=== PATIENT | female | born 1940 | race Caucasian/White ===

== ENCOUNTER → 2016-02-12 | Outpatient (REF) | payer OTHER ==
[~2016-02-12] MED LIST: /ADVA50050; /ESOM40CA; /FEXO18TA; ACET65TA; ALBU83IN; CALCCHW12; CEFT500T; CRES20TA; DIOV320T; FERR325T; FLON0.05; MUCINEX; PLAV75TA2; SING10TA31; TAMIFLU; TRIC145T19; VITA100027; ZEBE5TAB; ZETI10TA
[2016-02-12 14:01] LABS: INR 1.05
[2016-02-12 14:47] LABS: BLOOD UREA NITROGEN 17 MG/DL (7-18); CREATININE FOR GFR 0.64 MG/DL (0.55-1.02); GLOMERULAR FILTRATION RATE > 60.0 (>39)
== END | disposition home or self-care (01) ==
LOC: M LABDRAWP 13:12 → M LABDRAW1 13:12
PROVIDERS: ATTEND Physical Medicine & Rehabilitation
DX: M43.16 Spondylolisthesis, lumbar region (principal); M16.12 Unilateral primary osteoarthritis, left hip; M48.06 Spinal stenosis, lumbar region; Z79.01 Long term (current) use of anticoagulants

== ENCOUNTER → 2016-03-31 | Outpatient (REF) | payer OTHER ==
[2016-03-31 14:04] LABS: ALBUMIN 3.7 GM/DL (3.2-5.2); ALBUMIN/GLOBULIN RATIO 1.23 (1.00-1.93); ALKALINE PHOSPHATASE 57 U/L (45-117); ALT/SGPT 15 U/L (12-78); ANION GAP 10 MEQ/L (8-16); AST/SGOT 11 U/L (15-37); BILIRUBIN,TOTAL 0.3 MG/DL (0.2-1.0); BLOOD UREA NITROGEN 27 MG/DL (7-18); CALCIUM LEVEL 9.6 MG/DL (8.8-10.2); CARBON DIOXIDE LEVEL 26 MEQ/L (21-32); CHLORIDE LEVEL 108 MEQ/L (98-107); CREATININE FOR GFR 0.62 MG/DL (0.55-1.02); FERRITIN 119 NG/ML (8-252); GLOMERULAR FILTRATION RATE > 60.0 (>39); GLUCOSE, FASTING 105 MG/DL (83-110); PERCENT SATURATION 18.3 % (13.2-37.4); SODIUM LEVEL 144 MEQ/L (136-145); TOTAL IRON BINDING CAPACITY 295 UG/DL (250-450); TOTAL PROTEIN 6.7 GM/DL (6.4-8.2); VITAMIN B12 LEVEL 1816 PG/ML (247-911)
[2016-03-31 14:05] LABS: POTASSIUM SERUM 5.3 MEQ/L (3.5-5.1)
[2016-03-31 14:08] LABS: BASO % 0.5 % (0.0-1.0); EOS # 0.3 K/mm3 (0.0-0.50); EOS % 4.3 % (0.0-3.0); LARGE UNSTAINED CELL # 0.1 K/mm3 (0.0-0.4); LARGE UNSTAINED CELL % 2.4 % (0.0-4.0); LYMPH # 1.4 K/mm3 (1.5-4.5); LYMPH % 20.7 % (24.0-44.0); MEAN CORPUSCULAR HGB CONC 32.8 g/dl (32.0-36.5); MEAN CORPUSCULAR VOLUME 82.2 fl (80.0-96.0); MONO # 0.6 K/mm3 (0.0-0.8); MONO % 9.9 % (0.0-5.0); NEUTROPHILS # 3.7 K/mm3 (1.8-7.7); NEUTROPHILS % 62.1 % (36.0-66.0); PLATELET COUNT, AUTOMATED 374 k/mm3 (150-450); RED CELL DISTRIBUTION WIDTH 14.7 % (11.5-14.5)
[2016-04-01 11:05] LABS: PRETREATED FOLATE FOR RBCFOL 14.2 NG/ML
== END ==
LOC: M SFHCPLAZ 10:16
PROVIDERS: ATTEND Family Medicine
DX: D50.9 Iron deficiency anemia, unspecified (principal); E53.8 Deficiency of other specified B group vitamins

== ENCOUNTER → 2016-07-15 | Outpatient (CLI) | payer OTHER ==
--- NOTE | 2016-07-15 12:12 | REPMRS ---
Patient History The patient states she has not had a clinical breast exam in over a year. Patient is postmenopausal. Family history of prostate cancer in father at age 50 or over. Digital Woman Screen Mammo: July 15, 2016 - Exam #: [id number] Bilateral CC and MLO view(s) were taken. Technologist: Queenie Kirby, Technologist Prior study comparison: July 23, 2015, digital woman screen mammo performed at [facility]. August 08, 2014, digital woman screen mammo performed at [facility]. July 13, 2013, digital woman screen mammo performed at [facility]. FINDINGS: There are scattered fibroglandular densities. There has been no change in the appearance of the mammogram from the prior studies. There is a mild amount of scattered fibroglandular density which is fairly symmetric. There is no interval development of dominant mass, architectural distortion, or clustered microcalcification suggestive of malignancy. ASSESSMENT: BI-RADS/ACR category 1 mammogram. Negative. Recommendation Routine screening mammogram in 1 year (for women over age 40). This mammogram was interpreted with the aid of an FDA-approved computer-aided dectection system. Electronically Signed By: Yonis Alexander MD 07/15/16 [id number]
== END ==
LOC: M WHC 10:53
PROVIDERS: ATTEND Family Medicine
DX: Z12.31 Encounter for screening mammogram for malignant neoplasm of breast (principal); Z78.0 Asymptomatic menopausal state; Z80.42 Family history of malignant neoplasm of prostate

== ENCOUNTER → 2016-08-15 | Outpatient (REF) | payer OTHER ==
[~2016-08-15] MED LIST changes: +ACET30TAB PO; +ADV250INH INH; +AMLO25TA PO; +ASPI81TA18 PO; +ASTE0.15; +AVAP150T31 PO; +BENA25TA10 PO; +BISO10TA PO; +BISO5TAB5 PO; +CALC1TAB74 PO; +CLAR1TAB2 PO; +COLA100C5 PO; -CRES20TA; +CRES20TA PO; +FERR240T PO; +FERR32TA PO; +MELA3TAB49 PO; +MIRA3350 PO; +MULT1CHW39 PO; +OMEG100011 PO; -PLAV75TA2; +PLAV75TA2 PO; +PROT1TAB2 PO; -VITA100027; +VITA100027 PO; +VITA10006 PO; +VITA100066 PO; +VITMTA PO
[2016-08-15 12:02] LABS: BASO # 0.2 K/mm3 (0.0-0.2); BASO % 2.6 % (0.0-1.0); EOS # 0.2 K/mm3 (0.0-0.50); EOS % 1.9 % (0.0-3.0); LARGE UNSTAINED CELL # 0.3 K/mm3 (0.0-0.4); LARGE UNSTAINED CELL % 3.3 % (0.0-4.0); LYMPH # 1.3 K/mm3 (1.5-4.5); LYMPH % 13.9 % (24.0-44.0); MEAN CORPUSCULAR HEMOGLOBIN 27.2 pg (27.0-33.0); MEAN CORPUSCULAR HGB CONC 32.5 g/dl (32.0-36.5); MEAN CORPUSCULAR VOLUME 83.7 fl (80.0-96.0); MONO # 0.7 K/mm3 (0.0-0.8); MONO % 7.3 % (0.0-5.0); NEUTROPHILS # 6.5 K/mm3 (1.8-7.7); PLATELET COUNT, AUTOMATED 334 k/mm3 (150-450); RED CELL DISTRIBUTION WIDTH 14.5 % (11.5-14.5); RETIC HEMOGLOBIN CONTENT CHr 28.8 PG (24-36); RETICULOCYTE ABSOLUTE ADVIA212 115 x10(9)/L (17-77); WHITE BLOOD COUNT 9.2 K/mm3 (4.0-10.0)
[2016-08-15 12:27] LABS: ALBUMIN 3.8 GM/DL (3.2-5.2); ALBUMIN/GLOBULIN RATIO 1.12 (1.00-1.93); ALKALINE PHOSPHATASE 57 U/L (45-117); ALT/SGPT 19 U/L (12-78); ANION GAP 7 MEQ/L (8-16); AST/SGOT 11 U/L (15-37); BILIRUBIN,TOTAL 0.4 MG/DL (0.2-1.0); BLOOD UREA NITROGEN 16 MG/DL (7-18); CALCIUM LEVEL 9.6 MG/DL (8.8-10.2); CARBON DIOXIDE LEVEL 30 MEQ/L (21-32); CHLORIDE LEVEL 106 MEQ/L (98-107); CHOLESTEROL LEVEL 118 MG/DL (<200); CREATININE FOR GFR 0.65 MG/DL (0.55-1.02); FERRITIN 47 NG/ML (8-252); FREE T4 1.02 NG/DL (0.76-1.46); GLOMERULAR FILTRATION RATE > 60.0 (>39); GLUCOSE, FASTING 103 MG/DL (83-110); PERCENT SATURATION 14.7 % (13.2-37.4); POTASSIUM SERUM 4.8 MEQ/L (3.5-5.1); SODIUM LEVEL 143 MEQ/L (136-145); TOTAL IRON BINDING CAPACITY 326 UG/DL (250-450); TOTAL PROTEIN 7.2 GM/DL (6.4-8.2); TRIGLYCERIDES LEVEL 348 MG/DL (<150)
[2016-08-18 13:39] LABS: ALBUMIN % 57.1 % (55.8-66.1)
[2016-08-18 13:40] LABS: ALBUMIN 4.11 GM/DL (3.29-5.55); GAMMA GLOBULIN % 11.9 % (11.1-18.8)
== END ==
LOC: M SFHCPLAZ 09:45
PROVIDERS: ATTEND Family Medicine
DX: D50.9 Iron deficiency anemia, unspecified (principal); I10 Essential (primary) hypertension

== ENCOUNTER → 2016-09-02 | Outpatient (REF) | payer OTHER ==
[2016-09-02 14:09] LABS: INR 0.98
== END ==
LOC: M LABDRAW1 13:43
PROVIDERS: ATTEND Physical Medicine & Rehabilitation
DX: S22.080D Wedge compression fracture of T11-T12 vertebra, subsequent encounter for fracture with routine healing (principal); X58.XXXD Exposure to other specified factors, subsequent encounter; Y92.9 Unspecified place or not applicable; Y93.9 Activity, unspecified; Y99.9 Unspecified external cause status; Z79.01 Long term (current) use of anticoagulants

== ENCOUNTER 2016-09-11 10:32 | Emergency (ER) | payer OTHER ==
[~2016-09-11] VITALS: Ht 152.4 cm; Wt 70.5 kg
[~2016-09-11 10:32] MED LIST changes: -ACET30TAB PO; -ADV250INH INH; -AMLO25TA PO; -ASPI81TA18 PO; -ASTE0.15; -AVAP150T31 PO; -BENA25TA10 PO; -BISO10TA PO; -BISO5TAB5 PO; -CALC1TAB74 PO; -CLAR1TAB2 PO; -COLA100C5 PO; -FERR240T PO; -FERR32TA PO; -MELA3TAB49 PO; -MIRA3350 PO; -MULT1CHW39 PO; -OMEG100011 PO; -PROT1TAB2 PO; -VITA10006 PO; -VITA100066 PO; -VITMTA PO
[2016-09-11] MEDS ORDERED: CLAR1TAB2 PO (11:06)
[2016-09-11] MEDS ORDERED: AVAP150T31 PO (11:06)
[2016-09-11] MEDS ORDERED: ASTE0.15 (11:06)
[2016-09-11] MEDS ORDERED: FERR240T PO (11:06)
[2016-09-11] MEDS ORDERED: BISO10TA PO (11:06)
[2016-09-11] MEDS ORDERED: ACET30TAB PO ×2 (11:06→12:40)
[2016-09-11] MEDS ORDERED: PROT1TAB2 PO (11:06)
[2016-09-11] MEDS ORDERED: VITA100066 PO (11:06)
[2016-09-11] MEDS ORDERED: ASPI81TA18 PO (11:06)
[2016-09-11] MEDS ORDERED: MULT1CHW39 PO (11:06)
[2016-09-11] MEDS ORDERED: MIRA3350 PO (11:06)
[2016-09-11] MEDS ORDERED: BENA25TA10 PO (11:06)
[2016-09-11] MEDS ORDERED: MELA3TAB49 PO (11:06)
[2016-09-11] MEDS ORDERED: OMEG100011 PO (11:06)
[2016-09-11] MEDS ORDERED: COLA100C5 PO (11:06)
[2016-09-11] MEDS ORDERED: VITA10006 PO (11:06)
[2016-09-11] MEDS ORDERED: AMLO25TA PO (11:06)
[2016-09-11] MEDS ORDERED: MORPHINE 2 MG/ML 1ML SYRINGE As Ordered ONE (11:24)
[2016-09-11] MEDS ORDERED: ONDANSETRON 4MG/2ML VIAL (J2405) IV ONE (11:30)
[2016-09-11] MEDS ORDERED: MORPHINE 2 MG/ML 1ML SYRINGE IV ONE (11:30)
[2016-09-11 12:17] VITALS: BP 158/71
--- NOTE | 2016-09-11 12:48 | REP ---
LUMBAR SPINE COMPLETE: 09/11/2016 CLINICAL HISTORY: Lumbar spine tender to palpation. COMPARISON: X-ray 07/21/2013, MRI 12/05/2014. FINDINGS: Five views show the normal lumbar lordosis slightly exaggerated. There are a few millimeters of anterolisthesis of L4 and L5 due to facet arthritis. Disc space is narrowed at L5-S1. There are discogenic endplate changes at L1-2 and T12-L1. A compression deformity is seen. Slight narrowing at L1-2 and anterior osteophytes at most levels. No compression deformity in the visualized lower thoracic levels. Facet arthropathy at L3-4 through L5-S1 with no spondylolysis. There is a mild dextrorotatory curve at L2. The pedicles, spinous and transverse processes are intact. Right upper quadrant clips and clips over the level of the upper aspect right iliac bone also noted. Gas pattern nonspecific. SI joints with sclerosis inferiorly representing some sacroiliitis, greater right than left. Hip degenerative changes and sclerosis symphysis pubis also noted. IMPRESSION: 1. Diffuse degenerative disc change and facet arthritis lower lumbar spine with a few millimeters of anterolisthesis of L4 on 5 unchanged with no compression deformity or destructive lesion. 2. Bilateral sacroiliitis right greater than left. There is degenerative changes in the lower thoracic spine. Vertebral degenerative changes without destructive bone lesion. No visible acute fracture. 3. If your clinical suspicion is high in a trauma setting, consider further imaging with CT. Signed by Saroj Lizarraga MD 09/11/2016 06:32 P
--- NOTE | 2016-09-11 13:20 | REP ---
AP pelvis with left hip: 09/11/2016. Clinical history: Left hip pain, tenderness. Comparison: Hip injection fluoroscopic image 06/23/2016, 04/21/2016, MRI hip 12/05/2014. AP pelvis shows pelvic ring intact. There is sacroiliitis right greater than left and some sclerosis at the symphysis pubis. I see no disruption or fracture of the pelvic ring . Iliac wings are intact. Degenerative disc and facet changes lower lumbar spine. Bones demineralized. Mild hip arthritis on the right. Severe hip arthritis on the left side with flattening of the femoral head, sclerosis of the subchondral bone of the acetabular roof and femoral head and cystic changes as well. There is some progressive flattening of the femoral head representing advanced osteoarthritis and possibly early AVN. No acute fracture. Impression: 1. Bilateral sacroiliitis with bilateral hip arthritis, left much worse than right and progressive hip arthritis symptoms and flattening of that femoral head with sclerosis, acetabular roof and hip with subchondral cyst as well. No definite acute fracture on these images. Certainly, progression of the left hip arthritis and its severity since the MRI in November 28, 2014. Signed by Saroj Lizarraga MD 09/11/2016 06:32 P
== END 2016-09-11 12:51 | disposition home or self-care (01) ==
LOC: M ED 10:32
DX: M54.32 Sciatica, left side (principal); M51.36 Other intervertebral disc degeneration, lumbar region; M46.1 Sacroiliitis, not elsewhere classified; Z87.891 Personal history of nicotine dependence; Z88.1 Allergy status to other antibiotic agents; Z88.2 Allergy status to sulfonamides; Z88.8 Allergy status to other drugs, medicaments and biological substances; Z79.82 Long term (current) use of aspirin; Z79.899 Other long term (current) drug therapy
CPT/HCPCS: 72110; 73502; 96374; 96375; 99283; J2405

== ENCOUNTER 2016-11-11 16:23 | Inpatient (IN) | payer OTHER, BC ==
[~2016-11-11] VITALS: Ht 152.4 cm; Wt 73.5 kg
[~2016-11-11 16:23] MED LIST changes: -ADV250INH INH; -BISO5TAB5 PO; -CALC1TAB74 PO; -DESFLURANE 240 ML INHALANT As Ordered ONE; -FERR32TA PO; -GLYCOPYRROLATE INJ 0.2 MG/ML 2 ML VIAL As Ordered ONE; -MIDAZOLAM INJ 2 MG/2 ML VIAL (J2250) As Ordered ONE; -NEOSTIGMINE 10 MG/10 ML VIAL (J2710) As Ordered ONE; -PHENYLEPHRINE INJ 10MG/ML VIAL (J2370) As Ordered ONE; -PHENYLephrine HCL 500 MCG/5 ML (100MCG/ML) SYRINGE (J2370) As Ordered ONE; -PROPOFOL 500 MG/50 ML VIAL As Ordered ONE; -REMIFENTANIL 1MG 3ML VIAL As Ordered ONE; -ROCURONIUM BROMIDE 50 MG/5 ML VIAL/SYRINGE As Ordered ONE; -VITMTA PO; -ePHEDrine SULFATE 25 MG/5 ML(5MG/ML) SYRINGE As Ordered ONE; -fentaNYL 100 MCG/2 ML INJECTION (J3010) As Ordered ONE
[2016-11-11 18:00] VITALS: BP 138/60
[2016-11-11] MEDS ORDERED: GASTROGRAFIN SOLUTION 30ML PO ONE ×2 (18:00)
[2016-11-11 18:12] LABS: ALBUMIN 3.9 GM/DL (3.2-5.2); ALBUMIN/GLOBULIN RATIO 1.15 (1.00-1.93); ALKALINE PHOSPHATASE 59 U/L (45-117); ALT/SGPT 19 U/L (12-78); ANION GAP 5 MEQ/L (8-16); AST/SGOT 9 U/L (15-37); BILIRUBIN,TOTAL 0.4 MG/DL (0.2-1.0); BLOOD UREA NITROGEN 20 MG/DL (7-18); CALCIUM LEVEL 9.3 MG/DL (8.8-10.2); CARBON DIOXIDE LEVEL 28 MEQ/L (21-32); CHLORIDE LEVEL 108 MEQ/L (98-107); CREATININE FOR GFR 0.55 MG/DL (0.55-1.02); GLOMERULAR FILTRATION RATE > 60.0 (>39); GLUCOSE, FASTING 96 MG/DL (83-110); POTASSIUM SERUM 4.3 MEQ/L (3.5-5.1); SODIUM LEVEL 141 MEQ/L (136-145); TOTAL PROTEIN 7.3 GM/DL (6.4-8.2)
[2016-11-11] MEDS ORDERED: VITMTA PO (18:27)
[2016-11-11] MEDS ORDERED: CALC1TAB74 PO (18:27)
[2016-11-11] MEDS ORDERED: BISO5TAB5 PO (18:27)
[2016-11-11] MEDS ORDERED: FERR32TA PO (18:27)
[2016-11-11] MEDS ORDERED: ADV250INH INH (18:27)
[2016-11-11] MEDS ORDERED: GASTROGRAFIN SOLUTION 30ML (Q9963) PO ONE ×2 (18:30)
[2016-11-11] MEDS ORDERED: ISOVUE-370 76% 100ML VIAL (Q9967) As Ordered ONE (19:50)
[2016-11-11 20:03] LABS: BASO % 0.2 % (0.0-1.0); EOS # 0.1 10^3/uL (0.0-0.50); EOS % 0.9 % (0.0-3.0); LYMPH # 1.4 10^3/uL (1.5-4.5); LYMPH % 15.1 % (24.0-44.0); MEAN CORPUSCULAR HEMOGLOBIN 26.9 pg (27.0-33.0); MEAN CORPUSCULAR HGB CONC 31.6 g/dl (32.0-36.5); MEAN CORPUSCULAR VOLUME 85.1 fl (80.0-96.0); MONO % 10.8 % (0.0-5.0); NEUTROPHILS # 6.7 10^3/uL (1.8-7.7); PLATELET COUNT, AUTOMATED 365 10^3/uL (150-450); RED CELL DISTRIBUTION WIDTH 15.5 % (11.5-14.5); WHITE BLOOD COUNT 9.5 10^3/uL (4.0-10.0)
[2016-11-11] MEDS: ADVAIR HFA 115/21MCG INHALER INH SCH (20:12)
--- NOTE | 2016-11-11 20:28 | REP ---
CT of the chest with IV contrast: Comparison is 02/04/2006. There is a 14 mm nodule in the anterior segment of the right lower lobe on image one. This was not present previously. There are no other masses or nodules. There are no infiltrates or effusions. There is no mediastinal or hilar adenopathy. No axillary adenopathy. Thoracic aorta is unremarkable. Cardiac size is normal. Impression: There is a 14 mm nodule in the anterior segment of the right lower lobe, not present on the comparison study. Signed by Chidi Urena MD 11/11/2016 08:20 P
--- NOTE | 2016-11-11 20:39 | REP ---
CT of the abdomen pelvis without and with IV contrast, multiphase imaging: Comparison is 12/14/2004. The hepatic parenchyma is homogeneous on all phases. There are no hepatic masses. There are surgical clips in the gallbladder fossa. The pancreas and spleen are unremarkable. The adrenals and kidneys are unchanged and unremarkable. Abdominal aorta is unremarkable. There is no retroperitoneal mesenteric adenopathy. There is no bowel distension. Pelvis: There are surgical clips at the cecal tip. There is wall thickening of the terminal ileum, however this is unchanged. There is a fat-containing midline ventral hernia above the umbilicus, unchanged. There is a small hiatal hernia, unchanged. The pelvic bowel loops are otherwise unremarkable. Impression: There is no mass, adenopathy, or ascites. There is chronic thickening of the terminal ileum, unchanged. There is a fat-containing ventral hernia, unchanged. Small hiatal hernia, unchanged. There are no lytic, blastic or destructive skeletal changes. There is degenerative disc disease in the lumbar spine. There is bilateral hip osteoarthritis, worse on the left. Signed by Chidi Urena MD 11/11/2016 08:31 P
[2016-11-11 20:46] LABS: ADD MORPHOLOGY? NO
[2016-11-11] MEDS: ROSUVASTATIN 10 MG TAB (CRESTOR) PO SCH (21:17)
[2016-11-11] MEDS: CALCIUM/VITAMIN D 500 MG TAB PO SCH (21:18)
[2016-11-11] MEDS: levETIRAcetam 250MG TABLET (KEPPRA) PO SCH (21:18)
[2016-11-11] MEDS: IRBESARTAN 150 MG TAB PO SCH (21:18)
[2016-11-11] MEDS: BISOPROLOL FUMARATE 5 MG TAB PO SCH (21:18)
[2016-11-11] MEDS: ACETAMINOPHEN 500 MG TAB PO PRN (21:19)
[2016-11-11 22:00] VITALS: BP 132/65
[2016-11-12 06:00] VITALS: BP 129/60
[2016-11-12 06:12] LABS: MEAN CORPUSCULAR HEMOGLOBIN 26.6 pg (27.0-33.0); MEAN CORPUSCULAR HGB CONC 32.2 g/dl (32.0-36.5); MEAN CORPUSCULAR VOLUME 82.5 fl (80.0-96.0); PLATELET COUNT, AUTOMATED 338 10^3/uL (150-450); RED CELL DISTRIBUTION WIDTH 14.9 % (11.5-14.5); WHITE BLOOD COUNT 7.7 10^3/uL (4.0-10.0)
[2016-11-12 06:20] LABS: ADD MANUAL DIFFER YES; DIFF SLIDE NUMBER 83
[2016-11-12 06:42] LABS: ALBUMIN 3.8 GM/DL (3.2-5.2); ALBUMIN/GLOBULIN RATIO 1.06 (1.00-1.93); ALKALINE PHOSPHATASE 62 U/L (45-117); ALT/SGPT 19 U/L (12-78); ANION GAP 8 MEQ/L (8-16); AST/SGOT 9 U/L (15-37); BILIRUBIN,TOTAL 0.4 MG/DL (0.2-1.0); BLOOD UREA NITROGEN 16 MG/DL (7-18); CALCIUM LEVEL 9.8 MG/DL (8.8-10.2); CARBON DIOXIDE LEVEL 27 MEQ/L (21-32); CHLORIDE LEVEL 106 MEQ/L (98-107); GLOMERULAR FILTRATION RATE > 60.0 (>39); GLUCOSE, FASTING 145 MG/DL (83-110); POTASSIUM SERUM 4.7 MEQ/L (3.5-5.1); SODIUM LEVEL 141 MEQ/L (136-145); TOTAL PROTEIN 7.4 GM/DL (6.4-8.2)
[2016-11-12 07:13] LABS: ANISOCYTOSIS 1+
[2016-11-12] MEDS: ADVAIR HFA 115/21MCG INHALER INH SCH ×2 (07:53→19:22)
[2016-11-12] MEDS ORDERED: PROHANCE 279.3MG/ML 5ML VIAL (A9576) As Ordered ONE (08:37)
[2016-11-12] MEDS ORDERED: PROHANCE 279.3MG/ML 15ML VIAL (A9576) As Ordered ONE (08:37)
--- NOTE | 2016-11-12 09:32 | REP ---
MRI BRAIN WITHOUT AND WITH CONTRAST: HISTORY: Left temporal lobe mass. CONTRAST : ProHance 17 mL. COMPARISON: CT 11/11/2016. A mass with ring-like enhancement is present in the left temporal lobe. The mass measures 2.5 cm in transverse by 4.5 cm in AP by 2.7 cm in cephalocaudal dimensions. Surrounding vasogenic edema is present. There is mass effect with partial effacement of the overlying cortical sulci and atrium and occipital horn of the left lateral ventricle. There is no midline shift. Increased signal intensity on T2-weighted images is present in the medial left parietal lobe. There is partial effacement of the overlying cortical sulci. There is no enhancement with contrast. Areas of increased signal intensity on T2-weighted images are present in the periventricular and subcortical white matter. This represents small vessel ischemic disease. There is no intraparenchymal hemorrhage or infarct. The ventricular system and cortical sulci are dilated consistent with mild volume loss. There is no extracerebral collection. A retention cyst is present in the left maxillary sinus. IMPRESSION: 1. 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 2. There is an area of increased signal intensity in the medial left parietal lobe with associated mass effect. This is suspicious for a low grade glioma. 3. Small vessel ischemic disease. 4. Mild volume loss. Signed by Elias Ruelas MD 11/12/2016 09:41 A
[2016-11-12] MEDS: levETIRAcetam 250MG TABLET (KEPPRA) PO SCH ×2 (10:07→21:45)
[2016-11-12] MEDS: FERROUS GLUCONATE 324 MG TAB PO SCH (10:07)
[2016-11-12] MEDS: IRBESARTAN 150 MG TAB PO SCH ×2 (10:07→21:45)
[2016-11-12] MEDS: CALCIUM/VITAMIN D 500 MG TAB PO SCH ×2 (10:08→21:44)
[2016-11-12] MEDS: PANTOPRAZOLE 40MG TAB (PROTONIX) PO SCH (10:08)
[2016-11-12] MEDS: CYANOCOBALAMIN 500 MCG TAB PO SCH (10:08)
[2016-11-12] MEDS: BISOPROLOL FUMARATE 5 MG TAB PO SCH ×2 (10:09→21:44)
[2016-11-12] MEDS: LORATADINE 10 MG TAB PO SCH (10:09)
[2016-11-12] MEDS: ACETAMINOPHEN 500 MG TAB PO PRN ×2 (11:02→21:44)
--- NOTE | 2016-11-12 11:58 | IPNPDOC ---
Subjective Date Seen The patient was seen on 11/12/16. Subjective Chief Complaint/HPI The patient is a 76-year-old female admitted with a reason for visit of Brain Mass. Events since last encounter Pt still having headaches. Still having some difficulty finding the correct words. Denies weakness, dizziness, vision changes, CP, SOB, Abd pain. Constitutional: Denies: Chills, Fever Pulmonary: Denies: Dyspnea Cardiovascular: Denies: Chest Pain Gastrointestinal: Denies: Abdominal Pain Neurological: Reports: Other Symptoms (Headaches. Difficulty finding the correct words.) Objective Physical Examination General Exam: Positive: Alert, No Acute Distress Neck Exam: Positive: Supple, Negative: JVD Chest Exam: Positive: Clear to auscultation Heart Exam: Positive: Rate Normal, Regular Rhythm Abdomen Exam: Positive: Normal bowel sounds, Soft, Negative: Tenderness Extremity Exam: Negative: Edema Neuro Exam: Positive: Normal Speech, Strength at 5/5 X4 ext, Cranial Nerves 3- 12 NL Assessment /Plan Problems (1) Brain mass Problem Specific Plan: Consult Specialist, Monitor Clinically, Repeat Labs Problem Text: 11/12 - MRI Brain: There is a ring enhancing mass in the left temporal lobe consistent with a high grade glioma. There is an area of increased signal intensity in the medial left parietal lobe with associated mass effect. This is suspicious for a low grade glioma. Small vessel ischemic disease. Mild volume loss. Dr Norris consulted and spoke to pt about bx on Thursday. Pt's aspirin and plavix were held at admission. CT Chest and Abd/pel were obtained to search for primary. CT Chest: 14 mm nodule in the anterior segment of the right lower lobe, not present on the comparison study. CT Abd/pel: No mass, adenopathy, or ascites. Chronic thickening of the terminal ileum, unchanged. Fat-containing ventral hernia, unchanged. Small hiatal hernia , unchanged. No lytic, blastic or destructive skeletal changes. Degenerative disc disease in the lumbar spine. Bilateral hip osteoarthritis, worse on the left. (2) Lung nodule Problem Text: 11/12 - CT Chest: 14 mm nodule in the anterior segment of the right lower lobe, not present on the comparison study. Discuss with attending. (3) HTN (hypertension) Status: Chronic Problem Specific Plan: Monitor Clinically Problem Text: On Avapro, Zebeta, Norvasc with hold parameters. (4) CAD (coronary artery disease) Status: Chronic Problem Specific Plan: Monitor Clinically Problem Text: Out patient aspirin and plavix have been held in anticipation of biopsy. (5) COPD (chronic obstructive pulmonary disease) Status: Chronic Problem Specific Plan: Monitor Clinically Problem Text: Stable (6) Hyperlipidemia Status: Chronic Problem Specific Plan: Monitor Clinically Problem Text: On Crestor. (7) Anemia Status: Chronic Problem Specific Plan: Monitor Clinically Problem Text: On Supplemental B12 and Iron. Plan/VTE VTE Prophylaxis Ordered?: Yes (TEDs and SCDs) VS, I&O, 24H, Fishbone Vital Signs/I&O Vital Signs Date Time Temp Pulse Resp B/P (MAP) Pulse Ox O2 Delivery O2 Flow Rate FiO2 11/12/16 06:00 98.0 65 18 129/60 (83) 95 Nasal Cannula 2.0 I&O- Last 24 Hours up to 6 AM 11/13/16 06:00 Intake Total 400 ml Output Total 200 ml Balance 200 ml Laboratory Data 24H LABS Laboratory Tests 2 11/11/16 17:17: Immature Granulocyte % (Auto) 3.0H, White Blood Count 9.5, Red Blood Count 4.50 , Hemoglobin 12.1, Hematocrit 38.3, Mean Corpuscular Volume 85.1, Mean Corpuscular Hemoglobin 26.9L, Mean Corpuscular Hemoglobin Concent 31.6L, Red Cell Distribution Width 15.5H, Platelet Count 365, Neutrophils (%) (Auto) 70.0H , Lymphocytes (%) (Auto) 15.1L, Monocytes (%) (Auto) 10.8H, Eosinophils (%) ( Auto) 0.9, Basophils (%) (Auto) 0.2, Neutrophils # (Auto) 6.7, Lymphocytes # ( Auto) 1.4L, Monocytes # (Auto) 1.0H, Eosinophils # (Auto) 0.1, Basophils # (Auto ) 0.0, Immature Granulocyte # (Auto) 0.3H, Nucleated Red Blood Cells % (auto) 0.0, Anion Gap 5L, Glomerular Filtration Rate > 60.0, Blood Urea Nitrogen 20H, Creatinine 0.55, Sodium Level 141, Potassium Level 4.3, Chloride Level 108H, Carbon Dioxide Level 28, Calcium Level 9.3, Aspartate Amino Transf (AST/SGOT) 9L , Alanine Aminotransferase (ALT/SGPT) 19, Alkaline Phosphatase 59, Total Bilirubin 0.4, Total Protein 7.3, Albumin 3.9, Albumin/Globulin Ratio 1.15, Thyroid Stimulating Hormone (TSH) 1.320 11/12/16 05:44: Immature Granulocyte % (Auto) , Nucleated Red Blood Cells % (auto) 0.0, Anion Gap 8, Glomerular Filtration Rate > 60.0, Blood Urea Nitrogen 16, Creatinine 0.60, Sodium Level 141, Potassium Level 4.7, Chloride Level 106, Carbon Dioxide Level 27, Calcium Level 9.8, Aspartate Amino Transf (AST/SGOT) 9L, Alanine Aminotransferase (ALT/SGPT) 19, Alkaline Phosphatase 62, Total Bilirubin 0.4, Total Protein 7.4, Albumin 3.8, Albumin/Globulin Ratio 1.06, Neutrophils 89H, Lymphocytes (Manual) 9L, Monocytes (Manual) 1, Atypical Lymphocytes 1, Platelet Estimate NORMAL, Anisocytosis 1+ CBC/BMP Laboratory Tests 11/11/16 17:17 Red Blood Count 4.50, Mean Corpuscular Volume 85.1, Mean Corpuscular Hemoglobin 26.9 L, Mean Corpuscular Hemoglobin Concent 31.6 L, Red Cell Distribution Width 15.5 H, Neutrophils (%) (Auto) 70.0 H, Lymphocytes (%) (Auto) 15.1 L, Monocytes (%) (Auto) 10.8 H, Eosinophils (%) (Auto) 0.9, Basophils (%) (Auto) 0.2, Neutrophils # (Auto) 6.7, Lymphocytes # (Auto) 1.4 L, Monocytes # (Auto) 1.0 H, Eosinophils # (Auto) 0.1, Basophils # (Auto) 0.0, Calcium Level 9.3, Aspartate Amino Transf (AST/SGOT) 9 L, Alanine Aminotransferase (ALT/SGPT) 19, Alkaline Phosphatase 59, Total Bilirubin 0.4, Total Protein 7.3, Albumin 3.9 11/12/16 05:44 Red Blood Count 4.63, Mean Corpuscular Volume 82.5, Mean Corpuscular Hemoglobin 26.6 L, Mean Corpuscular Hemoglobin Concent 32.2, Red Cell Distribution Width 14.9 H, Calcium Level 9.8, Aspartate Amino Transf (AST/SGOT) 9 L, Alanine Aminotransferase (ALT/SGPT) 19, Alkaline Phosphatase 62, Total Bilirubin 0.4, Total Protein 7.4, Albumin 3.8 Raciel Peck Nov 12, 2016 11:58
[2016-11-12 14:00] VITALS: BP 132/63
[2016-11-12] MEDS: ROSUVASTATIN 10 MG TAB (CRESTOR) PO SCH (21:44)
[2016-11-12 22:00] VITALS: BP 146/67
[2016-11-13] MEDS: ACETAMINOPH W/CODEINE #3 TAB UD PO PRN ×3 (00:12→20:49)
[2016-11-13 06:00] VITALS: BP 142/66
[2016-11-13 06:30] LABS: MEAN CORPUSCULAR HEMOGLOBIN 26.3 pg (27.0-33.0); MEAN CORPUSCULAR HGB CONC 31.9 g/dl (32.0-36.5); MEAN CORPUSCULAR VOLUME 82.5 fl (80.0-96.0); PLATELET COUNT, AUTOMATED 407 10^3/uL (150-450); RED CELL DISTRIBUTION WIDTH 14.8 % (11.5-14.5); WHITE BLOOD COUNT 13.8 10^3/uL (4.0-10.0)
[2016-11-13] MEDS: ADVAIR HFA 115/21MCG INHALER INH SCH ×2 (06:32→20:11)
[2016-11-13 06:39] LABS: ADD MANUAL DIFFER YES; ALBUMIN 3.7 GM/DL (3.2-5.2); ALBUMIN/GLOBULIN RATIO 0.95 (1.00-1.93); ALKALINE PHOSPHATASE 53 U/L (45-117); ALT/SGPT 19 U/L (12-78); ANION GAP 10 MEQ/L (8-16); AST/SGOT 7 U/L (15-37); BILIRUBIN,TOTAL 0.3 MG/DL (0.2-1.0); BLOOD UREA NITROGEN 24 MG/DL (7-18); CALCIUM LEVEL 10.2 MG/DL (8.8-10.2); CARBON DIOXIDE LEVEL 25 MEQ/L (21-32); CHLORIDE LEVEL 107 MEQ/L (98-107); CREATININE FOR GFR 0.69 MG/DL (0.55-1.02); DIFF SLIDE NUMBER 64; GLOMERULAR FILTRATION RATE > 60.0 (>39); GLUCOSE, FASTING 150 MG/DL (83-110); POTASSIUM SERUM 4.4 MEQ/L (3.5-5.1); SODIUM LEVEL 142 MEQ/L (136-145); TOTAL PROTEIN 7.6 GM/DL (6.4-8.2)
[2016-11-13 07:18] LABS: ANISOCYTOSIS 1+
[2016-11-13] MEDS: CALCIUM/VITAMIN D 500 MG TAB PO SCH ×2 (08:25→20:48)
[2016-11-13] MEDS: levETIRAcetam 250MG TABLET (KEPPRA) PO SCH ×2 (08:25→20:46)
[2016-11-13] MEDS: IRBESARTAN 150 MG TAB PO SCH ×2 (08:25→20:47)
[2016-11-13] MEDS: CYANOCOBALAMIN 500 MCG TAB PO SCH (08:25)
[2016-11-13] MEDS: FERROUS GLUCONATE 324 MG TAB PO SCH (08:25)
[2016-11-13] MEDS: PANTOPRAZOLE 40MG TAB (PROTONIX) PO SCH (08:25)
[2016-11-13] MEDS: LORATADINE 10 MG TAB PO SCH (08:26)
[2016-11-13] MEDS: BISOPROLOL FUMARATE 5 MG TAB PO SCH ×2 (08:26→20:48)
[2016-11-13] MEDS: MIRALAX *UNIT DOSE* 17GM PACKET PO SCH (08:26)
[2016-11-13] MEDS ORDERED: INFLUENZA VIRUS VACCINE HIGH DOSE 0.5 ML SYRINGE (90662) IM ONE (09:00)
[2016-11-13] MEDS ORDERED: PREVNAR 13 VACCINE SYRINGE (CPT CODE:90670) IM ONE (09:00)
--- NOTE | 2016-11-13 12:35 | IPNPDOC ---
Subjective Date Seen The patient was seen on 11/13/16. Subjective Chief Complaint/HPI The patient is a 76-year-old female admitted with a reason for visit of Brain Mass. Events since last encounter Pt still having headaches but notes pain meds are helping. Still having some difficulty finding the correct words at times. Denies weakness, dizziness, vision changes, CP, SOB, Abd pain. Constitutional: Denies: Chills, Fever Pulmonary: Denies: Dyspnea Cardiovascular: Denies: Chest Pain Gastrointestinal: Denies: Abdominal Pain Neurological: Reports: Other Symptoms (Headaches. Difficulty finding the correct words), Denies: Weakness Objective Physical Examination General Exam: Positive: Alert, No Acute Distress Neck Exam: Positive: Supple, Negative: JVD Chest Exam: Positive: Clear to auscultation Heart Exam: Positive: Rate Normal, Regular Rhythm Abdomen Exam: Positive: Normal bowel sounds, Soft, Negative: Tenderness Extremity Exam: Negative: Edema Neuro Exam: Positive: Normal Speech, Strength at 5/5 X4 ext, Cranial Nerves 3- 12 NL Assessment /Plan Problems (1) Brain mass Problem Specific Plan: Consult Specialist, Monitor Clinically, Repeat Labs Problem Text: 11/13 - WBC up to 13.8. Pt is on steroids. JFW: spoke witgh Dr Robin, he will let us know when we can restart ASA/ Plavix MRI Brain: There is a ring enhancing mass in the left temporal lobe consistent with a high grade glioma. There is an area of increased signal intensity in the medial left parietal lobe with associated mass effect. This is suspicious for a low grade glioma. Small vessel ischemic disease. Mild volume loss. Dr Norris consulted and spoke to pt about bx on Thursday. Pt's aspirin and plavix were held at admission. CT Chest and Abd/pel were obtained to search for primary. CT Chest: 14 mm nodule in the anterior segment of the right lower lobe, not present on the comparison study. CT Abd/pel: No mass, adenopathy, or ascites. Chronic thickening of the terminal ileum, unchanged. Fat-containing ventral hernia, unchanged. Small hiatal hernia , unchanged. No lytic, blastic or destructive skeletal changes. Degenerative disc disease in the lumbar spine. Bilateral hip osteoarthritis, worse on the left. (2) Lung nodule Problem Text: CT Chest: 14 mm nodule in the anterior segment of the right lower lobe, not present on the comparison study. Discuss with attending. (3) Brain compression Problem Specific Plan: Monitor Clinically Problem Text: Secondary to mass effect. See above. (4) HTN (hypertension) Status: Chronic Problem Specific Plan: Monitor Clinically Problem Text: On Avapro, Zebeta, Norvasc with hold parameters. (5) CAD (coronary artery disease) Status: Chronic Problem Specific Plan: Monitor Clinically Problem Text: Out patient aspirin and plavix have been held in anticipation of biopsy. (6) COPD (chronic obstructive pulmonary disease) Status: Chronic Problem Specific Plan: Monitor Clinically Problem Text: Stable (7) Hyperlipidemia Status: Chronic Problem Specific Plan: Monitor Clinically Problem Text: On Crestor. (8) Anemia Status: Chronic Problem Specific Plan: Monitor Clinically Problem Text: On Supplemental B12 and Iron. Plan/VTE VTE Prophylaxis Ordered?: Yes (TEDs and SCDs) VS, I&O, 24H, Fishbone Vital Signs/I&O Vital Signs Date Time Temp Pulse Resp B/P (MAP) Pulse Ox O2 Delivery O2 Flow Rate FiO2 11/13/16 11:13 18 11/13/16 08:30 Room Air 11/13/16 06:00 98.3 71 142/66 (91) 98 2.0 I&O- Last 24 Hours up to 6 AM 11/14/16 05:59 Intake Total 480 ml Output Total 300 ml Balance 180 ml Laboratory Data 24H LABS Laboratory Tests 2 11/13/16 05:59: Immature Granulocyte % (Auto) , Nucleated Red Blood Cells % (auto) 0.0, Neutrophils 90H, Lymphocytes (Manual) 8L, Monocytes (Manual) 2, Platelet Estimate INCREASED, Anisocytosis 1+, Anion Gap 10, Glomerular Filtration Rate > 60.0, Blood Urea Nitrogen 24H, Creatinine 0.69, Sodium Level 142, Potassium Level 4.4, Chloride Level 107, Carbon Dioxide Level 25, Calcium Level 10.2, Aspartate Amino Transf (AST/SGOT) 7L, Alanine Aminotransferase (ALT/SGPT) 19, Alkaline Phosphatase 53, Total Bilirubin 0.3, Total Protein 7.6, Albumin 3.7, Albumin/Globulin Ratio 0.95L CBC/BMP Laboratory Tests 11/13/16 05:59 Red Blood Count 4.75, Mean Corpuscular Volume 82.5, Mean Corpuscular Hemoglobin 26.3 L, Mean Corpuscular Hemoglobin Concent 31.9 L, Red Cell Distribution Width 14.8 H, Calcium Level 10.2, Aspartate Amino Transf (AST/SGOT) 7 L, Alanine Aminotransferase (ALT/SGPT) 19, Alkaline Phosphatase 53, Total Bilirubin 0.3, Total Protein 7.6, Albumin 3.7 Raciel Peck Nov 13, 2016 12:35 Rodrigo Gregorio MD Nov 13, 2016 14:23
[2016-11-13 12:54] LABS: INR 1.05
[2016-11-13 14:00] VITALS: BP 133/63
[2016-11-13] MEDS: ROSUVASTATIN 10 MG TAB (CRESTOR) PO SCH (20:46)
[2016-11-13 22:00] VITALS: BP 129/64
[2016-11-13] MEDS: NS 1,000 ML IV SCH (23:52)
[2016-11-14 06:00] VITALS: BP 148/76
[2016-11-14 06:12] LABS: MEAN CORPUSCULAR VOLUME 84.3 fl (80.0-96.0); PLATELET COUNT, AUTOMATED 358 10^3/uL (150-450); RED CELL DISTRIBUTION WIDTH 14.9 % (11.5-14.5); WHITE BLOOD COUNT 13.5 10^3/uL (4.0-10.0)
[2016-11-14 06:13] LABS: ADD MANUAL DIFFER YES; DIFF SLIDE NUMBER 30
[2016-11-14 06:49] LABS: BANDS 1 % (< 11)
[2016-11-14 06:50] LABS: ALBUMIN 3.6 GM/DL (3.2-5.2); ALBUMIN/GLOBULIN RATIO 0.97 (1.00-1.93); ALKALINE PHOSPHATASE 48 U/L (45-117); ALT/SGPT 23 U/L (12-78); ANION GAP 9 MEQ/L (8-16); AST/SGOT 11 U/L (15-37); BILIRUBIN,TOTAL 0.2 MG/DL (0.2-1.0); BLOOD UREA NITROGEN 30 MG/DL (7-18); CALCIUM LEVEL 9.3 MG/DL (8.8-10.2); CARBON DIOXIDE LEVEL 24 MEQ/L (21-32); CHLORIDE LEVEL 107 MEQ/L (98-107); CREATININE FOR GFR 0.65 MG/DL (0.55-1.02); GLOMERULAR FILTRATION RATE > 60.0 (>39); GLUCOSE, FASTING 139 MG/DL (83-110); POTASSIUM SERUM 4.4 MEQ/L (3.5-5.1); SODIUM LEVEL 140 MEQ/L (136-145); TOTAL PROTEIN 7.3 GM/DL (6.4-8.2)
[2016-11-14] MEDS: ADVAIR HFA 115/21MCG INHALER INH SCH ×2 (07:13→20:02)
[2016-11-14] MEDS: LORATADINE 10 MG TAB PO SCH (07:30)
[2016-11-14] MEDS: FERROUS GLUCONATE 324 MG TAB PO SCH (07:30)
[2016-11-14] MEDS: CYANOCOBALAMIN 500 MCG TAB PO SCH (07:31)
[2016-11-14] MEDS: levETIRAcetam 250MG TABLET (KEPPRA) PO SCH ×2 (07:31→20:44)
[2016-11-14] MEDS: CALCIUM/VITAMIN D 500 MG TAB PO SCH ×2 (07:31→20:50)
[2016-11-14] MEDS ORDERED: LIDOCAINE 2% MDV 20 ML VIAL As Ordered ONE (07:32)
[2016-11-14] MEDS: PANTOPRAZOLE 40MG TAB (PROTONIX) PO SCH (07:32)
[2016-11-14] MEDS: MIRALAX *UNIT DOSE* 17GM PACKET PO SCH (07:32)
[2016-11-14] MEDS ORDERED: THROMBIN SOLN 20,000 UNITS KIT As Ordered ONE (07:32)
[2016-11-14] MEDS: IRBESARTAN 150 MG TAB PO SCH ×2 (07:33→20:43)
[2016-11-14] MEDS ORDERED: BACITRACIN OINT 30GM As Ordered ONE (07:33)
[2016-11-14] MEDS ORDERED: BACITRACIN PWD 50,000 UNITS VIAL As Ordered ONE (07:33)
[2016-11-14] MEDS: BISOPROLOL FUMARATE 5 MG TAB PO SCH ×2 (07:33→20:44)
[2016-11-14] MEDS ORDERED: VANCOMYCIN 1000 MG/20 ML VIAL (J3370) As Ordered ONE ×2 (09:01→09:02)
--- NOTE | 2016-11-14 14:05 | REP ---
CT HEAD WITHOUT CONTRAST: HISTORY: Rule out bleed. COMPARISON: 11/11/2016. A corey hole is present in the left parietal bone. Small collections of air and a small amount of hemorrhage are present in the left parietal lobe. Surrounding edema is present. There is mass effect with partial effacement of the body, atrium, and occipital horn of the left lateral ventricle with very minimal midline shift to the right. There is no hydrocephalus. A small 2 mm acute subdural hematoma is present overlying the left parietal and temporal lobes. The visualized sinuses are clear. IMPRESSION: 1. There are small collections of air and a small amount of hemorrhage in the right parietal lobe. There is surrounding vasogenic edema with mass effect with very minimal midline shift to the right. 2. Small 2 mm acute left temporoparietal convexity subdural hematoma. Signed by Elias Ruelas MD 11/14/2016 02:14 P
[2016-11-14] MEDS ORDERED: ONDANSETRON 4MG/2ML VIAL (J2405) IV PRN (14:15)
[2016-11-14] MEDS ORDERED: PERCOCET 5MG/325MG TAB PO PRN (14:15)
[2016-11-14] MEDS ORDERED: METOCLOPRAMIDE INJ 10MG/2ML VIAL (J2765) IV PRN (14:15)
[2016-11-14] MEDS ORDERED: fentaNYL 100 MCG/2 ML INJECTION (J3010) IV PRN (14:15)
[2016-11-14] MEDS ORDERED: LR 1,000 ML IV SCH (14:15)
[2016-11-14] MEDS ORDERED: GLYCOPYRROLATE INJ 0.2 MG/ML 2 ML VIAL IV PRN (14:30)
[2016-11-14] MEDS ORDERED: GLYCOPYRROLATE INJ 0.2 MG/ML 2 ML VIAL ONE (14:47)
[2016-11-14 15:00] VITALS: BP 131/70
[2016-11-14] MEDS: NS 1,000 ML IV SCH ×2 (15:30→20:42)
--- NOTE | 2016-11-14 15:40 | ROOPDOC ---
[facility] Report Of Operation Report of Operation DATE OF SURGERY: 11/14/2016 SURGEON: Dr. Jefe Andres CLERK RATING: None PREOPERATIVE DIAGNOSIS: Left temporo-occipital intraaxial brain lesion POSTOPERATIVE DIAGNOSIS: Same PROCEDURE PERFORMED: 1. Left parietal corey hole placement 2. Stereotactic brain tumor biopsy ANESTHESIA: GETA. ESTIMATED BLOOD LOSS: 100cc. FINDINGS : Frozen section was consistent with necrosis. DRAINS: None COMPLICATIONS: None. DISPOSITION: Stable to the PACU. INDICATIONS FOR THE PROCEDURE HISTORY: Mrs. Santos is a 76 y/o F who presents with signs, symptoms and radiographic evidence of a Left intraaxial contrast enhancing temporo-occipital lobe mass. The patient presents for craniotomy for biopsy of her lesion. DIAGNOSTIC STUDY: MRI of brain showed contrast ring-enhanced nodular-mass lesion with perilesional edema and local mass effect. SURGICAL RISKS: The patient was well apprised of all objectives, benefits, risks and potential complications of the procedure, including but not limited to: worsening of current status, the possible need for further procedures, the risk of infection , headaches, CSF leak, possible spinal nerve injury resulting in paralysis, infection, injury to major vessels causing hemorrhage, stroke, loss of language function, coma and even . No assurance was given whether symptoms would improve following the procedure. The surgery is technically difficult procedure and despite the significant discomfort for the patient and the best effort of the physician, the surgery may be unsuccessful or may need to be aborted. Informed consent was obtained and secured in the chart after patient voiced understanding of these risks and decided to proceed with the operation. DESCRIPTION OF THE PROCEDURE The patient was transferred to the operating room. She was given preoperative prophylactic IV antibiotics. ANESTHESIA: The patient was sedated and intubated without difficulty by the anesthesia service. Eyes were taped shut after ointment was applied to prevent corneal abrasion. A Rupal Hugger was placed over the upper body to maintain control of core body temperature. A Robles catheter was inserted. POSITIONING: A Dixon head clamp was applied. The patient was placed in the supine position, rotated to the right with help of jelly bolster along left side of body and all pressure points were well padded. The hair was clipped in the area where the incision was planned and marked. Pre-prepping was done with alcohol. Stereotactic MRI was done on prior to surgery and the images were transferred to the neuronavigational system. Next, three-dimensional images were reconstructed. The patient underwent co-registration of the preoperative stereotactic MRI with her surface landmarks. Accuracy was within 3 mm. Superior sagittal sinus was identified as midline and mapped out. The planned craniotomy was outlined. OPERATIVE TECHNIQUE: The patient was prepped and draped in the standard sterile fashion. Local anesthetic was infiltrated along the line of the planned skin incision. A Left straight incision was performed with a # 15 scalpel blade to the level of the periosteum. The scalp was reflected sidewise and held in place utilizing cerebellar retractor. At this point, the neuronavigation probe was utilized to outline the trajectory towards the lesion to be biopsied. Using a high speed pneumatic 14 mm drill, corey hole was placed with a rolling up machine operator bit in the parietal-temporal region. A #3 [place] was utilized to detach the dura from the bone. Hemostasis was achieved utilizing a combination of bipolar electrocautery, monopolar electrocautery and absorbable gelatin compressed sponge Gelfoam and Surgicel. The wound was irrigated until clear. The dura was coagulated with the bipolar electrocautery. The frameless stereotactic biopsy guide was inserted and attached to the skull with three screws. The guide component was then fastened to this base with plastic hand screw. Again, with the neuronavigation probe, the desired biopsy depth was determined. The lesion was visualized on three-dimensional imaging. The depth of the lesion from surface of the skull was calculated to be 93 mm in depth. A disposable biopsy needle was marker at 95 mm and inserted to target with the cutting window in the closed position. 2 core biopsies were obtained and sent to pathology. Frozen section report came non-diagnostic. Another trajectory and depth were recalculated and subsequently more core biopsies were obtained. The biopsy needle gently removed. The wound was again irrigated with sterile solution until clear. The corey hole was packed with gelfoam and bone dust. The galea was closed with inverted interrupted stitches utilizing 3O polyglactin synthetic absorbable sutures. Scalp has been closed by metal vickie. Bacitracin ointment has been applied to the wound and sterile dressing has been placed over closed wound. All sponge counts, needle counts and instrument counts were correct at the end of the case times two. The patient tolerated the procedure well, without any complications and was transferred in stable condition to the recovery room. JEFE ANDRES MD Nov 14, 2016 15:40
[2016-11-14 16:00] VITALS: BP 159/68
[2016-11-14 18:00] VITALS: BP 136/65
[2016-11-14 20:15] VITALS: BP 164/70
[2016-11-14] MEDS: ROSUVASTATIN 10 MG TAB (CRESTOR) PO SCH (20:43)
[2016-11-14] MEDS: VANCOMYCIN HCL 1,000 MG, VIAL MATE ADAPTER 1 EACH in D5W 250 ML IV SCH (20:45)
[2016-11-14] MEDS: NYSTATIN 100,000 UNITS/GM TOPICAL PWD 15 GM TOP SCH (20:45)
[2016-11-14] MEDS: ACETAMINOPHEN 500 MG TAB PO PRN (20:46)
[2016-11-14] MEDS: CALCIUM CARBONATE 500 MG CHEW U/D PO PRN (20:47)
[2016-11-14 22:48] VITALS: BP 131/59
[2016-11-15] VITALS (8 sets, daily range): BP systolic 115–165; BP diastolic 58–74
[2016-11-15] MEDS: ACETAMINOPH W/CODEINE #3 TAB UD PO PRN (00:54)
[2016-11-15] MEDS ORDERED: traMADol 50 MG TAB PO ONE (03:15)
--- NOTE | 2016-11-15 04:40 | REPUSA ---
CLINICAL HISTORY: Postop. TECHNIQUE: Multiple axial brain CT scan sections were obtained from base to vertex without contrast a dministration. COMMENTS: Comparison is made to the prior exam performed on 11/14/2016. Unchanged left temporal/parietal edema w ith associated acute/subacute hemorrhagic products. Unchanged mild effacement of the adjacent sulci. Unchanged 4.2 mm midline shift to the right side. Unchanged minimal acute hemorrhagic products in the extra-axial CSF space. The study shows normal configuration of sella turcica. No hydrocephalus is present. No abnormal calci fications are noted. The sinuses and mastoid air cells are patent. IMPRESSION: Unchanged exam. Thank you for your kind referral of this patient.
[2016-11-15] MEDS: ADVAIR HFA 115/21MCG INHALER INH SCH ×2 (07:43→19:30)
[2016-11-15] MEDS: CALCIUM/VITAMIN D 500 MG TAB PO SCH ×2 (08:23→20:16)
[2016-11-15] MEDS: levETIRAcetam 250MG TABLET (KEPPRA) PO SCH ×2 (08:23→20:10)
[2016-11-15] MEDS: MIRALAX *UNIT DOSE* 17GM PACKET PO SCH (08:23)
[2016-11-15] MEDS: LORATADINE 10 MG TAB PO SCH (08:23)
[2016-11-15] MEDS: FERROUS GLUCONATE 324 MG TAB PO SCH (08:23)
[2016-11-15] MEDS: NYSTATIN 100,000 UNITS/GM TOPICAL PWD 15 GM TOP SCH ×2 (08:23→20:15)
[2016-11-15] MEDS: CYANOCOBALAMIN 500 MCG TAB PO SCH (08:23)
[2016-11-15] MEDS: BISOPROLOL FUMARATE 5 MG TAB PO SCH ×2 (08:24→20:10)
[2016-11-15] MEDS: IRBESARTAN 150 MG TAB PO SCH ×2 (08:24→20:11)
[2016-11-15] MEDS: PANTOPRAZOLE 40MG TAB (PROTONIX) PO SCH (08:24)
[2016-11-15] MEDS: VANCOMYCIN HCL 1,000 MG, VIAL MATE ADAPTER 1 EACH in D5W 250 ML IV SCH ×2 (08:25→20:12)
--- NOTE | 2016-11-15 11:12 | IPNPDOC ---
Subjective Date Seen The patient was seen on 11/15/16. Subjective Chief Complaint/HPI The patient is a 76-year-old female admitted with a reason for visit of Brain Mass. Events since last encounter Ms. Santos reports she is feeling okay today. She still has some difficulties with her memory, but her family is at bedside to help her. I had an extended conversation with her neurosurgeon, Dr. Andres, regarding his plans for her. From his perspective he does not need hospital care anymore. She will need this staple out in 1 week; he'll not be in town and unavailable to do this so he is requesting we do this next Thursday. He would like her to be on Decadron for one month. He believes that she should have a repeat MRI with contrast in 1 month to assess the growth trajectory of these masses. He believes she should be re-seen by neurosurgery in approximately a month, after the repeat MRI. He said this could be with him, with Dr. Jordan in town, or [id number] [place]. It will be up to the patient and her primary care provider where this follow-up should occur. General: Denies: Normal Appetite (decreased appetite, she reports she only ate several bites of her breakfast) Constitutional: Denies: Fever, Weakness Pulmonary: Denies: Cough Cardiovascular: Denies: Chest Pain, Palpitations Neurological: Reports: Numbness (in the lateral 3 fingers of her right hand. She reports a history of carpal tunnel syndrome and feels like this is the same. It has been stable for some time.) Psych: Reports: Memory Issues Objective Physical Examination General Exam: Positive: Alert, No Acute Distress, Other (family at bedside and assisting her with memory) Eye Exam: Positive: EOMI, Negative: Sclera icteric ENT Exam: Negative: Atraumatic (there is a staple over a well healing incision on her right frontal scalp) Neck Exam: Positive: Supple, Negative: JVD Chest Exam: Positive: Clear to auscultation Heart Exam: Positive: Rate Normal, Regular Rhythm Abdomen Exam: Positive: Normal bowel sounds, Soft, Negative: Tenderness Neuro Exam: Positive: Normal Speech, Cranial Nerves 3-12 NL, Negative: Strength at 5/5 X4 ext (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 She describes numbness in her R fingers 3-5. Tinel's test over the R carpal tunnel is positive. Dorsifelexion and plantarflexion are 5/5 bilaterally. ) Psych Exam: Positive: Mood NL, Negative: Memory Intact Assessment /Plan Problems (1) Brain mass Problem Specific Plan: Consult Specialist, Monitor Clinically, Repeat Labs Problem Text: I spoke with Dr. Andres today. He confirmed that the biopsy done yesterday was nondiagnostic. She will need a repeat MRI of the brain with contrast in about one month. She'll need another surgery neurosurgical evaluation after that test is done. Until then she should continue on Decadron ( she will need GI prophylaxis because of this). From his perspective she may be discharged home as soon as she is cleared by physical and occupational therapy. I spoke with Dr. Jordan, who was covering Dr. Andres today, to ask him about when to start the ASA and Plavix. He reviewed the case and asked why the patient was being discharged before a tissue dx was established. I related the above to him. The patient and family had already stated to me that they would be looking for a second opinion in town, not because they didn't trust Dr. Andres, but because they wanted another perspective on what is going on with her. I asked them if they wish to meet Dr. Jordan today rather than in a month and they were excited to do so. I have officially consulted Dr. Jordan and will await his recommendations; including on when to restart the Plavix and ASA. 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 There is an area of increased signal intensity in the medial left parietal lobe with associated mass effect. This is suspicious for a low grade glioma. Small vessel ischemic disease. Mild volume loss. CT Chest and Abd/pel were obtained to search for primary. CT Chest: 14 mm nodule in the anterior segment of the right lower lobe, not present on the comparison study. CT Abd/pel: No mass, adenopathy, or ascites. Chronic thickening of the terminal ileum, unchanged. Fat-containing ventral hernia, unchanged. Small hiatal hernia , unchanged. No lytic, blastic or destructive skeletal changes. Degenerative disc disease in the lumbar spine. Bilateral hip osteoarthritis, worse on the left. (2) Lung nodule Discussed With: Patient, Family with Pt Consent Problem Text: The patient family are, reasonably, asking whether this is related to her brain mass. She has no personal history of smoking but does describe a significant history of secondhand smoke throughout her life. Unfortunately I'm not able to answered their questions because the nondiagnostic biopsy. I will leave this for outpatient evaluation and management if deemed appropriate by her primary care provider. ------ CT Chest: 14 mm nodule in the anterior segment of the right lower lobe, not present on the comparison study. (3) Brain compression Status: Resolved Problem Specific Plan: Monitor Clinically Problem Text: This should have resolved to some degree with the corey hole and biopsy done yesterday. There may still be some mass effect because of the remaining masses in her brain, hopefully Decadron will assist with this as well. (4) HTN (hypertension) Status: Chronic Problem Specific Plan: Monitor Clinically Problem Text: On Avapro, Zebeta, Norvasc with hold parameters. (5) CAD (coronary artery disease) Status: Chronic Problem Specific Plan: Monitor Clinically Problem Text: Out-patient aspirin and plavix have been held in anticipation of biopsy. (6) COPD (chronic obstructive pulmonary disease) Status: Chronic Problem Specific Plan: Monitor Clinically Problem Text: Stable (7) Hyperlipidemia Status: Chronic Problem Specific Plan: Monitor Clinically Problem Text: On Crestor. (8) Anemia Status: Chronic Problem Specific Plan: Monitor Clinically Problem Text: On Supplemental B12 and Iron. Plan/VTE VTE Prophylaxis Ordered?: Yes (TEDs and SCDs) VTE Exclusion Pharmacological: Bleeding Risk (intracranial procedure) Plan Anticipated Discharge: Home With Services (based on therapy's recommendation) VS, I&O, 24H, Fishbone Vital Signs/I&O Vital Signs Date Time Temp Pulse Resp B/P (MAP) Pulse Ox O2 Delivery O2 Flow Rate FiO2 11/15/16 08:24 52 11/15/16 08:24 161/67 11/15/16 06:05 98.5 20 98 Nasal Cannula 2.0 Laboratory Data 24H LABS Laboratory Tests 2 11/14/16 13:40: Bedside Glucose (Misc Panel) 136H Ge Mendoza MD Nov 15, 2016 11:12
[2016-11-15] MEDS: traMADol 50 MG TAB PO PRN ×2 (12:44→20:10)
[2016-11-15] MEDS: ROSUVASTATIN 10 MG TAB (CRESTOR) PO SCH (20:11)
--- NOTE | 2016-11-15 21:24 | CR ---
DATE OF CONSULTATION: 11/15/2016 REASON FOR CONSULTATION: I saw this patient in the intensive care unit (ICU) at the request of Dr. Ge Mendoza. She is a very pleasant 76-year-old right-handed lady who is sitting by her bedside. She claims she has some headaches and difficulty in speech, though is getting better since she has been in the hospital. Available medical data in the chart reviewed. Pertinent neurological studies were also reviewed. The patient was recently found to have a large temporal lobe mass and underwent stereotactic biopsy; however, the results were inconclusive. The final pathology report is not back yet. The patient's family stated that she developed rather recent onset of mild confusion, unsteadiness, headaches, and difficulty with speech, though since the patient was on steroids, they claim these deficits are getting better though she still is unable to communicate adequately and freely on most occasions. The patient is awake and alert. Current medications were as noted in the emergency room (ER) chart. MEDICATIONS: Tylenol, codeine, Norvasc, ascorbic acid, aspirin, Cipro, calcium/vitamin D supplement, vitamin D, was on Plavix before admission, Benadryl, Colace, ferrous gluconate, Flonase, Avapro, Claritin, melatonin, multivitamin, omega 3, Protonix , MiraLAX, Crestor, Advair, and vitamin D. I have been told her aspirin and Plavix have been held from the recent surgery. ALLERGIES: She reports multiple allergies including ALCOHOL, CALCIUM CHANNEL BLOCKERS, CLAVULANIC ACID, MEPERIDINE, PENICILLIN AND PENICILLIN CROSS REACTORS, QUINOLONES, and SULFA DRUGS, amongst others. REVIEW OF SYSTEMS: As noted, including hypertension, hypertensive heart disease, coronary artery disease, status post coronary artery bypass graft (CABG), chronic obstructive pulmonary disease (COPD), hyperlipidemia, anemia, and has had multiple surgeries including appendectomy and cholecystectomy, cataracts, and most recently stereotactic biopsy of the left temporal lobe mass. PHYSICAL EXAMINATION: She is found to be awake and alert, oriented times three. She has significant expressive dysphasia. It appears she is oriented times three barring deficits from her dysphasia. Pupils are nearly equal and reacting. Extraocular movements are full, though coarse. Romberg's is positive despite a walker and two assists. She follows one-step commands with mild confusion and mild right hemiparesis. There is mild preponderance of deep tendon reflexes. Plantars are silent or equivocal, no clonus or obvious sensory level is seen, though has findings suggestive of peripheral neuropathy with absent ankle jerks and patchy hypoalgesia distally. Pedal pulses are palpable. Cranial nerves appear to be intact. Cerebellar examination is nearly within normal limits except for occasional dysmetria, dysrhythmia and visual overshooting, with a degree of truncal ataxia. Basal ganglia functions are adequate though there is a degree of bradykinesia, which could be related to her medications. She shows evidence of cervical spondylosis with mild disesthesia along C2-C3, as well as early C6 deficits. There is hip algesia along both median and ulnar nerves as well. Also shows evidence of lumbar spondylosis with L5-S1 sensory deficits. 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 PLAN: I did reveal the multiple CT scans and the MRI. The MRI does show a large left temporal lobe mass, which probably appears to be metastatic lesion, certainly high-grade glioma cannot be readily excluded. It has extensive vasogenic edema with mass effect. There is another small lesion in the left medial parietal lobe which does not enhance much, and this could be either a low-grade glioma or evolving metastatic lesion. The study also shows diffuse white matter microvascular disease. Apparently the verbal report of the frozen section was inconclusive, but I would wait for the permanent pathology report before making further recommendations regarding the management of this mass. Also would recommend evaluation by a thoracic surgeon to see if she will be a candidate for biopsy of the new lung mass. Unless the lung lesion is radiosensitive sensitive or chemo sensitive, she may benefit from debulking or excision of the large temporal mass. The patient and family, however, are aware of the grave prognosis and all the risks involved with more aggressive resection of the left temporal mass. Also would recommend seizure precautions and no unsupervised activity. I will be happy to make further recommendations once the final pathology from the brain biopsy is available. Case was discussed with Dr. Mendoza in the ICU. Please call me if you have any questions. ANNITA
[2016-11-16 04:37] LABS: MEAN CORPUSCULAR HEMOGLOBIN 26.6 pg (27.0-33.0); MEAN CORPUSCULAR HGB CONC 31.9 g/dl (32.0-36.5); MEAN CORPUSCULAR VOLUME 83.4 fl (80.0-96.0); RED CELL DISTRIBUTION WIDTH 14.6 % (11.5-14.5); WHITE BLOOD COUNT 13.1 10^3/uL (4.0-10.0)
[2016-11-16 05:11] LABS: ALBUMIN 3.2 GM/DL (3.2-5.2); ALKALINE PHOSPHATASE 54 U/L (45-117); ALT/SGPT 17 U/L (12-78); ANION GAP 7 MEQ/L (8-16); AST/SGOT 9 U/L (15-37); BILIRUBIN,TOTAL 0.4 MG/DL (0.2-1.0); BLOOD UREA NITROGEN 17 MG/DL (7-18); CALCIUM LEVEL 9.6 MG/DL (8.8-10.2); CARBON DIOXIDE LEVEL 29 MEQ/L (21-32); CHLORIDE LEVEL 103 MEQ/L (98-107); CREATININE FOR GFR 0.53 MG/DL (0.55-1.02); GLOMERULAR FILTRATION RATE > 60.0 (>39); GLUCOSE, FASTING 140 MG/DL (83-110); MAGNESIUM LEVEL 1.9 MG/DL (1.8-2.4); POTASSIUM SERUM 4.3 MEQ/L (3.5-5.1); SODIUM LEVEL 139 MEQ/L (136-145); TOTAL PROTEIN 6.4 GM/DL (6.4-8.2)
[2016-11-16] MEDS: ADVAIR HFA 115/21MCG INHALER INH SCH ×2 (07:21→19:38)
[2016-11-16 08:00] VITALS: BP 167/71
[2016-11-16] MEDS: BISOPROLOL FUMARATE 5 MG TAB PO SCH ×2 (09:00→20:46)
[2016-11-16] MEDS: FERROUS GLUCONATE 324 MG TAB PO SCH (09:08)
[2016-11-16] MEDS: PANTOPRAZOLE 40MG TAB (PROTONIX) PO SCH (09:08)
[2016-11-16] MEDS: MIRALAX *UNIT DOSE* 17GM PACKET PO SCH (09:08)
[2016-11-16] MEDS: CYANOCOBALAMIN 500 MCG TAB PO SCH (09:08)
[2016-11-16] MEDS: levETIRAcetam 250MG TABLET (KEPPRA) PO SCH ×2 (09:08→20:45)
[2016-11-16] MEDS: LORATADINE 10 MG TAB PO SCH (09:09)
[2016-11-16] MEDS: IRBESARTAN 150 MG TAB PO SCH ×2 (09:09→20:44)
[2016-11-16] MEDS: CALCIUM/VITAMIN D 500 MG TAB PO SCH ×2 (09:09→20:46)
[2016-11-16] MEDS: NYSTATIN 100,000 UNITS/GM TOPICAL PWD 15 GM TOP SCH ×2 (09:11→20:47)
[2016-11-16 12:00] VITALS: BP 115/55
--- NOTE | 2016-11-16 12:08 | IPNPDOC ---
Subjective Date Seen The patient was seen on 11/16/16. Subjective Chief Complaint/HPI The patient is a 76-year-old female admitted with a reason for visit of Brain Mass. Events since last encounter I woke her from a nap this morning when I saw her this morning. Consequently, she had more difficulty with word finding and pauses in her speech than she did yesterday. I suspect this has more to do with her tiredness and lower functioning reticular activating system than a clinical decline, but it should be followed. Dr. Jordan would like to wait until the pathology results are officially back rather than going on the frozen section being nondiagnostic. Additionally his opinion is we should work up the lung mass while she is in the hospital now, because he has a strong suspicion that the lesion in her brain is metastatic. Constitutional: Reports: Weakness, Fatigue ENT: Reports: Head Aches (related to her surgical sites) Pulmonary: Denies: Cough Cardiovascular: Denies: Chest Pain, Palpitations Objective Physical Examination General Exam: Positive: No Acute Distress, Other (was sleeping alone in her room when I entered, but is easily arousable) Eye Exam: Positive: EOMI, Negative: Sclera icteric ENT Exam: Negative: Atraumatic (there is a staple over a well healing incision on her right frontal scalp, and a clean bandage over the left occipital scalp) Neck Exam: Negative: Lymphadenopathy Chest Exam: Positive: Clear to auscultation Heart Exam: Positive: Rate Normal, Regular Rhythm Abdomen Exam: Positive: Normal bowel sounds, Soft, Negative: Tenderness Neuro Exam: Negative: Normal Speech (she has more difficulty with word finding and her speech is more broken, not fluent today.) Psych Exam: Negative: Memory Intact Assessment /Plan Problems (1) Brain mass Problem Specific Plan: Consult Specialist, Monitor Clinically, Repeat Labs Problem Text: Dr. Jordan has been consulted for a second opinion. Dr. Andres is out of town for a week. Dr. Jordan would like to wait until the official read of the brain biopsy is back before he makes a final decision that it's nondiagnostic; he recalls incidences where the frozen section has not been diagnostic but they were able to get a little more out of the fully fixed section to make a diagnosis. 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 There is an area of increased signal intensity in the medial left parietal lobe with associated mass effect. This is suspicious for a low grade glioma. Small vessel ischemic disease. Mild volume loss. CT Chest and Abd/pel were obtained to search for primary. CT Chest: 14 mm nodule in the anterior segment of the right lower lobe, not present on the comparison study. CT Abd/pel: No mass, adenopathy, or ascites. Chronic thickening of the terminal ileum, unchanged. Fat-containing ventral hernia, unchanged. Small hiatal hernia , unchanged. No lytic, blastic or destructive skeletal changes. Degenerative disc disease in the lumbar spine. Bilateral hip osteoarthritis, worse on the left. (2) Lung nodule Discussed With: Patient, Family with Pt Consent Problem Text: Dr. Jordan is requesting that we strongly consider working up this lung nodule while she is in the hospital. He has a strong clinical suspicion that the brain lesion is metastatic. Additionally if she has a primary lung cancer it may change his recommendation to do an excisional bx of the brain lesion which almost assuredly leave her with some weakness and speech deficits. Tomorrow we should contact IR and/or Pulm to see whether CT guided bx or navigational broncoscopy with bx is the best way to get a sample of this lesion. ------ CT Chest: 14 mm nodule in the anterior segment of the right lower lobe, not present on the comparison study. (3) Brain compression Status: Acute Problem Specific Plan: Monitor Clinically Problem Text: In discussion with Dr. Jordan he is concerned that the slight neurological declines are some post-op edema. He has ordered a repeat CT to evaluate this. Will monitor clinically and leave the management to him. (4) HTN (hypertension) Status: Chronic Problem Specific Plan: Monitor Clinically Problem Text: On Avapro, Zebeta, Norvasc with hold parameters. Pressures are a little higher today, but I will wait until after the CT to make any changes if needed. This may represent autoregulation in a swollen brain. (5) CAD (coronary artery disease) Status: Chronic Problem Specific Plan: Monitor Clinically Problem Text: Out-patient aspirin and plavix have been held and remain so in anticipation of a lung biopsy. (6) COPD (chronic obstructive pulmonary disease) Status: Chronic Problem Specific Plan: Monitor Clinically Problem Text: Stable (7) Hyperlipidemia Status: Chronic Problem Specific Plan: Monitor Clinically Problem Text: On Crestor. (8) Anemia Status: Chronic Problem Specific Plan: Monitor Clinically Problem Text: On Supplemental B12 and Iron. Plan/VTE VTE Prophylaxis Ordered?: Yes (TEDs and SCDs) VTE Exclusion Pharmacological: Bleeding Risk (intracranial procedure) Plan Anticipated Discharge: Home With Services (based on therapy's recommendation) VS, I&O, 24H, Fishbone Vital Signs/I&O Vital Signs Date Time Temp Pulse Resp B/P (MAP) Pulse Ox O2 Delivery O2 Flow Rate FiO2 11/16/16 09:10 54 167/71 11/16/16 08:00 Nasal Cannula 2.0 11/16/16 08:00 98.6 18 97 Laboratory Data 24H LABS Laboratory Tests 2 11/15/16 14:00: Urine Random Osmolality 257L 11/15/16 14:13: Osmolality 293 11/16/16 04:20: Anion Gap 7L, Glomerular Filtration Rate > 60.0, Blood Urea Nitrogen 17, Creatinine 0.53L, Sodium Level 139, Potassium Level 4.3, Chloride Level 103, Carbon Dioxide Level 29, Calcium Level 9.6, Aspartate Amino Transf (AST/SGOT) 9L , Alanine Aminotransferase (ALT/SGPT) 17, Alkaline Phosphatase 54, Total Bilirubin 0.4#, Total Protein 6.4, Albumin 3.2, Magnesium Level 1.9, Albumin/ Globulin Ratio 1.00, Prealbumin 29.3 CBC/BMP Laboratory Tests 11/16/16 04:20 Red Blood Count 4.58, Mean Corpuscular Volume 83.4, Mean Corpuscular Hemoglobin 26.6 L, Mean Corpuscular Hemoglobin Concent 31.9 L, Red Cell Distribution Width 14.6 H, Calcium Level 9.6, Aspartate Amino Transf (AST/SGOT) 9 L, Alanine Aminotransferase (ALT/SGPT) 17, Alkaline Phosphatase 54, Total Bilirubin 0.4 #, Total Protein 6.4, Albumin 3.2 Ge Mendoza MD Nov 16, 2016 12:08
[2016-11-16 12:45] VITALS: BP 129/62
--- NOTE | 2016-11-16 13:57 | REP ---
REASON FOR EXAM: Followup mass and postoperative changes. Multiple priors were reviewed, the latest of which is dated 11/15/2016 at 3:37 a.m. There are postoperative changes status quo. Low density is again seen in the posterior temporoparietal lobe region. Once again, this is causing ipsilateral ventricular effacement status quo. Air densities seen within the low density on the latest prior have nearly completely resolved and the degree of increased density consistent with hemorrhage in the low density region has significantly decreased. There are no new areas of hemorrhage and there is no new shift in the midline structures. There are no additional changes. IMPRESSION: Postoperative changes as described above. Signed by Mio Rowe DO 11/16/2016 02:10 P
[2016-11-16 16:00] VITALS: BP 122/60
[2016-11-16 20:00] VITALS: BP 129/61
[2016-11-16] MEDS: ROSUVASTATIN 10 MG TAB (CRESTOR) PO SCH (20:45)
[2016-11-17] VITALS: BP 167/71
[2016-11-17 04:00] VITALS: BP 152/69
[2016-11-17] MEDS: ADVAIR HFA 115/21MCG INHALER INH SCH ×2 (07:34→19:27)
[2016-11-17 08:00] VITALS: BP 127/62
[2016-11-17] MEDS: MIRALAX *UNIT DOSE* 17GM PACKET PO SCH (08:23)
[2016-11-17] MEDS: FERROUS GLUCONATE 324 MG TAB PO SCH (08:23)
[2016-11-17] MEDS: LORATADINE 10 MG TAB PO SCH (08:23)
[2016-11-17] MEDS: CALCIUM/VITAMIN D 500 MG TAB PO SCH ×2 (08:24→21:16)
[2016-11-17] MEDS: levETIRAcetam 250MG TABLET (KEPPRA) PO SCH ×2 (08:24→21:14)
[2016-11-17] MEDS: CYANOCOBALAMIN 500 MCG TAB PO SCH (08:24)
[2016-11-17] MEDS: PANTOPRAZOLE 40MG TAB (PROTONIX) PO SCH (08:24)
[2016-11-17] MEDS: IRBESARTAN 150 MG TAB PO SCH ×2 (08:25→21:15)
[2016-11-17] MEDS: BISOPROLOL FUMARATE 5 MG TAB PO SCH ×2 (08:25→21:16)
[2016-11-17] MEDS: NYSTATIN 100,000 UNITS/GM TOPICAL PWD 15 GM TOP SCH ×2 (08:26→21:14)
--- NOTE | 2016-11-17 11:22 | IPNPDOC ---
Subjective Date Seen The patient was seen on 11/17/16. Subjective Chief Complaint/HPI The patient is a 76-year-old female admitted with a reason for visit of Brain Mass. Events since last encounter Speech continues to improve. Able to type with family today. Denies c/o. Constitutional: Denies: Chills, Fever, Night Sweats ENT: Denies: Head Aches, Ear Pain, Dysphagia Pulmonary: Denies: Dyspnea, Cough Gastrointestinal: Denies: Nausea, Vomiting, Abdominal Pain, Diarrhea, Constipation Genitourinary: Denies: Dysuria, Frequency, Incontinence, Retention Psych: Reports: Mood Normal, Denies: Depression, Memory Issues Objective Physical Examination General Exam: Positive: No Acute Distress, Other (was sleeping alone in her room when I entered, but is easily arousable) Eye Exam: Positive: EOMI, Negative: Sclera icteric ENT Exam: Negative: Atraumatic (there is a staple over a well healing incision on her right frontal scalp, and a clean bandage over the left occipital scalp) Neck Exam: Negative: Lymphadenopathy Chest Exam: Positive: Clear to auscultation Heart Exam: Positive: Rate Normal, Regular Rhythm Abdomen Exam: Positive: Normal bowel sounds, Soft, Negative: Tenderness Neuro Exam: Negative: Normal Speech (she has more difficulty with word finding ) Psych Exam: Negative: Memory Intact Assessment /Plan Problems (1) Brain mass Problem Specific Plan: Consult Specialist, Monitor Clinically, Repeat Labs Problem Text: 11/17/20137: pathology pending. Neurosurgery following Dr. Jordan has been consulted for a second opinion. Dr. Andres is out of town for a week. Dr. Jordan would like to wait until the official read of the brain biopsy is back before he makes a final decision that it's nondiagnostic; he recalls incidences where the frozen section has not been diagnostic but they were able to get a little more out of the fully fixed section to make a diagnosis. 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 There is an area of increased signal intensity in the medial left parietal lobe with associated mass effect. This is suspicious for a low grade glioma. Small vessel ischemic disease. Mild volume loss. CT Chest and Abd/pel were obtained to search for primary. CT Chest: 14 mm nodule in the anterior segment of the right lower lobe, not present on the comparison study. CT Abd/pel: No mass, adenopathy, or ascites. Chronic thickening of the terminal ileum, unchanged. Fat-containing ventral hernia, unchanged. Small hiatal hernia , unchanged. No lytic, blastic or destructive skeletal changes. Degenerative disc disease in the lumbar spine. Bilateral hip osteoarthritis, worse on the left. (2) Lung nodule Discussed With: Patient, Family with Pt Consent Problem Text: 11/17/2016: Pulmonology, informal consult, advised against bronchoscopy. Recommends interventional to see if can get to nodule. Dr. Jordan is requesting that we strongly consider working up this lung nodule while she is in the hospital. He has a strong clinical suspicion that the brain lesion is metastatic. Additionally if she has a primary lung cancer it may change his recommendation to do an excisional bx of the brain lesion which almost assuredly leave her with some weakness and speech deficits. Tomorrow we should contact IR and/or Pulm to see whether CT guided bx or navigational bronchoscopy with bx is the best way to get a sample of this lesion. ------ CT Chest: 14 mm nodule in the anterior segment of the right lower lobe, not present on the comparison study. (3) Brain compression Status: Acute Problem Specific Plan: Monitor Clinically Problem Text: In discussion with Dr. Jordan he is concerned that the slight neurological declines are some post-op edema. He has ordered a repeat CT to evaluate this. Will monitor clinically and leave the management to him. (4) HTN (hypertension) Status: Chronic Problem Specific Plan: Monitor Clinically Problem Text: On Avapro, Zebeta, Norvasc with hold parameters. Pressures are a little higher today, but I will wait until after the CT to make any changes if needed. This may represent autoregulation in a swollen brain. (5) CAD (coronary artery disease) Status: Chronic Problem Specific Plan: Monitor Clinically Problem Text: Out-patient aspirin and plavix have been held and remain so in anticipation of a lung biopsy. (6) COPD (chronic obstructive pulmonary disease) Status: Chronic Problem Specific Plan: Monitor Clinically Problem Text: Stable (7) Hyperlipidemia Status: Chronic Problem Specific Plan: Monitor Clinically Problem Text: On Crestor. (8) Anemia Status: Chronic Problem Specific Plan: Monitor Clinically Problem Text: On Supplemental B12 and Iron. Plan/VTE VTE Prophylaxis Ordered?: Yes (TEDs and SCDs) VTE Exclusion Pharmacological: Bleeding Risk (intracranial procedure) Plan Anticipated Discharge: Home With Services (based on therapy's recommendation) VS, I&O, 24H, Fishbone Vital Signs/I&O Vital Signs Date Time Temp Pulse Resp B/P (MAP) Pulse Ox O2 Delivery O2 Flow Rate FiO2 11/17/16 08:25 66 127/62 11/17/16 08:00 98.4 96 Nasal Cannula 2.0 11/17/16 04:00 18 I&O- Last 24 Hours up to 6 AM 11/18/16 06:00 Intake Total 120 ml Balance 120 ml Nancy Johns [employer] Nov 17, 2016 11:22
[2016-11-17 11:35] LABS: MEAN CORPUSCULAR HEMOGLOBIN 26.5 pg (27.0-33.0); MEAN CORPUSCULAR VOLUME 82.7 fl (80.0-96.0); PLATELET COUNT, AUTOMATED 463 10^3/uL (150-450); RED CELL DISTRIBUTION WIDTH 14.6 % (11.5-14.5); WHITE BLOOD COUNT 20.4 10^3/uL (4.0-10.0)
[2016-11-17 11:49] LABS: ADD MANUAL DIFFER YES; DIFF SLIDE NUMBER 185
[2016-11-17 12:00] VITALS: BP 92/54
[2016-11-17 12:18] LABS: ALBUMIN 3.6 GM/DL (3.2-5.2); ALBUMIN/GLOBULIN RATIO 1.06 (1.00-1.93); ALKALINE PHOSPHATASE 52 U/L (45-117); ALT/SGPT 19 U/L (12-78); ANION GAP 10 MEQ/L (8-16); AST/SGOT 9 U/L (15-37); BILIRUBIN,TOTAL 0.4 MG/DL (0.2-1.0); BLOOD UREA NITROGEN 23 MG/DL (7-18); CALCIUM LEVEL 9.5 MG/DL (8.8-10.2); CARBON DIOXIDE LEVEL 28 MEQ/L (21-32); CHLORIDE LEVEL 100 MEQ/L (98-107); GLOMERULAR FILTRATION RATE > 60.0 (>39); GLUCOSE, FASTING 108 MG/DL (83-110); POTASSIUM SERUM 4.2 MEQ/L (3.5-5.1); SODIUM LEVEL 138 MEQ/L (136-145)
[2016-11-17 13:30] LABS: ANISOCYTOSIS 1+
[2016-11-17] MEDS ORDERED: ISOVUE-370 76% 100ML VIAL (Q9967) As Ordered ONE (15:45)
[2016-11-17 16:00] VITALS: BP 146/66
--- NOTE | 2016-11-17 17:22 | REP ---
CT HEAD WITHOUT AND WITH CONTRAST: HISTORY: Altered mental status. CONTRAST: Isovue-370, 75 mL. COMPARISON: 11/16/2016. A mass with ring like enhancement is present in the posterior left temporal lobe. Surrounding edema is present. There is mass effect with partial effacement of the posterior body, atrium and occipital horn of the left lateral ventricle. There is no midline shift. The ventricular system and cortical sulci are dilated consistent with mild volume loss. A small 2 mm subdural hematoma is present overlying the left temporal and parietal lobes. A corey hole is present in the left parietal bone. The visualized sinuses are clear. IMPRESSION: There is a 2.4 cm enhancing mass consistent with a high-grade glioma in the posterior left temporal lobe with surrounding edema. There is no midline shift. Signed by Elias Ruelas MD 11/18/2016 08:18 A
[2016-11-17 20:00] VITALS: BP 134/66
[2016-11-17] MEDS: ROSUVASTATIN 10 MG TAB (CRESTOR) PO SCH (21:15)
[2016-11-18] VITALS (7 sets, daily range): BP systolic 109–165; BP diastolic 59–84
[2016-11-18 05:28] LABS: ALBUMIN 3.4 GM/DL (3.2-5.2); ALBUMIN/GLOBULIN RATIO 0.92 (1.00-1.93); ALKALINE PHOSPHATASE 54 U/L (45-117); ALT/SGPT 20 U/L (12-78); ANION GAP 8 MEQ/L (8-16); AST/SGOT 10 U/L (15-37); BILIRUBIN,TOTAL 0.4 MG/DL (0.2-1.0); BLOOD UREA NITROGEN 23 MG/DL (7-18); CALCIUM LEVEL 10.2 MG/DL (8.8-10.2); CARBON DIOXIDE LEVEL 29 MEQ/L (21-32); CHLORIDE LEVEL 100 MEQ/L (98-107); CREATININE FOR GFR 0.62 MG/DL (0.55-1.02); GLOMERULAR FILTRATION RATE > 60.0 (>39); GLUCOSE, FASTING 141 MG/DL (83-110); POTASSIUM SERUM 4.3 MEQ/L (3.5-5.1); SODIUM LEVEL 137 MEQ/L (136-145); TOTAL PROTEIN 7.1 GM/DL (6.4-8.2)
[2016-11-18] MEDS: ADVAIR HFA 115/21MCG INHALER INH SCH ×2 (08:19→19:43)
[2016-11-18] MEDS: MIRALAX *UNIT DOSE* 17GM PACKET PO SCH (09:07)
[2016-11-18] MEDS: CYANOCOBALAMIN 500 MCG TAB PO SCH (09:08)
[2016-11-18] MEDS: PANTOPRAZOLE 40MG TAB (PROTONIX) PO SCH (09:08)
[2016-11-18] MEDS: IRBESARTAN 150 MG TAB PO SCH ×2 (09:08→21:40)
[2016-11-18] MEDS: FERROUS GLUCONATE 324 MG TAB PO SCH (09:09)
[2016-11-18] MEDS: LORATADINE 10 MG TAB PO SCH (09:09)
[2016-11-18] MEDS: levETIRAcetam 250MG TABLET (KEPPRA) PO SCH ×2 (09:09→21:39)
[2016-11-18] MEDS: BISOPROLOL FUMARATE 5 MG TAB PO SCH ×2 (09:09→21:40)
[2016-11-18] MEDS: CALCIUM/VITAMIN D 500 MG TAB PO SCH ×2 (09:09→21:40)
[2016-11-18] MEDS: NYSTATIN 100,000 UNITS/GM TOPICAL PWD 15 GM TOP SCH ×2 (09:10→21:42)
[2016-11-18 10:24] LABS: BASO % 0.2 % (0.0-1.0); LYMPH # 1.4 10^3/uL (1.5-4.5); LYMPH % 7.4 % (24.0-44.0); MEAN CORPUSCULAR HEMOGLOBIN 26.9 pg (27.0-33.0); MEAN CORPUSCULAR HGB CONC 32.4 g/dl (32.0-36.5); MONO # 1.4 10^3/uL (0.0-0.8); MONO % 7.2 % (0.0-5.0); NEUTROPHILS # 14.7 10^3/uL (1.8-7.7); PLATELET COUNT, AUTOMATED 420 10^3/uL (150-450); RED CELL DISTRIBUTION WIDTH 14.6 % (11.5-14.5); WHITE BLOOD COUNT 18.9 10^3/uL (4.0-10.0)
[2016-11-18 10:25] LABS: IMMATURE GRANULOCYTE % 7.2 % (0-0)
[2016-11-18 10:51] LABS: ALBUMIN 3.4 GM/DL (3.2-5.2); ALBUMIN/GLOBULIN RATIO 0.92 (1.00-1.93); ALKALINE PHOSPHATASE 52 U/L (45-117); ALT/SGPT 23 U/L (12-78); ANION GAP 9 MEQ/L (8-16); AST/SGOT 11 U/L (15-37); BILIRUBIN,TOTAL 0.4 MG/DL (0.2-1.0); BLOOD UREA NITROGEN 27 MG/DL (7-18); CALCIUM LEVEL 9.6 MG/DL (8.8-10.2); CARBON DIOXIDE LEVEL 27 MEQ/L (21-32); CHLORIDE LEVEL 97 MEQ/L (98-107); CREATININE FOR GFR 0.64 MG/DL (0.55-1.02); GLOMERULAR FILTRATION RATE > 60.0 (>39); GLUCOSE, FASTING 153 MG/DL (83-110); POTASSIUM SERUM 4.1 MEQ/L (3.5-5.1); SODIUM LEVEL 133 MEQ/L (136-145); TOTAL PROTEIN 7.1 GM/DL (6.4-8.2)
[2016-11-18] MEDS: ROSUVASTATIN 10 MG TAB (CRESTOR) PO SCH (21:39)
[2016-11-19 06:00] VITALS: BP 151/77
--- NOTE | 2016-11-19 07:15 | EEG ---
DATE OF PROCEDURE: 11/18/2016 REFERRING PHYSICIAN: Dr. Tushar Barr DIAGNOSIS: Alerted mental status. ELECTROENCEPHALOGRAM #: [id number] HISTORY: The patient is a 76-year-old woman who was admitted at [facility] due to a large left temporal lobe mass and had craniotomy. The procedure was done to rule out epileptic potential. She is currently taking Keppra, Protonix, Crestor, vitamin B12, bisoprolol, irbesartan, etc. TECHNICAL DESCRIPTION: This digital EEG was recorded by 21 scalp, ear and two EKG electrodes and was reviewed in bipolar and referential montages following reformatting in 10-20 international electrode placement system. INTERPRETATION: The patient was noted to be in awake and drowsy states during this EEG. Resting awake background consisted of 9 hertz alpha activity measuring 15-30 microvolts in amplitude, which was symmetric and reactive to eye opening. Anteriorly low voltage and mixed frequency activity was noted. Stage 1 and II sleep were reviewed and were symmetric bilaterally. Attenuation of posterior dominant rhythm was seen during transition to drowsiness. Hyperventilation could not be performed. Photic stimulation remained unremarkable. Intermittent left temporal theta slowing was noted. No epileptiform abnormalities were seen. No clinical or electrographic seizures were recorded. EKG revealed normal sinus rhythm. CONCLUSION: This EEG in awake, drowsy states, Stage I and II sleep is mildly abnormal due to presence of mild intermittent left temporal slowing consistent with focal, cortical, structural or functional abnormality. No epileptiform abnormalities were seen. Clinical correlation is recommended.
[2016-11-19 07:18] LABS: MEAN CORPUSCULAR HEMOGLOBIN 26.9 pg (27.0-33.0); MEAN CORPUSCULAR HGB CONC 32.4 g/dl (32.0-36.5); MEAN CORPUSCULAR VOLUME 83.2 fl (80.0-96.0); PLATELET COUNT, AUTOMATED 444 10^3/uL (150-450); RED CELL DISTRIBUTION WIDTH 14.7 % (11.5-14.5); WHITE BLOOD COUNT 22.1 10^3/uL (4.0-10.0)
[2016-11-19 07:21] LABS: ADD MANUAL DIFFER YES; DIFF SLIDE NUMBER 43
[2016-11-19] MEDS: ADVAIR HFA 115/21MCG INHALER INH SCH ×2 (07:40→20:22)
[2016-11-19 07:43] LABS: ALBUMIN 3.5 GM/DL (3.2-5.2); ALBUMIN/GLOBULIN RATIO 0.95 (1.00-1.93); ALKALINE PHOSPHATASE 52 U/L (45-117); ALT/SGPT 21 U/L (12-78); ANION GAP 6 MEQ/L (8-16); AST/SGOT 8 U/L (15-37); BILIRUBIN,TOTAL 0.4 MG/DL (0.2-1.0); BLOOD UREA NITROGEN 31 MG/DL (7-18); CALCIUM LEVEL 9.9 MG/DL (8.8-10.2); CARBON DIOXIDE LEVEL 31 MEQ/L (21-32); CHLORIDE LEVEL 98 MEQ/L (98-107); GLOMERULAR FILTRATION RATE > 60.0 (>39); GLUCOSE, FASTING 124 MG/DL (83-110); SODIUM LEVEL 135 MEQ/L (136-145); TOTAL PROTEIN 7.2 GM/DL (6.4-8.2)
[2016-11-19 07:45] LABS: POTASSIUM SERUM 5.2 MEQ/L (3.5-5.1)
--- NOTE | 2016-11-19 08:11 | IPNPDOC ---
Subjective Date Seen The patient was seen on 11/19/16. Subjective Chief Complaint/HPI The patient is a 76-year-old female admitted with a reason for visit of Brain Mass. Events since last encounter denies c/o. sleeping well. Constitutional: Denies: Chills, Fever, Night Sweats Pulmonary: Denies: Dyspnea, Cough Cardiovascular: Denies: Chest Pain, Palpitations, Orthopnea, Paroxysmal Noc. Dyspnea, Lt Headedness Gastrointestinal: Denies: Nausea, Vomiting, Abdominal Pain, Diarrhea, Constipation Objective Physical Examination General Exam: Positive: No Acute Distress, Other (was sleeping alone in her room when I entered, but is easily arousable) Eye Exam: Positive: EOMI, Negative: Sclera icteric ENT Exam: Negative: Atraumatic (there is a staple over a well healing incision on her right frontal scalp, and a clean bandage over the left occipital scalp) Neck Exam: Negative: Lymphadenopathy Chest Exam: Positive: Clear to auscultation Heart Exam: Positive: Rate Normal, Regular Rhythm Abdomen Exam: Positive: Normal bowel sounds, Soft, Negative: Tenderness Neuro Exam: Negative: Normal Speech (she has more difficulty with word finding ) Psych Exam: Negative: Memory Intact Assessment /Plan Problems (1) Brain mass Problem Specific Plan: Consult Specialist, Monitor Clinically, Repeat Labs Problem Text: Continue to wait for pathology Neurosurgery following Dr. Jordan has been consulted for a second opinion. Dr. Andres is out of town for a week. Dr. Jordan would like to wait until the official read of the brain biopsy is back before he makes a final decision that it's nondiagnostic; he recalls incidences where the frozen section has not been diagnostic but they were able to get a little more out of the fully fixed section to make a diagnosis. 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 There is an area of increased signal intensity in the medial left parietal lobe with associated mass effect. This is suspicious for a low grade glioma. Small vessel ischemic disease. Mild volume loss. CT Chest and Abd/pel were obtained to search for primary. CT Chest: 14 mm nodule in the anterior segment of the right lower lobe, not present on the comparison study. CT Abd/pel: No mass, adenopathy, or ascites. Chronic thickening of the terminal ileum, unchanged. Fat-containing ventral hernia, unchanged. Small hiatal hernia , unchanged. No lytic, blastic or destructive skeletal changes. Degenerative disc disease in the lumbar spine. Bilateral hip osteoarthritis, worse on the left. (2) Lung nodule Discussed With: Patient, Family with Pt Consent Problem Text: 11/17/2016: Pulmonology, informal consult, advised against bronchoscopy. Recommends interventional to see if can get to nodule. Dr. Jordan is requesting that we strongly consider working up this lung nodule while she is in the hospital. He has a strong clinical suspicion that the brain lesion is metastatic. Additionally if she has a primary lung cancer it may change his recommendation to do an excisional bx of the brain lesion which almost assuredly leave her with some weakness and speech deficits. Tomorrow we should contact IR and/or Pulm to see whether CT guided bx or navigational bronchoscopy with bx is the best way to get a sample of this lesion. ------ CT Chest: 14 mm nodule in the anterior segment of the right lower lobe, not present on the comparison study. (3) Brain compression Status: Acute Response to Treatment: Improving Problem Specific Plan: Monitor Clinically Problem Text: In discussion with Dr. Jordan he is concerned that the slight neurological declines are some post-op edema. He has ordered a repeat CT to evaluate this. Will monitor clinically and leave the management to him. (4) HTN (hypertension) Status: Chronic Problem Specific Plan: Monitor Clinically Problem Text: On Avapro, Zebeta, Norvasc with hold parameters. Pressures are a little higher today, but I will wait until after the CT to make any changes if needed. This may represent autoregulation in a swollen brain. (5) CAD (coronary artery disease) Status: Chronic Problem Specific Plan: Monitor Clinically Problem Text: Out-patient aspirin and plavix have been held and remain so in anticipation of a lung biopsy. (6) COPD (chronic obstructive pulmonary disease) Status: Chronic Problem Specific Plan: Monitor Clinically Problem Text: Stable (7) Hyperlipidemia Status: Chronic Problem Specific Plan: Monitor Clinically Problem Text: On Crestor. (8) Anemia Status: Chronic Problem Specific Plan: Monitor Clinically Problem Text: On Supplemental B12 and Iron. (9) Leukocytosis Status: Acute Problem Text: steroid induced. no signs of infectious process. monitor. Plan/VTE VTE Prophylaxis Ordered?: Yes (TEDs and SCDs) VTE Exclusion Pharmacological: Bleeding Risk (intracranial procedure) Plan Anticipated Discharge: Home With Services (based on therapy's recommendation) VS, I&O, 24H, [facility] Vital Signs/I&O Vital Signs Date Time Temp Pulse Resp B/P (MAP) Pulse Ox O2 Delivery O2 Flow Rate FiO2 11/19/16 06:00 97.8 58 17 151/77 (101) 95 Room Air 11/17/16 16:00 I&O- Last 24 Hours up to 6 AM 11/20/16 06:00 Intake Total 0 ml Output Total 650 ml Balance -650 ml Laboratory Data 24H LABS Laboratory Tests 2 11/18/16 10:13: Immature Granulocyte % (Auto) 7.2H, White Blood Count 18.9H, Red Blood Count 5.06, Hemoglobin 13.6, Hematocrit 42.0, Mean Corpuscular Volume 83.0, Mean Corpuscular Hemoglobin 26.9L, Mean Corpuscular Hemoglobin Concent 32.4, Red Cell Distribution Width 14.6H, Platelet Count 420, Neutrophils (%) (Auto) 78.0H , Lymphocytes (%) (Auto) 7.4L, Monocytes (%) (Auto) 7.2H, Eosinophils (%) (Auto ) 0.0, Basophils (%) (Auto) 0.2, Neutrophils # (Auto) 14.7H, Lymphocytes # (Auto ) 1.4L, Monocytes # (Auto) 1.4H, Eosinophils # (Auto) 0.0, Basophils # (Auto) 0.0, Immature Granulocyte # (Auto) 1.4H, Nucleated Red Blood Cells % (auto) 0.0 , Anion Gap 9, Glomerular Filtration Rate > 60.0, Blood Urea Nitrogen 27H, Creatinine 0.64, Sodium Level 133L, Potassium Level 4.1, Chloride Level 97L, Carbon Dioxide Level 27, Calcium Level 9.6, Aspartate Amino Transf (AST/SGOT) 11L, Alanine Aminotransferase (ALT/SGPT) 23, Alkaline Phosphatase 52, Total Bilirubin 0.4, Total Protein 7.1, Albumin 3.4, Albumin/Globulin Ratio 0.92L 11/18/16 21:37: Urine Random Sodium 32 11/19/16 07:03: Immature Granulocyte % (Auto) , Nucleated Red Blood Cells % (auto) 0.0, Anion Gap 6L, Glomerular Filtration Rate > 60.0, Blood Urea Nitrogen 31H, Creatinine 0.60, Sodium Level 135L, Potassium Level 5.2H, Chloride Level 98, Carbon Dioxide Level 31, Calcium Level 9.9, Aspartate Amino Transf (AST/SGOT) 8L, Alanine Aminotransferase (ALT/SGPT) 21, Alkaline Phosphatase 52, Total Bilirubin 0.4, Total Protein 7.2, Albumin 3.5, Albumin/Globulin Ratio 0.95L CBC/BMP Laboratory Tests 11/18/16 10:13 Red Blood Count 5.06, Mean Corpuscular Volume 83.0, Mean Corpuscular Hemoglobin 26.9 L, Mean Corpuscular Hemoglobin Concent 32.4, Red Cell Distribution Width 14.6 H, Neutrophils (%) (Auto) 78.0 H, Lymphocytes (%) (Auto) 7.4 L, Monocytes ( %) (Auto) 7.2 H, Eosinophils (%) (Auto) 0.0, Basophils (%) (Auto) 0.2, Neutrophils # (Auto) 14.7 H, Lymphocytes # (Auto) 1.4 L, Monocytes # (Auto) 1.4 H, Eosinophils # (Auto) 0.0, Basophils # (Auto) 0.0, Calcium Level 9.6, Aspartate Amino Transf (AST/SGOT) 11 L, Alanine Aminotransferase (ALT/SGPT) 23, Alkaline Phosphatase 52, Total Bilirubin 0.4, Total Protein 7.1, Albumin 3.4 11/19/16 07:03 Red Blood Count 5.05, Mean Corpuscular Volume 83.2, Mean Corpuscular Hemoglobin 26.9 L, Mean Corpuscular Hemoglobin Concent 32.4, Red Cell Distribution Width 14.7 H, Calcium Level 9.9, Aspartate Amino Transf (AST/SGOT) 8 L, Alanine Aminotransferase (ALT/SGPT) 21, Alkaline Phosphatase 52, Total Bilirubin 0.4, Total Protein 7.2, Albumin 3.5 Nancy Johns [facility] Nov 19, 2016 08:10
[2016-11-19] MEDS: NYSTATIN 100,000 UNITS/GM TOPICAL PWD 15 GM TOP SCH ×2 (09:00→20:36)
[2016-11-19 09:08] LABS: BANDS 1 % (< 11)
[2016-11-19 09:09] LABS: ANISOCYTOSIS 1+; MICROCYTOSIS 1+
[2016-11-19] MEDS: CYANOCOBALAMIN 500 MCG TAB PO SCH (09:58)
[2016-11-19] MEDS: CALCIUM/VITAMIN D 500 MG TAB PO SCH ×2 (09:58→20:34)
[2016-11-19] MEDS: BISOPROLOL FUMARATE 5 MG TAB PO SCH ×2 (09:58→20:34)
[2016-11-19] MEDS: FERROUS GLUCONATE 324 MG TAB PO SCH (09:58)
[2016-11-19] MEDS: LORATADINE 10 MG TAB PO SCH (09:58)
[2016-11-19] MEDS: PANTOPRAZOLE 40MG TAB (PROTONIX) PO SCH (09:58)
[2016-11-19] MEDS: levETIRAcetam 250MG TABLET (KEPPRA) PO SCH ×2 (09:58→20:34)
[2016-11-19] MEDS: MIRALAX *UNIT DOSE* 17GM PACKET PO SCH (09:58)
[2016-11-19] MEDS: IRBESARTAN 150 MG TAB PO SCH ×2 (09:58→20:35)
[2016-11-19 10:00] VITALS: BP 137/64
[2016-11-19 14:00] VITALS: BP 121/65
[2016-11-19 18:00] VITALS: BP 160/74
[2016-11-19] MEDS: ROSUVASTATIN 10 MG TAB (CRESTOR) PO SCH (20:34)
[2016-11-19 22:00] VITALS: BP 146/79
[2016-11-20 02:00] VITALS: BP 122/58
[2016-11-20 06:00] VITALS: BP 154/67
[2016-11-20 07:08] LABS: MEAN CORPUSCULAR HEMOGLOBIN 26.9 pg (27.0-33.0); MEAN CORPUSCULAR HGB CONC 32.8 g/dl (32.0-36.5); MEAN CORPUSCULAR VOLUME 82.1 fl (80.0-96.0); RED CELL DISTRIBUTION WIDTH 14.6 % (11.5-14.5); WHITE BLOOD COUNT 21.9 10^3/uL (4.0-10.0)
[2016-11-20] MEDS: ADVAIR HFA 115/21MCG INHALER INH SCH ×2 (07:15→20:10)
[2016-11-20 07:16] LABS: ADD MANUAL DIFFER YES; PLATELET COUNT, AUTOMATED 331 10^3/uL (150-450)
[2016-11-20 07:17] LABS: DIFF SLIDE NUMBER 31
[2016-11-20 07:27] LABS: ALBUMIN 3.5 GM/DL (3.2-5.2); ALBUMIN/GLOBULIN RATIO 1.09 (1.00-1.93); ALKALINE PHOSPHATASE 52 U/L (45-117); ALT/SGPT 23 U/L (12-78); ANION GAP 12 MEQ/L (8-16); AST/SGOT 7 U/L (15-37); BILIRUBIN,TOTAL 0.5 MG/DL (0.2-1.0); BLOOD UREA NITROGEN 34 MG/DL (7-18); CALCIUM LEVEL 9.8 MG/DL (8.8-10.2); CARBON DIOXIDE LEVEL 23 MEQ/L (21-32); CHLORIDE LEVEL 99 MEQ/L (98-107); CREATININE FOR GFR 0.53 MG/DL (0.55-1.02); GLOMERULAR FILTRATION RATE > 60.0 (>39); GLUCOSE, FASTING 114 MG/DL (83-110); POTASSIUM SERUM 4.6 MEQ/L (3.5-5.1); SODIUM LEVEL 134 MEQ/L (136-145); TOTAL PROTEIN 6.7 GM/DL (6.4-8.2)
[2016-11-20 07:54] LABS: ANISOCYTOSIS 1+
[2016-11-20 08:18] VITALS: BP 144/69
--- NOTE | 2016-11-20 08:45 | IPNPDOC ---
Subjective Date Seen The patient was seen on 11/20/16. Subjective Chief Complaint/HPI The patient is a 76-year-old female admitted with a reason for visit of Brain Mass. Events since last encounter Patient found at bedside this morning mildly agitated. States has strong convictions regarding health care providers and the pentec[employer]ism they follow. Patient had discussion with Dr. Jordan last night and was advised may need further surgical intervention for biopsy of brain mass due to not enough tissue removed from initial biopsy. Patient now writing long pragraphs about confucianist conviction and requesting her surgical and health care providers are of [employer]. daughter and son have expressed concern over patients behavior and statements. Constitutional: Denies: Chills, Fever, Night Sweats ENT: Denies: Head Aches Skin: Denies: Rash, Lesions, Breakdown Pulmonary: Denies: Dyspnea, Cough Cardiovascular: Denies: Chest Pain, Palpitations, Orthopnea, Paroxysmal Noc. Dyspnea, Lt Headedness Objective Physical Examination General Exam: Positive: No Acute Distress, Other (was sleeping alone in her room when I entered, but is easily arousable) Eye Exam: Positive: EOMI, Negative: Sclera icteric ENT Exam: Negative: Atraumatic (there is a staple over a well healing incision on her right frontal scalp, and a clean bandage over the left occipital scalp) Neck Exam: Negative: Lymphadenopathy Chest Exam: Positive: Clear to auscultation Heart Exam: Positive: Rate Normal, Regular Rhythm Abdomen Exam: Positive: Normal bowel sounds, Soft, Negative: Tenderness Neuro Exam: Negative: Normal Speech (she has more difficulty with word finding ) Psych Exam: Negative: Memory Intact Assessment /Plan Problems (1) Brain mass Problem Specific Plan: Consult Specialist, Monitor Clinically, Repeat Labs Problem Text: 11/20/16: awaiting results from [facility], may need further surgical intervention. Noting some MS and behvior changes. Will arrange for psychiatry eval for medical decision making capabilities and insight. Discussed case with patient's daughter Kait, who agrees with plan. ? behavior changes related to Keppra. Continue to wait for pathology Neurosurgery following Dr. Jordan has been consulted for a second opinion. Dr. Andres is out of town for a week. Dr. Jordan would like to wait until the official read of the brain biopsy is back before he makes a final decision that it's nondiagnostic; he recalls incidences where the frozen section has not been diagnostic but they were able to get a little more out of the fully fixed section to make a diagnosis. 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 There is an area of increased signal intensity in the medial left parietal lobe with associated mass effect. This is suspicious for a low grade glioma. Small vessel ischemic disease. Mild volume loss. CT Chest and Abd/pel were obtained to search for primary. CT Chest: 14 mm nodule in the anterior segment of the right lower lobe, not present on the comparison study. CT Abd/pel: No mass, adenopathy, or ascites. Chronic thickening of the terminal ileum, unchanged. Fat-containing ventral hernia, unchanged. Small hiatal hernia , unchanged. No lytic, blastic or destructive skeletal changes. Degenerative disc disease in the lumbar spine. Bilateral hip osteoarthritis, worse on the left. (2) Lung nodule Discussed With: Patient, Family with Pt Consent Problem Text: 11/19/16: Per Interventional Rad: most likely not a primary. Proceed with brain mass bx and pathology prior to lung nodule eval. 11/17/2016: Pulmonology, informal consult, advised against bronchoscopy. Recommends interventional to see if can get to nodule. Dr. Jordan is requesting that we strongly consider working up this lung nodule while she is in the hospital. He has a strong clinical suspicion that the brain lesion is metastatic. Additionally if she has a primary lung cancer it may change his recommendation to do an excisional bx of the brain lesion which almost assuredly leave her with some weakness and speech deficits. Tomorrow we should contact IR and/or Pulm to see whether CT guided bx or navigational bronchoscopy with bx is the best way to get a sample of this lesion. ------ CT Chest: 14 mm nodule in the anterior segment of the right lower lobe, not present on the comparison study. (3) Brain compression Status: Acute Response to Treatment: Improving Problem Specific Plan: Monitor Clinically Problem Text: In discussion with Dr. Jordan he is concerned that the slight neurological declines are some post-op edema. He has ordered a repeat CT to evaluate this. Will monitor clinically and leave the management to him. (4) HTN (hypertension) Status: Chronic Problem Specific Plan: Monitor Clinically Problem Text: On Avapro, Zebeta, Norvasc with hold parameters. Pressures are a little higher today, but I will wait until after the CT to make any changes if needed. This may represent autoregulation in a swollen brain. (5) CAD (coronary artery disease) Status: Chronic Problem Specific Plan: Monitor Clinically Problem Text: Out-patient aspirin and plavix have been held and remain so in anticipation of a lung biopsy. (6) COPD (chronic obstructive pulmonary disease) Status: Chronic Problem Specific Plan: Monitor Clinically Problem Text: Stable (7) Hyperlipidemia Status: Chronic Problem Specific Plan: Monitor Clinically Problem Text: On Crestor. (8) Anemia Status: Chronic Problem Specific Plan: Monitor Clinically Problem Text: On Supplemental B12 and Iron. (9) Leukocytosis Status: Acute Problem Text: steroid induced. no signs of infectious process. monitor. Plan/VTE VTE Prophylaxis Ordered?: Yes (TEDs and SCDs) VTE Exclusion Pharmacological: Bleeding Risk (intracranial procedure) Plan Anticipated Discharge: Home With Services (based on therapy's recommendation) [facility] Vital Signs/I&O Vital Signs Date Time Temp Pulse Resp B/P (MAP) Pulse Ox O2 Delivery O2 Flow Rate FiO2 11/20/16 08:18 97.1 66 18 144/69 (94) 96 Room Air 11/20/16 06:00 2.0 Laboratory Data 24H LABS Laboratory Tests 2 11/20/16 06:28: Immature Granulocyte % (Auto) , Nucleated Red Blood Cells % (auto) 0.0, Neutrophils 87H, Lymphocytes (Manual) 8L, Monocytes (Manual) 3, Metamyelocytes 2H, Platelet Estimate NORMAL, Anisocytosis 1+, Anion Gap 12, Glomerular Filtration Rate > 60.0, Blood Urea Nitrogen 34H, Creatinine 0.53L, Sodium Level 134L, Potassium Level 4.6, Chloride Level 99, Carbon Dioxide Level 23, Calcium Level 9.8, Aspartate Amino Transf (AST/SGOT) 7L, Alanine Aminotransferase (ALT/ SGPT) 23, Alkaline Phosphatase 52, Total Bilirubin 0.5, Total Protein 6.7, Albumin 3.5, Albumin/Globulin Ratio 1.09 CBC/BMP Laboratory Tests 11/20/16 06:28 Red Blood Count 5.13, Mean Corpuscular Volume 82.1, Mean Corpuscular Hemoglobin 26.9 L, Mean Corpuscular Hemoglobin Concent 32.8, Red Cell Distribution Width 14.6 H, Calcium Level 9.8, Aspartate Amino Transf (AST/SGOT) 7 L, Alanine Aminotransferase (ALT/SGPT) 23, Alkaline Phosphatase 52, Total Bilirubin 0.5, Total Protein 6.7, Albumin 3.5 Nancy Johns [employer] Nov 20, 2016 08:45
--- NOTE | 2016-11-20 09:40 | REP ---
CT HEAD WITHOUT CONTRAST: HISTORY: Mental status change. COMPARISON: 11/17/2016. A hypodense mass with surrounding vasogenic edema is present in the posterior left temporal lobe. There is mass effect with partial effacement of the overlying cortical sulci and posterior body , atrium and occipital horn of the left lateral ventricle. There is no midline shift. The ventricular system and cortical sulci are dilated consistent with mild volume loss. There is no extracerebral collection. A corey hole is present in the left parietal bone. The visualized sinuses are clear. IMPRESSION: There is a hypodense mass with surrounding vasogenic edema in the posterior left temporal lobe unchanged compared to the previous study. Signed by Elias Ruelas MD 11/20/2016 09:49 A
[2016-11-20] MEDS: MIRALAX *UNIT DOSE* 17GM PACKET PO SCH (10:16)
[2016-11-20] MEDS: PANTOPRAZOLE 40MG TAB (PROTONIX) PO SCH (10:16)
[2016-11-20] MEDS: levETIRAcetam 250MG TABLET (KEPPRA) PO SCH ×2 (10:17→21:23)
[2016-11-20] MEDS: CALCIUM/VITAMIN D 500 MG TAB PO SCH ×2 (10:17→21:23)
[2016-11-20] MEDS: IRBESARTAN 150 MG TAB PO SCH ×2 (10:17→21:24)
[2016-11-20] MEDS: FERROUS GLUCONATE 324 MG TAB PO SCH (10:17)
[2016-11-20] MEDS: CYANOCOBALAMIN 500 MCG TAB PO SCH (10:17)
[2016-11-20] MEDS: LORATADINE 10 MG TAB PO SCH (10:17)
[2016-11-20] MEDS: NYSTATIN 100,000 UNITS/GM TOPICAL PWD 15 GM TOP SCH ×2 (10:18→21:23)
[2016-11-20] MEDS: BISOPROLOL FUMARATE 5 MG TAB PO SCH ×2 (10:18→21:24)
[2016-11-20 12:12] VITALS: BP 156/69
--- NOTE | 2016-11-20 12:39 | MHIPNPDOC ---
[facility] Progress Note Progress Note DATE OF SERVICE: 11/20/16 HISTORY: Pt. was seen and evaluated this morning, full consult to follow. Patient is delusional and this is secondary to another medical condition. Recommend to start her on Olanzapine 2.5 mgs. PO QHS and reconsider the use of Keppra because it's depressogenic. TIME SPENT: 15 minutes. Vital Signs Vital Signs Date Time Temp Pulse Resp B/P (MAP) Pulse Ox O2 Delivery O2 Flow Rate FiO2 11/20/16 12:12 97.5 68 18 156/69 (98) 97 Room Air 11/20/16 06:00 2.0 Laboratory Data 24H Labs Laboratory Tests 2 11/20/16 06:28: Immature Granulocyte % (Auto) , Nucleated Red Blood Cells % (auto) 0.0, Neutrophils 87H, Lymphocytes (Manual) 8L, Monocytes (Manual) 3, Metamyelocytes 2H, Platelet Estimate NORMAL, Anisocytosis 1+, Anion Gap 12, Glomerular Filtration Rate > 60.0, Blood Urea Nitrogen 34H, Creatinine 0.53L, Sodium Level 134L, Potassium Level 4.6, Chloride Level 99, Carbon Dioxide Level 23, Calcium Level 9.8, Aspartate Amino Transf (AST/SGOT) 7L, Alanine Aminotransferase (ALT/ SGPT) 23, Alkaline Phosphatase 52, Total Bilirubin 0.5, Total Protein 6.7, Albumin 3.5, Albumin/Globulin Ratio 1.09 CBC/BMP Laboratory Tests 11/20/16 06:28 Red Blood Count 5.13, Mean Corpuscular Volume 82.1, Mean Corpuscular Hemoglobin 26.9 L, Mean Corpuscular Hemoglobin Concent 32.8, Red Cell Distribution Width 14.6 H, Calcium Level 9.8, Aspartate Amino Transf (AST/SGOT) 7 L, Alanine Aminotransferase (ALT/SGPT) 23, Alkaline Phosphatase 52, Total Bilirubin 0.5, Total Protein 6.7, Albumin 3.5 Current Medications Current Medications Acetaminophen (Tylenol Tab) 1,000 mg Q6HP PRN PO MILD PAIN OR FEVER Last administered on 11/14/16t 20:46; Start 11/11/16 at 16:30; Stop 12/14/16 at 16:29 Acetaminophen/ Codeine Phosphate (Tylenol/Codeine #3 Tablet) 1 ea Q6HP PRN PO MILD PAIN (PS 1-4) Last administered on 11/15/16 00:54; Start 11/12/16 at 17:00 ; Stop 11/27/16 at 16:59 Amlodipine Besylate (Norvasc) 2.5 mg BID PO Last administered on 11/20/16 10: 18; Start 11/11/16 at 21:00; Stop 12/14/16 at 20:59 Bisoprolol Fumarate (Zebeta) 5 mg BID PO Last administered on 11/20/16 10:18 ; Start 11/11/16 at 21:00; Stop 12/14/16 at 20:59 Calcium Carbonate (Tums) 1,000 mg Q4HP PRN PO HEARTBURN Last administered on 20:47; Start 11/14/16 at 15:30; Stop 12/14/16 at 15:29 Calcium/Vitamin D (Oscal D) 500 mg BID PO Last administered on 11/20/16 10:17 ; Start 11/11/16 at 21:00; Stop 12/14/16 at 20:59 Cyanocobalamin (Vitamin B12) 1,000 mcg DAILY PO Last administered on 10:17; Start 11/12/16 at 09:00; Stop 12/14/16 at 08:59 Dexamethasone (Decadron) 4 mg Q12H PO Last administered on 11/20/16 10:16; Start 11/11/16 at 21:00; Stop 12/14/16 at 20:59 Fentanyl Citrate (Sublimaze) 25 mcg Q5MP PRN IV MODERATE PAIN (PS 4-7); Start 11/14/16 at 14:15; Stop 11/14/16 at 15:18; Status DC Ferrous Gluconate (Fergon) 324 mg DAILY PO Last administered on 11/20/16 10: 17; Start 11/12/16 at 09:00; Stop 12/14/16 at 08:59 Glycopyrrolate (Robinul) 0.2 mg ASDIRECTED PRN IV BRADYCARDIA Last administered on 11/14/16 14:12; Start 11/14/16 at 14:30; Stop 11/14/16 at 15:31 ; Status DC Home Med (Med Rec Complete!) ASDIRECTED XX ; Start 11/11/16 at 18:30; Stop 11/11/16 at 18:31; Status DC Irbesartan (Avapro) 150 mg BID PO Last administered on 11/20/16 10:17; Start 11/11/16 at 21:00; Stop 12/14/16 at 20:59 Lactated Ringer's 1,000 ml @ 100 mls/hr Q10H IV ; Start 11/14/16 at 14:15; Stop 11/14/16 at 15:18; Status DC Levetiracetam (Keppra) 500 mg BID PO Last administered on 11/20/16 10:17; Start 11/11/16 at 21:00; Stop 12/14/16 at 20:59 Loratadine (Claritin) 10 mg DAILY PO Last administered on 11/20/16 10:17; Start 11/12/16 at 09:00; Stop 12/14/16 at 08:59 Metoclopramide HCl (REGLAN INJection) 10 mg Q6HP PRN IV NAUSEA OR VOMITING; Start 11/14/16 at 14:15; Stop 11/14/16 at 15:18; Status DC Nystatin (Mycostatin Powder, Nystop) 1 dose BID TOP Last administered on 10:18; Start 11/14/16 at 21:00; Stop 12/14/16 at 20:59 Ondansetron HCl (ZOFRAN INJection) 4 mg Q4HP PRN IV NAUSEA OR VOMITING; Start 11/14/16 at 14:15; Stop 11/14/16 at 15:18; Status DC Oxycodone/ Acetaminophen (Percocet 5mg/ 325mg Tablet) 1 tab ASDIRECTED PRN PO MILD/MODERATE PAIN (PS 1-7); Start 11/14/16 at 14:15; Stop 11/14/16 at 15:18; Status DC Pantoprazole Sodium (Protonix) 40 mg DAILY PO Last administered on 11/20/16 10:16; Start 11/12/16 at 09:00; Stop 12/14/16 at 08:59 Polyethylene Glycol (Miralax) 1 pkt DAILY PO Last administered on 11/20/16 10 :16; Start 11/13/16 at 09:00; Stop 12/14/16 at 08:59 Rosuvastatin Calcium (Crestor) 20 mg QHS PO Last administered on 11/19/16 20: 34; Start 11/11/16 at 21:00; Stop 12/14/16 at 20:59 Salmeterol Xinafoate/ Fluticasone (Advair Hfa 115/ 21) 2 puff BID INH Last administered on 11/20/16 07:15; Start 11/11/16 at 21:00; Stop 12/14/16 at 20: 59 Sodium Chloride 1,000 ml @ 100 mls/hr Q10H IV Last administered on 11/14/16 20:42; Start 11/13/16 at 23:59; Stop 11/15/16 at 13:20; Status DC Tramadol HCl (Ultram) 50 mg Q4HP PRN PO MODERATE PAIN (PS 5-7) Last administered on 11/15/16 20:10; Start 11/15/16 at 08:45; Stop 11/22/16 at 08: 44 Vancomycin HCl 1000 mg/IV Miscellaneous Supplies 1 each/ Dextrose 270 ml @ 270 mls/hr Q12H IV Last administered on 11/15/16 20:12; Start 11/14/16 at 21:00; Stop 11/15/16 at 21:59; Status DC Allergies Coded Allergies: Alcohol (Verified Allergy, Severe, LIPS SWELL HEART PALPITATIONS, 05/12/12) Meperidine (Unverified Allergy, Severe, LIPS SWELL HEART PALPITATIONS NAUSEA,VOMITING, 05/12/12) N/V Propoxyphene (Verified Allergy, Severe, LIPS SWELL HEART PALPITATIONS, 05/12/12) Sulfa Drugs (Verified Allergy, Mild, RASH-HIVES, 05/12/12) Sulfa Drugs Cross Reactors (Verified Allergy, Mild, RASH-HIVES, 05/12/12) Calcium Channel Blockers (Verified Allergy, Unknown, 05/12/12) Clavulanic Acid (Verified Allergy, Unknown, 05/12/12) Penicillins (Verified Allergy, Unknown, 05/12/12) Penicillins Cross Reactors (Verified Allergy, Unknown, 05/12/12) Quinolones (Verified Allergy, Unknown, 05/12/12) SHIRIN CALDERON MD Nov 20, 2016 12:39
[2016-11-20] MEDS: ROSUVASTATIN 10 MG TAB (CRESTOR) PO SCH (21:23)
[2016-11-20 22:00] VITALS: BP 136/69
[2016-11-21 02:00] VITALS: BP 133/68
[2016-11-21 06:00] VITALS: BP 142/68
[2016-11-21 06:11] LABS: MEAN CORPUSCULAR HEMOGLOBIN 27.3 pg (27.0-33.0); MEAN CORPUSCULAR HGB CONC 33.3 g/dl (32.0-36.5); PLATELET COUNT, AUTOMATED 370 10^3/uL (150-450); RED CELL DISTRIBUTION WIDTH 14.6 % (11.5-14.5)
[2016-11-21 06:14] LABS: ADD MANUAL DIFFER YES; DIFF SLIDE NUMBER 22
[2016-11-21 06:34] LABS: ALBUMIN 3.4 GM/DL (3.2-5.2); ALBUMIN/GLOBULIN RATIO 0.97 (1.00-1.93); ALKALINE PHOSPHATASE 54 U/L (45-117); ALT/SGPT 21 U/L (12-78); ANION GAP 5 MEQ/L (8-16); AST/SGOT 7 U/L (15-37); BILIRUBIN,TOTAL 0.6 MG/DL (0.2-1.0); BLOOD UREA NITROGEN 37 MG/DL (7-18); CALCIUM LEVEL 9.4 MG/DL (8.8-10.2); CARBON DIOXIDE LEVEL 30 MEQ/L (21-32); CHLORIDE LEVEL 98 MEQ/L (98-107); CREATININE FOR GFR 0.65 MG/DL (0.55-1.02); GLOMERULAR FILTRATION RATE > 60.0 (>39); GLUCOSE, FASTING 103 MG/DL (83-110); POTASSIUM SERUM 4.1 MEQ/L (3.5-5.1); SODIUM LEVEL 133 MEQ/L (136-145); TOTAL PROTEIN 6.9 GM/DL (6.4-8.2)
[2016-11-21 06:52] LABS: BANDS 1 % (< 11)
[2016-11-21] MEDS: ADVAIR HFA 115/21MCG INHALER INH SCH ×2 (07:50→19:33)
--- NOTE | 2016-11-21 08:03 | IPNPDOC ---
Subjective Date Seen The patient was seen on 11/21/16. Subjective Chief Complaint/HPI The patient is a 76-year-old female admitted with a reason for visit of Brain Mass. Events since last encounter Continues with grandiosity regarding holiness convictions. Psychiatry consult complete yet full consult note unavailable. Per note: start patient on Olanzapine 2.5 mg po QHS and reconsider Keppra dosing/use. Patient's Decadron dosing adjusted by Neurosurgery Objective Physical Examination General Exam: Positive: No Acute Distress, Other (was sleeping alone in her room when I entered, but is easily arousable) Eye Exam: Positive: EOMI, Negative: Sclera icteric ENT Exam: Negative: Atraumatic (there is a staple over a well healing incision on her right frontal scalp, and a clean bandage over the left occipital scalp) Neck Exam: Negative: Lymphadenopathy Chest Exam: Positive: Clear to auscultation Heart Exam: Positive: Rate Normal, Regular Rhythm Abdomen Exam: Positive: Normal bowel sounds, Soft, Negative: Tenderness Neuro Exam: Negative: Normal Speech (she has more difficulty with word finding ) Psych Exam: Positive: Other (speech mildly slurred. States tpday is a halleluja day. Unable to expand on statement. ), Negative: Memory Intact Assessment /Plan Problems (1) Brain mass Problem Specific Plan: Consult Specialist, Monitor Clinically, Repeat Labs Problem Text: 11/21/16: start Olanzapaine. Continue to wait on second opinion [facility]. Discuss with neurosurgery Keppra dosing adjustment 11/20/16: awaiting [facility], may need further surgical intervention. Noting some MS and behavior changes. Will arrange for psychiatry eval for medical decision making capabilities and insight. Discussed case with patient's daughter Kait, who agrees with plan. ? behavior changes related to Keppra. Continue to wait for pathology Neurosurgery following Dr. Jordan has been consulted for a second opinion. Dr. Andres is out of town for a week. Dr. Jordan would like to wait until the official read of the brain biopsy is back before he makes a final decision that it's nondiagnostic; he recalls incidences where the frozen section has not been diagnostic but they were able to get a little more out of the fully fixed section to make a diagnosis. 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 There is an area of increased signal intensity in the medial left parietal lobe with associated mass effect. This is suspicious for a low grade glioma. Small vessel ischemic disease. Mild volume loss. CT Chest and Abd/pel were obtained to search for primary. CT Chest: 14 mm nodule in the anterior segment of the right lower lobe, not present on the comparison study. CT Abd/pel: No mass, adenopathy, or ascites. Chronic thickening of the terminal ileum, unchanged. Fat-containing ventral hernia, unchanged. Small hiatal hernia , unchanged. No lytic, blastic or destructive skeletal changes. Degenerative disc disease in the lumbar spine. Bilateral hip osteoarthritis, worse on the left. (2) Lung nodule Discussed With: Patient, Family with Pt Consent Problem Text: 11/19/16: Per Interventional Rad: most likely not a primary. Proceed with brain mass bx and pathology prior to lung nodule eval. 11/17/2016: Pulmonology, informal consult, advised against bronchoscopy. Recommends interventional to see if can get to nodule. Dr. Jordan is requesting that we strongly consider working up this lung nodule while she is in the hospital. He has a strong clinical suspicion that the brain lesion is metastatic. Additionally if she has a primary lung cancer it may change his recommendation to do an excisional bx of the brain lesion which almost assuredly leave her with some weakness and speech deficits. Tomorrow we should contact IR and/or Pulm to see whether CT guided bx or navigational bronchoscopy with bx is the best way to get a sample of this lesion. ------ CT Chest: 14 mm nodule in the anterior segment of the right lower lobe, not present on the comparison study. (3) Brain compression Status: Acute Response to Treatment: Improving Problem Specific Plan: Monitor Clinically Problem Text: In discussion with Dr. Jordan he is concerned that the slight neurological declines are some post-op edema. He has ordered a repeat CT to evaluate this. Will monitor clinically and leave the management to him. (4) HTN (hypertension) Status: Chronic Problem Specific Plan: Monitor Clinically Problem Text: On Avapro, Zebeta, Norvasc with hold parameters. Pressures are a little higher today, but I will wait until after the CT to make any changes if needed. This may represent autoregulation in a swollen brain. (5) CAD (coronary artery disease) Status: Chronic Problem Specific Plan: Monitor Clinically Problem Text: Out-patient aspirin and plavix have been held and remain so in anticipation of a lung biopsy. (6) COPD (chronic obstructive pulmonary disease) Status: Chronic Problem Specific Plan: Monitor Clinically Problem Text: Stable (7) Hyperlipidemia Status: Chronic Problem Specific Plan: Monitor Clinically Problem Text: On Crestor. (8) Anemia Status: Chronic Problem Specific Plan: Monitor Clinically Problem Text: On Supplemental B12 and Iron. (9) Leukocytosis Status: Acute Problem Text: steroid induced. no signs of infectious process. monitor. Plan/VTE VTE Prophylaxis Ordered?: Yes (TEDs and SCDs) VTE Exclusion Pharmacological: Bleeding Risk (intracranial procedure) Plan Anticipated Discharge: Home With Services (based on therapy's recommendation) VS, I&O, 24H, Fishbone Vital Signs/I&O Vital Signs Date Time Temp Pulse Resp B/P (MAP) Pulse Ox O2 Delivery O2 Flow Rate FiO2 11/21/16 06:00 97.6 54 19 142/68 (92) 94 Room Air 11/20/16 06:00 2.0 Laboratory Data 24H LABS Laboratory Tests 2 11/21/16 05:49: Immature Granulocyte % (Auto) , White Blood Count 22.0H, Red Blood Count 4.99, Hemoglobin 13.6, Hematocrit 40.9, Mean Corpuscular Volume 82.0, Mean Corpuscular Hemoglobin 27.3, Mean Corpuscular Hemoglobin Concent 33.3, Red Cell Distribution Width 14.6H, Platelet Count 370, Monocytes # (Auto) , Nucleated Red Blood Cells % (auto) 0.0, Neutrophils 82H, Band Neutrophils 1, Lymphocytes ( Manual) 6L, Monocytes (Manual) 10H, Metamyelocytes 1H, Platelet Estimate NORMAL , Red Blood Cell Morphology NORMAL, Anion Gap 5L, Glomerular Filtration Rate > 60.0, Blood Urea Nitrogen 37H, Creatinine 0.65, Sodium Level 133L, Potassium Level 4.1, Chloride Level 98, Carbon Dioxide Level 30, Calcium Level 9.4, Aspartate Amino Transf (AST/SGOT) 7L, Alanine Aminotransferase (ALT/SGPT) 21, Alkaline Phosphatase 54, Total Bilirubin 0.6, Total Protein 6.9, Albumin 3.4, Albumin/Globulin Ratio 0.97L CBC/BMP Laboratory Tests 11/21/16 05:49 Red Blood Count 4.99, Mean Corpuscular Volume 82.0, Mean Corpuscular Hemoglobin 27.3, Mean Corpuscular Hemoglobin Concent 33.3, Red Cell Distribution Width 14.6 H, Monocytes # (Auto) , Calcium Level 9.4, Aspartate Amino Transf (AST/SGOT ) 7 L, Alanine Aminotransferase (ALT/SGPT) 21, Alkaline Phosphatase 54, Total Bilirubin 0.6, Total Protein 6.9, Albumin 3.4 Nancy Johns [employer] Nov 21, 2016 08:02
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
[2016-11-21] MEDS: MIRALAX *UNIT DOSE* 17GM PACKET PO SCH (08:39)
[2016-11-21] MEDS: IRBESARTAN 150 MG TAB PO SCH ×2 (08:40→20:58)
[2016-11-21] MEDS: CALCIUM/VITAMIN D 500 MG TAB PO SCH ×2 (08:40→20:57)
[2016-11-21] MEDS: levETIRAcetam 250MG TABLET (KEPPRA) PO SCH ×2 (08:40→20:57)
[2016-11-21] MEDS: CYANOCOBALAMIN 500 MCG TAB PO SCH (08:40)
[2016-11-21] MEDS: NYSTATIN 100,000 UNITS/GM TOPICAL PWD 15 GM TOP SCH ×2 (08:41→20:58)
[2016-11-21] MEDS: FERROUS GLUCONATE 324 MG TAB PO SCH (08:41)
[2016-11-21] MEDS: PANTOPRAZOLE 40MG TAB (PROTONIX) PO SCH (08:41)
[2016-11-21] MEDS: LORATADINE 10 MG TAB PO SCH (08:41)
[2016-11-21] MEDS: BISOPROLOL FUMARATE 5 MG TAB PO SCH ×2 (08:41→20:57)
[2016-11-21 10:00] VITALS: BP 138/71
[2016-11-21 14:00] VITALS: BP 136/69
[2016-11-21] MEDS: ROSUVASTATIN 10 MG TAB (CRESTOR) PO SCH (20:56)
[2016-11-21] MEDS: OLANZapine 2.5MG TABLET PO SCH (20:57)
[2016-11-22] VITALS: BP 102/60
[2016-11-22 06:00] VITALS: BP 108/64
[2016-11-22 06:27] LABS: MEAN CORPUSCULAR HEMOGLOBIN 27.1 pg (27.0-33.0); MEAN CORPUSCULAR HGB CONC 33.3 g/dl (32.0-36.5); MEAN CORPUSCULAR VOLUME 81.5 fl (80.0-96.0); PLATELET COUNT, AUTOMATED 373 10^3/uL (150-450); RED CELL DISTRIBUTION WIDTH 14.5 % (11.5-14.5); WHITE BLOOD COUNT 19.9 10^3/uL (4.0-10.0)
[2016-11-22 06:28] LABS: ADD MANUAL DIFFER YES; DIFF SLIDE NUMBER 20
[2016-11-22 06:51] LABS: ALBUMIN 3.3 GM/DL (3.2-5.2); ALKALINE PHOSPHATASE 55 U/L (45-117); ALT/SGPT 22 U/L (12-78); ANION GAP 8 MEQ/L (8-16); AST/SGOT 6 U/L (15-37); BILIRUBIN,TOTAL 0.4 MG/DL (0.2-1.0); BLOOD UREA NITROGEN 38 MG/DL (7-18); CALCIUM LEVEL 9.3 MG/DL (8.8-10.2); CARBON DIOXIDE LEVEL 27 MEQ/L (21-32); CHLORIDE LEVEL 100 MEQ/L (98-107); CREATININE FOR GFR 0.71 MG/DL (0.55-1.02); GLOMERULAR FILTRATION RATE > 60.0 (>39); GLUCOSE, FASTING 106 MG/DL (83-110); POTASSIUM SERUM 4.5 MEQ/L (3.5-5.1); SODIUM LEVEL 135 MEQ/L (136-145); TOTAL PROTEIN 6.6 GM/DL (6.4-8.2)
[2016-11-22] MEDS: ADVAIR HFA 115/21MCG INHALER INH SCH ×2 (07:39→19:37)
[2016-11-22] MEDS: FERROUS GLUCONATE 324 MG TAB PO SCH (08:58)
[2016-11-22] MEDS: CALCIUM/VITAMIN D 500 MG TAB PO SCH ×2 (08:58→22:20)
[2016-11-22] MEDS: CYANOCOBALAMIN 500 MCG TAB PO SCH (08:58)
[2016-11-22] MEDS: LORATADINE 10 MG TAB PO SCH (08:58)
[2016-11-22] MEDS: PANTOPRAZOLE 40MG TAB (PROTONIX) PO SCH (08:58)
[2016-11-22] MEDS: levETIRAcetam 250MG TABLET (KEPPRA) PO SCH ×2 (08:59→22:20)
[2016-11-22] MEDS: IRBESARTAN 150 MG TAB PO SCH ×2 (09:00→22:21)
[2016-11-22] MEDS: MIRALAX *UNIT DOSE* 17GM PACKET PO SCH (09:00)
[2016-11-22] MEDS: BISOPROLOL FUMARATE 5 MG TAB PO SCH ×2 (10:52→22:21)
[2016-11-22] MEDS: NYSTATIN 100,000 UNITS/GM TOPICAL PWD 15 GM TOP SCH ×2 (10:53→22:21)
[2016-11-22 12:00] VITALS: BP 127/62
--- NOTE | 2016-11-22 13:21 | IPN ---
DATE: 11/22/2016 Ms. Santos is a 76-year-old woman who was admitted with difficulty speaking and change in behavior. She has been found to have an enhancing mass in the left temporal lobe which has been biopsied but returned only necrotic tissue. She was signed out to me by Dr. Bear last night. At this time, she says she feels well. There were some concerns about increased holiness ideation and indeed she was seen by psychiatry and started olanzapine 2.5 mg at bedtime. I am also told that her dexamethasone was reduced from prior. She says she is pretty comfortable right now. Denies any headache or dizziness. No visual problems. She is not having any trouble speaking. In fact, her speech is somewhat pressured, but not tangential or paranoid. She does complain of some neck discomforts. She is not having any cough or shortness of breath, chest pains, palpitations or abdominal pains. Current medication regimen includes the scheduled olanzapine, Decadron 2 mg three times a day, Ultram 50 mg every 4 hours as needed for moderate pain. She got Nystatin powder, Tums, MiraLax, Tylenol #3 for lesser pain, Protonix, ferrous gluconate, loratadine, vitamin B12, Zebeta 5 mg twice a day, Avapro 150 mg twice a day, Advair HFA 2 puffs twice a day. She is on Crestor, Norvasc, Keppra, vitamin D and has Tylenol available as needed. On examination, her temperature is 97.5, blood pressure 108/64, pulse 65 and regular, respirations are 18, and oxygen saturation 94% on 2 liters per minute. She is alert, mostly oriented, pleasant and cooperative. She only got the number day of the month wrong and did know her age, her date and other factors of her location and today's date. As noted above, her speech is a little pressured , but is coherent and devoid of excessive holiness ideation. Certainly, not paranoid. Her eyes are clear. There is no neck masses, tenderness or adenopathy and no carotid bruits. Speech is clear. Lungs are clear. Heart has a regular rhythm without any murmur, click or gallop. Abdomen is soft, protuberant, nontender, without any masses or organomegaly. Bowel sounds are active. Labs today show glucose of 106, BUN 28, creatinine 0.7. White count is 19,900, but I am sure this is from her steroids. ASSESSMENT: 1. 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 She will remain on the olanzapine along with the Decadron with plans for additional biopsy procedure. 2. 14 mm nodule in lung. It appears that workup was in progress. Pulmonary advised against bronchoscopy. 3. Hypertension, controlled. 4. Coronary artery disease, stable. 5. Chronic obstructive pulmonary disease (COPD), not symptomatic at this time. 6. Hyperlipidemia, stable. 7. Anemia, chronic. 8. Leukocytosis due to steroid treatment. PLAN: Continue to monitor her labs and mental status awaiting the additional diagnostic neurosurgical procedure. I have to inquire whether interventional radiology was contacted about accessing the nodule in her lung. ANNITA
[2016-11-22 18:00] VITALS: BP 125/64
[2016-11-22] MEDS: ROSUVASTATIN 10 MG TAB (CRESTOR) PO SCH (22:20)
[2016-11-22] MEDS: OLANZapine 2.5MG TABLET PO SCH (22:21)
[2016-11-23] VITALS: BP 104/52
[2016-11-23 06:00] VITALS: BP 123/62
[2016-11-23 06:58] LABS: MEAN CORPUSCULAR HEMOGLOBIN 27.2 pg (27.0-33.0); MEAN CORPUSCULAR HGB CONC 33.4 g/dl (32.0-36.5); MEAN CORPUSCULAR VOLUME 81.3 fl (80.0-96.0); PLATELET COUNT, AUTOMATED 335 10^3/uL (150-450); RED CELL DISTRIBUTION WIDTH 14.6 % (11.5-14.5)
[2016-11-23 07:04] LABS: ADD MANUAL DIFFER YES; DIFF SLIDE NUMBER 9
[2016-11-23 07:12] LABS: ALBUMIN 3.1 GM/DL (3.2-5.2); ALKALINE PHOSPHATASE 49 U/L (45-117); ALT/SGPT 22 U/L (12-78); ANION GAP 8 MEQ/L (8-16); AST/SGOT 7 U/L (15-37); BILIRUBIN,TOTAL 0.5 MG/DL (0.2-1.0); BLOOD UREA NITROGEN 32 MG/DL (7-18); CALCIUM LEVEL 8.8 MG/DL (8.8-10.2); CARBON DIOXIDE LEVEL 23 MEQ/L (21-32); CHLORIDE LEVEL 104 MEQ/L (98-107); CREATININE FOR GFR 0.54 MG/DL (0.55-1.02); GLOMERULAR FILTRATION RATE > 60.0 (>39); GLUCOSE, FASTING 115 MG/DL (83-110); POTASSIUM SERUM 4.2 MEQ/L (3.5-5.1); SODIUM LEVEL 135 MEQ/L (136-145); TOTAL PROTEIN 6.2 GM/DL (6.4-8.2)
[2016-11-23 07:33] LABS: BANDS 1 % (< 11)
[2016-11-23] MEDS: ADVAIR HFA 115/21MCG INHALER INH SCH ×2 (08:35→20:06)
[2016-11-23] MEDS: NYSTATIN 100,000 UNITS/GM TOPICAL PWD 15 GM TOP SCH ×3 (09:00→21:00)
[2016-11-23] MEDS: FERROUS GLUCONATE 324 MG TAB PO SCH (10:07)
[2016-11-23] MEDS: IRBESARTAN 150 MG TAB PO SCH ×2 (10:07→22:23)
[2016-11-23] MEDS: CYANOCOBALAMIN 500 MCG TAB PO SCH (10:07)
[2016-11-23] MEDS: CALCIUM/VITAMIN D 500 MG TAB PO SCH ×2 (10:08→22:23)
[2016-11-23] MEDS: levETIRAcetam 250MG TABLET (KEPPRA) PO SCH ×2 (10:08→22:24)
[2016-11-23] MEDS: BISOPROLOL FUMARATE 5 MG TAB PO SCH ×2 (10:08→22:24)
[2016-11-23] MEDS: LORATADINE 10 MG TAB PO SCH (10:08)
[2016-11-23] MEDS: MIRALAX *UNIT DOSE* 17GM PACKET PO SCH (10:08)
[2016-11-23] MEDS: PANTOPRAZOLE 40MG TAB (PROTONIX) PO SCH (10:08)
[2016-11-23 12:00] VITALS: BP 145/89
[2016-11-23 15:10] LABS: ALBUMIN 3.7 GM/DL (3.2-5.2); ALBUMIN/GLOBULIN RATIO 1.16 (1.00-1.93); ALKALINE PHOSPHATASE 54 U/L (45-117); ALT/SGPT 24 U/L (12-78); ANION GAP 8 MEQ/L (8-16); AST/SGOT 10 U/L (15-37); BILIRUBIN,TOTAL 0.6 MG/DL (0.2-1.0); BLOOD UREA NITROGEN 42 MG/DL (7-18); CALCIUM LEVEL 9.4 MG/DL (8.8-10.2); CARBON DIOXIDE LEVEL 23 MEQ/L (21-32); CHLORIDE LEVEL 101 MEQ/L (98-107); CREATININE FOR GFR 0.73 MG/DL (0.55-1.02); GLOMERULAR FILTRATION RATE > 60.0 (>39); GLUCOSE, FASTING 126 MG/DL (83-110); POTASSIUM SERUM 4.5 MEQ/L (3.5-5.1); SODIUM LEVEL 132 MEQ/L (136-145); TOTAL PROTEIN 6.9 GM/DL (6.4-8.2)
[2016-11-23 15:35] LABS: RENAL EPITHELIAL CELLS 3 /HPF
[2016-11-23 18:00] VITALS: BP 120/44
--- NOTE | 2016-11-23 19:40 | IPNSKH ---
DATE: 11/23/2016 SUBJECTIVE: The patient is seen today on [facility] [place]. She has been seen by Dr. Jordan today who hopes to do his neurosurgical procedure tomorrow. She is not complaining of any headache or dizziness, not complaining of any double vision or impaired vision. Not having any cough or shortness of breath. No chest pains or palpitations. No nausea or vomiting, not having any edema. CURRENT MEDICATIONS: - olanzapine 2.5 mg daily - Decadron 2 mg three times a day - tramadol 50 mg every four hours as needed for pain - nystatin powder - Tums as needed - MiraLax one packet daily - Tylenol with Codeine one every six hours as needed for pain - pantoprazole 40 mg daily - ferrous gluconate 324 mg daily - loratadine 10 mg daily - vitamin B12 1000 mcg daily - bisoprolol 5 mg twice a day - Avapro 150 mg twice a day - Advair HFA two inhalations twice a day - Crestor 20 mg daily - Norvasc 2.5 mg daily - Keppra 500 mg twice a day - [place] with vitamin D 500 mg twice a day - Tylenol as needed OBJECTIVE: VITAL SIGNS: Current vitals show her temperature is 97.6, blood pressure 123/62 , pulse 65 and regular, respirations 17, O2 saturation on room air is 97%. GENERAL: She is alert, pleasant and cooperative, not in any distress. She is oriented to time, place and person except for the exact numerical date of the month. HEENT: Her eyes are clear. Pupils are equal, round and react to light. Extraocular movements are full. There is no facial weakness. Speech is clear. There is a healing incision on the left parietal area behind the ear, a small incision in the right frontal area. Mouth and throat are unremarkable. Tongue is unremarkable. Speech is clear. NECK: There are no neck masses, tenderness or adenopathy. No carotid bruits. RESPIRATORY: Her lungs are clears. CARDIAC: Her heart has a regular room without any murmur, click or gallop. ABDOMEN: Soft and nontender without any masses or organomegaly. Bowel sounds are active. I did note that she has a ventral hernia on the right. EXTREMITIES: There is no edema. She can move all extremities just fine. LABORATORY DATA: Labs today showed a white count of 20,000 which we feel is due to her steroid therapy, hemoglobin 12.6. Her differential shows 87 segs, one band, three lymphs, seven monos. BUN is 42, creatinine 0.73, sodium 132, potassium 4.5. Intake and output show that yesterday she was net negative with intake of 1035 and output of 1300. Today her input has been 1080, output 1600. I do note that she is eating and drinking well. ASSESSMENT: 1. Brain mass with mental status changes. 2. Lung nodule. 3. Hypertension. 4. Coronary artery disease. 5. Chronic obstructive pulmonary disease (COPD) 6. Hyperlipidemia. 7. Chronic anemia. 8. Leukocytosis due to steroid treatment. I also feel some of her elevated BUN is part of steroid treatment as well. PLAN: Will continue to monitor her labs and mental status. We hope to have her go to the operating room (OR) tomorrow. Do not think we should give her IV fluids, given the fact that she does not appear dry and also do not want to risk any cerebral edema. She is not on any diuretic medication at this time. From my [id number], she is cleared to go to the OR tomorrow to have her procedure done. ANNITA
[2016-11-23] MEDS: OLANZapine 2.5MG TABLET PO SCH (22:24)
[2016-11-23] MEDS: ROSUVASTATIN 10 MG TAB (CRESTOR) PO SCH (22:24)
[2016-11-24] VITALS (7 sets, daily range): BP systolic 118–152; BP diastolic 52–66
[2016-11-24] MEDS ORDERED: CLINDAMYCIN 900 MG in APPROPRIATE DILUENT 1 EA IV ONE (06:00)
[2016-11-24 06:41] LABS: MEAN CORPUSCULAR HEMOGLOBIN 27.2 pg (27.0-33.0); MEAN CORPUSCULAR HGB CONC 33.2 g/dl (32.0-36.5); MEAN CORPUSCULAR VOLUME 81.9 fl (80.0-96.0); PLATELET COUNT, AUTOMATED 343 10^3/uL (150-450); RED CELL DISTRIBUTION WIDTH 14.8 % (11.5-14.5); WHITE BLOOD COUNT 20.7 10^3/uL (4.0-10.0)
[2016-11-24 06:42] LABS: ADD MANUAL DIFFER YES; DIFF SLIDE NUMBER 7; POS COUNT POS FLAG; POSITIVE DIFF POS FLAG; POSITIVE MORPH POS FLAG
[2016-11-24 06:58] LABS: INR 1.04
[2016-11-24 07:10] LABS: ALBUMIN 3.2 GM/DL (3.2-5.2); ALBUMIN/GLOBULIN RATIO 0.97 (1.00-1.93); ALKALINE PHOSPHATASE 50 U/L (45-117); ALT/SGPT 23 U/L (12-78); ANION GAP 8 MEQ/L (8-16); AST/SGOT 9 U/L (15-37); BILIRUBIN,TOTAL 0.5 MG/DL (0.2-1.0); BLOOD UREA NITROGEN 40 MG/DL (7-18); CALCIUM LEVEL 9.1 MG/DL (8.8-10.2); CARBON DIOXIDE LEVEL 25 MEQ/L (21-32); CHLORIDE LEVEL 103 MEQ/L (98-107); CREATININE FOR GFR 0.66 MG/DL (0.55-1.02); GLOMERULAR FILTRATION RATE > 60.0 (>39); GLUCOSE, FASTING 121 MG/DL (83-110); SODIUM LEVEL 136 MEQ/L (136-145); TOTAL PROTEIN 6.5 GM/DL (6.4-8.2)
[2016-11-24 07:21] LABS: TOXIC VACUOLATION 3+
[2016-11-24] MEDS ORDERED: PROHANCE 279.3MG/ML 15ML VIAL (A9576) As Ordered ONE (07:47)
[2016-11-24] MEDS: ADVAIR HFA 115/21MCG INHALER INH SCH ×3 (07:54→20:42)
[2016-11-24] MEDS: IRBESARTAN 150 MG TAB PO SCH ×2 (09:00→20:04)
[2016-11-24] MEDS: FERROUS GLUCONATE 324 MG TAB PO SCH (09:00)
[2016-11-24] MEDS: CALCIUM/VITAMIN D 500 MG TAB PO SCH ×2 (09:00→20:04)
[2016-11-24] MEDS: levETIRAcetam 250MG TABLET (KEPPRA) PO SCH ×2 (09:00→20:04)
[2016-11-24] MEDS: LORATADINE 10 MG TAB PO SCH (09:00)
[2016-11-24] MEDS: MIRALAX *UNIT DOSE* 17GM PACKET PO SCH (09:00)
[2016-11-24] MEDS: PANTOPRAZOLE 40MG TAB (PROTONIX) PO SCH (09:00)
[2016-11-24] MEDS: BISOPROLOL FUMARATE 5 MG TAB PO SCH ×2 (09:00→20:06)
[2016-11-24] MEDS: CYANOCOBALAMIN 500 MCG TAB PO SCH (09:00)
[2016-11-24] MEDS: NYSTATIN 100,000 UNITS/GM TOPICAL PWD 15 GM TOP SCH ×2 (09:00→21:42)
[2016-11-24] MEDS ORDERED: LIDOCAINE W/EPINEPHRINE 1% 20ML VIAL As Ordered ONE (09:46)
[2016-11-24] MEDS ORDERED: THROMBIN SOLN 20,000 UNITS KIT As Ordered ONE ×2 (09:46→13:55)
[2016-11-24] MEDS ORDERED: ROCURONIUM BROMIDE 50 MG/5 ML VIAL As Ordered ONE ×2 (10:11→13:22)
[2016-11-24] MEDS ORDERED: LIDOCAINE 2% INJ 100 MG/5 ML SDV (FOR ANES.) As Ordered ONE (10:11)
[2016-11-24] MEDS ORDERED: ONDANSETRON 4MG/2ML VIAL (J2405) As Ordered ONE (10:11)
[2016-11-24] MEDS ORDERED: PROPOFOL 200 MG/20 ML VIAL As Ordered ONE (10:11)
[2016-11-24] MEDS ORDERED: MIDAZOLAM INJ 2 MG/2 ML VIAL (J2250) As Ordered ONE (10:12)
[2016-11-24] MEDS ORDERED: fentaNYL 100 MCG/2 ML INJECTION (J3010) As Ordered ONE ×2 (10:12→12:14)
[2016-11-24] MEDS ORDERED: REMIFENTANIL 1MG 3ML VIAL As Ordered ONE ×2 (10:16→15:34)
[2016-11-24] MEDS ORDERED: dexameTHASONE 4 MG/ML 1ML VIAL (J1100) As Ordered ONE (11:35)
[2016-11-24 12:04] LABS: ABG BASE EXCESS -2.5 (-2.0-2.0); ABG HCO3 21.3 MEQ/L (22.0-26.0); ABG PARTIAL PRESSURE O2 71.2 mmHg (75.0-100.0); ABG STANDARD HCO3 22.3 MEQ/L (22.0-26.0); ABG TOTAL CO2 22.4 MEQ/L (23.0-31.0); ABG pH (ARTERIAL) 7.415 UNITS (7.350-7.450)
[2016-11-24] MEDS ORDERED: ePHEDrine SULFATE 25 MG/5 ML(5MG/ML) SYRINGE As Ordered ONE (12:48)
[2016-11-24] MEDS ORDERED: GLYCOPYRROLATE INJ 0.2 MG/ML 2 ML VIAL As Ordered ONE (12:49)
--- NOTE | 2016-11-24 14:33 | REP ---
MR BRAIN WITH CONTRAST: HISTORY: Left temporal lobe tumor. COMPARISON: 11/12/2016. A ring-enhancing mass with moderate heterogenous enhancement is present in the posterior left temporal lobe. The mass measures 2.1 cm in transverse by 3.9 cm in AP dimensions. There is mass effect with partial effacement of the posterior body and atrium of the left lateral ventricle. There is no midline shift. There is no hydrocephalus or extracerebral collection. IMPRESSION: Contrast enhanced MR of the brain was performed for the use with the [employer] navigation system. Signed by Elias Ruelas MD 11/24/2016 02:35 P
[2016-11-24] MEDS ORDERED: SUGAMMADEX SODIUM 500 MG/5 ML VIAL (BRIDION) As Ordered ONE (15:37)
[2016-11-24] MEDS ORDERED: HYDROmorphone HCL 2 MG/ML 1ML VIAL (J1170) As Ordered ONE (15:40)
[2016-11-24] MEDS ORDERED: KCL 20MEQ IN D5/.45NACL 1000ML As Ordered ONE (16:28)
[2016-11-24] MEDS ORDERED: ONDANSETRON 4MG/2ML VIAL (J2405) IV PRN (17:00)
[2016-11-24] MEDS ORDERED: LR 1,000 ML IV SCH (17:00)
[2016-11-24] MEDS ORDERED: HYDROmorphone HCL 1 MG/ML SYRINGE (J1170) IV PRN (17:00)
[2016-11-24] MEDS ORDERED: PERCOCET 5MG/325MG TAB PO PRN (17:00)
[2016-11-24] MEDS ORDERED: fentaNYL 100 MCG/2 ML INJECTION (J3010) IV PRN (17:00)
[2016-11-24] MEDS: KCL 20MEQ IN D5/0.45NS 1000ML 1,000 ML IV SCH (18:38)
--- NOTE | 2016-11-24 18:47 | RO ---
DATE OF PROCEDURE: 11/24/2016 PREOPERATIVE DIAGNOSES: Left temporal-parietal mass lesion with brain swelling. POSTOPERATIVE DIAGNOSES: Left temporal-parietal mass lesion with brain swelling. Frozen section report suggested glioblastoma. PROCEDURE: Stent-based frameless stereotactic left posterior temporal-parietal craniotomy with microsurgical resection of large mass, cranioplasty, and marked brain edema and swelling treated with the left lateral ventriculostomy. SURGEON: Marquise Jordan MD ARCHEOLOGY FACULTY MEMBER: None. ANESTHESIA: General. FINDINGS: Please see the recent hospital records for detailed preoperative evaluation and discussion. This patient recently underwent a stereotactic biopsy , though the pathologist suggested a larger piece of tissue for confirmatory diagnosis and I have been in touch with the pathologist as well as neuropathologist at [facility]. They do not recommend starting any kind of chemotherapy or radiation therapy without a bigger sample. The patient and family were aware of all options, risks, scope, expected outcome, sequelae, and complications of proposed procedure. They understood the grave outlook and understood no guarantees of any kind could be given. Patient and her family understood the risk of surgery include , paralysis, coma, meningitis, persistent or worsening or her symptoms and deficits, which included, dysphasia, right hemiparesis, ataxia, intermittent confusion, right homonomous hemianopsia , and bilateral hemisensory inattention amongst others. They understood the risk of surgery include loss of vision and/or all vital bodily functions, dependency on life support measures, persistent vegetative state, infection, bleeding, status epilepticus, seizure disorder, deep venous thrombosis (DVT), myocardial infarction (SC), pulmonary embolism (PE) and/or any catastrophic sequelae. The patient and family wished to proceed with the surgery. MRI scan with contrast was done and the data received from the computers and the MRI was then transferred into the [employer] System to get live navigation. DESCRIPTION OF PROCEDURE: Once in the operating room, general endotracheal anesthesia was given by the anesthesia service. The area of surgery was prepped and draped in the usual sterile fashion after positioning her head in a Dixon headrest using three-point skeletal fixation. After adequate prep and drape, using the live navigation, previous skin incision was extended slightly inferiorly and also arched back somewhat. There was some necrotic tissue at the site of the previous surgery and this was sent for pathological examination and culture. Another corey hole was created about 3 or 4 cm posterior and inferior to the original corey hole, which was used to do stereotactic biopsy and the craniotomy flap was raised. The dura was extremely tight and as it was opened, the brain expressed out of the wound. A small cortectomy was performed. Using Stealth Navigation, tumor mass was reached and the medial aspect of the tumor was reached and the lateral wall of the ventricle was opened which caused a huge amount of CSF gushed out which relaxed the brain very well. The necrotic and fibrotic tumor was encountered and most of it was removed using bipolar cautery in various sizes suction and dissectors. It appears if not all but gross total resection took place. Hemostasis was checked and secured. Blood loss was negligible, might be less than 30 mL. At this time, the wound was closed in anatomic layers. Cranioplasty was performed using two plates. The patient tolerated the procedure well and was sent to the recovery room in stable condition. At the time of this dictation, the patient was in the recovery room. She was very talkative, moving all limbs near equally and following commands, and had no symptoms. Operative findings were discussed with the patient's family in the waiting room. ANNITA
--- NOTE | 2016-11-24 19:22 | IPNPDOC ---
Subjective Date Seen The patient was seen on 11/24/16. Subjective Chief Complaint/HPI The patient is a 76-year-old female admitted with a reason for visit of Brain Mass. Events since last encounter Patient remains confused postoperatively. She responds to her name, but does not answer questions appropriately. General: Reports: ROS Unobtainable Objective Physical Examination General Exam: Positive: No Acute Distress, Other (responds to her name) Eye Exam: Positive: EOMI, Negative: Sclera icteric ENT Exam: Positive: Atraumatic (there is a staple over a well healing incision on her right frontal scalp, and a clean bandage over the left occipital scalp, no discharge or erythema) Neck Exam: Negative: Lymphadenopathy Chest Exam: Positive: Clear to auscultation (soft breath sounds, not labored) Heart Exam: Positive: Rate Normal, Regular Rhythm Abdomen Exam: Positive: Normal bowel sounds, Soft, Negative: Tenderness Neuro Exam: Positive: Normal Speech (she has more difficulty with word finding ) Psych Exam: Positive: Other (confused, does not answer appropriately to questions), Negative: Memory Intact, Oriented x 3 Assessment /Plan Problems (1) Brain mass Problem Specific Plan: Consult Specialist, Monitor Clinically, Repeat Labs Problem Text: 11/24/16:Postop: left posterior temporal-parietal craniotomy with resection of mass, cranioplasty, and left lateral ventriculostomy performed by Dr. Jordan. Awaiting pathology results. Patient comfortable after procedure. Remains confused. Pt transferred to ICU for care. 11/21/16: start Olanzapaine. Continue to wait on second opinion pathology at from [facility]. Discuss with neurosurgery Keppra dosing adjustment 11/20/16: awaiting results from [facility], may need further surgical intervention. Noting some MS and behavior changes. Will arrange for psychiatry eval for medical decision making capabilities and insight. Discussed case with patient's daughter Kait, who agrees with plan. ? behavior changes related to Keppra. Continue to wait for pathology Neurosurgery following Dr. Jordan has been consulted for a second opinion. Dr. Andres is out of town for a week. Dr. Jordan would like to wait until the official read of the brain biopsy is back before he makes a final decision that it's nondiagnostic; he recalls incidences where the frozen section has not been diagnostic but they were able to get a little more out of the fully fixed section to make a diagnosis. 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 There is an area of increased signal intensity in the medial left parietal lobe with associated mass effect. This is suspicious for a low grade glioma. Small vessel ischemic disease. Mild volume loss. CT Chest and Abd/pel were obtained to search for primary. CT Chest: 14 mm nodule in the anterior segment of the right lower lobe, not present on the comparison study. CT Abd/pel: No mass, adenopathy, or ascites. Chronic thickening of the terminal ileum, unchanged. Fat-containing ventral hernia, unchanged. Small hiatal hernia , unchanged. No lytic, blastic or destructive skeletal changes. Degenerative disc disease in the lumbar spine. Bilateral hip osteoarthritis, worse on the left. (2) Lung nodule Discussed With: Patient, Family with Pt Consent Problem Text: 11/24/2016: I reconfirmed this assessment with Dr. 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 (senior merchandiser) 11/19/16: Per Interventional Rad: most likely not a primary. Proceed with brain mass bx and pathology prior to lung nodule eval. 11/17/2016: Pulmonology, informal consult, advised against bronchoscopy. Recommends interventional to see if can get to nodule. Dr. Jordan is requesting that we strongly consider working up this lung nodule while she is in the hospital. He has a strong clinical suspicion that the brain lesion is metastatic. Additionally if she has a primary lung cancer it may change his recommendation to do an excisional bx of the brain lesion which almost assuredly leave her with some weakness and speech deficits. Tomorrow we should contact IR and/or Pulm to see whether CT guided bx or navigational bronchoscopy with bx is the best way to get a sample of this lesion. ------ CT Chest: 14 mm nodule in the anterior segment of the right lower lobe, not present on the comparison study. (3) Brain compression Status: Acute Response to Treatment: Improving Problem Specific Plan: Monitor Clinically Problem Text: 11/24/16 Dr. Jordan, brain edema and swelling treated with the left lateral ventriculostomy (4) HTN (hypertension) Status: Chronic Problem Specific Plan: Monitor Clinically Problem Text: 11/24/16 Avapro, Zebeta, Norvasc held for surgery. This may represent autoregulation in a swollen brain. (5) CAD (coronary artery disease) Status: Chronic Problem Specific Plan: Monitor Clinically Problem Text: 11/24/16 Per Neurosurgeon, Plavix to be held 72hrs after procedure (6) COPD (chronic obstructive pulmonary disease) Status: Chronic Problem Specific Plan: Monitor Clinically Problem Text: Stable (7) Hyperlipidemia Status: Chronic Problem Specific Plan: Monitor Clinically Problem Text: On Crestor. (8) Anemia Status: Chronic Problem Specific Plan: Monitor Clinically Problem Text: On Supplemental B12 and Iron. (9) Leukocytosis Status: Acute Problem Text: steroid induced. no signs of infectious process. monitor. Plan/VTE VTE Prophylaxis Ordered?: Yes (TEDs and SCDs) VTE Exclusion Pharmacological: Bleeding Risk (intracranial procedure) Plan Anticipated Discharge: Home With Services (based on therapy's recommendation) Family Medicine Attending Note: I was present on site to supervise Dr. Jorgensen. We discussed the history and exam. I confirmed the narayan elements during my face-to- face encounter with the patient. We conferred on the assessment and plan; I agree with the note as documented. Ms. Santos was slightly more awake when I saw her. She was still quite confused regarding where she was and how long she needed to be there. Her daughters were at bedside. We'll continue to monitor. ( senior merchandiser) VS, I&O, 24H, Fishbone Vital Signs/I&O Vital Signs Date Time Temp Pulse Resp B/P (MAP) Pulse Ox O2 Delivery O2 Flow Rate FiO2 11/24/16 16:40 97.6 74 18 138/76 (96) 98 Nasal Cannula 2 I&O- Last 24 Hours up to 6 AM 11/25/16 05:59 Intake Total 1400 ml Output Total 925 ml Balance 475 ml Laboratory Data 24H LABS Laboratory Tests 2 11/24/16 06:12: Immature Granulocyte % (Auto) , White Blood Count 20.7H, Red Blood Count 4.64, Hemoglobin 12.6, Hematocrit 38.0, Mean Corpuscular Volume 81.9, Mean Corpuscular Hemoglobin 27.2, Mean Corpuscular Hemoglobin Concent 33.2, Red Cell Distribution Width 14.8H, Platelet Count 343, Monocytes # (Auto) , Nucleated Red Blood Cells % (auto) 0.0, Neutrophils 79H, Lymphocytes (Manual) 11L, Monocytes (Manual) 10H, Toxic Vacuolation 3+, Platelet Estimate NORMAL, Prothrombin Time 13.7, Prothromb Time International Ratio 1.04, Activated Partial Thromboplast Time 22.5L, Platelet Func Collagen/Epinephrine 92, Anion Gap 8, Glomerular Filtration Rate > 60.0, Blood Urea Nitrogen 40H, Creatinine 0.66, Sodium Level 136, Potassium Level 4.0, Chloride Level 103, Carbon Dioxide Level 25, Calcium Level 9.1, Aspartate Amino Transf (AST/SGOT) 9L, Alanine Aminotransferase (ALT/SGPT) 23, Alkaline Phosphatase 50, Total Bilirubin 0.5, Total Protein 6.5, Albumin 3.2, Albumin/Globulin Ratio 0.97L 11/24/16 11:53: Blood Gas Bicarbonate Standard 22.3, Arterial Blood pH 7.415, Arterial Blood Partial Pressure CO2 34.0L, Arterial Blood Partial Pressure O2 71.2L, Arterial Blood Total CO2 22.4L, Arterial Blood HCO3 21.3L, Arterial Blood Base Excess - 2.5L, Arterial Blood Oxygen Saturation 94.5L CBC/BMP Laboratory Tests 11/24/16 06:12 Red Blood Count 4.64, Mean Corpuscular Volume 81.9, Mean Corpuscular Hemoglobin 27.2, Mean Corpuscular Hemoglobin Concent 33.2, Red Cell Distribution Width 14.8 H, Monocytes # (Auto) , Calcium Level 9.1, Aspartate Amino Transf (AST/SGOT ) 9 L, Alanine Aminotransferase (ALT/SGPT) 23, Alkaline Phosphatase 50, Total Bilirubin 0.5, Total Protein 6.5, Albumin 3.2 Microbiology Microbiology 11/24/16 Wound Culture, Received Pending 11/24/16 Anaerobic Culture, Received Pending GME ATTESTATION GME ATTESTATION My preceptor for this patient encounter was physically present in the building during the encounter and was fully available. As needed, all aspects of the patient interview, examination, medical decision making process, and medical care plan development were reviewed and approved by the preceptor. Preceptor is aware and concurs with the plan as stated in the body of this note and will attest to such by his/her cosignature. CARRIE JORGENSEN DO Nov 24, 2016 5:15 pm Ge Mendoza MD Nov 24, 2016 10:50 pm
[2016-11-24] MEDS: OLANZapine 2.5MG TABLET PO SCH (20:04)
[2016-11-24] MEDS: ROSUVASTATIN 10 MG TAB (CRESTOR) PO SCH (20:05)
[2016-11-24] MEDS ORDERED: MORPHINE 2 MG/ML 1ML SYRINGE IV ONE (23:15)
[2016-11-25] VITALS (7 sets, daily range): BP systolic 117–162; BP diastolic 56–73
[2016-11-25] MEDS: ACETAMINOPH W/CODEINE #3 TAB UD PO PRN (00:08)
[2016-11-25] MEDS ORDERED: dexameTHASONE 20 MG/5 ML VIAL (J1100) IV ONE (01:00)
[2016-11-25] MEDS: KCL 20MEQ IN D5/0.45NS 1000ML 1,000 ML IV SCH ×2 (03:00→13:05)
[2016-11-25 04:35] LABS: MEAN CORPUSCULAR HGB CONC 32.6 g/dl (32.0-36.5); PLATELET COUNT, AUTOMATED 292 10^3/uL (150-450); POS COUNT POS FLAG; POSITIVE DIFF POS FLAG; POSITIVE MORPH POS FLAG; RED CELL DISTRIBUTION WIDTH 14.6 % (11.5-14.5); WHITE BLOOD COUNT 24.8 10^3/uL (4.0-10.0)
[2016-11-25 04:36] LABS: ADD MANUAL DIFFER YES; DIFF SLIDE NUMBER 85
[2016-11-25 04:59] LABS: ALBUMIN 2.8 GM/DL (3.2-5.2); ALBUMIN/GLOBULIN RATIO 0.97 (1.00-1.93); ALKALINE PHOSPHATASE 48 U/L (45-117); ALT/SGPT 25 U/L (12-78); ANION GAP 6 MEQ/L (8-16); AST/SGOT 13 U/L (15-37); BILIRUBIN,TOTAL 0.4 MG/DL (0.2-1.0); BLOOD UREA NITROGEN 20 MG/DL (7-18); CALCIUM LEVEL 8.3 MG/DL (8.8-10.2); CARBON DIOXIDE LEVEL 23 MEQ/L (21-32); CHLORIDE LEVEL 108 MEQ/L (98-107); CREATININE FOR GFR 0.68 MG/DL (0.55-1.02); GLOMERULAR FILTRATION RATE > 60.0 (>39); GLUCOSE, FASTING 169 MG/DL (83-110); POTASSIUM SERUM 4.5 MEQ/L (3.5-5.1); SODIUM LEVEL 137 MEQ/L (136-145); TOTAL PROTEIN 5.7 GM/DL (6.4-8.2)
[2016-11-25] MEDS ORDERED: dexameTHASONE 20 MG/5 ML VIAL (J1100) IV SCH (07:00)
[2016-11-25] MEDS: ADVAIR HFA 115/21MCG INHALER INH SCH ×2 (07:49→20:28)
[2016-11-25] MEDS: PANTOPRAZOLE 40MG TAB (PROTONIX) PO SCH (08:01)
[2016-11-25] MEDS: FERROUS GLUCONATE 324 MG TAB PO SCH (08:01)
[2016-11-25] MEDS: CALCIUM/VITAMIN D 500 MG TAB PO SCH ×2 (08:01→20:02)
[2016-11-25] MEDS: LORATADINE 10 MG TAB PO SCH (08:01)
[2016-11-25] MEDS: CYANOCOBALAMIN 500 MCG TAB PO SCH (08:01)
[2016-11-25] MEDS: MIRALAX *UNIT DOSE* 17GM PACKET PO SCH (08:02)
[2016-11-25] MEDS: levETIRAcetam 250MG TABLET (KEPPRA) PO SCH ×2 (08:02→20:01)
[2016-11-25] MEDS: BISOPROLOL FUMARATE 5 MG TAB PO SCH ×2 (08:02→20:03)
[2016-11-25] MEDS: NYSTATIN 100,000 UNITS/GM TOPICAL PWD 15 GM TOP SCH ×2 (08:03→20:03)
[2016-11-25] MEDS: IRBESARTAN 150 MG TAB PO SCH ×2 (08:04→20:02)
[2016-11-25] MEDS ORDERED: ISOVUE-370 76% 100ML VIAL (Q9967) As Ordered ONE (09:34)
--- NOTE | 2016-11-25 10:24 | REP ---
CT HEAD WITHOUT AND WITH CONTRAST: HISTORY: Left temporal lobe tumor. CONTRAST: Isovue 370, 75 mL. COMPARISON: CT 11/20/2016 and MRI 11/24/2016. The patient is status post left temporoparietal craniotomy. A previous left parietal lobe corey hole is present. A small amount of air, Gelfoam and hemorrhage are present in the posterior left temporal lobe at the site of the left temporal lobe tumor. There is a small amount of enhancing tissue along the lateral aspect of the surgical margin. Surrounding edema is present. There is mass effect with partial effacement of the body, atrium and occipital horn of the left lateral ventricle with minimal midline shift to the right. A small amount of pneumocephalus is present in the left lateral ventricle and overlying the left temporoparietal and right frontal lobes. There is no hydrocephalus. IMPRESSION: The patient is status post resection of a posterior left temporal lobe tumor. A small amount of enhancement is present along the lateral aspect of the surgical margin. This may represent residual tumor. A repeat examination is recommended for further evaluation. Signed by Elias Ruelas MD 11/25/2016 10:26 A
[2016-11-25] MEDS: dexameTHASONE 4 MG/ML 1ML VIAL (J1100) IV SCH ×2 (11:50→17:21)
--- NOTE | 2016-11-25 14:26 | IPNPDOC ---
Subjective Date Seen The patient was seen on 11/25/16. Subjective Chief Complaint/HPI The patient is a 76-year-old female admitted with a reason for visit of Brain Mass. Today is POD #1 after resection of the large mass. She is doing quite well and neurosurgery is pleased with her progress. She is alert and conversing well with her family. There are some pauses in her speech and some word finding , but they are not very disruptive in the flow of conversation and she is easily able to make her needs and wishes known. Constitutional: Denies: Fever ENT: Denies: Dysphagia Pulmonary: Denies: Dyspnea, Cough Cardiovascular: Denies: Chest Pain, Palpitations Gastrointestinal: Denies: Nausea, Vomiting Neurological: Reports: Change in speech, Denies: Seizures Objective Physical Examination General Exam: Positive: Alert, Cooperative, No Acute Distress Eye Exam: Positive: EOMI, Negative: Sclera icteric ENT Exam: Negative: Atraumatic (there is a staple over a well healing incision on her right frontal scalp, and a clean bandage over the left occipital scalp, no discharge or erythema) Neck Exam: Negative: Lymphadenopathy Chest Exam: Positive: Clear to auscultation (soft breath sounds, not labored) Heart Exam: Positive: Rate Normal, Regular Rhythm Abdomen Exam: Positive: Normal bowel sounds, Soft, Negative: Tenderness Neuro Exam: Negative: Normal Speech (she has some difficulty with word finding and occasional pauses in the aida of her speech) Psych Exam: Positive: Mental status NL (grossly) Assessment /Plan Problems (1) Brain mass Problem Specific Plan: Consult Specialist, Monitor Clinically, Repeat Labs Problem Text: 11/25/14: POD #1 - doing very well. Awake and alert. Interacting appropriately with nursing and family. Neurosurgery has changed her to q2h Neurochecks. She had a repeat scan today. She may be downgraded to PCU status today. 11/24/16:Postop: left posterior temporal-parietal craniotomy with resection of mass, cranioplasty, and left lateral ventriculostomy performed by Dr. Jordan. Awaiting pathology results. Patient comfortable after procedure. Remains confused. Pt transferred to ICU for care. 11/21/16: start Olanzapaine. Continue to wait on second opinion pathology at from [facility]. Discuss with neurosurgery Nikppra dosing adjustment 11/20/16: awaiting results from [facility], may need further surgical intervention. Noting some MS and behavior changes. Will arrange for psychiatry eval for medical decision making capabilities and insight. Discussed case with patient's daughter Kait, who agrees with plan. ? behavior changes related to Keppra. Continue to wait for pathology. Neurosurgery following. 11/15/16: Dr. Jordan has been consulted for a second opinion. Dr. Andres is out of town for a week. Dr. Jordan would like to wait until the official read of the brain biopsy is back before he makes a final decision that it's nondiagnostic; he recalls incidences where the frozen section has not been diagnostic but they were able to get a little more out of the fully fixed section to make a diagnosis. 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 There is an area of increased signal intensity in the medial left parietal lobe with associated mass effect. This is suspicious for a low grade glioma. Small vessel ischemic disease. Mild volume loss. CT Chest and Abd/pel were obtained to search for primary. CT Chest: 14 mm nodule in the anterior segment of the right lower lobe, not present on the comparison study. CT Abd/pel: No mass, adenopathy, or ascites. Chronic thickening of the terminal ileum, unchanged. Fat-containing ventral hernia, unchanged. Small hiatal hernia , unchanged. No lytic, blastic or destructive skeletal changes. Degenerative disc disease in the lumbar spine. Bilateral hip osteoarthritis, worse on the left. (2) Lung nodule Discussed With: Patient, Family with Pt Consent Problem Text: 11/24/2016: I reconfirmed this assessment with Dr. 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 (analytical sciences director) 11/19/16: Per Interventional Rad: most likely not a primary. Proceed with brain mass bx and pathology prior to lung nodule eval. 11/17/2016: Pulmonology, informal consult, advised against bronchoscopy. Recommends interventional to see if can get to nodule. Dr. Jordan is requesting that we strongly consider working up this lung nodule while she is in the hospital. He has a strong clinical suspicion that the brain lesion is metastatic. Additionally if she has a primary lung cancer it may change his recommendation to do an excisional bx of the brain lesion which almost assuredly leave her with some weakness and speech deficits. Tomorrow we should contact IR and/or Pulm to see whether CT guided bx or navigational bronchoscopy with bx is the best way to get a sample of this lesion. ------ CT Chest: 14 mm nodule in the anterior segment of the right lower lobe, not present on the comparison study. (3) Brain compression Status: Acute Response to Treatment: Improving Problem Specific Plan: Monitor Clinically Problem Text: Dr. Jordan, brain edema and swelling treated with the left lateral ventriculostomy on 11/24/16. Repeat imaging was done today. (4) HTN (hypertension) Status: Chronic Problem Specific Plan: Monitor Clinically Problem Text: Pressures remain a little elevated, but not dangerously high. Again I suspect that this is autoregulation in a swollen brain. (5) CAD (coronary artery disease) Status: Chronic Problem Specific Plan: Monitor Clinically Problem Text: 11/24/16 Per Neurosurgeon, Plavix to be held 72hrs after procedure (6) COPD (chronic obstructive pulmonary disease) Status: Chronic Problem Specific Plan: Monitor Clinically Problem Text: Stable (7) Hyperlipidemia Status: Chronic Problem Specific Plan: Monitor Clinically Problem Text: On Crestor. (8) Anemia Status: Chronic Problem Specific Plan: Monitor Clinically Problem Text: On Supplemental B12 and Iron. (9) Leukocytosis Status: Acute Problem Text: steroid induced. no signs of infectious process. monitor. Plan/VTE VTE Prophylaxis Ordered?: Yes (TEDs and SCDs) VTE Exclusion Pharmacological: Bleeding Risk (intracranial procedure) Plan Anticipated Discharge: Home With Services (based on therapy's recommendation) [facility]I&O Vital Signs Date Time Temp Pulse Resp B/P (MAP) Pulse Ox O2 Delivery O2 Flow Rate FiO2 11/25/16 12:00 97.5 65 18 117/56 (76) 97 Nasal Cannula 2.0 I&O- Last 24 Hours up to 6 AM 11/26/16 06:00 Intake Total 890 ml Output Total 1560 ml Balance -670 ml Laboratory Data 24H LABS Laboratory Tests 2 11/25/16 04:22: Immature Granulocyte % (Auto) , White Blood Count 24.8H, Red Blood Count 4.29, Hemoglobin 11.6L, Hematocrit 35.6L, Mean Corpuscular Volume 83.0, Mean Corpuscular Hemoglobin 27.0, Mean Corpuscular Hemoglobin Concent 32.6, Red Cell Distribution Width 14.6H, Platelet Count 292, Monocytes # (Auto) , Nucleated Red Blood Cells % (auto) 0.0, Neutrophils 88H, Lymphocytes (Manual) 5L, Monocytes (Manual) 7, Platelet Estimate NORMAL, Red Blood Cell Morphology NORMAL , Anion Gap 6L, Glomerular Filtration Rate > 60.0, Blood Urea Nitrogen 20H, Creatinine 0.68, Sodium Level 137, Potassium Level 4.5, Chloride Level 108H, Carbon Dioxide Level 23, Calcium Level 8.3L, Aspartate Amino Transf (AST/SGOT) 13L, Alanine Aminotransferase (ALT/SGPT) 25, Alkaline Phosphatase 48, Total Bilirubin 0.4, Total Protein 5.7L, Albumin 2.8L, Albumin/Globulin Ratio 0.97L CBC/BMP Laboratory Tests 11/25/16 04:22 Red Blood Count 4.29, Mean Corpuscular Volume 83.0, Mean Corpuscular Hemoglobin 27.0, Mean Corpuscular Hemoglobin Concent 32.6, Red Cell Distribution Width 14.6 H, Monocytes # (Auto) , Calcium Level 8.3 L, Aspartate Amino Transf (AST/ SGOT) 13 L, Alanine Aminotransferase (ALT/SGPT) 25, Alkaline Phosphatase 48, Total Bilirubin 0.4, Total Protein 5.7 L, Albumin 2.8 L Microbiology Microbiology 11/24/16 Wound Culture, Received Pending 11/24/16 Anaerobic Culture, Received Pending Ge Mendoza MD Nov 25, 2016 14:25
[2016-11-25] MEDS: ROSUVASTATIN 10 MG TAB (CRESTOR) PO SCH (20:02)
[2016-11-25] MEDS: OLANZapine 2.5MG TABLET PO SCH (20:03)
[2016-11-26] VITALS: BP 102/70
[2016-11-26] MEDS: dexameTHASONE 4 MG/ML 1ML VIAL (J1100) IV SCH ×5 (00:09→23:35)
[2016-11-26 04:00] VITALS: BP 150/70
[2016-11-26 04:54] LABS: MEAN CORPUSCULAR HEMOGLOBIN 26.8 pg (27.0-33.0); MEAN CORPUSCULAR HGB CONC 32.8 g/dl (32.0-36.5); MEAN CORPUSCULAR VOLUME 81.9 fl (80.0-96.0); PLATELET COUNT, AUTOMATED 307 10^3/uL (150-450); RED CELL DISTRIBUTION WIDTH 14.6 % (11.5-14.5); WHITE BLOOD COUNT 23.4 10^3/uL (4.0-10.0)
[2016-11-26 04:56] LABS: ADD MANUAL DIFFER YES; DIFF SLIDE NUMBER 92; POS COUNT POS FLAG; POSITIVE DIFF POS FLAG; POSITIVE MORPH POS FLAG
[2016-11-26 05:19] LABS: ALBUMIN 2.7 GM/DL (3.2-5.2); ANION GAP 7 MEQ/L (8-16); BLOOD UREA NITROGEN 14 MG/DL (7-18); CALCIUM LEVEL 9.6 MG/DL (8.8-10.2); CARBON DIOXIDE LEVEL 24 MEQ/L (21-32); CHLORIDE LEVEL 106 MEQ/L (98-107); CREATININE FOR GFR 0.41 MG/DL (0.55-1.02); GLOMERULAR FILTRATION RATE > 60.0 (>39); GLUCOSE, FASTING 144 MG/DL (83-110); PHOSPHORUS LEVEL 2.5 MG/DL (2.5-4.9); POTASSIUM SERUM 4.3 MEQ/L (3.5-5.1); SODIUM LEVEL 137 MEQ/L (136-145)
[2016-11-26 05:21] LABS: BANDS 1 % (< 11)
[2016-11-26] MEDS: ADVAIR HFA 115/21MCG INHALER INH SCH ×2 (07:59→20:45)
[2016-11-26 08:00] VITALS: BP 138/60
[2016-11-26] MEDS: MIRALAX *UNIT DOSE* 17GM PACKET PO SCH (08:32)
[2016-11-26] MEDS: IRBESARTAN 150 MG TAB PO SCH ×2 (08:33→20:35)
[2016-11-26] MEDS: LORATADINE 10 MG TAB PO SCH (08:33)
[2016-11-26] MEDS: PANTOPRAZOLE 40MG TAB (PROTONIX) PO SCH (08:33)
[2016-11-26] MEDS: FERROUS GLUCONATE 324 MG TAB PO SCH (08:33)
[2016-11-26] MEDS: levETIRAcetam 250MG TABLET (KEPPRA) PO SCH ×2 (08:33→20:36)
[2016-11-26] MEDS: CYANOCOBALAMIN 500 MCG TAB PO SCH (08:33)
[2016-11-26] MEDS: CALCIUM/VITAMIN D 500 MG TAB PO SCH ×2 (08:33→20:36)
[2016-11-26] MEDS: NYSTATIN 100,000 UNITS/GM TOPICAL PWD 15 GM TOP SCH ×2 (08:34→20:37)
[2016-11-26] MEDS: BISOPROLOL FUMARATE 5 MG TAB PO SCH ×2 (08:34→20:36)
--- NOTE | 2016-11-26 09:07 | IPNPDOC ---
Subjective Date Seen The patient was seen on 11/26/16. Subjective Chief Complaint/HPI The patient is a 76-year-old female admitted with a reason for visit of Brain Mass. Events since last encounter Pt states she is feeling better. She denies any current headaches. States she feels her word-finding and speech has been improving. Denies CP, SOB, Abd pain. Constitutional: Denies: Chills, Fever Pulmonary: Denies: Dyspnea Cardiovascular: Denies: Chest Pain Gastrointestinal: Denies: Abdominal Pain Neurological: Reports: Change in speech, Denies: Seizures Objective Physical Examination General Exam: Positive: Alert, Cooperative, No Acute Distress Eye Exam: Positive: EOMI, Negative: Sclera icteric ENT Exam: Negative: Atraumatic (there is a staple over a well healing incision on her right frontal scalp, and a clean bandage over the left occipital scalp, no discharge or erythema) Neck Exam: Negative: Lymphadenopathy Chest Exam: Positive: Clear to auscultation (soft breath sounds, not labored) Heart Exam: Positive: Rate Normal, Regular Rhythm Abdomen Exam: Positive: Normal bowel sounds, Soft, Negative: Tenderness Neuro Exam: Positive: Normal Speech (she has some difficulty with word finding and occasional pauses in the aida of her speech) Psych Exam: Positive: Mental status NL (grossly) Assessment /Plan Problems (1) Brain mass Problem Specific Plan: Consult Specialist, Monitor Clinically, Repeat Labs Problem Text: 11/26 - POD #2. Pt s/p left posterior temporal parietal craniotomy with resection of mass, cranioplasty and left ventriculostomy performed by Dr Jordan. Path pending. 11/25/14: POD #1 - doing very well. Awake and alert. Interacting appropriately with nursing and family. Neurosurgery has changed her to q2h Neurochecks. She had a repeat scan today. She may be downgraded to PCU status today. 11/24/16:Postop: left posterior temporal-parietal craniotomy with resection of mass, cranioplasty, and left lateral ventriculostomy performed by Dr. Jordan. Awaiting pathology results. Patient comfortable after procedure. Remains confused. Pt transferred to ICU for care. 11/21/16: start Olanzapaine. Continue to wait on second opinion pathology at from [facility]. Discuss with neurosurgery Nikppra dosing adjustment 11/20/16: awaiting results from [facility], may need further surgical intervention. Noting some MS and behavior changes. Will arrange for psychiatry eval for medical decision making capabilities and insight. Discussed case with patient's daughter Kait, who agrees with plan. ? behavior changes related to Keppra. Continue to wait for pathology. Neurosurgery following. 11/15/16: Dr. Jordan has been consulted for a second opinion. Dr. Andres is out of town for a week. Dr. Jordan would like to wait until the official read of the brain biopsy is back before he makes a final decision that it's nondiagnostic; he recalls incidences where the frozen section has not been diagnostic but they were able to get a little more out of the fully fixed section to make a diagnosis. 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 There is an area of increased signal intensity in the medial left parietal lobe with associated mass effect. This is suspicious for a low grade glioma. Small vessel ischemic disease. Mild volume loss. CT Chest and Abd/pel were obtained to search for primary. CT Chest: 14 mm nodule in the anterior segment of the right lower lobe, not present on the comparison study. CT Abd/pel: No mass, adenopathy, or ascites. Chronic thickening of the terminal ileum, unchanged. Fat-containing ventral hernia, unchanged. Small hiatal hernia , unchanged. No lytic, blastic or destructive skeletal changes. Degenerative disc disease in the lumbar spine. Bilateral hip osteoarthritis, worse on the left. (2) Lung nodule Discussed With: Patient, Family with Pt Consent Problem Text: 11/24/2016: I reconfirmed this assessment with Dr. 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 (training specialist) 11/19/16: Per Interventional Rad: most likely not a primary. Proceed with brain mass bx and pathology prior to lung nodule eval. 11/17/2016: Pulmonology, informal consult, advised against bronchoscopy. Recommends interventional to see if can get to nodule. Dr. Jordan is requesting that we strongly consider working up this lung nodule while she is in the hospital. He has a strong clinical suspicion that the brain lesion is metastatic. Additionally if she has a primary lung cancer it may change his recommendation to do an excisional bx of the brain lesion which almost assuredly leave her with some weakness and speech deficits. Tomorrow we should contact IR and/or Pulm to see whether CT guided bx or navigational bronchoscopy with bx is the best way to get a sample of this lesion. ------ CT Chest: 14 mm nodule in the anterior segment of the right lower lobe, not present on the comparison study. (3) Brain compression Status: Acute Response to Treatment: Improving Problem Specific Plan: Monitor Clinically Problem Text: Dr. Jordan, brain edema and swelling treated with the left lateral ventriculostomy on 11/24/16. Repeat imaging was done today. (4) HTN (hypertension) Status: Chronic Problem Specific Plan: Monitor Clinically Problem Text: Pressures remain a little elevated, but not dangerously high. Again I suspect that this is autoregulation in a swollen brain. (5) CAD (coronary artery disease) Status: Chronic Problem Specific Plan: Monitor Clinically Problem Text: 11/24/16 Per Neurosurgeon, Plavix to be held 72hrs after procedure (6) COPD (chronic obstructive pulmonary disease) Status: Chronic Problem Specific Plan: Monitor Clinically Problem Text: Stable (7) Hyperlipidemia Status: Chronic Problem Specific Plan: Monitor Clinically Problem Text: On Crestor. (8) Anemia Status: Chronic Problem Specific Plan: Monitor Clinically Problem Text: On Supplemental B12 and Iron. (9) Leukocytosis Status: Acute Problem Text: steroid induced. no signs of infectious process. monitor. Plan/VTE VTE Prophylaxis Ordered?: Yes (TEDs and SCDs) VTE Exclusion Pharmacological: Bleeding Risk (intracranial procedure) Plan Anticipated Discharge: Home With Services (based on therapy's recommendation) Family Medicine Attending Note: I saw and examined Ms. Santos, discussed with BRAD Das. Agree with their note as documented. Ms. Santos continues on her very positive rapidly improving trajectory. We are looking at the possibility of acute or subacute rehabilitation for her to help her regain as much strength and functionality as possible before she starts chemotherapy and radiation in 2-3 weeks. (training specialist) VS, I&O, 24H, Fishbone Vital Signs/I&O Vital Signs Date Time Temp Pulse Resp B/P (MAP) Pulse Ox O2 Delivery O2 Flow Rate FiO2 11/26/16 08:33 77 138/60 11/26/16 08:00 97.2 18 97 Room Air 11/26/16 04:00 2.0 I&O- Last 24 Hours up to 6 AM 11/27/16 06:00 Intake Total 240 ml Output Total 250 ml Balance -10 ml Laboratory Data 24H LABS Laboratory Tests 2 11/26/16 04:34: Immature Granulocyte % (Auto) , White Blood Count 23.4H, Red Blood Count 4.25, Hemoglobin 11.4L, Hematocrit 34.8L, Mean Corpuscular Volume 81.9, Mean Corpuscular Hemoglobin 26.8L, Mean Corpuscular Hemoglobin Concent 32.8, Red Cell Distribution Width 14.6H, Platelet Count 307, Monocytes # (Auto) , Nucleated Red Blood Cells % (auto) 0.0, Neutrophils 87H, Band Neutrophils 1, Lymphocytes (Manual) 3L, Monocytes (Manual) 8, Myelocytes 1H, Platelet Estimate NORMAL, Blood Urea Nitrogen 14, Creatinine 0.41L, Sodium Level 137, Potassium Level 4.3, Chloride Level 106, Carbon Dioxide Level 24, Anion Gap 7L, Glomerular Filtration Rate > 60.0, Calcium Level 9.6#, Phosphorus Level 2.5, Albumin 2.7L CBC/BMP Laboratory Tests 11/26/16 04:34 Red Blood Count 4.25, Mean Corpuscular Volume 81.9, Mean Corpuscular Hemoglobin 26.8 L, Mean Corpuscular Hemoglobin Concent 32.8, Red Cell Distribution Width 14.6 H, Monocytes # (Auto) , Anion Gap 7 L Microbiology Microbiology 11/24/16 Wound Culture, Received Pending 11/24/16 Anaerobic Culture, Received Pending Raciel Peck Nov 26, 2016 09:07 Ge Mendoza MD Nov 28, 2016 13:37
[2016-11-26 12:00] VITALS: BP 99/53
[2016-11-26 16:00] VITALS: BP 138/63
--- NOTE | 2016-11-26 18:19 | CR ---
DATE OF CONSULTATION: 11/26/2016 Dr. Jordan of neurosurgery requests medical oncology recommendations regarding postoperative management of resected presumptive glioblastoma. Ms. Santos is a 76-year-old man woman who developed a headache and productive aphasia in October. She was ultimately found on November 12 to have a ring-enhancing mass in the left temporal lobe consistent with a high-grade glioma as well as increased signal intensity in the left parietal lobe with associated mass effect suspicious for a low-grade glioma. Biopsy on November 14 showed hypercellular brain tissue and necrotic tissue consistent with glioma suggestive of primary brain neoplasm but without a definitive diagnosis. She underwent neurosurgical resection of the left temporal lobe mass on 11/24/[address] Jordan. Surgery was uneventful and pathology results are pending. Provisional pathology impression is of a glioblastoma multiforme. At the bedside, Savanna is chatty, surrounded by family, refers frequently to her catrachita. She speaks in full, clear sentences. Has no difficulty answering questions. She denies pain. She has been visited by Dr. Amezquita of radiation oncology and has an appointment to see him late in November. There is consideration for acute inpatient rehabilitation in her immediate postoperative recovery phase. IMPRESSION: Primary brain tumor, likely glioma, possibly glioblastoma multiforme, final pathology pending, in a well 76-year-old woman with usual for age medical comorbidities. Doing well postoperatively. RECOMMENDATIONS: 1. If GBM confirmed and patient doing well with ECOG PS 0-2, I will recommend standard postoperative chemoradiation for 6 weeks with oral chemotherapy, temozolomide, given daily for 42 days. This is established standard front-line treatment for resected glioblastoma, improving both progression free and overall survival. Because of its infiltrative nature there is significant recurrence risk even after completely resected glioblastoma. 2. Timetable for starting chemoradiation is usually 3-4 weeks after surgery to allow complete healing. The duration of combined treatment is usually about 6 weeks. At that point, restaging is performed. If no disease progression, it is typically recommended for the patient to go to have 6 months of temozolomide given days 1- 5 on a 28-day cycle; thus. essentially for 5 days out of every month, the patient would be taking temozolomide. She can be under medical oncology management during that time. Typical side effects and adverse effects of this drug include nausea, myelosuppression, thrombocytopenia, and are usually well managed with antiemetics and close followup of complete blood counts (CBCs). 3. Once the patient has completed her inpatient and rehabilitation care, she should be seen in our office, perhaps at the end of this month or the first week of December. Beverly Reilly, our oncology nurse navigator, can help coordinate that appointment. Her telephone number is . [facility]
[2016-11-26 20:00] VITALS: BP 123/58
[2016-11-26] MEDS: OLANZapine 2.5MG TABLET PO SCH (20:34)
[2016-11-26] MEDS: ROSUVASTATIN 10 MG TAB (CRESTOR) PO SCH (20:36)
[2016-11-27] VITALS: BP 137/64
[2016-11-27] MEDS: ACETAMINOPHEN 500 MG TAB PO PRN ×3 (03:27→21:33)
[2016-11-27 04:00] VITALS: BP 135/63
[2016-11-27 05:14] LABS: MEAN CORPUSCULAR HGB CONC 33.1 g/dl (32.0-36.5); MEAN CORPUSCULAR VOLUME 81.6 fl (80.0-96.0); PLATELET COUNT, AUTOMATED 298 10^3/uL (150-450); RED CELL DISTRIBUTION WIDTH 14.5 % (11.5-14.5); WHITE BLOOD COUNT 15.7 10^3/uL (4.0-10.0)
[2016-11-27 05:32] LABS: ADD MANUAL DIFFER YES; DIFF SLIDE NUMBER 70; POS COUNT POS FLAG; POSITIVE MORPH POS FLAG
[2016-11-27 05:38] LABS: ALBUMIN 2.5 GM/DL (3.2-5.2); ALBUMIN/GLOBULIN RATIO 0.78 (1.00-1.93); ALKALINE PHOSPHATASE 45 U/L (45-117); ALT/SGPT 19 U/L (12-78); ANION GAP 8 MEQ/L (8-16); AST/SGOT 6 U/L (15-37); BILIRUBIN,TOTAL 0.3 MG/DL (0.2-1.0); BLOOD UREA NITROGEN 27 MG/DL (7-18); CALCIUM LEVEL 9.4 MG/DL (8.8-10.2); CARBON DIOXIDE LEVEL 24 MEQ/L (21-32); CHLORIDE LEVEL 102 MEQ/L (98-107); CREATININE FOR GFR 0.62 MG/DL (0.55-1.02); GLUCOSE, FASTING 172 MG/DL (83-110); POTASSIUM SERUM 4.3 MEQ/L (3.5-5.1); SODIUM LEVEL 134 MEQ/L (136-145); TOTAL PROTEIN 5.7 GM/DL (6.4-8.2)
[2016-11-27 06:06] LABS: GLOMERULAR FILTRATION RATE > 60.0 (>39)
[2016-11-27] MEDS: dexameTHASONE 4 MG/ML 1ML VIAL (J1100) IV SCH ×3 (06:06→18:18)
[2016-11-27 06:44] LABS: ANISOCYTOSIS 1+; HYPERSEGMENTED POLYS 1+
--- NOTE | 2016-11-27 07:36 | RADONC ---
RADIATION ONCOLOGY PROGRESS NOTE DATE: 11/26/2016 CHART NUMBER: DIAGNOSIS: Glioblastoma multiforme. GRADE: 4. ECOG PERFORMANCE STATUS: 4. PROGRESS NOTE: I was called by Dr. Jordan today to see Ms. Santos in consultation. She has just undergone brain surgery. I personally reviewed the CT scans, both preop and postoperative with Dr. Jordan. In light of the fact that this patient has just had surgery, she will need to heal prior to any consideration of radiation. I have therefore set her up for full consultation in our office on , 12/04/2016, at 10 o'clock. I have asked her to bring family with her so we can discuss all the potential benefits and possible sequelae of external beam radiation therapy. The logistics of treatment planning, simulation and subsequent fractionated daily treatments. I did briefly answer a few of the patient's questions today, but once again, I await her to be more fully recovered prior to a lengthy discussion on such a serious matter. Once again, in summary, I have set this patient up for an official consultation as an outpatient in our department on , 12/04/2016. She has also been given our phone number in case she or the family have any questions in the meantime. cc: Marquise Jordan MD
[2016-11-27 08:00] VITALS: BP 142/79
[2016-11-27] MEDS: ADVAIR HFA 115/21MCG INHALER INH SCH ×2 (08:36→20:39)
[2016-11-27] MEDS: MIRALAX *UNIT DOSE* 17GM PACKET PO SCH (09:24)
[2016-11-27] MEDS: NYSTATIN 100,000 UNITS/GM TOPICAL PWD 15 GM TOP SCH ×2 (09:24→20:51)
[2016-11-27] MEDS: BISOPROLOL FUMARATE 5 MG TAB PO SCH ×2 (09:25→20:52)
[2016-11-27] MEDS: PANTOPRAZOLE 40MG TAB (PROTONIX) PO SCH (09:25)
[2016-11-27] MEDS: CYANOCOBALAMIN 500 MCG TAB PO SCH (09:25)
[2016-11-27] MEDS: CALCIUM/VITAMIN D 500 MG TAB PO SCH ×2 (09:25→20:50)
[2016-11-27] MEDS: FERROUS GLUCONATE 324 MG TAB PO SCH (09:25)
[2016-11-27] MEDS: LORATADINE 10 MG TAB PO SCH (09:26)
[2016-11-27] MEDS: levETIRAcetam 250MG TABLET (KEPPRA) PO SCH ×2 (09:26→20:49)
[2016-11-27] MEDS: IRBESARTAN 150 MG TAB PO SCH ×2 (09:26→20:50)
--- NOTE | 2016-11-27 10:54 | PMRNOTEPD ---
PMR Note 76-year-old right-handed white female status post tumor debulking from left temporal parietal region on 11/24/16. Prior stereotactic biopsy shows a glioma type pattern. Patient with right motor deficits participating in PT/OT with evaluations yesterday for 48 minutes. Per [employer] medical insurance claims specialist quoting the [facility] manual, that the patient needs to show the ability to be expected to tolerate 3 hrs per day of therapy for acute intensive rehabilitation consideration. I am recommending continue PT/OT and increase to bid 30 minute sessions or up the sessions to 45 minutes for PT and OT with notation of patient's tolerance. She has ambulated 70 feet yesterday suggesting that she is likely to tolerate more active therapy. I feel it is very important for this patient to be optimized before discharge to increase her skills, and appropriate equipment training to allow her to remain at home for as long as possible in light of a likely Glioblastoma tumor diagnosis. I believe that care should be viewed in a palliative perspective to optimize quality of life for this lady on her own definitions of life values. Usually, the amount of time at home with family and friends maintaining function is the most valued for patients with this likely type of tumor. FELICIANO BAKER MD Nov 27, 2016 10:54
[2016-11-27 12:00] VITALS: BP 145/67
[2016-11-27 16:30] VITALS: BP 146/69
--- NOTE | 2016-11-27 17:55 | IPNPDOC ---
Subjective Date Seen The patient was seen on 11/27/16. Subjective Chief Complaint/HPI The patient is a 76-year-old female admitted with a reason for visit of Brain Mass. Events since last encounter Patient was seen at bedside today. She was eating breakfast. She denies any pain today. She did have some complaints about her peripheral vision being unclear. Otherwise, she reports that the remainder of her visual field remains intact. Constitutional: Denies: Chills, Fever, Night Sweats Eyes: Reports: Vision change (decrease peripheral vision) ENT: Denies: Head Aches Skin: Reports: Other Pulmonary: Denies: Dyspnea, Cough Cardiovascular: Denies: Chest Pain, Palpitations, Orthopnea, Paroxysmal Noc. Dyspnea, Lt Headedness Gastrointestinal: Denies: Nausea, Vomiting, Abdominal Pain Genitourinary: Denies: Dysuria Psych: Reports: Mood Normal, Denies: Depression, Memory Issues Objective Physical Examination General Exam: Positive: Alert, Cooperative, No Acute Distress Eye Exam: Positive: EOMI, Negative: Sclera icteric ENT Exam: Positive: Atraumatic (there is a staple over a well healing incision on her right frontal scalp, and a clean bandage over the left occipital scalp, no discharge or erythema) Neck Exam: Negative: Lymphadenopathy Chest Exam: Positive: Clear to auscultation Heart Exam: Positive: Rate Normal, Regular Rhythm Abdomen Exam: Positive: Normal bowel sounds, Soft, Negative: Tenderness Neuro Exam: Positive: Normal Speech Psych Exam: Positive: Mental status NL (grossly) Assessment /Plan Problems (1) Brain mass Problem Specific Plan: Consult Specialist, Monitor Clinically, Repeat Labs Problem Text: 11/27- POD #3 s/p left posterior temporal parietal craniotomy with resection of mass, cranioplasty and left ventriculostomy performed by Dr Jordan. Path pending. Patient doing well today. Her speech and thought process seem appropriate today. Patient was seen by both oncology and radiation oncology today. They plan on discussing further treatment with the patient after she is discharged from the hospital and finishes rehabilitation. 11/26 - POD #2. Pt s/p left posterior temporal parietal craniotomy with resection of mass, cranioplasty and left ventriculostomy performed by Dr Jordan. Path pending. 11/25/14: POD #1 - doing very well. Awake and alert. Interacting appropriately with nursing and family. Neurosurgery has changed her to q2h Neurochecks. She had a repeat scan today. She may be downgraded to PCU status today. 11/24/16:Postop: left posterior temporal-parietal craniotomy with resection of mass, cranioplasty, and left lateral ventriculostomy performed by Dr. Jordan. Awaiting pathology results. Patient comfortable after procedure. Remains confused. Pt transferred to ICU for care. 11/21/16: start Olanzapaine. Continue to wait on second opinion pathology at from [facility]. Discuss with neurosurgery Keppra dosing adjustment 11/20/16: awaiting results from [facility], may need further surgical intervention. Noting some MS and behavior changes. Will arrange for psychiatry eval for medical decision making capabilities and insight. Discussed case with patient's daughter Kait, who agrees with plan. ? behavior changes related to Keppra. Continue to wait for pathology. Neurosurgery following. 11/15/16: Dr. Jordan has been consulted for a second opinion. Dr. Andres is out of town for a week. Dr. Jordan would like to wait until the official read of the brain biopsy is back before he makes a final decision that it's nondiagnostic; he recalls incidences where the frozen section has not been diagnostic but they were able to get a little more out of the fully fixed section to make a diagnosis. 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 There is an area of increased signal intensity in the medial left parietal lobe with associated mass effect. This is suspicious for a low grade glioma. Small vessel ischemic disease. Mild volume loss. CT Chest and Abd/pel were obtained to search for primary. CT Chest: 14 mm nodule in the anterior segment of the right lower lobe, not present on the comparison study. CT Abd/pel: No mass, adenopathy, or ascites. Chronic thickening of the terminal ileum, unchanged. Fat-containing ventral hernia, unchanged. Small hiatal hernia , unchanged. No lytic, blastic or destructive skeletal changes. Degenerative disc disease in the lumbar spine. Bilateral hip osteoarthritis, worse on the left. (2) Lung nodule Discussed With: Patient, Family with Pt Consent Problem Text: 11/24/2016: I reconfirmed this assessment with Dr. 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 (buck presser) 11/19/16: Per Interventional Rad: most likely not a primary. Proceed with brain mass bx and pathology prior to lung nodule eval. 11/17/2016: Pulmonology, informal consult, advised against bronchoscopy. Recommends interventional to see if can get to nodule. Dr. Jordan is requesting that we strongly consider working up this lung nodule while she is in the hospital. He has a strong clinical suspicion that the brain lesion is metastatic. Additionally if she has a primary lung cancer it may change his recommendation to do an excisional bx of the brain lesion which almost assuredly leave her with some weakness and speech deficits. Tomorrow we should contact IR and/or Pulm to see whether CT guided bx or navigational bronchoscopy with bx is the best way to get a sample of this lesion. ------ CT Chest: 14 mm nodule in the anterior segment of the right lower lobe, not present on the comparison study. (3) Brain compression Status: Acute Response to Treatment: Improving Problem Specific Plan: Monitor Clinically Problem Text: Dr. Jordan, brain edema and swelling treated with the left lateral ventriculostomy on 11/24/16. Repeat imaging was done today. (4) HTN (hypertension) Status: Chronic Problem Specific Plan: Monitor Clinically Problem Text: Pressures remain a little elevated, but not dangerously high. Again I suspect that this is autoregulation in a swollen brain. (5) CAD (coronary artery disease) Status: Chronic Problem Specific Plan: Monitor Clinically Problem Text: 11/24/16 Per Neurosurgeon, Plavix to be held 72hrs after procedure (6) COPD (chronic obstructive pulmonary disease) Status: Chronic Problem Specific Plan: Monitor Clinically Problem Text: Stable (7) Hyperlipidemia Status: Chronic Problem Specific Plan: Monitor Clinically Problem Text: On Crestor. (8) Anemia Status: Chronic Problem Specific Plan: Monitor Clinically Problem Text: On Supplemental B12 and Iron. (9) Leukocytosis Status: Acute Problem Text: steroid induced. no signs of infectious process. monitor. Plan/VTE VTE Prophylaxis Ordered?: Yes (TEDs and SCDs) VTE Exclusion Pharmacological: Bleeding Risk (intracranial procedure) Plan Anticipated Discharge: Home With Services (based on therapy's recommendation) Family Medicine Attending Note: I was present on site to supervise Norman Jorgensen DO (PGY-2). We discussed the history and exam. I confirmed the narayan elements during my [id number] encounter with the patient. We conferred on the assessment and plan; I agree with the note as documented. Ms. Santos continues to do very well. Unfortunately it appears her insurance will not cover any rehabilitation for her. This likely means that she'll be staying with us for strengthening until she is able to tolerate her chemotherapy and radiation. (buck presser ) VS, I&O, 24H, Fishbone Vital Signs/I&O Vital Signs Date Time Temp Pulse Resp B/P (MAP) Pulse Ox O2 Delivery O2 Flow Rate FiO2 11/27/16 16:30 99.3 77 19 146/69 (94) 96 Room Air 11/27/16 04:00 2.0 I&O- Last 24 Hours up to 6 AM 11/28/16 06:00 Intake Total 720 ml Output Total 1250 ml Balance -530 ml Laboratory Data 24H LABS Laboratory Tests 2 11/27/16 04:58: Immature Granulocyte % (Auto) , Nucleated Red Blood Cells % (auto) 0.0, Neutrophils 89H, Lymphocytes (Manual) 5L, Monocytes (Manual) 2, Hypersegmented Polys 1+, Atypical Lymphocytes 4, Platelet Estimate NORMAL, Anisocytosis 1+, Anion Gap 8, Glomerular Filtration Rate > 60.0, Blood Urea Nitrogen 27#H, Creatinine 0.62#, Sodium Level 134L, Potassium Level 4.3, Chloride Level 102, Carbon Dioxide Level 24, Calcium Level 9.4, Aspartate Amino Transf (AST/SGOT) 6L , Alanine Aminotransferase (ALT/SGPT) 19, Alkaline Phosphatase 45, Total Bilirubin 0.3, Total Protein 5.7L, Albumin 2.5L, Albumin/Globulin Ratio 0.78L CBC/BMP Laboratory Tests 11/27/16 04:58 Red Blood Count 4.03, Mean Corpuscular Volume 81.6, Mean Corpuscular Hemoglobin 27.0, Mean Corpuscular Hemoglobin Concent 33.1, Red Cell Distribution Width 14.5 , Calcium Level 9.4, Aspartate Amino Transf (AST/SGOT) 6 L, Alanine Aminotransferase (ALT/SGPT) 19, Alkaline Phosphatase 45, Total Bilirubin 0.3, Total Protein 5.7 L, Albumin 2.5 L Microbiology Microbiology 11/24/16 Wound Culture - Final, Complete 11/24/16 Anaerobic Culture - Final, Complete NORMAN JORGENSEN DO Nov 27, 2016 17:55 Ge Mendoza MD Nov 28, 2016 13:43
[2016-11-27 20:00] VITALS: BP 121/94
[2016-11-27] MEDS: ROSUVASTATIN 10 MG TAB (CRESTOR) PO SCH (20:49)
[2016-11-27] MEDS: OLANZapine 2.5MG TABLET PO SCH (20:51)
[2016-11-28] VITALS (8 sets, daily range): BP systolic 103–156; BP diastolic 57–69
[2016-11-28] MEDS: dexameTHASONE 4 MG/ML 1ML VIAL (J1100) IV SCH ×5 (00:07→23:44)
[2016-11-28] MEDS: ACETAMINOPHEN 500 MG TAB PO PRN ×3 (05:44→23:44)
[2016-11-28] MEDS: IRBESARTAN 150 MG TAB PO SCH ×2 (09:00→21:51)
[2016-11-28] MEDS: ADVAIR HFA 115/21MCG INHALER INH SCH ×2 (09:06→19:30)
[2016-11-28] MEDS: CYANOCOBALAMIN 500 MCG TAB PO SCH (09:33)
[2016-11-28] MEDS: MIRALAX *UNIT DOSE* 17GM PACKET PO SCH (09:33)
[2016-11-28] MEDS: CALCIUM/VITAMIN D 500 MG TAB PO SCH ×2 (09:33→21:51)
[2016-11-28] MEDS: LORATADINE 10 MG TAB PO SCH (09:34)
[2016-11-28] MEDS: levETIRAcetam 250MG TABLET (KEPPRA) PO SCH ×2 (09:34→21:51)
[2016-11-28] MEDS: PANTOPRAZOLE 40MG TAB (PROTONIX) PO SCH (09:34)
[2016-11-28] MEDS: BISOPROLOL FUMARATE 5 MG TAB PO SCH ×2 (09:35→21:52)
[2016-11-28] MEDS: FERROUS GLUCONATE 324 MG TAB PO SCH (09:35)
[2016-11-28] MEDS: NYSTATIN 100,000 UNITS/GM TOPICAL PWD 15 GM TOP SCH ×2 (09:36→21:00)
--- NOTE | 2016-11-28 19:42 | IPNPDOC ---
Subjective Date Seen The patient was seen on 11/28/16. Subjective Chief Complaint/HPI The patient is a 76-year-old female admitted with a reason for visit of Brain Mass. Events since last encounter Patient was examined this morning. Patient was eating breakfast in bed at the time. Patient reports that her peripheral vision had improved today. She remains comfortable. Patient was concerned that she did have a bowel movement since her operation, but she had a bowel movement yesterday according to nursing records. Constitutional: Denies: Chills, Fever, Night Sweats Eyes: Reports: Vision change (decreased peripheral vision, resolving) ENT: Denies: Head Aches, Ear Pain, Dysphagia Pulmonary: Denies: Dyspnea, Cough Cardiovascular: Denies: Chest Pain, Palpitations, Orthopnea, Paroxysmal Noc. Dyspnea, Lt Headedness Gastrointestinal: Denies: Nausea, Vomiting, Abdominal Pain, Diarrhea, Constipation Genitourinary: Denies: Dysuria, Frequency, Incontinence, Retention Objective Physical Examination General Exam: Positive: Alert, Cooperative, No Acute Distress Eye Exam: Positive: EOMI, Negative: Sclera icteric ENT Exam: Positive: Atraumatic (there is a staple over a well healing incision on her right frontal scalp, and a clean bandage over the left occipital scalp, no discharge or erythema) Neck Exam: Negative: Lymphadenopathy Chest Exam: Positive: Clear to auscultation Heart Exam: Positive: Rate Normal, Regular Rhythm Abdomen Exam: Positive: Normal bowel sounds, Soft, Negative: Tenderness Neuro Exam: Positive: Normal Speech Psych Exam: Positive: Mental status NL (grossly), Other (speech worse than yesterday, some word searching. ), Negative: Memory Intact (some deficits with short term memory) Assessment /Plan Problems (1) Brain mass Problem Specific Plan: Consult Specialist, Monitor Clinically, Repeat Labs Problem Text: 11/28 POD # 4. Pathology is pending. Patient continues to have therapy. Her speech and thought process seem appropriate today, although slightly worse than yesterday with some word searching. 11/27- POD #3 s/p left posterior temporal parietal craniotomy with resection of mass, cranioplasty and left ventriculostomy performed by Dr Jordan. Path pending. Patient doing well today. Her speech and thought process seem appropriate today. Patient was seen by both oncology and radiation oncology today. They plan on discussing further treatment with the patient after she is discharged from the hospital and finishes rehabilitation. 11/26 - POD #2. Pt s/p left posterior temporal parietal craniotomy with resection of mass, cranioplasty and left ventriculostomy performed by Dr Jordan. Path pending. 11/25/14: POD #1 - doing very well. Awake and alert. Interacting appropriately with nursing and family. Neurosurgery has changed her to q2h Neurochecks. She had a repeat scan today. She may be downgraded to PCU status today. 11/24/16:Postop: left posterior temporal-parietal craniotomy with resection of mass, cranioplasty, and left lateral ventriculostomy performed by Dr. Jordan. Awaiting pathology results. Patient comfortable after procedure. Remains confused. Pt transferred to ICU for care. 11/21/16: start Olanzapaine. Continue to wait on second opinion pathology at from [facility]. Discuss with neurosurgery Keppra dosing adjustment 11/20/16: awaiting results from [facility], may need further surgical intervention. Noting some MS and behavior changes. Will arrange for psychiatry eval for medical decision making capabilities and insight. Discussed case with patient's daughter Kait, who agrees with plan. ? behavior changes related to Keppra. Continue to wait for pathology. Neurosurgery following. 11/15/16: Dr. Jordan has been consulted for a second opinion. Dr. Andres is out of town for a week. Dr. Jordan would like to wait until the official read of the brain biopsy is back before he makes a final decision that it's nondiagnostic; he recalls incidences where the frozen section has not been diagnostic but they were able to get a little more out of the fully fixed section to make a diagnosis. 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 There is an area of increased signal intensity in the medial left parietal lobe with associated mass effect. This is suspicious for a low grade glioma. Small vessel ischemic disease. Mild volume loss. CT Chest and Abd/pel were obtained to search for primary. CT Chest: 14 mm nodule in the anterior segment of the right lower lobe, not present on the comparison study. CT Abd/pel: No mass, adenopathy, or ascites. Chronic thickening of the terminal ileum, unchanged. Fat-containing ventral hernia, unchanged. Small hiatal hernia , unchanged. No lytic, blastic or destructive skeletal changes. Degenerative disc disease in the lumbar spine. Bilateral hip osteoarthritis, worse on the left. (2) Lung nodule Discussed With: Patient, Family with Pt Consent Problem Text: 11/24/2016: I reconfirmed this assessment with Dr. 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 Proceed with brain mass bx and pathology prior to lung nodule eval. 11/17/2016: Pulmonology, informal consult, advised against bronchoscopy. Recommends interventional to see if can get to nodule. Dr. Jordan is requesting that we strongly consider working up this lung nodule while she is in the hospital. He has a strong clinical suspicion that the brain lesion is metastatic. Additionally if she has a primary lung cancer it may change his recommendation to do an excisional bx of the brain lesion which almost assuredly leave her with some weakness and speech deficits. Tomorrow we should contact IR and/or Pulm to see whether CT guided bx or navigational bronchoscopy with bx is the best way to get a sample of this lesion. ------ CT Chest: 14 mm nodule in the anterior segment of the right lower lobe, not present on the comparison study. (3) Brain compression Status: Acute Response to Treatment: Improving Problem Specific Plan: Monitor Clinically Problem Text: Dr. Jordan, brain edema and swelling treated with the left lateral ventriculostomy on 11/24/16. Repeat imaging was done today. (4) HTN (hypertension) Status: Chronic Problem Specific Plan: Monitor Clinically Problem Text: Pressures remain a little elevated, but not dangerously high. Again I suspect that this is autoregulation in a swollen brain. (5) CAD (coronary artery disease) Status: Chronic Problem Specific Plan: Monitor Clinically Problem Text: 11/24/16 Per Neurosurgeon, Plavix to be held 72hrs after procedure (6) COPD (chronic obstructive pulmonary disease) Status: Chronic Problem Specific Plan: Monitor Clinically Problem Text: Stable (7) Hyperlipidemia Status: Chronic Problem Specific Plan: Monitor Clinically Problem Text: On Crestor. (8) Anemia Status: Chronic Problem Specific Plan: Monitor Clinically Problem Text: On Supplemental B12 and Iron. (9) Leukocytosis Status: Acute Problem Text: steroid induced. no signs of infectious process. monitor. Plan/VTE VTE Prophylaxis Ordered?: Yes (TEDs and SCDs) VTE Exclusion Pharmacological: Bleeding Risk (intracranial procedure) Plan Anticipated Discharge: Home With Services (based on therapy's recommendation) Family Medicine Attending Note: I was present on site to supervise Norman Jorgensen DO (PGY-2). We discussed the history and exam. I confirmed the narayan elements during my [id number] encounter with the patient. We conferred on the assessment and plan; I agree with the note as documented. 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
[2016-11-28] MEDS: ROSUVASTATIN 10 MG TAB (CRESTOR) PO SCH (21:52)
[2016-11-28] MEDS: OLANZapine 2.5MG TABLET PO SCH (21:53)
[2016-11-29 04:00] VITALS: BP 108/79
[2016-11-29] MEDS: dexameTHASONE 4 MG/ML 1ML VIAL (J1100) IV SCH ×3 (05:35→20:29)
[2016-11-29] MEDS: ADVAIR HFA 115/21MCG INHALER INH SCH ×2 (07:22→19:27)
[2016-11-29 07:30] VITALS: BP 126/59
[2016-11-29] MEDS: levETIRAcetam 250MG TABLET (KEPPRA) PO SCH ×2 (08:43→20:30)
[2016-11-29] MEDS: CYANOCOBALAMIN 500 MCG TAB PO SCH (08:43)
[2016-11-29] MEDS: LORATADINE 10 MG TAB PO SCH (08:43)
[2016-11-29] MEDS: PANTOPRAZOLE 40MG TAB (PROTONIX) PO SCH (08:43)
[2016-11-29] MEDS: FERROUS GLUCONATE 324 MG TAB PO SCH (08:44)
[2016-11-29] MEDS: IRBESARTAN 150 MG TAB PO SCH ×2 (08:44→20:34)
[2016-11-29] MEDS: CALCIUM/VITAMIN D 500 MG TAB PO SCH ×2 (08:45→20:30)
[2016-11-29] MEDS: BISOPROLOL FUMARATE 5 MG TAB PO SCH ×2 (08:45→20:32)
[2016-11-29] MEDS: MIRALAX *UNIT DOSE* 17GM PACKET PO SCH (08:46)
[2016-11-29] MEDS: NYSTATIN 100,000 UNITS/GM TOPICAL PWD 15 GM TOP SCH ×2 (09:00→23:27)
--- NOTE | 2016-11-29 10:51 | REP ---
CT HEAD WITHOUT CONTRAST: HISTORY: Left temporal lobe tumor. COMPARISON: 11/25/2016 The patient is status post left temporoparietal craniotomy. A small amount of air, Gelfoam, and hemorrhage are present in the left temporal lobe at the surgical site. This is decreased compared to the previous study. Surrounding vasogenic edema is present that is decreased compared to the previous study. There is mass effect with partial effacement of the posterior body, atrium, and occipital horn of the left lateral ventricle. This is decreased compared to the _previous study__. There is no hydrocephalus. A 4 mm acute subdural hematoma is present overlying the posterior left temporal lobe. Pneumocephalus is present over the left frontal convexity that is decreased compared to the previous study. The visualized sinuses are clear. IMPRESSION: The patient is status post resection of a left temporal lobe tumor. There is decreased hemorrhage, pneumocephalus, and mass effect at the surgical site. A small 4 mm acute subdural hematoma is present overlying the posterior left temporal lobe. There is no midline shift. Incomplete MTDD
[2016-11-29 12:00] VITALS: BP 112/72
[2016-11-29 16:00] VITALS: BP 110/70
[2016-11-29 17:55] VITALS: BP 125/66
[2016-11-29] MEDS ORDERED: BISACODYL 10 MG SUPP PR PRN (20:00)
[2016-11-29] MEDS: ROSUVASTATIN 10 MG TAB (CRESTOR) PO SCH (20:31)
[2016-11-29] MEDS: OLANZapine 2.5MG TABLET PO SCH (20:33)
[2016-11-29 22:00] VITALS: BP 120/57
--- NOTE | 2016-11-29 22:36 | IPNPDOC ---
Subjective Date Seen The patient was seen on 11/29/16. Subjective Chief Complaint/HPI The patient is a 76-year-old female admitted with a reason for visit of Brain Mass. Events since last encounter Patient reports that she is doing well this morning. She had some tenderness over the incision site on the left side of her head this morning when she woke up. The pain has since resolved. Patient continues to have a good appetite. She continues to be afebrile. She denies any dysuria. She states that she has not had a bowel movement in several days. Constitutional: Denies: Chills, Fever, Night Sweats Cardiovascular: Denies: Chest Pain, Palpitations, Orthopnea, Paroxysmal Noc. Dyspnea, Lt Headedness Gastrointestinal: Denies: Nausea, Vomiting, Abdominal Pain, Diarrhea, Constipation Genitourinary: Denies: Dysuria, Frequency, Incontinence, Retention Musculoskeletal: Denies: Neck Pain, Back Pain, Joint Pain, Muscle Pain, Spasms Objective Physical Examination General Exam: Positive: Alert, Cooperative, No Acute Distress Eye Exam: Positive: EOMI, Negative: Sclera icteric ENT Exam: Positive: Atraumatic (there is a staple over a well healing incision on her right frontal scalp, and a clean bandage over the left occipital scalp, no discharge or erythema) Neck Exam: Negative: Lymphadenopathy Chest Exam: Positive: Clear to auscultation Heart Exam: Positive: Rate Normal, Regular Rhythm Abdomen Exam: Positive: Normal bowel sounds, Soft, Negative: Tenderness Neuro Exam: Positive: Normal Speech Psych Exam: Positive: Mental status NL (grossly), Other (speech worse than yesterday, some word searching. ), Negative: Memory Intact (some deficits with short term memory) Assessment /Plan Problems (1) Brain mass Problem Specific Plan: Consult Specialist, Monitor Clinically, Repeat Labs Problem Text: 08/29/2016- POD #5. Pathology is still pending. Patient is continuing with physical therapy. Her thought process and speech are improved from yesterday. Her speech is more fluid. Her thoughts seem more organized. Patient states that she recognizes me today, although she did not recall my name. 11/28 POD # 4. Pathology is pending. Patient continues to have therapy. Her speech and thought process seem appropriate today, although slightly worse than yesterday with some word searching. 11/27- POD #3 s/p left posterior temporal parietal craniotomy with resection of mass, cranioplasty and left ventriculostomy performed by Dr Jordan. Path pending. Patient doing well today. Her speech and thought process seem appropriate today. Patient was seen by both oncology and radiation oncology today. They plan on discussing further treatment with the patient after she is discharged from the hospital and finishes rehabilitation. 11/26 - POD #2. Pt s/p left posterior temporal parietal craniotomy with resection of mass, cranioplasty and left ventriculostomy performed by Dr Jordan. Path pending. 11/25/14: POD #1 - doing very well. Awake and alert. Interacting appropriately with nursing and family. Neurosurgery has changed her to q2h Neurochecks. She had a repeat scan today. She may be downgraded to PCU status today. 11/24/16:Postop: left posterior temporal-parietal craniotomy with resection of mass, cranioplasty, and left lateral ventriculostomy performed by Dr. Jordan. Awaiting pathology results. Patient comfortable after procedure. Remains confused. Pt transferred to ICU for care. 11/21/16: start Olanzapaine. Continue to wait on second opinion pathology at from [facility]. Discuss with neurosurgery Keppra dosing adjustment 11/20/16: awaiting results from [facility], may need further surgical intervention. Noting some MS and behavior changes. Will arrange for psychiatry eval for medical decision making capabilities and insight. Discussed case with patient's daughter Kait, who agrees with plan. ? behavior changes related to Keppra. Continue to wait for pathology. Neurosurgery following. 11/15/16: Dr. Jordan has been consulted for a second opinion. Dr. Andres is out of town for a week. Dr. Jordan would like to wait until the official read of the brain biopsy is back before he makes a final decision that it's nondiagnostic; he recalls incidences where the frozen section has not been diagnostic but they were able to get a little more out of the fully fixed section to make a diagnosis. 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 There is an area of increased signal intensity in the medial left parietal lobe with associated mass effect. This is suspicious for a low grade glioma. Small vessel ischemic disease. Mild volume loss. CT Chest and Abd/pel were obtained to search for primary. CT Chest: 14 mm nodule in the anterior segment of the right lower lobe, not present on the comparison study. CT Abd/pel: No mass, adenopathy, or ascites. Chronic thickening of the terminal ileum, unchanged. Fat-containing ventral hernia, unchanged. Small hiatal hernia , unchanged. No lytic, blastic or destructive skeletal changes. Degenerative disc disease in the lumbar spine. Bilateral hip osteoarthritis, worse on the left. (2) Lung nodule Discussed With: Patient, Family with Pt Consent Problem Text: 11/24/2016: I reconfirmed this assessment with Dr. 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 Proceed with brain mass bx and pathology prior to lung nodule eval. 11/17/2016: Pulmonology, informal consult, advised against bronchoscopy. Recommends interventional to see if can get to nodule. Dr. Jordan is requesting that we strongly consider working up this lung nodule while she is in the hospital. He has a strong clinical suspicion that the brain lesion is metastatic. Additionally if she has a primary lung cancer it may change his recommendation to do an excisional bx of the brain lesion which almost assuredly leave her with some weakness and speech deficits. Tomorrow we should contact IR and/or Pulm to see whether CT guided bx or navigational bronchoscopy with bx is the best way to get a sample of this lesion. ------ CT Chest: 14 mm nodule in the anterior segment of the right lower lobe, not present on the comparison study. (3) Brain compression Status: Acute Response to Treatment: Improving Problem Specific Plan: Monitor Clinically Problem Text: Dr. Jordan, brain edema and swelling treated with the left lateral ventriculostomy on 11/24/16. Repeat imaging was done today. (4) HTN (hypertension) Status: Chronic Problem Specific Plan: Monitor Clinically Problem Text: Pressures remain a little elevated, but not dangerously high. Again I suspect that this is autoregulation in a swollen brain. (5) CAD (coronary artery disease) Status: Chronic Problem Specific Plan: Monitor Clinically Problem Text: 11/24/16 Per Neurosurgeon, Plavix to be held 72hrs after procedure (6) COPD (chronic obstructive pulmonary disease) Status: Chronic Problem Specific Plan: Monitor Clinically Problem Text: Stable (7) Hyperlipidemia Status: Chronic Problem Specific Plan: Monitor Clinically Problem Text: On Crestor. (8) Anemia Status: Chronic Problem Specific Plan: Monitor Clinically Problem Text: On Supplemental B12 and Iron. (9) Leukocytosis Status: Acute Problem Text: steroid induced. no signs of infectious process. monitor. Plan/VTE VTE Prophylaxis Ordered?: Yes (TEDs and SCDs) VTE Exclusion Pharmacological: Bleeding Risk (intracranial procedure) Plan Anticipated Discharge: Home With Services (based on therapy's recommendation) VS, I&O, 24H, Fishbone Vital Signs/I&O Vital Signs Date Time Temp Pulse Resp B/P (MAP) Pulse Ox O2 Delivery O2 Flow Rate FiO2 11/29/16 08:46 70 126/59 11/29/16 07:30 98.2 20 95 Room Air 11/28/16 20:00 2.0 Laboratory Data Microbiology Microbiology 11/24/16 Wound Culture - Final, Complete 11/24/16 Anaerobic Culture - Final, Complete GME ATTESTATION GME ATTESTATION My preceptor for this patient encounter was physically present in the building during the encounter and was fully available. As needed, all aspects of the patient interview, examination, medical decision making process, and medical care plan development were reviewed and approved by the preceptor. Preceptor is aware and concurs with the plan as stated in the body of this note and will attest to such by his/her cosignature. ATTENDING NOTE Family Medicine Attending Note: I was present on site to supervise Norman Jorgensen DO (PGY-2). We discussed the history and exam. I confirmed the narayan elements during my [id number] encounter with the patient. We conferred on the assessment and plan; I agree with the note as documented. 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
[2016-11-29] MEDS: ACETAMINOPHEN 500 MG TAB PO PRN (23:27)
[2016-11-30] MEDS: dexameTHASONE 4 MG/ML 1ML VIAL (J1100) IV SCH ×3 (04:15→20:17)
[2016-11-30 06:00] VITALS: BP 127/76
[2016-11-30] MEDS: ADVAIR HFA 115/21MCG INHALER INH SCH ×2 (07:28→19:39)
[2016-11-30] MEDS: BISOPROLOL FUMARATE 5 MG TAB PO SCH ×2 (09:53→20:19)
[2016-11-30] MEDS: LORATADINE 10 MG TAB PO SCH (09:53)
[2016-11-30] MEDS: PANTOPRAZOLE 40MG TAB (PROTONIX) PO SCH (09:54)
[2016-11-30] MEDS: FERROUS GLUCONATE 324 MG TAB PO SCH (09:54)
[2016-11-30] MEDS: IRBESARTAN 150 MG TAB PO SCH ×2 (09:54→20:18)
[2016-11-30] MEDS: CALCIUM/VITAMIN D 500 MG TAB PO SCH ×2 (09:55→20:18)
[2016-11-30] MEDS: levETIRAcetam 250MG TABLET (KEPPRA) PO SCH ×2 (09:55→20:18)
[2016-11-30] MEDS: CYANOCOBALAMIN 500 MCG TAB PO SCH (09:56)
[2016-11-30] MEDS: MIRALAX *UNIT DOSE* 17GM PACKET PO SCH (09:58)
[2016-11-30] MEDS: NYSTATIN 100,000 UNITS/GM TOPICAL PWD 15 GM TOP SCH ×2 (09:58→23:37)
[2016-11-30 14:00] VITALS: BP 112/56
--- NOTE | 2016-11-30 16:27 | IPNPDOC ---
Subjective Date Seen The patient was seen on 11/30/16. Subjective Chief Complaint/HPI The patient is a 76-year-old female admitted with a reason for visit of Brain Mass. Events since last encounter Ms. Santos is doing well and visiting with multiple taoist friends when I saw her today. Nursing is concerned that her dressing hasn't been changed since her surgery on 11/24/16. She has no other acute concerns. General: Reports: Normal Appetite ENT: Denies: Head Aches Pulmonary: Denies: Cough Cardiovascular: Denies: Chest Pain, Palpitations Psych: Reports: Mood Normal Objective Physical Examination General Exam: Positive: Alert, Cooperative, No Acute Distress Eye Exam: Positive: EOMI, Negative: Sclera icteric ENT Exam: Positive: Atraumatic (there is a relatively clean bandage over the left occipital scalp, scant serous discharge) Neck Exam: Negative: Lymphadenopathy Chest Exam: Positive: Clear to auscultation Heart Exam: Positive: Rate Normal, Regular Rhythm Abdomen Exam: Positive: Normal bowel sounds, Soft, Negative: Tenderness Neuro Exam: Positive: Normal Speech Psych Exam: Positive: Mental status NL (grossly) Assessment /Plan Problems (1) Brain mass Problem Specific Plan: Consult Specialist, Monitor Clinically, Repeat Labs Problem Text: 08/30/16 - POD #6. Pathology still pending. Continue P/T and O/T as needed. The goal is strengthening and healing before chemo and radiation start. Dr. Jordan says it can start whenever the oncologists determine appropriate. She is ready from his perspective. 08/29/2016- POD #5. Pathology is still pending. Patient is continuing with physical therapy. Her thought process and speech are improved from yesterday. Her speech is more fluid. Her thoughts seem more organized. Patient states that she recognizes me today, although she did not recall my name. 11/28 POD # 4. Pathology is pending. Patient continues to have therapy. Her speech and thought process seem appropriate today, although slightly worse than yesterday with some word searching. 11/27- POD #3 s/p left posterior temporal parietal craniotomy with resection of mass, cranioplasty and left ventriculostomy performed by Dr Jordan. Path pending. Patient doing well today. Her speech and thought process seem appropriate today. Patient was seen by both oncology and radiation oncology today. They plan on discussing further treatment with the patient after she is discharged from the hospital and finishes rehabilitation. 11/26 - POD #2. Pt s/p left posterior temporal parietal craniotomy with resection of mass, cranioplasty and left ventriculostomy performed by Dr Jordan. Path pending. 11/25/14: POD #1 - doing very well. Awake and alert. Interacting appropriately with nursing and family. Neurosurgery has changed her to q2h Neurochecks. She had a repeat scan today. She may be downgraded to PCU status today. 11/24/16:Postop: left posterior temporal-parietal craniotomy with resection of mass, cranioplasty, and left lateral ventriculostomy performed by Dr. Jordan. Awaiting pathology results. Patient comfortable after procedure. Remains confused. Pt transferred to ICU for care. 11/21/16: start Olanzapaine. Continue to wait on second opinion pathology at from [facility]. Discuss with neurosurgery Keppra dosing adjustment 11/20/16: awaiting results from [facility], may need further surgical intervention. Noting some MS and behavior changes. Will arrange for psychiatry eval for medical decision making capabilities and insight. Discussed case with patient's daughter Kait, who agrees with plan. ? behavior changes related to Keppra. Continue to wait for pathology. Neurosurgery following. 11/15/16: Dr. Jordan has been consulted for a second opinion. Dr. Andres is out of town for a week. Dr. Jordan would like to wait until the official read of the brain biopsy is back before he makes a final decision that it's nondiagnostic; he recalls incidences where the frozen section has not been diagnostic but they were able to get a little more out of the fully fixed section to make a diagnosis. 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 There is an area of increased signal intensity in the medial left parietal lobe with associated mass effect. This is suspicious for a low grade glioma. Small vessel ischemic disease. Mild volume loss. CT Chest and Abd/pel were obtained to search for primary. CT Chest: 14 mm nodule in the anterior segment of the right lower lobe, not present on the comparison study. CT Abd/pel: No mass, adenopathy, or ascites. Chronic thickening of the terminal ileum, unchanged. Fat-containing ventral hernia, unchanged. Small hiatal hernia , unchanged. No lytic, blastic or destructive skeletal changes. Degenerative disc disease in the lumbar spine. Bilateral hip osteoarthritis, worse on the left. (2) Lung nodule Discussed With: Patient, Family with Pt Consent Problem Text: 11/24/2016: I reconfirmed this assessment with Dr. 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 (wel[employer]) 11/19/16: Per Interventional Rad: most likely not a primary. Proceed with brain mass bx and pathology prior to lung nodule eval. 11/17/2016: Pulmonology, informal consult, advised against bronchoscopy. Recommends interventional to see if can get to nodule. Dr. Jordan is requesting that we strongly consider working up this lung nodule while she is in the hospital. He has a strong clinical suspicion that the brain lesion is metastatic. Additionally if she has a primary lung cancer it may change his recommendation to do an excisional bx of the brain lesion which almost assuredly leave her with some weakness and speech deficits. Tomorrow we should contact IR and/or Pulm to see whether CT guided bx or navigational bronchoscopy with bx is the best way to get a sample of this lesion. ------ CT Chest: 14 mm nodule in the anterior segment of the right lower lobe, not present on the comparison study. (3) Brain compression Status: Acute Response to Treatment: Controlled Problem Specific Plan: Monitor Clinically Problem Text: Dr. Jordan, brain edema and swelling treated with the left lateral ventriculostomy on 11/24/16. (4) HTN (hypertension) Status: Chronic Problem Specific Plan: Monitor Clinically Problem Text: BP is well controlled today. Continue current regimen, monitor. (5) CAD (coronary artery disease) Status: Chronic Problem Specific Plan: Monitor Clinically Problem Text: Per Neurosurgeon, Plavix to be held 72hrs after procedure. It has been twice that time now, and she hasn't been restarted yet. Will try to clarify if she may have this back yet, or if there is still reason to hold this. (6) COPD (chronic obstructive pulmonary disease) Status: Chronic Problem Specific Plan: Monitor Clinically Problem Text: Stable (7) Hyperlipidemia Status: Chronic Problem Specific Plan: Monitor Clinically Problem Text: On Crestor. (8) Anemia Status: Chronic Problem Specific Plan: Monitor Clinically Problem Text: On Supplemental B12 and Iron. (9) Leukocytosis Status: Acute Problem Text: WBCs trending down today. Likely steroid induced. No signs of infectious process. Continue to monitor. Plan/VTE VTE Prophylaxis Ordered?: Yes (TEDs and SCDs) VTE Exclusion Pharmacological: Bleeding Risk (intracranial procedure) Plan Anticipated Discharge: Home With Services (based on therapy's recommendation) VS, I&O, 24H, Fishbone Vital Signs/I&O Vital Signs Date Time Temp Pulse Resp B/P (MAP) Pulse Ox O2 Delivery O2 Flow Rate FiO2 11/30/16 14:00 98.7 71 20 112/56 (74 96 I&O- Last 24 Hours up to 6 AM 12/01/16 06:00 Intake Total 660 ml Output Total 0 ml Balance 660 ml Laboratory Data 24H LABS Laboratory Tests 2 11/29/16 20:17: Bedside Glucose (Misc Panel) 202H Microbiology Microbiology 11/24/16 Wound Culture - Final, Complete 11/24/16 Anaerobic Culture - Final, Complete Ge Mendoza MD Nov 30, 2016 16:27
[2016-11-30] MEDS: ROSUVASTATIN 10 MG TAB (CRESTOR) PO SCH (20:17)
[2016-11-30] MEDS: OLANZapine 2.5MG TABLET PO SCH (20:19)
[2016-11-30 22:00] VITALS: BP 128/65
[2016-11-30] MEDS: ACETAMINOPHEN 500 MG TAB PO PRN (23:31)
[2016-12-01] MEDS: dexameTHASONE 4 MG/ML 1ML VIAL (J1100) IV SCH ×2 (03:23→11:46)
[2016-12-01 06:00] VITALS: BP 130/68
[2016-12-01 06:47] LABS: MEAN CORPUSCULAR HEMOGLOBIN 26.5 pg (27.0-33.0); MEAN CORPUSCULAR HGB CONC 31.8 g/dl (32.0-36.5); MEAN CORPUSCULAR VOLUME 83.3 fl (80.0-96.0); PLATELET COUNT, AUTOMATED 271 10^3/uL (150-450); RED CELL DISTRIBUTION WIDTH 14.6 % (11.5-14.5); WHITE BLOOD COUNT 15.1 10^3/uL (4.0-10.0)
[2016-12-01 06:52] LABS: ADD MANUAL DIFFER YES; DIFF SLIDE NUMBER 81; POS COUNT POS FLAG; POSITIVE MORPH POS FLAG
[2016-12-01 06:59] LABS: ALBUMIN 2.9 GM/DL (3.2-5.2); ALBUMIN/GLOBULIN RATIO 0.85 (1.00-1.93); ALKALINE PHOSPHATASE 43 U/L (45-117); ALT/SGPT 23 U/L (12-78); ANION GAP 8 MEQ/L (8-16); AST/SGOT 5 U/L (15-37); BILIRUBIN,TOTAL 0.3 MG/DL (0.2-1.0); BLOOD UREA NITROGEN 30 MG/DL (7-18); CALCIUM LEVEL 9.3 MG/DL (8.8-10.2); CARBON DIOXIDE LEVEL 25 MEQ/L (21-32); CHLORIDE LEVEL 106 MEQ/L (98-107); CREATININE FOR GFR 0.69 MG/DL (0.55-1.02); GLOMERULAR FILTRATION RATE > 60.0 (>39); GLUCOSE, FASTING 119 MG/DL (83-110); POTASSIUM SERUM 4.2 MEQ/L (3.5-5.1); SODIUM LEVEL 139 MEQ/L (136-145); TOTAL PROTEIN 6.3 GM/DL (6.4-8.2)
[2016-12-01] MEDS: ADVAIR HFA 115/21MCG INHALER INH SCH ×2 (07:38→19:28)
[2016-12-01] MEDS: CYANOCOBALAMIN 500 MCG TAB PO SCH (08:43)
[2016-12-01] MEDS: MIRALAX *UNIT DOSE* 17GM PACKET PO SCH (08:43)
[2016-12-01] MEDS: FERROUS GLUCONATE 324 MG TAB PO SCH (08:43)
[2016-12-01] MEDS: levETIRAcetam 250MG TABLET (KEPPRA) PO SCH ×2 (08:43→20:18)
[2016-12-01] MEDS: LORATADINE 10 MG TAB PO SCH (08:44)
[2016-12-01] MEDS: IRBESARTAN 150 MG TAB PO SCH ×2 (08:44→20:20)
[2016-12-01] MEDS: CALCIUM/VITAMIN D 500 MG TAB PO SCH ×2 (08:44→20:19)
[2016-12-01] MEDS: BISOPROLOL FUMARATE 5 MG TAB PO SCH ×2 (08:44→20:20)
[2016-12-01] MEDS: PANTOPRAZOLE 40MG TAB (PROTONIX) PO SCH (08:44)
[2016-12-01] MEDS: NYSTATIN 100,000 UNITS/GM TOPICAL PWD 15 GM TOP SCH ×2 (08:48→20:20)
[2016-12-01 08:57] LABS: HYPERSEGMENTED POLYS 1+
--- NOTE | 2016-12-01 15:01 | IPNPDOC ---
Subjective Date Seen The patient was seen on 12/01/16. Subjective Chief Complaint/HPI The patient is a 76-year-old female admitted with a reason for visit of Brain Mass. Events since last encounter Pathology resulted in glioblastoma. Patient doing well today. She continues to move her bowels. Denies dysuria. Is in no discomfort today. She took a shower this morning, had her head dressing change. Patient wants her daughter to be contacted, Fransisca ([phone]). Constitutional: Denies: Chills, Fever, Night Sweats Pulmonary: Denies: Dyspnea, Cough Cardiovascular: Denies: Chest Pain, Palpitations, Orthopnea, Paroxysmal Noc. Dyspnea, Lt Headedness Gastrointestinal: Denies: Nausea, Vomiting, Abdominal Pain, Diarrhea, Constipation Genitourinary: Denies: Dysuria, Frequency, Incontinence, Retention Objective Physical Examination General Exam: Positive: Alert, Cooperative, No Acute Distress Eye Exam: Positive: EOMI, Negative: Sclera icteric ENT Exam: Positive: Atraumatic (there is a relatively clean bandage over the left occipital scalp, scant serous discharge) Neck Exam: Negative: Lymphadenopathy Chest Exam: Positive: Clear to auscultation Heart Exam: Positive: Rate Normal, Regular Rhythm Abdomen Exam: Positive: Normal bowel sounds, Soft, Negative: Tenderness Neuro Exam: Positive: Normal Speech Psych Exam: Positive: Mental status NL (grossly) Assessment /Plan Problems (1) Brain mass Problem Specific Plan: Consult Specialist, Monitor Clinically, Repeat Labs Problem Text: 12/01/16- POD #7. Pathology results: Glioblastoma. Patient will continue on PT/OT today. Plan for discharge to acute rehabilitation; current insurance does not allow for rehabilitation at [facility]. Discharge pending approval for acute rehabilitation center. Will change patient to SNF status today. Decadron was changed from IV to by mouth 11/30/16 - POD #6. Pathology still pending. Continue P/T and O/T as needed. The goal is strengthening and healing before chemo and radiation start. Dr. Jordan says it can start whenever the oncologists determine appropriate. She is ready from his perspective. 11/29/2016- POD #5. Pathology is still pending. Patient is continuing with physical therapy. Her thought process and speech are improved from yesterday. Her speech is more fluid. Her thoughts seem more organized. Patient states that she recognizes me today, although she did not recall my name. 11/28 POD # 4. Pathology is pending. Patient continues to have therapy. Her speech and thought process seem appropriate today, although slightly worse than yesterday with some word searching. 11/27- POD #3 s/p left posterior temporal parietal craniotomy with resection of mass, cranioplasty and left ventriculostomy performed by Dr Jordan. Path pending. Patient doing well today. Her speech and thought process seem appropriate today. Patient was seen by both oncology and radiation oncology today. They plan on discussing further treatment with the patient after she is discharged from the hospital and finishes rehabilitation. 11/26 - POD #2. Pt s/p left posterior temporal parietal craniotomy with resection of mass, cranioplasty and left ventriculostomy performed by Dr Jordan. Path pending. 11/25/14: POD #1 - doing very well. Awake and alert. Interacting appropriately with nursing and family. Neurosurgery has changed her to q2h Neurochecks. She had a repeat scan today. She may be downgraded to PCU status today. 11/24/16:Postop: left posterior temporal-parietal craniotomy with resection of mass, cranioplasty, and left lateral ventriculostomy performed by Dr. Jordan. Awaiting pathology results. Patient comfortable after procedure. Remains confused. Pt transferred to ICU for care. 11/21/16: start Olanzapaine. Continue to wait on second opinion pathology at from [facility]. Discuss with neurosurgery Keppra dosing adjustment 11/20/16: awaiting results from [facility], may need further surgical intervention. Noting some MS and behavior changes. Will arrange for psychiatry eval for medical decision making capabilities and insight. Discussed case with patient's daughter Kait, who agrees with plan. ? behavior changes related to Keppra. Continue to wait for pathology. Neurosurgery following. 11/15/16: Dr. Jordan has been consulted for a second opinion. Dr. Andres is out of town for a week. Dr. Jordan would like to wait until the official read of the brain biopsy is back before he makes a final decision that it's nondiagnostic; he recalls incidences where the frozen section has not been diagnostic but they were able to get a little more out of the fully fixed section to make a diagnosis. 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 There is an area of increased signal intensity in the medial left parietal lobe with associated mass effect. This is suspicious for a low grade glioma. Small vessel ischemic disease. Mild volume loss. CT Chest and Abd/pel were obtained to search for primary. CT Chest: 14 mm nodule in the anterior segment of the right lower lobe, not present on the comparison study. CT Abd/pel: No mass, adenopathy, or ascites. Chronic thickening of the terminal ileum, unchanged. Fat-containing ventral hernia, unchanged. Small hiatal hernia , unchanged. No lytic, blastic or destructive skeletal changes. Degenerative disc disease in the lumbar spine. Bilateral hip osteoarthritis, worse on the left. (2) Lung nodule Discussed With: Patient, Family with Pt Consent Problem Text: Patient has a 14 mm nodule in the right lower lobe. Patient was set up for biopsy of the nodule to rule out primary lesion. The nodule could not be biopsied by interventional radiology secondary to size. Dr. Morales noted that the lesion was unlikely a primary metastatic lesion. Patient proceeded to have a biopsy of her brain mass which resulted in glioblastoma. Lung nodule will need to be followed as outpatient. 11/24/2016: I reconfirmed this assessment with Dr. 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 Proceed with brain mass bx and pathology prior to lung nodule eval. 11/17/2016: Pulmonology, informal consult, advised against bronchoscopy. Recommends interventional to see if can get to nodule. Dr. Jordan is requesting that we strongly consider working up this lung nodule while she is in the hospital. He has a strong clinical suspicion that the brain lesion is metastatic. Additionally if she has a primary lung cancer it may change his recommendation to do an excisional bx of the brain lesion which almost assuredly leave her with some weakness and speech deficits. Tomorrow we should contact IR and/or Pulm to see whether CT guided bx or navigational bronchoscopy with bx is the best way to get a sample of this lesion. ------ CT Chest: 14 mm nodule in the anterior segment of the right lower lobe, not present on the comparison study. (3) Brain compression Status: Acute Response to Treatment: Controlled Problem Specific Plan: Monitor Clinically Problem Text: Dr. Jordan, brain edema and swelling treated with the left lateral ventriculostomy on 11/24/16. (4) HTN (hypertension) Status: Chronic Problem Specific Plan: Monitor Clinically Problem Text: BP is well controlled today. Continue current regimen, monitor. (5) CAD (coronary artery disease) Status: Chronic Problem Specific Plan: Monitor Clinically Problem Text: Per Neurosurgeon, Plavix to be held 72hrs after procedure. It has been twice that time now, and she hasn't been restarted yet. Will try to clarify if she may have this back yet, or if there is still reason to hold this. (6) COPD (chronic obstructive pulmonary disease) Status: Chronic Problem Specific Plan: Monitor Clinically Problem Text: Stable (7) Hyperlipidemia Status: Chronic Problem Specific Plan: Monitor Clinically Problem Text: On Crestor. (8) Anemia Status: Chronic Problem Specific Plan: Monitor Clinically Problem Text: On Supplemental B12 and Iron. (9) Leukocytosis Status: Acute Problem Text: WBCs trending down today. Likely steroid induced. No signs of infectious process. Continue to monitor. Plan/VTE VTE Prophylaxis Ordered?: Yes (TEDs and SCDs) VTE Exclusion Pharmacological: Bleeding Risk (intracranial procedure) Plan Anticipated Discharge: Home With Services (based on therapy's recommendation) VS, I&O, 24H, Fishbone Vital Signs/I&O Vital Signs Date Time Temp Pulse Resp B/P (MAP) Pulse Ox O2 Delivery O2 Flow Rate FiO2 12/01/16 08:44 66 130/68 12/01/16 06:00 98.0 20 10 Nasal Cannula 2.0 I&O- Last 24 Hours up to 6 AM 12/02/16 06:00 Intake Total 0 ml Output Total 350 ml Balance -350 ml Laboratory Data 24H LABS Laboratory Tests 2 12/01/16 05:49: Immature Granulocyte % (Auto) , Nucleated Red Blood Cells % (auto) 0.0, Neutrophils 88H, Lymphocytes (Manual) 7L, Monocytes (Manual) 3, Metamyelocytes 2H, Hypersegmented Polys 1+, Platelet Estimate NORMAL, Red Blood Cell Morphology NORMAL, Anion Gap 8, Glomerular Filtration Rate > 60.0, Blood Urea Nitrogen 30H, Creatinine 0.69, Sodium Level 139, Potassium Level 4.2, Chloride Level 106, Carbon Dioxide Level 25, Calcium Level 9.3, Aspartate Amino Transf ( AST/SGOT) 5L, Alanine Aminotransferase (ALT/SGPT) 23, Alkaline Phosphatase 43L, Total Bilirubin 0.3, Total Protein 6.3L, Albumin 2.9L, Albumin/Globulin Ratio 0.85L CBC/BMP Laboratory Tests 12/01/16 05:49 Red Blood Count 4.79, Mean Corpuscular Volume 83.3, Mean Corpuscular Hemoglobin 26.5 L, Mean Corpuscular Hemoglobin Concent 31.8 L, Red Cell Distribution Width 14.6 H, Calcium Level 9.3, Aspartate Amino Transf (AST/SGOT) 5 L, Alanine Aminotransferase (ALT/SGPT) 23, Alkaline Phosphatase 43 L, Total Bilirubin 0.3, Total Protein 6.3 L, Albumin 2.9 L Microbiology Microbiology 11/24/16 Wound Culture - Final, Complete 11/24/16 Anaerobic Culture - Final, Complete GME ATTESTATION GME ATTESTATION My preceptor for this patient encounter was physically present in the building during the encounter and was fully available. As needed, all aspects of the patient interview, examination, medical decision making process, and medical care plan development were reviewed and approved by the preceptor. Preceptor is aware and concurs with the plan as stated in the body of this note and will attest to such by his/her cosignature. ATTENDING NOTE Family Medicine Attending Note: Patient was seen and examined this afternoon. I discussed her care with Dr. Jorgensen and I agree with his note as documented. Will change to ALC status today while PFS works on placement - we need to see what is covered by her insurance. Otherwise, she is medically stable. (KES) CARRIE JORGENSEN DO Dec 01, 2016 11:48 KERRI SAWYER MD Dec 01, 2016 16:26
[2016-12-01] MEDS: OLANZapine 2.5MG TABLET PO SCH (20:19)
[2016-12-01] MEDS: ROSUVASTATIN 10 MG TAB (CRESTOR) PO SCH (20:19)
[2016-12-01] MEDS: ACETAMINOPHEN 500 MG TAB PO PRN (20:24)
[2016-12-02 06:00] VITALS: BP 109/62
[2016-12-02] MEDS: LORATADINE 10 MG TAB PO SCH (08:34)
[2016-12-02] MEDS: PANTOPRAZOLE 40MG TAB (PROTONIX) PO SCH (08:34)
[2016-12-02] MEDS: CYANOCOBALAMIN 500 MCG TAB PO SCH (08:34)
[2016-12-02] MEDS: CALCIUM/VITAMIN D 500 MG TAB PO SCH ×2 (08:34→21:33)
[2016-12-02] MEDS: IRBESARTAN 150 MG TAB PO SCH ×2 (08:34→21:00)
[2016-12-02] MEDS: BISOPROLOL FUMARATE 5 MG TAB PO SCH ×2 (08:34→21:00)
[2016-12-02] MEDS: MIRALAX *UNIT DOSE* 17GM PACKET PO SCH (08:35)
[2016-12-02] MEDS: FERROUS GLUCONATE 324 MG TAB PO SCH (08:35)
[2016-12-02] MEDS: levETIRAcetam 250MG TABLET (KEPPRA) PO SCH ×2 (08:35→21:33)
[2016-12-02] MEDS: NYSTATIN 100,000 UNITS/GM TOPICAL PWD 15 GM TOP SCH ×2 (08:42→21:00)
[2016-12-02] MEDS: ADVAIR HFA 115/21MCG INHALER INH SCH ×2 (09:15→20:05)
[2016-12-02] MEDS: NYSTATIN 500,000 U/5 ML SUSP UDC SS SCH ×2 (18:21→21:39)
[2016-12-02] MEDS: ACETAMINOPHEN 500 MG TAB PO PRN (19:35)
[2016-12-02] MEDS: ROSUVASTATIN 10 MG TAB (CRESTOR) PO SCH (21:33)
[2016-12-02] MEDS: OLANZapine 2.5MG TABLET PO SCH (21:33)
[2016-12-03 06:00] VITALS: BP 110/67
[2016-12-03] MEDS: ADVAIR HFA 115/21MCG INHALER INH SCH ×2 (08:10→20:48)
[2016-12-03] MEDS: NYSTATIN 500,000 U/5 ML SUSP UDC SS SCH ×4 (09:40→20:09)
[2016-12-03] MEDS: MIRALAX *UNIT DOSE* 17GM PACKET PO SCH (09:40)
[2016-12-03] MEDS: CYANOCOBALAMIN 500 MCG TAB PO SCH (09:41)
[2016-12-03] MEDS: FERROUS GLUCONATE 324 MG TAB PO SCH (09:41)
[2016-12-03] MEDS: levETIRAcetam 250MG TABLET (KEPPRA) PO SCH ×2 (09:41→20:09)
[2016-12-03] MEDS: PANTOPRAZOLE 40MG TAB (PROTONIX) PO SCH (09:41)
[2016-12-03] MEDS: CALCIUM/VITAMIN D 500 MG TAB PO SCH ×2 (09:41→20:10)
[2016-12-03] MEDS: LORATADINE 10 MG TAB PO SCH (09:42)
[2016-12-03] MEDS: BISOPROLOL FUMARATE 5 MG TAB PO SCH ×2 (09:43→20:11)
[2016-12-03] MEDS: IRBESARTAN 150 MG TAB PO SCH ×2 (09:43→20:11)
[2016-12-03] MEDS: NYSTATIN 100,000 UNITS/GM TOPICAL PWD 15 GM TOP SCH ×2 (12:38→20:11)
[2016-12-03] MEDS: ROSUVASTATIN 10 MG TAB (CRESTOR) PO SCH (20:09)
[2016-12-03] MEDS: ACETAMINOPHEN 500 MG TAB PO PRN (20:10)
[2016-12-03] MEDS: OLANZapine 2.5MG TABLET PO SCH (20:10)
[2016-12-04 06:10] LABS: MEAN CORPUSCULAR HEMOGLOBIN 26.8 pg (27.0-33.0); MEAN CORPUSCULAR HGB CONC 32.5 g/dl (32.0-36.5); MEAN CORPUSCULAR VOLUME 82.4 fl (80.0-96.0); PLATELET COUNT, AUTOMATED 274 10^3/uL (150-450); RED CELL DISTRIBUTION WIDTH 14.7 % (11.5-14.5); WHITE BLOOD COUNT 22.4 10^3/uL (4.0-10.0)
[2016-12-04 06:12] LABS: ADD MANUAL DIFFER YES; DIFF SLIDE NUMBER 25; POS COUNT POS FLAG; POSITIVE DIFF POS FLAG; POSITIVE MORPH POS FLAG
[2016-12-04 06:32] LABS: ALBUMIN 3.3 GM/DL (3.2-5.2); ALKALINE PHOSPHATASE 50 U/L (45-117); ALT/SGPT 27 U/L (12-78); ANION GAP 8 MEQ/L (8-16); AST/SGOT 12 U/L (15-37); BILIRUBIN,TOTAL 0.5 MG/DL (0.2-1.0); BLOOD UREA NITROGEN 30 MG/DL (7-18); CALCIUM LEVEL 9.2 MG/DL (8.8-10.2); CARBON DIOXIDE LEVEL 27 MEQ/L (21-32); CHLORIDE LEVEL 103 MEQ/L (98-107); CREATININE FOR GFR 0.64 MG/DL (0.55-1.02); GLOMERULAR FILTRATION RATE > 60.0 (>39); GLUCOSE, FASTING 120 MG/DL (83-110); SODIUM LEVEL 138 MEQ/L (136-145); TOTAL PROTEIN 6.3 GM/DL (6.4-8.2)
[2016-12-04 06:51] LABS: BANDS 2 % (< 11)
[2016-12-04] MEDS: ADVAIR HFA 115/21MCG INHALER INH SCH ×2 (08:01→19:56)
[2016-12-04] MEDS: MIRALAX *UNIT DOSE* 17GM PACKET PO SCH (09:14)
[2016-12-04] MEDS: FERROUS GLUCONATE 324 MG TAB PO SCH (09:14)
[2016-12-04] MEDS: NYSTATIN 500,000 U/5 ML SUSP UDC SS SCH ×4 (09:14→20:10)
[2016-12-04] MEDS: LORATADINE 10 MG TAB PO SCH (09:15)
[2016-12-04] MEDS: PANTOPRAZOLE 40MG TAB (PROTONIX) PO SCH (09:15)
[2016-12-04] MEDS: levETIRAcetam 250MG TABLET (KEPPRA) PO SCH ×2 (09:15→20:11)
[2016-12-04] MEDS: CALCIUM/VITAMIN D 500 MG TAB PO SCH ×2 (09:15→20:10)
[2016-12-04] MEDS: CYANOCOBALAMIN 500 MCG TAB PO SCH (09:15)
[2016-12-04] MEDS: BISOPROLOL FUMARATE 5 MG TAB PO SCH ×2 (09:16→20:13)
[2016-12-04] MEDS: NYSTATIN 100,000 UNITS/GM TOPICAL PWD 15 GM TOP SCH ×2 (09:17→20:13)
[2016-12-04] MEDS: IRBESARTAN 150 MG TAB PO SCH ×2 (09:17→20:12)
[2016-12-04] MEDS: OLANZapine 2.5MG TABLET PO SCH (20:10)
[2016-12-04] MEDS: ROSUVASTATIN 10 MG TAB (CRESTOR) PO SCH (20:10)
[2016-12-04] MEDS: ACETAMINOPHEN 500 MG TAB PO PRN (20:11)
[2016-12-05] MEDS: ADVAIR HFA 115/21MCG INHALER INH SCH ×2 (07:34→19:46)
[2016-12-05] MEDS: NYSTATIN 500,000 U/5 ML SUSP UDC SS SCH ×4 (08:25→20:29)
[2016-12-05] MEDS: MIRALAX *UNIT DOSE* 17GM PACKET PO SCH (08:25)
[2016-12-05] MEDS: IRBESARTAN 150 MG TAB PO SCH ×2 (08:26→20:28)
[2016-12-05] MEDS: BISOPROLOL FUMARATE 5 MG TAB PO SCH ×2 (08:26→20:30)
[2016-12-05] MEDS: LORATADINE 10 MG TAB PO SCH (08:27)
[2016-12-05] MEDS: FERROUS GLUCONATE 324 MG TAB PO SCH (08:27)
[2016-12-05] MEDS: CYANOCOBALAMIN 500 MCG TAB PO SCH (08:27)
[2016-12-05] MEDS: PANTOPRAZOLE 40MG TAB (PROTONIX) PO SCH (08:27)
[2016-12-05] MEDS: CALCIUM/VITAMIN D 500 MG TAB PO SCH ×2 (08:27→20:28)
[2016-12-05] MEDS: levETIRAcetam 250MG TABLET (KEPPRA) PO SCH ×2 (08:27→20:28)
[2016-12-05] MEDS: NYSTATIN 100,000 UNITS/GM TOPICAL PWD 15 GM TOP SCH ×2 (08:28→20:29)
[2016-12-05 14:00] VITALS: BP 130/73
[2016-12-05] MEDS: ROSUVASTATIN 10 MG TAB (CRESTOR) PO SCH (20:27)
[2016-12-05] MEDS: OLANZapine 2.5MG TABLET PO SCH (20:28)
[2016-12-05] MEDS: traMADol 50 MG TAB PO PRN (20:34)
[2016-12-06 05:00] VITALS: BP 132/76
[2016-12-06] MEDS: ADVAIR HFA 115/21MCG INHALER INH SCH ×2 (08:16→20:14)
[2016-12-06] MEDS: NYSTATIN 100,000 UNITS/GM TOPICAL PWD 15 GM TOP SCH ×2 (10:38→20:08)
[2016-12-06] MEDS: NYSTATIN 500,000 U/5 ML SUSP UDC SS SCH ×4 (10:38→20:05)
[2016-12-06] MEDS: FERROUS GLUCONATE 324 MG TAB PO SCH (10:39)
[2016-12-06] MEDS: PANTOPRAZOLE 40MG TAB (PROTONIX) PO SCH (10:39)
[2016-12-06] MEDS: LORATADINE 10 MG TAB PO SCH (10:39)
[2016-12-06] MEDS: CYANOCOBALAMIN 500 MCG TAB PO SCH (10:40)
[2016-12-06] MEDS: levETIRAcetam 250MG TABLET (KEPPRA) PO SCH ×2 (10:40→20:08)
[2016-12-06] MEDS: BISOPROLOL FUMARATE 5 MG TAB PO SCH ×2 (10:40→20:08)
[2016-12-06] MEDS: CALCIUM/VITAMIN D 500 MG TAB PO SCH ×2 (10:40→20:05)
[2016-12-06] MEDS: MIRALAX *UNIT DOSE* 17GM PACKET PO SCH (10:42)
[2016-12-06] MEDS: IRBESARTAN 150 MG TAB PO SCH ×2 (10:42→20:08)
[2016-12-06] MEDS: OLANZapine 2.5MG TABLET PO SCH (20:07)
[2016-12-06] MEDS: ROSUVASTATIN 10 MG TAB (CRESTOR) PO SCH (20:08)
[2016-12-07 06:00] VITALS: BP 136/66
[2016-12-07] MEDS: ADVAIR HFA 115/21MCG INHALER INH SCH ×2 (08:36→20:44)
[2016-12-07] MEDS: MIRALAX *UNIT DOSE* 17GM PACKET PO SCH (08:59)
[2016-12-07] MEDS: NYSTATIN 500,000 U/5 ML SUSP UDC SS SCH ×4 (08:59→20:11)
[2016-12-07] MEDS: PANTOPRAZOLE 40MG TAB (PROTONIX) PO SCH (08:59)
[2016-12-07] MEDS: NYSTATIN 100,000 UNITS/GM TOPICAL PWD 15 GM TOP SCH ×2 (08:59→20:12)
[2016-12-07] MEDS: LORATADINE 10 MG TAB PO SCH (09:00)
[2016-12-07] MEDS: CALCIUM/VITAMIN D 500 MG TAB PO SCH ×2 (09:00→20:11)
[2016-12-07] MEDS: CYANOCOBALAMIN 500 MCG TAB PO SCH (09:00)
[2016-12-07] MEDS: BISOPROLOL FUMARATE 5 MG TAB PO SCH ×2 (09:00→20:17)
[2016-12-07] MEDS: levETIRAcetam 250MG TABLET (KEPPRA) PO SCH ×2 (09:00→20:11)
[2016-12-07] MEDS: FERROUS GLUCONATE 324 MG TAB PO SCH (09:00)
[2016-12-07] MEDS: IRBESARTAN 150 MG TAB PO SCH ×2 (09:03→20:17)
[2016-12-07] MEDS: ROSUVASTATIN 10 MG TAB (CRESTOR) PO SCH (20:11)
[2016-12-07] MEDS: OLANZapine 2.5MG TABLET PO SCH (20:11)
[2016-12-07] MEDS: ACETAMINOPHEN 500 MG TAB PO PRN (20:24)
[2016-12-08 05:53] LABS: MEAN CORPUSCULAR HGB CONC 32.9 g/dl (32.0-36.5); MEAN CORPUSCULAR VOLUME 82.1 fl (80.0-96.0); PLATELET COUNT, AUTOMATED 211 10^3/uL (150-450); RED CELL DISTRIBUTION WIDTH 15.2 % (11.5-14.5); WHITE BLOOD COUNT 19.9 10^3/uL (4.0-10.0)
[2016-12-08 05:55] LABS: ADD MANUAL DIFFER YES; DIFF SLIDE NUMBER 3; POS COUNT POS FLAG; POSITIVE MORPH POS FLAG
[2016-12-08 06:00] VITALS: BP 133/69
[2016-12-08 06:12] LABS: ALBUMIN 3.2 GM/DL (3.2-5.2); ALBUMIN/GLOBULIN RATIO 1.07 (1.00-1.93); ALKALINE PHOSPHATASE 47 U/L (45-117); ALT/SGPT 30 U/L (12-78); ANION GAP 8 MEQ/L (8-16); AST/SGOT 11 U/L (7-37); BILIRUBIN,TOTAL 0.4 MG/DL (0.2-1.0); BLOOD UREA NITROGEN 27 MG/DL (7-18); CALCIUM LEVEL 9.2 MG/DL (8.8-10.2); CARBON DIOXIDE LEVEL 27 MEQ/L (21-32); CHLORIDE LEVEL 101 MEQ/L (98-107); CREATININE FOR GFR 0.46 MG/DL (0.55-1.02); GLOMERULAR FILTRATION RATE > 60.0 (>39); GLUCOSE, FASTING 123 MG/DL (83-110); POTASSIUM SERUM 4.7 MEQ/L (3.5-5.1); SODIUM LEVEL 136 MEQ/L (136-145); TOTAL PROTEIN 6.2 GM/DL (6.4-8.2)
[2016-12-08 06:13] LABS: HYPOCHROMASIA 1+
[2016-12-08 06:14] LABS: ANISOCYTOSIS 1+
[2016-12-08] MEDS: ADVAIR HFA 115/21MCG INHALER INH SCH ×2 (07:27→19:46)
[2016-12-08] MEDS: NYSTATIN 500,000 U/5 ML SUSP UDC SS SCH ×4 (08:41→22:00)
[2016-12-08] MEDS: PANTOPRAZOLE 40MG TAB (PROTONIX) PO SCH (08:41)
[2016-12-08] MEDS: CYANOCOBALAMIN 500 MCG TAB PO SCH (08:41)
[2016-12-08] MEDS: MIRALAX *UNIT DOSE* 17GM PACKET PO SCH (08:41)
[2016-12-08] MEDS: IRBESARTAN 150 MG TAB PO SCH ×2 (08:41→22:01)
[2016-12-08] MEDS: CALCIUM/VITAMIN D 500 MG TAB PO SCH ×2 (08:41→22:01)
[2016-12-08] MEDS: levETIRAcetam 250MG TABLET (KEPPRA) PO SCH ×2 (08:42→22:01)
[2016-12-08] MEDS: BISOPROLOL FUMARATE 5 MG TAB PO SCH ×2 (08:42→22:01)
[2016-12-08] MEDS: FERROUS GLUCONATE 324 MG TAB PO SCH (08:42)
[2016-12-08] MEDS: LORATADINE 10 MG TAB PO SCH (08:43)
[2016-12-08] MEDS: NYSTATIN 100,000 UNITS/GM TOPICAL PWD 15 GM TOP SCH ×2 (08:43→22:03)
[2016-12-08] MEDS: ACETAMINOPHEN 500 MG TAB PO PRN (10:27)
[2016-12-08] MEDS: ROSUVASTATIN 10 MG TAB (CRESTOR) PO SCH (22:02)
[2016-12-08] MEDS: OLANZapine 2.5MG TABLET PO SCH (22:02)
[2016-12-09 06:00] VITALS: BP 134/71
--- NOTE | 2016-12-09 06:25 | DS.PDOC ---
Discharge Summary General Date of Admission Nov 11, 2016 at 16:54 Date of Discharge 12/01/16 Primary Care Physician: Tushar Barr M.D. Attending Physician: KERRI SAWYER MD Specialist/Consultants Involve: GARY JULIO MD Discharge Summary TRANSFER TO [facility] NOTE PROCEDURES PERFORMED DURING STAY: Left posterior temporal parietal craniotomy with resection of mass, cranioplasty and left ventriculostomy performed by Dr Julio 11/24/16 ADMITTING DIAGNOSES: Brain mass TRANSFER DIAGNOSES: Glioblastoma, hypertension, CAD, COPD, hyperlipidemia, chronic anemia, leukocytosis COMPLICATIONS/CHIEF COMPLAINT: Brain Mass. BRIEF HISTORY/HOSPITAL COURSE: This is a 76-year-old female who presented to the outpatient clinic on 2016 and was admitted for hospital admission for a suspected brain tumor. Patient obtained a CT of the head at the time of admission which showed edema with mass effect in the posterior left temporalis and parietal lobes without midline shift. Patient was admitted to the hospital and was followed by neurosurgery. The patient underwent a left craniotomy for biopsy of her brain mass on 11/14/2016. Results of the biopsy were inconclusive. Patient developed onset of confusion, unsteadiness, headaches, and difficulty with speech following the procedure. Patient was also found to have a lung mass on chest CT completed on 11/11/2016 which showed a 14 mm nodule in the anterior segment of the right lower lobe. Biopsy could not be performed because of the size of the lesion. It was noted by pulmonology that the lesion was unlikely to be a primary cancer. Patient was evaluated by psychiatry on 11/20/2016 because of the acute change in her cognition. She was diagnosed with a psychotic disorder secondary to her current medical conditions. Patient was started on antipsychotic medications. Patient underwent a left posterior temporal parietal craniotomy with resection of the mass on 11/24/2016. She continues to be followed by neurosurgery. DISCHARGE MEDICATIONS: Please see below. ALLERGIES: Please see below. PHYSICAL EXAMINATION on TRANSFER: Please see progress note on 12/01/2016. LABORATORY DATA: Please see below. IMAGING: Chest CT 11/11/2016: 14 mm nodule in the anterior segment of the right lower lobe Abdomen/pelvis CT 11/11/2016:There is no mass, adenopathy, or ascites. bilateral hip osteoarthritis. No lytic lesions or blastic or discharge of skeletal changes Brain MRI 11/12/2016: ring enhancing mass in the left temporal lobe Daily head CT 11/14/2016-11/17/2016; 11/20/2016; 11/25/2016; 11/29/16: Postop: status post resection of a left temporal lobe tumor. There is decreased hemorrhage, pneumocephalus, and mass effect at the surgical site Brain MRI 11/24/2016: ring-enhancing mass with moderate heterogenous enhancement is present in the posterior left temporal lobe. The mass measures 2.1 cm in transverse by 3.9 cm in AP dimensions ACTIVITY: As tolerated. DIET: As tolerated TRANSFER PLAN: Transfer patient to [facility] awaiting discharge plan to short term rehabilitation TRANSFER INSTRUCTIONS: Continue medications and routine care. Patient will continue was rehabilitation. TRANSFER CONDITION: Stable Vital Signs/I&Os Vital Signs Date Time Temp Pulse Resp B/P (MAP) Pulse Ox O2 Delivery O2 Flow Rate FiO2 12/08/16 06:00 97.1 67 18 133/69 (90) 100 12/07/16 21:00 Room Air 12/07/16 06:00 2.0 Laboratory Data Labs 24H Laboratory Tests 2 12/08/16 05:41: Immature Granulocyte % (Auto) , Nucleated Red Blood Cells % (auto) 0.0, Neutrophils 82H, Lymphocytes (Manual) 7L, Monocytes (Manual) 5, Metamyelocytes 4H, Myelocytes 1H, Atypical Lymphocytes 1, Platelet Estimate NORMAL, Hypochromasia 1+, Anisocytosis 1+, Anion Gap 8, Glomerular Filtration Rate > 60.0, Blood Urea Nitrogen 27H, Creatinine 0.46L, Sodium Level 136, Potassium Level 4.7, Chloride Level 101, Carbon Dioxide Level 27, Calcium Level 9.2, Aspartate Amino Transf (AST/SGOT) 11, Alanine Aminotransferase (ALT/SGPT) 30, Alkaline Phosphatase 47, Total Bilirubin 0.4, Total Protein 6.2L, Albumin 3.2, Albumin/Globulin Ratio 1.07 CBC/BMP Laboratory Tests 12/08/16 05:41 Red Blood Count 4.48, Mean Corpuscular Volume 82.1, Mean Corpuscular Hemoglobin 27.0, Mean Corpuscular Hemoglobin Concent 32.9, Red Cell Distribution Width 15.2 H, Calcium Level 9.2, Aspartate Amino Transf (AST/SGOT) 11, Alanine Aminotransferase (ALT/SGPT) 30, Alkaline Phosphatase 47, Total Bilirubin 0.4, Total Protein 6.2 L, Albumin 3.2 Discharge Medications Scheduled (Aspirin EC Low Dose) 81 Mg Tab, 81 MG PO QHS, (Reported) Amlodipine Besylate (Norvasc) 2.5 Mg Tab, 2.5 MG PO BID, (Reported) Ascorbic Acid (Vitamin C) 1,000 Mg Tab, 1,000 MG PO DAILY, (Reported) Azelastine Hydrochloride (Astepro) 0.15 % Spr, 2 SPRAY NA DAILY, (Reported) Bisoprolol Fumarate (Bisoprolol Fumarate) 5 Mg Tab, 5 MG PO BID, (Reported) Calcium/Vitamin D (Calcium/Vitamin D 600-400 mg-Unit) 1 Tab Tab, 1 TAB PO BID, ( Reported) Cholecalciferol (Vitamin D) 1,000 Unit Tab, 2,000 UNIT PO BID, (Reported) Clopidogrel Bisulfate (Plavix) 75 Mg Tab, 75 MG PO DAILY, (Reported) Docusate Sodium (Colace) 100 Mg Cap, 100 MG PO DAILY, (Reported) Ferrous Gluconate (Ferrous Gluconate) 324 Mg Tab, 324 MG PO DAILY, (Reported) Fluticasone Propionate (Flonase) 0.05 % Spr, 2 SPRAYS NA DAILY, (Reported) Irbesartan (Avapro) 150 Mg Tab, 150 MG PO BID, (Reported) Loratadine (Claritin) 10 Mg Tab, 10 MG PO DAILY, (Reported) Multivitamins *[facility] STOCKED* (Thera M Plus *[facility] STOCKED*) 1 Tab Tab, 1 TAB PO DAILY, (Reported) [place] 3 Polyunsat Fatty Acids ([place] 3 1000 mg) 1 Cap Cap, 1,000 MG PO DAILY, ( Reported) Pantoprazole Sodium Sesquihydr (Protonix) 40 Mg Tab, 40 MG PO DAILY, (Reported) Rosuvastatin Calcium (Crestor) 20 Mg Tab, 20 MG PO QHS, (Reported) Salmeterol/Fluticasone (Advair Diskus 250-50 Mcg/Dose) 14 Puff/Inhaler Aerp, 1 PUFF INH BID, (Reported) Vitamin B12 (Vitamin B-12 Tr) 1,000 Cr Tab, 1,000 MCG PO DAILY, (Reported) Scheduled PRN (Melatonin) 3 Mg Tab, 3 MG PO QHS PRN for SLEEP, (Reported) Acetaminophen/Codeine (Tylenol/Codeine #3) Tab, 1 TAB PO Q6H PRN for PAIN, ( Reported) Diphenhydramine Hcl (Benadryl Allergy) 25 Mg Tab, 25 MG PO Q6H PRN for ITCHING, (Reported) Polyethylene Glycol (Miralax) 1 Pow Pow, 17 GM PO DAILY PRN for CONSTIPATION, ( Reported) dilute in 8 ounces of water or juice Allergies Coded Allergies: Alcohol (Verified Allergy, Severe, LIPS SWELL HEART PALPITATIONS, 05/12/12) Meperidine (Unverified Allergy, Severe, LIPS SWELL HEART PALPITATIONS NAUSEA,VOMITING, 05/12/12) N/V Propoxyphene (Verified Allergy, Severe, LIPS SWELL HEART PALPITATIONS, 05/12/12) Sulfa Drugs (Verified Allergy, Mild, RASH-HIVES, 05/12/12) Sulfa Drugs Cross Reactors (Verified Allergy, Mild, RASH-HIVES, 05/12/12) Calcium Channel Blockers (Verified Allergy, Unknown, 05/12/12) Clavulanic Acid (Verified Allergy, Unknown, 05/12/12) Penicillins (Verified Allergy, Unknown, 05/12/12) Penicillins Cross Reactors (Verified Allergy, Unknown, 05/12/12) Quinolones (Verified Allergy, Unknown, 05/12/12) CARRIE GARZA DO Dec 08, 2016 07:36
[2016-12-09 08:05] VITALS: BP 138/82
--- NOTE | 2016-12-09 09:09 | REP ---
CT HEAD WITHOUT CONTRAST: HISTORY: Fall. COMPARISON: 11/29/2016. The patient is status post left temporal partial craniotomy. The patient is status post resection of a left temporal lobe tumor. There has been resolution of the previously noted small amount of hemorrhage and pneumocephalus. Edema is present that is decreased compared to the previous study. There is slight mass effect on the atrium , occipital horn and posterior body of the left lateral ventricle. There is no midline shift. There is no hydrocephalus or extracerebral collection. There is no fracture. The visualized sinuses are clear. IMPRESSION: The patient is status post resection of a left temporal lobe tumor. There has been resolution of the previously noted small amount of hemorrhage and pneumocephalus. There is decreased edema with minimal mass effect on the adjacent left lateral ventricle. There is no midline shift. Signed by Elias Ruelas MD 12/09/2016 09:15 A
[2016-12-09] MEDS: levETIRAcetam 250MG TABLET (KEPPRA) PO SCH ×2 (09:16→21:13)
[2016-12-09] MEDS: NYSTATIN 500,000 U/5 ML SUSP UDC SS SCH ×4 (09:16→21:12)
[2016-12-09] MEDS: CALCIUM/VITAMIN D 500 MG TAB PO SCH ×2 (09:16→21:13)
[2016-12-09] MEDS: CYANOCOBALAMIN 500 MCG TAB PO SCH (09:16)
[2016-12-09] MEDS: MIRALAX *UNIT DOSE* 17GM PACKET PO SCH (09:16)
[2016-12-09] MEDS: FERROUS GLUCONATE 324 MG TAB PO SCH (09:16)
[2016-12-09] MEDS: PANTOPRAZOLE 40MG TAB (PROTONIX) PO SCH (09:16)
[2016-12-09] MEDS: IRBESARTAN 150 MG TAB PO SCH ×2 (09:16→21:13)
[2016-12-09] MEDS: LORATADINE 10 MG TAB PO SCH (09:17)
[2016-12-09] MEDS: BISOPROLOL FUMARATE 5 MG TAB PO SCH ×2 (09:18→21:13)
[2016-12-09] MEDS: NYSTATIN 100,000 UNITS/GM TOPICAL PWD 15 GM TOP SCH ×2 (09:18→21:13)
[2016-12-09] MEDS: ADVAIR HFA 115/21MCG INHALER INH SCH ×2 (10:55→19:24)
[2016-12-09] MEDS: OLANZapine 2.5MG TABLET PO SCH (21:12)
[2016-12-09] MEDS: ROSUVASTATIN 10 MG TAB (CRESTOR) PO SCH (21:13)
[2016-12-09] MEDS: ACETAMINOPHEN 500 MG TAB PO PRN (22:47)
[2016-12-10 06:00] VITALS: BP 132/75
[2016-12-10] MEDS: LORATADINE 10 MG TAB PO SCH (09:15)
[2016-12-10] MEDS: PANTOPRAZOLE 40MG TAB (PROTONIX) PO SCH (09:15)
[2016-12-10] MEDS: CYANOCOBALAMIN 500 MCG TAB PO SCH (09:15)
[2016-12-10] MEDS: levETIRAcetam 250MG TABLET (KEPPRA) PO SCH ×2 (09:15→20:29)
[2016-12-10] MEDS: BISOPROLOL FUMARATE 5 MG TAB PO SCH ×2 (09:16→20:29)
[2016-12-10] MEDS: FERROUS GLUCONATE 324 MG TAB PO SCH (09:17)
[2016-12-10] MEDS: ACETAMINOPHEN 500 MG TAB PO PRN ×2 (09:17→20:30)
[2016-12-10] MEDS: CALCIUM/VITAMIN D 500 MG TAB PO SCH ×2 (09:17→20:28)
[2016-12-10] MEDS: MIRALAX *UNIT DOSE* 17GM PACKET PO SCH (09:18)
[2016-12-10] MEDS: NYSTATIN 100,000 UNITS/GM TOPICAL PWD 15 GM TOP SCH ×2 (09:18→20:31)
[2016-12-10] MEDS: NYSTATIN 500,000 U/5 ML SUSP UDC SS SCH ×4 (09:18→20:29)
[2016-12-10] MEDS: IRBESARTAN 150 MG TAB PO SCH ×2 (09:18→20:29)
[2016-12-10] MEDS: ADVAIR HFA 115/21MCG INHALER INH SCH ×2 (09:37→19:17)
[2016-12-10] MEDS: traMADol 50 MG TAB PO PRN (16:46)
[2016-12-10] MEDS: ROSUVASTATIN 10 MG TAB (CRESTOR) PO SCH (20:28)
[2016-12-10] MEDS: OLANZapine 2.5MG TABLET PO SCH (20:30)
[2016-12-11 06:00] VITALS: BP 130/60
[2016-12-11 06:47] LABS: MEAN CORPUSCULAR HEMOGLOBIN 26.9 pg (27.0-33.0); MEAN CORPUSCULAR HGB CONC 32.3 g/dl (32.0-36.5); MEAN CORPUSCULAR VOLUME 83.3 fl (80.0-96.0); PLATELET COUNT, AUTOMATED 176 10^3/uL (150-450); RED CELL DISTRIBUTION WIDTH 15.3 % (11.5-14.5)
[2016-12-11 06:51] LABS: ADD MANUAL DIFFER YES; DIFF SLIDE NUMBER 5; POS COUNT POS FLAG; POSITIVE MORPH POS FLAG
[2016-12-11 07:15] LABS: ALBUMIN 2.8 GM/DL (3.2-5.2); ALKALINE PHOSPHATASE 47 U/L (45-117); ALT/SGPT 31 U/L (12-78); ANION GAP 8 MEQ/L (8-16); AST/SGOT 11 U/L (7-37); BILIRUBIN,TOTAL 0.5 MG/DL (0.2-1.0); BLOOD UREA NITROGEN 28 MG/DL (7-18); CARBON DIOXIDE LEVEL 28 MEQ/L (21-32); CHLORIDE LEVEL 102 MEQ/L (98-107); CREATININE FOR GFR 0.51 MG/DL (0.55-1.02); GLOMERULAR FILTRATION RATE > 60.0 (>39); GLUCOSE, FASTING 112 MG/DL (83-110); POTASSIUM SERUM 4.6 MEQ/L (3.5-5.1); SODIUM LEVEL 138 MEQ/L (136-145); TOTAL PROTEIN 5.9 GM/DL (6.4-8.2)
[2016-12-11 07:16] VITALS: O2SAT 98
[2016-12-11] MEDS: ADVAIR HFA 115/21MCG INHALER INH SCH ×2 (07:16→19:33)
[2016-12-11 07:28] LABS: ANISOCYTOSIS 1+
[2016-12-11 07:29] LABS: PLATELET CLUMPS SMALL AMT
[2016-12-11] MEDS: CALCIUM/VITAMIN D 500 MG TAB PO SCH ×2 (08:10→20:27)
[2016-12-11] MEDS: MIRALAX *UNIT DOSE* 17GM PACKET PO SCH (08:10)
[2016-12-11] MEDS: NYSTATIN 500,000 U/5 ML SUSP UDC SS SCH ×4 (08:11→20:28)
[2016-12-11] MEDS: LORATADINE 10 MG TAB PO SCH (08:11)
[2016-12-11] MEDS: CYANOCOBALAMIN 500 MCG TAB PO SCH (08:11)
[2016-12-11] MEDS: levETIRAcetam 250MG TABLET (KEPPRA) PO SCH ×2 (08:11→20:26)
[2016-12-11] MEDS: NYSTATIN 100,000 UNITS/GM TOPICAL PWD 15 GM TOP SCH ×2 (08:11→20:28)
[2016-12-11] MEDS: CALCIUM CARBONATE 500 MG CHEW U/D PO PRN (08:11)
[2016-12-11] MEDS: FERROUS GLUCONATE 324 MG TAB PO SCH (08:13)
[2016-12-11] MEDS: PANTOPRAZOLE 40MG TAB (PROTONIX) PO SCH (08:13)
[2016-12-11] MEDS: BISOPROLOL FUMARATE 5 MG TAB PO SCH ×2 (08:14→20:27)
[2016-12-11] MEDS: IRBESARTAN 150 MG TAB PO SCH ×2 (08:14→20:26)
--- NOTE | 2016-12-11 10:41 | IPNPDOC ---
Subjective Date Seen The patient was seen on 12/11/16. Subjective Chief Complaint/HPI The patient is a 76-year-old female admitted with a reason for visit of Brain Mass. Events since last encounter Patient fell and hit her head 2 days ago. Has been having increased "religous visions and talk" per nursing. Staple line with fluid collection underneath today that is new. Constitutional: Denies: Chills, Fever Eyes: Denies: Vision change ENT: Denies: Head Aches Pulmonary: Denies: Dyspnea, Cough Cardiovascular: Denies: Chest Pain, Palpitations Gastrointestinal: Denies: Nausea, Vomiting, Abdominal Pain, Diarrhea, Constipation Objective Physical Examination General Exam: Positive: Alert (sitting up in chair - sleepy, but arousable and seems oriented. ), Cooperative, No Acute Distress Eye Exam: Positive: PERRLA, EOMI, Negative: Sclera icteric ENT Exam: Positive: Other ENT (staple line on left occipital region with vickie intact. Approx 2 cm fluid collection behind her left ear under incision site. No drainage currently. Soft, mobiloe and non-tender) Neck Exam: Negative: Lymphadenopathy Chest Exam: Positive: Clear to auscultation Heart Exam: Positive: Rate Normal, Regular Rhythm Abdomen Exam: Positive: Normal bowel sounds, Soft, Negative: Tenderness Neuro Exam: Positive: Normal Speech, Strength at 5/5 X4 ext Psych Exam: Positive: Mental status NL, Negative: Memory Intact (some deficits with short term memory) Assessment /Plan Problems (1) Brain mass Problem Specific Plan: Consult Specialist, Monitor Clinically, Repeat Labs Problem Text: 12/11 - s/p craniotomy resection of brain mass on 11/[address] Jordan. Staff has contacted regarding fluid collection under vickie/inscision - he will see her today. Of note: Head CT 12/09 on day of her fall when she hit her head showed improved edema and resolution of small hemorrhage and pneumocephalus In the meantime,she continues on Decadron po and Keppra Following with Oncology for chemo/RT 12/01/16- POD #7. Pathology results: Glioblastoma. Patient will continue on PT/ OT today. Plan for discharge to acute rehabilitation; current insurance does not allow for rehabilitation at [facility]. Discharge pending approval for acute rehabilitation center. Will change patient to SNF status today. Decadron was changed from IV to by mouth 11/30/16 - POD #6. Pathology still pending. Continue P/T and O/T as needed. The goal is strengthening and healing before chemo and radiation start. Dr. Jordan says it can start whenever the oncologists determine appropriate. She is ready from his perspective. 11/29/2016- POD #5. Pathology is still pending. Patient is continuing with physical therapy. Her thought process and speech are improved from yesterday. Her speech is more fluid. Her thoughts seem more organized. Patient states that she recognizes me today, although she did not recall my name. 11/28 POD # 4. Pathology is pending. Patient continues to have therapy. Her speech and thought process seem appropriate today, although slightly worse than yesterday with some word searching. 11/27- POD #3 s/p left posterior temporal parietal craniotomy with resection of mass, cranioplasty and left ventriculostomy performed by Dr Jordan. Path pending. Patient doing well today. Her speech and thought process seem appropriate today. Patient was seen by both oncology and radiation oncology today. They plan on discussing further treatment with the patient after she is discharged from the hospital and finishes rehabilitation. 11/26 - POD #2. Pt s/p left posterior temporal parietal craniotomy with resection of mass, cranioplasty and left ventriculostomy performed by Dr Jordan. Path pending. 11/25/14: POD #1 - doing very well. Awake and alert. Interacting appropriately with nursing and family. Neurosurgery has changed her to q2h Neurochecks. She had a repeat scan today. She may be downgraded to PCU status today. 11/24/16:Postop: left posterior temporal-parietal craniotomy with resection of mass, cranioplasty, and left lateral ventriculostomy performed by Dr. Jordan. Awaiting pathology results. Patient comfortable after procedure. Remains confused. Pt transferred to ICU for care. 11/21/16: start Olanzapaine. Continue to wait on second opinion pathology at from [facility]. Discuss with neurosurgery Keppra dosing adjustment 11/20/16: awaiting results from [facility], may need further surgical intervention. Noting some MS and behavior changes. Will arrange for psychiatry eval for medical decision making capabilities and insight. Discussed case with patient's daughter Kait, who agrees with plan. ? behavior changes related to Keppra. Continue to wait for pathology. Neurosurgery following. 11/15/16: Dr. Jordan has been consulted for a second opinion. Dr. Andres is out of town for a week. Dr. Jordan would like to wait until the official read of the brain biopsy is back before he makes a final decision that it's nondiagnostic; he recalls incidences where the frozen section has not been diagnostic but they were able to get a little more out of the fully fixed section to make a diagnosis. 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 There is an area of increased signal intensity in the medial left parietal lobe with associated mass effect. This is suspicious for a low grade glioma. Small vessel ischemic disease. Mild volume loss. CT Chest and Abd/pel were obtained to search for primary. CT Chest: 14 mm nodule in the anterior segment of the right lower lobe, not present on the comparison study. CT Abd/pel: No mass, adenopathy, or ascites. Chronic thickening of the terminal ileum, unchanged. Fat-containing ventral hernia, unchanged. Small hiatal hernia , unchanged. No lytic, blastic or destructive skeletal changes. Degenerative disc disease in the lumbar spine. Bilateral hip osteoarthritis, worse on the left. (2) Lung nodule Discussed With: Patient, Family with Pt Consent Problem Text: Patient has a 14 mm nodule in the right lower lobe. Patient was set up for biopsy of the nodule to rule out primary lesion. The nodule could not be biopsied by interventional radiology secondary to size. Dr. Morales noted that the lesion was unlikely a primary metastatic lesion. Patient proceeded to have a biopsy of her brain mass which resulted in glioblastoma. Lung nodule will need to be followed as outpatient. 11/24/2016: I reconfirmed this assessment with Dr. 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 (endoscopy technican) 11/19/16: Per Interventional Rad: most likely not a primary. Proceed with brain mass bx and pathology prior to lung nodule eval. 11/17/2016: Pulmonology, informal consult, advised against bronchoscopy. Recommends interventional to see if can get to nodule. Dr. Jordan is requesting that we strongly consider working up this lung nodule while she is in the hospital. He has a strong clinical suspicion that the brain lesion is metastatic. Additionally if she has a primary lung cancer it may change his recommendation to do an excisional bx of the brain lesion which almost assuredly leave her with some weakness and speech deficits. Tomorrow we should contact IR and/or Pulm to see whether CT guided bx or navigational bronchoscopy with bx is the best way to get a sample of this lesion. ------ CT Chest: 14 mm nodule in the anterior segment of the right lower lobe, not present on the comparison study. (3) Brain compression Status: Acute Response to Treatment: Controlled Problem Specific Plan: Monitor Clinically Problem Text: Dr. Jordan, brain edema and swelling treated with the left lateral ventriculostomy on 11/24/16. (4) HTN (hypertension) Status: Chronic Problem Specific Plan: Monitor Clinically Problem Text: BP is well controlled today. Continue current regimen, monitor. (5) CAD (coronary artery disease) Status: Chronic Problem Specific Plan: Monitor Clinically Problem Text: Per Neurosurgeon, Plavix to be held 72hrs after procedure. (6) COPD (chronic obstructive pulmonary disease) Status: Chronic Problem Specific Plan: Monitor Clinically Problem Text: Stable (7) Hyperlipidemia Status: Chronic Problem Specific Plan: Monitor Clinically Problem Text: On Crestor. (8) Anemia Status: Chronic Problem Specific Plan: Monitor Clinically Problem Text: On Supplemental B12 and Iron. (9) Leukocytosis Status: Acute Problem Text: WBCs trending down today. Likely steroid induced. No signs of infectious process. Continue to monitor. Plan/VTE VTE Prophylaxis Ordered?: Yes (TEDs and SCDs) VTE Exclusion Pharmacological: Bleeding Risk (intracranial procedure) Plan Anticipated Discharge: Home With Services (based on therapy's recommendation) VS, I&O, 24H, Fishbone Vital Signs/I&O Vital Signs Date Time Temp Pulse Resp B/P (MAP) Pulse Ox O2 Delivery O2 Flow Rate FiO2 12/11/16 08:13 60 138/70 12/11/16 07:16 98 Nasal Cannula 2.0 12/11/16 06:00 97.4 15 I&O- Last 24 Hours up to 6 AM 12/12/16 06:00 Intake Total 0 ml Balance 0 ml Laboratory Data 24H LABS Laboratory Tests 2 12/11/16 06:38: Immature Granulocyte % (Auto) , Nucleated Red Blood Cells % (auto) 0.0, Neutrophils 81H, Lymphocytes (Manual) 15L, Monocytes (Manual) 1, Myelocytes 3H, Platelet Estimate NORMAL, Clumped Platelets SMALL AMT, Anisocytosis 1+, Anion Gap 8, Glomerular Filtration Rate > 60.0, Blood Urea Nitrogen 28H, Creatinine 0.51L, Sodium Level 138, Potassium Level 4.6, Chloride Level 102, Carbon Dioxide Level 28, Calcium Level 9.0, Aspartate Amino Transf (AST/SGOT) 11, Alanine Aminotransferase (ALT/SGPT) 31, Alkaline Phosphatase 47, Total Bilirubin 0.5, Total Protein 5.9L, Albumin 2.8L, Albumin/Globulin Ratio 0.90L CBC/BMP Laboratory Tests 12/11/16 06:38 Red Blood Count 4.20, Mean Corpuscular Volume 83.3, Mean Corpuscular Hemoglobin 26.9 L, Mean Corpuscular Hemoglobin Concent 32.3, Red Cell Distribution Width 15.3 H, Calcium Level 9.0, Aspartate Amino Transf (AST/SGOT) 11, Alanine Aminotransferase (ALT/SGPT) 31, Alkaline Phosphatase 47, Total Bilirubin 0.5, Total Protein 5.9 L, Albumin 2.8 L NEVAEH MORROW PA-C Dec 11, 2016 10:41
[2016-12-11] MEDS: traMADol 50 MG TAB PO PRN ×2 (12:51→20:27)
--- NOTE | 2016-12-11 13:07 | REP ---
CT Head without contrast HISTORY: Altered mental status COMPARISON: 12/09/2016 The patient is status post left temporal parietal craniotomy and resection of a left temporal lobe tumor. An area of decreased attenuation is present in the posterior left temporal lobe. There is minimal mass effect on the the left atrium occipital horn and posterior body of the left lateral ventricle. This represents postoperative and a vasogenic edema. There is no intraparenchymal hemorrhage or midline shift. There is no hydrocephalus or extra cerebral collection. There is no extra cerebral collection. . The visualized sinuses are clear. Soft tissue swelling and fluid present at the craniotomy site that is slightly increased compared to the previous study. IMPRESSION: 1. The patient is status post resection of a left upper lobe tumor. Postoperatively vasogenic edema are present with minimal mass effect on the left lateral ventricle. There is no midline shift. 2. There is slight increased soft tissue swelling and fluid at the craniotomy site. Signed by Elias Ruelas MD 12/11/2016 12:59 P
[2016-12-11 14:00] VITALS: BP 112/62
[2016-12-11] MEDS: ACETAMINOPHEN 500 MG TAB PO PRN (14:07)
[2016-12-11] MEDS: ROSUVASTATIN 10 MG TAB (CRESTOR) PO SCH (20:25)
[2016-12-11] MEDS: OLANZapine 2.5MG TABLET PO SCH (20:26)
[2016-12-12 06:00] VITALS: BP 140/78
[2016-12-12] MEDS: ADVAIR HFA 115/21MCG INHALER INH SCH ×2 (08:02→19:34)
[2016-12-12] MEDS: NYSTATIN 500,000 U/5 ML SUSP UDC SS SCH ×4 (09:00→20:50)
[2016-12-12] MEDS: NYSTATIN 100,000 UNITS/GM TOPICAL PWD 15 GM TOP SCH ×2 (09:00→20:53)
[2016-12-12] MEDS ORDERED: PROHANCE 279.3MG/ML 5ML VIAL (A9576) As Ordered ONE (11:47)
[2016-12-12] MEDS ORDERED: PROHANCE 279.3MG/ML 15ML VIAL (A9576) As Ordered ONE (11:47)
[2016-12-12] MEDS: MIRALAX *UNIT DOSE* 17GM PACKET PO SCH (13:00)
[2016-12-12] MEDS: PANTOPRAZOLE 40MG TAB (PROTONIX) PO SCH (13:04)
[2016-12-12] MEDS: levETIRAcetam 250MG TABLET (KEPPRA) PO SCH ×2 (13:04→20:52)
[2016-12-12] MEDS: CYANOCOBALAMIN 500 MCG TAB PO SCH (13:04)
[2016-12-12] MEDS: BISOPROLOL FUMARATE 5 MG TAB PO SCH ×2 (13:05→20:51)
[2016-12-12] MEDS: LORATADINE 10 MG TAB PO SCH (13:05)
[2016-12-12] MEDS: CALCIUM/VITAMIN D 500 MG TAB PO SCH ×2 (13:06→20:52)
[2016-12-12] MEDS: FERROUS GLUCONATE 324 MG TAB PO SCH (13:06)
[2016-12-12] MEDS: IRBESARTAN 150 MG TAB PO SCH ×2 (13:07→20:51)
--- NOTE | 2016-12-12 13:18 | REP ---
MR BRAIN WITHOUT AND WITH CONTRAST: HISTORY: Temporal lobe tumor. CONTRAST: ProHance 15 mL. COMPARISON: MR dated 11/12/[address] 12/11/2016. The patient is status post left temporoparietal craniectomy. Mixed signal intensity representing subacute and chronic hemorrhage and edema on T2- weighted images is present in the posterior left temporal lobe. There is mild irregular ring like enhancement with contrast material, this measures 3.1 cm in transverse x 4.4 cm in AP x 3.0 cm in cephalocaudal dimensions and is slightly increased in size compared to the previous MR. A small amount of surrounding vasogenic edema is present that is decreased compared to the previous study. There is mass effect with partial effacement of the atrium and occipital horn of the left lateral ventricle. There is no midline shift. There is no hydrocephalus or extracerebral collection. A small chronic 3 mm subdural fluid collection is present overlying the posterior left temporal lobe. A small subgaleal fluid collection is present at the craniectomy site. This measures 5 mm in width. The collection is of cerebral spinal fluid signal intensity on all pulse sequences. IMPRESSION: 1. The patient is status post resection of a left temporal lobe tumor. There is irregular peripheral increased signal intensity that may represent subacute hemorrhage , tumor enhancement or a combination of both. Residual tumor cannot be excluded. There is minimal mass effect without midline shift. A repeat MR examination in several weeks is recommended. 2. There is a small chronic 3 mm subdural fluid collection overlying the posterior left temporal lobe. 3. There is a 5 mm subgaleal fluid collection that is cerebral spinal fluid signal intensity on all the pulse sequences. Unreviewed MTDD
[2016-12-12] MEDS: traMADol 50 MG TAB PO PRN (14:04)
[2016-12-12] MEDS: ROSUVASTATIN 10 MG TAB (CRESTOR) PO SCH (20:50)
[2016-12-12] MEDS: OLANZapine 2.5MG TABLET PO SCH (20:50)
[2016-12-13] MEDS: ACETAMINOPHEN 500 MG TAB PO PRN ×3 (01:03→17:21)
[2016-12-13 06:00] VITALS: BP 141/69
[2016-12-13] MEDS: ADVAIR HFA 115/21MCG INHALER INH SCH ×2 (08:03→19:17)
[2016-12-13] MEDS: FERROUS GLUCONATE 324 MG TAB PO SCH (09:51)
[2016-12-13] MEDS: PANTOPRAZOLE 40MG TAB (PROTONIX) PO SCH (09:51)
[2016-12-13] MEDS: levETIRAcetam 250MG TABLET (KEPPRA) PO SCH ×2 (09:51→20:40)
[2016-12-13] MEDS: CALCIUM/VITAMIN D 500 MG TAB PO SCH ×2 (09:52→20:40)
[2016-12-13] MEDS: CYANOCOBALAMIN 500 MCG TAB PO SCH (09:52)
[2016-12-13] MEDS: BISOPROLOL FUMARATE 5 MG TAB PO SCH ×2 (09:52→20:43)
[2016-12-13] MEDS: MIRALAX *UNIT DOSE* 17GM PACKET PO SCH (09:54)
[2016-12-13] MEDS: NYSTATIN 100,000 UNITS/GM TOPICAL PWD 15 GM TOP SCH ×2 (09:54→20:43)
[2016-12-13] MEDS: NYSTATIN 500,000 U/5 ML SUSP UDC SS SCH ×4 (09:54→20:39)
[2016-12-13] MEDS: LORATADINE 10 MG TAB PO SCH (09:54)
[2016-12-13] MEDS: IRBESARTAN 150 MG TAB PO SCH ×2 (09:54→20:42)
[2016-12-13] MEDS: traMADol 50 MG TAB PO PRN ×2 (12:08→20:46)
[2016-12-13] MEDS: ROSUVASTATIN 10 MG TAB (CRESTOR) PO SCH (20:40)
[2016-12-13] MEDS: OLANZapine 2.5MG TABLET PO SCH (20:40)
--- NOTE | 2016-12-13 22:14 | CR ---
DATE OF CONSULTATION: 12/12/2016 Asked to consult for Dr. Jordan evaluation of possible brain infection. HISTORY OF PRESENT ILLNESS: Mrs. Santos is a pleasant 76-year-old female who was admitted to the hospital with a left temporoparietal mass. She had a stereotactic biopsy done on November [address] Andres. Received perioperatively intravenous (IV) vancomycin times three doses. The biopsy was not conclusive, but there was a suspicion of a high-grade glioma. On November 24, Dr. Jordan took her the operating room, where he had large resection of the brain tumor. A wound culture intraoperatively was done and was negative. She was received one dose of clindamycin perioperatively. On November 28, the patient had a temperature of 101.1 that resolved within 24 hours. Since then, she has been afebrile for the past 2 weeks. Her white count has slowly improved. It was 22.4 on December 04. The patient was on IV Decadron, and currently her white count is down to 15. Today there was some concern of confusion and abnormal MRI findings, and therefore I was consulted. She had an erythrocyte sedimentation rate (ESR) which was 6, CRP less than 0.3. The patient feels well. She states she is feeling much better compared to 2 weeks ago. She denies any headache or neck stiffness. No nausea, vomiting, or diarrhea. No abdominal pain. No fever or chills. Once in a while, she states she vomits if she eats too fast, because she has achalasia. PAST MEDICAL HISTORY: Significant for: 1. High-grade glioma of the brain, recently diagnosed. 2. Hypertension. 3. Coronary artery disease. 4. Chronic obstructive pulmonary disease (COPD). 5. Hyperlipidemia. 6. Anemia. ALLERGIES: Alcohol, CALCIUM CHANNEL BLOCKERS, CLAVULANIC ACID, MEPERIDINE, PENICILLIN, CARBOLXYLENE, QUINOLONES, SULFA DRUGS. CURRENT MEDICATIONS: - nystatin swish and swallow - Decadron 2 mg by mouth every 8 hours - morphine 2 mg IV every 6 as needed - Zyprexa 2.5 mg by mouth at bedtime - tramadol 50 mg by mouth every 6 as needed - nystatin topical to groin area - calcium/Tums 1000 mg by mouth every 4 as needed - MiraLax one packet daily - Protonix 40 mg daily - ferrous gluconate 325 mg by mouth daily - loratadine 10 mg by mouth daily - cyanocobalamin 1000 mcg daily - Zebeta 5 mg by mouth twice a day - Avapro 150 mg by mouth twice a day - Advair HFA two puffs inhaled twice a day - Crestor 20 mg by mouth at bedtime - amlodipine 2.5 mg by mouth twice a day - Keppra 500 mg by mouth twice a day - Os-Roscoe with vitamin D 500 mg by mouth twice a day - Tylenol as needed LABORATORY DATA: White count 15, down from 22.4 a week ago, hemoglobin 11.3, hematocrit 35, platelets 176, 81% neutrophils, 15% lymphocytes, 3% myelocytes. ESR 6. Sodium 138, potassium 4.6, chloride 102, bicarbonate 28, BUN 28, creatinine 0.5, glucose 112, calcium 9. AST 11, ALT 31, total protein 5.9, albumin 2.8. CRP less than 0.3. Microbiology: Wound culture was done on November 24 with no growth. IMAGING STUDY: MRI of the brain done on December 12 shows resection of the left temporal lobe tumor with irregular peripheral increasing low intensity that may represent subacute hemorrhage, tumor enhancement, or both. Residual tumor cannot be excluded. There is minimal mass effect without midline shift. A repeat MRI is recommended in a few weeks. Small chronic 3 mm subdural collection overlying the posterior temporal lobe. There is a 5 mm subgaleal fluid collection that is cerebrospinal fluid (CSF) signal intensity as well. PHYSICAL EXAM: Temperature is 96.9, pulse 54, respirations 19, blood pressure 140/78, oxygen saturation 97% on room air. HEART: Normal S1, S2. No murmurs, rubs, or gallops. LUNGS: Clear. No wheezes, rales, or rhonchi. ABDOMEN: Obese, soft, nontender. No hepatosplenomegaly. BACK: No costovertebral angle (CVA) or lumbosacral tenderness. EXTREMITIES: No clubbing, cyanosis, or edema. No rashes. NECK: Supple. No tenderness. No stiffness. Left scalp has a large incision with sutures in place. There is no erythema or redness. Motor strength is normal. The patient is alert and oriented times three. IMPRESSION: This is a 76-year-old female who underwent stereotactic biopsy on November 14 and a larger resection of a high-grade glioblastoma on November 24. Intraoperative culture on November 24 was negative. The patient spiked one temperature on November 28 for less than 24 hours. She has been afebrile for the past 2 weeks. The patient only received perioperatively antibiotic for surgical prophylaxis. She feels great. She denies any complaints today. Her white count is improving on Decadron. Her C-reactive protein (CRP) and sedimentation rate are normal. I do not see any focus of infection. PLAN: Will continue to monitor. If the patient develops headaches, fever, then lumbar puncture would be indicated, but in the meantime I do not see any reason for her to be on antibiotic, and there is no evidence of infection. Thank you for consultation.
[2016-12-14 02:50] VITALS: BP 133/66
[2016-12-14 06:00] VITALS: BP 125/63
[2016-12-14] MEDS: ADVAIR HFA 115/21MCG INHALER INH SCH ×2 (07:10→19:26)
[2016-12-14] MEDS: levETIRAcetam 250MG TABLET (KEPPRA) PO SCH ×2 (09:46→22:51)
[2016-12-14] MEDS: CYANOCOBALAMIN 500 MCG TAB PO SCH (09:46)
[2016-12-14] MEDS: CALCIUM/VITAMIN D 500 MG TAB PO SCH ×2 (09:47→22:50)
[2016-12-14] MEDS: FERROUS GLUCONATE 324 MG TAB PO SCH (09:47)
[2016-12-14] MEDS: PANTOPRAZOLE 40MG TAB (PROTONIX) PO SCH (09:48)
[2016-12-14] MEDS: IRBESARTAN 150 MG TAB PO SCH ×2 (09:48→21:00)
[2016-12-14] MEDS: BISOPROLOL FUMARATE 5 MG TAB PO SCH ×2 (09:48→21:00)
[2016-12-14] MEDS: NYSTATIN 500,000 U/5 ML SUSP UDC SS SCH ×4 (09:48→22:51)
[2016-12-14] MEDS: MIRALAX *UNIT DOSE* 17GM PACKET PO SCH (09:49)
[2016-12-14] MEDS: NYSTATIN 100,000 UNITS/GM TOPICAL PWD 15 GM TOP SCH ×2 (09:49→22:51)
[2016-12-14] MEDS: LORATADINE 10 MG TAB PO SCH (09:49)
[2016-12-14] MEDS: ACETAMINOPHEN 500 MG TAB PO PRN (12:27)
[2016-12-14] MEDS: traMADol 50 MG TAB PO PRN ×2 (16:11→22:50)
[2016-12-14 22:00] VITALS: BP 100/58
[2016-12-14] MEDS: ROSUVASTATIN 10 MG TAB (CRESTOR) PO SCH (22:50)
[2016-12-14] MEDS: OLANZapine 2.5MG TABLET PO SCH (22:50)
[2016-12-15] MEDS: traMADol 50 MG TAB PO PRN ×3 (03:32→21:52)
[2016-12-15 06:00] LABS: MEAN CORPUSCULAR HEMOGLOBIN 27.3 pg (27.0-33.0); MEAN CORPUSCULAR HGB CONC 32.4 g/dl (32.0-36.5); MEAN CORPUSCULAR VOLUME 84.1 fl (80.0-96.0); PLATELET COUNT, AUTOMATED 180 10^3/uL (150-450); RED CELL DISTRIBUTION WIDTH 15.9 % (11.5-14.5); WHITE BLOOD COUNT 15.3 10^3/uL (4.0-10.0)
[2016-12-15 06:13] LABS: ADD MANUAL DIFFER YES; DIFF SLIDE NUMBER 7; POS COUNT POS FLAG; POSITIVE MORPH POS FLAG
--- NOTE | 2016-12-15 06:14 | IPN ---
DATE: 12/14/2016 I was called by nursing staff around 3:00 in the morning last night because the patient was "hard to wake up." I pointed out that it was 3:00 in the morning. This morning, she is lying in bed. She awakes easily. Answers questions appropriately and her mental status seems unremarkable.
[2016-12-15 06:33] LABS: ALBUMIN 3.2 GM/DL (3.2-5.2); ALKALINE PHOSPHATASE 51 U/L (45-117); ALT/SGPT 38 U/L (12-78); ANION GAP 7 MEQ/L (8-16); AST/SGOT 14 U/L (7-37); BILIRUBIN,TOTAL 0.6 MG/DL (0.2-1.0); BLOOD UREA NITROGEN 33 MG/DL (7-18); CALCIUM LEVEL 9.1 MG/DL (8.8-10.2); CARBON DIOXIDE LEVEL 27 MEQ/L (21-32); CHLORIDE LEVEL 100 MEQ/L (98-107); CREATININE FOR GFR 0.58 MG/DL (0.55-1.02); GLOMERULAR FILTRATION RATE > 60.0 (>39); GLUCOSE, FASTING 139 MG/DL (83-110); POTASSIUM SERUM 4.9 MEQ/L (3.5-5.1); SODIUM LEVEL 134 MEQ/L (136-145); TOTAL PROTEIN 6.1 GM/DL (6.4-8.2)
[2016-12-15 07:39] LABS: BANDS 2 % (< 11)
[2016-12-15 07:40] LABS: ANISOCYTOSIS 1+; POIKILOCYTOSIS 1+
[2016-12-15] MEDS: ADVAIR HFA 115/21MCG INHALER INH SCH ×2 (08:37→19:26)
[2016-12-15] MEDS: levETIRAcetam 250MG TABLET (KEPPRA) PO SCH ×2 (08:43→21:12)
[2016-12-15] MEDS: PANTOPRAZOLE 40MG TAB (PROTONIX) PO SCH (08:43)
[2016-12-15] MEDS: NYSTATIN 500,000 U/5 ML SUSP UDC SS SCH ×4 (08:43→21:11)
[2016-12-15] MEDS: MIRALAX *UNIT DOSE* 17GM PACKET PO SCH (08:43)
[2016-12-15] MEDS: FERROUS GLUCONATE 324 MG TAB PO SCH (08:48)
[2016-12-15] MEDS: CYANOCOBALAMIN 500 MCG TAB PO SCH (08:48)
[2016-12-15] MEDS: LORATADINE 10 MG TAB PO SCH (08:48)
[2016-12-15] MEDS: CALCIUM/VITAMIN D 500 MG TAB PO SCH ×2 (08:50→21:13)
[2016-12-15] MEDS: IRBESARTAN 150 MG TAB PO SCH ×2 (09:00→21:11)
[2016-12-15] MEDS: BISOPROLOL FUMARATE 5 MG TAB PO SCH ×2 (09:00→21:13)
[2016-12-15] MEDS: NYSTATIN 100,000 UNITS/GM TOPICAL PWD 15 GM TOP SCH ×2 (09:01→21:13)
[2016-12-15] MEDS: ACETAMINOPHEN 500 MG TAB PO PRN ×2 (09:15→16:56)
[2016-12-15] MEDS: ROSUVASTATIN 10 MG TAB (CRESTOR) PO SCH (21:12)
[2016-12-15] MEDS: OLANZapine 2.5MG TABLET PO SCH (21:12)
[2016-12-16] MEDS: ACETAMINOPHEN 500 MG TAB PO PRN ×2 (00:36→12:36)
[2016-12-16 06:00] VITALS: BP 108/56
[2016-12-16] MEDS: ADVAIR HFA 115/21MCG INHALER INH SCH ×2 (07:05→19:54)
[2016-12-16] MEDS: MIRALAX *UNIT DOSE* 17GM PACKET PO SCH (08:24)
[2016-12-16] MEDS: NYSTATIN 500,000 U/5 ML SUSP UDC SS SCH ×2 (08:24→13:54)
[2016-12-16] MEDS: CALCIUM/VITAMIN D 500 MG TAB PO SCH ×2 (08:25→20:09)
[2016-12-16] MEDS: FERROUS GLUCONATE 324 MG TAB PO SCH (08:25)
[2016-12-16] MEDS: IRBESARTAN 150 MG TAB PO SCH ×2 (08:25→20:09)
[2016-12-16] MEDS: PANTOPRAZOLE 40MG TAB (PROTONIX) PO SCH (08:25)
[2016-12-16] MEDS: LORATADINE 10 MG TAB PO SCH (08:25)
[2016-12-16] MEDS: CYANOCOBALAMIN 500 MCG TAB PO SCH (08:25)
[2016-12-16] MEDS: levETIRAcetam 250MG TABLET (KEPPRA) PO SCH ×2 (08:25→20:09)
[2016-12-16] MEDS: BISOPROLOL FUMARATE 5 MG TAB PO SCH ×2 (08:25→20:09)
[2016-12-16] MEDS: NYSTATIN 100,000 UNITS/GM TOPICAL PWD 15 GM TOP SCH ×2 (08:26→20:10)
[2016-12-16] MEDS: traMADol 50 MG TAB PO PRN ×3 (09:45→20:17)
[2016-12-16] MEDS: ROSUVASTATIN 10 MG TAB (CRESTOR) PO SCH (20:09)
[2016-12-16] MEDS: OLANZapine 2.5MG TABLET PO SCH (20:09)
--- NOTE | 2016-12-16 22:53 | EEG ---
DATE OF PROCEDURE: 12/15/2016 REFERRING PHYSICIAN: Tushar Barr MD DIAGNOSIS: Vomiting. [id number] HISTORY: The patient is a 76-year-old woman who was admitted at [facility] due to frequent vomiting. The patient has history of brain tumor and is status post craniectomy. This EEG was done to rule out epileptic potential. She is currently taking Keppra, Claritin, Protonix, Crestor, olanzapine, and dexamethasone. TECHNICAL DESCRIPTION: This digital EEG was recorded by 21 scalp, ear and two EKG electrodes and was reviewed in bipolar and referential montages following reformatting in 10-20 international electrode placement system. INTERPRETATION: The patient remained awake throughout this testing. She complained of pain and cried reportedly during this EEG. Background rhythm consisted of 8 Hz alpha activity measuring 15-40 microvolts in amplitude, which was symmetric and reactive to eye opening. No sleep was achieved. Excessive muscle artifact was noted in frontal and temporal head regions bilaterally throughout this study. Photic stimulation remained unremarkable. Hyperventilation could not be performed. EKG revealed normal sinus rhythm. No focal, lateralizing or epileptiform abnormalities were seen. CONCLUSION: This is a technically limited study due to almost continuous muscle artifact in bilateral temporal and frontal head regions and background rhythm appears normal on readable portions of this EEG. If clinical suspicion for seizures remains high, a repeat EEG should be considered.
[2016-12-17 06:00] VITALS: BP 119/58
[2016-12-17] MEDS: traMADol 50 MG TAB PO PRN ×3 (06:17→16:02)
[2016-12-17] MEDS: ADVAIR HFA 115/21MCG INHALER INH SCH ×2 (08:33→19:12)
[2016-12-17] MEDS: MIRALAX *UNIT DOSE* 17GM PACKET PO SCH (09:50)
[2016-12-17] MEDS: NYSTATIN 100,000 UNITS/GM TOPICAL PWD 15 GM TOP SCH ×2 (09:50→21:07)
[2016-12-17] MEDS: CALCIUM/VITAMIN D 500 MG TAB PO SCH ×2 (09:51→21:06)
[2016-12-17] MEDS: levETIRAcetam 250MG TABLET (KEPPRA) PO SCH ×2 (09:51→21:06)
[2016-12-17] MEDS: FERROUS GLUCONATE 324 MG TAB PO SCH (09:51)
[2016-12-17] MEDS: LORATADINE 10 MG TAB PO SCH (09:52)
[2016-12-17] MEDS: CYANOCOBALAMIN 500 MCG TAB PO SCH (09:52)
[2016-12-17] MEDS: BISOPROLOL FUMARATE 5 MG TAB PO SCH ×2 (09:53→21:07)
[2016-12-17] MEDS: PANTOPRAZOLE 40MG TAB (PROTONIX) PO SCH (09:54)
[2016-12-17] MEDS: IRBESARTAN 150 MG TAB PO SCH ×2 (09:54→21:06)
[2016-12-17] MEDS: ROSUVASTATIN 10 MG TAB (CRESTOR) PO SCH (21:06)
[2016-12-17] MEDS: OLANZapine 2.5MG TABLET PO SCH (21:06)
[2016-12-17] MEDS: ACETAMINOPHEN 500 MG TAB PO PRN (21:10)
[2016-12-18] MEDS: traMADol 50 MG TAB PO PRN ×2 (01:53→13:29)
[2016-12-18 06:00] VITALS: BP 140/68
[2016-12-18 06:33] LABS: MEAN CORPUSCULAR HGB CONC 32.6 g/dl (32.0-36.5); MEAN CORPUSCULAR VOLUME 82.9 fl (80.0-96.0); PLATELET COUNT, AUTOMATED 212 10^3/uL (150-450); WHITE BLOOD COUNT 17.4 10^3/uL (4.0-10.0)
[2016-12-18 06:36] LABS: ADD MANUAL DIFFER YES; DIFF SLIDE NUMBER 5; POS COUNT POS FLAG; POSITIVE DIFF POS FLAG; POSITIVE MORPH POS FLAG
[2016-12-18 07:02] LABS: ALBUMIN 3.2 GM/DL (3.2-5.2); ALBUMIN/GLOBULIN RATIO 0.94 (1.00-1.93); ALKALINE PHOSPHATASE 51 U/L (45-117); ALT/SGPT 32 U/L (12-78); ANION GAP 6 MEQ/L (8-16); AST/SGOT 14 U/L (7-37); BILIRUBIN,TOTAL 0.9 MG/DL (0.2-1.0); BLOOD UREA NITROGEN 24 MG/DL (7-18); CALCIUM LEVEL 9.2 MG/DL (8.8-10.2); CARBON DIOXIDE LEVEL 28 MEQ/L (21-32); CHLORIDE LEVEL 97 MEQ/L (98-107); CREATININE FOR GFR 0.56 MG/DL (0.55-1.02); GLOMERULAR FILTRATION RATE > 60.0 (>39); GLUCOSE, FASTING 95 MG/DL (83-110); POTASSIUM SERUM 4.7 MEQ/L (3.5-5.1); SODIUM LEVEL 131 MEQ/L (136-145); TOTAL PROTEIN 6.6 GM/DL (6.4-8.2)
[2016-12-18 07:04] LABS: ANISOCYTOSIS 1+
[2016-12-18] MEDS: ADVAIR HFA 115/21MCG INHALER INH SCH ×2 (07:30→20:04)
[2016-12-18] MEDS: MIRALAX *UNIT DOSE* 17GM PACKET PO SCH (07:56)
[2016-12-18] MEDS: levETIRAcetam 250MG TABLET (KEPPRA) PO SCH ×2 (08:00→21:07)
[2016-12-18] MEDS: PANTOPRAZOLE 40MG TAB (PROTONIX) PO SCH (08:01)
[2016-12-18] MEDS: LORATADINE 10 MG TAB PO SCH (08:01)
[2016-12-18] MEDS: CYANOCOBALAMIN 500 MCG TAB PO SCH (08:01)
[2016-12-18] MEDS: CALCIUM/VITAMIN D 500 MG TAB PO SCH ×2 (08:02→21:05)
[2016-12-18] MEDS: FERROUS GLUCONATE 324 MG TAB PO SCH (08:02)
[2016-12-18] MEDS: BISOPROLOL FUMARATE 5 MG TAB PO SCH ×2 (08:03→21:06)
[2016-12-18] MEDS: NYSTATIN 100,000 UNITS/GM TOPICAL PWD 15 GM TOP SCH ×2 (08:04→21:08)
[2016-12-18] MEDS: IRBESARTAN 150 MG TAB PO SCH ×2 (08:04→21:08)
[2016-12-18 09:45] VITALS: BP 142/67
--- NOTE | 2016-12-18 09:58 | IPNPDOC ---
Text Note Date of Service The patient was seen on 12/18/16. NOTE Subjective : Was called to evaluate the patient. She was having tremors in her hands and started having a stutter in her speech when working with PT this morning. No LOC. Patient had head and jaw pain on the L side, was given tramadol around 02: 00 and was more comfortable sitting upright. Patient spent the morning hours sitting upright instead of sleeping like as she usually does. This morning, the patient was more lethargic than her usual state. She is lying down in bed. She was able to answer some questions appropriately. Objective: Gen: NAD VS: see below. HEENT: surgery site intact, no erythema or discharge. CV: RRR Resp: clear b/l Abd: non tender, normoactive BS. Ext: no swelling in the LE Neuro: good muscle strength throughout. No sensory deficits. Some slight tremors in her hands which resolved. Lethargic, oriented to person and place but not time. CN II-XII grossly intact. Glucose: 101 Assessment/Plan: 76 y/o F with UE tremors and lethargy. Tremors in UE. Possible seizure activity. She did not lose consciousness. Will check Keppra levels. Neurologically intact on exam. She remains lethargic. She was given Tramadol early this morning and did not have as much sleep as previous nights which can be contributing to her fatigue. Neurosurgery is aware of her status. Patient has slight hyponatremia. Has trended low in the past. Will check urine osmolality. Head CT was ordered. Neurology consulted, appreciate input. Will increase Keppra dose to 1,000mg BID. R/o infectious source, pt has chronic leukocytosis from steroid dose. Will check lactic acid. UA and Urine culture ordered. Was evaluated by ID on 12/13/16 for possible infection, they did not see a reason to start antibiotics at that time. Reconsulted Dr. Castillo. Pt has UTI, started on nitrofurantoin. Pt has been afebrile. VS,Fishbone, I+O VS, Fishbone, I+O Laboratory Tests 12/18/16 06:22 Red Blood Count 4.44, Mean Corpuscular Volume 82.9, Mean Corpuscular Hemoglobin 27.0, Mean Corpuscular Hemoglobin Concent 32.6, Red Cell Distribution Width 16.0 H, Calcium Level 9.2, Aspartate Amino Transf (AST/SGOT) 14, Alanine Aminotransferase (ALT/SGPT) 32, Alkaline Phosphatase 51, Total Bilirubin 0.9, Total Protein 6.6, Albumin 3.2 Vital Signs Date Time Temp Pulse Resp B/P (MAP) Pulse Ox O2 Delivery O2 Flow Rate FiO2 12/18/16 08:04 135/80 12/18/16 08:03 90 12/18/16 06:00 98.3 19 96 Room Air 12/17/16 06:00 2.0 GME ATTESTATION GME ATTESTATION My preceptor for this patient encounter was physically present in the building during the encounter and was fully available. As needed, all aspects of the patient interview, examination, medical decision making process, and medical care plan development were reviewed and approved by the preceptor. Preceptor is aware and concurs with the plan as stated in the body of this note and will attest to such by his/her cosignature. CARRIE GARZA DO Dec 18, 2016 09:21
[2016-12-18 10:18] LABS: ANION GAP 6 MEQ/L (8-16); BLOOD UREA NITROGEN 24 MG/DL (7-18); CALCIUM LEVEL 9.1 MG/DL (8.8-10.2); CARBON DIOXIDE LEVEL 30 MEQ/L (21-32); CHLORIDE LEVEL 96 MEQ/L (98-107); CREATININE FOR GFR 0.58 MG/DL (0.55-1.02); GLOMERULAR FILTRATION RATE > 60.0 (>39); GLUCOSE, FASTING 95 MG/DL (83-110); POTASSIUM SERUM 4.1 MEQ/L (3.5-5.1); SODIUM LEVEL 132 MEQ/L (136-145)
[2016-12-18 11:16] LABS: OSMOLALITY URINE 634 MOSM/KG (500-800)
[2016-12-18] MEDS ORDERED: ONDANSETRON 4 MG ORAL DISINTEGRATING TAB (S0181) PO PRN (14:00)
[2016-12-18] MEDS: ONDANSETRON 4 MG ORAL DISINTEGRATING TAB (S0181) PO PRN (14:13)
--- NOTE | 2016-12-18 17:43 | REP ---
CT HEAD WITHOUT CONTRAST: HISTORY: Neurologic status change. COMPARISON: 12/11/2016 The patient is status post left temporoparietal craniotomy and resection of a left temporal lobe tumor. An areas of decreased attenuation is present in the posterior left temporal lobe. There is minimal mass effect on the posterior body and atrium of the left lateral ventricle that is decreased compared to the previous study. This represents postoperative change and edema. There is no intraparenchymal hemorrhage or midline shift. There is no hydrocephalus or extracerebral collection. The visualized sinuses are clear. Soft tissue swelling and fluid are present at the craniotomy site that appears slightly increased compared to the previous study. IMPRESSION: The patient is status post resection of a left temporal lobe tumor. There is postoperative change in the posterior left temporal lobe with decreased mass effect compared to the previous study. There is increased soft tissue swelling and fluid overlying the craniotomy site. Signed by Elias Ruelas MD 12/19/2016 08:26 A
[2016-12-18] MEDS: ROSUVASTATIN 10 MG TAB (CRESTOR) PO SCH (21:07)
[2016-12-18] MEDS: ACETAMINOPHEN 500 MG TAB PO PRN (21:07)
[2016-12-18] MEDS: OLANZapine 2.5MG TABLET PO SCH (21:07)
[2016-12-18] MEDS: NITROFURANTOIN (MACROBID) 100 MG CAP PO SCH (21:08)
[2016-12-18 22:00] VITALS: BP 118/59
[2016-12-19] VITALS (7 sets, daily range): BP systolic 82–124; BP diastolic 38–61
[2016-12-19 06:34] LABS: MEAN CORPUSCULAR HEMOGLOBIN 27.3 pg (27.0-33.0); MEAN CORPUSCULAR HGB CONC 32.8 g/dl (32.0-36.5); MEAN CORPUSCULAR VOLUME 83.2 fl (80.0-96.0); PLATELET COUNT, AUTOMATED 193 10^3/uL (150-450); RED CELL DISTRIBUTION WIDTH 16.1 % (11.5-14.5); WHITE BLOOD COUNT 11.4 10^3/uL (4.0-10.0)
[2016-12-19 06:59] LABS: ALBUMIN 3.1 GM/DL (3.2-5.2); ALBUMIN/GLOBULIN RATIO 1.07 (1.00-1.93); ALKALINE PHOSPHATASE 45 U/L (45-117); ALT/SGPT 26 U/L (12-78); ANION GAP 7 MEQ/L (8-16); AST/SGOT 12 U/L (7-37); BILIRUBIN,TOTAL 0.8 MG/DL (0.2-1.0); BLOOD UREA NITROGEN 28 MG/DL (7-18); CALCIUM LEVEL 9.4 MG/DL (8.8-10.2); CARBON DIOXIDE LEVEL 30 MEQ/L (21-32); CHLORIDE LEVEL 96 MEQ/L (98-107); CREATININE FOR GFR 0.75 MG/DL (0.55-1.02); GLOMERULAR FILTRATION RATE > 60.0 (>39); GLUCOSE, FASTING 115 MG/DL (83-110); POTASSIUM SERUM 4.6 MEQ/L (3.5-5.1); SODIUM LEVEL 133 MEQ/L (136-145)
[2016-12-19] MEDS: ADVAIR HFA 115/21MCG INHALER INH SCH ×2 (07:40→19:58)
[2016-12-19] MEDS: CYANOCOBALAMIN 500 MCG TAB PO SCH (08:14)
[2016-12-19] MEDS: MIRALAX *UNIT DOSE* 17GM PACKET PO SCH (08:14)
[2016-12-19] MEDS: LORATADINE 10 MG TAB PO SCH (08:16)
[2016-12-19] MEDS: NITROFURANTOIN (MACROBID) 100 MG CAP PO SCH (08:16)
[2016-12-19] MEDS: CALCIUM/VITAMIN D 500 MG TAB PO SCH ×2 (08:16→20:22)
[2016-12-19] MEDS: IRBESARTAN 150 MG TAB PO SCH ×2 (08:16→20:22)
[2016-12-19] MEDS: BISOPROLOL FUMARATE 5 MG TAB PO SCH ×2 (08:16→20:23)
[2016-12-19] MEDS: FERROUS GLUCONATE 324 MG TAB PO SCH (08:17)
[2016-12-19] MEDS: PANTOPRAZOLE 40MG TAB (PROTONIX) PO SCH (08:17)
[2016-12-19] MEDS: levETIRAcetam 250MG TABLET (KEPPRA) PO SCH ×2 (08:17→20:22)
[2016-12-19] MEDS: NYSTATIN 100,000 UNITS/GM TOPICAL PWD 15 GM TOP SCH ×2 (08:17→21:00)
[2016-12-19] MEDS: ONDANSETRON 4 MG ORAL DISINTEGRATING TAB (S0181) PO PRN (09:11)
--- NOTE | 2016-12-19 09:20 | CR ---
DATE OF CONSULTATION: 12/19/2016 REFERRING PROVIDER: Dr. Burnett REASON FOR CONSULTATION: Suspected seizure. Savanna Santos is a 76-year-old female with past medical history significant for left temporal lobe glioblastoma resected approximately 23 days ago. The patient presents with symptoms of worsening lethargy today. She had some shakiness of her upper extremities and she was thought to be postictal through the day. The patient currently does have a urinary tract infection and is quite lethargic. Her appetite is down. Her oral intake is down. The patient was recently started on Macrodantin. The patient presently is awake and oriented to person, place and time. She does not recall having seizures. The patient is currently on Keppra 500 mg twice a day for seizure prophylaxis. Plan was to go up on the Keppra to 1000 mg twice a day and obtaining an electroencephalogram (EEG). Head CT did not reveal any acute intracranial process other than persistence of meningioma status post resection, postoperative changes and cerebral edema. The patient likely has encephalopathy secondary to recurrent urinary tract infection (UTI) causing her lethargy. PAST MEDICAL HISTORY: 1. High-grade glioma of the brain recently diagnosed in left temporal lobe. 2. Hypertension. 3. Coronary artery disease. 4. Chronic obstructive pulmonary disease (COPD). 5. Hyperlipidemia. 6. Anemia. PAST SURGICAL HISTORY: Surgical resection of the glioblastoma. ALLERGIES: - ALCOHOL - CALCIUM CHANNEL BLOCKERS - CLAVULANIC ACID - MEPERIDINE - PENICILLIN - CARBOLXYLENE - QUINOLONES - SULFA DRUGS CURRENT MEDICATIONS: - Decadron 2 mg by mouth every 8 hours - morphine 2 mg IV every 6 hours as needed - Zyprexa 2.5 mg by mouth at bedtime - tramadol 50 mg by mouth every 6 hours as needed pain - Nystatin topical to groin area - calcium/Tums 1000 mg every 4 hours as needed - MiraLAX one packet daily - Protonix 40 mg by mouth daily - ferrous gluconate 325 mg by mouth daily - loratadine 10 mg by mouth daily - cyanocobalamin 1000 mcg by mouth daily - Zebeta 5 mg by mouth twice a day - Avapro 150 mg by mouth twice a day - Advair HFA 2 puffs inhaled twice a day - Crestor 20 mg by mouth at bedtime - amlodipine 2.5 mg by mouth twice a day - Keppra 500 mg by mouth twice a day - Os-Roscoe with vitamin D 500 mg by mouth twice a day - Tylenol as needed SOCIAL HISTORY: The patient denies use of any tobacco, alcohol or illicit drugs. REVIEW OF SYSTEMS: 14-point review of systems obtained and is negative except as per history of present illness (HPI). PHYSICAL EXAMINATION: Blood pressure is 140/68, pulse rate is 83, respiratory rate is 19, temperature 98.3 degrees Fahrenheit and oxygenation 96% on room air. Current height 5 feet 0 inches and current weight is 72.8 kg. The patient is awake, oriented to person and place, but not the correct year. The patient is able to follow commands. She is lethargic and can easily fall back asleep. She is able to demonstrate adequate strength in the arms and legs with normal sensation in all four extremities. Pupils are 3 mm, round, reactive to light. Extraocular movements appear to be intact in all directions. Sensation V1, V2 and V3 appears to be intact. No facial asymmetry on activation. Palate elevates symmetrically. Tongue is midline. Coordination does not reveal any ataxia or dysmetria. Deep tendon reflexes are 2s throughout, decreased in the lower extremities. Tone is normal in the arms and legs. ASSESSMENT: 1. Lethargy secondary to encephalopathy secondary to urinary tract infection (UTI). 2. Earlier in the day, tremulousness of the upper extremities without significant postictal state, cannot entirely exclude a seizure, though less likely, although go ahead and increase Keppra as planned. PLAN: 1. Increase Keppra 1000 mg by mouth twice a day. 2. Obtain EEG. 3. Treat underlying UTI which will gradually improve encephalopathy and lethargy. 4. Encourage good by mouth intake. 5. Continue supportive care as per primary team.
[2016-12-19] MEDS: ACETAMINOPHEN 500 MG TAB PO PRN (13:30)
[2016-12-19 14:17] LABS: ANION GAP 5 MEQ/L (8-16); BLOOD UREA NITROGEN 30 MG/DL (7-18); CALCIUM LEVEL 9.7 MG/DL (8.8-10.2); CARBON DIOXIDE LEVEL 30 MEQ/L (21-32); CHLORIDE LEVEL 95 MEQ/L (98-107); CREATININE FOR GFR 0.69 MG/DL (0.55-1.02); GLOMERULAR FILTRATION RATE > 60.0 (>39); GLUCOSE, FASTING 114 MG/DL (83-110); POTASSIUM SERUM 5.3 MEQ/L (3.5-5.1); SODIUM LEVEL 130 MEQ/L (136-145)
--- NOTE | 2016-12-19 14:39 | IPN ---
DATE: 12/18/2016 Dr. Jordan was concerned about this patient as she was having possible seizures. She was noted to be more lethargic this morning with a left hand tremor while working with physical therapy. She had some frequency although has no heme hematuria or dysuria. A urinalysis done this morning had +2 leukocyte esterase and many white cells compared to one done about 3 weeks ago that had +3 bacteria and positive nitrite. Urine was cloudy. White count had increased to 17.4 this morning from her baseline of 15, hemoglobin 12, hematocrit 36.8, platelets 212, sodium 132, potassium 4.1, chloride 96, bicarbonate 30, BUN 24, creatinine 0.5, glucose 95, calcium 9.1. Urine culture was sent and is pending. Medications: Keppra was started today at 1000 mg by mouth twice a day, Decadron is at 2 mg by mouth every 12 hours. PHYSICAL EXAMINATION: On physical exam, temperature 97.6, pulse 73, respirations 18, blood pressure 142/67, oxygen saturation 97% on room air. HEART: Normal S1, S2. No murmurs. LUNGS: Clear. No wheezes, rales or rhonchi. ABDOMEN: Soft, nontender. EXTREMITIES: No edema. BACK: No costovertebral angle tenderness. IMPRESSION 1. Tremors in the upper extremities, possibly seizures related to recent brain surgeries. The patient has been started on Keppra. 2. Frequency with abnormal urinalysis with many white cells and worsening leukocytosis. PLAN The patient has been started on nitrofurantoin 100 mg by mouth twice a day for a total of 5 days. Urine culture is pending. We will adjust depending on results. MTDD
[2016-12-19] MEDS ORDERED: NS 1,000 ML IV ONE (15:00)
[2016-12-19] MEDS: cefTRIAXone SOD 2 GM in D5W 50 ML IV SCH (15:59)
[2016-12-19] MEDS ORDERED: cefTRIAXone SOD 2 GM VIAL (J0696) IM SCH (16:00)
[2016-12-19 16:01] LABS: MEAN CORPUSCULAR HEMOGLOBIN 27.7 pg (27.0-33.0); PLATELET COUNT, AUTOMATED 184 10^3/uL (150-450); RED CELL DISTRIBUTION WIDTH 15.9 % (11.5-14.5); WHITE BLOOD COUNT 11.1 10^3/uL (4.0-10.0)
[2016-12-19 16:05] LABS: ADD MANUAL DIFFER YES; DIFF SLIDE NUMBER 268; POS COUNT POS FLAG; POSITIVE MORPH POS FLAG
[2016-12-19 16:30] LABS: PLATELET CLUMPS SMALL AMT
[2016-12-19 16:34] LABS: ANION GAP 9 MEQ/L (8-16); BLOOD UREA NITROGEN 32 MG/DL (7-18); CALCIUM LEVEL 8.5 MG/DL (8.8-10.2); CARBON DIOXIDE LEVEL 26 MEQ/L (21-32); CHLORIDE LEVEL 99 MEQ/L (98-107); CREATININE FOR GFR 0.83 MG/DL (0.55-1.02); GLOMERULAR FILTRATION RATE > 60.0 (>39); GLUCOSE, FASTING 216 MG/DL (83-110); POTASSIUM SERUM 3.9 MEQ/L (3.5-5.1); SODIUM LEVEL 134 MEQ/L (136-145)
--- NOTE | 2016-12-19 16:56 | REP ---
AP PORTABLE CHEST: 12/19/2016. Comparison: 10/03/2015, two-view chest 01/07/2013. Clinical history: Hypotension. AP portable seated chest with sternotomy wires and mediastinal clips. Lungs are very hypoinflated with crowded markings. There is a venous hypertension without pulmonary edema. Some blunting of the CP angle which may be due to atelectasis or effusion on the right. No dense consolidation. Tortuous calcified aorta. Airway intact. Impression: 1. Hypoinflated chest with some cardiomegaly and venous hypertension. No umm edema. 2. Question small effusion versus atelectasis at the left CP angle. Epicardial fat pad could also give that appearance and hypoinflated chest. 3. Tortuous calcified aorta. Airway intact. These are unchanged. Prior CABG. Signed by Saroj Lizarraga MD 12/19/2016 05:53 P
[2016-12-19] MEDS ORDERED: NS 250 ML IV ONE (17:45)
[2016-12-19] MEDS: NS 1,000 ML IV SCH (18:00)
--- NOTE | 2016-12-19 18:35 | ECGEPIP ---
Stationary ECG Study [facility] Test Date: 2016-12-19 Pat Name: BERENICE SORIA Department: Room: [place] [address] Gender: F Safety Professional: TAYLOR : [id number] Requested By: AMI POOLE Order Number: [id number] Reading MD: Ellyn Izaguirre Measurements Intervals [place] Rate: 76 P: 57 AR: 207 QRS: -33 QRSD: 97 T: -16 QT: 412 QTc: 464 Interpretive Statements SINUS RHYTHM POOR R WAVE PROGRESSION CANNOT R/O IWMI, LIKELY OLD COMPARED TO 10/03/15 POOR R WAVE PROGRESSION IS NEW Electronically Signed On 12-19-2016 18:35:32 EST by Ellyn Izaguirre
--- NOTE | 2016-12-19 20:21 | IPNPDOC ---
Text Note Date of Service The patient was seen on 12/19/16. NOTE Subjective: Patient seen and examined this morning bedside. Patient remains lethargic. She reports that she did not keep her breakfast down. Was given a dose of Zofran about 2 AM in the morning. She has not requested for more Zofran. Denies any pain. No abd pain, dysuria. Patient reports feeling warm. Patient was seen by neurology last evening to be evaluated for possible seizures. Thought is that she has lethargy secondary to encephalopathy secondary to recurrent urinary tract infection which she is currently on Macrodantin. Her Keppra dose was increased to 1000 mg twice a day. Also, an EEG was ordered. Head CT completed on 12/18/2016 showing status post resection of left temporal lobe tumor, and decreased mass effect compared with previous study. Patient became hypotensive in the afternoon. Objective: VS: see below. Gen: NAD. Appears lethargic. HEENT: surgery site intact, no erythema or discharge. CV: RRR Resp: clear b/l Abd: non tender, normoactive BS. Ext: no swelling in the LE Neuro: good muscle strength throughout. No sensory deficits. Some slight tremors in her hands which resolved. Lethargic, oriented to person and place. CN II-XII grossly intact. Assessment/Plan: 76 y/o F with sepsis and UTI. 1. Sepsis. Patient hypotensive with lactic acidosis. Patient given fluid bolus ( 1250cc), will start her on NS 120cc/hr to maintain her pressures. Transfer patient to PCU for telemetry. 2. UTI. Cultures pending. Continue patient on nitrofurantoin. Lethargy likely from encephalopathy secondary to UTI per neurology. Appreciate neurology input. Patient had tremors yesterday and an acute changes in her speech. R/o seizure activity. Keppra levels pending. Dose of Keppra increased to 1000mg BID. EEG pending. 3. Status post resection of glioblastoma mass 11/24/2016. Possible chemo and radiation treatment pending rehab. 4. Hypertension. Patient on Zebeta and Avapro with holding parameters. 5. Hyperlipidemia. Continue Crestor. 6. Chronic anemia. Continue patient on supplemental B12 and iron. 7. GERD. Continue Protonix. VS,Fishbone, I+O VS, Fishbone, I+O Laboratory Tests 12/19/16 05:51 Red Blood Count 4.10, Mean Corpuscular Volume 83.2, Mean Corpuscular Hemoglobin 27.3, Mean Corpuscular Hemoglobin Concent 32.8, Red Cell Distribution Width 16.1 H, Calcium Level 9.4, Aspartate Amino Transf (AST/SGOT) 12, Alanine Aminotransferase (ALT/SGPT) 26, Alkaline Phosphatase 45, Total Bilirubin 0.8, Total Protein 6.0 L, Albumin 3.1 L Vital Signs Date Time Temp Pulse Resp B/P (MAP) Pulse Ox O2 Delivery O2 Flow Rate FiO2 12/19/16 08:16 77 12/19/16 08:15 105/58 12/19/16 06:00 98.9 18 99 Nasal Cannula 2.0 GME ATTESTATION GME ATTESTATION My preceptor for this patient encounter was physically present in the building during the encounter and was fully available. As needed, all aspects of the patient interview, examination, medical decision making process, and medical care plan development were reviewed and approved by the preceptor. Preceptor is aware and concurs with the plan as stated in the body of this note and will attest to such by his/her cosignature. CARRIE GARZA DO Dec 19, 2016 10:09
[2016-12-19] MEDS: OLANZapine 2.5MG TABLET PO SCH (20:22)
[2016-12-19] MEDS: ROSUVASTATIN 10 MG TAB (CRESTOR) PO SCH (20:22)
[2016-12-19 21:43] LABS: ANION GAP 6 MEQ/L (8-16); BLOOD UREA NITROGEN 30 MG/DL (7-18); CALCIUM LEVEL 8.4 MG/DL (8.8-10.2); CARBON DIOXIDE LEVEL 28 MEQ/L (21-32); CHLORIDE LEVEL 101 MEQ/L (98-107); CREATININE FOR GFR 0.62 MG/DL (0.55-1.02); GLOMERULAR FILTRATION RATE > 60.0 (>39); GLUCOSE, FASTING 97 MG/DL (83-110); POTASSIUM SERUM 4.3 MEQ/L (3.5-5.1); SODIUM LEVEL 135 MEQ/L (136-145)
[2016-12-19 21:46] LABS: ERYTHROCYTE SEDIMENTATION RATE 21 mm/hr (0-30)
[2016-12-19] MEDS ORDERED: SODIUM CHLORIDE 0.9% 1000 ML IV ONE (22:45)
[2016-12-20] VITALS: BP 123/57
[2016-12-20] MEDS: NS 1,000 ML IV SCH ×3 (02:05→21:50)
[2016-12-20] MEDS: ACETAMINOPHEN 500 MG TAB PO PRN ×4 (02:24→21:49)
--- NOTE | 2016-12-20 02:28 | IPN ---
DATE OF SERVICE: 12/19/2016 Savanna was seen today. She was sitting in her chair and she was complaining of being dizzy. She was lethargic. Her systolic blood pressure was 78. The patient was transferred back to bed and started on intravenous (IV) fluid. The patient denies any headache or neck stiffness. She has low back pain, but no dysuria or hematuria. No nausea, vomiting or diarrhea. I did discuss the case with Dr. Jordan regarding head CT finding with some increased fluid collection, postoperative changes in the posterior left temporal lobe with decreased mass effect and increased soft tissue swelling overlying the craniotomy site. PHYSICAL EXAMINATION: Temperature is 98, blood pressure 82/38, oxygen saturation 93% on room air, pulse 71. Heart: Normal S1, S2. No murmurs. Lungs are clear. No wheezes, rales or rhonchi. Abdomen: Obese, soft, nontender. Back: Mild lumbosacral tenderness. Extremities: Trace edema. Neck is supple. There is a subcutaneous collection overlying the craniotomy site with minimal redness. Keven are still in place. No neck stiffness. LABORATORY DATA: White count is 11.4, hemoglobin 11.2, hematocrit 34.1, platelets 193. Sodium 130, potassium 5.3, chloride 95, bicarbonate 30, BUN 30, creatinine 0.7, glucose 114, calcium 9.7. Keppra levels are pending. Urine culture is pending. It had 100,000 lactose field merchandiser. IMPRESSION: 1. Hypotension. Could be related to dehydration as the patient was on fluid restriction. 2. Bacteruria. The patient has 100,000 lactose fermenters on urine culture with pyuria and low back pain. The patient has received Omnicef yesterday. She will be switched to Rocephin. 3. Glioma status post resection. If the patient is febrile, worsening mental status, I would pursue drainage of this fluid collection from craniotomy site and lumbar puncture after repeat MRI is done. Repeat complete blood count (CBC), comprehensive profile, sedimentation rate, blood cultures today, switch Omnicef to IV Rocephin. Case has been discussed with Dr. Jordan and Dr. Bear.
[2016-12-20 04:42] LABS: MEAN CORPUSCULAR HEMOGLOBIN 27.6 pg (27.0-33.0); MEAN CORPUSCULAR HGB CONC 32.8 g/dl (32.0-36.5); MEAN CORPUSCULAR VOLUME 84.2 fl (80.0-96.0); PLATELET COUNT, AUTOMATED 183 10^3/uL (150-450); RED CELL DISTRIBUTION WIDTH 15.9 % (11.5-14.5)
[2016-12-20 05:06] LABS: ALBUMIN 2.4 GM/DL (3.2-5.2); ALBUMIN/GLOBULIN RATIO 0.92 (1.00-1.93); ALKALINE PHOSPHATASE 33 U/L (45-117); ALT/SGPT 22 U/L (12-78); ANION GAP 7 MEQ/L (8-16); AST/SGOT 9 U/L (7-37); BILIRUBIN,TOTAL 0.4 MG/DL (0.2-1.0); BLOOD UREA NITROGEN 22 MG/DL (7-18); CALCIUM LEVEL 7.7 MG/DL (8.8-10.2); CARBON DIOXIDE LEVEL 26 MEQ/L (21-32); CHLORIDE LEVEL 107 MEQ/L (98-107); CREATININE FOR GFR 0.52 MG/DL (0.55-1.02); GLOMERULAR FILTRATION RATE > 60.0 (>39); GLUCOSE, FASTING 129 MG/DL (83-110); POTASSIUM SERUM 4.4 MEQ/L (3.5-5.1); SODIUM LEVEL 140 MEQ/L (136-145)
--- NOTE | 2016-12-20 07:12 | EEG ---
DATE OF EE12/19/2016 REFERRING PHYSICIAN: Dr. Tushar Barr DIAGNOSIS: Seizures. The patient is status post craniotomy for brain tumor. EEG NUMBER: [id number]. HISTORY: The patient is a 76-year-old woman with history of glioblastoma and is status post craniotomy. This EEG was done to rule out epileptic potential. She is currently taking amlodipine, bisoprolol, Keppra, Claritin, Protonix, Crestor, Zyprexa, dexamethasone, etc. TECHNICAL DESCRIPTION: This digital EEG was recorded by 21 scalp, ear and two EKG electrodes and was reviewed in bipolar and referential montages following reformatting in 10-20 international electrode placement system. INTERPRETATION: The patient was noted to be in awake and drowsy states during this EEG. Resting awake background rhythm consisted of 8 Hz alpha activity measuring 15-40 microvolts in amplitude, which was symmetric and reactive to eye opening. Anteriorly, low voltage and mixed frequency activity was noted. Attenuation of posterior dominant rhythm was seen during transition into drowsiness. Stage 1 and 2 sleep were reviewed. Breech rhythm was noted in the right central and temporal head region. Hyperventilation could not be performed. Photic stimulation remained unremarkable. EKG revealed normal sinus rhythm. Left central and temporal intermittent rhythmic delta activity was noted. No clinical or electrographic seizures were recorded. CONCLUSION: This EEG in awake, drowsy states, stage 1 and 2 sleep is abnormal due to presence of left temporal intermittent rhythmic delta activity/temporal intermittent rhythmic delta activity (TIRDA) with separate to left central head region consistent with focal cortical structural or functional abnormality with epileptic potential. No clinical or electrographic seizures were recorded. Clinical correlation is recommended.
[2016-12-20 08:00] VITALS: BP 143/58
[2016-12-20] MEDS: MIRALAX *UNIT DOSE* 17GM PACKET PO SCH ×2 (08:06→08:53)
[2016-12-20] MEDS: FERROUS GLUCONATE 324 MG TAB PO SCH ×2 (08:08→08:48)
[2016-12-20] MEDS: levETIRAcetam 250MG TABLET (KEPPRA) PO SCH ×3 (08:08→20:06)
[2016-12-20] MEDS: PANTOPRAZOLE 40MG TAB (PROTONIX) PO SCH ×2 (08:09→08:54)
[2016-12-20] MEDS: IRBESARTAN 150 MG TAB PO SCH ×3 (08:10→20:07)
[2016-12-20] MEDS: LORATADINE 10 MG TAB PO SCH ×2 (08:11→08:48)
[2016-12-20] MEDS: CYANOCOBALAMIN 500 MCG TAB PO SCH ×2 (08:11→08:54)
[2016-12-20] MEDS: BISOPROLOL FUMARATE 5 MG TAB PO SCH ×3 (08:11→20:07)
[2016-12-20] MEDS: CALCIUM/VITAMIN D 500 MG TAB PO SCH ×3 (08:12→20:06)
[2016-12-20] MEDS: NYSTATIN 100,000 UNITS/GM TOPICAL PWD 15 GM TOP SCH ×2 (08:12→20:08)
[2016-12-20] MEDS: ADVAIR HFA 115/21MCG INHALER INH SCH ×2 (08:46→19:39)
--- NOTE | 2016-12-20 10:01 | IPNPDOC ---
Subjective Date Seen The patient was seen on 12/20/16. Subjective Chief Complaint/HPI The patient is a 76-year-old female admitted with a reason for visit of Brain Mass. Objective Physical Examination General Exam: Positive: Alert (sitting up in chair - sleepy, but arousable and seems oriented. ), Cooperative, No Acute Distress Eye Exam: Positive: PERRLA, EOMI, Negative: Sclera icteric ENT Exam: Positive: Other ENT (staple line on left occipital region with vickie intact. Approx 2 cm fluid collection behind her left ear under incision site. No drainage currently. Soft, mobiloe and non-tender) Neck Exam: Negative: Lymphadenopathy Chest Exam: Positive: Clear to auscultation Heart Exam: Positive: Rate Normal, Regular Rhythm Abdomen Exam: Positive: Normal bowel sounds, Soft, Negative: Tenderness Neuro Exam: Positive: Normal Speech, Strength at 5/5 X4 ext Psych Exam: Positive: Mental status NL, Negative: Memory Intact (some deficits with short term memory) Assessment /Plan Problems (1) Seizure disorder Problem Text: 2 focus 2 brain tumor resection 12/[address] head c stable STS/fluid collection seen on 12/18 CT-case dw Dr. Jordan who agrees favors fluid is 2 to necrotic tissue, but given fever/MS change, agrees c LP (as did Dr. Castillo)-case dw c Dr. Arturo Foster who wanted clearance from [facility] 12/19 Dr. Herrera increased leve to 1000 BID given sz episode-partially 2 UTI/hypoNa /? fluid collection 12/19 EEG This EEG in awake, drowsy states, stage 1 and 2 sleep is abnormal due to presence of left temporal intermittent rhythmic delta activity/temporal intermittent rhythmic delta activity (TIRDA) with separate to left central head region consistent with focal cortical structural or functional abnormality with epileptic potential. No clinical or electrographic seizures were recorded. Clinical correlation is recommended. DD: KERRI HERRERA MD 12/20/16 0658 12/18 CT head The patient is status post resection of a left temporal lobe tumor. There is postoperative change in the posterior left temporal lobe with decreased mass effect compared to the previous study. There is increased soft tissue swelling and fluid overlying the craniotomy site. (2) Anemia Status: Chronic Problem Specific Plan: Monitor Clinically Problem Text: caution on chronic po steroid (on panto 40 QD for px) 12/20 hgb down to 9.4 (10.2, 11.2)-check HO baseline hgb 12s (12/09 wt 69, 12/20 79) On Supplemental B12 and Iron. 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 Jordan. Staff has contacted regarding fluid collection under vickie/inscision - he will see her today. Of note: Head CT 12/09 on day of her fall when she hit her head showed improved edema and resolution of small hemorrhage and pneumocephalus In the meantime,she continues on Decadron po and Keppra Following with Oncology for chemo/RT 12/01/16- POD #7. Pathology results: Glioblastoma. Patient will continue on PT/ OT today. Plan for discharge to acute rehabilitation; current insurance does not allow for rehabilitation at [facility]. Discharge pending approval for acute rehabilitation center. Will change patient to SNF status today. Decadron was changed from IV to by mouth 11/30/16 - POD #6. Pathology still pending. Continue P/T and O/T as needed. The goal is strengthening and healing before chemo and radiation start. Dr. Jordan says it can start whenever the oncologists determine appropriate. She is ready from his perspective. 11/29/2016- POD #5. Pathology is still pending. Patient is continuing with physical therapy. Her thought process and speech are improved from yesterday. Her speech is more fluid. Her thoughts seem more organized. Patient states that she recognizes me today, although she did not recall my name. 11/28 POD # 4. Pathology is pending. Patient continues to have therapy. Her speech and thought process seem appropriate today, although slightly worse than yesterday with some word searching. 11/27- POD #3 s/p left posterior temporal parietal craniotomy with resection of mass, cranioplasty and left ventriculostomy performed by Dr Jordan. Path pending. Patient doing well today. Her speech and thought process seem appropriate today. Patient was seen by both oncology and radiation oncology today. They plan on discussing further treatment with the patient after she is discharged from the hospital and finishes rehabilitation. 11/26 - POD #2. Pt s/p left posterior temporal parietal craniotomy with resection of mass, cranioplasty and left ventriculostomy performed by Dr Jordan. Path pending. 11/25/14: POD #1 - doing very well. Awake and alert. Interacting appropriately with nursing and family. Neurosurgery has changed her to q2h Neurochecks. She had a repeat scan today. She may be downgraded to PCU status today. 11/24/16:Postop: left posterior temporal-parietal craniotomy with resection of mass, cranioplasty, and left lateral ventriculostomy performed by Dr. Jordan. Awaiting pathology results. Patient comfortable after procedure. Remains confused. Pt transferred to ICU for care. 11/21/16: start Olanzapaine. Continue to wait on second opinion pathology at from [facility]. Discuss with neurosurgery Keppra dosing adjustment 11/20/16: awaiting results from [facility], may need further surgical intervention. Noting some MS and behavior changes. Will arrange for psychiatry eval for medical decision making capabilities and insight. Discussed case with patient's daughter Kait, who agrees with plan. ? behavior changes related to Keppra. Continue to wait for pathology. Neurosurgery following. 11/15/16: Dr. Jordan has been consulted for a second opinion. Dr. Andres is out of town for a week. Dr. Jordan would like to wait until the official read of the brain biopsy is back before he makes a final decision that it's nondiagnostic; he recalls incidences where the frozen section has not been diagnostic but they were able to get a little more out of the fully fixed section to make a diagnosis. 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 There is an area of increased signal intensity in the medial left parietal lobe with associated mass effect. This is suspicious for a low grade glioma. Small vessel ischemic disease. Mild volume loss. CT Chest and Abd/pel were obtained to search for primary. CT Chest: 14 mm nodule in the anterior segment of the right lower lobe, not present on the comparison study. CT Abd/pel: No mass, adenopathy, or ascites. Chronic thickening of the terminal ileum, unchanged. Fat-containing ventral hernia, unchanged. Small hiatal hernia , unchanged. No lytic, blastic or destructive skeletal changes. Degenerative disc disease in the lumbar spine. Bilateral hip osteoarthritis, worse on the left. (6) Lung nodule Discussed With: Patient, Family with Pt Consent Problem Text: Patient has a 14 mm nodule in the right lower lobe. Patient was set up for biopsy of the nodule to rule out primary lesion. The nodule could not be biopsied by interventional radiology secondary to size. Dr. Morales noted that the lesion was unlikely a primary metastatic lesion. Patient proceeded to have a biopsy of her brain mass which resulted in glioblastoma. Lung nodule will need to be followed as outpatient. 11/24/2016: I reconfirmed this assessment with Dr. 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 (peoplesoft consultant) 11/19/16: Per Interventional Rad: most likely not a primary. Proceed with brain mass bx and pathology prior to lung nodule eval. 11/17/2016: Pulmonology, informal consult, advised against bronchoscopy. Recommends interventional to see if can get to nodule. Dr. Jordan is requesting that we strongly consider working up this lung nodule while she is in the hospital. He has a strong clinical suspicion that the brain lesion is metastatic. Additionally if she has a primary lung cancer it may change his recommendation to do an excisional bx of the brain lesion which almost assuredly leave her with some weakness and speech deficits. Tomorrow we should contact IR and/or Pulm to see whether CT guided bx or navigational bronchoscopy with bx is the best way to get a sample of this lesion. ------ CT Chest: 14 mm nodule in the anterior segment of the right lower lobe, not present on the comparison study. (7) Brain compression Status: Acute Response to Treatment: Controlled Problem Specific Plan: Monitor Clinically Problem Text: Dr. Jordan, brain edema and swelling treated with the left lateral ventriculostomy on 11/24/16. (8) HTN (hypertension) Status: Chronic Problem Specific Plan: Monitor Clinically Problem Text: BP is well controlled today. Continue current regimen, monitor. (9) CAD (coronary artery disease) Status: Chronic Problem Specific Plan: Monitor Clinically Problem Text: Per Neurosurgeon, Plavix to be held 72hrs after procedure. (10) COPD (chronic obstructive pulmonary disease) Status: Chronic Problem Specific Plan: Monitor Clinically Problem Text: Stable (11) Hyperlipidemia Status: Chronic Problem Specific Plan: Monitor Clinically Problem Text: On Crestor. Plan/VTE VTE Prophylaxis Ordered?: Yes (TEDs and SCDs) VTE Exclusion Pharmacological: Bleeding Risk (intracranial procedure) Plan Anticipated Discharge: Home With Services (based on therapy's recommendation) VS, I&O, 24H, Fishbone Vital Signs/I&O Vital Signs Date Time Temp Pulse Resp B/P (MAP) Pulse Ox O2 Delivery O2 Flow Rate FiO2 12/20/16 08:00 98.1 70 17 143/58 (86) 97 Room Air 12/19/16 06:00 2.0 I&O- Last 24 Hours up to 6 AM 12/21/16 06:00 Intake Total 25 ml Balance 25 ml Laboratory Data 24H LABS Laboratory Tests 2 12/19/16 13:38: Anion Gap 5L, Glomerular Filtration Rate > 60.0, Blood Urea Nitrogen 30H, Creatinine 0.69, Sodium Level 130L, Potassium Level 5.3H, Chloride Level 95L, Carbon Dioxide Level 30, Calcium Level 9.7 12/19/16 14:56: Bedside Glucose (Misc Panel) 205H 12/19/16 15:35: Anion Gap 9, Glomerular Filtration Rate > 60.0, Blood Urea Nitrogen 32H, Creatinine 0.83, Sodium Level 134L, Potassium Level 3.9#, Chloride Level 99, Carbon Dioxide Level 26, Calcium Level 8.5L, Immature Granulocyte % (Auto) , Nucleated Red Blood Cells % (auto) 0.0, Neutrophils 87H, Lymphocytes (Manual) 8L , Monocytes (Manual) 3, Metamyelocytes 1H, Atypical Lymphocytes 1, Platelet Estimate NORMAL, Clumped Platelets SMALL AMT, Erythrocyte Sedimentation Rate 21 , Lactic Acid Level 2.4*H, Total Creatine Kinase 15L, Creatine Kinase MB 1.5, Creatine Kinase MB Relative Index 10.00H, Troponin I 0.04 12/19/16 20:48: Anion Gap 6L, Glomerular Filtration Rate > 60.0, Blood Urea Nitrogen 30H, Creatinine 0.62, Sodium Level 135L, Potassium Level 4.3, Chloride Level 101, Carbon Dioxide Level 28, Calcium Level 8.4L, Total Creatine Kinase 17L, Creatine Kinase MB 2.0, Creatine Kinase MB Relative Index 11.76H, Troponin I 0.03#, Lactic Acid Followup at 4 Hours 3.5*H 12/20/16 04:19: Nucleated Red Blood Cells % (auto) 0.0, Anion Gap 7L, Glomerular Filtration Rate > 60.0, Blood Urea Nitrogen 22H, Creatinine 0.52L, Sodium Level 140, Potassium Level 4.4, Chloride Level 107, Carbon Dioxide Level 26, Calcium Level 7.7L, Aspartate Amino Transf (AST/SGOT) 9, Alanine Aminotransferase (ALT/SGPT) 22, Alkaline Phosphatase 33L, Total Bilirubin 0.4, Total Protein 5.0L, Albumin 2.4#L, Albumin/Globulin Ratio 0.92L 12/20/16 05:33: Lactic Acid Level 1.2 CBC/BMP Laboratory Tests 12/19/16 13:38 Calcium Level 9.7 12/19/16 15:35 Calcium Level 8.5 L, Red Blood Count 3.68 L, Mean Corpuscular Volume 84.0, Mean Corpuscular Hemoglobin 27.7, Mean Corpuscular Hemoglobin Concent 33.0, Red Cell Distribution Width 15.9 H, Total Creatine Kinase 15 L 12/19/16 20:48 Calcium Level 8.4 L, Total Creatine Kinase 17 L 12/20/16 04:19 Calcium Level 7.7 L, Red Blood Count 3.41 L, Mean Corpuscular Volume 84.2, Mean Corpuscular Hemoglobin 27.6, Mean Corpuscular Hemoglobin Concent 32.8, Red Cell Distribution Width 15.9 H, Aspartate Amino Transf (AST/SGOT) 9, Alanine Aminotransferase (ALT/SGPT) 22, Alkaline Phosphatase 33 L, Total Bilirubin 0.4, Total Protein 5.0 L, Albumin 2.4 #L Microbiology Microbiology 12/19/16 Blood Culture, Received Pending 12/18/16 Urine Culture - Final, Complete Escherichia Coli Tushar Barr M.D. Dec 20, 2016 10:01
[2016-12-20 10:58] LABS: FERRITIN 174 NG/ML (8-252)
--- NOTE | 2016-12-20 11:55 | REP ---
CT Head without contrast HISTORY: Left temporal lobe tumor COMPARISON: 12/18/2016 The patient is status post left temporal parietal craniotomy and resection of a left upper lobe tumor. An area of decreased attenuation is present in the posterior left temporal lobe. There is minimal mass effect on the posterior body and atrium of the left lateral ventricle unchanged compared to the previous study. There is no intraparenchymal hemorrhage or midline shift. There is no hydrocephalus or extra cerebral collection.. Soft tissue swelling and a fluid collection are present at the craniotomy site overlying the left temporal and parietal lobes. This appears unchanged compared to the previous study. The visualized sinuses are clear. IMPRESSION: 1. The patient is status post resection of a left upper lobe tumor. There is postoperative change in the posterior left temporal lobe unchanged compared to the previous study. 2. There is soft tissue swelling and fluid overlying the craniotomy site unchanged compared to the previous study. Signed by Elias Ruelas MD 12/20/2016 11:47 A
[2016-12-20 12:00] VITALS: BP 108/54
[2016-12-20] MEDS: cefTRIAXone SOD 2 GM in D5W 50 ML IV SCH (15:37)
[2016-12-20 15:41] LABS: APPEARANCE, CSF CLOUDY (CLEAR); COLOR, CSF COLORLESS (COLORLESS); CSF DIFF IF INDICATED? YES (NO); CSF TUBE# CELL CNT TUBE 1
[2016-12-20 15:44] LABS: CSF MONONUCLEAR CELL % 23.9 % (0-0); CSF POLYMORPHONUCLEAR CELL % 76.1 % (0-0)
[2016-12-20 15:45] LABS: APPEARANCE, CSF CLOUDY (CLEAR); COLOR, CSF COLORLESS (COLORLESS); CSF DIFF IF INDICATED? YES (NO); CSF TUBE# CELL CNT TUBE 4
[2016-12-20 15:56] LABS: GLUCOSE CSF 50 MG/DL (40-75)
[2016-12-20 16:00] VITALS: BP 130/59
[2016-12-20 20:00] VITALS: BP 106/52
[2016-12-20] MEDS: ROSUVASTATIN 10 MG TAB (CRESTOR) PO SCH (20:06)
[2016-12-20] MEDS: OLANZapine 2.5MG TABLET PO SCH (20:11)
[2016-12-21] VITALS: BP 115/58
[2016-12-21] MEDS: MORPHINE 2 MG/ML 1ML SYRINGE IV PRN (01:42)
[2016-12-21 04:00] VITALS: BP 117/59
[2016-12-21 04:40] LABS: MEAN CORPUSCULAR HEMOGLOBIN 27.6 pg (27.0-33.0); MEAN CORPUSCULAR HGB CONC 33.3 g/dl (32.0-36.5); MEAN CORPUSCULAR VOLUME 82.7 fl (80.0-96.0); PLATELET COUNT, AUTOMATED 229 10^3/uL (150-450); WHITE BLOOD COUNT 10.6 10^3/uL (4.0-10.0)
[2016-12-21 04:47] LABS: ADD MANUAL DIFFER YES; DIFF SLIDE NUMBER 67; POS COUNT POS FLAG; POSITIVE MORPH POS FLAG
[2016-12-21 05:02] LABS: ALBUMIN 2.7 GM/DL (3.2-5.2); ALBUMIN/GLOBULIN RATIO 0.96 (1.00-1.93); ALKALINE PHOSPHATASE 39 U/L (45-117); ALT/SGPT 26 U/L (12-78); ANION GAP 9 MEQ/L (8-16); AST/SGOT 9 U/L (7-37); BILIRUBIN,TOTAL 0.3 MG/DL (0.2-1.0); BLOOD UREA NITROGEN 17 MG/DL (7-18); CALCIUM LEVEL 8.2 MG/DL (8.8-10.2); CARBON DIOXIDE LEVEL 22 MEQ/L (21-32); CHLORIDE LEVEL 107 MEQ/L (98-107); CREATININE FOR GFR 0.48 MG/DL (0.55-1.02); GLOMERULAR FILTRATION RATE > 60.0 (>39); GLUCOSE, FASTING 121 MG/DL (83-110); PERCENT SATURATION 19.2 % (13.2-45.0); SODIUM LEVEL 138 MEQ/L (136-145); TOTAL IRON BINDING CAPACITY 219 UG/DL (250-450); TOTAL PROTEIN 5.5 GM/DL (6.4-8.2)
[2016-12-21 05:34] LABS: ANISOCYTOSIS 1+
[2016-12-21 08:00] VITALS: BP 145/61
[2016-12-21] MEDS: ADVAIR HFA 115/21MCG INHALER INH SCH ×2 (08:07→19:51)
[2016-12-21] MEDS: levETIRAcetam 250MG TABLET (KEPPRA) PO SCH ×2 (08:39→20:28)
[2016-12-21] MEDS: BISOPROLOL FUMARATE 5 MG TAB PO SCH ×2 (08:40→20:22)
[2016-12-21] MEDS: CYANOCOBALAMIN 500 MCG TAB PO SCH (08:40)
[2016-12-21] MEDS: CALCIUM/VITAMIN D 500 MG TAB PO SCH ×2 (08:40→20:28)
[2016-12-21] MEDS: IRBESARTAN 150 MG TAB PO SCH ×2 (08:40→20:28)
[2016-12-21] MEDS: LORATADINE 10 MG TAB PO SCH (08:40)
[2016-12-21] MEDS: PANTOPRAZOLE 40MG TAB (PROTONIX) PO SCH (08:40)
[2016-12-21] MEDS: MIRALAX *UNIT DOSE* 17GM PACKET PO SCH (08:41)
[2016-12-21] MEDS: FERROUS GLUCONATE 324 MG TAB PO SCH (08:41)
--- NOTE | 2016-12-21 08:48 | IPNPDOC ---
Subjective Date Seen The patient was seen on 12/21/16. Subjective Chief Complaint/HPI The patient is a 76-year-old female admitted with a reason for visit of Brain Mass. Events since last encounter Patient seen at bedside this morning. She does have some complaints of her head hurting on the left side, at the site of surgery. She continues to complain of left-sided jaw pain which is unchanged. She also has back pain, she feels sore around the site of the lumbar puncture. Patient feels that she should not be in bed for as many hours as she has. Nursing staff is assisting her to the chair. Nursing staff reports that she had some confusion around 2 AM this morning. When I came in to see her her around 7 AM, nursing staff reports that she is much improved from earlier today, and that she is closer to baseline. Constitutional: Denies: Chills, Fever, Night Sweats Pulmonary: Denies: Dyspnea, Cough Cardiovascular: Denies: Chest Pain, Palpitations, Orthopnea, Paroxysmal Noc. Dyspnea, Lt Headedness Gastrointestinal: Denies: Nausea, Vomiting, Abdominal Pain, Diarrhea, Constipation Genitourinary: Denies: Dysuria, Frequency, Incontinence, Retention Objective Physical Examination General Exam: Positive: Alert (sitting up in chair - sleepy, but arousable and seems oriented. ), Cooperative, No Acute Distress Eye Exam: Positive: PERRLA, EOMI, Negative: Sclera icteric ENT Exam: Positive: Other ENT (staple line on left occipital region with vickie intact. Approx 2 cm fluid collection behind her left ear under incision site. No drainage currently. Soft, mobiloe and non-tender) Neck Exam: Negative: Lymphadenopathy Chest Exam: Positive: Clear to auscultation Heart Exam: Positive: Rate Normal, Regular Rhythm Abdomen Exam: Positive: Normal bowel sounds, Soft, Negative: Tenderness Neuro Exam: Positive: Normal Speech, Strength at 5/5 X4 ext Psych Exam: Positive: Mental status NL, Negative: Memory Intact (some deficits with short term memory) Assessment /Plan Problems (1) Diastolic congestive heart failure Status: Chronic Problem Text: 12/21 BNP 1541 c mild decompensation-held IVF and amlo 2.5 BID-repeat TTE (2) Fever Status: Acute Problem Text: D1 vanco/shamar (D3 ceftriaxone 2 gm-last dose 12/21) 12/21 Tm 99.8, WBC stable at 10.6 12/20 LP done 2 persistent fluid collection at craniotomy site, MS change and fever to 100.4: GS -, CX P, 954 WBC (76% PMN), 111 prot, 50 glc (no ho MRSA)- therefore, thomas Castillo and changed to vanco/shamar (unknown PCN allergy, but tolerated ceftriaxone) 12/20 LA 1.2 (12/19 3.5!) (3) Seizure disorder Problem Text: 12/21/2016: LP completed a 12/20/2016. Patient has some soreness in the back around puncture site. CSF culture pending. 2 focus 2 brain tumor resection 12/[address] head c stable STS/fluid collection seen on 12/18 CT-case dw Dr. Jordan who agrees favors fluid is 2 to necrotic tissue, but given fever/MS change, agrees c LP (as did Dr. Castillo)-case dw c Dr. Arturo Foster who wanted clearance from [facility] 12/19 Dr. Herrera increased leve to 1000 BID given sz episode-partially 2 UTI/hypoNa /? fluid collection 12/19 EEG This EEG in awake, drowsy states, stage 1 and 2 sleep is abnormal due to presence of left temporal intermittent rhythmic delta activity/temporal intermittent rhythmic delta activity (TIRDA) with separate to left central head region consistent with focal cortical structural or functional abnormality with epileptic potential. No clinical or electrographic seizures were recorded. Clinical correlation is recommended. DD: KERRI HERRERA MD 12/20/16 0658 12/18 CT head The patient is status post resection of a left temporal lobe tumor. There is postoperative change in the posterior left temporal lobe with decreased mass effect compared to the previous study. There is increased soft tissue swelling and fluid overlying the craniotomy site. (4) Anemia Status: Chronic Problem Specific Plan: Monitor Clinically Problem Text: 12/21/2016: Hemoglobin improving today, 10.8. caution on chronic po steroid (on panto 40 QD for px) 12/20 hgb down to 9.4 (10.2, 11.2)-check HO baseline hgb 12s (12/09 wt 69, 12/20 79) On Supplemental B12 and Iron. 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 Patient was set up for biopsy of the nodule to rule out primary lesion. The nodule could not be biopsied by interventional radiology secondary to size. Dr. Morales noted that the lesion was unlikely a primary metastatic lesion. Patient proceeded to have a biopsy of her brain mass which resulted in glioblastoma. Lung nodule will need to be followed as outpatient. 11/24/2016: I reconfirmed this assessment with Dr. 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 (dba developer) 11/19/16: Per Interventional Rad: most likely not a primary. Proceed with brain mass bx and pathology prior to lung nodule eval. 11/17/2016: Pulmonology, informal consult, advised against bronchoscopy. Recommends interventional to see if can get to nodule. Dr. Jordan is requesting that we strongly consider working up this lung nodule while she is in the hospital. He has a strong clinical suspicion that the brain lesion is metastatic. Additionally if she has a primary lung cancer it may change his recommendation to do an excisional bx of the brain lesion which almost assuredly leave her with some weakness and speech deficits. Tomorrow we should contact IR and/or Pulm to see whether CT guided bx or navigational bronchoscopy with bx is the best way to get a sample of this lesion. ------ CT Chest: 14 mm nodule in the anterior segment of the right lower lobe, not present on the comparison study. (8) Brain compression Status: Acute Response to Treatment: Controlled Problem Specific Plan: Monitor Clinically Problem Text: Dr. Jordan, brain edema and swelling treated with the left lateral ventriculostomy on 11/24/16. (9) HTN (hypertension) Status: Chronic Problem Specific Plan: Monitor Clinically Problem Text: BP is well controlled today. Continue current regimen, monitor. 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 Jordan Plan/VTE VTE Prophylaxis Ordered?: Yes (TEDs and SCDs) VTE Exclusion Pharmacological: Bleeding Risk (intracranial procedure) Plan Anticipated Discharge: Home With Services (based on therapy's recommendation) VS, I&O, 24H, Fishbone Vital Signs/I&O Vital Signs Date Time Temp Pulse Resp B/P (MAP) Pulse Ox O2 Delivery O2 Flow Rate FiO2 12/21/16 08:00 98.7 71 20 145/61 (89) 97 Room Air 12/19/16 06:00 2.0 Laboratory Data 24H LABS Laboratory Tests 2 12/20/16 15:08: Body Fluid Mononuclear Cells % Auto , CSF Appearance CLOUDYH, CSF Color COLORLESS, CSF WBC (Auto) 581H, CSF RBC (Auto) < 2, CSF Glucose (Tube 1) TUBE 2 , CSF Total Protein (Tube 1) TUBE 2, CSF Cell Count Tube # TUBE 1, CSF Mononuclear Cells % (Auto) 22.0H, CSF Polynuclear WBCs (%) 78.0H, CSF Glucose 50 , CSF Total Protein 119.0H 12/21/16 04:12: Immature Granulocyte % (Auto) , Nucleated Red Blood Cells % (auto) 0.0, Neutrophils 87H, Lymphocytes (Manual) 3L, Monocytes (Manual) 6, Metamyelocytes 1H, Myelocytes 1H, Atypical Lymphocytes 2, Platelet Estimate NORMAL, Anisocytosis 1+, Anion Gap 9, Glomerular Filtration Rate > 60.0, Blood Urea Nitrogen 17, Creatinine 0.48L, Sodium Level 138, Potassium Level 4.0, Chloride Level 107, Carbon Dioxide Level 22, Calcium Level 8.2L, Aspartate Amino Transf ( AST/SGOT) 9, Alanine Aminotransferase (ALT/SGPT) 26, Alkaline Phosphatase 39L, Total Bilirubin 0.3, Total Protein 5.5L, Albumin 2.7L, Iron Level 42L, Total Iron Binding Capacity 219L, Transferrin % Saturation 19.2, EB-Awx-L-Type Natriuretic Peptide 1541H, Albumin/Globulin Ratio 0.96L CBC/BMP Laboratory Tests 12/21/16 04:12 Red Blood Count 3.92 L, Mean Corpuscular Volume 82.7, Mean Corpuscular Hemoglobin 27.6, Mean Corpuscular Hemoglobin Concent 33.3, Red Cell Distribution Width 16.0 H, Calcium Level 8.2 L, Aspartate Amino Transf (AST/SGOT ) 9, Alanine Aminotransferase (ALT/SGPT) 26, Alkaline Phosphatase 39 L, Total Bilirubin 0.3, Total Protein 5.5 L, Albumin 2.7 L Microbiology Microbiology 12/19/16 Blood Culture - Preliminary, Resulted No growth after 24 hours . All specim... 12/20/16 Gram Stain - Final, Resulted 12/20/16 CSF Culture, Resulted Pending 12/20/16 , Received Pending 12/20/16 Stool Occult Blood (HECTOR) - Final, Complete 12/18/16 Urine Culture - Final, Complete Escherichia Coli GME ATTESTATION GME ATTESTATION My preceptor for this patient encounter was physically present in the building during the encounter and was fully available. As needed, all aspects of the patient interview, examination, medical decision making process, and medical care plan development were reviewed and approved by the preceptor. Preceptor is aware and concurs with the plan as stated in the body of this note and will attest to such by his/her cosignature. CARRIE GARZA DO Dec 21, 2016 08:48 Tushar Barr M.D. Dec 21, 2016 14:32
[2016-12-21] MEDS: NYSTATIN 100,000 UNITS/GM TOPICAL PWD 15 GM TOP SCH ×2 (08:49→20:45)
[2016-12-21] MEDS: ACETAMINOPHEN 500 MG TAB PO PRN ×2 (08:52→17:08)
[2016-12-21 12:00] VITALS: BP 104/55
[2016-12-21 16:00] VITALS: BP 155/71
[2016-12-21] MEDS: cefTRIAXone SOD 2 GM in D5W 50 ML IV SCH (16:00)
[2016-12-21] MEDS ORDERED: MEROPENEM INJ 2 GM in NS 100 ML IV SCH (17:00)
[2016-12-21] MEDS: VANCOMYCIN HCL 1,000 MG, VIAL MATE ADAPTER 1 EACH in D5W 250 ML IV SCH (17:08)
[2016-12-21] MEDS: MEROPENEM INJ 2 GM in NS 100 ML IV SCH (18:19)
--- NOTE | 2016-12-21 19:26 | PHACANCOPD ---
PHARMACY VANCOMYCIN DOSING Pt Demographics Demographics Patient Age:76 , Weight:79.800 , Gender: female Adjusted Body Weight Date: 12/21/16, Adjusted Body Weight: Kg Events Past 24 Hours Events Past 24 Hours: NO: Dialysis, Diuretic Therapy, Change in CrCl, Fever, Elevation in WBC, Pending Diagnostics, Pending Procedures, Other Vancomycin Vancomycin Target Ranges: 15-20 mcg/ml Vancomycin Load Y/N: No Load Dose Date Time Vancomycin Load Dose: Date: Time: Vancomycin Dose Date: 12/21/16. Current Vancomycin Dose: [1000MG Q12H] Intermittent Dosing?: No Labs Labs Item Value Date Time White Blood Count 10.6 10^3/uL H 12/21/16 0412 Creatinine 0.48 MG/DL L 12/21/16411 Blood Urea Nitrogen 17 MG/DL 12/21/16 041 Vital Signs Label Value Date Time Patient Temperature 97.2 degrees F 12/21/16 1600 Temperature Source Temporal 12/21/16 1600 Micro Microbiology 12/19/16 Blood Culture - Preliminary, Resulted No Growth after 48 hours. All Specime... 12/20/16 Gram Stain - Final, Resulted 12/20/16 CSF Culture, Resulted Pending 12/20/16 , Received Pending 12/20/16 Stool Occult Blood (HECTOR) - Final, Complete 12/18/16 Urine Culture - Final, Complete Escherichia Coli Creatinine Clearance Date:12/21/16. Creatinine Clearance: [75].LIKELY LESS THAN THIS Pending Labs Trough 11- @1700 Assessment and Plan Maintaining Current Dose?: Yes Reason for dose change: No Dose Change Pharmacist Note Pharmacist Note Date: 12/21/16. Pharmacist note:Dosed at 1000mg q12h with a trough ordered for 11 @1700. Will continue to monitor and make adjustments as needed. [facility] Dec 21, 2016 19:25
[2016-12-21 19:54] VITALS: BP 102/52
[2016-12-21] MEDS: OLANZapine 2.5MG TABLET PO SCH (20:28)
[2016-12-21] MEDS: ROSUVASTATIN 10 MG TAB (CRESTOR) PO SCH (20:28)
[2016-12-22] VITALS (7 sets, daily range): BP systolic 111–146; BP diastolic 57–67
[2016-12-22] MEDS: ACETAMINOPHEN 500 MG TAB PO PRN ×4 (02:58→23:13)
[2016-12-22] MEDS: MEROPENEM INJ 2 GM in NS 100 ML IV SCH ×3 (02:59→17:45)
[2016-12-22] MEDS: VANCOMYCIN HCL 1,000 MG, VIAL MATE ADAPTER 1 EACH in D5W 250 ML IV SCH ×3 (03:52→18:54)
[2016-12-22 05:33] LABS: MEAN CORPUSCULAR HEMOGLOBIN 27.2 pg (27.0-33.0); MEAN CORPUSCULAR VOLUME 82.6 fl (80.0-96.0); PLATELET COUNT, AUTOMATED 188 10^3/uL (150-450); RED CELL DISTRIBUTION WIDTH 15.8 % (11.5-14.5); WHITE BLOOD COUNT 9.3 10^3/uL (4.0-10.0)
[2016-12-22 05:35] LABS: ADD MANUAL DIFFER YES; DIFF SLIDE NUMBER 3; POS COUNT POS FLAG; POSITIVE MORPH POS FLAG
[2016-12-22 06:00] LABS: ALBUMIN 2.5 GM/DL (3.2-5.2); ALBUMIN/GLOBULIN RATIO 0.96 (1.00-1.93); ALKALINE PHOSPHATASE 35 U/L (45-117); ALT/SGPT 24 U/L (12-78); ANION GAP 7 MEQ/L (8-16); AST/SGOT 10 U/L (7-37); BILIRUBIN,TOTAL 0.4 MG/DL (0.2-1.0); BLOOD UREA NITROGEN 11 MG/DL (7-18); CALCIUM LEVEL 8.2 MG/DL (8.8-10.2); CARBON DIOXIDE LEVEL 26 MEQ/L (21-32); CHLORIDE LEVEL 104 MEQ/L (98-107); CREATININE FOR GFR 0.33 MG/DL (0.55-1.02); GLOMERULAR FILTRATION RATE > 60.0 (>39); GLUCOSE, FASTING 104 MG/DL (83-110); POTASSIUM SERUM 3.9 MEQ/L (3.5-5.1); SODIUM LEVEL 137 MEQ/L (136-145); TOTAL PROTEIN 5.1 GM/DL (6.4-8.2)
[2016-12-22 06:43] LABS: ANISOCYTOSIS 1+; BANDS 2 % (< 11); OVALOCYTES 1+
[2016-12-22] MEDS: ADVAIR HFA 115/21MCG INHALER INH SCH ×2 (07:33→20:29)
[2016-12-22] MEDS: MIRALAX *UNIT DOSE* 17GM PACKET PO SCH (08:56)
[2016-12-22] MEDS: levETIRAcetam 250MG TABLET (KEPPRA) PO SCH ×2 (08:57→21:26)
[2016-12-22] MEDS: BISOPROLOL FUMARATE 5 MG TAB PO SCH ×2 (08:58→21:25)
[2016-12-22] MEDS: CYANOCOBALAMIN 500 MCG TAB PO SCH (08:59)
[2016-12-22] MEDS: CALCIUM/VITAMIN D 500 MG TAB PO SCH ×2 (08:59→21:25)
[2016-12-22] MEDS: LORATADINE 10 MG TAB PO SCH (08:59)
[2016-12-22] MEDS: PANTOPRAZOLE 40MG TAB (PROTONIX) PO SCH (08:59)
[2016-12-22] MEDS: IRBESARTAN 150 MG TAB PO SCH ×2 (09:00→21:26)
[2016-12-22] MEDS: NYSTATIN 100,000 UNITS/GM TOPICAL PWD 15 GM TOP SCH ×2 (09:05→21:27)
[2016-12-22] MEDS: FERROUS GLUCONATE 324 MG TAB PO SCH (09:08)
[2016-12-22] MEDS ORDERED: SLF 3 ML SYR IV PRN (12:15)
[2016-12-22] MEDS: SLF 3 ML SYR IV SCH ×2 (16:08→21:27)
--- NOTE | 2016-12-22 16:30 | ECHO ---
DATE OF PROCEDURE: 12/22/2016 REFERRING PHYSICIAN: Dr. López Barr INDICATION: Heart failure, unspecified. HEIGHT: 150 cm WEIGHT: 79 kg MEASUREMENTS: Left atrium: 4.0 cm Aortic root: 3.4 cm Ventricular septum: 1.13 cm Posterior wall: 1.12 cm Left ventricle diastole: 4.8 cm LVOT: 2.4 cm DOPPLER MEASUREMENTS: There is very mild aortic regurgitation. No aortic stenosis. Aortic valve velocity: 99.2 cm/s LVOT velocity:75.6 cm/s LVOT VTI: 12.3 cm/s No mitral regurgitation. Mild tricuspid regurgitation. Estimated right ventricular systolic pressure 32 mmHg assuming a right atrial pressure of 5 mmHg. Pulmonary artery systolic pressure, 49 mmHg by pulmonary artery deceleration time method. DESCRIPTION: Rhythm was atrial flutter with controlled ventricular response. This is moderately technically difficulty echocardiogram. No pericardial effusion. This is a 2D, M-mode, color flow Doppler and pulse wave Doppler examination, including mitral annular tissue Doppler. CONCLUSIONS: 1. Hyperdynamic LV systolic function. Left ventricular ejection fraction (LVEF) of 75% by visual estimate. No regional wall motion abnormalities of the left ventricle. Unable to assess LV diastolic function in the setting of atrial flutter. 2. Suggestive of moderate elevation of pulmonary artery systolic pressure. Prominent moderator band of the right ventricle. Normal right ventricle size and systolic function. 3. Mild aortic valve sclerosis of a three-cuspid aortic valve. Very mild aortic regurgitation. 4. Mild mitral annular calcification. No mitral regurgitation. 5. Mild left atrial dilatation.
--- NOTE | 2016-12-22 17:23 | IPNPDOC ---
Subjective Date Seen The patient was seen on 12/22/16. Subjective Chief Complaint/HPI The patient is a 76-year-old female admitted with a reason for visit of Brain Mass. Events since last encounter Patient has acute concern today of some hemorrhoids and is asking for Preparation H cream. She otherwise does not have any acute concerns today. Constitutional: Denies: Chills, Fever ENT: Reports: Head Aches Pulmonary: Denies: Dyspnea Cardiovascular: Denies: Chest Pain Objective Physical Examination General Exam: Positive: Alert, Cooperative, No Acute Distress Chest Exam: Positive: Clear to auscultation, Normal air movement, Negative: Rales, Rhonchi, Wheezing Heart Exam: Positive: Rate Normal, Regular Rhythm, Normal S1, Normal S2, Negative: Gallops, Murmurs, Rubs Abdomen Exam: Positive: Normal bowel sounds, Soft, Negative: Tenderness, Hepatospenomegaly, Mass Other physical findings Integumentary: Skin about head incision: Keven are clean, dry, no purulent or other discharge Assessment /Plan Assessment Patient is a 76-year-old female with history of brain mass, status post resection, currently being treated for suspected meningitis. Problems (1) Diastolic congestive heart failure Status: Chronic Problem Text: 12/22: Echocardiogram showed hyperdynamic left ventricular systolic function, LVEF 75%, atrial flutter. Moderate elevation of pulmonary artery systolic pressure. Mild aortic valve sclerosis, mild aortic regurgitation. Negative for mitral regurgitation. Mild left atrial dilation Continue current medication 12/21 BNP 1541 c mild decompensation-held IVF and amlo 2.5 BID-repeat TTE (2) Fever Status: Acute Problem Text: 12/22: Patient has been afebrile, MAXIMUM TEMPERATURE 98.7. She will continue on Vanco and meropenem as per infectious disease 12/21 Tm 99.8, WBC stable at 10.6 D1 vanco/shamar (D3 ceftriaxone 2 gm-last dose 12/21) 12/20 LP done 2 persistent fluid collection at craniotomy site, MS change and fever to 100.4: GS -, CX P, 954 WBC (76% PMN), 111 prot, 50 glc (no ho MRSA)- therefore, dw Anna and changed to vanco/shamar (unknown PCN allergy, but tolerated ceftriaxone) 12/20 LA 1.2 (12/19 3.5!) (3) Seizure disorder Problem Text: 12/22: CSF culture did not show any organisms, CSF PCR still pending 12/21/2016: LP completed a 12/20/2016. Patient has some soreness in the back around puncture site. CSF culture pending. 2 focus 2 brain tumor resection 12/[address] head c stable STS/fluid collection seen on 12/18 CT-case dw Dr. Jordan who agrees favors fluid is 2 to necrotic tissue, but given fever/MS change, agrees c LP (as did Dr. Castillo)-case dw c Dr. Arturo Foster who wanted clearance from [facility] 12/19 Dr. Herrera increased leve to 1000 BID given sz episode-partially 2 UTI/hypoNa /? fluid collection 12/19 EEG This EEG in awake, drowsy states, stage 1 and 2 sleep is abnormal due to presence of left temporal intermittent rhythmic delta activity/temporal intermittent rhythmic delta activity (TIRDA) with separate to left central head region consistent with focal cortical structural or functional abnormality with epileptic potential. No clinical or electrographic seizures were recorded. Clinical correlation is recommended. DD: KERRI HERRERA MD 12/20/16 0658 12/18 CT head The patient is status post resection of a left temporal lobe tumor. There is postoperative change in the posterior left temporal lobe with decreased mass effect compared to the previous study. There is increased soft tissue swelling and fluid overlying the craniotomy site. (4) Anemia Status: Chronic Problem Specific Plan: Monitor Clinically Problem Text: 12/21/2016: Hemoglobin improving today, 10.8. caution on chronic po steroid (on panto 40 QD for px) 12/20 hgb down to 9.4 (10.2, 11.2)-check HO baseline hgb 12s (12/09 wt 69, 12/20 79) On Supplemental B12 and Iron. 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 Patient was set up for biopsy of the nodule to rule out primary lesion. The nodule could not be biopsied by interventional radiology secondary to size. Dr. Morales noted that the lesion was unlikely a primary metastatic lesion. Patient proceeded to have a biopsy of her brain mass which resulted in glioblastoma. Lung nodule will need to be followed as outpatient. 11/24/2016: I reconfirmed this assessment with Dr. 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 (professor of law) 11/19/16: Per Interventional Rad: most likely not a primary. Proceed with brain mass bx and pathology prior to lung nodule eval. 11/17/2016: Pulmonology, informal consult, advised against bronchoscopy. Recommends interventional to see if can get to nodule. Dr. Jordan is requesting that we strongly consider working up this lung nodule while she is in the hospital. He has a strong clinical suspicion that the brain lesion is metastatic. Additionally if she has a primary lung cancer it may change his recommendation to do an excisional bx of the brain lesion which almost assuredly leave her with some weakness and speech deficits. Tomorrow we should contact IR and/or Pulm to see whether CT guided bx or navigational bronchoscopy with bx is the best way to get a sample of this lesion. ------ CT Chest: 14 mm nodule in the anterior segment of the right lower lobe, not present on the comparison study. (8) Brain compression Status: Acute Response to Treatment: Controlled Problem Specific Plan: Monitor Clinically Problem Text: Dr. Jordan, brain edema and swelling treated with the left lateral ventriculostomy on 11/24/16. (9) HTN (hypertension) Status: Chronic Problem Specific Plan: Monitor Clinically Problem Text: BP is well controlled today. Continue current regimen, monitor. 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 Jordan (13) Hemorrhoids Status: Chronic Problem Text: 12/22: Order placed for topical Preparation H (14) Physical deconditioning Problem Text: 12/22: Order is renewed for PT and OT Plan/VTE VTE Prophylaxis Ordered?: Yes (TEDs and SCDs) VTE Exclusion Pharmacological: Bleeding Risk (intracranial procedure) Plan Therapy: PT, OT Anticipated Discharge: Home With Services (based on therapy's recommendation) VS, I&O, 24H, Fishbone Vital Signs/I&O Vital Signs Date Time Temp Pulse Resp B/P (MAP) Pulse Ox O2 Delivery O2 Flow Rate FiO2 12/22/16 16:00 98.2 99 20 120/60 (80) 98 Room Air 12/19/16 06:00 2.0 I&O- Last 24 Hours up to 6 AM 12/23/16 06:00 Intake Total 480 ml Output Total 750 ml Balance -270 ml Laboratory Data 24H LABS Laboratory Tests 2 12/22/16 05:22: Immature Granulocyte % (Auto) , Nucleated Red Blood Cells % (auto) 0.0, Neutrophils 84H, Band Neutrophils 2, Lymphocytes (Manual) 7L, Monocytes (Manual ) 7, Platelet Estimate NORMAL, Anisocytosis 1+, Ovalocytes 1+, Anion Gap 7L, Glomerular Filtration Rate > 60.0, Blood Urea Nitrogen 11, Creatinine 0.33L, Sodium Level 137, Potassium Level 3.9, Chloride Level 104, Carbon Dioxide Level 26, Calcium Level 8.2L, Aspartate Amino Transf (AST/SGOT) 10, Alanine Aminotransferase (ALT/SGPT) 24, Alkaline Phosphatase 35L, Total Bilirubin 0.4, Total Protein 5.1L, Albumin 2.5L, Albumin/Globulin Ratio 0.96L 12/22/16 16:53: CBC/BMP Laboratory Tests 12/22/16 05:22 Red Blood Count 3.56 L, Mean Corpuscular Volume 82.6, Mean Corpuscular Hemoglobin 27.2, Mean Corpuscular Hemoglobin Concent 33.0, Red Cell Distribution Width 15.8 H, Calcium Level 8.2 L, Aspartate Amino Transf (AST/SGOT ) 10, Alanine Aminotransferase (ALT/SGPT) 24, Alkaline Phosphatase 35 L, Total Bilirubin 0.4, Total Protein 5.1 L, Albumin 2.5 L Microbiology Microbiology 12/19/16 Blood Culture - Preliminary, Resulted No Growth after 72 hours. All specime... 12/20/16 Gram Stain - Final, Complete 12/20/16 CSF Culture - Final, Complete 12/20/16 , Received Pending 12/20/16 Stool Occult Blood (HECTOR) - Final, Complete 12/18/16 Urine Culture - Final, Complete Escherichia Coli GME ATTESTATION GME ATTESTATION My faculty preceptor for this patient encounter was physically present during the encounter and was fully available. ~All aspects of the patient interview, examination, medical decision making process, and medical care plan development were reviewed and approved by the faculty preceptor. The faculty preceptor is aware and concurs with the plan as stated in the body of this note and will attest to such by his/her co-signature. EMMA DUFFY DO Dec 22, 2016 17:23
--- NOTE | 2016-12-22 17:40 | PHACANCOPD ---
PHARMACY VANCOMYCIN DOSING Pt Demographics Demographics Patient Age:76 , Weight:75.100 , Gender: female Adjusted Body Weight Date: 12/21/16, Adjusted Body Weight: Kg Events Past 24 Hours Events Past 24 Hours: NO: Dialysis, Diuretic Therapy, Change in CrCl, Fever, Elevation in WBC, Pending Diagnostics, Pending Procedures, Other Vancomycin Vancomycin Target Ranges: 15-20 mcg/ml Vancomycin Load Y/N: No Load Dose Date Time Vancomycin Load Dose: Date: Time: Vancomycin Dose Date: 12/21/16. Current Vancomycin Dose: [1000MG Q12H] Intermittent Dosing?: No Labs Labs Vital Signs Label Value Date Time Patient Temperature 98.2 degrees F 12/22/16 1200 Temperature Source Temporal 12/22/16 1200 Patient Temperature 98.2 degrees F 12/22/16 1600 Temperature Source Temporal 12/22/16 1600 Item Value Date Time White Blood Count 10.6 10^3/uL H 12/21/16 0412 White Blood Count 9.3 10^3/uL 12/22/16 0522 Creatinine 0.48 MG/DL L 12/21/16 0412 Creatinine 0.33 MG/DL L 12/22/16 0522 Vancomycin Level Trough 12.3 UG/ML 12/22/16 1653 Micro Microbiology 12/19/16 Blood Culture - Preliminary, Resulted No Growth after 72 hours. All specime... 12/20/16 Gram Stain - Final, Complete 12/20/16 CSF Culture - Final, Complete 12/20/16 , Received Pending 12/20/16 Stool Occult Blood (HECTOR) - Final, Complete 12/18/16 Urine Culture - Final, Complete Escherichia Coli Creatinine Clearance Date:12/21/16. Creatinine Clearance: [75].LIKELY LESS THAN THIS Pending Labs Trough 12-22 @1700 Assessment and Plan Maintaining Current Dose?: Yes Reason for dose change: No Dose Change Pharmacist Note Pharmacist Note 12/22/16: Trough drawn@1653 before 3rd dose came back @ 12.3mcg.ml. Patient has only received 2 doses and is not yet at steady state. I will maintain current dose and schedule another trough for tomorrow. We will continue to monitor and adjust dose as needed. Date: 12/21/16. Pharmacist note:Dosed at 1000mg q12h with a trough ordered for 12-22 @1700. Will continue to monitor and make adjustments as needed. NADEEM MORALES PHARMACY Dec 22, 2016 17:40
[2016-12-22] MEDS: PREPARATION H OINTMENT (HEMORRHOID) PR PRN (18:54)
--- NOTE | 2016-12-22 20:50 | IPN ---
DATE: 12/22/2016 Mrs. Santos was more confused this weekend and therefore, she had a lumbar puncture done on 12/20/2016. White count was 954 with 76% neutrophils, glucose 50, and total protein 119. Urine culture was positive for Escherichia (E) coli. The patient was switched to vancomycin and meropenem for possible nosocomial meningititis She denies any headache. She has some low back pain. No nausea, vomiting or diarrhea. MEDICATIONS: - meropenem 2 grams IV every eight hours - vancomycin 1 gram IV every 12 hours, currently day number two VITAL SIGNS: Temperature is 98.2, pulse 99, respirations 20, blood pressure 120/60, oxygen saturation 98% on room air. Maximum temperature (T-max) was 99.8 two days ago. HEART: Normal S1, S2. No murmurs. LUNGS: Clear. No wheezes, rales or rhonchi. ABDOMEN: Obese. EXTREMITIES: Trace edema. Neck is not stiff. At the area of the incision, vickie were removed but there is an increased collection subcutaneously underneath the incision which is fluctuant. There is a prominent pulsating artery as well. IMPRESSION: 1. 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 Culture is negative but cerebrospinal fluid (CSF) multiplex panel is pending. Cultures could be negative due to the fact that the patient was on Rocephin before the lumbar puncture was done. 2. Escherichia (E) coli bacteruria, asymptomatic except for low back pain that is covered with current antibiotics. 3. Subcutaneous fluid collection. It could be a seroma versus a communicating hydrocephalus, which could have been the portal of entry for the meningitis. PLAN: Continue IV vancomycin and meropenem pending results of culture. Consider aspirating some of the fluid to see if could obtain a pathogen from the subcutaneous collection and see if it is infected and needs to be drained. I would consult interventional radiology after discussing with neurosurgery whether this fluid collection could be drained to obtain a specimen. ANNITA
[2016-12-22] MEDS: ROSUVASTATIN 10 MG TAB (CRESTOR) PO SCH (21:25)
[2016-12-22] MEDS: OLANZapine 2.5MG TABLET PO SCH (21:26)
[2016-12-23] VITALS (7 sets, daily range): BP systolic 100–144; BP diastolic 57–79
[2016-12-23] MEDS: MEROPENEM INJ 2 GM in NS 100 ML IV SCH ×3 (02:05→17:24)
[2016-12-23] MEDS: MORPHINE 2 MG/ML 1ML SYRINGE IV PRN ×3 (02:05→15:30)
[2016-12-23] MEDS: VANCOMYCIN HCL 1,000 MG, VIAL MATE ADAPTER 1 EACH in D5W 250 ML IV SCH ×2 (05:24→18:00)
[2016-12-23] MEDS: SLF 3 ML SYR IV SCH ×3 (05:24→22:00)
[2016-12-23] MEDS: ACETAMINOPHEN 500 MG TAB PO PRN ×2 (06:44→11:55)
[2016-12-23] MEDS: ADVAIR HFA 115/21MCG INHALER INH SCH ×2 (07:48→20:27)
[2016-12-23] MEDS: NYSTATIN 100,000 UNITS/GM TOPICAL PWD 15 GM TOP SCH ×2 (08:05→21:00)
[2016-12-23] MEDS: MIRALAX *UNIT DOSE* 17GM PACKET PO SCH (08:06)
[2016-12-23] MEDS: levETIRAcetam 250MG TABLET (KEPPRA) PO SCH ×2 (08:06→22:43)
[2016-12-23] MEDS: CYANOCOBALAMIN 500 MCG TAB PO SCH (08:06)
[2016-12-23] MEDS: FERROUS GLUCONATE 324 MG TAB PO SCH (08:07)
[2016-12-23] MEDS: CALCIUM/VITAMIN D 500 MG TAB PO SCH ×2 (08:07→22:44)
[2016-12-23] MEDS: IRBESARTAN 150 MG TAB PO SCH ×2 (08:07→22:42)
[2016-12-23] MEDS: BISOPROLOL FUMARATE 5 MG TAB PO SCH ×2 (08:07→22:45)
[2016-12-23] MEDS: LORATADINE 10 MG TAB PO SCH (08:07)
[2016-12-23] MEDS: PANTOPRAZOLE 40MG TAB (PROTONIX) PO SCH (08:08)
--- NOTE | 2016-12-23 10:13 | IPNPDOC ---
Subjective Date Seen The patient was seen on 12/23/16. Subjective Chief Complaint/HPI The patient is a 76-year-old female admitted with a reason for visit of Brain Mass. Events since last encounter Pt this morning tells me that she would like to be in [place] where she can share a hospital room with a friend who has the same condition as her. She denies pain. General: Reports: Fatigue Constitutional: Denies: Fever Pulmonary: Denies: Dyspnea, Cough Cardiovascular: Denies: Chest Pain, Palpitations Gastrointestinal: Denies: Nausea, Vomiting, Diarrhea Psych: Reports: Memory Issues Objective Physical Examination General Exam: Positive: Cooperative, No Acute Distress, Negative: Alert Chest Exam: Positive: Clear to auscultation, Normal air movement, Negative: Rales, Rhonchi, Wheezing Heart Exam: Positive: Rate Normal, Regular Rhythm, Normal S1, Normal S2, Negative: Gallops, Murmurs, Rubs Abdomen Exam: Positive: Normal bowel sounds, Soft, Negative: Tenderness, Hepatospenomegaly, Mass Extremity Exam: Negative: Edema Psych Exam: Negative: Mental status NL (she appears confused this morning, she is oriented to person and place but not time. ) Assessment /Plan Problems (1) Meningitis Status: Acute Response to Treatment: Stable, Improving Discussed With: Nurse, Patient Problem Specific Plan: Consult Specialist, Monitor Clinically, Repeat Labs Problem Text: Pt with Nosocomial meningitis, she is being followed by ID. She has had LP with pleocytosis and neutrophils, her T protein is elevated. her cultures have been Neg but she had received Rocephin prior to LP being performed. Vanco/Meropenam dosing per ID. (2) Glioblastoma multiforme Status: Chronic Problem Text: 11/24/16 sp Stent-based frameless stereotactic left posterior temporal-parietal craniotomy with microsurgical resection of large mass, cranioplasty, and marked brain edema and swelling treated with the left lateral ventriculostomy for Left temporal-parietal GBM with brain swelling by Dr. Jordan (3) Diastolic congestive heart failure Permanent Comment: 12/22/16: Echocardiogram showed hyperdynamic left ventricular systolic function, LVEF 75%, atrial flutter. Moderate elevation of pulmonary artery systolic pressure. Mild aortic valve sclerosis, mild aortic regurgitation. Negative for mitral regurgitation. Mild left atrial dilation Last Edited By: Aydee Hernandez PA-C on Dec 23, 2016 10:09 Status: Chronic Problem Text: 12/23 appears compensated. 12/21 BNP 1541 c mild decompensation-held IVF and amlo 2.5 BID-repeat TTE (4) Fever Status: Resolved Problem Text: 12/23 afebrile since admission 12/22: Patient has been afebrile, MAXIMUM TEMPERATURE 98.7. She will continue on Vanco and meropenem as per infectious disease 12/21 Tm 99.8, WBC stable at 10.6 D1 vanco/shamar (D3 ceftriaxone 2 gm-last dose 12/21) 12/20 LP done 2 persistent fluid collection at craniotomy site, MS change and fever to 100.4: GS -, CX P, 954 WBC (76% PMN), 111 prot, 50 glc (no ho MRSA)- therefore, thomas Castillo and changed to vanco/shamar (unknown PCN allergy, but tolerated ceftriaxone) 12/20 LA 1.2 (12/19 3.5!) (5) Seizure disorder Status: Chronic Problem Text: 12/22: CSF culture did not show any organisms, CSF PCR still pending 12/21/2016: LP completed a 12/20/2016. Patient has some soreness in the back around puncture site. CSF culture pending. 2 focus 2 brain tumor resection 12/[address] head c stable STS/fluid collection seen on 12/18 CT-case dw Dr. Jordan who agrees favors fluid is 2 to necrotic tissue, but given fever/MS change, agrees c LP (as did Dr. Castillo)-case dw c Dr. Arturo Foster who wanted clearance from [facility] 12/19 Dr. Herrera increased leve to 1000 BID given sz episode-partially 2 UTI/hypoNa /? fluid collection 12/19 EEG This EEG in awake, drowsy states, stage 1 and 2 sleep is abnormal due to presence of left temporal intermittent rhythmic delta activity/temporal intermittent rhythmic delta activity (TIRDA) with separate to left central head region consistent with focal cortical structural or functional abnormality with epileptic potential. No clinical or electrographic seizures were recorded. Clinical correlation is recommended. DD: KERRI HERRERA MD 12/20/16 0658 12/18 CT head The patient is status post resection of a left temporal lobe tumor. There is postoperative change in the posterior left temporal lobe with decreased mass effect compared to the previous study. There is increased soft tissue swelling and fluid overlying the craniotomy site. (6) Anemia Status: Chronic Problem Specific Plan: Monitor Clinically Problem Text: 12/23 - No labs ordered, will obtain. Hgb had trended from 10.8 12/21 to 9.7 12/2212/21/2016: Hemoglobin improving today, 10.8. caution on chronic po steroid (on panto 40 QD for px) 12/20 hgb down to 9.4 (10.2, 11.2)-check HO baseline hgb 12s (12/09 wt 69, 12/20 79) On Supplemental B12 and Iron. 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 Patient was set up for biopsy of the nodule to rule out primary lesion. The nodule could not be biopsied by interventional radiology secondary to size. Dr. Morales noted that the lesion was unlikely a primary metastatic lesion. Patient proceeded to have a biopsy of her brain mass which resulted in glioblastoma. Lung nodule will need to be followed as outpatient. 11/24/2016: I reconfirmed this assessment with Dr. 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 (manager credit) 11/19/16: Per Interventional Rad: most likely not a primary. Proceed with brain mass bx and pathology prior to lung nodule eval. 11/17/2016: Pulmonology, informal consult, advised against bronchoscopy. Recommends interventional to see if can get to nodule. Dr. Jordna is requesting that we strongly consider working up this lung nodule while she is in the hospital. He has a strong clinical suspicion that the brain lesion is metastatic. Additionally if she has a primary lung cancer it may change his recommendation to do an excisional bx of the brain lesion which almost assuredly leave her with some weakness and speech deficits. Tomorrow we should contact IR and/or Pulm to see whether CT guided bx or navigational bronchoscopy with bx is the best way to get a sample of this lesion. ------ CT Chest: 14 mm nodule in the anterior segment of the right lower lobe, not present on the comparison study. (10) Brain compression Status: Acute Response to Treatment: Controlled Problem Specific Plan: Monitor Clinically Problem Text: Dr. Jordan, brain edema and swelling treated with the left lateral ventriculostomy on 11/24/16. (11) HTN (hypertension) Status: Chronic Problem Specific Plan: Monitor Clinically Problem Text: BP is well controlled today. Continue current regimen, monitor. (12) CAD (coronary artery disease) Status: Chronic Problem Specific Plan: Monitor Clinically Problem Text: No active symptoms (13) COPD (chronic obstructive pulmonary disease) Status: Chronic Problem Specific Plan: Monitor Clinically Problem Text: Stable (14) Hemorrhoids Status: Chronic Problem Text: 12/22: Order placed for topical Preparation H (15) Physical deconditioning Problem Text: 12/22: Order is renewed for PT and OT Plan/VTE VTE Prophylaxis Ordered?: Yes (TEDs and SCDs) VTE Exclusion Pharmacological: Bleeding Risk (intracranial procedure) Plan Therapy: PT, OT Anticipated Discharge: Home With Services (based on therapy's recommendation) VS, I&O, 24H, Fishbone Vital Signs/I&O Vital Signs Date Time Temp Pulse Resp B/P (MAP) Pulse Ox O2 Delivery O2 Flow Rate FiO2 12/23/16 09:26 18 Room Air 12/23/16 08:07 126/60 12/23/16 08:07 77 12/23/16 07:25 98.6 96 12/23/16 02:15 2.0 I&O- Last 24 Hours up to 6 AM 12/24/16 06:00 Intake Total 370 ml Balance 370 ml Laboratory Data 24H LABS Laboratory Tests 2 12/22/16 16:53: Vancomycin Level Trough 12.3 Microbiology Microbiology 12/19/16 Blood Culture - Preliminary, Resulted No Growth after 72 hours. All specime... 12/20/16 Fungal Smear, Received Pending 12/20/16 Fungal Culture, Received Pending 12/20/16 Gram Stain - Final, Complete 11/11/17 CSF Culture - Final, Complete 12/20/16 , Received Pending 12/20/16 Stool Occult Blood (HECTOR) - Final, Complete 12/18/16 Urine Culture - Final, Complete Escherichia Coli AYDEE HERNANDEZ PA-C Dec 23, 2016 10:13
[2016-12-23 11:23] LABS: MEAN CORPUSCULAR HEMOGLOBIN 27.2 pg (27.0-33.0); MEAN CORPUSCULAR HGB CONC 32.3 g/dl (32.0-36.5); MEAN CORPUSCULAR VOLUME 84.2 fl (80.0-96.0); PLATELET COUNT, AUTOMATED 203 10^3/uL (150-450); RED CELL DISTRIBUTION WIDTH 16.1 % (11.5-14.5)
[2016-12-23 11:48] LABS: ALBUMIN 2.6 GM/DL (3.2-5.2); ALKALINE PHOSPHATASE 43 U/L (45-117); ALT/SGPT 29 U/L (12-78); ANION GAP 6 MEQ/L (8-16); AST/SGOT 16 U/L (7-37); BILIRUBIN,TOTAL 0.5 MG/DL (0.2-1.0); BLOOD UREA NITROGEN 14 MG/DL (7-18); CALCIUM LEVEL 8.5 MG/DL (8.8-10.2); CARBON DIOXIDE LEVEL 30 MEQ/L (21-32); CHLORIDE LEVEL 100 MEQ/L (98-107); CREATININE FOR GFR 0.65 MG/DL (0.55-1.02); GLUCOSE, FASTING 87 MG/DL (83-110); POTASSIUM SERUM 3.4 MEQ/L (3.5-5.1); SODIUM LEVEL 136 MEQ/L (136-145); TOTAL PROTEIN 5.2 GM/DL (6.4-8.2)
[2016-12-23 11:54] LABS: GLOMERULAR FILTRATION RATE > 60.0 (>39)
[2016-12-23 11:56] LABS: ADD MANUAL DIFFER YES; DIFF SLIDE NUMBER 199; POS COUNT POS FLAG; POSITIVE MORPH POS FLAG
[2016-12-23 12:44] LABS: BANDS 1 % (< 11)
[2016-12-23 12:46] LABS: ANISOCYTOSIS 1+
[2016-12-23] MEDS ORDERED: POTASSIUM CHLORIDE 10 MEQ SR TABLET PO ONE (16:00)
[2016-12-23 19:04] LABS: APPEARANCE, CSF CLEAR (CLEAR); COLOR, CSF COLORLESS (COLORLESS); CSF TUBE# CELL CNT TUBE 1
[2016-12-23 19:05] LABS: CSF DIFF IF INDICATED? YES (NO)
[2016-12-23 19:07] LABS: GLUCOSE CSF 15 MG/DL (40-75)
[2016-12-23] MEDS: ROSUVASTATIN 10 MG TAB (CRESTOR) PO SCH (22:43)
[2016-12-23] MEDS: OLANZapine 2.5MG TABLET PO SCH (22:45)
[2016-12-24] VITALS (14 sets, daily range): BP systolic 76–150; BP diastolic 38–67
--- NOTE | 2016-12-24 01:40 | REPUSA ---
CLINICAL HISTORY: Headache. TECHNIQUE: Multiple axial CT images were obtained through the brain without IV contrast material. COMMENTS: Comparison to prior exam on 12/20/2016. Unchanged left pterional craniotomy. Unchanged underlying left temporal/occipital encephalomalacia. Unchanged mild edema and effacement of the adjacent sulci. Unchanged overlying soft tissue edema. There is normal configuration of sella turcica. There are no intra or extra-axial collections. There is no mass effect or midline shift. There is no evidence of hematoma formation. No hydrocephalus is p resent. The ventricles are symmetrical. No abnormal calcifications are present. There is diffuse age-appropriate cerebellar and cerebral atrophy with proportionally dilated ventricl es and cortical sulci. There are bilateral periventricular and subcortical white matter hypolucencies compatible with mild c hronic microvascular disease. IMPRESSION: 1. Age-appropriate cerebellar and cerebral atrophy. 2. Mild chronic microvascular disease. Unchanged left pterional craniotomy with underlying hypodensit y in the left temporal and occipital lobes. 3. No evidence of acute intracranial pathology. Thank you for your kind referral of this patient.
[2016-12-24] MEDS ORDERED: ACETAMINOPHEN 650 MG SUPP PR PRN (02:00)
[2016-12-24] MEDS: MEROPENEM INJ 2 GM in NS 100 ML IV SCH ×3 (02:21→17:13)
[2016-12-24] MEDS: SLF 3 ML SYR IV SCH ×3 (06:00→22:10)
--- NOTE | 2016-12-24 06:11 | RADONC ---
RADIATION ONCOLOGY PROGRESS NOTE DATE: 12/23/2016 CHART NUMBER: [id number] We have been scheduling Ms. Santos for CT simulation for her IMRT brain treatment for several weeks. Initially the patient did not have her vickie removed and was noted to have swelling around the scar site so we postponed simulation at that time. The second time we tried to stimulate the patient once again, the vickie had not yet been removed. It was noted that she still had continued swelling and inflammation around the scar site which was not healed. We postponed the simulation for today. Apparently as we were attempting to scheduled the patient to come down, she appears to have meningitis. We have a note here from Dr. Lennox Castillo reporting that the patient appears to have a nosocomial meningitis with pleocytosis. The patient is being worked up at this time for her meningitis. We are therefore rescheduling the patient's CT simulation until she is somewhat clinically improved.
[2016-12-24] MEDS: VANCOMYCIN HCL 1,000 MG, VIAL MATE ADAPTER 1 EACH in D5W 250 ML IV SCH ×2 (06:35→18:44)
[2016-12-24 06:41] LABS: MEAN CORPUSCULAR HEMOGLOBIN 26.9 pg (27.0-33.0); MEAN CORPUSCULAR HGB CONC 32.9 g/dl (32.0-36.5); MEAN CORPUSCULAR VOLUME 81.7 fl (80.0-96.0); PLATELET COUNT, AUTOMATED 229 10^3/uL (150-450); WHITE BLOOD COUNT 12.2 10^3/uL (4.0-10.0)
[2016-12-24 06:42] LABS: ADD MANUAL DIFFER YES; DIFF SLIDE NUMBER 75; POS COUNT POS FLAG; POSITIVE MORPH POS FLAG
[2016-12-24] MEDS: ADVAIR HFA 115/21MCG INHALER INH SCH ×2 (07:07→19:59)
[2016-12-24 07:15] LABS: ALBUMIN 2.4 GM/DL (3.2-5.2); ALBUMIN/GLOBULIN RATIO 0.75 (1.00-1.93); ALKALINE PHOSPHATASE 44 U/L (45-117); ALT/SGPT 29 U/L (12-78); ANION GAP 6 MEQ/L (8-16); AST/SGOT 14 U/L (7-37); BILIRUBIN,TOTAL 0.5 MG/DL (0.2-1.0); BLOOD UREA NITROGEN 12 MG/DL (7-18); CALCIUM LEVEL 8.8 MG/DL (8.8-10.2); CARBON DIOXIDE LEVEL 28 MEQ/L (21-32); CHLORIDE LEVEL 98 MEQ/L (98-107); CREATININE FOR GFR 0.57 MG/DL (0.55-1.02); GLOMERULAR FILTRATION RATE > 60.0 (>39); GLUCOSE, FASTING 99 MG/DL (83-110); POTASSIUM SERUM 3.5 MEQ/L (3.5-5.1); SODIUM LEVEL 132 MEQ/L (136-145); TOTAL PROTEIN 5.6 GM/DL (6.4-8.2)
[2016-12-24 07:32] LABS: BANDS 1 % (< 11)
[2016-12-24 07:33] LABS: ANISOCYTOSIS 1+; POIKILOCYTOSIS 1+
[2016-12-24] MEDS: IRBESARTAN 150 MG TAB PO SCH ×2 (09:00→20:33)
[2016-12-24] MEDS: BISOPROLOL FUMARATE 5 MG TAB PO SCH ×2 (09:00→20:32)
[2016-12-24] MEDS: CYANOCOBALAMIN 500 MCG TAB PO SCH (09:54)
[2016-12-24] MEDS: levETIRAcetam 250MG TABLET (KEPPRA) PO SCH ×2 (09:54→20:33)
[2016-12-24] MEDS: FERROUS GLUCONATE 324 MG TAB PO SCH (09:54)
[2016-12-24] MEDS: PANTOPRAZOLE 40MG TAB (PROTONIX) PO SCH (09:54)
[2016-12-24] MEDS: CALCIUM/VITAMIN D 500 MG TAB PO SCH ×2 (09:54→20:33)
[2016-12-24] MEDS: LORATADINE 10 MG TAB PO SCH (09:56)
[2016-12-24] MEDS: ACETAMINOPHEN 500 MG TAB PO PRN ×2 (09:57→20:32)
[2016-12-24] MEDS: MIRALAX *UNIT DOSE* 17GM PACKET PO SCH (10:03)
[2016-12-24] MEDS: NYSTATIN 100,000 UNITS/GM TOPICAL PWD 15 GM TOP SCH ×2 (11:12→21:00)
[2016-12-24] MEDS ORDERED: NS 1,000 ML IV ONE ×2 (12:45→13:00)
[2016-12-24 14:45] LABS: ABG BASE EXCESS -3.7 (-2.0-2.0); ABG HCO3 20.7 MEQ/L (22.0-26.0); ABG PARTIAL PRESSURE CO2 35.3 mmHg (35.0-45.0); ABG PARTIAL PRESSURE O2 112.1 mmHg (75.0-100.0); ABG STANDARD HCO3 21.4 MEQ/L (22.0-26.0); ABG TOTAL CO2 21.8 MEQ/L (23.0-31.0); ABG pH (ARTERIAL) 7.387 UNITS (7.350-7.450)
--- NOTE | 2016-12-24 14:45 | REP ---
Clinical: Line placement. Comparison: 12/19/2016. Findings: Right subclavian catheter with tip in the SVC. Mediastinum and cardiac silhouette remains stable. Indistinct pulmonary vasculature with increased interstitial markings and bibasilar hazy opacities suggest pulmonary vascular congestion/interstitial edema with bibasilar atelectasis and possible layering effusion (left greater than right). Skeletal structures demonstrate age-related osteopenia and degenerative change. Evidence for prior sternotomy and CABG. Impression: 1. Right subclavian catheter with tip in the SVC. No pneumothorax. 2. Chronic interstitial changes and cardiomegaly. 3. Suspected elements of pulmonary vascular congestion/interstitial edema with possible basilar atelectasis and layering effusion. Signed by Grady Stewart MD 12/24/2016 02:36 P
[2016-12-24] MEDS ORDERED: SODIUM CHLORIDE 0.9% 1000 ML IV ONE (15:00)
--- NOTE | 2016-12-24 16:08 | CCN ---
DATE: 12/24/2016 I was called to the intensive care unit to evaluate this 76-year-old female hospitalized since early November initially for diagnosis and treatment of glioblastoma. She is post neurosurgery, was recovering on the floor, transferred to the intensive care unit today due to hypotension and decreased level of consciousness. During the extensive hospital stay, she did have recent sampling of her cerebrospinal fluid which showed nothing on culture. At bedside, her temperature is 101.4, pulse rate 71, respirations 18, blood pressure 78/48. She is obtunded, responds to voice and withdraws from pain. HEENT: Pupils are 3mm and react to light. Oral mucosa is dry. Neck is supple, there is no meningismus. Heart sounds are regular without appreciate murmur. Her breath sounds are mildly coarse and diminished but she has air exchange in all jeronimo. Abdomen is soft, there are bowel sounds in the right lower quadrant. Extremities show no significant edema. DIAGNOSTIC STUDIES: Sodium 132, potassium 3.5, chloride 98, CO2 28, BUN 12, creatinine 0.57, glucose 99. Her white cell count is 12.2, hemoglobin 11, hematocrit 33, platelet count 229,000. Differential white cell count showing 76% neutrophils and 1 band. The arterial blood gas just drawn showed a pH of 7.38, pCO2 of 35, pO2 of 112. Urinalysis from 12/18/2016, was cloudy, too many white cells to count, 2+ leukocyte esterase. Urine osmolality was 634. At that time, urinary sodium was 71. Chest imaging shows no obvious infiltrate. There are external wires and enlarged heart. The primary problem requiring critical attention is septic shock. IV fluids are infusing. Will begin IV Levophed as soon as a central line can be placed. Targeting mean arterial pressure of 65. Broad-spectrum antibiotics are in place. Will check a serum lactate and follow blood gases. From an infectious disease standpoint, infectious disease (ID) consultation has been performed and broad-spectrum antibiotics are prescribed. Specific etiology for her sepsis is unclear. I suspect a possible urinary source. Fluid volume is in question. We are giving her resuscitation fluids. Will check a central venous pressure (CVP) once the catheter is in place. Deep venous thrombosis (DVT) prophylaxis is being addressed with sequential hose. Ulcer prophylaxis is being addressed with Protonix. Glycemic control. Blood sugar is acceptable at this point. Will continue close monitoring. The patient's condition is critical. Prognosis is guarded. 87 minutes was spent in the provision of bedside critical care and coordination exclusive of any time consumed performing procedures.
[2016-12-24 17:45] LABS: OSMOLALITY URINE 296 MOSM/KG (500-800)
--- NOTE | 2016-12-24 18:23 | IPNPDOC ---
Subjective Date Seen The patient was seen on 12/24/16. Subjective Chief Complaint/HPI The patient is a 76-year-old female admitted with a reason for visit of Brain Mass. Events since last encounter Patient today has become lethargic, having fevers, low blood pressure. Patient reports that she is feeling all right but is still having pain in her head. Constitutional: Reports: Fever ENT: Reports: Head Aches Objective Physical Examination General Exam: Positive: Cooperative, Mild Distress (lethargic on examination), Negative: Alert Chest Exam: Positive: Clear to auscultation, Normal air movement, Negative: Rales, Rhonchi, Wheezing Heart Exam: Positive: Rate Normal, Regular Rhythm, Normal S1, Normal S2, Negative: Gallops, Murmurs, Rubs Abdomen Exam: Positive: Normal bowel sounds, Soft, Negative: Tenderness, Hepatospenomegaly, Mass Extremity Exam: Positive: Edema (bilateral pitting to the level of mid lorenzo) Assessment /Plan Problems (1) Septic shock Status: Acute Problem Text: 12/24: Developed septic shock today, T-max overnight of 103.4, hypotension with blood pressure as low as 76/42. Patient was given a 30 mL per KG fluid bolus. Patient was transferred to ICU and intensive care was consulted. (2) Meningitis Status: Acute Response to Treatment: Stable, Improving Discussed With: Nurse, Patient Problem Specific Plan: Consult Specialist, Monitor Clinically, Repeat Labs Problem Text: 12/24: Patient had drain of scalp swelling yesterday which was consistent CSF, showing 718 white blood cells, 95% PMNs, glucose of 15, total protein of 82. She is concurrently being managed by infectious disease, she will continue on vancomycin and meropenem. 12/23: Pt with Nosocomial meningitis, she is being followed by ID. She has had LP with pleocytosis and neutrophils, her T protein is elevated. her cultures have been Neg but she had received Rocephin prior to LP being performed. Vanco/ Meropenam dosing per ID. (3) Glioblastoma multiforme Status: Chronic Problem Text: 11/24/16 sp Stent-based frameless stereotactic left posterior temporal-parietal craniotomy with microsurgical resection of large mass, cranioplasty, and marked brain edema and swelling treated with the left lateral ventriculostomy for Left temporal-parietal GBM with brain swelling by Dr. Jordan (4) Diastolic congestive heart failure Permanent Comment: 12/22/16: Echocardiogram showed hyperdynamic left ventricular systolic function, LVEF 75%, atrial flutter. Moderate elevation of pulmonary artery systolic pressure. Mild aortic valve sclerosis, mild aortic regurgitation. Negative for mitral regurgitation. Mild left atrial dilation Last Edited By: Alexus Herman PA-C on Dec 23, 2016 10:09 Status: Chronic Problem Text: 12/23 appears compensated. 12/21 BNP 1541 c mild decompensation-held IVF and amlo 2.5 BID-repeat TTE (5) Fever Status: Resolved Problem Text: 12/24: Fever recurred, MAXIMUM TEMPERATURE overnight of 103.4 12/23 afebrile since admission 12/22: Patient has been afebrile, MAXIMUM TEMPERATURE 98.7. She will continue on Vanco and meropenem as per infectious disease 12/21 Tm 99.8, WBC stable at 10.6 D1 vanco/shamar (D3 ceftriaxone 2 gm-last dose 12/21) 12/20 LP done 2 persistent fluid collection at craniotomy site, MS change and fever to 100.4: GS -, CX P, 954 WBC (76% PMN), 111 prot, 50 glc (no ho MRSA)- therefore, thomas Castillo and changed to vanco/shamar (unknown PCN allergy, but tolerated ceftriaxone) 12/20 LA 1.2 (12/19 3.5!) (6) Seizure disorder Status: Chronic Problem Text: 12/22: CSF culture did not show any organisms, CSF PCR still pending 12/21/2016: LP completed a 12/20/2016. Patient has some soreness in the back around puncture site. CSF culture pending. 2 focus 2 brain tumor resection 12/[address] head c stable STS/fluid collection seen on 12/18 CT-case dw Dr. Jordan who agrees favors fluid is 2 to necrotic tissue, but given fever/MS change, agrees c LP (as did Dr. Castillo)-case dw c Dr. Arturo Foster who wanted clearance from [facility] 12/19 Dr. Herrera increased leve to 1000 BID given sz episode-partially 2 UTI/hypoNa /? fluid collection 12/19 EEG This EEG in awake, drowsy states, stage 1 and 2 sleep is abnormal due to presence of left temporal intermittent rhythmic delta activity/temporal intermittent rhythmic delta activity (TIRDA) with separate to left central head region consistent with focal cortical structural or functional abnormality with epileptic potential. No clinical or electrographic seizures were recorded. Clinical correlation is recommended. DD: KERRI HERRERA MD 12/20/16 0658 12/18 CT head The patient is status post resection of a left temporal lobe tumor. There is postoperative change in the posterior left temporal lobe with decreased mass effect compared to the previous study. There is increased soft tissue swelling and fluid overlying the craniotomy site. (7) Anemia Status: Chronic Problem Specific Plan: Monitor Clinically Problem Text: 12/23 - No labs ordered, will obtain. Hgb had trended from 10.8 12/21 to 9.7 12/2212/21/2016: Hemoglobin improving today, 10.8. caution on chronic po steroid (on panto 40 QD for px) 12/20 hgb down to 9.4 (10.2, 11.2)-check HO baseline hgb 12s (12/09 wt 69, 12/20 79) On Supplemental B12 and Iron. 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 Patient was set up for biopsy of the nodule to rule out primary lesion. The nodule could not be biopsied by interventional radiology secondary to size. Dr. Morales noted that the lesion was unlikely a primary metastatic lesion. Patient proceeded to have a biopsy of her brain mass which resulted in glioblastoma. Lung nodule will need to be followed as outpatient. 11/24/2016: I reconfirmed this assessment with Dr. 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 Proceed with brain mass bx and pathology prior to lung nodule eval. 11/17/2016: Pulmonology, informal consult, advised against bronchoscopy. Recommends interventional to see if can get to nodule. Dr. Jordan is requesting that we strongly consider working up this lung nodule while she is in the hospital. He has a strong clinical suspicion that the brain lesion is metastatic. Additionally if she has a primary lung cancer it may change his recommendation to do an excisional bx of the brain lesion which almost assuredly leave her with some weakness and speech deficits. Tomorrow we should contact IR and/or Pulm to see whether CT guided bx or navigational bronchoscopy with bx is the best way to get a sample of this lesion. ------ CT Chest: 14 mm nodule in the anterior segment of the right lower lobe, not present on the comparison study. (11) Brain compression Status: Acute Response to Treatment: Controlled Problem Specific Plan: Monitor Clinically Problem Text: Dr. Jordan, brain edema and swelling treated with the left lateral ventriculostomy on 11/24/16. (12) HTN (hypertension) Status: Chronic Problem Specific Plan: Monitor Clinically Problem Text: BP is well controlled today. Continue current regimen, monitor. (13) CAD (coronary artery disease) Status: Chronic Problem Specific Plan: Monitor Clinically Problem Text: No active symptoms (14) COPD (chronic obstructive pulmonary disease) Status: Chronic Problem Specific Plan: Monitor Clinically Problem Text: Stable (15) Hemorrhoids Status: Chronic Problem Text: 12/22: Order placed for topical Preparation H (16) Physical deconditioning Problem Text: 12/22: Order is renewed for PT and OT Plan/VTE VTE Prophylaxis Ordered?: Yes (TEDs and SCDs) VTE Exclusion Pharmacological: Bleeding Risk (intracranial procedure) Plan Therapy: PT, OT Anticipated Discharge: Home With Services (based on therapy's recommendation) VS, I&O, 24H, Fishbone Vital Signs/I&O Vital Signs Date Time Temp Pulse Resp B/P (MAP) Pulse Ox O2 Delivery O2 Flow Rate FiO2 12/24/16 16:00 Nasal Cannula 2.0 12/24/16 16:00 98.1 73 19 132/62 (85) 100 I&O- Last 24 Hours up to 6 AM 12/25/16 06:00 Intake Total 1940 ml Output Total 400 ml Balance 1540 ml Laboratory Data 24H LABS Laboratory Tests 2 12/24/16 05:58: Immature Granulocyte % (Auto) , Nucleated Red Blood Cells % (auto) 0.0, Neutrophils 76H, Band Neutrophils 1, Lymphocytes (Manual) 6L, Monocytes (Manual ) 12H, Metamyelocytes 3H, Myelocytes 2H, Platelet Estimate NORMAL, Poikilocytosis 1+, Anisocytosis 1+, Anion Gap 6L, Glomerular Filtration Rate > 60.0, Blood Urea Nitrogen 12, Creatinine 0.57, Sodium Level 132L, Potassium Level 3.5, Chloride Level 98, Carbon Dioxide Level 28, Calcium Level 8.8, Aspartate Amino Transf (AST/SGOT) 14, Alanine Aminotransferase (ALT/SGPT) 29, Alkaline Phosphatase 44L, Total Bilirubin 0.5, Total Protein 5.6L, Albumin 2.4L , Albumin/Globulin Ratio 0.75L 12/24/16 14:29: Blood Gas Bicarbonate Standard 21.4L, Arterial Blood pH 7.387, Arterial Blood Partial Pressure CO2 35.3, Arterial Blood Partial Pressure O2 112.1H, Arterial Blood Total CO2 21.8L, Arterial Blood HCO3 20.7L, Arterial Blood Base Excess - 3.7L, Arterial Blood Oxygen Saturation 97.8 12/24/16 14:43: Lactic Acid Level 1.0 12/24/16 16:18: Urine Appearance CLEAR, Urine Color YELLOW, Urine pH 7.0, Urine Specific [place] 1.010, Urine Protein 1+H, Urine Glucose (UA) 1+H, Urine Ketones TRACEH, Urine Urobilinogen 0.2, Urine Bilirubin NEGATIVE, Urine Leukocyte Esterase NEGATIVE, Urine Blood 1+H, Urine Nitrite NEGATIVE, Urine WBC (Auto) 4H, Urine RBC (Auto) 4H, Urine Hyaline Casts (Auto) 0, Urine Bacteria (Auto) NEGATIVE, Urine Squamous Epithelial Cells 0, Urine Mucus (Auto) SMALL, Urine Sperm (Auto) , Urine Random Osmolality 296L, Osmolality 282 CBC/BMP Laboratory Tests 12/24/16 05:58 Red Blood Count 4.09, Mean Corpuscular Volume 81.7, Mean Corpuscular Hemoglobin 26.9 L, Mean Corpuscular Hemoglobin Concent 32.9, Red Cell Distribution Width 16.0 H, Calcium Level 8.8, Aspartate Amino Transf (AST/SGOT) 14, Alanine Aminotransferase (ALT/SGPT) 29, Alkaline Phosphatase 44 L, Total Bilirubin 0.5, Total Protein 5.6 L, Albumin 2.4 L Microbiology Microbiology 12/24/16 Blood Culture, Received Pending 12/19/16 Blood Culture - Final, Complete NO GROWTH AFTER 5 DAYS 12/23/16 Gram Stain - Final, Resulted 12/23/16 CSF Culture, Resulted Pending 12/20/16 Fungal Smear, Received Pending 12/20/16 Fungal Culture, Received Pending 12/20/16 Gram Stain - Final, Complete 12/20/16 CSF Culture - Final, Complete 12/20/16 - Final, Complete 12/20/16 Stool Occult Blood (HECTOR) - Final, Complete 12/18/16 Urine Culture - Final, Complete Escherichia Coli 12/23/16 Anaerobic Culture, Received Pending GME ATTESTATION GME ATTESTATION My faculty preceptor for this patient encounter was physically present during the encounter and was fully available. All aspects of the patient interview, examination, medical decision making process, and medical care plan development were reviewed and approved by the faculty preceptor. The faculty preceptor is aware and concurs with the plan as stated in the body of this note and will attest to such by his/her cosignature. EMMA DUFFY DO Dec 24, 2016 18:23
[2016-12-24] MEDS: OLANZapine 2.5MG TABLET PO SCH (20:33)
[2016-12-24] MEDS: ROSUVASTATIN 10 MG TAB (CRESTOR) PO SCH (20:33)
[2016-12-24] MEDS: CLOTRIMAZOLE 10 MG TROCHE PO SCH (21:00)
[2016-12-25] VITALS (42 sets, daily range): BP systolic 63–137; BP diastolic 39–73
--- NOTE | 2016-12-25 00:17 | ECGEPIP ---
Stationary ECG Study [facility] Test Date: 2016-12-22 Pat Name: BERENICE SORIA Department: Room: [place] [address] Gender: F [employer] Car [employer]ic: LYNDA : [id number] Requested By: Rodrigo Gregorio Order Number: [id number] Reading MD: Douglas Trejo Measurements Intervals Hecker Rate: 96 P: [place]: 0 QRS: 3 QRSD: 92 T: 23 QT: 361 QTc: 457 Interpretive Statements ATRIAL FIBRILLATION MINIMAL ST DEPRESSION ABNORMAL RHYTHM ECG Compared to the last 2 tracings in the system, rhythm now may be atrial fibrillation Electronically Signed On 12-25-2016 0:17:20 EST by Douglas Trejo
[2016-12-25] MEDS ORDERED: SODIUM CHLORIDE 0.9% 1000 ML IV ONE (01:15)
[2016-12-25] MEDS: NOREPINEPHRINE BITARTRATE 8 MG in D5W 500 ML IV SCH ×2 (01:23→03:20)
[2016-12-25] MEDS: MEROPENEM INJ 2 GM in NS 100 ML IV SCH ×3 (01:37→18:32)
[2016-12-25] MEDS: SLF 3 ML SYR IV SCH ×3 (05:37→21:52)
[2016-12-25] MEDS: VANCOMYCIN HCL 1,000 MG, VIAL MATE ADAPTER 1 EACH in D5W 250 ML IV SCH ×2 (05:38→19:05)
[2016-12-25 05:52] LABS: MEAN CORPUSCULAR HEMOGLOBIN 27.1 pg (27.0-33.0); MEAN CORPUSCULAR HGB CONC 33.3 g/dl (32.0-36.5); MEAN CORPUSCULAR VOLUME 81.4 fl (80.0-96.0); PLATELET COUNT, AUTOMATED 220 10^3/uL (150-450); RED CELL DISTRIBUTION WIDTH 16.1 % (11.5-14.5); WHITE BLOOD COUNT 13.6 10^3/uL (4.0-10.0)
[2016-12-25 05:54] LABS: POSITIVE MORPH POS FLAG
[2016-12-25 05:55] LABS: POS COUNT POS FLAG
[2016-12-25 05:57] LABS: ADD MANUAL DIFFER YES; DIFF SLIDE NUMBER 3
--- NOTE | 2016-12-25 06:22 | IPN ---
DATE OF VISIT: 12/23/2016 The patient was seen at 05:00 p.m. she had a fever of 101.8 at noon. The patient was complaining of fatigue. No headache. No neck stiffness. She wanted to go to [place] to be with a friend who was in the hospital and had the same condition. She denied any urinary symptoms. She has low back pain. LABORATORY DATA: White count is 11, hemoglobin 10.5, hematocrit 32.5, platelets 203. Sodium 136, potassium 3.4, chloride 100, bicarb 30, BUN 14, creatinine 0.65, glucose 87, calcium 8.5, AST 16, ALT 29, alkaline phosphatase 43, total protein 5.20, albumin 2.6. Cerebral spinal fluid (CSF) from 12/20 had few white cells, no organisms seen. No growth aerobically and CSF multiplex panel was negative as well. Fungal smear and culture are pending. Stool Hemoccult was negative. Dr. 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 The fluid was not cloudy. The cell count on that fluid had 718 white cells, two red cells, five monos and 95% neutrophils, glucose was low at 15 and total protein was 82. The culture is pending. PHYSICAL EXAMINATION: VITAL SIGNS: On physical exam temperature max (T-max) was 101.8, currently afebrile. HEART: Normal S1-S2 with no murmurs. LUNGS: Lungs are clear. No wheezes, rales or rhonchi. ABDOMEN: Soft, nontender. EXTREMITIES: No edema. NEUROLOGIC: The left scalp area has fluid underneath the incision line which has increased in size. The patient is confused but oriented to person and place but not to time. She has no neck stiffness. IMPRESSION: 1. Fever and what seems to me as nosocomial meningitis. Cerebral spinal fluid (CSF) findings with predominant neutrophils, blood culture are negative. The patient had been on Rocephin. Dr. Jordan feels that the CSF findings could be related to surgery and brain mass. Culture from subcutaneous collection from communicating hydrocephalus are pending. 2. Glioblastoma multiforme. Waiting for chemotherapy and radiation therapy once stable. 3. Urinary tract infection (UTI) with Escherichia coli versus asymptomatic bacteria. Her symptoms were low back pain and the patient is currently covered with meropenem. PLAN: Continue vancomycin, meropenem for nosocomial meningitis. continue to monitor. Will review results of culture once available. The case discussed with Dr. Jordan.
[2016-12-25 06:43] LABS: ALBUMIN 2.2 GM/DL (3.2-5.2); ALBUMIN/GLOBULIN RATIO 0.81 (1.00-1.93); ALKALINE PHOSPHATASE 43 U/L (45-117); ALT/SGPT 37 U/L (12-78); ANION GAP 9 MEQ/L (8-16); ANISOCYTOSIS 1+; AST/SGOT 29 U/L (7-37); BANDS 1 % (< 11); BILIRUBIN,TOTAL 0.4 MG/DL (0.2-1.0); BLOOD UREA NITROGEN 11 MG/DL (7-18); CALCIUM LEVEL 8.2 MG/DL (8.8-10.2); CARBON DIOXIDE LEVEL 23 MEQ/L (21-32); CHLORIDE LEVEL 104 MEQ/L (98-107); CHOLESTEROL LEVEL 107 MG/DL (< 200); CREATININE FOR GFR 0.43 MG/DL (0.55-1.02); EOSINOPHILS 1 % (0-5); GLOMERULAR FILTRATION RATE > 60.0 (>39); GLUCOSE, FASTING 136 MG/DL (83-110); PHOSPHORUS LEVEL 2.4 MG/DL (2.5-4.9); POTASSIUM SERUM 3.1 MEQ/L (3.5-5.1); SODIUM LEVEL 136 MEQ/L (136-145); TOTAL PROTEIN 4.9 GM/DL (6.4-8.2); TRIGLYCERIDES LEVEL 230 MG/DL (<150)
--- NOTE | 2016-12-25 07:06 | RO ---
DATE OF PROCEDURE: 12/24/2016 PREPROCEDURE DIAGNOSIS: Hypovolemia. POSTPROCEDURE DIAGNOSIS: Hypovolemia. PROCEDURE: Right subclavian CVP placement. SURGEON: Dr. Manolo Bates. WEIGHT LOSS CONSULTANT: ANESTHESIA: ESTIMATED BLOOD LOSS: The patient was seen in the intensive care unit, hypovolemic, hypotensive, critically ill. The skin overlying the right subclavian vein was prepped with Chloraprep, draped in sterile fashion. A 25-gauge needle was used to raise a skin wheal of 1% lidocaine. Thereafter a 17-gauge introducer needle was placed in through the skin and into the right subclavian vein. Free return of venous blood was obtaining. A vascular tip guidewire was advanced. A small incision made adjacent to the guidewire and a triple lumen catheter placed over the guidewire to a distance of 17-18 cm. Catheter was sewn in place and a sterile dressing was applied. A postprocedural chest x-ray confirms adequate placement. There were no complications.
[2016-12-25] MEDS: ADVAIR HFA 115/21MCG INHALER INH SCH ×2 (07:30→19:36)
[2016-12-25] MEDS: BISOPROLOL FUMARATE 5 MG TAB PO SCH ×2 (09:00→20:50)
[2016-12-25] MEDS: IRBESARTAN 150 MG TAB PO SCH ×2 (09:00→20:50)
[2016-12-25] MEDS: MIRALAX *UNIT DOSE* 17GM PACKET PO SCH (09:00)
[2016-12-25] MEDS: LORATADINE 10 MG TAB PO SCH (09:08)
[2016-12-25] MEDS: CYANOCOBALAMIN 500 MCG TAB PO SCH (09:10)
[2016-12-25] MEDS: FERROUS GLUCONATE 324 MG TAB PO SCH (09:11)
[2016-12-25] MEDS: CALCIUM/VITAMIN D 500 MG TAB PO SCH ×2 (09:11→21:51)
[2016-12-25] MEDS: levETIRAcetam 250MG TABLET (KEPPRA) PO SCH ×2 (09:13→21:51)
[2016-12-25] MEDS: PANTOPRAZOLE 40MG TAB (PROTONIX) PO SCH (09:19)
[2016-12-25] MEDS: CLOTRIMAZOLE 10 MG TROCHE PO SCH ×4 (09:20→21:51)
[2016-12-25] MEDS: NYSTATIN 100,000 UNITS/GM TOPICAL PWD 15 GM TOP SCH ×2 (12:05→21:52)
[2016-12-25] MEDS ORDERED: KCL 10MEQ IN 100ML SWI (KRUN) 10 MEQ in APPROPRIATE DILUENT 1 EA IV SCH ×4 (14:00→18:00)
[2016-12-25] MEDS ORDERED: KCL 10MEQ IN 100ML SWI (KRUN) 10 MEQ in APPROPRIATE DILUENT 1 EA IV ONE ×2 (14:00)
[2016-12-25] MEDS: POTASSIUM CHLORIDE 10 MEQ SR TABLET PO SCH ×2 (14:08→16:03)
--- NOTE | 2016-12-25 16:01 | IPNPDOC ---
Subjective Date Seen The patient was seen on 12/25/16. Subjective Chief Complaint/HPI The patient is a 76-year-old female admitted with a reason for visit of Brain Mass. Events since last encounter Patient developed hypotension overnight which required initiation of norepinephrine at approximately 1 AM this morning. She states today that she is doing okay. Constitutional: Denies: Chills, Fever Pulmonary: Denies: Dyspnea Cardiovascular: Denies: Chest Pain Objective Physical Examination General Exam: Positive: Other (somnolent but arousable) Chest Exam: Positive: Clear to auscultation, Normal air movement, Negative: Rales, Rhonchi, Wheezing Heart Exam: Positive: Rate Normal, Regular Rhythm, Normal S1, Normal S2, Negative: Gallops, Murmurs, Rubs Abdomen Exam: Positive: Normal bowel sounds, Soft, Negative: Tenderness, Hepatospenomegaly, Mass Extremity Exam: Positive: Other (bilateral lower extremity mottling) Assessment /Plan Problems (1) Septic shock Status: Acute Problem Text: 12/25: Patient required initiation of norepinephrine overnight. Blood pressure stable on norepinephrine. A discussion was had with the family regarding her current situation, they were made aware of her recent deterioration. She will remain a full code at this time, family will discuss her further care amongst themselves. 12/24: Developed septic shock today, T-max overnight of 103.4, hypotension with blood pressure as low as 76/42. Patient was given a 30 mL per KG fluid bolus. Patient was transferred to ICU and intensive care was consulted. (2) Meningitis Status: Acute Response to Treatment: Stable, Improving Discussed With: Nurse, Patient Problem Specific Plan: Consult Specialist, Monitor Clinically, Repeat Labs Problem Text: 12/25: CSF PCR negative, repeat CSF Gram stain and culture was negative, anaerobic culture negative, blood culture 1 no growth after 24 hours 12/24: Patient had drain of scalp swelling yesterday which was consistent CSF, showing 718 white blood cells, 95% PMNs, glucose of 15, total protein of 82. She is concurrently being managed by infectious disease, she will continue on vancomycin and meropenem. 12/23: Pt with Nosocomial meningitis, she is being followed by ID. She has had LP with pleocytosis and neutrophils, her T protein is elevated. her cultures have been Neg but she had received Rocephin prior to LP being performed. Vanco/ Meropenam dosing per ID. (3) Glioblastoma multiforme Status: Chronic Problem Text: 11/24/16 sp Stent-based frameless stereotactic left posterior temporal-parietal craniotomy with microsurgical resection of large mass, cranioplasty, and marked brain edema and swelling treated with the left lateral ventriculostomy for Left temporal-parietal GBM with brain swelling by Dr. Jordan (4) Diastolic congestive heart failure Permanent Comment: 12/22/16: Echocardiogram showed hyperdynamic left ventricular systolic function, LVEF 75%, atrial flutter. Moderate elevation of pulmonary artery systolic pressure. Mild aortic valve sclerosis, mild aortic regurgitation. Negative for mitral regurgitation. Mild left atrial dilation Last Edited By: Alexus Herman PA-C on Dec 23, 2016 10:09 Status: Chronic Problem Text: 12/23 appears compensated. 12/21 BNP 1541 c mild decompensation-held IVF and amlo 2.5 BID-repeat TTE (5) Fever Status: Acute Problem Text: 12/25: MAXIMUM TEMPERATURE yesterday 100.8, afebrile since yesterday at 2300 12/24: Fever recurred, MAXIMUM TEMPERATURE overnight of 103.4 12/23 afebrile since admission 12/22: Patient has been afebrile, MAXIMUM TEMPERATURE 98.7. She will continue on Vanco and meropenem as per infectious disease 12/21 Tm 99.8, WBC stable at 10.6 D1 vanco/shamar (D3 ceftriaxone 2 gm-last dose 12/21) 12/20 LP done 2 persistent fluid collection at craniotomy site, MS change and fever to 100.4: GS -, CX P, 954 WBC (76% PMN), 111 prot, 50 glc (no ho MRSA)- therefore, dw Anna and changed to vanco/shamar (unknown PCN allergy, but tolerated ceftriaxone) 12/20 LA 1.2 (12/19 3.5!) (6) Hypokalemia Problem Text: 12/25: Potassium of 3.1 today. Orders placed for K run 1, 40 meqs of oral KCl 2 doses. Repeat BMP tomorrow. Continue to monitor (7) Seizure disorder Status: Chronic Problem Text: 12/25: CSF PCR negative, repeat CSF Gram stain and culture was negative, anaerobic culture negative, blood culture 1 no growth after 24 hours 11/13: CSF culture did not show any organisms, CSF PCR still pending 12/21/2016: LP completed a 12/20/2016. Patient has some soreness in the back around puncture site. CSF culture pending. 2 focus 2 brain tumor resection 12/[address] head c stable STS/fluid collection seen on 12/18 CT-case dw Dr. Jordan who agrees favors fluid is 2 to necrotic tissue, but given fever/MS change, agrees c LP (as did Dr. Castillo)-case dw c Dr. Arturo Foster who wanted clearance from [facility] 12/19 Dr. Herrera increased leve to 1000 BID given sz episode-partially 2 UTI/hypoNa /? fluid collection 12/19 EEG This EEG in awake, drowsy states, stage 1 and 2 sleep is abnormal due to presence of left temporal intermittent rhythmic delta activity/temporal intermittent rhythmic delta activity (TIRDA) with separate to left central head region consistent with focal cortical structural or functional abnormality with epileptic potential. No clinical or electrographic seizures were recorded. Clinical correlation is recommended. DD: KERRI HERRERA MD 12/20/16 0658 12/18 CT head The patient is status post resection of a left temporal lobe tumor. There is postoperative change in the posterior left temporal lobe with decreased mass effect compared to the previous study. There is increased soft tissue swelling and fluid overlying the craniotomy site. (8) Anemia Status: Chronic Problem Specific Plan: Monitor Clinically Problem Text: 12/25: Hemoglobin stable at 10.5 12/23 - No labs ordered, will obtain. Hgb had trended from 10.8 12/21 to 9.7 12/21/2016: Hemoglobin improving today, 10.8. caution on chronic po steroid (on panto 40 QD for px) 12/20 hgb down to 9.4 (10.2, 11.2)-check HO baseline hgb 12s (12/09 wt 69, 12/20 79) On Supplemental B12 and Iron. 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 Patient was set up for biopsy of the nodule to rule out primary lesion. The nodule could not be biopsied by interventional radiology secondary to size. Dr. Morales noted that the lesion was unlikely a primary metastatic lesion. Patient proceeded to have a biopsy of her brain mass which resulted in glioblastoma. Lung nodule will need to be followed as outpatient. 11/24/2016: I reconfirmed this assessment with Dr. 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 (bindery technician) 11/19/16: Per Interventional Rad: most likely not a primary. Proceed with brain mass bx and pathology prior to lung nodule eval. 11/17/2016: Pulmonology, informal consult, advised against bronchoscopy. Recommends interventional to see if can get to nodule. Dr. Jordan is requesting that we strongly consider working up this lung nodule while she is in the hospital. He has a strong clinical suspicion that the brain lesion is metastatic. Additionally if she has a primary lung cancer it may change his recommendation to do an excisional bx of the brain lesion which almost assuredly leave her with some weakness and speech deficits. Tomorrow we should contact IR and/or Pulm to see whether CT guided bx or navigational bronchoscopy with bx is the best way to get a sample of this lesion. ------ CT Chest: 14 mm nodule in the anterior segment of the right lower lobe, not present on the comparison study. (12) Brain compression Status: Acute Response to Treatment: Controlled Problem Specific Plan: Monitor Clinically Problem Text: Dr. Jordan, brain edema and swelling treated with the left lateral ventriculostomy on 11/24/16. (13) HTN (hypertension) Status: Chronic Problem Specific Plan: Monitor Clinically Problem Text: BP is well controlled today. Continue current regimen, monitor. (14) CAD (coronary artery disease) Status: Chronic Problem Specific Plan: Monitor Clinically Problem Text: No active symptoms (15) COPD (chronic obstructive pulmonary disease) Status: Chronic Problem Specific Plan: Monitor Clinically Problem Text: Stable (16) Hemorrhoids Status: Chronic Problem Text: 12/22: Order placed for topical Preparation H (17) Physical deconditioning Problem Text: 12/22: Order is renewed for PT and OT Plan/VTE VTE Prophylaxis Ordered?: Yes (TEDs and SCDs) VTE Exclusion Pharmacological: Bleeding Risk (intracranial procedure) Plan Therapy: PT, OT Anticipated Discharge: Home With Services (based on therapy's recommendation) VS, I&O, 24H, Fishbone Vital Signs/I&O Vital Signs Date Time Temp Pulse Resp B/P (MAP) Pulse Ox O2 Delivery O2 Flow Rate FiO2 12/25/16 14:00 93 20 110/59 (76) 96 Nasal Cannula 1.0 12/25/16 12:00 98.0 I&O- Last 24 Hours up to 6 AM 12/26/16 06:00 Intake Total 660 ml Balance 660 ml Laboratory Data 24H LABS Laboratory Tests 2 12/24/16 16:18: Urine Appearance CLEAR, Urine Color YELLOW, Urine pH 7.0, Urine Specific Manly 1.010, Urine Protein 1+H, Urine Glucose (UA) 1+H, Urine Ketones TRACEH, Urine Urobilinogen 0.2, Urine Bilirubin NEGATIVE, Urine Leukocyte Esterase NEGATIVE, Urine Blood 1+H, Urine Nitrite NEGATIVE, Urine WBC (Auto) 4H, Urine RBC (Auto) 4H, Urine Hyaline Casts (Auto) 0, Urine Bacteria (Auto) NEGATIVE, Urine Squamous Epithelial Cells 0, Urine Mucus (Auto) SMALL, Urine Sperm (Auto) , Urine Random Osmolality 296L, Osmolality 282 12/25/16 05:24: Immature Granulocyte % (Auto) , Nucleated Red Blood Cells % (auto) 0.0, Neutrophils 81H, Band Neutrophils 1, Lymphocytes (Manual) 6L, Monocytes (Manual ) 11H, Eosinophils (Manual) 1, Platelet Estimate NORMAL, Anisocytosis 1+, Anion Gap 9, Glomerular Filtration Rate > 60.0, Blood Urea Nitrogen 11, Creatinine 0.43L, Sodium Level 136, Potassium Level 3.1L, Chloride Level 104, Carbon Dioxide Level 23, Calcium Level 8.2L, Phosphorus Level 2.4L, Aspartate Amino Transf (AST/SGOT) 29, Alanine Aminotransferase (ALT/SGPT) 37, Lactate Dehydrogenase 243, Total Creatine Kinase 53, Alkaline Phosphatase 43L, Total Bilirubin 0.4, Triglycerides Level 230H, Cholesterol Level 107, Total Protein 4.9L, Albumin 2.2L, Albumin/Globulin Ratio 0.81L CBC/BMP Laboratory Tests 12/25/16 05:24 Red Blood Count 3.87 L, Mean Corpuscular Volume 81.4, Mean Corpuscular Hemoglobin 27.1, Mean Corpuscular Hemoglobin Concent 33.3, Red Cell Distribution Width 16.1 H, Calcium Level 8.2 L, Phosphorus Level 2.4 L, Aspartate Amino Transf (AST/SGOT) 29, Alanine Aminotransferase (ALT/SGPT) 37, Lactate Dehydrogenase 243, Total Creatine Kinase 53, Alkaline Phosphatase 43 L, Total Bilirubin 0.4, Triglycerides Level 230 H, Cholesterol Level 107, Total Protein 4.9 L, Albumin 2.2 L Microbiology Microbiology 12/24/16 Blood Culture - Preliminary, Resulted No growth after 24 hours . All specim... 12/19/16 Blood Culture - Final, Complete NO GROWTH AFTER 5 DAYS 12/23/16 Gram Stain - Final, Complete 12/23/16 CSF Culture - Final, Complete 12/20/16 Fungal Smear, Received Pending 12/20/16 Fungal Culture, Received Pending 12/20/16 Gram Stain - Final, Complete 12/20/16 CSF Culture - Final, Complete 12/20/16 - Final, Complete 12/20/16 Stool Occult Blood (HECTOR) - Final, Complete 12/18/16 Urine Culture - Final, Complete Escherichia Coli 12/23/16 Anaerobic Culture - Final, Complete GME ATTESTATION GME ATTESTATION My faculty preceptor for this patient encounter was physically present during the encounter and was fully available. All aspects of the patient interview, examination, medical decision making process, and medical care plan development were reviewed and approved by the faculty preceptor. The faculty preceptor is aware and concurs with the plan as stated in the body of this note and will attest to such by his/her cosignature. EMMA DUFFY DO Dec 25, 2016 16:01
--- NOTE | 2016-12-25 17:11 | IPN ---
DATE: 12/25/2016 Savanna decompensated yesterday. She was more lethargic, had a fever of 103, was hypotensive and therefore was transferred to the ICU. She was started on Levophed. Today she is doing much better. Her antibiotics have not been changed. She continues on vancomycin 1 gram every 12 and meropenem, which she has received since 12/21. Today she is afebrile. Temperature is 98.7, pulse 99, respirations 24, blood pressure 100/53, O2 sat 96% on 1 liter nasal cannula. Heart: Normal S1, S2. No murmurs. Lungs are clear. Abdomen is soft, nontender. Extremities: No edema. She has no neck stiffness. Scalp sutures were removed. There is no area of erythema. 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 CSF had 954 white cells with 76 white cells, 76 PMNs and fluid from underneath the scalp incision had 781 white cells and 95% PMNs with a total protein of 82. CSF culture on 12/20 was negative. CSF fluid from the subcutaneous collection also was negative. Anaerobic culture was negative as well. Blood cultures are negative. IMPRESSION: 1. Urinary tract infection with culture positive for E-coli. This was not the reason for current septic shock as the patient has been on appropriate coverage for at least 1 week for the urinary tract infection. Initially with IV Rocephin since 12/19/2009 then with meropenem. 2. Abnormal CSF values consistent with bacterial meningitis, probably nosocomial, post surgical but cultures have all remained negative as well. The patient on vancomycin and meropenem for a total of 2 weeks. 3. Glioblastoma, waiting for radiation and chemotherapy that Dr. Amezquita has attempted three times to try to schedule her radiation, but she has had many different issues to deal with before that. PLAN: Continue vancomycin, IV meropenem for total of 2 weeks. Suggest MRI brain with gadolinium to R/O brain abscess as cause of recurrent fever and fluctuating mental status MTDD
[2016-12-25] MEDS: ACETAMINOPHEN 500 MG TAB PO PRN ×2 (17:12→18:30)
[2016-12-25] MEDS: OLANZapine 2.5MG TABLET PO SCH (21:51)
[2016-12-25] MEDS: ROSUVASTATIN 10 MG TAB (CRESTOR) PO SCH (21:51)
[2016-12-26] VITALS (14 sets, daily range): BP systolic 89–124; BP diastolic 50–75; O2SAT 97
[2016-12-26] MEDS: MEROPENEM INJ 2 GM in NS 100 ML IV SCH ×3 (02:31→21:08)
[2016-12-26] MEDS: SLF 3 ML SYR IV SCH ×3 (05:53→21:11)
[2016-12-26 05:54] LABS: MEAN CORPUSCULAR HEMOGLOBIN 27.3 pg (27.0-33.0); MEAN CORPUSCULAR HGB CONC 33.4 g/dl (32.0-36.5); MEAN CORPUSCULAR VOLUME 81.8 fl (80.0-96.0); PLATELET COUNT, AUTOMATED 193 10^3/uL (150-450); RED CELL DISTRIBUTION WIDTH 16.1 % (11.5-14.5); WHITE BLOOD COUNT 7.6 10^3/uL (4.0-10.0)
[2016-12-26] MEDS: VANCOMYCIN HCL 1,000 MG, VIAL MATE ADAPTER 1 EACH in D5W 250 ML IV SCH ×2 (05:54→19:46)
[2016-12-26 06:02] LABS: ADD MANUAL DIFFER YES; DIFF SLIDE NUMBER 25; POS COUNT POS FLAG; POSITIVE MORPH POS FLAG
[2016-12-26 06:19] LABS: ALBUMIN 2.1 GM/DL (3.2-5.2); ALBUMIN/GLOBULIN RATIO 0.75 (1.00-1.93); ALKALINE PHOSPHATASE 47 U/L (45-117); ALT/SGPT 42 U/L (12-78); ANION GAP 7 MEQ/L (8-16); AST/SGOT 28 U/L (7-37); BILIRUBIN,TOTAL 0.4 MG/DL (0.2-1.0); BLOOD UREA NITROGEN 9 MG/DL (7-18); CALCIUM LEVEL 8.6 MG/DL (8.8-10.2); CARBON DIOXIDE LEVEL 26 MEQ/L (21-32); CHLORIDE LEVEL 104 MEQ/L (98-107); CREATININE FOR GFR 0.39 MG/DL (0.55-1.02); GLOMERULAR FILTRATION RATE > 60.0 (>39); GLUCOSE, FASTING 92 MG/DL (83-110); POTASSIUM SERUM 4.1 MEQ/L (3.5-5.1); SODIUM LEVEL 137 MEQ/L (136-145); TOTAL PROTEIN 4.9 GM/DL (6.4-8.2)
[2016-12-26 07:05] LABS: BASOPHILS 1 % (0-4)
[2016-12-26 07:06] LABS: ANISOCYTOSIS 1+
[2016-12-26] MEDS: ADVAIR HFA 115/21MCG INHALER INH SCH ×2 (07:39→19:23)
--- NOTE | 2016-12-26 08:38 | IPN ---
DATE: 12/26/2016 Savanna is seen in ICU. She was transferred with sepsis, hypotension from nosocomial meningitis. I appreciate Dr. Castillo's input. The case was also discussed with Dr. Jordan yesterday. I have reviewed Dr. Castillo's note and I am in agreement. I do not think that her septic shock was from E. coli urinary tract infection. She had adequate coverage for that for a week. Her CSF strongly suggested meningitis that was culture negative as she was on antibiotics at the time. She is becoming slightly more alert, still not back to her baseline. She denies headache, fever and chills. PHYSICAL EXAMINATION: Afebrile. Vital signs stable. Systolic pressure in the 1-teens. Lungs clear. Heart regular rhythm. Abdomen soft, nontender. Nonfocal neurologic exam. LABORATORIES: CBC is unremarkable. Chem profile stable. Albumin is down to 2.1. IMPRESSION/PLAN: 1. Nosocomial meningitis with septic shock. Plan per Dr. Castillo, vancomycin and meropenem for two weeks total. 2. Urinary tract infection. This was adequately treated with her IV Rocephin. 3. Glioblastoma. Once she is over her acute problems, she could be seen by radiation oncology. 4. Diastolic congestive heart failure (CHF), well compensated on exam. 5. Seizure disorder. Continue current anticonvulsants. 6. History of hypertension. Her pressures have been soft. I am stopping her Avapro. We have hold parameters on her bisoprolol. 7. Hyperlipidemia. Continue her current dose of rosuvastatin 20 mg at bedtime. 8. History of asthma. Well controlled with her current dose of Advair. At this point, I think we can transfer her out to the floor. We will start some Ensure for nutritional support.
[2016-12-26] MEDS: MIRALAX *UNIT DOSE* 17GM PACKET PO SCH (09:00)
[2016-12-26] MEDS: NYSTATIN 100,000 UNITS/GM TOPICAL PWD 15 GM TOP SCH ×2 (09:22→21:11)
[2016-12-26] MEDS: CLOTRIMAZOLE 10 MG TROCHE PO SCH ×4 (09:22→21:10)
[2016-12-26] MEDS: CYANOCOBALAMIN 500 MCG TAB PO SCH (09:23)
[2016-12-26] MEDS: LORATADINE 10 MG TAB PO SCH (09:23)
[2016-12-26] MEDS: FERROUS GLUCONATE 324 MG TAB PO SCH (09:23)
[2016-12-26] MEDS: CALCIUM/VITAMIN D 500 MG TAB PO SCH ×2 (09:23→21:11)
[2016-12-26] MEDS: levETIRAcetam 250MG TABLET (KEPPRA) PO SCH ×2 (09:23→21:10)
[2016-12-26] MEDS: PANTOPRAZOLE 40MG TAB (PROTONIX) PO SCH (09:23)
[2016-12-26] MEDS: BISOPROLOL FUMARATE 5 MG TAB PO SCH ×2 (09:31→21:00)
--- NOTE | 2016-12-26 16:40 | IPNPDOC ---
Text Note Date of Service The patient was seen on 12/26/16. NOTE Infectious Disease Progress Note Subjective: Ms. Santos is in a good mood this morning. She is awake alert and oriented 3. Her only complaint today is that she was unable to find her dentures this morning, however we saw her once again in the afternoon in the PCU and she has subsequently found her dentures and was in an excellent mood. She is not complaining of any headache, fevers, or other constitutional symptoms. The remainder of her review of systems is negative. Objective: General: Awake, alert, oriented 3. HEENT: Incision site appears to be healing well, she does continue to have a subcutaneous seroma of approximately 4-5 cm in diameter. There is no erythema. Keven have been removed. The area is nontender. Respiratory: Clear to auscultation bilaterally with no wheezes, rales, or rhonchi. Cardiovascular: Regular rate and rhythm, with no rubs, gallops, or murmur. Abdomen: Soft, nontender, nondistended, no hepatosplenomegaly appreciated. Bowel sounds present. Extremities: 2+ pulses in the radial and dorsalis pedis bilaterally. No evidence of clubbing or cyanosis. Neuro: She is able to move all 4 extremities, she has 5 out of 5 strength in both the upper and lower extremities bilaterally. She has no focal sensation loss either. Assessment/Plan: 1. Suspected bacterial meningitis. Based on most recent CSF values a nosocomial bacterial meningitis still remains on the differential. An MRI with and without contrast has been ordered to evaluate for brain abscess. She does appear to be improving clinically, we will continue with vancomycin and meropenem for a total of 2 weeks. 2. Escherichia coli UTI. As she has been treated with a more than effective antibiotics during her hospitalization, this is now resolved. 3. Glioblastoma. Once she is more stable than it appears that the plan will be to have her treated with radiation and chemotherapy as an outpatient. My preceptor for this patient encounter was physically present in the building during the encounter and was fully available. As needed, all aspects of the patient interview, examination, medical decision making process, and medical care plan development were reviewed and approved by the preceptor. Preceptor is aware and concurs with the plan as stated in the body of this note and will attest to such by his/her cosignature. VS,Fishbone, I+O VS, Fishbone, I+O Laboratory Tests 12/26/16 05:44 Red Blood Count 3.73 L, Mean Corpuscular Volume 81.8, Mean Corpuscular Hemoglobin 27.3, Mean Corpuscular Hemoglobin Concent 33.4, Red Cell Distribution Width 16.1 H, Calcium Level 8.6 L, Aspartate Amino Transf (AST/SGOT ) 28, Alanine Aminotransferase (ALT/SGPT) 42, Alkaline Phosphatase 47, Total Bilirubin 0.4, Total Protein 4.9 L, Albumin 2.1 L Vital Signs Date Time Temp Pulse Resp B/P (MAP) Pulse Ox O2 Delivery O2 Flow Rate FiO2 12/26/16 13:45 98.3 94 17 90/50 (63) 95 Room Air 12/26/16 02:01 1.0 I&O- Last 24 Hours up to 6 AM 12/27/16 06:00 Intake Total 670 ml Output Total 650 ml Balance 20 ml JUSTIN CALLOWAY DO Dec 26, 2016 16:40
[2016-12-26] MEDS ORDERED: PROHANCE 279.3MG/ML 15ML VIAL (A9576) As Ordered ONE (18:35)
[2016-12-26] MEDS: OLANZapine 2.5MG TABLET PO SCH (21:10)
[2016-12-26] MEDS: ROSUVASTATIN 10 MG TAB (CRESTOR) PO SCH (21:10)
[2016-12-27] VITALS (9 sets, daily range): BP systolic 82–123; BP diastolic 50–64
[2016-12-27] MEDS: MEROPENEM INJ 2 GM in NS 100 ML IV SCH ×3 (02:55→17:08)
[2016-12-27 05:17] LABS: MEAN CORPUSCULAR HEMOGLOBIN 26.6 pg (27.0-33.0); MEAN CORPUSCULAR VOLUME 80.6 fl (80.0-96.0); PLATELET COUNT, AUTOMATED 212 10^3/uL (150-450); RED CELL DISTRIBUTION WIDTH 15.9 % (11.5-14.5); WHITE BLOOD COUNT 6.4 10^3/uL (4.0-10.0)
[2016-12-27] MEDS: SLF 3 ML SYR IV SCH ×3 (05:20→20:36)
[2016-12-27] MEDS: VANCOMYCIN HCL 1,000 MG, VIAL MATE ADAPTER 1 EACH in D5W 250 ML IV SCH ×2 (05:20→18:06)
[2016-12-27 05:24] LABS: ADD MANUAL DIFFER YES; DIFF SLIDE NUMBER 18; POS COUNT POS FLAG; POSITIVE MORPH POS FLAG
[2016-12-27 05:36] LABS: ALBUMIN/GLOBULIN RATIO 0.63 (1.00-1.93); ALKALINE PHOSPHATASE 49 U/L (45-117); ALT/SGPT 44 U/L (12-78); ANION GAP 8 MEQ/L (8-16); AST/SGOT 28 U/L (7-37); BILIRUBIN,TOTAL 0.4 MG/DL (0.2-1.0); BLOOD UREA NITROGEN 8 MG/DL (7-18); CALCIUM LEVEL 9.1 MG/DL (8.8-10.2); CARBON DIOXIDE LEVEL 24 MEQ/L (21-32); CHLORIDE LEVEL 104 MEQ/L (98-107); CREATININE FOR GFR 0.41 MG/DL (0.55-1.02); GLOMERULAR FILTRATION RATE > 60.0 (>39); GLUCOSE, FASTING 90 MG/DL (83-110); POTASSIUM SERUM 3.4 MEQ/L (3.5-5.1); SODIUM LEVEL 136 MEQ/L (136-145); TOTAL PROTEIN 5.2 GM/DL (6.4-8.2)
[2016-12-27 07:12] LABS: ANISOCYTOSIS 1+
[2016-12-27] MEDS: ADVAIR HFA 115/21MCG INHALER INH SCH ×2 (07:21→21:00)
[2016-12-27] MEDS: CYANOCOBALAMIN 500 MCG TAB PO SCH (08:48)
[2016-12-27] MEDS: CLOTRIMAZOLE 10 MG TROCHE PO SCH ×4 (08:48→20:36)
[2016-12-27] MEDS: levETIRAcetam 250MG TABLET (KEPPRA) PO SCH ×2 (08:48→20:36)
[2016-12-27] MEDS: CALCIUM/VITAMIN D 500 MG TAB PO SCH ×2 (08:49→20:36)
[2016-12-27] MEDS: LORATADINE 10 MG TAB PO SCH (08:49)
[2016-12-27] MEDS: PANTOPRAZOLE 40MG TAB (PROTONIX) PO SCH (08:49)
[2016-12-27] MEDS: MIRALAX *UNIT DOSE* 17GM PACKET PO SCH (08:49)
[2016-12-27] MEDS: FERROUS GLUCONATE 324 MG TAB PO SCH (08:49)
[2016-12-27] MEDS: BISOPROLOL FUMARATE 5 MG TAB PO SCH ×2 (08:50→21:00)
[2016-12-27] MEDS: NYSTATIN 100,000 UNITS/GM TOPICAL PWD 15 GM TOP SCH ×2 (08:51→20:40)
[2016-12-27] MEDS: POTASSIUM CHLORIDE 10% LIQ 20 MEQ/15 ML UDC PO SCH ×2 (10:23→13:55)
--- NOTE | 2016-12-27 11:25 | IPNPDOC ---
Subjective Date Seen The patient was seen on 12/27/16. Subjective Chief Complaint/HPI The patient is a 76-year-old female admitted with a reason for visit of Brain Mass. Events since last encounter Patient's primary concern today is of episodes of vomiting. She reports that her head is feeling okay today. She does not have any other concerns. Constitutional: Denies: Chills, Fever Pulmonary: Denies: Dyspnea Cardiovascular: Denies: Chest Pain Gastrointestinal: Reports: Vomiting Objective Physical Examination General Exam: Positive: No Acute Distress Chest Exam: Positive: Clear to auscultation, Normal air movement, Negative: Rales, Rhonchi, Wheezing Heart Exam: Positive: Rate Normal, Regular Rhythm, Normal S1, Normal S2, Negative: Gallops, Murmurs, Rubs Abdomen Exam: Positive: Normal bowel sounds, Soft, Negative: Tenderness, Hepatospenomegaly, Mass Extremity Exam: Positive: Tenderness RAD Interpretation STUDY: MRI brain: Read by radiology pending Assessment /Plan Problems (1) Septic shock Status: Acute Problem Text: 12/27: Resolved, patient stable in PCU off of pressors. Continue to monitor for recurrence. 12/25: Patient required initiation of norepinephrine overnight. Blood pressure stable on norepinephrine. A discussion was had with the family regarding her current situation, they were made aware of her recent deterioration. She will remain a full code at this time, family will discuss her further care amongst themselves. 12/24: Developed septic shock today, T-max overnight of 103.4, hypotension with blood pressure as low as 76/42. Patient was given a 30 mL per KG fluid bolus. Patient was transferred to ICU and intensive care was consulted. (2) Meningitis Status: Acute Response to Treatment: Stable, Improving Discussed With: Nurse, Patient Problem Specific Plan: Consult Specialist, Monitor Clinically, Repeat Labs Problem Text: 12/27: As per infectious disease patient will continue on Vanco and meropenem for a treatment duration of 2 weeks 12/25: CSF PCR negative, repeat CSF Gram stain and culture was negative, anaerobic culture negative, blood culture 1 no growth after 24 hours 12/24: Patient had drain of scalp swelling yesterday which was consistent CSF, showing 718 white blood cells, 95% PMNs, glucose of 15, total protein of 82. She is concurrently being managed by infectious disease, she will continue on vancomycin and meropenem. 12/23: Pt with Nosocomial meningitis, she is being followed by ID. She has had LP with pleocytosis and neutrophils, her T protein is elevated. her cultures have been Neg but she had received Rocephin prior to LP being performed. Vanco/ Meropenam dosing per ID. (3) Glioblastoma multiforme Status: Chronic Problem Text: 11/24/16 sp Stent-based frameless stereotactic left posterior temporal-parietal craniotomy with microsurgical resection of large mass, cranioplasty, and marked brain edema and swelling treated with the left lateral ventriculostomy for Left temporal-parietal GBM with brain swelling by Dr. Jordan (4) Diastolic congestive heart failure Permanent Comment: 12/22/16: Echocardiogram showed hyperdynamic left ventricular systolic function, LVEF 75%, atrial flutter. Moderate elevation of pulmonary artery systolic pressure. Mild aortic valve sclerosis, mild aortic regurgitation. Negative for mitral regurgitation. Mild left atrial dilation Last Edited By: Alexus Herman PA-C on Dec 23, 2016 10:09 Status: Chronic Problem Text: 12/23 appears compensated. 12/21 BNP 1541 c mild decompensation-held IVF and amlo 2.5 BID-repeat TTE (5) Fever Status: Acute Problem Text: 12/27: Afebrile since 12/24 12/25: MAXIMUM TEMPERATURE yesterday 100.8, afebrile since yesterday at 2300 12/24: Fever recurred, MAXIMUM TEMPERATURE overnight of 103.4 12/23 afebrile since admission 12/22: Patient has been afebrile, MAXIMUM TEMPERATURE 98.7. She will continue on Vanco and meropenem as per infectious disease 12/21 Tm 99.8, WBC stable at 10.6 D1 vanco/shamar (D3 ceftriaxone 2 gm-last dose 12/21) 12/20 LP done 2 persistent fluid collection at craniotomy site, MS change and fever to 100.4: GS -, CX P, 954 WBC (76% PMN), 111 prot, 50 glc (no ho MRSA)- therefore, dw Anna and changed to vanco/shamar (unknown PCN allergy, but tolerated ceftriaxone) 12/20 LA 1.2 (12/19 3.5!) (6) Hypokalemia Problem Text: 12/27: Potassium of 3.4 today, order placed for 40 meqs of oral KCl 2 doses 12/25: Potassium of 3.1 today. Orders placed for K run 1, 40 meqs of oral KCl 2 doses. Repeat BMP tomorrow. Continue to monitor (7) Seizure disorder Status: Chronic Problem Text: 12/25: CSF PCR negative, repeat CSF Gram stain and culture was negative, anaerobic culture negative, blood culture 1 no growth after 24 hours 12/22: CSF culture did not show any organisms, CSF PCR still pending 12/21/2016: LP completed a 12/20/2016. Patient has some soreness in the back around puncture site. CSF culture pending. 2 focus 2 brain tumor resection 12/[address] head c stable STS/fluid collection seen on 12/18 CT-case dw Dr. Jordan who agrees favors fluid is 2 to necrotic tissue, but given fever/MS change, agrees c LP (as did Dr. Castillo)-case dw c Dr. Arturo Foster who wanted clearance from [facility] 12/19 Dr. Herrera increased leve to 1000 BID given sz episode-partially 2 UTI/hypoNa /? fluid collection 12/19 EEG This EEG in awake, drowsy states, stage 1 and 2 sleep is abnormal due to presence of left temporal intermittent rhythmic delta activity/temporal intermittent rhythmic delta activity (TIRDA) with separate to left central head region consistent with focal cortical structural or functional abnormality with epileptic potential. No clinical or electrographic seizures were recorded. Clinical correlation is recommended. DD: KERRI HERRERA MD 12/20/16 0658 12/18 CT head The patient is status post resection of a left temporal lobe tumor. There is postoperative change in the posterior left temporal lobe with decreased mass effect compared to the previous study. There is increased soft tissue swelling and fluid overlying the craniotomy site. (8) Anemia Status: Chronic Problem Specific Plan: Monitor Clinically Problem Text: 12/27: Hemoglobin stable at 10.3 12/25: Hemoglobin stable at 10.5 12/23 - No labs ordered, will obtain. Hgb had trended from 10.8 12/21 to 9.7 12/21/2016: Hemoglobin improving today, 10.8. caution on chronic po steroid (on panto 40 QD for px) 12/20 hgb down to 9.4 (10.2, 11.2)-check HO baseline hgb 12s (12/09 wt 69, 12/20 79) On Supplemental B12 and Iron. 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 Patient was set up for biopsy of the nodule to rule out primary lesion. The nodule could not be biopsied by interventional radiology secondary to size. Dr. Morales noted that the lesion was unlikely a primary metastatic lesion. Patient proceeded to have a biopsy of her brain mass which resulted in glioblastoma. Lung nodule will need to be followed as outpatient. 11/24/2016: I reconfirmed this assessment with Dr. 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 Proceed with brain mass bx and pathology prior to lung nodule eval. 11/17/2016: Pulmonology, informal consult, advised against bronchoscopy. Recommends interventional to see if can get to nodule. Dr. Jordan is requesting that we strongly consider working up this lung nodule while she is in the hospital. He has a strong clinical suspicion that the brain lesion is metastatic. Additionally if she has a primary lung cancer it may change his recommendation to do an excisional bx of the brain lesion which almost assuredly leave her with some weakness and speech deficits. Tomorrow we should contact IR and/or Pulm to see whether CT guided bx or navigational bronchoscopy with bx is the best way to get a sample of this lesion. ------ CT Chest: 14 mm nodule in the anterior segment of the right lower lobe, not present on the comparison study. (12) Brain compression Status: Acute Response to Treatment: Controlled Problem Specific Plan: Monitor Clinically Problem Text: Dr. Jordan, brain edema and swelling treated with the left lateral ventriculostomy on 11/24/16. (13) HTN (hypertension) Status: Chronic Problem Specific Plan: Monitor Clinically Problem Text: BP is well controlled today. Continue current regimen, monitor. (14) CAD (coronary artery disease) Status: Chronic Problem Specific Plan: Monitor Clinically Problem Text: No active symptoms (15) COPD (chronic obstructive pulmonary disease) Status: Chronic Problem Specific Plan: Monitor Clinically Problem Text: Stable (16) Hemorrhoids Status: Chronic Problem Text: 12/22: Order placed for topical Preparation H (17) Physical deconditioning Problem Text: 12/22: Order is renewed for PT and OT Plan/VTE VTE Prophylaxis Ordered?: Yes (TEDs and SCDs) VTE Exclusion Pharmacological: Bleeding Risk (intracranial procedure) Plan Therapy: PT, OT Anticipated Discharge: Home With Services (based on therapy's recommendation) VS, I&O, 24H, Fishbone Vital Signs/I&O Vital Signs Date Time Temp Pulse Resp B/P (MAP) Pulse Ox O2 Delivery O2 Flow Rate FiO2 12/27/16 09:00 Room Air 12/27/16 08:50 101 108/56 12/27/16 08:00 97.0 20 95 12/26/16 02:01 1.0 I&O- Last 24 Hours up to 6 AM 12/28/16 06:00 Intake Total 120 ml Output Total 800 ml Balance -680 ml Laboratory Data 24H LABS Laboratory Tests 2 12/27/16 04:57: Immature Granulocyte % (Auto) , Nucleated Red Blood Cells % (auto) 0.0, Neutrophils 77H, Lymphocytes (Manual) 11L, Monocytes (Manual) 9H, Metamyelocytes 1H, Atypical Lymphocytes 2, Platelet Estimate NORMAL, Anisocytosis 1+, Anion Gap 8, Glomerular Filtration Rate > 60.0, Blood Urea Nitrogen 8, Creatinine 0.41L, Sodium Level 136, Potassium Level 3.4L, Chloride Level 104, Carbon Dioxide Level 24, Calcium Level 9.1, Aspartate Amino Transf ( AST/SGOT) 28, Alanine Aminotransferase (ALT/SGPT) 44, Alkaline Phosphatase 49, Total Bilirubin 0.4, Total Protein 5.2L, Albumin 2.0L, Albumin/Globulin Ratio 0.63L CBC/BMP Laboratory Tests 12/27/16 04:57 Red Blood Count 3.87 L, Mean Corpuscular Volume 80.6, Mean Corpuscular Hemoglobin 26.6 L, Mean Corpuscular Hemoglobin Concent 33.0, Red Cell Distribution Width 15.9 H, Calcium Level 9.1, Aspartate Amino Transf (AST/SGOT) 28, Alanine Aminotransferase (ALT/SGPT) 44, Alkaline Phosphatase 49, Total Bilirubin 0.4, Total Protein 5.2 L, Albumin 2.0 L Microbiology Microbiology 12/24/16 Blood Culture - Preliminary, Resulted No Growth after 72 hours. All specime... 12/19/16 Blood Culture - Final, Complete NO GROWTH AFTER 5 DAYS 12/23/16 Gram Stain - Final, Complete 12/23/16 CSF Culture - Final, Complete 12/20/16 Fungal Smear, Received Pending 12/20/16 Fungal Culture, Received Pending 12/20/16 Gram Stain - Final, Complete 12/20/16 CSF Culture - Final, Complete 12/20/16 - Final, Complete 12/20/16 Stool Occult Blood (HECTOR) - Final, Complete 12/18/16 Urine Culture - Final, Complete Escherichia Coli 12/23/16 Anaerobic Culture - Final, Complete GME ATTESTATION GME ATTESTATION My faculty preceptor for this patient encounter was physically present during the encounter and was fully available. All aspects of the patient interview, examination, medical decision making process, and medical care plan development were reviewed and approved by the faculty preceptor. The faculty preceptor is aware and concurs with the plan as stated in the body of this note and will attest to such by his/her cosignature. Attending Note Attending Note nausea controlled. MRI report pending still. per patient request,advance diet to Mech Soft LOUISOEEMMA MARTINEZ DO Dec 27, 2016 11:24 Bradford Coello MD Dec 27, 2016 16:32
[2016-12-27] MEDS: ACETAMINOPHEN 500 MG TAB PO PRN (17:07)
[2016-12-27 19:29] LABS: ABG BASE EXCESS -1.2 (-2.0-2.0); ABG HCO3 22.3 MEQ/L (22.0-26.0); ABG PARTIAL PRESSURE CO2 32.8 mmHg (35.0-45.0); ABG PARTIAL PRESSURE O2 75.3 mmHg (75.0-100.0); ABG STANDARD HCO3 23.5 MEQ/L (22.0-26.0); ABG TOTAL CO2 23.3 MEQ/L (23.0-31.0)
[2016-12-27] MEDS: ROSUVASTATIN 10 MG TAB (CRESTOR) PO SCH (20:36)
[2016-12-27] MEDS: OLANZapine 2.5MG TABLET PO SCH (20:36)
[2016-12-27] MEDS ORDERED: NS 500 ML IV ONE (22:15)
[2016-12-27] MEDS ORDERED: FUROSEMIDE 40 MG/4 ML VIAL (J1940) IV ONE (23:15)
[2016-12-28] VITALS (40 sets, daily range): BP systolic 68–127; BP diastolic 42–73
--- NOTE | 2016-12-28 00:50 | REPUSA ---
CLINICAL HISTORY: Shortness of breath. COMMENTS: The cardiac silhouette is enlarged. There is evidence for pulmonary venous congestion compatible with CHF. There is no definite radiographic evidence for a lung mass or consolidation. Bony structures appear normal. Unremarkable mediastinotomy wires. Right PICC line is in good position with its tip in the superior vena cava. IMPRESSION: 1. Enlarged cardiac silhouette. 2. Pulmonary venous congestion compatible with CHF. Thank you for your kind referral of this patient.
[2016-12-28] MEDS: MEROPENEM INJ 2 GM in NS 100 ML IV SCH ×2 (01:02→10:50)
[2016-12-28] MEDS ORDERED: NS 500 ML IV ONE (02:45)
--- NOTE | 2016-12-28 04:04 | IPNPDOC ---
Subjective Date Seen The patient was seen on 12/28/16. Subjective Chief Complaint/HPI The patient is a 76-year-old female admitted with a reason for visit of Brain Mass. Events since last encounter BP dropped around 2100 and she was given 500 ml saline. Pressure improved but she seemed to develop symptoms of CHF and CXR and 40 Lasix ordered. Subsequently BP dropped to systolic about 68 and she was moved to ICU, given another 500 ml NS with pressure improvement, now [address] Rosado consulted. With fluid sensitivity documented, Dr. Rosado suggested starting Levophed and titrating to MAP of 65. General: Denies: Chills ENT: Denies: Head Aches Cardiovascular: Denies: Chest Pain Gastrointestinal: Denies: Abdominal Pain Neurological: Reports: Other Symptoms (she is conversant and aware of surrounding.) Objective Physical Examination General Exam: Positive: No Acute Distress Chest Exam: Positive: Normal air movement, Rales (faint rales noted in right base especially.), Negative: Rhonchi, Wheezing Heart Exam: Positive: Rate Normal, Regular Rhythm, Normal S1, Normal S2, Negative: Gallops, Murmurs, Rubs Telemetry: Positive: Atrial fibrillation (afib vs flutter, but irregular so favor former), Tachycardia Abdomen Exam: Positive: Normal bowel sounds, Soft, Negative: Tenderness, Hepatospenomegaly, Mass Extremity Exam: Positive: Normal pulses, Negative: Edema Skin Exam: Positive: Other skin issue (mottled discoloration, more brownish than purple on lower extremities. ) Psych Exam: Positive: Mental status NL RAD Interpretation STUDY: CXR Rad Actions: Report Reviewed, Films Reviewed RAD Interpretation: Other Result Comments: (cardiomegaly with changes suggestive of CHF) Assessment /Plan Problems (1) Septic shock Status: Acute Problem Text: 12/28: BP down, respiratory difficulties with fluid challenge. Back to ICU with Levophed initiated. New lactic acid ordered stat and for 4 hours. Will check CVP as another indicator of volume status. Code status still Full Code. 12/27: Resolved, patient stable in PCU off of pressors. Continue to monitor for recurrence. 12/25: Patient required initiation of norepinephrine overnight. Blood pressure stable on norepinephrine. A discussion was had with the family regarding her current situation, they were made aware of her recent deterioration. She will remain a full code at this time, family will discuss her further care amongst themselves. 12/24: Developed septic shock today, T-max overnight of 103.4, hypotension with blood pressure as low as 76/42. Patient was given a 30 mL per KG fluid bolus. Patient was transferred to ICU and intensive care was consulted. (2) Meningitis Status: Acute Response to Treatment: Stable, Improving Discussed With: Nurse, Patient Problem Specific Plan: Consult Specialist, Monitor Clinically, Repeat Labs Problem Text: 12/27: As per infectious disease patient will continue on Vanco and meropenem for a treatment duration of 2 weeks 12/25: CSF PCR negative, repeat CSF Gram stain and culture was negative, anaerobic culture negative, blood culture 1 no growth after 24 hours 12/24: Patient had drain of scalp swelling yesterday which was consistent CSF, showing 718 white blood cells, 95% PMNs, glucose of 15, total protein of 82. She is concurrently being managed by infectious disease, she will continue on vancomycin and meropenem. 12/23: Pt with Nosocomial meningitis, she is being followed by ID. She has had LP with pleocytosis and neutrophils, her T protein is elevated. her cultures have been Neg but she had received Rocephin prior to LP being performed. Vanco/ Meropenam dosing per ID. (3) Glioblastoma multiforme Status: Chronic Problem Text: 11/24/16 sp Stent-based frameless stereotactic left posterior temporal-parietal craniotomy with microsurgical resection of large mass, cranioplasty, and marked brain edema and swelling treated with the left lateral ventriculostomy for Left temporal-parietal GBM with brain swelling by Dr. Jordan (4) Diastolic congestive heart failure Permanent Comment: 12/22/16: Echocardiogram showed hyperdynamic left ventricular systolic function, LVEF 75%, atrial flutter. Moderate elevation of pulmonary artery systolic pressure. Mild aortic valve sclerosis, mild aortic regurgitation. Negative for mitral regurgitation. Mild left atrial dilation Last Edited By: Alexus Herman PA-C on Dec 23, 2016 10:09 Status: Chronic Problem Text: 12/23 appears compensated. 12/21 BNP 1541 c mild decompensation-held IVF and amlo 2.5 BID-repeat TTE (5) Fever Status: Acute Problem Text: 12/27: Afebrile since 12/24 12/25: MAXIMUM TEMPERATURE yesterday 100.8, afebrile since yesterday at 2300 12/24: Fever recurred, MAXIMUM TEMPERATURE overnight of 103.4 12/23 afebrile since admission 12/22: Patient has been afebrile, MAXIMUM TEMPERATURE 98.7. She will continue on Vanco and meropenem as per infectious disease 12/21 Tm 99.8, WBC stable at 10.6 D1 vanco/shamar (D3 ceftriaxone 2 gm-last dose 12/21) 12/20 LP done 2 persistent fluid collection at craniotomy site, MS change and fever to 100.4: GS -, CX P, 954 WBC (76% PMN), 111 prot, 50 glc (no ho MRSA)- therefore, thomas Castillo and changed to vanco/shamar (unknown PCN allergy, but tolerated ceftriaxone) 12/20 LA 1.2 (12/19 3.5!) (6) Hypokalemia Problem Text: 12/27: Potassium of 3.4 today, order placed for 40 meqs of oral KCl 2 doses 12/25: Potassium of 3.1 today. Orders placed for K run 1, 40 meqs of oral KCl 2 doses. Repeat BMP tomorrow. Continue to monitor (7) Seizure disorder Status: Chronic Problem Text: 12/25: CSF PCR negative, repeat CSF Gram stain and culture was negative, anaerobic culture negative, blood culture 1 no growth after 24 hours 12/22: CSF culture did not show any organisms, CSF PCR still pending 12/21/2016: LP completed a 12/20/2016. Patient has some soreness in the back around puncture site. CSF culture pending. 2 focus 2 brain tumor resection 12/[address] head c stable STS/fluid collection seen on 12/18 CT-case dw Dr. Jordan who agrees favors fluid is 2 to necrotic tissue, but given fever/MS change, agrees c LP (as did Dr. Castillo)-case dw c Dr. Arturo Foster who wanted clearance from [facility] 12/19 Dr. Herrera increased leve to 1000 BID given sz episode-partially 2 UTI/hypoNa /? fluid collection 12/19 EEG This EEG in awake, drowsy states, stage 1 and 2 sleep is abnormal due to presence of left temporal intermittent rhythmic delta activity/temporal intermittent rhythmic delta activity (TIRDA) with separate to left central head region consistent with focal cortical structural or functional abnormality with epileptic potential. No clinical or electrographic seizures were recorded. Clinical correlation is recommended. DD: KERRI HERRERA MD 12/20/16 0658 12/18 CT head The patient is status post resection of a left temporal lobe tumor. There is postoperative change in the posterior left temporal lobe with decreased mass effect compared to the previous study. There is increased soft tissue swelling and fluid overlying the craniotomy site. (8) Anemia Status: Chronic Problem Specific Plan: Monitor Clinically Problem Text: 12/27: Hemoglobin stable at 10.3 12/25: Hemoglobin stable at 10.5 12/23 - No labs ordered, will obtain. Hgb had trended from 10.8 12/21 to 9.7 12/21/2016: Hemoglobin improving today, 10.8. caution on chronic po steroid (on panto 40 QD for px) 12/20 hgb down to 9.4 (10.2, 11.2)-check HO baseline hgb 12s (12/09 wt 69, 12/20 79) On Supplemental B12 and Iron. 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 Patient was set up for biopsy of the nodule to rule out primary lesion. The nodule could not be biopsied by interventional radiology secondary to size. Dr. Morales noted that the lesion was unlikely a primary metastatic lesion. Patient proceeded to have a biopsy of her brain mass which resulted in glioblastoma. Lung nodule will need to be followed as outpatient. 11/24/2016: I reconfirmed this assessment with Dr. 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 (clinical academic allergist) 11/19/16: Per Interventional Rad: most likely not a primary. Proceed with brain mass bx and pathology prior to lung nodule eval. 11/17/2016: Pulmonology, informal consult, advised against bronchoscopy. Recommends interventional to see if can get to nodule. Dr. Jordan is requesting that we strongly consider working up this lung nodule while she is in the hospital. He has a strong clinical suspicion that the brain lesion is metastatic. Additionally if she has a primary lung cancer it may change his recommendation to do an excisional bx of the brain lesion which almost assuredly leave her with some weakness and speech deficits. Tomorrow we should contact IR and/or Pulm to see whether CT guided bx or navigational bronchoscopy with bx is the best way to get a sample of this lesion. ------ CT Chest: 14 mm nodule in the anterior segment of the right lower lobe, not present on the comparison study. (12) Brain compression Status: Acute Response to Treatment: Controlled Problem Specific Plan: Monitor Clinically Problem Text: Dr. Jordan, brain edema and swelling treated with the left lateral ventriculostomy on 11/24/16. (13) HTN (hypertension) Status: Chronic Problem Specific Plan: Monitor Clinically Problem Text: BP is well controlled today. Continue current regimen, monitor. (14) CAD (coronary artery disease) Status: Chronic Problem Specific Plan: Monitor Clinically Problem Text: No active symptoms (15) COPD (chronic obstructive pulmonary disease) Status: Chronic Problem Specific Plan: Monitor Clinically Problem Text: Stable (16) Hemorrhoids Status: Chronic Problem Text: 12/22: Order placed for topical Preparation H (17) Physical deconditioning Problem Text: 12/22: Order is renewed for PT and OT Plan/VTE VTE Prophylaxis Ordered?: Yes (TEDs and SCDs) VTE Exclusion Pharmacological: Bleeding Risk (intracranial procedure) Plan Therapy: PT, OT Anticipated Discharge: Home With Services (based on therapy's recommendation) VS, I&O, 24H, Fishbone Vital Signs/I&O Vital Signs Date Time Temp Pulse Resp B/P (MAP) Pulse Ox O2 Delivery O2 Flow Rate FiO2 12/28/16 02:35 68/ (22) 12/28/16 00:00 Room Air 12/27/16 23:59 98.0 86 18 94 12/26/16 02:01 1.0 Laboratory Data 24H LABS Laboratory Tests 2 12/27/16 04:57: Immature Granulocyte % (Auto) , Nucleated Red Blood Cells % (auto) 0.0, Neutrophils 77H, Lymphocytes (Manual) 11L, Monocytes (Manual) 9H, Metamyelocytes 1H, Atypical Lymphocytes 2, Platelet Estimate NORMAL, Anisocytosis 1+, Anion Gap 8, Glomerular Filtration Rate > 60.0, Blood Urea Nitrogen 8, Creatinine 0.41L, Sodium Level 136, Potassium Level 3.4L, Chloride Level 104, Carbon Dioxide Level 24, Calcium Level 9.1, Aspartate Amino Transf ( AST/SGOT) 28, Alanine Aminotransferase (ALT/SGPT) 44, Alkaline Phosphatase 49, Total Bilirubin 0.4, Total Protein 5.2L, Albumin 2.0L, Albumin/Globulin Ratio 0.63L 12/27/16 19:17: Blood Gas Bicarbonate Standard 23.5, Arterial Blood pH 7.450, Arterial Blood Partial Pressure CO2 32.8L, Arterial Blood Partial Pressure O2 75.3, Arterial Blood Total CO2 23.3, Arterial Blood HCO3 22.3, Arterial Blood Base Excess -1.2 , Arterial Blood Oxygen Saturation 96.0 CBC/BMP Laboratory Tests 12/27/16 04:57 Red Blood Count 3.87 L, Mean Corpuscular Volume 80.6, Mean Corpuscular Hemoglobin 26.6 L, Mean Corpuscular Hemoglobin Concent 33.0, Red Cell Distribution Width 15.9 H, Calcium Level 9.1, Aspartate Amino Transf (AST/SGOT) 28, Alanine Aminotransferase (ALT/SGPT) 44, Alkaline Phosphatase 49, Total Bilirubin 0.4, Total Protein 5.2 L, Albumin 2.0 L Microbiology Microbiology 12/24/16 Blood Culture - Preliminary, Resulted No Growth after 72 hours. All specime... 12/19/16 Blood Culture - Final, Complete NO GROWTH AFTER 5 DAYS 12/23/16 Gram Stain - Final, Complete 12/23/16 CSF Culture - Final, Complete 12/20/16 Fungal Smear, Received Pending 12/20/16 Fungal Culture, Received Pending 12/20/16 Gram Stain - Final, Complete 12/20/16 CSF Culture - Final, Complete 12/20/16 - Final, Complete 12/20/16 Stool Occult Blood (HECTOR) - Final, Complete 12/18/16 Urine Culture - Final, Complete Escherichia Coli 12/23/16 Anaerobic Culture - Final, Complete Bradford Coello MD Dec 28, 2016 04:04
[2016-12-28 04:19] LABS: MEAN CORPUSCULAR HEMOGLOBIN 27.6 pg (27.0-33.0); MEAN CORPUSCULAR HGB CONC 34.2 g/dl (32.0-36.5); MEAN CORPUSCULAR VOLUME 80.8 fl (80.0-96.0); PLATELET COUNT, AUTOMATED 220 10^3/uL (150-450); RED CELL DISTRIBUTION WIDTH 15.8 % (11.5-14.5); WHITE BLOOD COUNT 6.9 10^3/uL (4.0-10.0)
[2016-12-28] MEDS ORDERED: KCL 10MEQ IN 100ML SWI (KRUN) 10 MEQ in APPROPRIATE DILUENT 1 EA IV SCH ×2 (04:30)
[2016-12-28 04:34] LABS: POS COUNT POS FLAG; POSITIVE MORPH POS FLAG
[2016-12-28 04:35] LABS: ADD MANUAL DIFFER YES; DIFF SLIDE NUMBER 13
[2016-12-28] MEDS: NOREPINEPHRINE BITARTRATE 8 MG in D5W 500 ML IV SCH (04:40)
[2016-12-28 04:47] LABS: ALBUMIN 2.1 GM/DL (3.2-5.2); ALBUMIN/GLOBULIN RATIO 0.75 (1.00-1.93); ALKALINE PHOSPHATASE 54 U/L (45-117); ALT/SGPT 60 U/L (12-78); ANION GAP 8 MEQ/L (8-16); AST/SGOT 47 U/L (7-37); BILIRUBIN,TOTAL 0.3 MG/DL (0.2-1.0); BLOOD UREA NITROGEN 8 MG/DL (7-18); CALCIUM LEVEL 8.5 MG/DL (8.8-10.2); CARBON DIOXIDE LEVEL 25 MEQ/L (21-32); CHLORIDE LEVEL 106 MEQ/L (98-107); CREATININE FOR GFR 0.45 MG/DL (0.55-1.02); GLOMERULAR FILTRATION RATE > 60.0 (>39); GLUCOSE, FASTING 111 MG/DL (83-110); POTASSIUM SERUM 3.6 MEQ/L (3.5-5.1); SODIUM LEVEL 139 MEQ/L (136-145); TOTAL PROTEIN 4.9 GM/DL (6.4-8.2)
[2016-12-28] MEDS: SLF 3 ML SYR IV SCH ×3 (05:40→21:41)
[2016-12-28] MEDS: VANCOMYCIN HCL 1,000 MG, VIAL MATE ADAPTER 1 EACH in D5W 250 ML IV SCH ×2 (05:40→17:48)
[2016-12-28 06:26] LABS: BANDS 1 % (< 11); BASOPHILS 1 % (0-4)
[2016-12-28] MEDS ORDERED: KCL 10MEQ IN 100ML SWI (KRUN) 10 MEQ in APPROPRIATE DILUENT 1 EA IV ONE ×4 (06:30→09:30)
[2016-12-28] MEDS: CALCIUM/VITAMIN D 500 MG TAB PO SCH ×2 (08:36→21:18)
[2016-12-28] MEDS: levETIRAcetam 250MG TABLET (KEPPRA) PO SCH ×2 (08:36→21:18)
[2016-12-28] MEDS: CYANOCOBALAMIN 500 MCG TAB PO SCH (08:36)
[2016-12-28] MEDS: NYSTATIN 100,000 UNITS/GM TOPICAL PWD 15 GM TOP SCH ×2 (08:37→21:21)
[2016-12-28] MEDS: BISOPROLOL FUMARATE 5 MG TAB PO SCH ×2 (08:37→21:21)
[2016-12-28] MEDS: LORATADINE 10 MG TAB PO SCH (08:37)
[2016-12-28] MEDS: FERROUS GLUCONATE 324 MG TAB PO SCH (08:37)
[2016-12-28] MEDS: CLOTRIMAZOLE 10 MG TROCHE PO SCH ×4 (08:37→21:18)
[2016-12-28] MEDS: ACETAMINOPHEN 500 MG TAB PO PRN (08:40)
[2016-12-28] MEDS: MIRALAX *UNIT DOSE* 17GM PACKET PO SCH (08:53)
[2016-12-28] MEDS: PANTOPRAZOLE 40MG TAB (PROTONIX) PO SCH (09:00)
[2016-12-28] MEDS: ADVAIR HFA 115/21MCG INHALER INH SCH ×2 (09:00→20:50)
--- NOTE | 2016-12-28 10:27 | IPNPDOC ---
Subjective Date Seen The patient was seen on 12/28/16. Subjective Chief Complaint/HPI The patient is a 76-year-old female admitted with a reason for visit of Brain Mass. General: Reports: ROS Unobtainable Objective Physical Examination General Exam: Positive: Cooperative, No Acute Distress Eye Exam: Positive: EOMI, Negative: Sclera icteric Neck Exam: Negative: thyromegaly, Lymphadenopathy Chest Exam: Positive: Normal air movement, Negative: Rales, Rhonchi, Wheezing Heart Exam: Positive: Tachycardic, Irregular Rhythm, Normal S1, Normal S2, Negative: Gallops, Murmurs, Rubs Telemetry: Positive: Atrial fibrillation (afib vs flutter, but irregular so favor former), Tachycardia Abdomen Exam: Positive: Normal bowel sounds, Soft, Negative: Tenderness, Hepatospenomegaly, Mass Extremity Exam: Positive: Normal pulses, Negative: Edema Skin Exam: Positive: Other skin issue (mottled discoloration, more brownish than purple on lower extremities. ) Psych Exam: Positive: Other (somewhat confused.) Assessment /Plan Problems (1) Septic shock Status: Acute Problem Text: 12/28: maintaining bp with 5mcg levophed, CVP 7. Rhythm varies between sinus and afib 12/28: BP down, respiratory difficulties with fluid challenge. Back to ICU with Levophed initiated. New lactic acid ordered stat and for 4 hours. Will check CVP as another indicator of volume status. Code status still Full Code. 12/27: Resolved, patient stable in PCU off of pressors. Continue to monitor for recurrence. 12/25: Patient required initiation of norepinephrine overnight. Blood pressure stable on norepinephrine. A discussion was had with the family regarding her current situation, they were made aware of her recent deterioration. She will remain a full code at this time, family will discuss her further care amongst themselves. 12/24: Developed septic shock today, T-max overnight of 103.4, hypotension with blood pressure as low as 76/42. Patient was given a 30 mL per KG fluid bolus. Patient was transferred to ICU and intensive care was consulted. (2) Meningitis Status: Acute Response to Treatment: Stable, Improving Discussed With: Nurse, Patient Problem Specific Plan: Consult Specialist, Monitor Clinically, Repeat Labs Problem Text: 12/28 continue vancomycin and meropenem 12/27: As per infectious disease patient will continue on Vanco and meropenem for a treatment duration of 2 weeks 12/25: CSF PCR negative, repeat CSF Gram stain and culture was negative, anaerobic culture negative, blood culture 1 no growth after 24 hours 12/24: Patient had drain of scalp swelling yesterday which was consistent CSF, showing 718 white blood cells, 95% PMNs, glucose of 15, total protein of 82. She is concurrently being managed by infectious disease, she will continue on vancomycin and meropenem. 12/23: Pt with Nosocomial meningitis, she is being followed by ID. She has had LP with pleocytosis and neutrophils, her T protein is elevated. her cultures have been Neg but she had received Rocephin prior to LP being performed. Vanco/ Meropenam dosing per ID. (3) Glioblastoma multiforme Status: Chronic Problem Text: 11/24/16 sp Stent-based frameless stereotactic left posterior temporal-parietal craniotomy with microsurgical resection of large mass, cranioplasty, and marked brain edema and swelling treated with the left lateral ventriculostomy for Left temporal-parietal GBM with brain swelling by Dr. Jordan (4) Diastolic congestive heart failure Permanent Comment: 12/22/16: Echocardiogram showed hyperdynamic left ventricular systolic function, LVEF 75%, atrial flutter. Moderate elevation of pulmonary artery systolic pressure. Mild aortic valve sclerosis, mild aortic regurgitation. Negative for mitral regurgitation. Mild left atrial dilation Last Edited By: Alexus Herman PA-C on Dec 23, 2016 10:09 Status: Chronic Problem Text: 12/28: acute decompensation yesterday when attempt to use fluid bolus to support hypotension was made. she developed mild dyspnea, cxr showed vascular engorgement, moved to ICU for levophed to address hypotension. 12/23 appears compensated. 12/21 BNP 1541 c mild decompensation-held IVF and amlo 2.5 BID-repeat TTE (5) Fever Status: Acute Problem Text: 12/27: Afebrile since 12/24 12/25: MAXIMUM TEMPERATURE yesterday 100.8, afebrile since yesterday at 2300 12/24: Fever recurred, MAXIMUM TEMPERATURE overnight of 103.4 12/23 afebrile since admission 12/22: Patient has been afebrile, MAXIMUM TEMPERATURE 98.7. She will continue on Vanco and meropenem as per infectious disease 12/21 Tm 99.8, WBC stable at 10.6 D1 vanco/shamar (D3 ceftriaxone 2 gm-last dose 12/21) 12/20 LP done 2 persistent fluid collection at craniotomy site, MS change and fever to 100.4: GS -, CX P, 954 WBC (76% PMN), 111 prot, 50 glc (no ho MRSA)- therefore, thomas Castillo and changed to vanco/shamar (unknown PCN allergy, but tolerated ceftriaxone) 12/20 LA 1.2 (12/19 3.5!) (6) Hypokalemia Problem Text: 12/27: Potassium of 3.4 today, order placed for 40 meqs of oral KCl 2 doses 12/25: Potassium of 3.1 today. Orders placed for K run 1, 40 meqs of oral KCl 2 doses. Repeat BMP tomorrow. Continue to monitor (7) Seizure disorder Status: Chronic Problem Text: 12/25: CSF PCR negative, repeat CSF Gram stain and culture was negative, anaerobic culture negative, blood culture 1 no growth after 24 hours 12/22: CSF culture did not show any organisms, CSF PCR still pending 12/21/2016: LP completed a 12/20/2016. Patient has some soreness in the back around puncture site. CSF culture pending. 2 focus 2 brain tumor resection 12/[address] head c stable STS/fluid collection seen on 12/18 CT-case dw Dr. Jordan who agrees favors fluid is 2 to necrotic tissue, but given fever/MS change, agrees c LP (as did Dr. Castillo)-case dw c Dr. Arturo Foster who wanted clearance from [facility] 12/19 Dr. Herrera increased leve to 1000 BID given sz episode-partially 2 UTI/hypoNa /? fluid collection 12/19 EEG This EEG in awake, drowsy states, stage 1 and 2 sleep is abnormal due to presence of left temporal intermittent rhythmic delta activity/temporal intermittent rhythmic delta activity (TIRDA) with separate to left central head region consistent with focal cortical structural or functional abnormality with epileptic potential. No clinical or electrographic seizures were recorded. Clinical correlation is recommended. DD: KERRI HERRERA MD 12/20/16 0658 12/18 CT head The patient is status post resection of a left temporal lobe tumor. There is postoperative change in the posterior left temporal lobe with decreased mass effect compared to the previous study. There is increased soft tissue swelling and fluid overlying the craniotomy site. (8) Anemia Status: Chronic Problem Specific Plan: Monitor Clinically Problem Text: 12/27: Hemoglobin stable at 10.3 12/25: Hemoglobin stable at 10.5 12/23 - No labs ordered, will obtain. Hgb had trended from 10.8 12/21 to 9.7 12/21/2016: Hemoglobin improving today, 10.8. caution on chronic po steroid (on panto 40 QD for px) 12/20 hgb down to 9.4 (10.2, 11.2)-check HO baseline hgb 12s (12/09 wt 69, 12/20 79) On Supplemental B12 and Iron. 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 Patient was set up for biopsy of the nodule to rule out primary lesion. The nodule could not be biopsied by interventional radiology secondary to size. Dr. Morales noted that the lesion was unlikely a primary metastatic lesion. Patient proceeded to have a biopsy of her brain mass which resulted in glioblastoma. Lung nodule will need to be followed as outpatient. 11/24/2016: I reconfirmed this assessment with Dr. 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 Proceed with brain mass bx and pathology prior to lung nodule eval. 11/17/2016: Pulmonology, informal consult, advised against bronchoscopy. Recommends interventional to see if can get to nodule. Dr. Jordan is requesting that we strongly consider working up this lung nodule while she is in the hospital. He has a strong clinical suspicion that the brain lesion is metastatic. Additionally if she has a primary lung cancer it may change his recommendation to do an excisional bx of the brain lesion which almost assuredly leave her with some weakness and speech deficits. Tomorrow we should contact IR and/or Pulm to see whether CT guided bx or navigational bronchoscopy with bx is the best way to get a sample of this lesion. ------ CT Chest: 14 mm nodule in the anterior segment of the right lower lobe, not present on the comparison study. (12) Brain compression Status: Acute Response to Treatment: Controlled Problem Specific Plan: Monitor Clinically Problem Text: Dr. Jordan, brain edema and swelling treated with the left lateral ventriculostomy on 11/24/16. (13) HTN (hypertension) Status: Chronic Problem Specific Plan: Monitor Clinically Problem Text: BP is well controlled today. Continue current regimen, monitor. (14) CAD (coronary artery disease) Status: Chronic Problem Specific Plan: Monitor Clinically Problem Text: No active symptoms (15) COPD (chronic obstructive pulmonary disease) Status: Chronic Problem Specific Plan: Monitor Clinically Problem Text: Stable (16) Hemorrhoids Status: Chronic Problem Text: 12/22: Order placed for topical Preparation H (17) Physical deconditioning Problem Text: 12/22: Order is renewed for PT and OT Plan/VTE VTE Prophylaxis Ordered?: Yes (TEDs and SCDs) VTE Exclusion Pharmacological: Bleeding Risk (intracranial procedure) Plan Therapy: PT, OT Anticipated Discharge: Home With Services (based on therapy's recommendation) VS, I&O, 24H, Fishbone Vital Signs/I&O Vital Signs Date Time Temp Pulse Resp B/P (MAP) Pulse Ox O2 Delivery O2 Flow Rate FiO2 12/28/16 08:37 116 12/28/16 06:15 114/62 (79) 12/28/16 06:00 94 12/28/16 04:40 20 12/28/16 04:00 98.5 12/28/16 04:00 Room Air 12/26/16 02:01 1.0 Laboratory Data 24H LABS Laboratory Tests 2 12/27/16 19:17: Blood Gas Bicarbonate Standard 23.5, Arterial Blood pH 7.450, Arterial Blood Partial Pressure CO2 32.8L, Arterial Blood Partial Pressure O2 75.3, Arterial Blood Total CO2 23.3, Arterial Blood HCO3 22.3, Arterial Blood Base Excess -1.2 , Arterial Blood Oxygen Saturation 96.0 12/28/16 03:55: Immature Granulocyte % (Auto) , Nucleated Red Blood Cells % (auto) 0.0, Neutrophils 81H, Band Neutrophils 1, Lymphocytes (Manual) 10L, Monocytes (Manual ) 7, Basophils (Manual) 1, Platelet Estimate NORMAL, Red Blood Cell Morphology NORMAL, Anion Gap 8, Glomerular Filtration Rate > 60.0, Lactic Acid Level 1.9, Blood Urea Nitrogen 8, Creatinine 0.45L, Sodium Level 139, Potassium Level 3.6, Chloride Level 106, Carbon Dioxide Level 25, Calcium Level 8.5L, Aspartate Amino Transf (AST/SGOT) 47H, Alanine Aminotransferase (ALT/SGPT) 60, Alkaline Phosphatase 54, Total Bilirubin 0.3, Total Protein 4.9L, Albumin 2.1L, Albumin/ Globulin Ratio 0.75L CBC/BMP Laboratory Tests 12/28/16 03:55 Red Blood Count 3.80 L, Mean Corpuscular Volume 80.8, Mean Corpuscular Hemoglobin 27.6, Mean Corpuscular Hemoglobin Concent 34.2, Red Cell Distribution Width 15.8 H, Calcium Level 8.5 L, Aspartate Amino Transf (AST/SGOT ) 47 H, Alanine Aminotransferase (ALT/SGPT) 60, Alkaline Phosphatase 54, Total Bilirubin 0.3, Total Protein 4.9 L, Albumin 2.1 L Microbiology Microbiology 12/24/16 Blood Culture - Preliminary, Resulted No Growth after 72 hours. All specime... 12/19/16 Blood Culture - Final, Complete NO GROWTH AFTER 5 DAYS 12/23/16 Gram Stain - Final, Complete 12/23/16 CSF Culture - Final, Complete 12/20/16 Fungal Smear, Received Pending 12/20/16 Fungal Culture, Received Pending 12/20/16 Gram Stain - Final, Complete 12/20/16 CSF Culture - Final, Complete 12/20/16 - Final, Complete 12/20/16 Stool Occult Blood (HECTOR) - Final, Complete 12/18/16 Urine Culture - Final, Complete Escherichia Coli 12/23/16 Anaerobic Culture - Final, Complete Bradford Coello MD Dec 28, 2016 10:27
--- NOTE | 2016-12-28 12:33 | REP ---
Bilateral lower extremity Duplex Doppler venous ultrasound: Real time compression and duplex Doppler interrogation of the bilateral lower extremity deep venous system is performed. Bilaterally, the common femoral, superficial femoral and popliteal veins are fully compressible with transducer pressure and demonstrate normal spontaneous and phasic flow, without evidence of deep venous thrombosis. Impression: No evidence of deep venous thrombosis of the bilateral lower extremity femoral popliteal venous system. Signed by Chidi Lloyd MD 12/28/2016 12:25 P
[2016-12-28 13:13] LABS: ALBUMIN 2.1 GM/DL (3.2-5.2); ANION GAP 8 MEQ/L (8-16); BLOOD UREA NITROGEN 9 MG/DL (7-18); CALCIUM LEVEL 8.3 MG/DL (8.8-10.2); CARBON DIOXIDE LEVEL 25 MEQ/L (21-32); CHLORIDE LEVEL 104 MEQ/L (98-107); CREATININE FOR GFR 0.51 MG/DL (0.55-1.02); GLOMERULAR FILTRATION RATE > 60.0 (>39); GLUCOSE, FASTING 112 MG/DL (83-110); PHOSPHORUS LEVEL 1.4 MG/DL (2.5-4.9); POTASSIUM SERUM 3.6 MEQ/L (3.5-5.1); SODIUM LEVEL 137 MEQ/L (136-145)
[2016-12-28] MEDS ORDERED: SODIUM CHLORIDE 0.9% INJ 10 ML SYR IV PRN (20:30)
[2016-12-28] MEDS: ROSUVASTATIN 10 MG TAB (CRESTOR) PO SCH (21:17)
[2016-12-28] MEDS: OLANZapine 2.5MG TABLET PO SCH (21:21)
[2016-12-28] MEDS: SODIUM CHLORIDE 0.9% INJ 10 ML SYR IV SCH (21:22)
[2016-12-29] VITALS (20 sets, daily range): BP systolic 81–122; BP diastolic 44–86
[2016-12-29] MEDS: SODIUM CHLORIDE 0.9% INJ 10 ML SYR IV SCH ×3 (05:54→21:07)
[2016-12-29] MEDS: VANCOMYCIN HCL 1,000 MG, VIAL MATE ADAPTER 1 EACH in D5W 250 ML IV SCH ×2 (05:54→17:43)
[2016-12-29] MEDS: SLF 3 ML SYR IV SCH ×3 (05:55→21:08)
[2016-12-29] MEDS: ADVAIR HFA 115/21MCG INHALER INH SCH ×2 (07:32→22:01)
[2016-12-29] MEDS: MIRALAX *UNIT DOSE* 17GM PACKET PO SCH (09:00)
[2016-12-29] MEDS: BISOPROLOL FUMARATE 5 MG TAB PO SCH ×2 (09:00→21:00)
[2016-12-29] MEDS: CLOTRIMAZOLE 10 MG TROCHE PO SCH ×2 (09:49→13:00)
[2016-12-29] MEDS: LORATADINE 10 MG TAB PO SCH (09:50)
[2016-12-29] MEDS: CYANOCOBALAMIN 500 MCG TAB PO SCH (09:50)
[2016-12-29] MEDS: PANTOPRAZOLE 40MG TAB (PROTONIX) PO SCH (09:50)
[2016-12-29] MEDS: levETIRAcetam 250MG TABLET (KEPPRA) PO SCH ×2 (09:50→21:06)
[2016-12-29] MEDS: NYSTATIN 100,000 UNITS/GM TOPICAL PWD 15 GM TOP SCH ×2 (09:51→21:07)
[2016-12-29] MEDS: FERROUS GLUCONATE 324 MG TAB PO SCH (09:56)
[2016-12-29] MEDS: CALCIUM/VITAMIN D 500 MG TAB PO SCH ×2 (09:56→21:06)
[2016-12-29 09:58] LABS: MEAN CORPUSCULAR HEMOGLOBIN 27.3 pg (27.0-33.0); MEAN CORPUSCULAR HGB CONC 34.2 g/dl (32.0-36.5); MEAN CORPUSCULAR VOLUME 79.8 fl (80.0-96.0); PLATELET COUNT, AUTOMATED 248 10^3/uL (150-450); WHITE BLOOD COUNT 8.2 10^3/uL (4.0-10.0)
[2016-12-29 10:49] LABS: ANION GAP 9 MEQ/L (8-16); BLOOD UREA NITROGEN 12 MG/DL (7-18); CALCIUM LEVEL 8.8 MG/DL (8.8-10.2); CARBON DIOXIDE LEVEL 23 MEQ/L (21-32); CHLORIDE LEVEL 102 MEQ/L (98-107); CREATININE FOR GFR 0.51 MG/DL (0.55-1.02); GLOMERULAR FILTRATION RATE > 60.0 (>39); GLUCOSE, FASTING 125 MG/DL (83-110); PHOSPHORUS LEVEL 1.8 MG/DL (2.5-4.9); POTASSIUM SERUM 3.5 MEQ/L (3.5-5.1); SODIUM LEVEL 134 MEQ/L (136-145)
--- NOTE | 2016-12-29 10:57 | REP ---
MRI BRAIN WITH AND WITHOUT CONTRAST: TECHNIQUE: Multiple sequences obtained in the axial, coronal and sagittal planes prior to and following the intravenous administration of 15 mL of gadolinium. Comparison made with prior study of 12/12/2016. The patient is status post left temporoparietal craniectomy. Once again, there is mixed signal intensity representing subacute and chronic hemorrhage with edema in the posterior left temporal lobe. There is mild irregular ring enhancement identified once again following the intravenous administration of contrast. Dimensions have slightly decreased since prior study by about 2 to 3 mm in all dimensions, measuring approximately 2.8 cm in transverse by 4.1 cm in AP x 2.6 cm in craniocaudal dimension. Mild adjacent vasogenic edema appears essentially unchanged. A small amount of chronic hemorrhage is seen in the occipital horn of the left lateral ventricle which was not present on the prior study. There is again mild effacement of this portion of the left lateral ventricle. There is no midline shift. There is no hydrocephalus. The previously noted 3 mm subdural fluid collection overlying the posterior left temporal lobe has almost completely resolved. A subgaleal fluid collection is present at the craniectomy site, which is fluid signal on all sequences. This has increased in size since the prior study. IMPRESSION: Patient status post resection of left temporal lobe tumor. Abnormal signal intensity with rim enhancement in the left temporal lobe has slightly decreased since prior study most likely representing resolving subacute hemorrhage. Recommend continued followup. The previously noted tiny subdural fluid collection over the posterior left temporal lobe has almost completely resolved. Subgaleal fluid at the craniectomy site has mildly increased since prior study. Signed by Chidi Lloyd MD 12/27/2016 11:56 A
--- NOTE | 2016-12-29 13:52 | RO ---
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 PROCEDURE: Aspiration of cerebrospinal fluid (CSF). SURGEON: Dr. Marquise Jordan [employer] INTELLIGENCE OFFICER: ANESTHESIA: FINDINGS: Patient recently developed a urinary tract infection (UTI) and had degree of metabolic encephalopathy. Post resection of her glioblastoma, she developed what appeared to be poor CSF circulation suggestive of communicating hydrocephalus with CSF effusion under the scalp. On account of a febrile illness, Dr. Castillo from infectious disease has requested that her scalp swelling be drained. The scalp however was unremarkable and has healed. There is no overt evidence of any infection. The fluid under the scalp does not appear to be purulent. It appears to be cerebrospinal fluid as seen on the MRI and the CT scans. Patient was alert, oriented times three and understood clearly and the options and the request of Dr. Castillo to obtain a sample of this fluid. She agreed to proceed with the aspiration. After adequate prep and drape, small subcutaneous tunnel was created using an 18-gauge needle attached to a 3 mL syringe. The subgaleal fluid collection was reached and aspirated and nearly clear cerebrospinal fluid was aspirated and shown to Dr. Castillo and specimen was sent for pathological examination. Blood loss was negligible. Patient tolerated the procedure well. The procedure was done at the bedside in the progressive care unit (PCU).
[2016-12-29] MEDS: MEROPENEM INJ 2 GM in NS 100 ML IV SCH ×2 (15:23→23:42)
--- NOTE | 2016-12-29 16:37 | IPNPDOC ---
Subjective Date Seen The patient was seen on 12/29/16. Subjective Chief Complaint/HPI The patient is a 76-year-old female admitted with a reason for visit of Brain Mass. Events since last encounter Patient reports that she is feeling great today. She states that she is keeping her blood pressure is up. Her only complaint today is of an occasional headache. ENT: Denies: Other Symptoms (dizziness, lightheadedness) Pulmonary: Denies: Dyspnea Cardiovascular: Denies: Chest Pain Objective Physical Examination General Exam: Positive: Cooperative, No Acute Distress Chest Exam: Positive: Clear to auscultation, Normal air movement, Negative: Rales, Rhonchi, Wheezing Heart Exam: Positive: Rate Normal, Irregular Rhythm, Normal S1, Normal S2, Negative: Gallops, Murmurs, Rubs Telemetry: Positive: Atrial fibrillation (afib - flutter) Abdomen Exam: Positive: Normal bowel sounds, Soft, Negative: Tenderness, Hepatospenomegaly, Mass Assessment /Plan Problems (1) Septic shock Status: Acute Problem Text: 12/29: Patient maintaining blood pressure without levophed. She did have some lower blood pressures around 1:00 this afternoon, she will remain in ICU through tomorrow. If she maintains her blood pressure, does not require restarting of pressors, she may be able to be transferred to PCU tomorrow. If patient does drop her blood pressure, hypotension may be secondary to pituitary dysfunction, consider trial of hydrocortisone 12/28: maintaining bp with 5mcg levophed, CVP 7. Rhythm varies between sinus and afib 12/28: BP down, respiratory difficulties with fluid challenge. Back to ICU with Levophed initiated. New lactic acid ordered stat and for 4 hours. Will check CVP as another indicator of volume status. Code status still Full Code. 12/27: Resolved, patient stable in PCU off of pressors. Continue to monitor for recurrence. 12/25: Patient required initiation of norepinephrine overnight. Blood pressure stable on norepinephrine. A discussion was had with the family regarding her current situation, they were made aware of her recent deterioration. She will remain a full code at this time, family will discuss her further care amongst themselves. 12/24: Developed septic shock today, T-max overnight of 103.4, hypotension with blood pressure as low as 76/42. Patient was given a 30 mL per KG fluid bolus. Patient was transferred to ICU and intensive care was consulted. (2) Meningitis Status: Acute Response to Treatment: Stable, Improving Discussed With: Nurse, Patient Problem Specific Plan: Consult Specialist, Monitor Clinically, Repeat Labs Problem Text: 12/28 continue vancomycin and meropenem 12/27: As per infectious disease patient will continue on Vanco and meropenem for a treatment duration of 2 weeks 12/25: CSF PCR negative, repeat CSF Gram stain and culture was negative, anaerobic culture negative, blood culture 1 no growth after 24 hours 12/24: Patient had drain of scalp swelling yesterday which was consistent CSF, showing 718 white blood cells, 95% PMNs, glucose of 15, total protein of 82. She is concurrently being managed by infectious disease, she will continue on vancomycin and meropenem. 12/23: Pt with Nosocomial meningitis, she is being followed by ID. She has had LP with pleocytosis and neutrophils, her T protein is elevated. her cultures have been Neg but she had received Rocephin prior to LP being performed. Vanco/ Meropenam dosing per ID. (3) Glioblastoma multiforme Status: Chronic Problem Text: 11/24/16 sp Stent-based frameless stereotactic left posterior temporal-parietal craniotomy with microsurgical resection of large mass, cranioplasty, and marked brain edema and swelling treated with the left lateral ventriculostomy for Left temporal-parietal GBM with brain swelling by Dr. Jordan (4) Diastolic congestive heart failure Permanent Comment: 12/22/16: Echocardiogram showed hyperdynamic left ventricular systolic function, LVEF 75%, atrial flutter. Moderate elevation of pulmonary artery systolic pressure. Mild aortic valve sclerosis, mild aortic regurgitation. Negative for mitral regurgitation. Mild left atrial dilation Last Edited By: Alexus Herman PA-C on Dec 23, 2016 10:09 Status: Chronic Problem Text: 12/28: acute decompensation yesterday when attempt to use fluid bolus to support hypotension was made. she developed mild dyspnea, cxr showed vascular engorgement, moved to ICU for levophed to address hypotension. 12/23 appears compensated. 12/21 BNP 1541 c mild decompensation-held IVF and amlo 2.5 BID-repeat TTE (5) Fever Status: Acute Problem Text: 12/27: Afebrile since 12/24 12/25: MAXIMUM TEMPERATURE yesterday 100.8, afebrile since yesterday at 2300 12/24: Fever recurred, MAXIMUM TEMPERATURE overnight of 103.4 12/23 afebrile since admission 12/22: Patient has been afebrile, MAXIMUM TEMPERATURE 98.7. She will continue on Vanco and meropenem as per infectious disease 12/21 Tm 99.8, WBC stable at 10.6 D1 vanco/shamar (D3 ceftriaxone 2 gm-last dose 12/21) 12/20 LP done 2 persistent fluid collection at craniotomy site, MS change and fever to 100.4: GS -, CX P, 954 WBC (76% PMN), 111 prot, 50 glc (no ho MRSA)- therefore, thomas Castilol and changed to vanco/shamar (unknown PCN allergy, but tolerated ceftriaxone) 12/20 LA 1.2 (12/19 3.5!) (6) Hypokalemia Problem Text: 12/27: Potassium of 3.4 today, order placed for 40 meqs of oral KCl 2 doses 12/25: Potassium of 3.1 today. Orders placed for K run 1, 40 meqs of oral KCl 2 doses. Repeat BMP tomorrow. Continue to monitor (7) Seizure disorder Status: Chronic Problem Text: 12/25: CSF PCR negative, repeat CSF Gram stain and culture was negative, anaerobic culture negative, blood culture 1 no growth after 24 hours 12/22: CSF culture did not show any organisms, CSF PCR still pending 12/21/2016: LP completed a 12/20/2016. Patient has some soreness in the back around puncture site. CSF culture pending. 2 focus 2 brain tumor resection 12/[address] head c stable STS/fluid collection seen on 12/18 CT-case dw Dr. Jordan who agrees favors fluid is 2 to necrotic tissue, but given fever/MS change, agrees c LP (as did Dr. Castillo)-case dw c Dr. Arturo Foster who wanted clearance from [facility] 12/19 Dr. Herrera increased leve to 1000 BID given sz episode-partially 2 UTI/hypoNa /? fluid collection 12/19 EEG This EEG in awake, drowsy states, stage 1 and 2 sleep is abnormal due to presence of left temporal intermittent rhythmic delta activity/temporal intermittent rhythmic delta activity (TIRDA) with separate to left central head region consistent with focal cortical structural or functional abnormality with epileptic potential. No clinical or electrographic seizures were recorded. Clinical correlation is recommended. DD: KERRI HERRERA MD 12/20/16 0658 12/18 CT head The patient is status post resection of a left temporal lobe tumor. There is postoperative change in the posterior left temporal lobe with decreased mass effect compared to the previous study. There is increased soft tissue swelling and fluid overlying the craniotomy site. (8) Anemia Status: Chronic Problem Specific Plan: Monitor Clinically Problem Text: 12/29: Hemoglobin stable at at 10.8 12/27: Hemoglobin stable at 10.3 12/25: Hemoglobin stable at 10.5 12/23 - No labs ordered, will obtain. Hgb had trended from 10.8 12/21 to 9.7 12/21/2016: Hemoglobin improving today, 10.8. caution on chronic po steroid (on panto 40 QD for px) 12/20 hgb down to 9.4 (10.2, 11.2)-check HO baseline hgb 12s (12/09 wt 69, 12/20 79) On Supplemental B12 and Iron. 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 Patient was set up for biopsy of the nodule to rule out primary lesion. The nodule could not be biopsied by interventional radiology secondary to size. Dr. Morales noted that the lesion was unlikely a primary metastatic lesion. Patient proceeded to have a biopsy of her brain mass which resulted in glioblastoma. Lung nodule will need to be followed as outpatient. 11/24/2016: I reconfirmed this assessment with Dr. 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 (brass finisher) 11/19/16: Per Interventional Rad: most likely not a primary. Proceed with brain mass bx and pathology prior to lung nodule eval. 11/17/2016: Pulmonology, informal consult, advised against bronchoscopy. Recommends interventional to see if can get to nodule. Dr. Jordan is requesting that we strongly consider working up this lung nodule while she is in the hospital. He has a strong clinical suspicion that the brain lesion is metastatic. Additionally if she has a primary lung cancer it may change his recommendation to do an excisional bx of the brain lesion which almost assuredly leave her with some weakness and speech deficits. Tomorrow we should contact IR and/or Pulm to see whether CT guided bx or navigational bronchoscopy with bx is the best way to get a sample of this lesion. ------ CT Chest: 14 mm nodule in the anterior segment of the right lower lobe, not present on the comparison study. (12) Brain compression Status: Acute Response to Treatment: Controlled Problem Specific Plan: Monitor Clinically Problem Text: Dr. Jordan, brain edema and swelling treated with the left lateral ventriculostomy on 11/24/16. (13) HTN (hypertension) Status: Chronic Problem Specific Plan: Monitor Clinically Problem Text: BP is well controlled today. Continue current regimen, monitor. (14) CAD (coronary artery disease) Status: Chronic Problem Specific Plan: Monitor Clinically Problem Text: No active symptoms (15) COPD (chronic obstructive pulmonary disease) Status: Chronic Problem Specific Plan: Monitor Clinically Problem Text: Stable (16) Hemorrhoids Status: Chronic Problem Text: 12/22: Order placed for topical Preparation H (17) Physical deconditioning Problem Text: 12/22: Order is renewed for PT and OT (18) Hypophosphatemia Problem Text: 12/29: Phosphorus of 1.8 today, up from 1.4 yesterday Plan/VTE VTE Prophylaxis Ordered?: Yes (TEDs and SCDs) VTE Exclusion Pharmacological: Bleeding Risk (intracranial procedure) Plan Therapy: PT, OT Anticipated Discharge: Home With Services (based on therapy's recommendation) VS, I&O, 24H, Fishbone Vital Signs/I&O Vital Signs Date Time Temp Pulse Resp B/P (MAP) Pulse Ox O2 Delivery O2 Flow Rate FiO2 12/29/16 15:51 Room Air 12/29/16 13:04 100 16 98/57 (71) 12/29/16 12:01 98.8 94 12/26/16 02:01 1.0 I&O- Last 24 Hours up to 6 AM 12/30/16 06:00 Intake Total 340 ml Output Total 300 ml Balance 40 ml Laboratory Data 24H LABS Laboratory Tests 2 12/29/16 09:51: Nucleated Red Blood Cells % (auto) 0.0, Anion Gap 9, Glomerular Filtration Rate > 60.0, Blood Urea Nitrogen 12, Creatinine 0.51L, Sodium Level 134L, Potassium Level 3.5, Chloride Level 102, Carbon Dioxide Level 23, Calcium Level 8.8, Phosphorus Level 1.8#L CBC/BMP Laboratory Tests 12/29/16 09:51 Red Blood Count 3.96 L, Mean Corpuscular Volume 79.8 L, Mean Corpuscular Hemoglobin 27.3, Mean Corpuscular Hemoglobin Concent 34.2, Red Cell Distribution Width 16.0 H, Calcium Level 8.8 Microbiology Microbiology 12/24/16 Blood Culture - Final, Complete NO GROWTH AFTER 5 DAYS 12/19/16 Blood Culture - Final, Complete NO GROWTH AFTER 5 DAYS 12/23/16 Gram Stain - Final, Complete 12/23/16 CSF Culture - Final, Complete 12/20/16 Fungal Smear, Received Pending 12/20/16 Fungal Culture, Received Pending 12/20/16 Gram Stain - Final, Complete 12/20/16 CSF Culture - Final, Complete 12/20/16 - Final, Complete 12/20/16 Stool Occult Blood (HECTOR) - Final, Complete 12/23/16 Anaerobic Culture - Final, Complete GME ATTESTATION GME ATTESTATION My faculty preceptor for this patient encounter was physically present during the encounter and was fully available. All aspects of the patient interview, examination, medical decision making process, and medical care plan development were reviewed and approved by the faculty preceptor. The faculty preceptor is aware and concurs with the plan as stated in the body of this note and will attest to such by his/her cosignature. ATTENDING NOTE I saw and examined Ms. Santos this afternoon; I discussed her care with Dr. Garay and I agree with his note as documented above. I anticipate transfer to PCU tomorrow if BP remains acceptable overnight. (KES) EMMA GARAY DO Dec 29, 2016 16:36 KERRI SAWYER MD Dec 29, 2016 18:54
[2016-12-29] MEDS: ACETAMINOPHEN 500 MG TAB PO PRN (17:44)
[2016-12-29] MEDS: OLANZapine 2.5MG TABLET PO SCH (21:06)
[2016-12-29] MEDS: ROSUVASTATIN 10 MG TAB (CRESTOR) PO SCH (21:06)
--- NOTE | 2016-12-29 23:28 | IPN ---
DATE: 12/29/2016 Mrs. Santos seems to be lethargic. She is not as alert as a couple of weeks ago. She has remained in the intensive care unit (ICU), but has remained afebrile for the past 5 days. Temperature is 96.7, pulse 96, respirations 27, blood pressure 91/54, oxygen saturation 98% on 4 liters nasal cannula. Heart: Normal S1, S2. No murmurs. Lungs are clear. No wheezes, rales or rhonchi. Abdomen: Soft, nontender. Extremities: No edema, clubbing or cyanosis. No calf tenderness. Neck is supple. Left scalp area has a healed scar. There is a subcutaneous CSF fluid. There is no tenderness or redness overlying the skin. LABORATORY DATA: White count is 8.2, hemoglobin 10.8, hematocrit 31.6, platelets 248. Sodium 134, potassium 3.5, chloride 102, bicarbonate 23, BUN 12, creatinine 0.5, glucose 125, calcium 8.8, magnesium 1.8. Cultures final from CSF and the subcutaneous collection under the scalp were both negative. Final fungal smear and culture are pending. Blood culture from 12/24/2016 was negative as well. IMPRESSION: 1. Presumptive hospital-acquired meningitis based on cerebrospinal fluid (CSF) fluid with predominant neutrophils, mental status changes and fever. The patient has been on IV vancomycin and meropenem for a total of currently day #9 out of 14. MRI of brain was done without followed by with, read by Dr. Lloyd, showed no evidence of abscess, resolving subacute hemorrhage and the subdural fluid collection over the posterior left temporal lobe has completely resolved. 2. Mental status changes with more lethargy than a couple of weeks ago. The patient has been off Decadron since 12/22/2016. She might have hydrocephalus and may need repeated lumbar puncture to drain 40 mL of CSF to see if her mental status will improve. Dr. Jordan asked me if it would be safe to put a ventriculoperitoneal (WIRE FRAME DIPPER) shunt if she needs to have one. I have recommended she finishes 14 whole day course of IV vancomycin and meropenem before a WIRE FRAME DIPPER shunt is placed. PLAN: Continue IV meropenem and vancomycin until 01/03/2017. Consider repeating lumbar puncture to see if CSF findings have improved. WIRE FRAME DIPPER shunt will not be done if needed until at least next week after 01/04/2017.
[2016-12-30] VITALS (12 sets, daily range): BP systolic 81–111; BP diastolic 47–62
[2016-12-30] MEDS: ACETAMINOPHEN 500 MG TAB PO PRN (02:22)
[2016-12-30 05:09] LABS: MEAN CORPUSCULAR HEMOGLOBIN 27.2 pg (27.0-33.0); MEAN CORPUSCULAR HGB CONC 33.3 g/dl (32.0-36.5); MEAN CORPUSCULAR VOLUME 81.5 fl (80.0-96.0); PLATELET COUNT, AUTOMATED 237 10^3/uL (150-450); RED CELL DISTRIBUTION WIDTH 15.9 % (11.5-14.5); WHITE BLOOD COUNT 7.3 10^3/uL (4.0-10.0)
[2016-12-30] MEDS: VANCOMYCIN HCL 1,000 MG, VIAL MATE ADAPTER 1 EACH in D5W 250 ML IV SCH (05:10)
[2016-12-30] MEDS: SLF 3 ML SYR IV SCH ×3 (05:10→23:14)
[2016-12-30] MEDS: SODIUM CHLORIDE 0.9% INJ 10 ML SYR IV SCH ×3 (05:10→22:00)
[2016-12-30 05:29] LABS: ANION GAP 6 MEQ/L (8-16); BLOOD UREA NITROGEN 15 MG/DL (7-18); CALCIUM LEVEL 9.3 MG/DL (8.8-10.2); CARBON DIOXIDE LEVEL 28 MEQ/L (21-32); CHLORIDE LEVEL 104 MEQ/L (98-107); CREATININE FOR GFR 0.71 MG/DL (0.55-1.02); GLOMERULAR FILTRATION RATE > 60.0 (>39); GLUCOSE, FASTING 105 MG/DL (83-110); POTASSIUM SERUM 3.5 MEQ/L (3.5-5.1); SODIUM LEVEL 138 MEQ/L (136-145)
[2016-12-30] MEDS: NOREPINEPHRINE BITARTRATE 8 MG in D5W 500 ML IV SCH ×2 (06:52→23:48)
--- NOTE | 2016-12-30 07:24 | IPNPDOC ---
Subjective Date Seen The patient was seen on 12/30/16. Subjective Chief Complaint/HPI The patient is a 76-year-old female admitted with a reason for visit of Brain Mass. Events since last encounter States slept well. denies c/o. Has been off of Levophed for 24 hours. Planned Spinal tap today for repeat CSF eval by Dr. Jordan. Started on Decadron last night. Constitutional: Denies: Chills, Fever, Night Sweats ENT: Denies: Head Aches, Ear Pain, Dysphagia Skin: Denies: Rash, Lesions, Breakdown Pulmonary: Denies: Dyspnea, Cough Cardiovascular: Denies: Chest Pain, Palpitations, Orthopnea, Paroxysmal Noc. Dyspnea, Lt Headedness Psych: Reports: Mood Normal, Denies: Depression, Memory Issues Objective Physical Examination General Exam: Positive: Cooperative, No Acute Distress Chest Exam: Positive: Clear to auscultation, Normal air movement, Negative: Rales, Rhonchi, Wheezing Heart Exam: Positive: Rate Normal, Irregular Rhythm, Normal S1, Normal S2, Negative: Gallops, Murmurs, Rubs Telemetry: Positive: Atrial fibrillation (afib - flutter) Abdomen Exam: Positive: Normal bowel sounds, Soft, Negative: Tenderness, Hepatospenomegaly, Mass Extremity Exam: Negative: Edema Psych Exam: Positive: Mental status NL, Oriented x 3 Assessment /Plan Problems (1) Hypotension Status: Acute Response to Treatment: Stable Problem Text: agree 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 IV Meropenem and Vancomycin until . 12/29: Patient maintaining blood pressure without levophed. She did have some lower blood pressures around 1:00 this afternoon, she will remain in ICU through tomorrow. If she maintains her blood pressure, does not require restarting of pressors, she may be able to be transferred to PCU tomorrow. If patient does drop her blood pressure, hypotension may be secondary to pituitary dysfunction, consider trial of hydrocortisone 12/28: maintaining bp with 5mcg levophed, CVP 7. Rhythm varies between sinus and afib 12/28: BP down, respiratory difficulties with fluid challenge. Back to ICU with Levophed initiated. New lactic acid ordered stat and for 4 hours. Will check CVP as another indicator of volume status. Code status still Full Code. 12/27: Resolved, patient stable in PCU off of pressors. Continue to monitor for recurrence. 12/25: Patient required initiation of norepinephrine overnight. Blood pressure stable on norepinephrine. A discussion was had with the family regarding her current situation, they were made aware of her recent deterioration. She will remain a full code at this time, family will discuss her further care amongst themselves. 12/24: Developed septic shock today, T-max overnight of 103.4, hypotension with blood pressure as low as 76/42. Patient was given a 30 mL per KG fluid bolus. Patient was transferred to ICU and intensive care was consulted. (3) Meningitis Status: Acute Response to Treatment: Stable, Improving Discussed With: Nurse, Patient Problem Specific Plan: Consult Specialist, Monitor Clinically, Repeat Labs Problem Text: 12/30/2016: see ID note. IV Meropenem and Vancomycin until . 12/28 continue vancomycin and meropenem 12/27: As per infectious disease patient will continue on Vanco and meropenem for a treatment duration of 2 weeks 12/25: CSF PCR negative, repeat CSF Gram stain and culture was negative, anaerobic culture negative, blood culture 1 no growth after 24 hours 12/24: Patient had drain of scalp swelling yesterday which was consistent CSF, showing 718 white blood cells, 95% PMNs, glucose of 15, total protein of 82. She is concurrently being managed by infectious disease, she will continue on vancomycin and meropenem. 12/23: Pt with Nosocomial meningitis, she is being followed by ID. She has had LP with pleocytosis and neutrophils, her T protein is elevated. her cultures have been Neg but she had received Rocephin prior to LP being performed. Vanco/ Meropenam dosing per ID. (4) Glioblastoma multiforme Status: Chronic Problem Text: 11/24/16 sp Stent-based frameless stereotactic left posterior temporal-parietal craniotomy with microsurgical resection of large mass, cranioplasty, and marked brain edema and swelling treated with the left lateral ventriculostomy for Left temporal-parietal GBM with brain swelling by Dr. Jordan (5) Diastolic congestive heart failure Permanent Comment: 12/22/16: Echocardiogram showed hyperdynamic left ventricular systolic function, LVEF 75%, atrial flutter. Moderate elevation of pulmonary artery systolic pressure. Mild aortic valve sclerosis, mild aortic regurgitation. Negative for mitral regurgitation. Mild left atrial dilation Last Edited By: Alexus Herman PA-C on Dec 23, 2016 10:09 Status: Chronic Problem Text: 12/28: acute decompensation yesterday when attempt to use fluid bolus to support hypotension was made. she developed mild dyspnea, cxr showed vascular engorgement, moved to ICU for levophed to address hypotension. 12/23 appears compensated. 12/21 BNP 1541 c mild decompensation-held IVF and amlo 2.5 BID-repeat TTE (6) Fever Status: Acute Problem Text: 12/27: Afebrile since 12/24 12/25: MAXIMUM TEMPERATURE yesterday 100.8, afebrile since yesterday at 2300 12/24: Fever recurred, MAXIMUM TEMPERATURE overnight of 103.4 12/23 afebrile since admission 12/22: Patient has been afebrile, MAXIMUM TEMPERATURE 98.7. She will continue on Vanco and meropenem as per infectious disease 12/21 Tm 99.8, WBC stable at 10.6 D1 vanco/shamar (D3 ceftriaxone 2 gm-last dose 12/21) 12/20 LP done 2 persistent fluid collection at craniotomy site, MS change and fever to 100.4: GS -, CX P, 954 WBC (76% PMN), 111 prot, 50 glc (no ho MRSA)- therefore, dw Anna and changed to vanco/shamar (unknown PCN allergy, but tolerated ceftriaxone) 12/20 LA 1.2 (12/19 3.5!) (7) Hypokalemia Problem Text: 12/27: Potassium of 3.4 today, order placed for 40 meqs of oral KCl 2 doses 12/25: Potassium of 3.1 today. Orders placed for K run 1, 40 meqs of oral KCl 2 doses. Repeat BMP tomorrow. Continue to monitor (8) Seizure disorder Status: Chronic Problem Text: 12/25: CSF PCR negative, repeat CSF Gram stain and culture was negative, anaerobic culture negative, blood culture 1 no growth after 24 hours 12/22: CSF culture did not show any organisms, CSF PCR still pending 12/21/2016: LP completed a 12/20/2016. Patient has some soreness in the back around puncture site. CSF culture pending. 2 focus 2 brain tumor resection 12/[address] head c stable STS/fluid collection seen on 12/18 CT-case dw Dr. Jordan who agrees favors fluid is 2 to necrotic tissue, but given fever/MS change, agrees c LP (as did Dr. Castillo)-case dw c Dr. Arturo Foster who wanted clearance from [facility] 12/19 Dr. Herrera increased leve to 1000 BID given sz episode-partially 2 UTI/hypoNa /? fluid collection 12/19 EEG This EEG in awake, drowsy states, stage 1 and 2 sleep is abnormal due to presence of left temporal intermittent rhythmic delta activity/temporal intermittent rhythmic delta activity (TIRDA) with separate to left central head region consistent with focal cortical structural or functional abnormality with epileptic potential. No clinical or electrographic seizures were recorded. Clinical correlation is recommended. DD: KERRI HERRERA MD 12/20/16 0658 12/18 CT head The patient is status post resection of a left temporal lobe tumor. There is postoperative change in the posterior left temporal lobe with decreased mass effect compared to the previous study. There is increased soft tissue swelling and fluid overlying the craniotomy site. (9) Anemia Status: Chronic Problem Specific Plan: Monitor Clinically Problem Text: 12/29: Hemoglobin stable at at 10.8 12/27: Hemoglobin stable at 10.3 12/25: Hemoglobin stable at 10.5 12/23 - No labs ordered, will obtain. Hgb had trended from 10.8 12/21 to 9.7 12/21/2016: Hemoglobin improving today, 10.8. caution on chronic po steroid (on panto 40 QD for px) 12/20 hgb down to 9.4 (10.2, 11.2)-check HO baseline hgb 12s (12/09 wt 69, 12/20 79) On Supplemental B12 and Iron. 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 Patient was set up for biopsy of the nodule to rule out primary lesion. The nodule could not be biopsied by interventional radiology secondary to size. Dr. Morales noted that the lesion was unlikely a primary metastatic lesion. Patient proceeded to have a biopsy of her brain mass which resulted in glioblastoma. Lung nodule will need to be followed as outpatient. 11/24/2016: I reconfirmed this assessment with Dr. 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 Proceed with brain mass bx and pathology prior to lung nodule eval. 11/17/2016: Pulmonology, informal consult, advised against bronchoscopy. Recommends interventional to see if can get to nodule. Dr. Jordan is requesting that we strongly consider working up this lung nodule while she is in the hospital. He has a strong clinical suspicion that the brain lesion is metastatic. Additionally if she has a primary lung cancer it may change his recommendation to do an excisional bx of the brain lesion which almost assuredly leave her with some weakness and speech deficits. Tomorrow we should contact IR and/or Pulm to see whether CT guided bx or navigational bronchoscopy with bx is the best way to get a sample of this lesion. ------ CT Chest: 14 mm nodule in the anterior segment of the right lower lobe, not present on the comparison study. (13) Brain compression Status: Acute Response to Treatment: Controlled Problem Specific Plan: Monitor Clinically Problem Text: Dr. Jordan, brain edema and swelling treated with the left lateral ventriculostomy on 11/24/16. (14) HTN (hypertension) Status: Chronic Problem Specific Plan: Monitor Clinically Problem Text: BP is well controlled today. Continue current regimen, monitor. (15) CAD (coronary artery disease) Status: Chronic Problem Specific Plan: Monitor Clinically Problem Text: No active symptoms (16) COPD (chronic obstructive pulmonary disease) Status: Chronic Problem Specific Plan: Monitor Clinically Problem Text: Stable Plan/VTE VTE Prophylaxis Ordered?: Yes (TEDs and SCDs) VTE Exclusion Pharmacological: Bleeding Risk (intracranial procedure) Plan Therapy: PT, OT Anticipated Discharge: Home With Services (based on therapy's recommendation) VS, I&O, 24H, Fishbone Vital Signs/I&O Vital Signs Date Time Temp Pulse Resp B/P (MAP) Pulse Ox O2 Delivery O2 Flow Rate FiO2 12/30/16 06:52 92 25 111/62 96 Nasal Cannula 2.0 12/30/16 04:00 97.0 I&O- Last 24 Hours up to 6 AM 12/31/16 06:00 Intake Total 320 ml Output Total 475 ml Balance -155 ml Laboratory Data 24H LABS Laboratory Tests 2 12/29/16 09:51: Nucleated Red Blood Cells % (auto) 0.0, Anion Gap 9, Glomerular Filtration Rate > 60.0, Blood Urea Nitrogen 12, Creatinine 0.51L, Sodium Level 134L, Potassium Level 3.5, Chloride Level 102, Carbon Dioxide Level 23, Calcium Level 8.8, Phosphorus Level 1.8#L 12/30/16 04:49: Nucleated Red Blood Cells % (auto) 0.0, Anion Gap 6L, Glomerular Filtration Rate > 60.0, Blood Urea Nitrogen 15, Creatinine 0.71, Sodium Level 138, Potassium Level 3.5, Chloride Level 104, Carbon Dioxide Level 28, Calcium Level 9.3 CBC/BMP Laboratory Tests 12/29/16 09:51 Red Blood Count 3.96 L, Mean Corpuscular Volume 79.8 L, Mean Corpuscular Hemoglobin 27.3, Mean Corpuscular Hemoglobin Concent 34.2, Red Cell Distribution Width 16.0 H, Calcium Level 8.8 12/30/16 04:49 Red Blood Count 3.72 L, Mean Corpuscular Volume 81.5, Mean Corpuscular Hemoglobin 27.2, Mean Corpuscular Hemoglobin Concent 33.3, Red Cell Distribution Width 15.9 H, Calcium Level 9.3 Microbiology Microbiology 12/24/16 Blood Culture - Final, Complete NO GROWTH AFTER 5 DAYS 12/23/16 Gram Stain - Final, Complete 12/23/16 CSF Culture - Final, Complete 12/20/16 Fungal Smear, Received Pending 12/20/16 Fungal Culture, Received Pending 12/20/16 Gram Stain - Final, Complete 12/20/16 CSF Culture - Final, Complete 12/20/16 - Final, Complete 12/20/16 Stool Occult Blood (HECTOR) - Final, Complete 12/23/16 Anaerobic Culture - Final, Complete Nancy Johns Dec 30, 2016 07:23 Tushar Barr M.D. Dec 30, 2016 16:58
[2016-12-30] MEDS: MEROPENEM INJ 2 GM in NS 100 ML IV SCH ×2 (08:03→17:56)
[2016-12-30] MEDS: CALCIUM/VITAMIN D 500 MG TAB PO SCH ×2 (08:09→20:07)
[2016-12-30] MEDS: FERROUS GLUCONATE 324 MG TAB PO SCH (08:09)
[2016-12-30] MEDS: CYANOCOBALAMIN 500 MCG TAB PO SCH (08:09)
[2016-12-30] MEDS: BISOPROLOL FUMARATE 5 MG TAB PO SCH ×3 (08:09→20:21)
[2016-12-30] MEDS: LORATADINE 10 MG TAB PO SCH (08:09)
[2016-12-30] MEDS: PANTOPRAZOLE 40MG TAB (PROTONIX) PO SCH (08:09)
[2016-12-30] MEDS: NYSTATIN 100,000 UNITS/GM TOPICAL PWD 15 GM TOP SCH ×2 (08:10→20:08)
[2016-12-30] MEDS: MIRALAX *UNIT DOSE* 17GM PACKET PO SCH (08:10)
[2016-12-30] MEDS: levETIRAcetam 250MG TABLET (KEPPRA) PO SCH ×2 (08:10→20:06)
[2016-12-30] MEDS: ADVAIR HFA 115/21MCG INHALER INH SCH ×2 (08:42→20:59)
--- NOTE | 2016-12-30 18:16 | REP ---
LUMBAR PUNCTURE: The procedure was performed by ANIKA Fernandez under the direct supervision of Dr. Alexander. The procedure along with its risks, benefits, and complications were discussed with the patient's healthcare proxy via telephone. Informed consent was obtained. The patient was identified in the interventional suite and placed in a prone position. A procedural time out was performed to ensure that the correct patient, site and procedure were being performed. An appropriate site was chosen for needle entry and this area was marked, prepped and draped in the usual sterile fashion. Local infiltrative anesthesia was achieved using 1% lidocaine. Lumbar puncture was performed under fluoroscopic guidance at L3-4 via a right oblique sublaminar approach using a 3.5 inch 22-gauge spinal needle. Retrograde free flow of clear CSF was obtained. 40 mL of clear CSF was collected and sent to the lab for further evaluation per Dr. Jordan's request. IMPRESSION: Uncomplicated lumbar puncture at L3-4 yielding 40 mL of clear CSF. Fluoroscopy time of 0.2 minutes were utilized for this procedure. Reviewed by ANIKA Garcia 12/31/2016 09:56 AEdited and Signed by Leroy Alexander MD 12/31/2016 10:11 A
[2016-12-30 18:43] LABS: GLUCOSE CSF 51 MG/DL (40-75)
[2016-12-30] MEDS: ROSUVASTATIN 10 MG TAB (CRESTOR) PO SCH (20:06)
[2016-12-30] MEDS: OLANZapine 2.5MG TABLET PO SCH (20:07)
--- NOTE | 2016-12-30 20:14 | PHACANCOPD ---
PHARMACY VANCOMYCIN DOSING Pt Demographics Demographics Patient Age:76 , Weight:78.400 , Gender: female Adjusted Body Weight Date: 12/21/16, Adjusted Body Weight: Kg Vancomycin Vancomycin Target Ranges: 15-20 mcg/ml Vancomycin Load Y/N: No Load Dose Date Time Vancomycin Load Dose: Date: Time: Vancomycin Dose Date: 12/21/16. Current Vancomycin Dose: [1000MG Q12H] Intermittent Dosing?: No Labs Micro Microbiology 12/24/16 Blood Culture - Final, Complete NO GROWTH AFTER 5 DAYS 12/30/16 Gram Stain - Preliminary, Resulted 12/30/16 CSF Culture, Resulted Pending 12/23/16 Gram Stain - Final, Resulted 12/23/16 CSF Culture - Preliminary, Resulted 12/20/16 Fungal Smear, Received Pending 12/20/16 Fungal Culture, Received Pending 12/20/16 Gram Stain - Final, Complete 12/20/16 CSF Culture - Final, Complete 12/20/16 - Final, Complete 12/20/16 Stool Occult Blood (HECTOR) - Final, Complete 12/23/16 Anaerobic Culture - Final, Complete Creatinine Clearance Date:12/21/16. Creatinine Clearance: [75].LIKELY LESS THAN THIS Pending Labs Trough - @1700 Assessment and Plan Maintaining Current Dose?: No Reason for dose change: Trough too high Pharmacist Note Pharmacist Note 12/30/16: Trough level tonight resulted at 32.5mcg/ml. Vancomycin is currently on hold. A follow-up vancomycin trough is scheduled to be drawn tomorrow morning , 12/30/16 @0500, 24hrs after the last dose. We will resume vancomycin therapy when the patient is back within therapeutic range, and continue to monitor until then. 12/22/16: Trough drawn@1653 before 3rd dose came back @ 12.3mcg.ml. Patient has only received 2 doses and is not yet at steady state. I will maintain current dose and schedule another trough for tomorrow. We will continue to monitor and adjust dose as needed. Date: 12/21/16. Pharmacist note:Dosed at 1000mg q12h with a trough ordered for 12-22 @1700. Will continue to monitor and make adjustments as needed. [facility] Dec 30, 2016 20:14
--- NOTE | 2016-12-30 22:19 | IPN ---
DATE: 12/30/2016 Mrs. Santos was lethargic today, and she choked on her pills having difficulty with swallowing liquids. Her appetite was poor. She only ate 20% of her lunch and 30% of her breakfast. She will be transferred to progressive care unit (PCU). MEDICATIONS: - meropenem 2 grams intravenous (IV) every 8 hours - vancomycin 1 gram IV every 12 hours. This is day number day #10 of IV antibiotics. PHYSICAL EXAMINATION: HEART: Normal S1, S2. No murmurs. LUNGS: Clear. No wheezes or rhonchi. ABDOMEN: Soft, nontender. No hepatosplenomegaly. EXTREMITIES: No edema. NECK: Not stiff. There is some subcutaneous fluid collection underneath the left side of the scalp where the incision was made. The incision is well-healed. IMPRESSION: 1. Probable hospital aquired meningitis, on IV meropenem and vancomycin, day #10 until antibiotics will be continued on January 03. 2. Glioblastoma multiforme, currently treatment on hold. The patient is scheduled for a lumbar puncture to followup on meningitis as well as to remove 40 mL of fluid that will be sent for cell count and to see if it will help improve her mental status. Decadron has been restarted at 2 mg twice a day. LABORATORY DATA: White count 7.3, hemoglobin 10.1, hematocrit 30.3, platelets 237. Sodium 138, potassium 3.5, chloride 104, bicarbonate 28, BUN 15, creatinine 0.7, glucose 105 , calcium 9.3, albumin 2.1. PLAN: Continue IV vancomycin and meropenem until January 03. Will send cerebrospinal fluid (CSF) fluid for cell count, total protein, glucose, Gram stain and culture. Decision of whether the patient will need a ventriculoperitoneal (FELT CUTTER) shunt will depend on whether the patient clinically improves after removal of CSF and after she finishes all antibiotic course until January 03. [facility]
[2016-12-31] VITALS (7 sets, daily range): BP systolic 90–111; BP diastolic 45–61
[2016-12-31] MEDS: MEROPENEM INJ 2 GM in NS 100 ML IV SCH ×4 (00:28→23:07)
[2016-12-31 05:42] LABS: MEAN CORPUSCULAR HEMOGLOBIN 26.9 pg (27.0-33.0); MEAN CORPUSCULAR HGB CONC 33.3 g/dl (32.0-36.5); MEAN CORPUSCULAR VOLUME 80.8 fl (80.0-96.0); PLATELET COUNT, AUTOMATED 255 10^3/uL (150-450); RED CELL DISTRIBUTION WIDTH 15.9 % (11.5-14.5); WHITE BLOOD COUNT 5.9 10^3/uL (4.0-10.0)
[2016-12-31] MEDS ORDERED: NS 500 ML IV ONE (05:45)
[2016-12-31] MEDS: SODIUM CHLORIDE 0.9% INJ 10 ML SYR IV SCH ×3 (06:00→23:07)
[2016-12-31 06:02] LABS: ANION GAP 6 MEQ/L (8-16); BLOOD UREA NITROGEN 15 MG/DL (7-18); CALCIUM LEVEL 9.2 MG/DL (8.8-10.2); CARBON DIOXIDE LEVEL 30 MEQ/L (21-32); CHLORIDE LEVEL 105 MEQ/L (98-107); CREATININE FOR GFR 0.61 MG/DL (0.55-1.02); GLOMERULAR FILTRATION RATE > 60.0 (>39); GLUCOSE, FASTING 105 MG/DL (83-110); POTASSIUM SERUM 3.4 MEQ/L (3.5-5.1); SODIUM LEVEL 141 MEQ/L (136-145)
[2016-12-31] MEDS: SLF 3 ML SYR IV SCH ×4 (06:55→23:07)
[2016-12-31] MEDS: ADVAIR HFA 115/21MCG INHALER INH SCH ×2 (07:59→20:48)
--- NOTE | 2016-12-31 09:06 | IPNPDOC ---
Subjective Date Seen The patient was seen on 12/31/16. Subjective Chief Complaint/HPI The patient is a 76-year-old female admitted with a reason for visit of Brain Mass. Events since last encounter minimally responsive this morning. BP 94/50 this am. received 500 ml bolus overnight. s/p LP with Neurosurgery yesterday. General: Reports: ROS Unobtainable Objective Physical Examination General Exam: Positive: Mild Distress (tachypnea) Chest Exam: Positive: Clear to auscultation, Normal air movement, Negative: Rales, Rhonchi, Wheezing Heart Exam: Positive: Rate Normal, Irregular Rhythm, Normal S1, Normal S2, Negative: Gallops, Murmurs, Rubs Telemetry: Positive: Atrial fibrillation (afib - flutter) Abdomen Exam: Positive: Normal bowel sounds, Soft, Negative: Tenderness, Hepatospenomegaly, Mass Extremity Exam: Negative: Edema Psych Exam: Positive: Other (opens eyes to sternal rub, no veral response), Negative: Oriented x 3 Assessment /Plan Problems (1) Altered mental status Problem Text: change in responsiveness compared to yesterday. CT head and chest today. Dr. Jordan, notified and will eval patient. (2) Hypotension Status: Acute Response to Treatment: Stable Problem Text: 12/31/2016: soft BP this am 94/50. 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 IV Meropenem and Vancomycin until . 12/29: Patient maintaining blood pressure without levophed. She did have some lower blood pressures around 1:00 this afternoon, she will remain in ICU through tomorrow. If she maintains her blood pressure, does not require restarting of pressors, she may be able to be transferred to PCU tomorrow. If patient does drop her blood pressure, hypotension may be secondary to pituitary dysfunction, consider trial of hydrocortisone 12/28: maintaining bp with 5mcg levophed, CVP 7. Rhythm varies between sinus and afib 12/28: BP down, respiratory difficulties with fluid challenge. Back to ICU with Levophed initiated. New lactic acid ordered stat and for 4 hours. Will check CVP as another indicator of volume status. Code status still Full Code. 12/27: Resolved, patient stable in PCU off of pressors. Continue to monitor for recurrence. 12/25: Patient required initiation of norepinephrine overnight. Blood pressure stable on norepinephrine. A discussion was had with the family regarding her current situation, they were made aware of her recent deterioration. She will remain a full code at this time, family will discuss her further care amongst themselves. 12/24: Developed septic shock today, T-max overnight of 103.4, hypotension with blood pressure as low as 76/42. Patient was given a 30 mL per KG fluid bolus. Patient was transferred to ICU and intensive care was consulted. (4) Meningitis Status: Acute Response to Treatment: Stable, Improving Discussed With: Nurse, Patient Problem Specific Plan: Consult Specialist, Monitor Clinically, Repeat Labs Problem Text: 12/30/2016: see ID note. IV Meropenem and Vancomycin until . 12/28 continue vancomycin and meropenem 12/27: As per infectious disease patient will continue on Vanco and meropenem for a treatment duration of 2 weeks 12/25: CSF PCR negative, repeat CSF Gram stain and culture was negative, anaerobic culture negative, blood culture 1 no growth after 24 hours 12/24: Patient had drain of scalp swelling yesterday which was consistent CSF, showing 718 white blood cells, 95% PMNs, glucose of 15, total protein of 82. She is concurrently being managed by infectious disease, she will continue on vancomycin and meropenem. 12/23: Pt with Nosocomial meningitis, she is being followed by ID. She has had LP with pleocytosis and neutrophils, her T protein is elevated. her cultures have been Neg but she had received Rocephin prior to LP being performed. Vanco/ Meropenam dosing per ID. (5) Glioblastoma multiforme Status: Chronic Problem Text: 11/24/16 sp Stent-based frameless stereotactic left posterior temporal-parietal craniotomy with microsurgical resection of large mass, cranioplasty, and marked brain edema and swelling treated with the left lateral ventriculostomy for Left temporal-parietal GBM with brain swelling by Dr. Jordan (6) Diastolic congestive heart failure Permanent Comment: 12/22/16: Echocardiogram showed hyperdynamic left ventricular systolic function, LVEF 75%, atrial flutter. Moderate elevation of pulmonary artery systolic pressure. Mild aortic valve sclerosis, mild aortic regurgitation. Negative for mitral regurgitation. Mild left atrial dilation Last Edited By: Alexus Herman PA-C on Dec 23, 2016 10:09 Status: Chronic Problem Text: 12/28: acute decompensation yesterday when attempt to use fluid bolus to support hypotension was made. she developed mild dyspnea, cxr showed vascular engorgement, moved to ICU for levophed to address hypotension. 12/23 appears compensated. 12/21 BNP 1541 c mild decompensation-held IVF and amlo 2.5 BID-repeat TTE (7) Hypokalemia Problem Text: 12/27: Potassium of 3.4 today, order placed for 40 meqs of oral KCl 2 doses 12/25: Potassium of 3.1 today. Orders placed for K run 1, 40 meqs of oral KCl 2 doses. Repeat BMP tomorrow. Continue to monitor (8) Seizure disorder Status: Chronic Problem Text: 12/25: CSF PCR negative, repeat CSF Gram stain and culture was negative, anaerobic culture negative, blood culture 1 no growth after 24 hours 12/22: CSF culture did not show any organisms, CSF PCR still pending 12/21/2016: LP completed a 12/20/2016. Patient has some soreness in the back around puncture site. CSF culture pending. 2 focus 2 brain tumor resection 12/[address] head c stable STS/fluid collection seen on 12/18 CT-case dw Dr. Jordan who agrees favors fluid is 2 to necrotic tissue, but given fever/MS change, agrees c LP (as did Dr. Castillo)-case dw c Dr. Arturo Foster who wanted clearance from [facility] 12/19 Dr. Herrera increased leve to 1000 BID given sz episode-partially 2 UTI/hypoNa /? fluid collection 12/19 EEG This EEG in awake, drowsy states, stage 1 and 2 sleep is abnormal due to presence of left temporal intermittent rhythmic delta activity/temporal intermittent rhythmic delta activity (TIRDA) with separate to left central head region consistent with focal cortical structural or functional abnormality with epileptic potential. No clinical or electrographic seizures were recorded. Clinical correlation is recommended. DD: KERRI HERRERA MD 12/20/16 0658 12/18 CT head The patient is status post resection of a left temporal lobe tumor. There is postoperative change in the posterior left temporal lobe with decreased mass effect compared to the previous study. There is increased soft tissue swelling and fluid overlying the craniotomy site. (9) Anemia Status: Chronic Problem Specific Plan: Monitor Clinically Problem Text: 12/29: Hemoglobin stable at at 10.8 12/27: Hemoglobin stable at 10.3 12/25: Hemoglobin stable at 10.5 12/23 - No labs ordered, will obtain. Hgb had trended from 10.8 12/21 to 9.7 12/21/2016: Hemoglobin improving today, 10.8. caution on chronic po steroid (on panto 40 QD for px) 12/20 hgb down to 9.4 (10.2, 11.2)-check HO baseline hgb 12s (12/09 wt 69, 12/20 79) On Supplemental B12 and Iron. 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 Patient was set up for biopsy of the nodule to rule out primary lesion. The nodule could not be biopsied by interventional radiology secondary to size. Dr. Morales noted that the lesion was unlikely a primary metastatic lesion. Patient proceeded to have a biopsy of her brain mass which resulted in glioblastoma. Lung nodule will need to be followed as outpatient. 11/24/2016: I reconfirmed this assessment with Dr. 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 Proceed with brain mass bx and pathology prior to lung nodule eval. 11/17/2016: Pulmonology, informal consult, advised against bronchoscopy. Recommends interventional to see if can get to nodule. Dr. Jordan is requesting that we strongly consider working up this lung nodule while she is in the hospital. He has a strong clinical suspicion that the brain lesion is metastatic. Additionally if she has a primary lung cancer it may change his recommendation to do an excisional bx of the brain lesion which almost assuredly leave her with some weakness and speech deficits. Tomorrow we should contact IR and/or Pulm to see whether CT guided bx or navigational bronchoscopy with bx is the best way to get a sample of this lesion. ------ CT Chest: 14 mm nodule in the anterior segment of the right lower lobe, not present on the comparison study. (13) Brain compression Status: Acute Response to Treatment: Controlled Problem Specific Plan: Monitor Clinically Problem Text: Dr. Jordan, brain edema and swelling treated with the left lateral ventriculostomy on 11/24/16. (14) HTN (hypertension) Status: Chronic Problem Specific Plan: Monitor Clinically Problem Text: BP is well controlled today. Continue current regimen, monitor. (15) CAD (coronary artery disease) Status: Chronic Problem Specific Plan: Monitor Clinically Problem Text: No active symptoms (16) COPD (chronic obstructive pulmonary disease) Status: Chronic Problem Specific Plan: Monitor Clinically Problem Text: Stable (17) Fever Status: Resolved Problem Text: 12/27: Afebrile since 12/24 12/25: MAXIMUM TEMPERATURE yesterday 100.8, afebrile since yesterday at 2300 12/24: Fever recurred, MAXIMUM TEMPERATURE overnight of 103.4 12/23 afebrile since admission 12/22: Patient has been afebrile, MAXIMUM TEMPERATURE 98.7. She will continue on Vanco and meropenem as per infectious disease 12/21 Tm 99.8, WBC stable at 10.6 D1 vanco/shamar (D3 ceftriaxone 2 gm-last dose 12/21) 12/20 LP done 2 persistent fluid collection at craniotomy site, MS change and fever to 100.4: GS -, CX P, 954 WBC (76% PMN), 111 prot, 50 glc (no ho MRSA)- therefore, dw Anna and changed to vanco/shamar (unknown PCN allergy, but tolerated ceftriaxone) 12/20 LA 1.2 (12/19 3.5!) Plan/VTE VTE Prophylaxis Ordered?: Yes (TEDs and SCDs) VTE Exclusion Pharmacological: Bleeding Risk (intracranial procedure) Plan Therapy: PT, OT Anticipated Discharge: Home With Services (based on therapy's recommendation) Family Medicine Attending Note: Patient was seen and examined this morning; she was sleep but oriented to place and year. I discussed her care with MIYA Kelley and I agree with her note above. Head CT is stable. Chest CT shows some pulmonary edema. I discussed her care with Dr. 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 He plans to repeat LP weekly and place a shunt once she is off of antibiotics for 1 week. He states we can expect her mental status to fluctuate due to her hydrocephalus. For pulmonary edema, she was given lasix 20 mg IV x1. She did receive a NS bolus this morning, which may have caused her pulmonary edema. Since lasix, she reports to the nurse that her breathing is improved and she is more alert per nursing. (KES) VS, I&O, 24H, Fishbone Vital Signs/I&O Vital Signs Date Time Temp Pulse Resp B/P (MAP) Pulse Ox O2 Delivery O2 Flow Rate FiO2 12/31/16 08:00 96.7 84 22 90/45 (60) 94 Nasal Cannula 12/31/16 05:00 2.0 I&O- Last 24 Hours up to 6 AM 01/01/17 06:00 Intake Total 500 ml Balance 500 ml Laboratory Data 24H LABS Laboratory Tests 2 12/30/16 17:02: CSF Glucose (Tube 1) TUBE 2, CSF Total Protein (Tube 1) TUBE 2, CSF Glucose 51, CSF Total Protein 79.9H 12/30/16 19:14: C-Reactive Protein, Quantitative 3.13H, Vancomycin Level Trough 32.5*H 12/31/16 05:32: Vancomycin Level Trough 30.1*H, Nucleated Red Blood Cells % (auto) 0.0, Anion Gap 6L, Glomerular Filtration Rate > 60.0, Blood Urea Nitrogen 15, Creatinine 0.61, Sodium Level 141, Potassium Level 3.4L, Chloride Level 105, Carbon Dioxide Level 30, Calcium Level 9.2 CBC/BMP Laboratory Tests 12/31/16 05:32 Red Blood Count 3.75 L, Mean Corpuscular Volume 80.8, Mean Corpuscular Hemoglobin 26.9 L, Mean Corpuscular Hemoglobin Concent 33.3, Red Cell Distribution Width 15.9 H, Calcium Level 9.2 Microbiology Microbiology 12/24/16 Blood Culture - Final, Complete NO GROWTH AFTER 5 DAYS 12/30/16 Gram Stain - Final, Resulted 12/30/16 CSF Culture, Resulted Pending 12/23/16 Gram Stain - Final, Resulted 12/23/16 CSF Culture - Preliminary, Resulted 12/23/16 Anaerobic Culture - Final, Complete Nancy Johns Dec 31, 2016 09:06 KERRI SAWYER MD Dec 31, 2016 16:21
[2016-12-31 09:08] LABS: MAGNESIUM LEVEL 1.8 MG/DL (1.8-2.4)
--- NOTE | 2016-12-31 11:11 | REP ---
CT brain without contrast: History: Altered mental status. The patient is status post left temporal craniotomy for biopsy resection of high-grade glioma. Comparison is made with the most recent prior brain MRI images December 26, [address] study December 24, 2016. Findings: There is a left posterior temporal lobe area of low density at the site of the high-grade glioma and surgical resection. This is unchanged. The appearance of the craniotomy is unchanged. There is some dural calcification adjacent to the anterior edge of the craniotomy site unchanged. No extra-axial fluid collection is seen. There is no evidence of intracranial hemorrhage. There is evidence of diffuse cerebral atrophy. Ventricular size is unchanged. There is a subgaleal fluid collection at the craniotomy site which is smaller. Impression: No new intracranial finding. Ventricular size unchanged. Postoperative changes and low density area left temporal lobe. Signed by Leroy Alexander MD 12/31/2016 11:45 A
--- NOTE | 2016-12-31 11:15 | REP ---
CT CHEST WITHOUT CONTRAST: HISTORY: Altered mental status. History of high-grade glioma of the brain. Comparison study is from November 11, 2016. CT FINDINGS: There is hazy alveolar opacity in the perihilar and upper lobe regions bilaterally consistent with some pulmonary edema. There is an area of discoid atelectasis in the left lower lobe and another in the right. No pleural or pericardial effusion is seen. Coronary artery vascular calcification is observed. Prior median sternotomy wires are seen. No mass lesion is observed. The previously noted 14 mm density in the right lower lobe is again seen, unchanged. This is again noted to have a linear fibrotic appearance rather than a rounded or oval nodule. No lung mass lesion is seen. IMPRESSION: Discoid atelectasis and alveolar opacity, question pulmonary edema. No focal infiltrate seen. Signed by Leroy Alexander MD 12/31/2016 11:45 A
[2016-12-31] MEDS: PANTOPRAZOLE 40MG TAB (PROTONIX) PO SCH (11:56)
[2016-12-31] MEDS: LORATADINE 10 MG TAB PO SCH (11:56)
[2016-12-31] MEDS: MIRALAX *UNIT DOSE* 17GM PACKET PO SCH (11:56)
[2016-12-31] MEDS: BISOPROLOL FUMARATE 5 MG TAB PO SCH ×2 (11:57→20:16)
[2016-12-31] MEDS: CALCIUM/VITAMIN D 500 MG TAB PO SCH ×2 (11:57→20:24)
[2016-12-31] MEDS: CYANOCOBALAMIN 500 MCG TAB PO SCH (11:57)
[2016-12-31] MEDS: NYSTATIN 100,000 UNITS/GM TOPICAL PWD 15 GM TOP SCH ×2 (11:58→20:24)
[2016-12-31] MEDS: FERROUS GLUCONATE 324 MG TAB PO SCH (11:58)
[2016-12-31] MEDS: levETIRAcetam 250MG TABLET (KEPPRA) PO SCH ×2 (11:58→20:24)
[2016-12-31] MEDS ORDERED: FUROSEMIDE 20 MG/2 ML VIAL (J1940) IV ONE (13:00)
--- NOTE | 2016-12-31 18:31 | PHACANCOPD ---
PHARMACY VANCOMYCIN DOSING Pt Demographics Demographics Patient Age:76 , Weight:73.900 , Gender: female Adjusted Body Weight Date: 12/21/16, Adjusted Body Weight: Kg Vancomycin Vancomycin Target Ranges: 15-20 mcg/ml Vancomycin Load Y/N: No Load Dose Date Time Vancomycin Load Dose: Date: Time: Vancomycin Dose Date: 12/21/16. Current Vancomycin Dose: [1000MG Q12H] Intermittent Dosing?: No Labs Micro Microbiology 12/24/16 Blood Culture - Final, Complete NO GROWTH AFTER 5 DAYS 12/30/16 Gram Stain - Final, Resulted 12/30/16 CSF Culture, Resulted Pending 12/23/16 Gram Stain - Final, Resulted 12/23/16 CSF Culture - Preliminary, Resulted 12/23/16 Anaerobic Culture - Final, Complete Creatinine Clearance Date:12/21/16. Creatinine Clearance: [75].LIKELY LESS THAN THIS Pending Labs Trough - @1700 Assessment and Plan Maintaining Current Dose?: No Reason for dose change: Trough too high Pharmacist Note Pharmacist Note 12/31/16: 24hr trough level this morning resulted at 30.1mcg/ml. 36hr trough level this evening resulted at 27.7mcg/ml. Vancomycin will remain on hold. Another follow-up vancomycin level has been scheduled to be drawn tomorrow, @1700, ~60hrs since the last vancomycin dose was given. We will follow-up and make further adjustments/schedule further levels if needed. Anticipated therapy stop date is 01/03/17. 12/30/16: Trough level tonight resulted at 32.5mcg/ml. Vancomycin is currently on hold. A follow-up vancomycin trough is scheduled to be drawn tomorrow morning , 12/30/16 @0500, 24hrs after the last dose. We will resume vancomycin therapy when the patient is back within therapeutic range, and continue to monitor until then. 12/22/16: Trough drawn@1653 before 3rd dose came back @ 12.3mcg.ml. Patient has only received 2 doses and is not yet at steady state. I will maintain current dose and schedule another trough for tomorrow. We will continue to monitor and adjust dose as needed. Date: 12/21/16. Pharmacist note:Dosed at 1000mg q12h with a trough ordered for 12-22 @1700. Will continue to monitor and make adjustments as needed. [facility] Dec 31, 2016 18:31
[2016-12-31] MEDS: OLANZapine 2.5MG TABLET PO SCH (20:24)
[2016-12-31] MEDS: ROSUVASTATIN 10 MG TAB (CRESTOR) PO SCH (20:24)
[2017-01-01 04:00] VITALS: BP 107/60
[2017-01-01 05:52] LABS: MEAN CORPUSCULAR HEMOGLOBIN 27.2 pg (27.0-33.0); MEAN CORPUSCULAR HGB CONC 33.6 g/dl (32.0-36.5); MEAN CORPUSCULAR VOLUME 81.1 fl (80.0-96.0); PLATELET COUNT, AUTOMATED 235 10^3/uL (150-450); RED CELL DISTRIBUTION WIDTH 15.7 % (11.5-14.5); WHITE BLOOD COUNT 5.5 10^3/uL (4.0-10.0)
[2017-01-01] MEDS: SLF 3 ML SYR IV SCH ×3 (06:00→21:10)
[2017-01-01] MEDS: SODIUM CHLORIDE 0.9% INJ 10 ML SYR IV SCH ×3 (06:11→21:10)
[2017-01-01 06:13] LABS: ANION GAP 6 MEQ/L (8-16); BLOOD UREA NITROGEN 14 MG/DL (7-18); CALCIUM LEVEL 9.1 MG/DL (8.8-10.2); CARBON DIOXIDE LEVEL 30 MEQ/L (21-32); CHLORIDE LEVEL 105 MEQ/L (98-107); CREATININE FOR GFR 0.51 MG/DL (0.55-1.02); GLOMERULAR FILTRATION RATE > 60.0 (>39); GLUCOSE, FASTING 101 MG/DL (83-110); POTASSIUM SERUM 3.2 MEQ/L (3.5-5.1); SODIUM LEVEL 141 MEQ/L (136-145)
[2017-01-01 08:00] VITALS: BP 116/70
[2017-01-01] MEDS: MEROPENEM INJ 2 GM in NS 100 ML IV SCH (08:47)
[2017-01-01] MEDS: ADVAIR HFA 115/21MCG INHALER INH SCH ×2 (09:14→20:13)
[2017-01-01] MEDS: NYSTATIN 100,000 UNITS/GM TOPICAL PWD 15 GM TOP SCH ×2 (09:18→21:09)
[2017-01-01] MEDS: CALCIUM/VITAMIN D 500 MG TAB PO SCH ×2 (09:18→21:09)
[2017-01-01] MEDS: levETIRAcetam 250MG TABLET (KEPPRA) PO SCH ×2 (09:18→21:09)
[2017-01-01] MEDS: LORATADINE 10 MG TAB PO SCH (09:18)
[2017-01-01] MEDS: CYANOCOBALAMIN 500 MCG TAB PO SCH (09:20)
[2017-01-01] MEDS: BISOPROLOL FUMARATE 5 MG TAB PO SCH ×2 (09:20→20:56)
[2017-01-01] MEDS: FERROUS GLUCONATE 324 MG TAB PO SCH (09:20)
[2017-01-01] MEDS: PANTOPRAZOLE 40MG TAB (PROTONIX) PO SCH (09:20)
[2017-01-01] MEDS: MIRALAX *UNIT DOSE* 17GM PACKET PO SCH (09:25)
[2017-01-01 12:00] VITALS: BP 103/62
[2017-01-01] MEDS: POTASSIUM CHLORIDE 10 MEQ SR TABLET PO SCH ×2 (12:20→15:45)
--- NOTE | 2017-01-01 14:32 | IPNPDOC ---
Subjective Date Seen The patient was seen on 01/01/17. Subjective Chief Complaint/HPI The patient is a 76-year-old female admitted with a reason for visit of Brain Mass. Events since last encounter Patient states that she is doing okay today. She does not have any acute concerns. Constitutional: Denies: Chills, Fever ENT: Denies: Other Symptoms (headache) Pulmonary: Denies: Dyspnea Cardiovascular: Denies: Chest Pain Objective Physical Examination General Exam: Positive: No Acute Distress Chest Exam: Positive: Clear to auscultation, Normal air movement, Negative: Rales, Rhonchi, Wheezing Heart Exam: Positive: Rate Normal, Irregular Rhythm, Normal S1, Normal S2, Negative: Gallops, Murmurs, Rubs Telemetry: Positive: Atrial fibrillation Abdomen Exam: Positive: Normal bowel sounds, Soft, Negative: Tenderness, Hepatospenomegaly, Mass Extremity Exam: Negative: Edema Assessment /Plan Problems (1) Hypotension Status: Acute Response to Treatment: Stable Problem Text: 01/01: Blood pressure 103/62 today, lowest blood pressure over last 24 hours 90/50. Patient has been stable for about the last 24 hours. Continue dexamethasone. 12/31/2016: soft BP this am 94/50. 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 IV Meropenem and Vancomycin until 01/03/17. 12/29: Patient maintaining blood pressure without levophed. She did have some lower blood pressures around 1:00 this afternoon, she will remain in ICU through tomorrow. If she maintains her blood pressure, does not require restarting of pressors, she may be able to be transferred to PCU tomorrow. If patient does drop her blood pressure, hypotension may be secondary to pituitary dysfunction, consider trial of hydrocortisone 12/28: maintaining bp with 5mcg levophed, CVP 7. Rhythm varies between sinus and afib 12/28: BP down, respiratory difficulties with fluid challenge. Back to ICU with Levophed initiated. New lactic acid ordered stat and for 4 hours. Will check CVP as another indicator of volume status. Code status still Full Code. 12/27: Resolved, patient stable in PCU off of pressors. Continue to monitor for recurrence. 12/25: Patient required initiation of norepinephrine overnight. Blood pressure stable on norepinephrine. A discussion was had with the family regarding her current situation, they were made aware of her recent deterioration. She will remain a full code at this time, family will discuss her further care amongst themselves. 12/24: Developed septic shock today, T-max overnight of 103.4, hypotension with blood pressure as low as 76/42. Patient was given a 30 mL per KG fluid bolus. Patient was transferred to ICU and intensive care was consulted. (3) Meningitis Status: Acute Response to Treatment: Stable, Improving Discussed With: Nurse, Patient Problem Specific Plan: Consult Specialist, Monitor Clinically, Repeat Labs Problem Text: 01/01: Continue Vanco and meropenem until 01/03/17 12/30/2016: see ID note. IV Meropenem and Vancomycin until 01/03/17. 12/28 continue vancomycin and meropenem 12/27: As per infectious disease patient will continue on Vanco and meropenem for a treatment duration of 2 weeks 12/25: CSF PCR negative, repeat CSF Gram stain and culture was negative, anaerobic culture negative, blood culture 1 no growth after 24 hours 12/24: Patient had drain of scalp swelling yesterday which was consistent CSF, showing 718 white blood cells, 95% PMNs, glucose of 15, total protein of 82. She is concurrently being managed by infectious disease, she will continue on vancomycin and meropenem. 12/23: Pt with Nosocomial meningitis, she is being followed by ID. She has had LP with pleocytosis and neutrophils, her T protein is elevated. her cultures have been Neg but she had received Rocephin prior to LP being performed. Vanco/ Meropenam dosing per ID. (4) Altered mental status Problem Text: 01/01: Patient initially sleepy but arousable on examination. Verbal and able to answer questions. Her changes in mental status appear to be secondary to her neurological condition. 12/31: Change in responsiveness compared to yesterday. CT head and chest today. Dr. Jordan, notified and will eval patient. (5) Glioblastoma multiforme Status: Chronic Problem Text: 11/24/16 sp Stent-based frameless stereotactic left posterior temporal-parietal craniotomy with microsurgical resection of large mass, cranioplasty, and marked brain edema and swelling treated with the left lateral ventriculostomy for Left temporal-parietal GBM with brain swelling by Dr. Jordan (6) Diastolic congestive heart failure Permanent Comment: 12/22/16: Echocardiogram showed hyperdynamic left ventricular systolic function, LVEF 75%, atrial flutter. Moderate elevation of pulmonary artery systolic pressure. Mild aortic valve sclerosis, mild aortic regurgitation. Negative for mitral regurgitation. Mild left atrial dilation Last Edited By: Alexus Herman PA-C on Dec 23, 2016 10:09 Status: Chronic Problem Text: 12/28: acute decompensation yesterday when attempt to use fluid bolus to support hypotension was made. she developed mild dyspnea, cxr showed vascular engorgement, moved to ICU for levophed to address hypotension. 12/23 appears compensated. 12/21 BNP 1541 c mild decompensation-held IVF and amlo 2.5 BID-repeat TTE (7) Hypokalemia Problem Text: 01/01: Potassium of 3.2 today, order placed for KCl 40 meqs 2 doses 12/27: Potassium of 3.4 today, order placed for 40 meqs of oral KCl 2 doses 12/25: Potassium of 3.1 today. Orders placed for K run 1, 40 meqs of oral KCl 2 doses. Repeat BMP tomorrow. Continue to monitor (8) Seizure disorder Status: Chronic Problem Text: 12/25: CSF PCR negative, repeat CSF Gram stain and culture was negative, anaerobic culture negative, blood culture 1 no growth after 24 hours 12/22: CSF culture did not show any organisms, CSF PCR still pending 12/21/2016: LP completed a 12/20/2016. Patient has some soreness in the back around puncture site. CSF culture pending. 2 focus 2 brain tumor resection 12/[address] head c stable STS/fluid collection seen on 12/18 CT-case dw Dr. Jordan who agrees favors fluid is 2 to necrotic tissue, but given fever/MS change, agrees c LP (as did Dr. Castillo)-case dw c Dr. Arturo Foster who wanted clearance from [facility] 12/19 Dr. eHrrera increased leve to 1000 BID given sz episode-partially 2 UTI/hypoNa /? fluid collection 12/19 EEG This EEG in awake, drowsy states, stage 1 and 2 sleep is abnormal due to presence of left temporal intermittent rhythmic delta activity/temporal intermittent rhythmic delta activity (TIRDA) with separate to left central head region consistent with focal cortical structural or functional abnormality with epileptic potential. No clinical or electrographic seizures were recorded. Clinical correlation is recommended. DD: KERRI HERRERA MD 12/20/16 0658 12/18 CT head The patient is status post resection of a left temporal lobe tumor. There is postoperative change in the posterior left temporal lobe with decreased mass effect compared to the previous study. There is increased soft tissue swelling and fluid overlying the craniotomy site. (9) Anemia Status: Chronic Problem Specific Plan: Monitor Clinically Problem Text: 01/01: Hemoglobin stable at 9.8 12/29: Hemoglobin stable at 10.8 12/27: Hemoglobin stable at 10.3 12/25: Hemoglobin stable at 10.5 12/23 - No labs ordered, will obtain. Hgb had trended from 10.8 12/21 to 9.7 12/21/2016: Hemoglobin improving today, 10.8. caution on chronic po steroid (on panto 40 QD for px) 12/20 hgb down to 9.4 (10.2, 11.2)-check HO baseline hgb 12s (12/09 wt 69, 12/20 79) On Supplemental B12 and Iron. 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 Patient was set up for biopsy of the nodule to rule out primary lesion. The nodule could not be biopsied by interventional radiology secondary to size. Dr. Morales noted that the lesion was unlikely a primary metastatic lesion. Patient proceeded to have a biopsy of her brain mass which resulted in glioblastoma. Lung nodule will need to be followed as outpatient. 11/24/2016: I reconfirmed this assessment with Dr. 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 (medical esthetician) 11/19/16: Per Interventional Rad: most likely not a primary. Proceed with brain mass bx and pathology prior to lung nodule eval. 11/17/2016: Pulmonology, informal consult, advised against bronchoscopy. Recommends interventional to see if can get to nodule. Dr. Jordan is requesting that we strongly consider working up this lung nodule while she is in the hospital. He has a strong clinical suspicion that the brain lesion is metastatic. Additionally if she has a primary lung cancer it may change his recommendation to do an excisional bx of the brain lesion which almost assuredly leave her with some weakness and speech deficits. Tomorrow we should contact IR and/or Pulm to see whether CT guided bx or navigational bronchoscopy with bx is the best way to get a sample of this lesion. ------ CT Chest: 14 mm nodule in the anterior segment of the right lower lobe, not present on the comparison study. (13) Brain compression Status: Acute Response to Treatment: Controlled Problem Specific Plan: Monitor Clinically Problem Text: Dr. Jordan, brain edema and swelling treated with the left lateral ventriculostomy on 11/24/16. (14) HTN (hypertension) Status: Chronic Problem Specific Plan: Monitor Clinically Problem Text: BP is well controlled today. Continue current regimen, monitor. (15) CAD (coronary artery disease) Status: Chronic Problem Specific Plan: Monitor Clinically Problem Text: No active symptoms (16) COPD (chronic obstructive pulmonary disease) Status: Chronic Problem Specific Plan: Monitor Clinically Problem Text: Stable (17) Fever Status: Resolved Problem Text: 12/27: Afebrile since 12/24 12/25: MAXIMUM TEMPERATURE yesterday 100.8, afebrile since yesterday at 2300 12/24: Fever recurred, MAXIMUM TEMPERATURE overnight of 103.4 12/23 afebrile since admission 12/22: Patient has been afebrile, MAXIMUM TEMPERATURE 98.7. She will continue on Vanco and meropenem as per infectious disease 12/21 Tm 99.8, WBC stable at 10.6 D1 vanco/shamar (D3 ceftriaxone 2 gm-last dose 12/21) 12/20 LP done 2 persistent fluid collection at craniotomy site, MS change and fever to 100.4: GS -, CX P, 954 WBC (76% PMN), 111 prot, 50 glc (no ho MRSA)- therefore, dw Anna and changed to vanco/shamar (unknown PCN allergy, but tolerated ceftriaxone) 12/20 LA 1.2 (12/19 3.5!) Plan/VTE VTE Prophylaxis Ordered?: Yes (TEDs and SCDs) VTE Exclusion Pharmacological: Bleeding Risk (intracranial procedure) Plan Therapy: PT, OT Anticipated Discharge: Home With Services (based on therapy's recommendation) VS, I&O, 24H, Fishbone Vital Signs/I&O Vital Signs Date Time Temp Pulse Resp B/P (MAP) Pulse Ox O2 Delivery O2 Flow Rate FiO2 01/01/17 12:15 Nasal Cannula 2.0 01/01/17 12:00 96.9 92 22 103/62 (76) 98 I&O- Last 24 Hours up to 6 AM 01/02/17 06:00 Intake Total 100 ml Output Total 500 ml Balance -400 ml Laboratory Data 24H LABS Laboratory Tests 2 12/31/16 17:25: Random Vancomycin Level 27.7 01/01/17 05:28: Nucleated Red Blood Cells % (auto) 0.0, Anion Gap 6L, Glomerular Filtration Rate > 60.0, Blood Urea Nitrogen 14, Creatinine 0.51L, Sodium Level 141, Potassium Level 3.2L, Chloride Level 105, Carbon Dioxide Level 30, Calcium Level 9.1 CBC/BMP Laboratory Tests 01/01/17 05:28 Red Blood Count 3.60 L, Mean Corpuscular Volume 81.1, Mean Corpuscular Hemoglobin 27.2, Mean Corpuscular Hemoglobin Concent 33.6, Red Cell Distribution Width 15.7 H, Calcium Level 9.1 Microbiology Microbiology 12/24/16 Blood Culture - Final, Complete NO GROWTH AFTER 5 DAYS 12/30/16 Gram Stain - Final, Complete 12/30/16 CSF Culture - Final, Complete 12/23/16 Gram Stain - Final, Resulted 12/23/16 CSF Culture - Preliminary, Resulted 12/23/16 Anaerobic Culture - Final, Complete GME ATTESTATION GME ATTESTATION My faculty preceptor for this patient encounter was physically present during the encounter and was fully available. All aspects of the patient interview, examination, medical decision making process, and medical care plan development were reviewed and approved by the faculty preceptor. The faculty preceptor is aware and concurs with the plan as stated in the body of this note and will attest to such by his/her cosignature. ATTENDING NOTE I saw Ms. Santos this morning; I discussed her care with Dr. Garay and I agree with his note as documented above. The patient was sleepy but arousable this morning, and was oriented to person and place. Her mental status will likely continue to fluctuate due to her hydrocephalus per Neurosurgery. (KES) EMMA GARAY DO Jan 01, 2017 14:32 KERRI SAWYER MD Jan 01, 2017 15:07
[2017-01-01] MEDS: MEROPENEM INJ 1 GM in APPROPRIATE DILUENT 1 EA IV SCH ×3 (15:46→23:54)
[2017-01-01 16:00] VITALS: BP 124/69
[2017-01-01] MEDS: ONDANSETRON 4 MG ORAL DISINTEGRATING TAB (S0181) PO PRN (16:59)
[2017-01-01 20:00] VITALS: BP 94/52
[2017-01-01] MEDS ORDERED: VANCOMYCIN HCL 1,000 MG, VIAL MATE ADAPTER 1 EACH in D5W 250 ML IV SCH (21:00)
[2017-01-01] MEDS: ROSUVASTATIN 10 MG TAB (CRESTOR) PO SCH (21:09)
[2017-01-01] MEDS: OLANZapine 2.5MG TABLET PO SCH (21:09)
[2017-01-02] VITALS (7 sets, daily range): BP systolic 98–123; BP diastolic 48–81
[2017-01-02] MEDS: MEROPENEM INJ 1 GM in APPROPRIATE DILUENT 1 EA IV SCH ×6 (00:34→23:31)
[2017-01-02] MEDS: SLF 3 ML SYR IV SCH ×2 (05:23→17:29)
[2017-01-02 05:25] LABS: MEAN CORPUSCULAR HEMOGLOBIN 26.7 pg (27.0-33.0); MEAN CORPUSCULAR HGB CONC 32.4 g/dl (32.0-36.5); MEAN CORPUSCULAR VOLUME 82.5 fl (80.0-96.0); PLATELET COUNT, AUTOMATED 236 10^3/uL (150-450); RED CELL DISTRIBUTION WIDTH 15.9 % (11.5-14.5); WHITE BLOOD COUNT 5.3 10^3/uL (4.0-10.0)
[2017-01-02] MEDS: SODIUM CHLORIDE 0.9% INJ 10 ML SYR IV SCH ×3 (05:36→21:59)
[2017-01-02 05:38] LABS: ANION GAP 3 MEQ/L (8-16); BLOOD UREA NITROGEN 15 MG/DL (7-18); CALCIUM LEVEL 9.9 MG/DL (8.8-10.2); CARBON DIOXIDE LEVEL 33 MEQ/L (21-32); CHLORIDE LEVEL 105 MEQ/L (98-107); CREATININE FOR GFR 0.51 MG/DL (0.55-1.02); GLOMERULAR FILTRATION RATE > 60.0 (>39); GLUCOSE, FASTING 119 MG/DL (83-110); POTASSIUM SERUM 4.3 MEQ/L (3.5-5.1); SODIUM LEVEL 141 MEQ/L (136-145)
[2017-01-02] MEDS: ADVAIR HFA 115/21MCG INHALER INH SCH ×2 (08:04→21:00)
[2017-01-02] MEDS: BISOPROLOL FUMARATE 5 MG TAB PO SCH ×2 (09:00→21:58)
[2017-01-02] MEDS: ONDANSETRON 4 MG ORAL DISINTEGRATING TAB (S0181) PO PRN (09:16)
[2017-01-02] MEDS: MIRALAX *UNIT DOSE* 17GM PACKET PO SCH (09:17)
[2017-01-02] MEDS: PANTOPRAZOLE 40MG TAB (PROTONIX) PO SCH (09:21)
[2017-01-02] MEDS: LORATADINE 10 MG TAB PO SCH (09:22)
[2017-01-02] MEDS: FERROUS GLUCONATE 324 MG TAB PO SCH (09:23)
[2017-01-02] MEDS: levETIRAcetam 250MG TABLET (KEPPRA) PO SCH ×2 (09:23→21:53)
[2017-01-02] MEDS: CYANOCOBALAMIN 500 MCG TAB PO SCH (09:25)
[2017-01-02] MEDS: CALCIUM/VITAMIN D 500 MG TAB PO SCH ×2 (09:27→21:59)
[2017-01-02] MEDS: NYSTATIN 100,000 UNITS/GM TOPICAL PWD 15 GM TOP SCH ×2 (09:28→21:59)
--- NOTE | 2017-01-02 13:19 | IPNPDOC ---
Subjective Date Seen The patient was seen on 01/02/17. Subjective Chief Complaint/HPI The patient is a 76-year-old female admitted with a reason for visit of Brain Mass. Events since last encounter Patient does not have any acute concerns today. When questioned about any difficulty eating she does mention that she is having some food come back up on her. Constitutional: Denies: Chills, Fever ENT: Denies: Head Aches Pulmonary: Denies: Dyspnea Cardiovascular: Denies: Chest Pain Gastrointestinal: Denies: Abdominal Pain Objective Physical Examination General Exam: Positive: No Acute Distress Chest Exam: Positive: Clear to auscultation, Normal air movement, Negative: Rales, Rhonchi, Wheezing Heart Exam: Positive: Rate Normal, Irregular Rhythm, Normal S1, Normal S2, Negative: Gallops, Murmurs, Rubs Telemetry: Positive: Atrial fibrillation Abdomen Exam: Positive: Normal bowel sounds, Soft, Negative: Tenderness, Hepatospenomegaly, Mass Extremity Exam: Negative: Edema Assessment /Plan Problems (1) Hypotension Status: Acute Response to Treatment: Stable Problem Text: 01/02: Blood pressure stable at 108/57 today, continue dexamethasone 01/01: Blood pressure 103/62 today, lowest blood pressure over last 24 hours 90/ 50. Patient has been stable for about the last 24 hours. Continue dexamethasone. 12/31/2016: soft BP this am 94/50. 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 IV Meropenem and Vancomycin until 01/03/17. 12/29: Patient maintaining blood pressure without levophed. She did have some lower blood pressures around 1:00 this afternoon, she will remain in ICU through tomorrow. If she maintains her blood pressure, does not require restarting of pressors, she may be able to be transferred to PCU tomorrow. If patient does drop her blood pressure, hypotension may be secondary to pituitary dysfunction, consider trial of hydrocortisone 12/28: maintaining bp with 5mcg levophed, CVP 7. Rhythm varies between sinus and afib 12/28: BP down, respiratory difficulties with fluid challenge. Back to ICU with Levophed initiated. New lactic acid ordered stat and for 4 hours. Will check CVP as another indicator of volume status. Code status still Full Code. 12/27: Resolved, patient stable in PCU off of pressors. Continue to monitor for recurrence. 12/25: Patient required initiation of norepinephrine overnight. Blood pressure stable on norepinephrine. A discussion was had with the family regarding her current situation, they were made aware of her recent deterioration. She will remain a full code at this time, family will discuss her further care amongst themselves. 12/24: Developed septic shock today, T-max overnight of 103.4, hypotension with blood pressure as low as 76/42. Patient was given a 30 mL per KG fluid bolus. Patient was transferred to ICU and intensive care was consulted. (3) Meningitis Status: Acute Response to Treatment: Stable, Improving Discussed With: Nurse, Patient Problem Specific Plan: Consult Specialist, Monitor Clinically, Repeat Labs Problem Text: 01/01: Continue Vanco and meropenem until 01/03/17 12/30/2016: see ID note. IV Meropenem and Vancomycin until 01/03/17. 12/28 continue vancomycin and meropenem 12/27: As per infectious disease patient will continue on Vanco and meropenem for a treatment duration of 2 weeks 12/25: CSF PCR negative, repeat CSF Gram stain and culture was negative, anaerobic culture negative, blood culture 1 no growth after 24 hours 12/24: Patient had drain of scalp swelling yesterday which was consistent CSF, showing 718 white blood cells, 95% PMNs, glucose of 15, total protein of 82. She is concurrently being managed by infectious disease, she will continue on vancomycin and meropenem. 12/23: Pt with Nosocomial meningitis, she is being followed by ID. She has had LP with pleocytosis and neutrophils, her T protein is elevated. her cultures have been Neg but she had received Rocephin prior to LP being performed. Vanco/ Meropenam dosing per ID. (4) Altered mental status Problem Text: 01/02: Patient easily arousable today, verbal and able to answer questions appropriately 01/01: Patient initially sleepy but arousable on examination. Verbal and able to answer questions. Her changes in mental status appear to be secondary to her neurological condition. 12/31: Change in responsiveness compared to yesterday. CT head and chest today. Dr. Jordan, notified and will eval patient. (5) Regurgitation of food Problem Text: 01/02: There was concern raised by neurosurgery that patient may be having food regurgitation. Order placed for speech therapy evaluation for a swallowing study. (6) Glioblastoma multiforme Status: Chronic Problem Text: 11/24/16 sp Stent-based frameless stereotactic left posterior temporal-parietal craniotomy with microsurgical resection of large mass, cranioplasty, and marked brain edema and swelling treated with the left lateral ventriculostomy for Left temporal-parietal GBM with brain swelling by Dr. Jordan (7) Diastolic congestive heart failure Permanent Comment: 12/22/16: Echocardiogram showed hyperdynamic left ventricular systolic function, LVEF 75%, atrial flutter. Moderate elevation of pulmonary artery systolic pressure. Mild aortic valve sclerosis, mild aortic regurgitation. Negative for mitral regurgitation. Mild left atrial dilation Last Edited By: Alexus Herman PA-C on Dec 23, 2016 10:09 Status: Chronic Problem Text: 12/28: acute decompensation yesterday when attempt to use fluid bolus to support hypotension was made. she developed mild dyspnea, cxr showed vascular engorgement, moved to ICU for levophed to address hypotension. 12/23 appears compensated. 12/21 BNP 1541 c mild decompensation-held IVF and amlo 2.5 BID-repeat TTE (8) Hypokalemia Problem Text: 01/02: Potassium of 4.3 today, continue to monitor 01/01: Potassium of 3.2 today, order placed for KCl 40 meqs 2 doses 12/27: Potassium of 3.4 today, order placed for 40 meqs of oral KCl 2 doses 12/25: Potassium of 3.1 today. Orders placed for K run 1, 40 meqs of oral KCl 2 doses. Repeat BMP tomorrow. Continue to monitor (9) Seizure disorder Status: Chronic Problem Text: 12/25: CSF PCR negative, repeat CSF Gram stain and culture was negative, anaerobic culture negative, blood culture 1 no growth after 24 hours 12/22: CSF culture did not show any organisms, CSF PCR still pending 12/21/2016: LP completed a 12/20/2016. Patient has some soreness in the back around puncture site. CSF culture pending. 2 focus 2 brain tumor resection 12/[address] head c stable STS/fluid collection seen on 12/18 CT-case dw Dr. Jordan who agrees favors fluid is 2 to necrotic tissue, but given fever/MS change, agrees c LP (as did Dr. Castillo)-case dw c Dr. Arturo Foster who wanted clearance from [facility] 12/19 Dr. Herrera increased leve to 1000 BID given sz episode-partially 2 UTI/hypoNa /? fluid collection 12/19 EEG This EEG in awake, drowsy states, stage 1 and 2 sleep is abnormal due to presence of left temporal intermittent rhythmic delta activity/temporal intermittent rhythmic delta activity (TIRDA) with separate to left central head region consistent with focal cortical structural or functional abnormality with epileptic potential. No clinical or electrographic seizures were recorded. Clinical correlation is recommended. DD: KERRI HERRERA MD 12/20/16 0658 12/18 CT head The patient is status post resection of a left temporal lobe tumor. There is postoperative change in the posterior left temporal lobe with decreased mass effect compared to the previous study. There is increased soft tissue swelling and fluid overlying the craniotomy site. (10) Anemia Status: Chronic Problem Specific Plan: Monitor Clinically Problem Text: 01/01: Hemoglobin stable at 9.8 12/29: Hemoglobin stable at 10.8 12/27: Hemoglobin stable at 10.3 12/25: Hemoglobin stable at 10.5 12/23 - No labs ordered, will obtain. Hgb had trended from 10.8 12/21 to 9.7 12/21/2016: Hemoglobin improving today, 10.8. caution on chronic po steroid (on panto 40 QD for px) 12/20 hgb down to 9.4 (10.2, 11.2)-check HO baseline hgb 12s (12/09 wt 69, 12/20 79) On Supplemental B12 and Iron. 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 Patient was set up for biopsy of the nodule to rule out primary lesion. The nodule could not be biopsied by interventional radiology secondary to size. Dr. Morales noted that the lesion was unlikely a primary metastatic lesion. Patient proceeded to have a biopsy of her brain mass which resulted in glioblastoma. Lung nodule will need to be followed as outpatient. 11/24/2016: I reconfirmed this assessment with Dr. 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 (tools programmer) 11/19/16: Per Interventional Rad: most likely not a primary. Proceed with brain mass bx and pathology prior to lung nodule eval. 11/17/2016: Pulmonology, informal consult, advised against bronchoscopy. Recommends interventional to see if can get to nodule. Dr. Jordan is requesting that we strongly consider working up this lung nodule while she is in the hospital. He has a strong clinical suspicion that the brain lesion is metastatic. Additionally if she has a primary lung cancer it may change his recommendation to do an excisional bx of the brain lesion which almost assuredly leave her with some weakness and speech deficits. Tomorrow we should contact IR and/or Pulm to see whether CT guided bx or navigational bronchoscopy with bx is the best way to get a sample of this lesion. ------ CT Chest: 14 mm nodule in the anterior segment of the right lower lobe, not present on the comparison study. (14) Brain compression Status: Acute Response to Treatment: Controlled Problem Specific Plan: Monitor Clinically Problem Text: Dr. Jordan, brain edema and swelling treated with the left lateral ventriculostomy on 11/24/16. (15) HTN (hypertension) Status: Chronic Problem Specific Plan: Monitor Clinically Problem Text: BP is well controlled today. Continue current regimen, monitor. (16) CAD (coronary artery disease) Status: Chronic Problem Specific Plan: Monitor Clinically Problem Text: No active symptoms (17) COPD (chronic obstructive pulmonary disease) Status: Chronic Problem Specific Plan: Monitor Clinically Problem Text: Stable (18) Fever Status: Resolved Problem Text: 12/27: Afebrile since 12/24 12/25: MAXIMUM TEMPERATURE yesterday 100.8, afebrile since yesterday at 2300 12/24: Fever recurred, MAXIMUM TEMPERATURE overnight of 103.4 12/23 afebrile since admission 12/22: Patient has been afebrile, MAXIMUM TEMPERATURE 98.7. She will continue on Vanco and meropenem as per infectious disease 12/21 Tm 99.8, WBC stable at 10.6 D1 vanco/shamar (D3 ceftriaxone 2 gm-last dose 12/21) 12/20 LP done 2 persistent fluid collection at craniotomy site, MS change and fever to 100.4: GS -, CX P, 954 WBC (76% PMN), 111 prot, 50 glc (no ho MRSA)- therefore, dw Anna and changed to vanco/shamar (unknown PCN allergy, but tolerated ceftriaxone) 12/20 LA 1.2 (12/19 3.5!) Plan/VTE VTE Prophylaxis Ordered?: Yes (TEDs and SCDs) VTE Exclusion Pharmacological: Bleeding Risk (intracranial procedure) Plan Therapy: PT, OT Anticipated Discharge: Home With Services (based on therapy's recommendation) Patient was seen and examined by myself and his care was reviewed with the resident physician on service VS, I&O, 24H, Viviana Vital Signs/I&O Vital Signs Date Time Temp Pulse Resp B/P (MAP) Pulse Ox O2 Delivery O2 Flow Rate FiO2 01/02/17 09:00 90 108/57 01/02/17 08:16 Nasal Cannula 1.0 01/02/17 08:00 96.8 18 98 I&O- Last 24 Hours up to 6 AM 01/03/17 06:00 Output Total 975 ml Balance -975 ml Laboratory Data 24H LABS Laboratory Tests 2 01/01/17 17:12: Vancomycin Level Trough 19.2 01/02/17 05:01: Nucleated Red Blood Cells % (auto) 0.0, Anion Gap 3L, Glomerular Filtration Rate > 60.0, Blood Urea Nitrogen 15, Creatinine 0.51L, Sodium Level 141, Potassium Level 4.3#, Chloride Level 105, Carbon Dioxide Level 33H, Calcium Level 9.9 CBC/BMP Laboratory Tests 01/02/17 05:01 Red Blood Count 3.78 L, Mean Corpuscular Volume 82.5, Mean Corpuscular Hemoglobin 26.7 L, Mean Corpuscular Hemoglobin Concent 32.4, Red Cell Distribution Width 15.9 H, Calcium Level 9.9 Microbiology Microbiology 12/24/16 Blood Culture - Final, Complete NO GROWTH AFTER 5 DAYS 12/30/16 Gram Stain - Final, Complete 12/30/16 CSF Culture - Final, Complete 12/23/16 Gram Stain - Final, Complete 12/23/16 CSF Culture - Final, Complete Propionibacterium Acnes 12/23/16 Anaerobic Culture - Final, Complete GME ATTESTATION GME ATTESTATION My faculty preceptor for this patient encounter was physically present during the encounter and was fully available. All aspects of the patient interview, examination, medical decision making process, and medical care plan development were reviewed and approved by the faculty preceptor. The faculty preceptor is aware and concurs with the plan as stated in the body of this note and will attest to such by his/her cosignature. EMMA DUFFY DO Jan 02, 2017 13:19 Bam Palomo M.D. Jan 02, 2017 16:43
[2017-01-02] MEDS: ROSUVASTATIN 10 MG TAB (CRESTOR) PO SCH (21:54)
[2017-01-02] MEDS: OLANZapine 2.5MG TABLET PO SCH (21:54)
[2017-01-03] MEDS: MEROPENEM INJ 1 GM in APPROPRIATE DILUENT 1 EA IV SCH ×5 (00:05→17:07)
[2017-01-03 04:00] VITALS: BP 118/78
[2017-01-03] MEDS: SODIUM CHLORIDE 0.9% INJ 10 ML SYR IV SCH ×3 (05:07→21:14)
[2017-01-03 05:25] LABS: MEAN CORPUSCULAR HEMOGLOBIN 26.6 pg (27.0-33.0); MEAN CORPUSCULAR HGB CONC 32.2 g/dl (32.0-36.5); MEAN CORPUSCULAR VOLUME 82.6 fl (80.0-96.0); PLATELET COUNT, AUTOMATED 242 10^3/uL (150-450); RED CELL DISTRIBUTION WIDTH 15.9 % (11.5-14.5); WHITE BLOOD COUNT 6.2 10^3/uL (4.0-10.0)
[2017-01-03 05:45] LABS: ANION GAP 4 MEQ/L (8-16); BLOOD UREA NITROGEN 15 MG/DL (7-18); CALCIUM LEVEL 9.7 MG/DL (8.8-10.2); CARBON DIOXIDE LEVEL 35 MEQ/L (21-32); CHLORIDE LEVEL 102 MEQ/L (98-107); CREATININE FOR GFR 0.44 MG/DL (0.55-1.02); GLOMERULAR FILTRATION RATE > 60.0 (>39); GLUCOSE, FASTING 117 MG/DL (83-110); SODIUM LEVEL 141 MEQ/L (136-145)
[2017-01-03 08:00] VITALS: BP 106/56
[2017-01-03] MEDS: BISOPROLOL FUMARATE 5 MG TAB PO SCH ×2 (08:06→21:12)
[2017-01-03] MEDS ORDERED: VANCOMYCIN HCL 1,000 MG, VIAL MATE ADAPTER 1 EACH in D5W 250 ML IV SCH (09:00)
[2017-01-03] MEDS: ADVAIR HFA 115/21MCG INHALER INH SCH ×2 (09:00→20:32)
[2017-01-03] MEDS: levETIRAcetam 250MG TABLET (KEPPRA) PO SCH ×2 (09:18→21:10)
[2017-01-03] MEDS: FERROUS GLUCONATE 324 MG TAB PO SCH (09:18)
[2017-01-03] MEDS: MIRALAX *UNIT DOSE* 17GM PACKET PO SCH (09:18)
[2017-01-03] MEDS: NYSTATIN 100,000 UNITS/GM TOPICAL PWD 15 GM TOP SCH ×2 (09:19→21:13)
[2017-01-03] MEDS: PANTOPRAZOLE 40MG TAB (PROTONIX) PO SCH (09:19)
[2017-01-03] MEDS: CYANOCOBALAMIN 500 MCG TAB PO SCH (09:19)
[2017-01-03] MEDS: CALCIUM/VITAMIN D 500 MG TAB PO SCH ×2 (09:19→21:12)
[2017-01-03] MEDS: LORATADINE 10 MG TAB PO SCH (09:19)
[2017-01-03 12:00] VITALS: BP 105/61
--- NOTE | 2017-01-03 14:11 | IPNPDOC ---
Subjective Date Seen The patient was seen on 01/03/17. Subjective Chief Complaint/HPI The patient is a 76-year-old female admitted with a reason for visit of Brain Mass. Events since last encounter Patient does not have any acute concerns today Constitutional: Denies: Chills, Fever ENT: Denies: Head Aches Pulmonary: Denies: Dyspnea Cardiovascular: Denies: Chest Pain Objective Physical Examination General Exam: Positive: Alert (somnolent but easily arousable), No Acute Distress Chest Exam: Positive: Clear to auscultation, Normal air movement, Negative: Rales, Rhonchi, Wheezing, Diminished Heart Exam: Positive: Rate Normal, Irregular Rhythm, Normal S1, Normal S2, Negative: Gallops, Murmurs, Rubs Telemetry: Positive: Atrial fibrillation Abdomen Exam: Positive: Normal bowel sounds, Soft, Negative: Tenderness, Hepatospenomegaly, Mass Extremity Exam: Negative: Edema Assessment /Plan Problems (1) Regurgitation of food Problem Text: chronic PP NBNB vomiting p solids-favor central nausea and gastritis-induced by anorexia, chronic po steroids, abx effect 01/03 changed ondansetron OD 4 AC TID 30 mins prior to meals, continue panto 40 qAM and + Carafate 1 AC TID/QHS, last day of vanco/meropen 01/02 ST consulted 12/31 CT head: No new intracranial finding. Ventricular size unchanged. Postoperative changes and low density area left temporal lobe. (2) Hypotension Status: Acute Response to Treatment: Stable Problem Text: 01/03: Stable, continue dexamethasone 01/02: Blood pressure stable at 108/57 today, continue dexamethasone 01/01: Blood pressure 103/62 today, lowest blood pressure over last 24 hours 90/ 50. Patient has been stable for about the last 24 hours. Continue dexamethasone. 12/31/2016: soft BP this am 94/50. 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 IV Meropenem and Vancomycin until 01/03/17. 12/29: Patient maintaining blood pressure without levophed. She did have some lower blood pressures around 1:00 this afternoon, she will remain in ICU through tomorrow. If she maintains her blood pressure, does not require restarting of pressors, she may be able to be transferred to PCU tomorrow. If patient does drop her blood pressure, hypotension may be secondary to pituitary dysfunction, consider trial of hydrocortisone 12/28: maintaining bp with 5mcg levophed, CVP 7. Rhythm varies between sinus and afib 12/28: BP down, respiratory difficulties with fluid challenge. Back to ICU with Levophed initiated. New lactic acid ordered stat and for 4 hours. Will check CVP as another indicator of volume status. Code status still Full Code. 12/27: Resolved, patient stable in PCU off of pressors. Continue to monitor for recurrence. 12/25: Patient required initiation of norepinephrine overnight. Blood pressure stable on norepinephrine. A discussion was had with the family regarding her current situation, they were made aware of her recent deterioration. She will remain a full code at this time, family will discuss her further care amongst themselves. 12/24: Developed septic shock today, T-max overnight of 103.4, hypotension with blood pressure as low as 76/42. Patient was given a 30 mL per KG fluid bolus. Patient was transferred to ICU and intensive care was consulted. (4) Meningitis Status: Acute Response to Treatment: Stable, Improving Discussed With: Nurse, Patient Problem Specific Plan: Consult Specialist, Monitor Clinically, Repeat Labs Problem Text: 01/03: Final day of vancomycin and meropenem 01/01: Continue Vanco and meropenem until 01/03/17 12/30/2016: see ID note. IV Meropenem and Vancomycin until 01/03/17. 12/28 continue vancomycin and meropenem 12/27: As per infectious disease patient will continue on Vanco and meropenem for a treatment duration of 2 weeks 12/25: CSF PCR negative, repeat CSF Gram stain and culture was negative, anaerobic culture negative, blood culture 1 no growth after 24 hours 12/24: Patient had drain of scalp swelling yesterday which was consistent CSF, showing 718 white blood cells, 95% PMNs, glucose of 15, total protein of 82. She is concurrently being managed by infectious disease, she will continue on vancomycin and meropenem. 12/23: Pt with Nosocomial meningitis, she is being followed by ID. She has had LP with pleocytosis and neutrophils, her T protein is elevated. her cultures have been Neg but she had received Rocephin prior to LP being performed. Vanco/ Meropenam dosing per ID. (5) Altered mental status Problem Text: 01/03: Somnolent and easily arousable, verbal and able to answer questions appropriately 01/02: Patient easily arousable today, verbal and able to answer questions appropriately 01/01: Patient initially sleepy but arousable on examination. Verbal and able to answer questions. Her changes in mental status appear to be secondary to her neurological condition. 12/31: Change in responsiveness compared to yesterday. CT head and chest today. Dr. Jordan, notified and will eval patient. (6) Glioblastoma multiforme Status: Chronic Problem Text: 11/24/16 sp Stent-based frameless stereotactic left posterior temporal-parietal craniotomy with microsurgical resection of large mass, cranioplasty, and marked brain edema and swelling treated with the left lateral ventriculostomy for Left temporal-parietal GBM with brain swelling by Dr. Jordan (7) Diastolic congestive heart failure Permanent Comment: 12/22/16: Echocardiogram showed hyperdynamic left ventricular systolic function, LVEF 75%, atrial flutter. Moderate elevation of pulmonary artery systolic pressure. Mild aortic valve sclerosis, mild aortic regurgitation. Negative for mitral regurgitation. Mild left atrial dilation Last Edited By: Alexus Herman PA-C on Dec 23, 2016 10:09 Status: Chronic Problem Text: 12/28: acute decompensation yesterday when attempt to use fluid bolus to support hypotension was made. she developed mild dyspnea, cxr showed vascular engorgement, moved to ICU for levophed to address hypotension. 12/23 appears compensated. 12/21 BNP 1541 c mild decompensation-held IVF and amlo 2.5 BID-repeat TTE (8) Hypokalemia Problem Text: 01/02: Potassium of 4.3 today, continue to monitor 01/01: Potassium of 3.2 today, order placed for KCl 40 meqs 2 doses 12/27: Potassium of 3.4 today, order placed for 40 meqs of oral KCl 2 doses 12/25: Potassium of 3.1 today. Orders placed for K run 1, 40 meqs of oral KCl 2 doses. Repeat BMP tomorrow. Continue to monitor (9) Seizure disorder Status: Chronic Problem Text: 12/25: CSF PCR negative, repeat CSF Gram stain and culture was negative, anaerobic culture negative, blood culture 1 no growth after 24 hours 12/22: CSF culture did not show any organisms, CSF PCR still pending 12/21/2016: LP completed a 12/20/2016. Patient has some soreness in the back around puncture site. CSF culture pending. 2 focus 2 brain tumor resection 12/[address] head c stable STS/fluid collection seen on 12/18 CT-case dw Dr. Jordan who agrees favors fluid is 2 to necrotic tissue, but given fever/MS change, agrees c LP (as did Dr. Castillo)-case dw c Dr. Arturo Foster who wanted clearance from [facility] 12/19 Dr. Herrera increased leve to 1000 BID given sz episode-partially 2 UTI/hypoNa /? fluid collection 12/19 EEG This EEG in awake, drowsy states, stage 1 and 2 sleep is abnormal due to presence of left temporal intermittent rhythmic delta activity/temporal intermittent rhythmic delta activity (TIRDA) with separate to left central head region consistent with focal cortical structural or functional abnormality with epileptic potential. No clinical or electrographic seizures were recorded. Clinical correlation is recommended. DD: KERRI HERRERA MD 12/20/16 0658 12/18 CT head The patient is status post resection of a left temporal lobe tumor. There is postoperative change in the posterior left temporal lobe with decreased mass effect compared to the previous study. There is increased soft tissue swelling and fluid overlying the craniotomy site. (10) Anemia Status: Chronic Problem Specific Plan: Monitor Clinically Problem Text: 01/01: Hemoglobin stable at 9.8 12/29: Hemoglobin stable at 10.8 12/27: Hemoglobin stable at 10.3 12/25: Hemoglobin stable at 10.5 12/23 - No labs ordered, will obtain. Hgb had trended from 10.8 12/21 to 9.7 12/21/2016: Hemoglobin improving today, 10.8. caution on chronic po steroid (on panto 40 QD for px) 12/20 hgb down to 9.4 (10.2, 11.2)-check HO baseline hgb 12s (12/09 wt 69, 12/20 79) On Supplemental B12 and Iron. 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 Patient was set up for biopsy of the nodule to rule out primary lesion. The nodule could not be biopsied by interventional radiology secondary to size. Dr. Morales noted that the lesion was unlikely a primary metastatic lesion. Patient proceeded to have a biopsy of her brain mass which resulted in glioblastoma. Lung nodule will need to be followed as outpatient. 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 Proceed with brain mass bx and pathology prior to lung nodule eval. 11/17/2016: Pulmonology, informal consult, advised against bronchoscopy. Recommends interventional to see if can get to nodule. Dr. Jordan is requesting that we strongly consider working up this lung nodule while she is in the hospital. He has a strong clinical suspicion that the brain lesion is metastatic. Additionally if she has a primary lung cancer it may change his recommendation to do an excisional bx of the brain lesion which almost assuredly leave her with some weakness and speech deficits. Tomorrow we should contact IR and/or Pulm to see whether CT guided bx or navigational bronchoscopy with bx is the best way to get a sample of this lesion. ------ CT Chest: 14 mm nodule in the anterior segment of the right lower lobe, not present on the comparison study. (14) Brain compression Status: Acute Response to Treatment: Controlled Problem Specific Plan: Monitor Clinically Problem Text: Dr. Jordan, brain edema and swelling treated with the left lateral ventriculostomy on 11/24/16. (15) HTN (hypertension) Status: Chronic Problem Specific Plan: Monitor Clinically Problem Text: BP is well controlled today. Continue current regimen, monitor. (16) CAD (coronary artery disease) Status: Chronic Problem Specific Plan: Monitor Clinically Problem Text: No active symptoms (17) COPD (chronic obstructive pulmonary disease) Status: Chronic Problem Specific Plan: Monitor Clinically Problem Text: Stable (18) Fever Status: Resolved Problem Text: 12/27: Afebrile since 12/24 12/25: MAXIMUM TEMPERATURE yesterday 100.8, afebrile since yesterday at 2300 12/24: Fever recurred, MAXIMUM TEMPERATURE overnight of 103.4 12/23 afebrile since admission 12/22: Patient has been afebrile, MAXIMUM TEMPERATURE 98.7. She will continue on Vanco and meropenem as per infectious disease 12/21 Tm 99.8, WBC stable at 10.6 D1 vanco/shamar (D3 ceftriaxone 2 gm-last dose 12/21) 12/20 LP done 2 persistent fluid collection at craniotomy site, MS change and fever to 100.4: GS -, CX P, 954 WBC (76% PMN), 111 prot, 50 glc (no ho MRSA)- therefore, dw Anna and changed to vanco/shamar (unknown PCN allergy, but tolerated ceftriaxone) 12/20 LA 1.2 (12/19 3.5!) Plan/VTE VTE Prophylaxis Ordered?: Yes (TEDs and SCDs) VTE Exclusion Pharmacological: Bleeding Risk (intracranial procedure) Plan Therapy: PT, OT Anticipated Discharge: Home With Services (based on therapy's recommendation) VS, I&O, 24H, [facility] Vital Signs/I&O Vital Signs Date Time Temp Pulse Resp B/P (MAP) Pulse Ox O2 Delivery O2 Flow Rate FiO2 01/03/17 12:00 97.9 89 18 105/61 (76) 99 Nasal Cannula 1.0 I&O- Last 24 Hours up to 6 AM 01/04/17 06:00 Intake Total 470 ml Output Total 400 ml Balance 70 ml Laboratory Data 24H LABS Laboratory Tests 2 01/02/17 19:49: Vancomycin Level Trough 20.2H 01/03/17 05:05: Nucleated Red Blood Cells % (auto) 0.0, Anion Gap 4L, Glomerular Filtration Rate > 60.0, Blood Urea Nitrogen 15, Creatinine 0.44L, Sodium Level 141, Potassium Level 4.0, Chloride Level 102, Carbon Dioxide Level 35H, Calcium Level 9.7 CBC/BMP Laboratory Tests 01/03/17 05:05 Red Blood Count 3.84 L, Mean Corpuscular Volume 82.6, Mean Corpuscular Hemoglobin 26.6 L, Mean Corpuscular Hemoglobin Concent 32.2, Red Cell Distribution Width 15.9 H, Calcium Level 9.7 Microbiology Microbiology 12/24/16 Blood Culture - Final, Complete NO GROWTH AFTER 5 DAYS 12/30/16 Gram Stain - Final, Complete 12/30/16 CSF Culture - Final, Complete GME ATTESTATION GME ATTESTATION My faculty preceptor for this patient encounter was physically present during the encounter and was fully available. All aspects of the patient interview, examination, medical decision making process, and medical care plan development were reviewed and approved by the faculty preceptor. The faculty preceptor is aware and concurs with the plan as stated in the body of this note and will attest to such by his/her cosignature. EMMA DUFFY DO Jan 03, 2017 14:11 Tushar Barr M.D. Jan 03, 2017 15:06
[2017-01-03 16:00] VITALS: BP 120/59
[2017-01-03] MEDS: SUCRALFATE SUSP 1GM/10ML UD PO SCH ×2 (16:15→21:12)
[2017-01-03] MEDS: ONDANSETRON 4 MG ORAL DISINTEGRATING TAB (S0181) PO SCH (16:59)
[2017-01-03 20:00] VITALS: BP 113/56
[2017-01-03] MEDS: ROSUVASTATIN 10 MG TAB (CRESTOR) PO SCH (21:10)
[2017-01-03] MEDS: OLANZapine 2.5MG TABLET PO SCH (21:10)
[2017-01-03 23:59] VITALS: BP 105/61
[2017-01-04 04:00] VITALS: BP 93/54
[2017-01-04 05:52] LABS: MEAN CORPUSCULAR HEMOGLOBIN 21.4 pg (27.0-33.0); MEAN CORPUSCULAR HGB CONC 30.1 g/dl (32.0-36.5); MEAN CORPUSCULAR VOLUME 71.1 fl (80.0-96.0); PLATELET COUNT, AUTOMATED 698 10^3/uL (150-450); RED CELL DISTRIBUTION WIDTH 21.7 % (11.5-14.5); WHITE BLOOD COUNT 10.8 10^3/uL (4.0-10.0)
[2017-01-04 06:05] LABS: ANION GAP 8 MEQ/L (8-16); BLOOD UREA NITROGEN 32 MG/DL (7-18); CALCIUM LEVEL 8.2 MG/DL (8.8-10.2); CARBON DIOXIDE LEVEL 25 MEQ/L (21-32); CHLORIDE LEVEL 106 MEQ/L (98-107); CREATININE FOR GFR 0.94 MG/DL (0.55-1.02); GLUCOSE, FASTING 91 MG/DL (83-110); POTASSIUM SERUM 4.1 MEQ/L (3.5-5.1); SODIUM LEVEL 139 MEQ/L (136-145)
[2017-01-04 06:10] LABS: GLOMERULAR FILTRATION RATE > 60.0 (>39)
[2017-01-04] MEDS: ACETAMINOPHEN 500 MG TAB PO PRN ×2 (06:20→18:48)
[2017-01-04] MEDS: SODIUM CHLORIDE 0.9% INJ 10 ML SYR IV SCH ×3 (06:20→21:07)
[2017-01-04] MEDS: ONDANSETRON 4 MG ORAL DISINTEGRATING TAB (S0181) PO SCH ×3 (07:25→16:39)
[2017-01-04] MEDS: SUCRALFATE SUSP 1GM/10ML UD PO SCH ×4 (07:36→21:00)
[2017-01-04 08:23] VITALS: BP 103/54
[2017-01-04] MEDS: ADVAIR HFA 115/21MCG INHALER INH SCH ×2 (09:00→21:00)
[2017-01-04] MEDS: BISOPROLOL FUMARATE 5 MG TAB PO SCH ×3 (09:00→21:05)
[2017-01-04] MEDS: PANTOPRAZOLE 40MG TAB (PROTONIX) PO SCH (09:08)
[2017-01-04] MEDS: levETIRAcetam 250MG TABLET (KEPPRA) PO SCH ×2 (09:08→21:04)
[2017-01-04] MEDS: LORATADINE 10 MG TAB PO SCH (09:09)
[2017-01-04] MEDS: CYANOCOBALAMIN 500 MCG TAB PO SCH (09:09)
[2017-01-04] MEDS: CALCIUM/VITAMIN D 500 MG TAB PO SCH ×2 (09:09→21:06)
[2017-01-04] MEDS: MIRALAX *UNIT DOSE* 17GM PACKET PO SCH (09:10)
[2017-01-04] MEDS: NYSTATIN 100,000 UNITS/GM TOPICAL PWD 15 GM TOP SCH ×2 (09:10→21:06)
[2017-01-04 12:00] VITALS: BP 99/54
--- NOTE | 2017-01-04 15:50 | IPNPDOC ---
Subjective Date Seen The patient was seen on 01/04/17. Subjective Chief Complaint/HPI The patient is a 76-year-old female admitted with a reason for visit of Brain Mass. General: Reports: Normal Appetite, Denies: Chills, Night Sweats, Fatigue Constitutional: Denies: Chills, Fever, Malaise, Night Sweats ENT: Reports: Other Symptoms (left sided jaw pain, states her lower dentures are bothering her), Denies: Head Aches Pulmonary: Denies: Dyspnea, Cough Cardiovascular: Denies: Chest Pain, Palpitations Gastrointestinal: Reports: Nausea, Denies: Vomiting, Abdominal Pain, Diarrhea, Constipation Genitourinary: Denies: Dysuria, Frequency Objective Physical Examination General Exam: Positive: Alert (patient is awake and chewing on ice chips), No Acute Distress ENT Exam: Positive: Mucous membr. moist/pink (no erythema or abrasions from where her dentures are in her mouth) Chest Exam: Positive: Clear to auscultation, Normal air movement, Negative: Rales, Rhonchi, Wheezing, Diminished Heart Exam: Positive: Rate Normal, Irregular Rhythm, Normal S1, Normal S2, Negative: Gallops, Murmurs, Rubs Telemetry: Positive: Atrial fibrillation Abdomen Exam: Positive: Normal bowel sounds, Soft, Negative: Tenderness, Hepatospenomegaly, Mass Extremity Exam: Negative: Edema Assessment /Plan Problems (1) Leukocytosis Status: Acute Problem Text: 01/04: Patient's last day of ABX (vanc and meropenem) was yesterday. Today her WBC are up from 6.2 to 10.8, platelets up from 242 to 698. She is afebrile. Because her ABX should still be in her system, and cultures have come back negative so far, I have ordered a CRP, ESR, and CBC w Diff for tomorrow. She continues on chronic steroids for adrenal insufficiency. (2) Regurgitation of food Problem Text: 01/04: Per nursing most of the nausea happens when the patient tells them she is nervous. She has been nauseated today, but was able to keep down lunch and a snack. I have increased her olanzapine to BId, and have recommended that she take smaller bites and eat more slowly. Her family members do admit that she tends to "ibarra down food." chronic PP NBNB vomiting p solids-favor central nausea and gastritis-induced by anorexia, chronic po steroids, abx effect 01/03 changed ondansetron OD 4 AC TID 30 mins prior to meals, continue panto 40 qAM and + Carafate 1 AC TID/QHS, last day of vanco/meropen 01/02 ST consulted 12/31 CT head: No new intracranial finding. Ventricular size unchanged. Postoperative changes and low density area left temporal lobe. (3) Hypotension Status: Acute Response to Treatment: Stable Problem Text: 01/04: Stable, today 103/54 01/03: Stable, continue dexamethasone 01/02: Blood pressure stable at 108/57 today, continue dexamethasone 01/01: Blood pressure 103/62 today, lowest blood pressure over last 24 hours 90/ 50. Patient has been stable for about the last 24 hours. Continue dexamethasone. 12/31/2016: soft BP this am 94/50. 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 01/03: Somnolent and easily arousable, verbal and able to answer questions appropriately 01/02: Patient easily arousable today, verbal and able to answer questions appropriately 01/01: Patient initially sleepy but arousable on examination. Verbal and able to answer questions. Her changes in mental status appear to be secondary to her neurological condition. 12/31: Change in responsiveness compared to yesterday. CT head and chest today. Dr. Jordan, notified and will eval patient. (5) Septic shock Status: Acute Problem Text: 01/03: Final day of vancomycin and meropenem 01/01: Continue vancomycin and meropenem until 01/03/17 12/30/2016: see ID note. IV Meropenem and Vancomycin until 01/03/17. 12/29: Patient maintaining blood pressure without levophed. She did have some lower blood pressures around 1:00 this afternoon, she will remain in ICU through tomorrow. If she maintains her blood pressure, does not require restarting of pressors, she may be able to be transferred to PCU tomorrow. If patient does drop her blood pressure, hypotension may be secondary to pituitary dysfunction, consider trial of hydrocortisone 12/28: maintaining bp with 5mcg levophed, CVP 7. Rhythm varies between sinus and afib 12/28: BP down, respiratory difficulties with fluid challenge. Back to ICU with Levophed initiated. New lactic acid ordered stat and for 4 hours. Will check CVP as another indicator of volume status. Code status still Full Code. 12/27: Resolved, patient stable in PCU off of pressors. Continue to monitor for recurrence. 12/25: Patient required initiation of norepinephrine overnight. Blood pressure stable on norepinephrine. A discussion was had with the family regarding her current situation, they were made aware of her recent deterioration. She will remain a full code at this time, family will discuss her further care amongst themselves. 12/24: Developed septic shock today, T-max overnight of 103.4, hypotension with blood pressure as low as 76/42. Patient was given a 30 mL per KG fluid bolus. Patient was transferred to ICU and intensive care was consulted. (6) Meningitis Status: Acute Response to Treatment: Stable, Improving Discussed With: Nurse, Patient Problem Specific Plan: Consult Specialist, Monitor Clinically, Repeat Labs Problem Text: 01/03: Final day of vancomycin and meropenem 01/01: Continue Vanco and meropenem until 01/03/17 12/30/2016: see ID note. IV Meropenem and Vancomycin until 01/03/17. 12/28 continue vancomycin and meropenem 12/27: As per infectious disease patient will continue on Vanco and meropenem for a treatment duration of 2 weeks 12/25: CSF PCR negative, repeat CSF Gram stain and culture was negative, anaerobic culture negative, blood culture 1 no growth after 24 hours 12/24: Patient had drain of scalp swelling yesterday which was consistent CSF, showing 718 white blood cells, 95% PMNs, glucose of 15, total protein of 82. She is concurrently being managed by infectious disease, she will continue on vancomycin and meropenem. 12/23: Pt with Nosocomial meningitis, she is being followed by ID. She has had LP with pleocytosis and neutrophils, her T protein is elevated. her cultures have been Neg but she had received Rocephin prior to LP being performed. Vanco/ Meropenam dosing per ID. (7) Glioblastoma multiforme Status: Chronic Problem Text: 11/24/16 sp Stent-based frameless stereotactic left posterior temporal-parietal craniotomy with microsurgical resection of large mass, cranioplasty, and marked brain edema and swelling treated with the left lateral ventriculostomy for Left temporal-parietal GBM with brain swelling by Dr. Jordan (8) Diastolic congestive heart failure Permanent Comment: 12/22/16: Echocardiogram showed hyperdynamic left ventricular systolic function, LVEF 75%, atrial flutter. Moderate elevation of pulmonary artery systolic pressure. Mild aortic valve sclerosis, mild aortic regurgitation. Negative for mitral regurgitation. Mild left atrial dilation Last Edited By: Alexus Herman PA-C on Dec 23, 2016 10:09 Status: Chronic Problem Text: 12/28: acute decompensation yesterday when attempt to use fluid bolus to support hypotension was made. she developed mild dyspnea, cxr showed vascular engorgement, moved to ICU for levophed to address hypotension. 12/23 appears compensated. 12/21 BNP 1541 c mild decompensation-held IVF and amlo 2.5 BID-repeat TTE (9) Hypokalemia Problem Text: 01/02: Potassium of 4.3 today, continue to monitor 01/01: Potassium of 3.2 today, order placed for KCl 40 meqs 2 doses 12/27: Potassium of 3.4 today, order placed for 40 meqs of oral KCl 2 doses 12/25: Potassium of 3.1 today. Orders placed for K run 1, 40 meqs of oral KCl 2 doses. Repeat BMP tomorrow. Continue to monitor (10) Seizure disorder Status: Chronic Problem Text: 12/25: CSF PCR negative, repeat CSF Gram stain and culture was negative, anaerobic culture negative, blood culture 1 no growth after 24 hours 12/22: CSF culture did not show any organisms, CSF PCR still pending 12/21/2016: LP completed a 12/20/2016. Patient has some soreness in the back around puncture site. CSF culture pending. 2 focus 2 brain tumor resection 12/[address] head c stable STS/fluid collection seen on 12/18 CT-case dw Dr. Jordan who agrees favors fluid is 2 to necrotic tissue, but given fever/MS change, agrees c LP (as did Dr. Castillo)-case dw c Dr. Arturo Anest who wanted clearance from [facility] 12/19 Dr. Herrera increased leve to 1000 BID given sz episode-partially 2 UTI/hypoNa /? fluid collection 12/19 EEG This EEG in awake, drowsy states, stage 1 and 2 sleep is abnormal due to presence of left temporal intermittent rhythmic delta activity/temporal intermittent rhythmic delta activity (TIRDA) with separate to left central head region consistent with focal cortical structural or functional abnormality with epileptic potential. No clinical or electrographic seizures were recorded. Clinical correlation is recommended. DD: KERRI HERRERA MD 12/20/16 0658 12/18 CT head The patient is status post resection of a left temporal lobe tumor. There is postoperative change in the posterior left temporal lobe with decreased mass effect compared to the previous study. There is increased soft tissue swelling and fluid overlying the craniotomy site. (11) Anemia Status: Chronic Problem Specific Plan: Monitor Clinically Problem Text: 01/01: Hemoglobin stable at 9.8 12/29: Hemoglobin stable at 10.8 12/27: Hemoglobin stable at 10.3 12/25: Hemoglobin stable at 10.5 12/23 - No labs ordered, will obtain. Hgb had trended from 10.8 12/21 to 9.7 12/21/2016: Hemoglobin improving today, 10.8. caution on chronic po steroid (on panto 40 QD for px) 12/20 hgb down to 9.4 (10.2, 11.2)-check HO baseline hgb 12s (12/09 wt 69, 12/20 79) On Supplemental B12 and Iron. 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 Patient was set up for biopsy of the nodule to rule out primary lesion. The nodule could not be biopsied by interventional radiology secondary to size. Dr. Morales noted that the lesion was unlikely a primary metastatic lesion. Patient proceeded to have a biopsy of her brain mass which resulted in glioblastoma. Lung nodule will need to be followed as outpatient. 11/24/2016: I reconfirmed this assessment with Dr. 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 (metals analyst) 11/19/16: Per Interventional Rad: most likely not a primary. Proceed with brain mass bx and pathology prior to lung nodule eval. 11/17/2016: Pulmonology, informal consult, advised against bronchoscopy. Recommends interventional to see if can get to nodule. Dr. Jordan is requesting that we strongly consider working up this lung nodule while she is in the hospital. He has a strong clinical suspicion that the brain lesion is metastatic. Additionally if she has a primary lung cancer it may change his recommendation to do an excisional bx of the brain lesion which almost assuredly leave her with some weakness and speech deficits. Tomorrow we should contact IR and/or Pulm to see whether CT guided bx or navigational bronchoscopy with bx is the best way to get a sample of this lesion. ------ CT Chest: 14 mm nodule in the anterior segment of the right lower lobe, not present on the comparison study. (15) Brain compression Status: Acute Response to Treatment: Controlled Problem Specific Plan: Monitor Clinically Problem Text: Dr. Jordan, brain edema and swelling treated with the left lateral ventriculostomy on 11/24/16. (16) HTN (hypertension) Status: Chronic Problem Specific Plan: Monitor Clinically Problem Text: BP is well controlled today. Continue current regimen, monitor. (17) CAD (coronary artery disease) Status: Chronic Problem Specific Plan: Monitor Clinically Problem Text: No active symptoms (18) COPD (chronic obstructive pulmonary disease) Status: Chronic Problem Specific Plan: Monitor Clinically Problem Text: Stable (19) Fever Status: Resolved Problem Text: 12/27: Afebrile since 12/24 12/25: MAXIMUM TEMPERATURE yesterday 100.8, afebrile since yesterday at 2300 12/24: Fever recurred, MAXIMUM TEMPERATURE overnight of 103.4 12/23 afebrile since admission 12/22: Patient has been afebrile, MAXIMUM TEMPERATURE 98.7. She will continue on Vanco and meropenem as per infectious disease 12/21 Tm 99.8, WBC stable at 10.6 D1 vanco/shamar (D3 ceftriaxone 2 gm-last dose 12/21) 12/20 LP done 2 persistent fluid collection at craniotomy site, MS change and fever to 100.4: GS -, CX P, 954 WBC (76% PMN), 111 prot, 50 glc (no ho MRSA)- therefore, dw Anna and changed to vanco/shamar (unknown PCN allergy, but tolerated ceftriaxone) 12/20 LA 1.2 (12/19 3.5!) Plan/VTE VTE Prophylaxis Ordered?: Yes (TEDs and SCDs) VTE Exclusion Pharmacological: Bleeding Risk (intracranial procedure) Plan Therapy: PT, OT Anticipated Discharge: Home With Services (based on therapy's recommendation) VS, I&O, 24H, Fishbone Vital Signs/I&O Vital Signs Date Time Temp Pulse Resp B/P (MAP) Pulse Ox O2 Delivery O2 Flow Rate FiO2 01/04/17 12:00 97.3 98 20 99/54 (69) 100 Nasal Cannula 1.0 I&O- Last 24 Hours up to 6 AM 01/05/17 06:00 Intake Total 480 ml Output Total 0 ml Balance 480 ml Laboratory Data 24H LABS Laboratory Tests 2 01/04/17 05:24: Nucleated Red Blood Cells % (auto) 0.0, Anion Gap 8, Glomerular Filtration Rate > 60.0, Blood Urea Nitrogen 32#H, Creatinine 0.94#, Sodium Level 139, Potassium Level 4.1, Chloride Level 106, Carbon Dioxide Level 25, Calcium Level 8.2#L CBC/BMP Laboratory Tests 01/04/17 05:24 Red Blood Count 4.95, Mean Corpuscular Volume 71.1 L, Mean Corpuscular Hemoglobin 21.4 L, Mean Corpuscular Hemoglobin Concent 30.1 L, Red Cell Distribution Width 21.7 H, Calcium Level 8.2 #L Microbiology Microbiology 12/30/16 Gram Stain - Final, Complete 12/30/16 CSF Culture - Final, Complete GME ATTESTATION GME ATTESTATION My faculty preceptor for this patient encounter was physically present during the encounter and was fully available. All aspects of the patient interview, examination, medical decision making process, and medical care plan development were reviewed and approved by the faculty preceptor. The faculty preceptor is aware and concurs with the plan as stated in the body of this note and will attest to such by his/her cosignature. VALENTE ALEXANDRE DO Jan 04, 2017 15:50
[2017-01-04 16:00] VITALS: BP 104/54
[2017-01-04 20:00] VITALS: BP 108/63
[2017-01-04] MEDS: OLANZapine 2.5MG TABLET PO SCH (21:04)
[2017-01-04] MEDS: ROSUVASTATIN 10 MG TAB (CRESTOR) PO SCH (21:05)
[2017-01-04 23:59] VITALS: BP 103/61
[2017-01-05 01:10] VITALS: BP 125/68
[2017-01-05 04:00] VITALS: BP 115/73
[2017-01-05] MEDS: SODIUM CHLORIDE 0.9% INJ 10 ML SYR IV SCH ×3 (05:21→21:02)
[2017-01-05 05:35] LABS: MEAN CORPUSCULAR HEMOGLOBIN 26.8 pg (27.0-33.0); MEAN CORPUSCULAR HGB CONC 31.9 g/dl (32.0-36.5); MEAN CORPUSCULAR VOLUME 84.2 fl (80.0-96.0); RED CELL DISTRIBUTION WIDTH 15.6 % (11.5-14.5); WHITE BLOOD COUNT 7.7 10^3/uL (4.0-10.0)
[2017-01-05 05:39] LABS: ADD MANUAL DIFFER YES; DIFF SLIDE NUMBER 88; PLATELET COUNT, AUTOMATED 243 10^3/uL (150-450); POS COUNT POS FLAG; POSITIVE MORPH POS FLAG
[2017-01-05 05:42] LABS: ANION GAP 4 MEQ/L (8-16); BLOOD UREA NITROGEN 19 MG/DL (7-18); CALCIUM LEVEL 9.8 MG/DL (8.8-10.2); CARBON DIOXIDE LEVEL 36 MEQ/L (21-32); CHLORIDE LEVEL 102 MEQ/L (98-107); CREATININE FOR GFR 0.55 MG/DL (0.55-1.02); GLOMERULAR FILTRATION RATE > 60.0 (>39); GLUCOSE, FASTING 114 MG/DL (83-110); POTASSIUM SERUM 3.8 MEQ/L (3.5-5.1); SODIUM LEVEL 142 MEQ/L (136-145)
[2017-01-05 06:42] LABS: ANISOCYTOSIS 1+
[2017-01-05 08:00] VITALS: BP 140/80
[2017-01-05] MEDS: MIRALAX *UNIT DOSE* 17GM PACKET PO SCH (09:02)
[2017-01-05] MEDS: CYANOCOBALAMIN 500 MCG TAB PO SCH (09:03)
[2017-01-05] MEDS: levETIRAcetam 250MG TABLET (KEPPRA) PO SCH ×2 (09:03→20:59)
[2017-01-05] MEDS: OLANZapine 2.5MG TABLET PO SCH ×2 (09:03→21:00)
[2017-01-05] MEDS: NYSTATIN 100,000 UNITS/GM TOPICAL PWD 15 GM TOP SCH ×2 (09:03→21:01)
[2017-01-05] MEDS: ONDANSETRON 4 MG ORAL DISINTEGRATING TAB (S0181) PO SCH ×3 (09:03→16:48)
[2017-01-05] MEDS: LORATADINE 10 MG TAB PO SCH (09:04)
[2017-01-05] MEDS: PANTOPRAZOLE 40MG TAB (PROTONIX) PO SCH (09:04)
[2017-01-05] MEDS: SUCRALFATE SUSP 1GM/10ML UD PO SCH ×4 (09:09→20:58)
[2017-01-05] MEDS: CALCIUM/VITAMIN D 500 MG TAB PO SCH ×2 (09:11→20:59)
[2017-01-05] MEDS: BISOPROLOL FUMARATE 5 MG TAB PO SCH ×2 (09:11→21:00)
--- NOTE | 2017-01-05 10:41 | IPNPDOC ---
Subjective Date Seen The patient was seen on 01/05/17. Subjective Chief Complaint/HPI The patient is a 76-year-old female admitted with a reason for visit of Brain Mass. Events since last encounter Patient is doing well with no changes, no acute concerns today. Constitutional: Denies: Chills, Fever ENT: Denies: Head Aches Pulmonary: Denies: Dyspnea Cardiovascular: Denies: Chest Pain Objective Physical Examination General Exam: Positive: No Acute Distress, Other (patient somnolent on examination, he would wake up for a few seconds before falling asleep again) Chest Exam: Positive: Clear to auscultation, Normal air movement, Negative: Rales, Rhonchi, Wheezing, Diminished Heart Exam: Positive: Rate Normal, Irregular Rhythm, Normal S1, Normal S2, Negative: Gallops, Murmurs, Rubs Telemetry: Positive: Atrial fibrillation Abdomen Exam: Positive: Normal bowel sounds, Soft, Negative: Tenderness, Hepatospenomegaly, Mass Extremity Exam: Negative: Edema Assessment /Plan Assessment Pt is a 76 year old female who is post-op from removal of a glioblastoma who has had recurrent episodes of hypotension thought to be secondary to meningitis following surgery. Problems (1) Leukocytosis Status: Acute Problem Text: 01/05: Patient's WBC are down to 7.7 and her platelet count is 243. CRP was 2.89 and ESR was 54 yesterday. Continue to monitor. 01/04: Patient's last day of ABX (vanc and meropenem) was yesterday. Today her WBC are up from 6.2 to 10.8, platelets up from 242 to 698. She is afebrile. Because her ABX should still be in her system, and cultures have come back negative so far, I have ordered a CRP, ESR, and CBC w Diff for tomorrow. She continues on chronic steroids for adrenal insufficiency. (2) Regurgitation of food Problem Text: 01/04: Per nursing most of the nausea happens when the patient tells them she is nervous. She has been nauseated today, but was able to keep down lunch and a snack. I have increased her olanzapine to BId, and have recommended that she take smaller bites and eat more slowly. Her family members do admit that she tends to "ibarra down food." chronic PP NBNB vomiting p solids-favor central nausea and gastritis-induced by anorexia, chronic po steroids, abx effect 01/03 changed ondansetron OD 4 AC TID 30 mins prior to meals, continue panto 40 qAM and + Carafate 1 AC TID/QHS, last day of vanco/meropen 01/02 ST consulted 12/31 CT head: No new intracranial finding. Ventricular size unchanged. Postoperative changes and low density area left temporal lobe. (3) Hypotension Status: Acute Response to Treatment: Stable Problem Text: 01/05: Stable today with pressures around 115-120/70-80. 01/04: Stable, today 103/54 01/03: Stable, continue dexamethasone 01/02: Blood pressure stable at 108/57 today, continue dexamethasone 01/01: Blood pressure 103/62 today, lowest blood pressure over last 24 hours 90/ 50. Patient has been stable for about the last 24 hours. Continue dexamethasone. 12/31/2016: soft BP this am 94/50. 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 01/03: Somnolent and easily arousable, verbal and able to answer questions appropriately 01/02: Patient easily arousable today, verbal and able to answer questions appropriately 01/01: Patient initially sleepy but arousable on examination. Verbal and able to answer questions. Her changes in mental status appear to be secondary to her neurological condition. 12/31: Change in responsiveness compared to yesterday. CT head and chest today. Dr. Jordan, notified and will eval patient. (5) Septic shock Status: Acute Problem Text: 01/03: Final day of vancomycin and meropenem 01/01: Continue vancomycin and meropenem until 01/03/17 12/30/2016: see ID note. IV Meropenem and Vancomycin until 01/03/17. 12/29: Patient maintaining blood pressure without levophed. She did have some lower blood pressures around 1:00 this afternoon, she will remain in ICU through tomorrow. If she maintains her blood pressure, does not require restarting of pressors, she may be able to be transferred to PCU tomorrow. If patient does drop her blood pressure, hypotension may be secondary to pituitary dysfunction, consider trial of hydrocortisone 12/28: maintaining bp with 5mcg levophed, CVP 7. Rhythm varies between sinus and afib 12/28: BP down, respiratory difficulties with fluid challenge. Back to ICU with Levophed initiated. New lactic acid ordered stat and for 4 hours. Will check CVP as another indicator of volume status. Code status still Full Code. 12/27: Resolved, patient stable in PCU off of pressors. Continue to monitor for recurrence. 12/25: Patient required initiation of norepinephrine overnight. Blood pressure stable on norepinephrine. A discussion was had with the family regarding her current situation, they were made aware of her recent deterioration. She will remain a full code at this time, family will discuss her further care amongst themselves. 12/24: Developed septic shock today, T-max overnight of 103.4, hypotension with blood pressure as low as 76/42. Patient was given a 30 mL per KG fluid bolus. Patient was transferred to ICU and intensive care was consulted. (6) Meningitis Status: Acute Response to Treatment: Stable, Improving Discussed With: Nurse, Patient Problem Specific Plan: Consult Specialist, Monitor Clinically, Repeat Labs Problem Text: 01/03: Final day of vancomycin and meropenem 01/01: Continue Vanco and meropenem until 01/03/17 12/30/2016: see ID note. IV Meropenem and Vancomycin until 01/03/17. 12/28 continue vancomycin and meropenem 12/27: As per infectious disease patient will continue on Vanco and meropenem for a treatment duration of 2 weeks 12/25: CSF PCR negative, repeat CSF Gram stain and culture was negative, anaerobic culture negative, blood culture 1 no growth after 24 hours 12/24: Patient had drain of scalp swelling yesterday which was consistent CSF, showing 718 white blood cells, 95% PMNs, glucose of 15, total protein of 82. She is concurrently being managed by infectious disease, she will continue on vancomycin and meropenem. 12/23: Pt with Nosocomial meningitis, she is being followed by ID. She has had LP with pleocytosis and neutrophils, her T protein is elevated. her cultures have been Neg but she had received Rocephin prior to LP being performed. Vanco/ Meropenam dosing per ID. (7) Glioblastoma multiforme Status: Chronic Problem Text: 11/24/16 sp Stent-based frameless stereotactic left posterior temporal-parietal craniotomy with microsurgical resection of large mass, cranioplasty, and marked brain edema and swelling treated with the left lateral ventriculostomy for Left temporal-parietal GBM with brain swelling by Dr. Jordan (8) Diastolic congestive heart failure Permanent Comment: 12/22/16: Echocardiogram showed hyperdynamic left ventricular systolic function, LVEF 75%, atrial flutter. Moderate elevation of pulmonary artery systolic pressure. Mild aortic valve sclerosis, mild aortic regurgitation. Negative for mitral regurgitation. Mild left atrial dilation Last Edited By: Alexus Herman PA-C on Dec 23, 2016 10:09 Status: Chronic Problem Text: 12/28: acute decompensation yesterday when attempt to use fluid bolus to support hypotension was made. she developed mild dyspnea, cxr showed vascular engorgement, moved to ICU for levophed to address hypotension. 12/23 appears compensated. 12/21 BNP 1541 c mild decompensation-held IVF and amlo 2.5 BID-repeat TTE (9) Hypokalemia Problem Text: 01/05: Potassium down to 3.8 today from 4.1 yesterday. Continue to monitor daily. 01/02: Potassium of 4.3 today, continue to monitor 01/01: Potassium of 3.2 today, order placed for KCl 40 meqs 2 doses 12/27: Potassium of 3.4 today, order placed for 40 meqs of oral KCl 2 doses 12/25: Potassium of 3.1 today. Orders placed for K run 1, 40 meqs of oral KCl 2 doses. Repeat BMP tomorrow. Continue to monitor (10) Seizure disorder Status: Chronic Problem Text: 12/25: CSF PCR negative, repeat CSF Gram stain and culture was negative, anaerobic culture negative, blood culture 1 no growth after 24 hours 12/22: CSF culture did not show any organisms, CSF PCR still pending 12/21/2016: LP completed a 12/20/2016. Patient has some soreness in the back around puncture site. CSF culture pending. 2 focus 2 brain tumor resection 12/[address] head c stable STS/fluid collection seen on 12/18 CT-case dw Dr. Jordan who agrees favors fluid is 2 to necrotic tissue, but given fever/MS change, agrees c LP (as did Dr. Castillo)-case dw c Dr. Arturo Foster who wanted clearance from [facility] 12/19 Dr. Herrera increased leve to 1000 BID given sz episode-partially 2 UTI/hypoNa /? fluid collection 12/19 EEG This EEG in awake, drowsy states, stage 1 and 2 sleep is abnormal due to presence of left temporal intermittent rhythmic delta activity/temporal intermittent rhythmic delta activity (TIRDA) with separate to left central head region consistent with focal cortical structural or functional abnormality with epileptic potential. No clinical or electrographic seizures were recorded. Clinical correlation is recommended. DD: KERRI HERRERA MD 12/20/16 0658 12/18 CT head The patient is status post resection of a left temporal lobe tumor. There is postoperative change in the posterior left temporal lobe with decreased mass effect compared to the previous study. There is increased soft tissue swelling and fluid overlying the craniotomy site. (11) Anemia Status: Chronic Problem Specific Plan: Monitor Clinically Problem Text: 01/05: Hemoglobin at 9.5 today from 10.6 yesterday. Continue to monitor daily. 01/01: Hemoglobin stable at 9.8 12/29: Hemoglobin stable at 10.8 12/27: Hemoglobin stable at 10.3 12/25: Hemoglobin stable at 10.5 12/23 - No labs ordered, will obtain. Hgb had trended from 10.8 12/21 to 9.7 12/21/2016: Hemoglobin improving today, 10.8. caution on chronic po steroid (on panto 40 QD for px) 12/20 hgb down to 9.4 (10.2, 11.2)-check HO baseline hgb 12s (12/09 wt 69, 12/20 79) On Supplemental B12 and Iron. 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 Patient was set up for biopsy of the nodule to rule out primary lesion. The nodule could not be biopsied by interventional radiology secondary to size. Dr. Morales noted that the lesion was unlikely a primary metastatic lesion. Patient proceeded to have a biopsy of her brain mass which resulted in glioblastoma. Lung nodule will need to be followed as outpatient. 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 Proceed with brain mass bx and pathology prior to lung nodule eval. 11/17/2016: Pulmonology, informal consult, advised against bronchoscopy. Recommends interventional to see if can get to nodule. Dr. Jordan is requesting that we strongly consider working up this lung nodule while she is in the hospital. He has a strong clinical suspicion that the brain lesion is metastatic. Additionally if she has a primary lung cancer it may change his recommendation to do an excisional bx of the brain lesion which almost assuredly leave her with some weakness and speech deficits. Tomorrow we should contact IR and/or Pulm to see whether CT guided bx or navigational bronchoscopy with bx is the best way to get a sample of this lesion. ------ CT Chest: 14 mm nodule in the anterior segment of the right lower lobe, not present on the comparison study. (15) Brain compression Status: Acute Response to Treatment: Controlled Problem Specific Plan: Monitor Clinically Problem Text: Dr. Jordan, brain edema and swelling treated with the left lateral ventriculostomy on 11/24/16. (16) HTN (hypertension) Status: Chronic Problem Specific Plan: Monitor Clinically Problem Text: BP is well controlled today. Continue current regimen, monitor. (17) CAD (coronary artery disease) Status: Chronic Problem Specific Plan: Monitor Clinically Problem Text: No active symptoms (18) COPD (chronic obstructive pulmonary disease) Status: Chronic Problem Specific Plan: Monitor Clinically Problem Text: Stable (19) Fever Status: Resolved Problem Text: 12/27: Afebrile since 12/24 12/25: MAXIMUM TEMPERATURE yesterday 100.8, afebrile since yesterday at 2300 12/24: Fever recurred, MAXIMUM TEMPERATURE overnight of 103.4 12/23 afebrile since admission 12/22: Patient has been afebrile, MAXIMUM TEMPERATURE 98.7. She will continue on Vanco and meropenem as per infectious disease 12/21 Tm 99.8, WBC stable at 10.6 D1 vanco/shamar (D3 ceftriaxone 2 gm-last dose 12/21) 12/20 LP done 2 persistent fluid collection at craniotomy site, MS change and fever to 100.4: GS -, CX P, 954 WBC (76% PMN), 111 prot, 50 glc (no ho MRSA)- therefore, dw Anna and changed to vanco/shamar (unknown PCN allergy, but tolerated ceftriaxone) 12/20 LA 1.2 (12/19 3.5!) Plan/VTE VTE Prophylaxis Ordered?: Yes (TEDs and SCDs) VTE Exclusion Pharmacological: Bleeding Risk (intracranial procedure) Plan Therapy: PT, OT Anticipated Discharge: Home With Services (based on therapy's recommendation) VS, I&O, 24H, [facility] Vital Signs/I&O Vital Signs Date Time Temp Pulse Resp B/P (MAP) Pulse Ox O2 Delivery O2 Flow Rate FiO2 01/05/17 09:11 90 120/80 01/05/17 08:00 Nasal Cannula 2.0 01/05/17 08:00 97.2 20 97 I&O- Last 24 Hours up to 6 AM 01/06/17 06:00 Intake Total 60 ml Balance 60 ml Laboratory Data 24H LABS Laboratory Tests 2 01/04/17 15:35: Erythrocyte Sedimentation Rate 54H 01/05/17 05:08: Anion Gap 4L, Glomerular Filtration Rate > 60.0, Blood Urea Nitrogen 19H, Creatinine 0.55, Sodium Level 142, Potassium Level 3.8, Chloride Level 102, Carbon Dioxide Level 36H, Calcium Level 9.8# 01/05/17 05:09: Immature Granulocyte % (Auto) , Nucleated Red Blood Cells % (auto) 0.0, Neutrophils 79H, Lymphocytes (Manual) 15L, Monocytes (Manual) 4, Metamyelocytes 1H, Atypical Lymphocytes 1, Platelet Estimate NORMAL, Basophilic Stippling 2+, Anisocytosis 1+ CBC/BMP Laboratory Tests 01/05/17 05:08 Calcium Level 9.8 # 01/05/17 05:09 Red Blood Count 3.54 L, Mean Corpuscular Volume 84.2, Mean Corpuscular Hemoglobin 26.8 L, Mean Corpuscular Hemoglobin Concent 31.9 L, Red Cell Distribution Width 15.6 H Microbiology Microbiology 12/30/16 Gram Stain - Final, Complete 12/30/16 CSF Culture - Final, Complete GME ATTESTATION GME ATTESTATION My faculty preceptor for this patient encounter was physically present during the encounter and was fully available. All aspects of the patient interview, examination, medical decision making process, and medical care plan development were reviewed and approved by the faculty preceptor. The faculty preceptor is aware and concurs with the plan as stated in the body of this note and will attest to such by his/her cosignature. EMMA DUFFY DO Jan 05, 2017 10:41
[2017-01-05 12:00] VITALS: BP 136/72
--- NOTE | 2017-01-05 12:13 | REP ---
CT HEAD WITHOUT CONTRAST: HISTORY: Fall. COMPARISON: 12/31/2016. The patient is status post left temporoparietal craniotomy and resection of a left temporal lobe tumor. Decreased attenuation is present in the posterior left temporal and parietal lobes. There is minimal mass effect on the posterior body and atrium of the left lateral ventricle unchanged compared to the previous study. There is no intraparenchymal hemorrhage or midline shift. The ventricular system and cortical sulci as well as subarachnoid space in the posterior fossa are dilated consistent with mild volume loss. There is no extracerebral collection. There has been a decrease in the size of the subgaleal fluid collection at the craniotomy site. Minimal mucosal thickening is present in the right ethmoid sinus. IMPRESSION: 1. There are postoperative changes in the posterior left temporal and parietal lobes unchanged compared to the previous study. 2. Mild volume loss. Signed by Elias Ruelas MD 01/05/2017 12:21 P
[2017-01-05] MEDS: ACETAMINOPHEN 500 MG TAB PO PRN (12:34)
[2017-01-05] MEDS ORDERED: ALBUTEROL SULFATE 2.5 MG/0.5 ML INH NEB SOLN NEB PRN (13:15)
[2017-01-05] MEDS: ALBUTEROL SULFATE 2.5 MG/0.5 ML INH NEB SOLN NEB SCH ×2 (14:00→21:22)
[2017-01-05 16:00] VITALS: BP 104/51
[2017-01-05 20:00] VITALS: BP 101/59
[2017-01-05] MEDS: BUDESONIDE 0.5 MG/2 ML INHALATION SUSPENSION INH SCH (20:00)
[2017-01-05] MEDS: ROSUVASTATIN 10 MG TAB (CRESTOR) PO SCH (20:59)
[2017-01-06] VITALS: BP 100/56
[2017-01-06] MEDS: ALBUTEROL SULFATE 2.5 MG/0.5 ML INH NEB SOLN NEB SCH ×4 (02:00→20:49)
[2017-01-06 04:00] VITALS: BP 128/66
[2017-01-06] MEDS: SODIUM CHLORIDE 0.9% INJ 10 ML SYR IV SCH ×3 (06:01→21:13)
[2017-01-06 06:10] LABS: MEAN CORPUSCULAR HEMOGLOBIN 26.3 pg (27.0-33.0); MEAN CORPUSCULAR HGB CONC 31.4 g/dl (32.0-36.5); MEAN CORPUSCULAR VOLUME 83.9 fl (80.0-96.0); PLATELET COUNT, AUTOMATED 277 10^3/uL (150-450); RED CELL DISTRIBUTION WIDTH 15.9 % (11.5-14.5); WHITE BLOOD COUNT 9.8 10^3/uL (4.0-10.0)
[2017-01-06 06:12] LABS: ADD MANUAL DIFFER YES; DIFF SLIDE NUMBER 60; POS COUNT POS FLAG; POSITIVE MORPH POS FLAG
[2017-01-06 07:02] LABS: ANISOCYTOSIS 1+; EOSINOPHILS 1 % (0-5)
[2017-01-06] MEDS: ONDANSETRON 4 MG ORAL DISINTEGRATING TAB (S0181) PO SCH ×3 (07:13→17:11)
[2017-01-06] MEDS: SUCRALFATE SUSP 1GM/10ML UD PO SCH ×4 (07:13→21:12)
[2017-01-06 08:00] VITALS: BP 127/77
[2017-01-06] MEDS: BUDESONIDE 0.5 MG/2 ML INHALATION SUSPENSION INH SCH ×2 (08:12→20:49)
[2017-01-06] MEDS: CYANOCOBALAMIN 500 MCG TAB PO SCH (09:14)
[2017-01-06] MEDS: levETIRAcetam 250MG TABLET (KEPPRA) PO SCH ×2 (09:14→21:12)
[2017-01-06] MEDS: BISOPROLOL FUMARATE 5 MG TAB PO SCH ×2 (09:14→21:13)
[2017-01-06] MEDS: NYSTATIN 100,000 UNITS/GM TOPICAL PWD 15 GM TOP SCH ×2 (09:15→21:13)
[2017-01-06] MEDS: CALCIUM/VITAMIN D 500 MG TAB PO SCH ×2 (09:15→21:12)
[2017-01-06] MEDS: PANTOPRAZOLE 40MG TAB (PROTONIX) PO SCH (09:15)
[2017-01-06] MEDS: LORATADINE 10 MG TAB PO SCH (09:15)
[2017-01-06] MEDS: OLANZapine 2.5MG TABLET PO SCH ×2 (09:15→21:12)
[2017-01-06] MEDS: MIRALAX *UNIT DOSE* 17GM PACKET PO SCH (09:16)
--- NOTE | 2017-01-06 11:27 | IPNPDOC ---
Subjective Date Seen The patient was seen on 01/06/17. Subjective Chief Complaint/HPI The patient is a 76-year-old female admitted with a reason for visit of Brain Mass. Events since last encounter Patient is groggy currently - nurse states she has episodes like this normally. she was awake and alert this am eating breakfast Constitutional: Denies: Chills, Fever Pulmonary: Denies: Dyspnea, Cough Cardiovascular: Denies: Chest Pain, Palpitations Gastrointestinal: Denies: Nausea, Vomiting, Abdominal Pain, Diarrhea, Constipation Objective Physical Examination General Exam: Positive: No Acute Distress, Other (Patient is awake, but groggy and confused. ) Chest Exam: Positive: Clear to auscultation, Normal air movement, Negative: Rales, Rhonchi, Wheezing, Diminished Heart Exam: Positive: Rate Normal, Irregular Rhythm, Normal S1, Normal S2, Negative: Gallops, Murmurs, Rubs Telemetry: Positive: Atrial fibrillation Abdomen Exam: Positive: Normal bowel sounds, Soft, Negative: Tenderness, Hepatospenomegaly, Mass Extremity Exam: Negative: Edema Assessment /Plan Problems (1) Leukocytosis Status: Acute Problem Text: 01/06 - WBC = 9.8, plat = 277 Patient's last day of ABX (vanc and meropenem) was 01/01 01/05: Patient's WBC are down to 7.7 and her platelet count is 243. CRP was 2.89 and ESR was 54 yesterday. Continue to monitor. She continues on chronic steroids for adrenal insufficiency. (2) Regurgitation of food Problem Text: 01/04: Per nursing most of the nausea happens when the patient tells them she is nervous. She has been nauseated today, but was able to keep down lunch and a snack. I have increased her olanzapine to BId, and have recommended that she take smaller bites and eat more slowly. Her family members do admit that she tends to "ibarra down food." chronic PP NBNB vomiting p solids-favor central nausea and gastritis-induced by anorexia, chronic po steroids, abx effect 01/03 changed ondansetron OD 4 AC TID 30 mins prior to meals, continue panto 40 qAM and + Carafate 1 AC TID/QHS, last day of vanco/meropen 01/02 ST consulted 12/31 CT head: No new intracranial finding. Ventricular size unchanged. Postoperative changes and low density area left temporal lobe. (3) Hypotension Status: Acute Response to Treatment: Stable Problem Text: 01/05: Stable today with pressures around 115-120/70-80. 01/04: Stable, today 103/54 01/03: Stable, continue dexamethasone 01/02: Blood pressure stable at 108/57 today, continue dexamethasone 01/01: Blood pressure 103/62 today, lowest blood pressure over last 24 hours 90/ 50. Patient has been stable for about the last 24 hours. Continue dexamethasone. 12/31/2016: soft BP this am 94/50. 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 01/04: Patient is awake, alert and able to answer questions appropriately. 01/03: Somnolent and easily arousable, verbal and able to answer questions appropriately 01/02: Patient easily arousable today, verbal and able to answer questions appropriately 01/01: Patient initially sleepy but arousable on examination. Verbal and able to answer questions. Her changes in mental status appear to be secondary to her neurological condition. 12/31: Change in responsiveness compared to yesterday. CT head and chest today. Dr. Jordan, notified and will eval patient. (5) Septic shock Status: Resolved Problem Text: 01/06 - BP variable but overall stable on Bisoprolol 01/03: Final day of vancomycin and meropenem 01/01: Continue vancomycin and meropenem until 01/03/17 12/30/2016: see ID note. IV Meropenem and Vancomycin until 01/03/17. 12/29: Patient maintaining blood pressure without levophed. She did have some lower blood pressures around 1:00 this afternoon, she will remain in ICU through tomorrow. If she maintains her blood pressure, does not require restarting of pressors, she may be able to be transferred to PCU tomorrow. If patient does drop her blood pressure, hypotension may be secondary to pituitary dysfunction, consider trial of hydrocortisone 12/28: maintaining bp with 5mcg levophed, CVP 7. Rhythm varies between sinus and afib 12/28: BP down, respiratory difficulties with fluid challenge. Back to ICU with Levophed initiated. New lactic acid ordered stat and for 4 hours. Will check CVP as another indicator of volume status. Code status still Full Code. 12/27: Resolved, patient stable in PCU off of pressors. Continue to monitor for recurrence. 12/25: Patient required initiation of norepinephrine overnight. Blood pressure stable on norepinephrine. A discussion was had with the family regarding her current situation, they were made aware of her recent deterioration. She will remain a full code at this time, family will discuss her further care amongst themselves. 12/24: Developed septic shock today, T-max overnight of 103.4, hypotension with blood pressure as low as 76/42. Patient was given a 30 mL per KG fluid bolus. Patient was transferred to ICU and intensive care was consulted. (6) Meningitis Status: Resolved Response to Treatment: Stable, Improving Discussed With: Nurse, Patient Problem Specific Plan: Consult Specialist, Monitor Clinically, Repeat Labs Problem Text: 01/03: Final day of vancomycin and meropenem 01/01: Continue Vanco and meropenem until 01/03/17 12/30/2016: see ID note. IV Meropenem and Vancomycin until 01/03/17. 12/28 continue vancomycin and meropenem 12/27: As per infectious disease patient will continue on Vanco and meropenem for a treatment duration of 2 weeks 12/25: CSF PCR negative, repeat CSF Gram stain and culture was negative, anaerobic culture negative, blood culture 1 no growth after 24 hours 12/24: Patient had drain of scalp swelling yesterday which was consistent CSF, showing 718 white blood cells, 95% PMNs, glucose of 15, total protein of 82. She is concurrently being managed by infectious disease, she will continue on vancomycin and meropenem. 12/23: Pt with Nosocomial meningitis, she is being followed by ID. She has had LP with pleocytosis and neutrophils, her T protein is elevated. her cultures have been Neg but she had received Rocephin prior to LP being performed. Vanco/ Meropenam dosing per ID. (7) Glioblastoma multiforme Status: Chronic Problem Text: 01/06/17 - per Neurosurgery 11/24/16 sp Stent-based frameless stereotactic left posterior temporal-parietal craniotomy with microsurgical resection of large mass, cranioplasty, and marked brain edema and swelling treated with the left lateral ventriculostomy for Left temporal-parietal GBM with brain swelling by Dr. Jordan (8) Diastolic congestive heart failure Permanent Comment: 12/22/16: Echocardiogram showed hyperdynamic left ventricular systolic function, LVEF 75%, atrial flutter. Moderate elevation of pulmonary artery systolic pressure. Mild aortic valve sclerosis, mild aortic regurgitation. Negative for mitral regurgitation. Mild left atrial dilation Last Edited By: Alexus Herman PA-C on Dec 23, 2016 10:09 Status: Chronic Problem Text: 12/28: acute decompensation yesterday when attempt to use fluid bolus to support hypotension was made. she developed mild dyspnea, cxr showed vascular engorgement, moved to ICU for levophed to address hypotension. 12/23 appears compensated. 12/21 BNP 1541 c mild decompensation-held IVF and amlo 2.5 BID-repeat TTE (9) Hypokalemia Problem Text: 01/05: Potassium down to 3.8 today from 4.1 yesterday. Continue to monitor daily. 01/02: Potassium of 4.3 today, continue to monitor 01/01: Potassium of 3.2 today, order placed for KCl 40 meqs 2 doses 12/27: Potassium of 3.4 today, order placed for 40 meqs of oral KCl 2 doses 12/25: Potassium of 3.1 today. Orders placed for K run 1, 40 meqs of oral KCl 2 doses. Repeat BMP tomorrow. Continue to monitor (10) Seizure disorder Status: Chronic Problem Text: 12/25: CSF PCR negative, repeat CSF Gram stain and culture was negative, anaerobic culture negative, blood culture 1 no growth after 24 hours 12/22: CSF culture did not show any organisms, CSF PCR still pending 12/21/2016: LP completed a 12/20/2016. Patient has some soreness in the back around puncture site. CSF culture pending. 2 focus 2 brain tumor resection 12/[address] head c stable STS/fluid collection seen on 12/18 CT-case dw Dr. Jordan who agrees favors fluid is 2 to necrotic tissue, but given fever/MS change, agrees c LP (as did Dr. Castillo)-case dw c Dr. Arturo Anest who wanted clearance from [facility] 12/19 Dr. Herrera increased leve to 1000 BID given sz episode-partially 2 UTI/hypoNa /? fluid collection 12/19 EEG This EEG in awake, drowsy states, stage 1 and 2 sleep is abnormal due to presence of left temporal intermittent rhythmic delta activity/temporal intermittent rhythmic delta activity (TIRDA) with separate to left central head region consistent with focal cortical structural or functional abnormality with epileptic potential. No clinical or electrographic seizures were recorded. Clinical correlation is recommended. DD: KERRI HERRERA MD 12/20/16 0658 12/18 CT head The patient is status post resection of a left temporal lobe tumor. There is postoperative change in the posterior left temporal lobe with decreased mass effect compared to the previous study. There is increased soft tissue swelling and fluid overlying the craniotomy site. (11) Anemia Status: Chronic Problem Specific Plan: Monitor Clinically Problem Text: 01/05: Hemoglobin at 9.5 today from 10.6 yesterday. Continue to monitor daily. 01/01: Hemoglobin stable at 9.8 12/29: Hemoglobin stable at 10.8 12/27: Hemoglobin stable at 10.3 12/25: Hemoglobin stable at 10.5 12/23 - No labs ordered, will obtain. Hgb had trended from 10.8 12/21 to 9.7 12/21/2016: Hemoglobin improving today, 10.8. caution on chronic po steroid (on panto 40 QD for px) 12/20 hgb down to 9.4 (10.2, 11.2)-check HO baseline hgb 12s (12/09 wt 69, 12/20 79) On Supplemental B12 and Iron. 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 Patient was set up for biopsy of the nodule to rule out primary lesion. The nodule could not be biopsied by interventional radiology secondary to size. Dr. Morales noted that the lesion was unlikely a primary metastatic lesion. Patient proceeded to have a biopsy of her brain mass which resulted in glioblastoma. Lung nodule will need to be followed as outpatient. 11/24/2016: I reconfirmed this assessment with Dr. 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 (gun number) 11/19/16: Per Interventional Rad: most likely not a primary. Proceed with brain mass bx and pathology prior to lung nodule eval. 11/17/2016: Pulmonology, informal consult, advised against bronchoscopy. Recommends interventional to see if can get to nodule. Dr. Jordan is requesting that we strongly consider working up this lung nodule while she is in the hospital. He has a strong clinical suspicion that the brain lesion is metastatic. Additionally if she has a primary lung cancer it may change his recommendation to do an excisional bx of the brain lesion which almost assuredly leave her with some weakness and speech deficits. Tomorrow we should contact IR and/or Pulm to see whether CT guided bx or navigational bronchoscopy with bx is the best way to get a sample of this lesion. ------ CT Chest: 14 mm nodule in the anterior segment of the right lower lobe, not present on the comparison study. (15) Brain compression Status: Acute Response to Treatment: Controlled Problem Specific Plan: Monitor Clinically Problem Text: Dr. Jordan, brain edema and swelling treated with the left lateral ventriculostomy on 11/24/16. (16) HTN (hypertension) Status: Chronic Problem Specific Plan: Monitor Clinically Problem Text: BP is well controlled today. Continue current regimen of Bisoprolol (17) CAD (coronary artery disease) Status: Chronic Problem Specific Plan: Monitor Clinically Problem Text: No active symptoms (18) COPD (chronic obstructive pulmonary disease) Status: Chronic Problem Specific Plan: Monitor Clinically Problem Text: Stable Plan/VTE VTE Prophylaxis Ordered?: Yes (TEDs and SCDs) VTE Exclusion Pharmacological: Bleeding Risk (intracranial procedure) Plan Therapy: PT, OT Anticipated Discharge: Home With Services (based on therapy's recommendation) Disposition Move to floor 01/07 if BP remains stable VS, I&O, 24H, Fishbone Vital Signs/I&O Vital Signs Date Time Temp Pulse Resp B/P (MAP) Pulse Ox O2 Delivery O2 Flow Rate FiO2 01/06/17 09:14 90 127/77 01/06/17 08:00 96.5 15 92 Nasal Cannula 1.0 I&O- Last 24 Hours up to 6 AM 01/07/17 05:59 Intake Total 450 ml Output Total 500 ml Balance -50 ml Laboratory Data 24H LABS Laboratory Tests 2 01/06/17 05:39: Immature Granulocyte % (Auto) , Nucleated Red Blood Cells % (auto) 0.0, Neutrophils 69, Lymphocytes (Manual) 13L, Monocytes (Manual) 9H, Eosinophils ( Manual) 1, Metamyelocytes 4H, Myelocytes 1H, Atypical Lymphocytes 3, Platelet Estimate NORMAL, Anisocytosis 1+ CBC/BMP Laboratory Tests 01/06/17 05:39 Red Blood Count 3.91 L, Mean Corpuscular Volume 83.9, Mean Corpuscular Hemoglobin 26.3 L, Mean Corpuscular Hemoglobin Concent 31.4 L, Red Cell Distribution Width 15.9 H Microbiology Microbiology 12/30/16 Gram Stain - Final, Complete 12/30/16 CSF Culture - Final, Complete NEVAEH MORROW PA-C Jan 06, 2017 11:27
[2017-01-06 12:00] VITALS: BP 128/79
[2017-01-06 16:00] VITALS: BP 126/69
[2017-01-06 20:00] VITALS: BP 118/60
[2017-01-06] MEDS: ROSUVASTATIN 10 MG TAB (CRESTOR) PO SCH (21:12)
[2017-01-07] VITALS (7 sets, daily range): BP systolic 103–138; BP diastolic 55–97
[2017-01-07] MEDS: ALBUTEROL SULFATE 2.5 MG/0.5 ML INH NEB SOLN NEB SCH ×4 (01:02→20:45)
[2017-01-07] MEDS: SODIUM CHLORIDE 0.9% INJ 10 ML SYR IV SCH ×3 (05:33→21:29)
[2017-01-07] MEDS: ACETAMINOPHEN 500 MG TAB PO PRN (05:34)
[2017-01-07 06:40] LABS: MEAN CORPUSCULAR HEMOGLOBIN 26.8 pg (27.0-33.0); MEAN CORPUSCULAR HGB CONC 31.6 g/dl (32.0-36.5); MEAN CORPUSCULAR VOLUME 84.9 fl (80.0-96.0); PLATELET COUNT, AUTOMATED 302 10^3/uL (150-450); RED CELL DISTRIBUTION WIDTH 15.9 % (11.5-14.5); WHITE BLOOD COUNT 8.9 10^3/uL (4.0-10.0)
[2017-01-07 06:59] LABS: ADD MANUAL DIFFER YES; DIFF SLIDE NUMBER 36; POS COUNT POS FLAG; POSITIVE MORPH POS FLAG
[2017-01-07] MEDS: BUDESONIDE 0.5 MG/2 ML INHALATION SUSPENSION INH SCH ×2 (07:27→20:45)
[2017-01-07 07:33] LABS: BANDS 1 % (< 11); EOSINOPHILS 1 % (0-5)
[2017-01-07] MEDS: MIRALAX *UNIT DOSE* 17GM PACKET PO SCH (08:17)
[2017-01-07] MEDS: SUCRALFATE SUSP 1GM/10ML UD PO SCH ×4 (08:17→21:27)
[2017-01-07] MEDS: ONDANSETRON 4 MG ORAL DISINTEGRATING TAB (S0181) PO SCH ×3 (08:18→16:42)
[2017-01-07] MEDS: CYANOCOBALAMIN 500 MCG TAB PO SCH (08:18)
[2017-01-07] MEDS: PANTOPRAZOLE 40MG TAB (PROTONIX) PO SCH (08:18)
[2017-01-07] MEDS: CALCIUM/VITAMIN D 500 MG TAB PO SCH ×2 (08:18→21:28)
[2017-01-07] MEDS: BISOPROLOL FUMARATE 5 MG TAB PO SCH ×2 (08:18→21:28)
[2017-01-07] MEDS: OLANZapine 2.5MG TABLET PO SCH ×2 (08:18→21:28)
[2017-01-07] MEDS: LORATADINE 10 MG TAB PO SCH (08:19)
[2017-01-07] MEDS: NYSTATIN 100,000 UNITS/GM TOPICAL PWD 15 GM TOP SCH ×2 (08:19→21:30)
[2017-01-07] MEDS: levETIRAcetam 250MG TABLET (KEPPRA) PO SCH ×2 (08:19→21:28)
--- NOTE | 2017-01-07 11:11 | IPNPDOC ---
Subjective Date Seen The patient was seen on 01/07/17. Subjective Chief Complaint/HPI The patient is a 76-year-old female admitted with a reason for visit of Brain Mass. Events since last encounter Patient states that she was having some nausea this morning, she otherwise did not want to talk much today Gastrointestinal: Reports: Nausea Objective Physical Examination General Exam: Positive: Alert, No Acute Distress Chest Exam: Positive: Clear to auscultation, Normal air movement, Negative: Rales, Rhonchi, Wheezing, Diminished Heart Exam: Positive: Rate Normal, Irregular Rhythm, Normal S1, Normal S2, Negative: Gallops, Murmurs, Rubs Telemetry: Positive: Atrial fibrillation Abdomen Exam: Positive: Normal bowel sounds, Soft, Negative: Tenderness, Hepatospenomegaly, Mass Extremity Exam: Negative: Edema Psych Exam: Positive: Other (depressed, not very conversive on examination) Assessment /Plan Problems (1) Leukocytosis Status: Acute Problem Text: 01/07: White blood cell count of 8.9 off of antibiotics, continue to monitor (2) Regurgitation of food Problem Text: 01/07: Patient having some regurgitation while examining patient , continue to monitor 01/04: Per nursing most of the nausea happens when the patient tells them she is nervous. She has been nauseated today, but was able to keep down lunch and a snack. I have increased her olanzapine to BId, and have recommended that she take smaller bites and eat more slowly. Her family members do admit that she tends to "ibarra down food." chronic PP NBNB vomiting p solids-favor central nausea and gastritis-induced by anorexia, chronic po steroids, abx effect 01/03 changed ondansetron OD 4 AC TID 30 mins prior to meals, continue panto 40 qAM and + Carafate 1 AC TID/QHS, last day of vanco/meropen 01/02 [address] consulted (3) Hypotension Status: Acute Response to Treatment: Stable Problem Text: 01/07: Blood pressure stable, continue to monitor 01/05: Stable today with pressures around 115-120/70-80. 01/04: Stable, today 103/54 01/03: Stable, continue dexamethasone 01/02: Blood pressure stable at 108/57 today, continue dexamethasone 01/01: Blood pressure 103/62 today, lowest blood pressure over last 24 hours 90/ 50. Patient has been stable for about the last 24 hours. Continue dexamethasone. 12/31/2016: soft BP this am 94/50. 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 01/04: Patient is awake, alert and able to answer questions appropriately. 01/03: Somnolent and easily arousable, verbal and able to answer questions appropriately 01/02: Patient easily arousable today, verbal and able to answer questions appropriately 01/01: Patient initially sleepy but arousable on examination. Verbal and able to answer questions. Her changes in mental status appear to be secondary to her neurological condition. 12/31: Change in responsiveness compared to yesterday. CT head and chest today. Dr. Jordan, notified and will eval patient. (5) Septic shock Status: Resolved Problem Text: 01/06 - BP variable but overall stable on Bisoprolol 01/03: Final day of vancomycin and meropenem 01/01: Continue vancomycin and meropenem until 01/03/17 12/30/2016: see ID note. IV Meropenem and Vancomycin until 01/03/17. 12/29: Patient maintaining blood pressure without levophed. She did have some lower blood pressures around 1:00 this afternoon, she will remain in ICU through tomorrow. If she maintains her blood pressure, does not require restarting of pressors, she may be able to be transferred to PCU tomorrow. If patient does drop her blood pressure, hypotension may be secondary to pituitary dysfunction, consider trial of hydrocortisone 12/28: maintaining bp with 5mcg levophed, CVP 7. Rhythm varies between sinus and afib 12/28: BP down, respiratory difficulties with fluid challenge. Back to ICU with Levophed initiated. New lactic acid ordered stat and for 4 hours. Will check CVP as another indicator of volume status. Code status still Full Code. 12/27: Resolved, patient stable in PCU off of pressors. Continue to monitor for recurrence. 12/25: Patient required initiation of norepinephrine overnight. Blood pressure stable on norepinephrine. A discussion was had with the family regarding her current situation, they were made aware of her recent deterioration. She will remain a full code at this time, family will discuss her further care amongst themselves. 12/24: Developed septic shock today, T-max overnight of 103.4, hypotension with blood pressure as low as 76/42. Patient was given a 30 mL per KG fluid bolus. Patient was transferred to ICU and intensive care was consulted. (6) Meningitis Status: Resolved Response to Treatment: Stable, Improving Discussed With: Nurse, Patient Problem Specific Plan: Consult Specialist, Monitor Clinically, Repeat Labs Problem Text: 01/03: Final day of vancomycin and meropenem 01/01: Continue Vanco and meropenem until 01/03/17 12/30/2016: see ID note. IV Meropenem and Vancomycin until 01/03/17. 12/28 continue vancomycin and meropenem 12/27: As per infectious disease patient will continue on Vanco and meropenem for a treatment duration of 2 weeks 12/25: CSF PCR negative, repeat CSF Gram stain and culture was negative, anaerobic culture negative, blood culture 1 no growth after 24 hours 12/24: Patient had drain of scalp swelling yesterday which was consistent CSF, showing 718 white blood cells, 95% PMNs, glucose of 15, total protein of 82. She is concurrently being managed by infectious disease, she will continue on vancomycin and meropenem. 12/23: Pt with Nosocomial meningitis, she is being followed by ID. She has had LP with pleocytosis and neutrophils, her T protein is elevated. her cultures have been Neg but she had received Rocephin prior to LP being performed. Vanco/ Meropenam dosing per ID. (7) Glioblastoma multiforme Status: Chronic Problem Text: 01/06/17 - per Neurosurgery 11/24/16 sp Stent-based frameless stereotactic left posterior temporal-parietal craniotomy with microsurgical resection of large mass, cranioplasty, and marked brain edema and swelling treated with the left lateral ventriculostomy for Left temporal-parietal GBM with brain swelling by Dr. Jordan (8) Diastolic congestive heart failure Permanent Comment: 12/22/16: Echocardiogram showed hyperdynamic left ventricular systolic function, LVEF 75%, atrial flutter. Moderate elevation of pulmonary artery systolic pressure. Mild aortic valve sclerosis, mild aortic regurgitation. Negative for mitral regurgitation. Mild left atrial dilation Last Edited By: Alexus Herman PA-C on Dec 23, 2016 10:09 Status: Chronic Problem Text: 12/28: acute decompensation yesterday when attempt to use fluid bolus to support hypotension was made. she developed mild dyspnea, cxr showed vascular engorgement, moved to ICU for levophed to address hypotension. 12/23 appears compensated. 12/21 BNP 1541 c mild decompensation-held IVF and amlo 2.5 BID-repeat TTE (9) Hypokalemia Problem Text: 01/05: Potassium down to 3.8 today from 4.1 yesterday. Continue to monitor daily. 01/02: Potassium of 4.3 today, continue to monitor 01/01: Potassium of 3.2 today, order placed for KCl 40 meqs 2 doses 12/27: Potassium of 3.4 today, order placed for 40 meqs of oral KCl 2 doses 12/25: Potassium of 3.1 today. Orders placed for K run 1, 40 meqs of oral KCl 2 doses. Repeat BMP tomorrow. Continue to monitor (10) Seizure disorder Status: Chronic Problem Text: 12/25: CSF PCR negative, repeat CSF Gram stain and culture was negative, anaerobic culture negative, blood culture 1 no growth after 24 hours 12/22: CSF culture did not show any organisms, CSF PCR still pending 12/21/2016: LP completed a 12/20/2016. Patient has some soreness in the back around puncture site. CSF culture pending. 2 focus 2 brain tumor resection 12/[address] head c stable STS/fluid collection seen on 12/18 CT-case dw Dr. Jordan who agrees favors fluid is 2 to necrotic tissue, but given fever/MS change, agrees c LP (as did Dr. Castillo)-case dw c Dr. Arturo Foster who wanted clearance from [facility] 12/19 Dr. Sharon wright leve to 1000 BID given sz episode-partially 2 UTI/hypoNa /? fluid collection 12/19 EEG This EEG in awake, drowsy states, stage 1 and 2 sleep is abnormal due to presence of left temporal intermittent rhythmic delta activity/temporal intermittent rhythmic delta activity (TIRDA) with separate to left central head region consistent with focal cortical structural or functional abnormality with epileptic potential. No clinical or electrographic seizures were recorded. Clinical correlation is recommended. DD: KERRI VINSON MD 12/20/16 0658 12/18 CT head The patient is status post resection of a left temporal lobe tumor. There is postoperative change in the posterior left temporal lobe with decreased mass effect compared to the previous study. There is increased soft tissue swelling and fluid overlying the craniotomy site. (11) Anemia Status: Chronic Problem Specific Plan: Monitor Clinically Problem Text: 01/05: Hemoglobin at 9.5 today from 10.6 yesterday. Continue to monitor daily. 01/01: Hemoglobin stable at 9.8 12/29: Hemoglobin stable at 10.8 12/27: Hemoglobin stable at 10.3 12/25: Hemoglobin stable at 10.5 12/23 - No labs ordered, will obtain. Hgb had trended from 10.8 12/21 to 9.7 12/21/2016: Hemoglobin improving today, 10.8. caution on chronic po steroid (on panto 40 QD for px) 12/20 hgb down to 9.4 (10.2, 11.2)-check HO baseline hgb 12s (12/09 wt 69, 12/20 79) On Supplemental B12 and Iron. 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 Patient was set up for biopsy of the nodule to rule out primary lesion. The nodule could not be biopsied by interventional radiology secondary to size. Dr. Morales noted that the lesion was unlikely a primary metastatic lesion. Patient proceeded to have a biopsy of her brain mass which resulted in glioblastoma. Lung nodule will need to be followed as outpatient. 11/24/2016: I reconfirmed this assessment with Dr. 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 Proceed with brain mass bx and pathology prior to lung nodule eval. 11/17/2016: Pulmonology, informal consult, advised against bronchoscopy. Recommends interventional to see if can get to nodule. Dr. Jordan is requesting that we strongly consider working up this lung nodule while she is in the hospital. He has a strong clinical suspicion that the brain lesion is metastatic. Additionally if she has a primary lung cancer it may change his recommendation to do an excisional bx of the brain lesion which almost assuredly leave her with some weakness and speech deficits. Tomorrow we should contact IR and/or Pulm to see whether CT guided bx or navigational bronchoscopy with bx is the best way to get a sample of this lesion. ------ CT Chest: 14 mm nodule in the anterior segment of the right lower lobe, not present on the comparison study. (15) Brain compression Status: Acute Response to Treatment: Controlled Problem Specific Plan: Monitor Clinically Problem Text: Dr. Jordan, brain edema and swelling treated with the left lateral ventriculostomy on 11/24/16. (16) HTN (hypertension) Status: Chronic Problem Specific Plan: Monitor Clinically Problem Text: BP is well controlled today. Continue current regimen of Bisoprolol (17) CAD (coronary artery disease) Status: Chronic Problem Specific Plan: Monitor Clinically Problem Text: No active symptoms (18) COPD (chronic obstructive pulmonary disease) Status: Chronic Problem Specific Plan: Monitor Clinically Problem Text: Stable Plan/VTE VTE Prophylaxis Ordered?: Yes (TEDs and SCDs) VTE Exclusion Pharmacological: Bleeding Risk (intracranial procedure) Plan Therapy: PT, OT Anticipated Discharge: Home With Services (based on therapy's recommendation) Disposition Family meeting this afternoon to discuss long-term care VS, I&O, 24H, Fishbone Vital Signs/I&O Vital Signs Date Time Temp Pulse Resp B/P (MAP) Pulse Ox O2 Delivery O2 Flow Rate FiO2 01/07/17 08:18 89 116/69 01/07/17 08:00 97.7 17 95 Nasal Cannula 1.0 I&O- Last 24 Hours up to 6 AM 01/08/17 06:00 Intake Total 240 ml Output Total 500 ml Balance -260 ml Laboratory Data 24H LABS Laboratory Tests 2 01/07/17 05:35: Immature Granulocyte % (Auto) , Nucleated Red Blood Cells % (auto) 0.0, Neutrophils 69, Band Neutrophils 1, Lymphocytes (Manual) 26, Monocytes (Manual) 2, Eosinophils (Manual) 1, Metamyelocytes 1H, Platelet Estimate NORMAL CBC/BMP Laboratory Tests 01/07/17 05:35 Red Blood Count 3.58 L, Mean Corpuscular Volume 84.9, Mean Corpuscular Hemoglobin 26.8 L, Mean Corpuscular Hemoglobin Concent 31.6 L, Red Cell Distribution Width 15.9 H Microbiology Microbiology 12/30/16 Gram Stain - Final, Complete 12/30/16 CSF Culture - Final, Complete GME ATTESTATION GME ATTESTATION My faculty preceptor for this patient encounter was physically present during the encounter and was fully available. All aspects of the patient interview, examination, medical decision making process, and medical care plan development were reviewed and approved by the faculty preceptor. The faculty preceptor is aware and concurs with the plan as stated in the body of this note and will attest to such by his/her cosignature. Attending Note Attending Note family conference with son, daughter, PFS, and other family members present. presented treatment options and plan going forward: shunt placement when Dr. Jordan is ready then options of Palliative care only, radiation, or chemoradiation (as outlined by Dr. Smith). Patient's family seem to have unrealistic expectation of probability of cure that can be achieved by pursuing most aggressive option for care. Likely need for MA coverage reviewed with family to deal with adjunct faculty for medical terminology care issues. EMMA DUFFY DO Jan 07, 2017 11:11 Bradford Coello MD Jan 07, 2017 15:30
[2017-01-07] MEDS: ROSUVASTATIN 10 MG TAB (CRESTOR) PO SCH (21:29)
--- NOTE | 2017-01-07 22:07 | IPN ---
DATE: 01/07/2017 Mrs. Santos seems to be doing much better. She has been off antibiotic now for three days. Vancomycin and meropenem were discontinued on 01/03/2017. She denies any headache or neck stiffness. No confusion, although she did get out of bed and fell trying to go to the bathroom. LABORATORY DATA: White count is 9.8, hemoglobin 10.3, hematocrit 32.8, platelets 277, 69% neutrophils, 13% lymphocytes, 9% monocytes. Sodium 139, potassium 4.1, chloride 106, bicarbonate 25, BUN 32, creatinine 0.9 and CRP 2.89. This was done on 01/04/2017. CSF culture was done 12/30/2016 was final no growth, 12/23/2016 had Propionobacterium Acnes which is few. Culture was completed on 01/02/2017. IMPRESSION: 1. 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 The patient has received two weeks of IV vancomycin and meropenem, possibly infection related to Propionibacterium acne. The patient is doing well with normal white count and afebrile. 2. Brain cancer Further treatment will depend on oncology and radiation/oncology. PLAN: Infectious disease signing off. MTDD
[2017-01-08] VITALS (8 sets, daily range): BP systolic 104–137; BP diastolic 50–68
[2017-01-08] MEDS: ALBUTEROL SULFATE 2.5 MG/0.5 ML INH NEB SOLN NEB SCH ×4 (01:29→21:15)
[2017-01-08] MEDS: SODIUM CHLORIDE 0.9% INJ 10 ML SYR IV SCH ×3 (06:00→21:26)
[2017-01-08 06:19] LABS: MEAN CORPUSCULAR HEMOGLOBIN 26.8 pg (27.0-33.0); MEAN CORPUSCULAR HGB CONC 31.3 g/dl (32.0-36.5); MEAN CORPUSCULAR VOLUME 85.8 fl (80.0-96.0); PLATELET COUNT, AUTOMATED 295 10^3/uL (150-450); RED CELL DISTRIBUTION WIDTH 16.1 % (11.5-14.5); WHITE BLOOD COUNT 10.4 10^3/uL (4.0-10.0)
[2017-01-08 06:22] LABS: POSITIVE MORPH POS FLAG
[2017-01-08 06:23] LABS: ADD MANUAL DIFFER YES; DIFF SLIDE NUMBER 23; POS COUNT POS FLAG
[2017-01-08 06:55] LABS: EOSINOPHILS 1 % (0-5)
[2017-01-08 06:57] LABS: ANISOCYTOSIS 1+
[2017-01-08] MEDS: SUCRALFATE SUSP 1GM/10ML UD PO SCH ×4 (07:35→21:25)
[2017-01-08] MEDS: ONDANSETRON 4 MG ORAL DISINTEGRATING TAB (S0181) PO SCH ×3 (07:35→16:53)
[2017-01-08 08:19] LABS: ANION GAP 4 MEQ/L (8-16); BLOOD UREA NITROGEN 21 MG/DL (7-18); CARBON DIOXIDE LEVEL 37 MEQ/L (21-32); CHLORIDE LEVEL 101 MEQ/L (98-107); CREATININE FOR GFR 0.61 MG/DL (0.55-1.02); GLOMERULAR FILTRATION RATE > 60.0 (>39); GLUCOSE, FASTING 106 MG/DL (83-110); POTASSIUM SERUM 4.1 MEQ/L (3.5-5.1); SODIUM LEVEL 142 MEQ/L (136-145)
[2017-01-08] MEDS: BUDESONIDE 0.5 MG/2 ML INHALATION SUSPENSION INH SCH ×2 (08:53→21:15)
[2017-01-08] MEDS: PANTOPRAZOLE 40MG TAB (PROTONIX) PO SCH (09:30)
[2017-01-08] MEDS: CALCIUM/VITAMIN D 500 MG TAB PO SCH ×2 (09:30→21:25)
[2017-01-08] MEDS: NYSTATIN 100,000 UNITS/GM TOPICAL PWD 15 GM TOP SCH ×2 (09:30→21:26)
[2017-01-08] MEDS: MIRALAX *UNIT DOSE* 17GM PACKET PO SCH (09:30)
[2017-01-08] MEDS: BISOPROLOL FUMARATE 5 MG TAB PO SCH ×2 (09:30→21:26)
[2017-01-08] MEDS: OLANZapine 2.5MG TABLET PO SCH ×2 (09:30→21:26)
[2017-01-08] MEDS: levETIRAcetam 250MG TABLET (KEPPRA) PO SCH ×2 (09:30→21:24)
[2017-01-08] MEDS: LORATADINE 10 MG TAB PO SCH (09:31)
[2017-01-08] MEDS: CYANOCOBALAMIN 500 MCG TAB PO SCH (09:31)
--- NOTE | 2017-01-08 10:24 | IPNPDOC ---
Subjective Date Seen The patient was seen on 01/08/17. Subjective Chief Complaint/HPI The patient is a 76-year-old female admitted with a reason for visit of Brain Mass. Events since last encounter Patient states that she feels okay today, she does not have any acute concerns today Constitutional: Denies: Chills, Fever ENT: Denies: Head Aches Pulmonary: Denies: Dyspnea Cardiovascular: Denies: Chest Pain Objective Physical Examination General Exam: Positive: Alert, No Acute Distress Chest Exam: Positive: Clear to auscultation, Normal air movement, Negative: Rales, Rhonchi, Wheezing Heart Exam: Positive: Rate Normal, Irregular Rhythm, Normal S1, Normal S2, Negative: Gallops, Murmurs, Rubs Telemetry: Positive: Atrial fibrillation Abdomen Exam: Positive: Normal bowel sounds, Soft, Negative: Tenderness, Hepatospenomegaly, Mass Extremity Exam: Negative: Edema Assessment /Plan Problems (1) Leukocytosis Status: Acute Problem Text: 01/08: White blood cell count has risen to 10.4 today, continue to monitor 01/07: White blood cell count of 8.9 off of antibiotics, continue to monitor (2) Glioblastoma multiforme Status: Chronic Problem Text: 01/08: A family visit was held yesterday, at this time family believes that they will be able to provide 24 7 care for her once she is discharged. There has been talk about patient potentially having a REGULATORY AFFAIRS SPECIALIST shunt placed early next week. 01/06/17 - per Neurosurgery 11/24/16 sp Stent-based frameless stereotactic left posterior temporal-parietal craniotomy with microsurgical resection of large mass, cranioplasty, and marked brain edema and swelling treated with the left lateral ventriculostomy for Left temporal-parietal GBM with brain swelling by Dr. Jordan (3) Regurgitation of food Problem Text: 01/07: Patient having some regurgitation while examining patient , continue to monitor 01/04: Per nursing most of the nausea happens when the patient tells them she is nervous. She has been nauseated today, but was able to keep down lunch and a snack. I have increased her olanzapine to BId, and have recommended that she take smaller bites and eat more slowly. Her family members do admit that she tends to "ibarra down food." chronic PP NBNB vomiting p solids-favor central nausea and gastritis-induced by anorexia, chronic po steroids, abx effect 01/03 changed ondansetron OD 4 AC TID 30 mins prior to meals, continue panto 40 qAM and + Carafate 1 AC TID/QHS, last day of vanco/meropen 01/02 [address] consulted (4) Hypotension Status: Acute Response to Treatment: Stable Problem Text: 01/07: Blood pressure stable, continue to monitor 01/05: Stable today with pressures around 115-120/70-80. 01/04: Stable, today 103/54 01/03: Stable, continue dexamethasone 01/02: Blood pressure stable at 108/57 today, continue dexamethasone 01/01: Blood pressure 103/62 today, lowest blood pressure over last 24 hours 90/ 50. Patient has been stable for about the last 24 hours. Continue dexamethasone. 12/31/2016: soft BP this am 94/50. 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 01/04: Patient is awake, alert and able to answer questions appropriately. 01/03: Somnolent and easily arousable, verbal and able to answer questions appropriately 01/02: Patient easily arousable today, verbal and able to answer questions appropriately 01/01: Patient initially sleepy but arousable on examination. Verbal and able to answer questions. Her changes in mental status appear to be secondary to her neurological condition. 12/31: Change in responsiveness compared to yesterday. CT head and chest today. Dr. Jordan, notified and will eval patient. (6) Septic shock Status: Resolved Problem Text: 01/06 - BP variable but overall stable on Bisoprolol 01/03: Final day of vancomycin and meropenem 01/01: Continue vancomycin and meropenem until 01/03/17 12/30/2016: see ID note. IV Meropenem and Vancomycin until 01/03/17. 12/29: Patient maintaining blood pressure without levophed. She did have some lower blood pressures around 1:00 this afternoon, she will remain in ICU through tomorrow. If she maintains her blood pressure, does not require restarting of pressors, she may be able to be transferred to PCU tomorrow. If patient does drop her blood pressure, hypotension may be secondary to pituitary dysfunction, consider trial of hydrocortisone 12/28: maintaining bp with 5mcg levophed, CVP 7. Rhythm varies between sinus and afib 12/28: BP down, respiratory difficulties with fluid challenge. Back to ICU with Levophed initiated. New lactic acid ordered stat and for 4 hours. Will check CVP as another indicator of volume status. Code status still Full Code. 12/27: Resolved, patient stable in PCU off of pressors. Continue to monitor for recurrence. 12/25: Patient required initiation of norepinephrine overnight. Blood pressure stable on norepinephrine. A discussion was had with the family regarding her current situation, they were made aware of her recent deterioration. She will remain a full code at this time, family will discuss her further care amongst themselves. 12/24: Developed septic shock today, T-max overnight of 103.4, hypotension with blood pressure as low as 76/42. Patient was given a 30 mL per KG fluid bolus. Patient was transferred to ICU and intensive care was consulted. (7) Meningitis Status: Resolved Response to Treatment: Stable, Improving Discussed With: Nurse, Patient Problem Specific Plan: Consult Specialist, Monitor Clinically, Repeat Labs Problem Text: 01/03: Final day of vancomycin and meropenem 01/01: Continue Vanco and meropenem until 01/03/17 12/30/2016: see ID note. IV Meropenem and Vancomycin until 01/03/17. 12/28 continue vancomycin and meropenem 12/27: As per infectious disease patient will continue on Vanco and meropenem for a treatment duration of 2 weeks 12/25: CSF PCR negative, repeat CSF Gram stain and culture was negative, anaerobic culture negative, blood culture 1 no growth after 24 hours 12/24: Patient had drain of scalp swelling yesterday which was consistent CSF, showing 718 white blood cells, 95% PMNs, glucose of 15, total protein of 82. She is concurrently being managed by infectious disease, she will continue on vancomycin and meropenem. 12/23: Pt with Nosocomial meningitis, she is being followed by ID. She has had LP with pleocytosis and neutrophils, her T protein is elevated. her cultures have been Neg but she had received Rocephin prior to LP being performed. Vanco/ Meropenam dosing per ID. (8) Diastolic congestive heart failure Permanent Comment: 12/22/16: Echocardiogram showed hyperdynamic left ventricular systolic function, LVEF 75%, atrial flutter. Moderate elevation of pulmonary artery systolic pressure. Mild aortic valve sclerosis, mild aortic regurgitation. Negative for mitral regurgitation. Mild left atrial dilation Last Edited By: Alexus Herman PA-C on Dec 23, 2016 10:09 Status: Chronic Problem Text: 12/28: acute decompensation yesterday when attempt to use fluid bolus to support hypotension was made. she developed mild dyspnea, cxr showed vascular engorgement, moved to ICU for levophed to address hypotension. 12/23 appears compensated. 12/21 BNP 1541 c mild decompensation-held IVF and amlo 2.5 BID-repeat TTE (9) Hypokalemia Problem Text: 01/05: Potassium down to 3.8 today from 4.1 yesterday. Continue to monitor daily. 01/02: Potassium of 4.3 today, continue to monitor 01/01: Potassium of 3.2 today, order placed for KCl 40 meqs 2 doses 12/27: Potassium of 3.4 today, order placed for 40 meqs of oral KCl 2 doses 12/25: Potassium of 3.1 today. Orders placed for K run 1, 40 meqs of oral KCl 2 doses. Repeat BMP tomorrow. Continue to monitor (10) Seizure disorder Status: Chronic Problem Text: 12/25: CSF PCR negative, repeat CSF Gram stain and culture was negative, anaerobic culture negative, blood culture 1 no growth after 24 hours 12/22: CSF culture did not show any organisms, CSF PCR still pending 12/21/2016: LP completed a 12/20/2016. Patient has some soreness in the back around puncture site. CSF culture pending. 2 focus 2 brain tumor resection 12/[address] head c stable STS/fluid collection seen on 12/18 CT-case dw Dr. Jordan who agrees favors fluid is 2 to necrotic tissue, but given fever/MS change, agrees c LP (as did Dr. Castillo)-case dw c Dr. Arturo Foster who wanted clearance from [facility] 12/19 Dr. Ali increased leve to 1000 BID given sz episode-partially 2 UTI/hypoNa /? fluid collection 12/19 EEG This EEG in awake, drowsy states, stage 1 and 2 sleep is abnormal due to presence of left temporal intermittent rhythmic delta activity/temporal intermittent rhythmic delta activity (TIRDA) with separate to left central head region consistent with focal cortical structural or functional abnormality with epileptic potential. No clinical or electrographic seizures were recorded. Clinical correlation is recommended. DD: KERRI VINSON MD 12/20/16 0658 12/18 CT head The patient is status post resection of a left temporal lobe tumor. There is postoperative change in the posterior left temporal lobe with decreased mass effect compared to the previous study. There is increased soft tissue swelling and fluid overlying the craniotomy site. (11) Anemia Status: Chronic Problem Specific Plan: Monitor Clinically Problem Text: 01/08: Hemoglobin stable at 9.8 01/05: Hemoglobin at 9.5 today from 10.6 yesterday. Continue to monitor daily. 01/01: Hemoglobin stable at 9.8 12/29: Hemoglobin stable at 10.8 12/27: Hemoglobin stable at 10.3 12/25: Hemoglobin stable at 10.5 12/23 - No labs ordered, will obtain. Hgb had trended from 10.8 12/21 to 9.7 12/21/2016: Hemoglobin improving today, 10.8. caution on chronic po steroid (on panto 40 QD for px) 12/20 hgb down to 9.4 (10.2, 11.2)-check HO baseline hgb 12s (12/09 wt 69, 12/20 79) On Supplemental B12 and Iron. 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 Patient was set up for biopsy of the nodule to rule out primary lesion. The nodule could not be biopsied by interventional radiology secondary to size. Dr. Morales noted that the lesion was unlikely a primary metastatic lesion. Patient proceeded to have a biopsy of her brain mass which resulted in glioblastoma. Lung nodule will need to be followed as outpatient. 11/24/2016: I reconfirmed this assessment with Dr. 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 ([employer]) 11/19/16: Per Interventional Rad: most likely not a primary. Proceed with brain mass bx and pathology prior to lung nodule eval. 11/17/2016: Pulmonology, informal consult, advised against bronchoscopy. Recommends interventional to see if can get to nodule. Dr. Jordan is requesting that we strongly consider working up this lung nodule while she is in the hospital. He has a strong clinical suspicion that the brain lesion is metastatic. Additionally if she has a primary lung cancer it may change his recommendation to do an excisional bx of the brain lesion which almost assuredly leave her with some weakness and speech deficits. Tomorrow we should contact IR and/or Pulm to see whether CT guided bx or navigational bronchoscopy with bx is the best way to get a sample of this lesion. ------ CT Chest: 14 mm nodule in the anterior segment of the right lower lobe, not present on the comparison study. (15) Brain compression Status: Acute Response to Treatment: Controlled Problem Specific Plan: Monitor Clinically Problem Text: Dr. Jordan, brain edema and swelling treated with the left lateral ventriculostomy on 11/24/16. (16) HTN (hypertension) Status: Chronic Problem Specific Plan: Monitor Clinically Problem Text: BP is well controlled today. Continue current regimen of Bisoprolol (17) CAD (coronary artery disease) Status: Chronic Problem Specific Plan: Monitor Clinically Problem Text: No active symptoms (18) COPD (chronic obstructive pulmonary disease) Status: Chronic Problem Specific Plan: Monitor Clinically Problem Text: Stable Plan/VTE VTE Prophylaxis Ordered?: Yes (TEDs and SCDs) VTE Exclusion Pharmacological: Bleeding Risk (intracranial procedure) Plan Therapy: PT, OT Anticipated Discharge: Home With Services (based on therapy's recommendation) VS, I&O, 24H, Fishbone Vital Signs/I&O Vital Signs Date Time Temp Pulse Resp B/P (MAP) Pulse Ox O2 Delivery O2 Flow Rate FiO2 01/08/17 09:30 81 137/68 01/08/17 08:00 99.5 18 94 Nasal Cannula 1.0 Laboratory Data 24H LABS Laboratory Tests 2 01/08/17 05:32: Anion Gap 4L, Glomerular Filtration Rate > 60.0, Blood Urea Nitrogen 21H, Creatinine 0.61, Sodium Level 142, Potassium Level 4.1, Chloride Level 101, Carbon Dioxide Level 37H, Calcium Level 10.0 01/08/17 05:38: Immature Granulocyte % (Auto) , Nucleated Red Blood Cells % (auto) 0.0, Neutrophils 81H, Lymphocytes (Manual) 9L, Monocytes (Manual) 7, Eosinophils ( Manual) 1, Metamyelocytes 1H, Atypical Lymphocytes 1, Platelet Estimate NORMAL, Anisocytosis 1+ CBC/BMP Laboratory Tests 01/08/17 05:32 Calcium Level 10.0 01/08/17 05:38 Red Blood Count 3.65 L, Mean Corpuscular Volume 85.8, Mean Corpuscular Hemoglobin 26.8 L, Mean Corpuscular Hemoglobin Concent 31.3 L, Red Cell Distribution Width 16.1 H Microbiology Microbiology 12/30/16 Gram Stain - Final, Complete 12/30/16 CSF Culture - Final, Complete GME ATTESTATION GME ATTESTATION My faculty preceptor for this patient encounter was physically present during the encounter and was fully available. All aspects of the patient interview, examination, medical decision making process, and medical care plan development were reviewed and approved by the faculty preceptor. The faculty preceptor is aware and concurs with the plan as stated in the body of this note and will attest to such by his/her cosignature. EMMA DUFFY DO Jan 08, 2017 10:24
[2017-01-08] MEDS: ROSUVASTATIN 10 MG TAB (CRESTOR) PO SCH (21:25)
[2017-01-09] VITALS (7 sets, daily range): BP systolic 104–136; BP diastolic 55–83
[2017-01-09] MEDS: ALBUTEROL SULFATE 2.5 MG/0.5 ML INH NEB SOLN NEB SCH ×5 (02:00→23:38)
[2017-01-09] MEDS: SODIUM CHLORIDE 0.9% INJ 10 ML SYR IV SCH ×3 (05:37→21:38)
[2017-01-09 05:46] LABS: MEAN CORPUSCULAR HEMOGLOBIN 26.1 pg (27.0-33.0); MEAN CORPUSCULAR HGB CONC 31.1 g/dl (32.0-36.5); PLATELET COUNT, AUTOMATED 296 10^3/uL (150-450); WHITE BLOOD COUNT 15.5 10^3/uL (4.0-10.0)
[2017-01-09 06:09] LABS: ANION GAP 4 MEQ/L (8-16); BLOOD UREA NITROGEN 24 MG/DL (7-18); CALCIUM LEVEL 9.6 MG/DL (8.8-10.2); CARBON DIOXIDE LEVEL 36 MEQ/L (21-32); CHLORIDE LEVEL 102 MEQ/L (98-107); CREATININE FOR GFR 0.66 MG/DL (0.55-1.02); GLOMERULAR FILTRATION RATE > 60.0 (>39); GLUCOSE, FASTING 107 MG/DL (83-110); POTASSIUM SERUM 3.9 MEQ/L (3.5-5.1); SODIUM LEVEL 142 MEQ/L (136-145)
[2017-01-09 06:16] LABS: ADD MANUAL DIFFER YES; DIFF SLIDE NUMBER 12; POS COUNT POS FLAG; POSITIVE MORPH POS FLAG
[2017-01-09 06:46] LABS: ANISOCYTOSIS 1+
[2017-01-09] MEDS: SUCRALFATE SUSP 1GM/10ML UD PO SCH ×4 (07:57→21:39)
[2017-01-09] MEDS: ONDANSETRON 4 MG ORAL DISINTEGRATING TAB (S0181) PO SCH ×3 (07:57→16:49)
[2017-01-09] MEDS: BUDESONIDE 0.5 MG/2 ML INHALATION SUSPENSION INH SCH ×2 (08:56→20:54)
[2017-01-09] MEDS: BISOPROLOL FUMARATE 5 MG TAB PO SCH ×2 (09:00→21:37)
[2017-01-09] MEDS ORDERED: PROMETHAZINE INJ 25 MG/ML VIAL (J2550) IV ONE (09:15)
--- NOTE | 2017-01-09 10:11 | IPNPDOC ---
Subjective Date Seen The patient was seen on 01/09/17. Subjective Chief Complaint/HPI The patient is a 76-year-old female admitted with a reason for visit of Brain Mass. Events since last encounter Nursing reports vomiting after most meals. Nausea not relieved by zofran No headache. Vision a little blurry at times Constitutional: Denies: Chills, Fever Eyes: Reports: Vision change ENT: Denies: Head Aches Pulmonary: Denies: Dyspnea, Cough Cardiovascular: Denies: Chest Pain, Palpitations Gastrointestinal: Reports: Nausea, Vomiting, Denies: Abdominal Pain, Diarrhea, Constipation (+ BM yesterday) Objective Physical Examination General Exam: Positive: Alert (awake, oriented), Mild Distress (nauseated) Chest Exam: Positive: Clear to auscultation, Normal air movement, Negative: Rales, Rhonchi, Wheezing Heart Exam: Positive: Rate Normal, Irregular Rhythm, Normal S1, Normal S2, Negative: Gallops, Murmurs, Rubs Telemetry: Positive: Atrial fibrillation Abdomen Exam: Positive: Normal bowel sounds, Soft, Negative: Tenderness, Hepatospenomegaly, Mass Extremity Exam: Negative: Edema Assessment /Plan Problems (1) Cerebral ventriculitis Status: Resolved Problem Text: s/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 Phenergan given x1 this am Cont. Carafate check liver enzymes and pancreatic enzymes Dr. Coello spoke with Dr. Jordan who recommends having 40 cc CSF removed/spinal tap with repeat cultures etc. If n/v improves, then will need to consider shunt (3) Atrial fibrillation and flutter Status: Acute Problem Text: Telemetry has shown A-fib/Flutter since 12/22. Echo 12/22 showed a-flutter LA 4 cm Rate controlled Not candidate for anticoagulation until after neurosurgical procedure (4) Leukocytosis Status: Acute Problem Text: 01/09 - WBC rising - up to 15.5 today Last Abx 01/03 Dr. Castillo following - await her input 01/08: White blood cell count has risen to 10.4 today, continue to monitor 01/07: White blood cell count of 8.9 off of antibiotics, continue to monitor (5) Glioblastoma multiforme Status: Chronic Problem Text: 01/09 - Family is unde rthe impression that [employer] shunt planned for early next week. Dr. Jordan's notes over last few days reviewed - no clear discussion of plan 01/08: A family visit was held yesterday, at this time family believes that they will be able to provide 24 7 care for her once she is discharged. There has been talk about patient potentially having a [employer] shunt placed early next week. 01/06/17 - per Neurosurgery 11/24/16 sp Stent-based frameless stereotactic left posterior temporal-parietal craniotomy with microsurgical resection of large mass, cranioplasty, and marked brain edema and swelling treated with the left lateral ventriculostomy for Left temporal-parietal GBM with brain swelling by Dr. Jordan (6) Regurgitation of food Problem Text: 01/07: Patient having some regurgitation while examining patient , continue to monitor 01/04: Per nursing most of the nausea happens when the patient tells them she is nervous. She has been nauseated today, but was able to keep down lunch and a snack. I have increased her olanzapine to BId, and have recommended that she take smaller bites and eat more slowly. Her family members do admit that she tends to "ibarra down food." chronic PP NBNB vomiting p solids-favor central nausea and gastritis-induced by anorexia, chronic po steroids, abx effect 01/03 changed ondansetron OD 4 AC TID 30 mins prior to meals, continue panto 40 qAM and + Carafate 1 AC TID/QHS, last day of vanco/meropen 01/[address] (7) Hypotension Status: Acute Response to Treatment: Stable Problem Text: 01/07: Blood pressure stable, continue to monitor 01/05: Stable today with pressures around 115-120/70-80. 01/04: Stable, today 103/54 01/03: Stable, continue dexamethasone 01/02: Blood pressure stable at 108/57 today, continue dexamethasone 01/01: Blood pressure 103/62 today, lowest blood pressure over last 24 hours 90/ 50. Patient has been stable for about the last 24 hours. Continue dexamethasone. 12/31/2016: soft BP this am 94/50. 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 01/04: Patient is awake, alert and able to answer questions appropriately. 01/03: Somnolent and easily arousable, verbal and able to answer questions appropriately 01/02: Patient easily arousable today, verbal and able to answer questions appropriately 01/01: Patient initially sleepy but arousable on examination. Verbal and able to answer questions. Her changes in mental status appear to be secondary to her neurological condition. 12/31: Change in responsiveness compared to yesterday. CT head and chest today. Dr. Jordan, notified and will eval patient. (9) Septic shock Status: Resolved Problem Text: 01/06 - BP variable but overall stable on Bisoprolol 01/03: Final day of vancomycin and meropenem 01/01: Continue vancomycin and meropenem until 01/03/17 12/30/2016: see ID note. IV Meropenem and Vancomycin until 01/03/17. 12/29: Patient maintaining blood pressure without levophed. She did have some lower blood pressures around 1:00 this afternoon, she will remain in ICU through tomorrow. If she maintains her blood pressure, does not require restarting of pressors, she may be able to be transferred to PCU tomorrow. If patient does drop her blood pressure, hypotension may be secondary to pituitary dysfunction, consider trial of hydrocortisone 12/28: maintaining bp with 5mcg levophed, CVP 7. Rhythm varies between sinus and afib 12/28: BP down, respiratory difficulties with fluid challenge. Back to ICU with Levophed initiated. New lactic acid ordered stat and for 4 hours. Will check CVP as another indicator of volume status. Code status still Full Code. 12/27: Resolved, patient stable in PCU off of pressors. Continue to monitor for recurrence. 12/25: Patient required initiation of norepinephrine overnight. Blood pressure stable on norepinephrine. A discussion was had with the family regarding her current situation, they were made aware of her recent deterioration. She will remain a full code at this time, family will discuss her further care amongst themselves. 12/24: Developed septic shock today, T-max overnight of 103.4, hypotension with blood pressure as low as 76/42. Patient was given a 30 mL per KG fluid bolus. Patient was transferred to ICU and intensive care was consulted. (10) Meningitis Status: Resolved Response to Treatment: Stable, Improving Discussed With: Nurse, Patient Problem Specific Plan: Consult Specialist, Monitor Clinically, Repeat Labs Problem Text: 01/03: Final day of vancomycin and meropenem 01/01: Continue Vanco and meropenem until 01/03/17 12/30/2016: see ID note. IV Meropenem and Vancomycin until 01/03/17. 12/28 continue vancomycin and meropenem 12/27: As per infectious disease patient will continue on Vanco and meropenem for a treatment duration of 2 weeks 12/25: CSF PCR negative, repeat CSF Gram stain and culture was negative, anaerobic culture negative, blood culture 1 no growth after 24 hours 12/24: Patient had drain of scalp swelling yesterday which was consistent CSF, showing 718 white blood cells, 95% PMNs, glucose of 15, total protein of 82. She is concurrently being managed by infectious disease, she will continue on vancomycin and meropenem. 12/23: Pt with Nosocomial meningitis, she is being followed by ID. She has had LP with pleocytosis and neutrophils, her T protein is elevated. her cultures have been Neg but she had received Rocephin prior to LP being performed. Vanco/ Meropenam dosing per ID. (11) Diastolic congestive heart failure Permanent Comment: 12/22/16: Echocardiogram showed hyperdynamic left ventricular systolic function, LVEF 75%, atrial flutter. Moderate elevation of pulmonary artery systolic pressure. Mild aortic valve sclerosis, mild aortic regurgitation. Negative for mitral regurgitation. Mild left atrial dilation Last Edited By: Alexus Herman PA-C on Dec 23, 2016 10:09 Status: Chronic Problem Text: 12/28: acute decompensation yesterday when attempt to use fluid bolus to support hypotension was made. she developed mild dyspnea, cxr showed vascular engorgement, moved to ICU for levophed to address hypotension. 12/23 appears compensated. 12/21 BNP 1541 c mild decompensation-held IVF and amlo 2.5 BID-repeat TTE (12) Seizure disorder Status: Chronic Problem Text: 12/25: CSF PCR negative, repeat CSF Gram stain and culture was negative, anaerobic culture negative, blood culture 1 no growth after 24 hours 12/22: CSF culture did not show any organisms, CSF PCR still pending 12/21/2016: LP completed a 12/20/2016. Patient has some soreness in the back around puncture site. CSF culture pending. 2 focus 2 brain tumor resection 12/[address] head c stable STS/fluid collection seen on 12/18 CT-case dw Dr. Jordan who agrees favors fluid is 2 to necrotic tissue, but given fever/MS change, agrees c LP (as did Dr. Castillo)-case dw c Dr. Arturo Foster who wanted clearance from [facility] 12/19 Dr. Herrera increased leve to 1000 BID given sz episode-partially 2 UTI/hypoNa /? fluid collection 12/19 EEG This EEG in awake, drowsy states, stage 1 and 2 sleep is abnormal due to presence of left temporal intermittent rhythmic delta activity/temporal intermittent rhythmic delta activity (TIRDA) with separate to left central head region consistent with focal cortical structural or functional abnormality with epileptic potential. No clinical or electrographic seizures were recorded. Clinical correlation is recommended. DD: KERRI HERRERA MD 12/20/16 0658 12/18 CT head The patient is status post resection of a left temporal lobe tumor. There is postoperative change in the posterior left temporal lobe with decreased mass effect compared to the previous study. There is increased soft tissue swelling and fluid overlying the craniotomy site. (13) Anemia Status: Chronic Problem Specific Plan: Monitor Clinically Problem Text: 01/08: Hemoglobin stable at 9.8 01/05: Hemoglobin at 9.5 today from 10.6 yesterday. Continue to monitor daily. 01/01: Hemoglobin stable at 9.8 12/29: Hemoglobin stable at 10.8 12/27: Hemoglobin stable at 10.3 12/25: Hemoglobin stable at 10.5 12/23 - No labs ordered, will obtain. Hgb had trended from 10.8 12/21 to 9.7 12/21/2016: Hemoglobin improving today, 10.8. caution on chronic po steroid (on panto 40 QD for px) 12/20 hgb down to 9.4 (10.2, 11.2)-check HO baseline hgb 12s (12/09 wt 69, 12/20 79) On Supplemental B12 and Iron. 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 Patient was set up for biopsy of the nodule to rule out primary lesion. The nodule could not be biopsied by interventional radiology secondary to size. Dr. Morales noted that the lesion was unlikely a primary metastatic lesion. Patient proceeded to have a biopsy of her brain mass which resulted in glioblastoma. Lung nodule will need to be followed as outpatient. 11/24/2016: I reconfirmed this assessment with Dr. 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 Proceed with brain mass bx and pathology prior to lung nodule eval. 11/17/2016: Pulmonology, informal consult, advised against bronchoscopy. Recommends interventional to see if can get to nodule. Dr. Jordan is requesting that we strongly consider working up this lung nodule while she is in the hospital. He has a strong clinical suspicion that the brain lesion is metastatic. Additionally if she has a primary lung cancer it may change his recommendation to do an excisional bx of the brain lesion which almost assuredly leave her with some weakness and speech deficits. Tomorrow we should contact IR and/or Pulm to see whether CT guided bx or navigational bronchoscopy with bx is the best way to get a sample of this lesion. ------ CT Chest: 14 mm nodule in the anterior segment of the right lower lobe, not present on the comparison study. (17) Brain compression Status: Acute Response to Treatment: Controlled Problem Specific Plan: Monitor Clinically Problem Text: Dr. Kidwai, brain edema and swelling treated with the left lateral ventriculostomy on 11/24/16. (18) HTN (hypertension) Status: Chronic Problem Specific Plan: Monitor Clinically Problem Text: BP is well controlled today. Continue current regimen of Bisoprolol (19) CAD (coronary artery disease) Status: Chronic Problem Specific Plan: Monitor Clinically Problem Text: No active symptoms (20) COPD (chronic obstructive pulmonary disease) Status: Chronic Problem Specific Plan: Monitor Clinically Problem Text: Stable Plan/VTE VTE Prophylaxis Ordered?: Yes (TEDs and SCDs) VTE Exclusion Pharmacological: Bleeding Risk (intracranial procedure) Plan Therapy: PT, OT Anticipated Discharge: Home With Services (based on therapy's recommendation) VS, I&O, 24H, Fishbone Vital Signs/I&O Vital Signs Date Time Temp Pulse Resp B/P (MAP) Pulse Ox O2 Delivery O2 Flow Rate FiO2 01/09/17 04:00 97.0 87 20 126/74 (91) 95 Nasal Cannula 1.0 Laboratory Data 24H LABS Laboratory Tests 2 01/09/17 05:21: Immature Granulocyte % (Auto) , Nucleated Red Blood Cells % (auto) 0.0, Neutrophils 81H, Lymphocytes (Manual) 11L, Monocytes (Manual) 7, Atypical Lymphocytes 1, Platelet Estimate NORMAL, Hypochromasia , Anisocytosis 1+, Anion Gap 4L, Glomerular Filtration Rate > 60.0, Blood Urea Nitrogen 24H, Creatinine 0.66, Sodium Level 142, Potassium Level 3.9, Chloride Level 102, Carbon Dioxide Level 36H, Calcium Level 9.6 CBC/BMP Laboratory Tests 01/09/17 05:21 Red Blood Count 3.94 L, Mean Corpuscular Volume 84.0, Mean Corpuscular Hemoglobin 26.1 L, Mean Corpuscular Hemoglobin Concent 31.1 L, Red Cell Distribution Width 16.0 H, Calcium Level 9.6 Microbiology Microbiology 12/30/16 Gram Stain - Final, Complete 12/30/16 CSF Culture - Final, Complete NEVAEH MORROW PA-C Jan 09, 2017 10:11
[2017-01-09] MEDS: NYSTATIN 100,000 UNITS/GM TOPICAL PWD 15 GM TOP SCH ×2 (10:19→21:38)
[2017-01-09] MEDS: MIRALAX *UNIT DOSE* 17GM PACKET PO SCH (10:20)
[2017-01-09] MEDS: CYANOCOBALAMIN 500 MCG TAB PO SCH (10:20)
[2017-01-09] MEDS: levETIRAcetam 250MG TABLET (KEPPRA) PO SCH ×2 (10:20→21:36)
[2017-01-09] MEDS: CALCIUM/VITAMIN D 500 MG TAB PO SCH ×2 (10:21→21:37)
[2017-01-09] MEDS: OLANZapine 2.5MG TABLET PO SCH ×2 (10:21→21:36)
[2017-01-09] MEDS: PANTOPRAZOLE 40MG TAB (PROTONIX) PO SCH (10:21)
[2017-01-09] MEDS: LORATADINE 10 MG TAB PO SCH (10:21)
[2017-01-09 11:48] LABS: ALBUMIN 2.4 GM/DL (3.2-5.2); ALBUMIN/GLOBULIN RATIO 0.65 (1.00-1.93); ALKALINE PHOSPHATASE 53 U/L (45-117); ALT/SGPT 19 U/L (12-78); AMYLASE 70 U/L (25-115); AST/SGOT 17 U/L (7-37); BILIRUBIN,DIRECT < 0.1 MG/DL (0.0-0.2); BILIRUBIN,TOTAL 0.3 MG/DL (0.2-1.0); TOTAL PROTEIN 6.1 GM/DL (6.4-8.2)
--- NOTE | 2017-01-09 12:51 | REP ---
Clinical: Postprandial pain and nausea. Technique: Real time christian scale and color evaluation using curved array transducer. Findings: Liver and pancreas are normal in contour, size, echogenicity without focal hepatic or pancreatic lesions identified. The patient is status post cholecystectomy and there is no evidence for biliary ductal dilatation and the common bile duct measures 3.6 mm diameter. The right kidney is echogenic without hydronephrosis and measures 10.4 x 4.5 x 5.0 cm. No ascites in the visualized right upper quadrant. Impression: Findings to suggest age-related renal disease. Evidence of prior cholecystectomy. Otherwise normal right upper quadrant. Signed by Grady Stewart MD 01/09/2017 12:42 P
[2017-01-09] MEDS ORDERED: LIDOCAINE 1% MDV 20ML VIAL As Ordered ONE (15:10)
[2017-01-09 16:46] LABS: APPEARANCE, CSF CLEAR (CLEAR); COLOR, CSF COLORLESS (COLORLESS); CSF TUBE# CELL CNT TUBE 2
[2017-01-09 16:47] LABS: CSF DIFF IF INDICATED? YES (NO)
[2017-01-09 17:07] LABS: GLUCOSE CSF 50 MG/DL (40-75)
[2017-01-09] MEDS: ACETAMINOPHEN 500 MG TAB PO PRN (21:36)
[2017-01-09] MEDS: ROSUVASTATIN 10 MG TAB (CRESTOR) PO SCH (21:36)
[2017-01-10] MEDS: SODIUM CHLORIDE 0.9% INJ 10 ML SYR IV SCH ×3 (05:43→21:21)
[2017-01-10 06:00] VITALS: BP 131/62
[2017-01-10 06:13] LABS: MEAN CORPUSCULAR HEMOGLOBIN 26.7 pg (27.0-33.0); MEAN CORPUSCULAR HGB CONC 31.8 g/dl (32.0-36.5); MEAN CORPUSCULAR VOLUME 84.1 fl (80.0-96.0); PLATELET COUNT, AUTOMATED 286 10^3/uL (150-450); RED CELL DISTRIBUTION WIDTH 16.2 % (11.5-14.5); WHITE BLOOD COUNT 14.9 10^3/uL (4.0-10.0)
[2017-01-10 06:27] LABS: ADD MANUAL DIFFER YES; DIFF SLIDE NUMBER 7; POS COUNT POS FLAG; POSITIVE MORPH POS FLAG
[2017-01-10 06:33] LABS: ANION GAP 5 MEQ/L (8-16); BLOOD UREA NITROGEN 27 MG/DL (7-18); CARBON DIOXIDE LEVEL 35 MEQ/L (21-32); CHLORIDE LEVEL 102 MEQ/L (98-107); CREATININE FOR GFR 0.55 MG/DL (0.55-1.02); GLOMERULAR FILTRATION RATE > 60.0 (>39); GLUCOSE, FASTING 114 MG/DL (83-110); POTASSIUM SERUM 4.1 MEQ/L (3.5-5.1); SODIUM LEVEL 142 MEQ/L (136-145)
[2017-01-10] MEDS: BUDESONIDE 0.5 MG/2 ML INHALATION SUSPENSION INH SCH ×2 (07:13→19:50)
[2017-01-10] MEDS: ALBUTEROL SULFATE 2.5 MG/0.5 ML INH NEB SOLN NEB SCH ×4 (07:13→20:57)
[2017-01-10 07:17] LABS: BANDS 1 % (< 11)
[2017-01-10 07:18] LABS: ANISOCYTOSIS 1+; POLYCHROMASIA 1+
[2017-01-10] MEDS: CALCIUM/VITAMIN D 500 MG TAB PO SCH ×2 (08:21→21:19)
[2017-01-10] MEDS: levETIRAcetam 250MG TABLET (KEPPRA) PO SCH ×2 (08:21→21:19)
[2017-01-10] MEDS: ONDANSETRON 4 MG ORAL DISINTEGRATING TAB (S0181) PO SCH ×3 (08:22→17:22)
[2017-01-10] MEDS: PANTOPRAZOLE 40MG TAB (PROTONIX) PO SCH (08:23)
[2017-01-10] MEDS: CYANOCOBALAMIN 500 MCG TAB PO SCH (08:24)
[2017-01-10] MEDS: OLANZapine 2.5MG TABLET PO SCH ×2 (08:25→21:19)
[2017-01-10] MEDS: BISOPROLOL FUMARATE 5 MG TAB PO SCH ×2 (08:25→21:20)
[2017-01-10] MEDS: LORATADINE 10 MG TAB PO SCH (08:25)
[2017-01-10] MEDS: MIRALAX *UNIT DOSE* 17GM PACKET PO SCH (09:45)
[2017-01-10] MEDS: SUCRALFATE SUSP 1GM/10ML UD PO SCH ×4 (09:45→21:19)
[2017-01-10] MEDS: NYSTATIN 100,000 UNITS/GM TOPICAL PWD 15 GM TOP SCH ×2 (09:46→21:00)
--- NOTE | 2017-01-10 10:58 | IPNPDOC ---
Subjective Date Seen The patient was seen on 01/10/17. Subjective Chief Complaint/HPI The patient is a 76-year-old female admitted with a reason for visit of Brain Mass. Events since last encounter Patient states that she is feeling okay today. She does not have any acute concerns. Constitutional: Denies: Chills, Fever ENT: Denies: Head Aches Pulmonary: Denies: Dyspnea Cardiovascular: Denies: Chest Pain Objective Physical Examination General Exam: Positive: Alert (awake and able to answer questions appropriately ), No Acute Distress Chest Exam: Positive: Clear to auscultation, Normal air movement, Negative: Rales, Rhonchi, Wheezing Heart Exam: Positive: Rate Normal, Irregular Rhythm, Normal S1, Normal S2, Negative: Gallops, Murmurs, Rubs Abdomen Exam: Positive: Normal bowel sounds, Soft, Negative: Tenderness, Hepatospenomegaly, Mass Extremity Exam: Negative: Edema Assessment /Plan Problems (1) Cerebral ventriculitis Status: Resolved Problem Text: s/p Hospital Aquired Ventriculitis 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 Echo 12/22 showed a-flutter LA 4 cm Rate controlled on bispoprolol Not candidate for anticoagulation until after neurosurgical procedure (4) Leukocytosis Status: Acute Problem Text: 01/10: White blood cell count stable at 14.9, care was discussed with infectious disease since they have signed off on her case. Since she is asymptomatic and afebrile, they do not believe she needs any further intervention at this time. We will continue to monitor. 01/09 - WBC rising - up to 15.5 today Last Abx 01/03 01/08: White blood cell count has risen to 10.4 today, continue to monitor 01/07: White blood cell count of 8.9 off of antibiotics, continue to monitor (5) Glioblastoma multiforme Status: Chronic Problem Text: 01/09 - Family is under the impression that EDUCATION AND TRAINING MANAGER shunt planned for early next week. Dr. Jordan's notes over last few days reviewed - no clear discussion of plan 01/08: A family visit was held yesterday, at this time family believes that they will be able to provide 24/7 care for her once she is discharged. There has been talk about patient potentially having a EDUCATION AND TRAINING MANAGER shunt placed early next week. 01/06/17 - per Neurosurgery 11/24/16 sp Stent-based frameless stereotactic left posterior temporal-parietal craniotomy with microsurgical resection of large mass, cranioplasty, and marked brain edema and swelling treated with the left lateral ventriculostomy for Left temporal-parietal GBM with brain swelling by Dr. Jordan (6) Regurgitation of food Problem Text: 01/07: Patient having some regurgitation while examining patient , continue to monitor 01/04: Per nursing most of the nausea happens when the patient tells them she is nervous. She has been nauseated today, but was able to keep down lunch and a snack. I have increased her olanzapine to BId, and have recommended that she take smaller bites and eat more slowly. Her family members do admit that she tends to "ibarra down food." chronic PP NBNB vomiting p solids-favor central nausea and gastritis-induced by anorexia, chronic po steroids, abx effect 01/03 changed ondansetron OD 4 AC TID 30 mins prior to meals, continue panto 40 qAM and + Carafate 1 AC TID/QHS, last day of vanco/meropen 01/[address] consulted (7) Hypotension Status: Acute Response to Treatment: Stable Problem Text: 01/07: Blood pressure stable, continue to monitor 01/05: Stable today with pressures around 115-120/70-80. 01/04: Stable, today 103/54 01/03: Stable, continue dexamethasone 01/02: Blood pressure stable at 108/57 today, continue dexamethasone 01/01: Blood pressure 103/62 today, lowest blood pressure over last 24 hours 90/ 50. Patient has been stable for about the last 24 hours. Continue dexamethasone. 12/31/2016: soft BP this am 94/50. 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 01/07: Patient not very conversive on examination today 01/06 - Her mental status waxes and wanes - alert at times and groggy at other times. 01/04: Patient is awake, alert and able to answer questions appropriately. 01/03: Somnolent and easily arousable, verbal and able to answer questions appropriately 01/02: Patient easily arousable today, verbal and able to answer questions appropriately 01/01: Patient initially sleepy but arousable on examination. Verbal and able to answer questions. Her changes in mental status appear to be secondary to her neurological condition. 12/31: Change in responsiveness compared to yesterday. CT head and chest today. Dr. Jordan, notified and will eval patient. (9) Septic shock Status: Resolved Problem Text: 01/06 - BP variable but overall stable on Bisoprolol 01/03: Final day of vancomycin and meropenem 01/01: Continue vancomycin and meropenem until 01/03/17 12/30/2016: see ID note. IV Meropenem and Vancomycin until 01/03/17. 12/29: Patient maintaining blood pressure without levophed. She did have some lower blood pressures around 1:00 this afternoon, she will remain in ICU through tomorrow. If she maintains her blood pressure, does not require restarting of pressors, she may be able to be transferred to PCU tomorrow. If patient does drop her blood pressure, hypotension may be secondary to pituitary dysfunction, consider trial of hydrocortisone 12/28: maintaining bp with 5mcg levophed, CVP 7. Rhythm varies between sinus and afib 12/28: BP down, respiratory difficulties with fluid challenge. Back to ICU with Levophed initiated. New lactic acid ordered stat and for 4 hours. Will check CVP as another indicator of volume status. Code status still Full Code. 12/27: Resolved, patient stable in PCU off of pressors. Continue to monitor for recurrence. 12/25: Patient required initiation of norepinephrine overnight. Blood pressure stable on norepinephrine. A discussion was had with the family regarding her current situation, they were made aware of her recent deterioration. She will remain a full code at this time, family will discuss her further care amongst themselves. 12/24: Developed septic shock today, T-max overnight of 103.4, hypotension with blood pressure as low as 76/42. Patient was given a 30 mL per KG fluid bolus. Patient was transferred to ICU and intensive care was consulted. (10) Meningitis Status: Resolved Response to Treatment: Stable, Improving Discussed With: Nurse, Patient Problem Specific Plan: Consult Specialist, Monitor Clinically, Repeat Labs Problem Text: 01/03: Final day of vancomycin and meropenem 01/01: Continue Vanco and meropenem until 01/03/17 12/30/2016: see ID note. IV Meropenem and Vancomycin until 01/03/17. 12/28 continue vancomycin and meropenem 12/27: As per infectious disease patient will continue on Vanco and meropenem for a treatment duration of 2 weeks 12/25: CSF PCR negative, repeat CSF Gram stain and culture was negative, anaerobic culture negative, blood culture 1 no growth after 24 hours 12/24: Patient had drain of scalp swelling yesterday which was consistent CSF, showing 718 white blood cells, 95% PMNs, glucose of 15, total protein of 82. She is concurrently being managed by infectious disease, she will continue on vancomycin and meropenem. 12/23: Pt with Nosocomial meningitis, she is being followed by ID. She has had LP with pleocytosis and neutrophils, her T protein is elevated. her cultures have been Neg but she had received Rocephin prior to LP being performed. Vanco/ Meropenam dosing per ID. (11) Diastolic congestive heart failure Permanent Comment: 12/22/16: Echocardiogram showed hyperdynamic left ventricular systolic function, LVEF 75%, atrial flutter. Moderate elevation of pulmonary artery systolic pressure. Mild aortic valve sclerosis, mild aortic regurgitation. Negative for mitral regurgitation. Mild left atrial dilation Last Edited By: Alexus Herman PA-C on Dec 23, 2016 10:09 Status: Chronic Problem Text: 12/28: acute decompensation yesterday when attempt to use fluid bolus to support hypotension was made. she developed mild dyspnea, cxr showed vascular engorgement, moved to ICU for levophed to address hypotension. 12/23 appears compensated. 12/21 BNP 1541 c mild decompensation-held IVF and amlo 2.5 BID-repeat TTE (12) Seizure disorder Status: Chronic Problem Text: 12/25: CSF PCR negative, repeat CSF Gram stain and culture was negative, anaerobic culture negative, blood culture 1 no growth after 24 hours 12/22: CSF culture did not show any organisms, CSF PCR still pending 12/21/2016: LP completed a 12/20/2016. Patient has some soreness in the back around puncture site. CSF culture pending. 2 focus 2 brain tumor resection 12/[address] head c stable STS/fluid collection seen on 12/18 CT-case dw Dr. Jordan who agrees favors fluid is 2 to necrotic tissue, but given fever/MS change, agrees c LP (as did Dr. Castillo)-case dw c Dr. Atruro Foster who wanted clearance from [facility] 12/19 Dr. Herrera increased leve to 1000 BID given sz episode-partially 2 UTI/hypoNa /? fluid collection 12/19 EEG This EEG in awake, drowsy states, stage 1 and 2 sleep is abnormal due to presence of left temporal intermittent rhythmic delta activity/temporal intermittent rhythmic delta activity (TIRDA) with separate to left central head region consistent with focal cortical structural or functional abnormality with epileptic potential. No clinical or electrographic seizures were recorded. Clinical correlation is recommended. DD: KERRI HERRERA MD 12/20/16 0658 12/18 CT head The patient is status post resection of a left temporal lobe tumor. There is postoperative change in the posterior left temporal lobe with decreased mass effect compared to the previous study. There is increased soft tissue swelling and fluid overlying the craniotomy site. (13) Anemia Status: Chronic Problem Specific Plan: Monitor Clinically Problem Text: 01/10: Hemoglobin stable at 9.4, continue to monitor 01/08: Hemoglobin stable at 9.8 01/05: Hemoglobin at 9.5 today from 10.6 yesterday. Continue to monitor daily. 01/01: Hemoglobin stable at 9.8 12/29: Hemoglobin stable at 10.8 12/27: Hemoglobin stable at 10.3 12/25: Hemoglobin stable at 10.5 12/23 - No labs ordered, will obtain. Hgb had trended from 10.8 12/21 to 9.7 12/21/2016: Hemoglobin improving today, 10.8. caution on chronic po steroid (on panto 40 QD for px) 12/20 hgb down to 9.4 (10.2, 11.2)-check HO baseline hgb 12s (10/31 wt 69, 12/20 79) On Supplemental B12 and Iron. 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 Patient was set up for biopsy of the nodule to rule out primary lesion. The nodule could not be biopsied by interventional radiology secondary to size. Dr. Morales noted that the lesion was unlikely a primary metastatic lesion. Patient proceeded to have a biopsy of her brain mass which resulted in glioblastoma. Lung nodule will need to be followed as outpatient. 11/24/2016: I reconfirmed this assessment with Dr. 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 (portfolio management marketing) 11/19/16: Per Interventional Rad: most likely not a primary. Proceed with brain mass bx and pathology prior to lung nodule eval. 11/17/2016: Pulmonology, informal consult, advised against bronchoscopy. Recommends interventional to see if can get to nodule. Dr. Jordan is requesting that we strongly consider working up this lung nodule while she is in the hospital. He has a strong clinical suspicion that the brain lesion is metastatic. Additionally if she has a primary lung cancer it may change his recommendation to do an excisional bx of the brain lesion which almost assuredly leave her with some weakness and speech deficits. Tomorrow we should contact IR and/or Pulm to see whether CT guided bx or navigational bronchoscopy with bx is the best way to get a sample of this lesion. ------ CT Chest: 14 mm nodule in the anterior segment of the right lower lobe, not present on the comparison study. (17) Brain compression Status: Acute Response to Treatment: Controlled Problem Specific Plan: Monitor Clinically Problem Text: Dr. Jordan, brain edema and swelling treated with the left lateral ventriculostomy on 11/24/16. (18) HTN (hypertension) Status: Chronic Problem Specific Plan: Monitor Clinically Problem Text: BP is well controlled today. Continue current regimen of Bisoprolol (19) CAD (coronary artery disease) Status: Chronic Problem Specific Plan: Monitor Clinically Problem Text: No active symptoms (20) COPD (chronic obstructive pulmonary disease) Status: Chronic Problem Specific Plan: Monitor Clinically Problem Text: Stable Plan/VTE VTE Prophylaxis Ordered?: Yes (TEDs and SCDs) VTE Exclusion Pharmacological: Bleeding Risk (intracranial procedure) Plan Therapy: PT, OT Anticipated Discharge: Home With Services (based on therapy's recommendation) VS, I&O, 24H, Fishbone Vital Signs/I&O Vital Signs Date Time Temp Pulse Resp B/P (MAP) Pulse Ox O2 Delivery O2 Flow Rate FiO2 01/10/17 08:25 64 120/60 01/10/17 06:00 96.1 18 93 Room Air 01/09/17 16:30 1.0 Laboratory Data 24H LABS Laboratory Tests 2 01/09/17 15:25: CSF Appearance CLEAR, CSF Color COLORLESS, CSF WBC (Auto) 38H, CSF RBC (Auto) < 2, CSF Glucose (Tube 1) TUBE 3, CSF Cell Count Tube # TUBE 2, CSF Mononuclear Cells % (Auto) 100.0H, CSF Polynuclear WBCs (%) 0.0, CSF Glucose 50 01/10/17 05:44: Immature Granulocyte % (Auto) , Nucleated Red Blood Cells % (auto) 0.0, Neutrophils 86H, Band Neutrophils 1, Lymphocytes (Manual) 6L, Monocytes (Manual ) 3, Myelocytes 2H, Atypical Lymphocytes 2, Platelet Estimate NORMAL, Polychromasia 1+, Basophilic Stippling 1+, Anisocytosis 1+, Anion Gap 5L, Glomerular Filtration Rate > 60.0, Blood Urea Nitrogen 27H, Creatinine 0.55, Sodium Level 142, Potassium Level 4.1, Chloride Level 102, Carbon Dioxide Level 35H, Calcium Level 10.0 CBC/BMP Laboratory Tests 01/10/17 05:44 Red Blood Count 3.52 L, Mean Corpuscular Volume 84.1, Mean Corpuscular Hemoglobin 26.7 L, Mean Corpuscular Hemoglobin Concent 31.8 L, Red Cell Distribution Width 16.2 H, Calcium Level 10.0 Microbiology Microbiology 01/09/17 Gram Stain - Preliminary, Resulted 01/09/17 CSF Culture, Resulted Pending GME ATTESTATION GME ATTESTATION My faculty preceptor for this patient encounter was physically present during the encounter and was fully available. All aspects of the patient interview, examination, medical decision making process, and medical care plan development were reviewed and approved by the faculty preceptor. The faculty preceptor is aware and concurs with the plan as stated in the body of this note and will attest to such by his/her cosignature. ATTENDING NOTE I saw and examined Ms. Santos this morning; I discussed her care with Dr. Garay and I agree with his note as documented. I was notified that the patient had 6 beats of Vtach on telemetry; Mag level was checked and was found to be WNL, and potassium is normal today - we will continue to monitor with telemetry. Patient has a climbing white count but no acute change in her mental status (which continues to wax and wane, which is expected due to her hydrocephalus) and no increased O2 requirement. We will monitor for now. (KES) EMMA GARAY DO Jan 10, 2017 10:58 KERRI SAWYER MD Jan 10, 2017 13:26
[2017-01-10 11:00] LABS: MAGNESIUM LEVEL 1.9 MG/DL (1.8-2.4)
[2017-01-10 14:00] VITALS: BP 124/58
[2017-01-10] MEDS: ROSUVASTATIN 10 MG TAB (CRESTOR) PO SCH (21:20)
[2017-01-10] MEDS: ACETAMINOPHEN 500 MG TAB PO PRN (21:20)
[2017-01-10 22:00] VITALS: BP 113/57
[2017-01-11] MEDS: ACETAMINOPHEN TAB 650MG DOSE (2X325MG) PO PRN (03:03)
[2017-01-11] MEDS: SODIUM CHLORIDE 0.9% INJ 10 ML SYR IV SCH ×3 (05:27→21:45)
[2017-01-11 05:56] LABS: MEAN CORPUSCULAR HEMOGLOBIN 26.8 pg (27.0-33.0); MEAN CORPUSCULAR HGB CONC 31.7 g/dl (32.0-36.5); MEAN CORPUSCULAR VOLUME 84.7 fl (80.0-96.0); PLATELET COUNT, AUTOMATED 295 10^3/uL (150-450); WHITE BLOOD COUNT 17.6 10^3/uL (4.0-10.0)
[2017-01-11 05:57] LABS: ADD MANUAL DIFFER YES; DIFF SLIDE NUMBER 5; POS COUNT POS FLAG; POSITIVE MORPH POS FLAG
[2017-01-11 06:00] VITALS: BP 116/60
[2017-01-11 06:07] LABS: ANION GAP 5 MEQ/L (8-16); BLOOD UREA NITROGEN 28 MG/DL (7-18); CALCIUM LEVEL 9.5 MG/DL (8.8-10.2); CARBON DIOXIDE LEVEL 33 MEQ/L (21-32); CHLORIDE LEVEL 103 MEQ/L (98-107); GLOMERULAR FILTRATION RATE > 60.0 (>39); GLUCOSE, FASTING 125 MG/DL (83-110); POTASSIUM SERUM 3.7 MEQ/L (3.5-5.1); SODIUM LEVEL 141 MEQ/L (136-145)
[2017-01-11 06:54] LABS: BANDS 1 % (< 11)
[2017-01-11 06:55] LABS: ANISOCYTOSIS 1+
[2017-01-11] MEDS: SUCRALFATE SUSP 1GM/10ML UD PO SCH ×4 (07:56→21:44)
[2017-01-11] MEDS: ONDANSETRON 4 MG ORAL DISINTEGRATING TAB (S0181) PO SCH ×3 (07:57→17:39)
[2017-01-11] MEDS: LORATADINE 10 MG TAB PO SCH (07:57)
[2017-01-11] MEDS: CYANOCOBALAMIN 500 MCG TAB PO SCH (07:57)
[2017-01-11] MEDS: OLANZapine 2.5MG TABLET PO SCH ×2 (07:57→21:46)
[2017-01-11] MEDS: PANTOPRAZOLE 40MG TAB (PROTONIX) PO SCH (07:57)
[2017-01-11] MEDS: levETIRAcetam 250MG TABLET (KEPPRA) PO SCH ×2 (07:57→21:45)
[2017-01-11] MEDS: CALCIUM/VITAMIN D 500 MG TAB PO SCH ×2 (07:58→21:45)
[2017-01-11] MEDS: MIRALAX *UNIT DOSE* 17GM PACKET PO SCH (07:58)
[2017-01-11] MEDS: BISOPROLOL FUMARATE 5 MG TAB PO SCH ×2 (07:59→21:46)
[2017-01-11] MEDS: NYSTATIN 100,000 UNITS/GM TOPICAL PWD 15 GM TOP SCH ×2 (08:00→21:00)
[2017-01-11] MEDS: ALBUTEROL SULFATE 2.5 MG/0.5 ML INH NEB SOLN NEB SCH ×4 (08:23→23:35)
[2017-01-11] MEDS: BUDESONIDE 0.5 MG/2 ML INHALATION SUSPENSION INH SCH ×2 (08:23→20:01)
--- NOTE | 2017-01-11 12:41 | REP ---
Procedure: For guidance for lumbar puncture. History: Altered mental status The procedure was performed under the direct supervision of Dr. Alexander. The risks and benefits of the procedure were explained and informed consent was obtained by the health care proxy. The L2-3 interspace was localized using fluoroscopic guidance. The skin was prepped and draped in a sterile fashion. 1% lidocaine was used as a local anesthetic. Using fluoroscopic guidance a 22-gauge spinal needle was inserted and advanced into the thecal sac. 40 ml of spinal fluid was withdrawn and sent to lab. The the patient tolerated the procedure well and there were no immediate complications. 0.3 minutes of fluoro time was utilized for this procedure. Reviewed by ANIKA Pelaez 01/09/2017 05:56 PSigned by Leroy Alexander MD 01/11/2017 12:31 P
--- NOTE | 2017-01-11 13:28 | IPNPDOC ---
Subjective Date Seen The patient was seen on 01/11/17. Subjective Chief Complaint/HPI The patient is a 76-year-old female admitted with a reason for visit of Brain Mass. Events since last encounter Patient is awake and alert this morning and has no complaints. Constitutional: Denies: Chills, Fever ENT: Denies: Head Aches Pulmonary: Denies: Dyspnea, Cough Cardiovascular: Denies: Chest Pain Gastrointestinal: Denies: Nausea, Vomiting, Abdominal Pain Objective Physical Examination General Exam: Positive: Alert (awake and able to answer questions appropriately ), No Acute Distress Chest Exam: Positive: Clear to auscultation, Normal air movement, Negative: Rales, Rhonchi, Wheezing Heart Exam: Positive: Rate Normal, Irregular Rhythm, Normal S1, Normal S2, Negative: Gallops, Murmurs, Rubs Abdomen Exam: Positive: Normal bowel sounds, Soft, Negative: Tenderness, Hepatospenomegaly, Mass Extremity Exam: Negative: Edema Assessment /Plan Problems (1) Cerebral ventriculitis Status: Resolved Problem Text: s/p Hospital 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 No indication for antibiotics at this time with no clear signs of infection. Continue to monitor. 01/10: White blood cell count stable at 14.9, care was discussed with infectious disease since they have signed off on her case. Since she is asymptomatic and afebrile, they do not believe she needs any further intervention at this time. We will continue to monitor. 01/09 - WBC rising - up to 15.5 today Last Abx 01/03 01/08: White blood cell count has risen to 10.4 today, continue to monitor 01/07: White blood cell count of 8.9 off of antibiotics, continue to monitor (3) Nausea & vomiting Status: Chronic Problem Text: Patient no longer complaining of nausea or vomiting, continue to monitor (4) Atrial fibrillation and flutter Status: Acute Problem Text: Telemetry has shown A-fib/Flutter since 12/22. Echo 12/22 showed a-flutter LA 4 cm Rate controlled on bispoprolol Not candidate for anticoagulation until after neurosurgical procedure (5) Glioblastoma multiforme Status: Chronic Problem Text: 01/09 - Family is under the impression that [employer] shunt planned for early next week. Dr. Jordan's notes over last few days reviewed - no clear discussion of plan 01/08: A family visit was held yesterday, at this time family believes that they will be able to provide 24/7 care for her once she is discharged. 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 01/06/17 - per Neurosurgery 11/24/16 sp Stent-based frameless stereotactic left posterior temporal-parietal craniotomy with microsurgical resection of large mass, cranioplasty, and marked brain edema and swelling treated with the left lateral ventriculostomy for Left temporal-parietal GBM with brain swelling by Dr. Jordan (6) Regurgitation of food Problem Text: 01/11: no further regurgitation seen or noted by nursing staff 01/07: Patient having some regurgitation while examining patient, continue to monitor 01/04: Per nursing most of the nausea happens when the patient tells them she is nervous. She has been nauseated today, but was able to keep down lunch and a snack. I have increased her olanzapine to BId, and have recommended that she take smaller bites and eat more slowly. Her family members do admit that she tends to "ibarra down food." chronic PP NBNB vomiting p solids-favor central nausea and gastritis-induced by anorexia, chronic po steroids, abx effect 01/03 changed ondansetron OD 4 AC TID 30 mins prior to meals, continue panto 40 qAM and + Carafate 1 AC TID/QHS, last day of vanco/meropen 01/[address] (7) Hypotension Status: Acute Response to Treatment: Stable Problem Text: 01/11: BPs remain stable 01/07: Blood pressure stable, continue to monitor 01/05: Stable today with pressures around 115-120/70-80. 01/04: Stable, today 103/54 01/03: Stable, continue dexamethasone 01/02: Blood pressure stable at 108/57 today, continue dexamethasone 01/01: Blood pressure 103/62 today, lowest blood pressure over last 24 hours 90/ 50. Patient has been stable for about the last 24 hours. Continue dexamethasone. 12/31/2016: soft BP this am 94/50. 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 01/07: Patient not very conversive on examination today 01/06 - Her mental status waxes and wanes - alert at times and groggy at other times. 01/04: Patient is awake, alert and able to answer questions appropriately. 01/03: Somnolent and easily arousable, verbal and able to answer questions appropriately 01/02: Patient easily arousable today, verbal and able to answer questions appropriately 01/01: Patient initially sleepy but arousable on examination. Verbal and able to answer questions. Her changes in mental status appear to be secondary to her neurological condition. 12/31: Change in responsiveness compared to yesterday. CT head and chest today. Dr. Jordan, notified and will eval patient. (9) Septic shock Status: Resolved Problem Text: 01/06 - BP variable but overall stable on Bisoprolol 01/03: Final day of vancomycin and meropenem 01/01: Continue vancomycin and meropenem until 01/03/17 12/30/2016: see ID note. IV Meropenem and Vancomycin until 01/03/17. 12/29: Patient maintaining blood pressure without levophed. She did have some lower blood pressures around 1:00 this afternoon, she will remain in ICU through tomorrow. If she maintains her blood pressure, does not require restarting of pressors, she may be able to be transferred to PCU tomorrow. If patient does drop her blood pressure, hypotension may be secondary to pituitary dysfunction, consider trial of hydrocortisone 12/28: maintaining bp with 5mcg levophed, CVP 7. Rhythm varies between sinus and afib 12/28: BP down, respiratory difficulties with fluid challenge. Back to ICU with Levophed initiated. New lactic acid ordered stat and for 4 hours. Will check CVP as another indicator of volume status. Code status still Full Code. 12/27: Resolved, patient stable in PCU off of pressors. Continue to monitor for recurrence. 12/25: Patient required initiation of norepinephrine overnight. Blood pressure stable on norepinephrine. A discussion was had with the family regarding her current situation, they were made aware of her recent deterioration. She will remain a full code at this time, family will discuss her further care amongst themselves. 12/24: Developed septic shock today, T-max overnight of 103.4, hypotension with blood pressure as low as 76/42. Patient was given a 30 mL per KG fluid bolus. Patient was transferred to ICU and intensive care was consulted. (10) Meningitis Status: Resolved Response to Treatment: Stable, Improving Discussed With: Nurse, Patient Problem Specific Plan: Consult Specialist, Monitor Clinically, Repeat Labs Problem Text: 01/03: Final day of vancomycin and meropenem 01/01: Continue Vanco and meropenem until 01/03/17 12/30/2016: see ID note. IV Meropenem and Vancomycin until 01/03/17. 12/28 continue vancomycin and meropenem 12/27: As per infectious disease patient will continue on Vanco and meropenem for a treatment duration of 2 weeks 12/25: CSF PCR negative, repeat CSF Gram stain and culture was negative, anaerobic culture negative, blood culture 1 no growth after 24 hours 12/24: Patient had drain of scalp swelling yesterday which was consistent CSF, showing 718 white blood cells, 95% PMNs, glucose of 15, total protein of 82. She is concurrently being managed by infectious disease, she will continue on vancomycin and meropenem. 12/23: Pt with Nosocomial meningitis, she is being followed by ID. She has had LP with pleocytosis and neutrophils, her T protein is elevated. her cultures have been Neg but she had received Rocephin prior to LP being performed. Vanco/ Meropenam dosing per ID. (11) Diastolic congestive heart failure Permanent Comment: 12/22/16: Echocardiogram showed hyperdynamic left ventricular systolic function, LVEF 75%, atrial flutter. Moderate elevation of pulmonary artery systolic pressure. Mild aortic valve sclerosis, mild aortic regurgitation. Negative for mitral regurgitation. Mild left atrial dilation Last Edited By: Alexus Herman PA-C on Dec 23, 2016 10:09 Status: Chronic Problem Text: 12/28: acute decompensation yesterday when attempt to use fluid bolus to support hypotension was made. she developed mild dyspnea, cxr showed vascular engorgement, moved to ICU for levophed to address hypotension. 12/23 appears compensated. 12/21 BNP 1541 c mild decompensation-held IVF and amlo 2.5 BID-repeat TTE (12) Seizure disorder Status: Chronic Problem Text: 12/25: CSF PCR negative, repeat CSF Gram stain and culture was negative, anaerobic culture negative, blood culture 1 no growth after 24 hours 12/22: CSF culture did not show any organisms, CSF PCR still pending 12/21/2016: LP completed a 12/20/2016. Patient has some soreness in the back around puncture site. CSF culture pending. 2 focus 2 brain tumor resection 12/[address] head c stable STS/fluid collection seen on 12/18 CT-case dw Dr. Jordan who agrees favors fluid is 2 to necrotic tissue, but given fever/MS change, agrees c LP (as did Dr. Castillo)-case dw c Dr. Arturo Foster who wanted clearance from [facility] 12/19 Dr. Herrera increased leve to 1000 BID given sz episode-partially 2 UTI/hypoNa /? fluid collection 12/19 EEG This EEG in awake, drowsy states, stage 1 and 2 sleep is abnormal due to presence of left temporal intermittent rhythmic delta activity/temporal intermittent rhythmic delta activity (TIRDA) with separate to left central head region consistent with focal cortical structural or functional abnormality with epileptic potential. No clinical or electrographic seizures were recorded. Clinical correlation is recommended. DD: KERRI HERRERA MD 12/20/16 0658 12/18 CT head The patient is status post resection of a left temporal lobe tumor. There is postoperative change in the posterior left temporal lobe with decreased mass effect compared to the previous study. There is increased soft tissue swelling and fluid overlying the craniotomy site. (13) Anemia Status: Chronic Problem Specific Plan: Monitor Clinically Problem Text: 01/11: Hemoglobin stable at 9.1, continue to monitor 01/08: Hemoglobin stable at 9.8 01/05: Hemoglobin at 9.5 today from 10.6 yesterday. Continue to monitor daily. 01/01: Hemoglobin stable at 9.8 11/20: Hemoglobin stable at 10.8 12/27: Hemoglobin stable at 10.3 12/25: Hemoglobin stable at 10.5 12/23 - No labs ordered, will obtain. Hgb had trended from 10.8 12/21 to 9.7 12/21/2016: Hemoglobin improving today, 10.8. caution on chronic po steroid (on panto 40 QD for px) 12/20 hgb down to 9.4 (10.2, 11.2)-check HO baseline hgb 12s (12/09 wt 69, 12/20 79) On Supplemental B12 and Iron. 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 Patient was set up for biopsy of the nodule to rule out primary lesion. The nodule could not be biopsied by interventional radiology secondary to size. Dr. Morales noted that the lesion was unlikely a primary metastatic lesion. Patient proceeded to have a biopsy of her brain mass which resulted in glioblastoma. Lung nodule will need to be followed as outpatient. 11/24/2016: I reconfirmed this assessment with Dr. 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 (inspector watch parts) 11/19/16: Per Interventional Rad: most likely not a primary. Proceed with brain mass bx and pathology prior to lung nodule eval. 11/17/2016: Pulmonology, informal consult, advised against bronchoscopy. Recommends interventional to see if can get to nodule. Dr. Jordan is requesting that we strongly consider working up this lung nodule while she is in the hospital. He has a strong clinical suspicion that the brain lesion is metastatic. Additionally if she has a primary lung cancer it may change his recommendation to do an excisional bx of the brain lesion which almost assuredly leave her with some weakness and speech deficits. Tomorrow we should contact IR and/or Pulm to see whether CT guided bx or navigational bronchoscopy with bx is the best way to get a sample of this lesion. ------ CT Chest: 14 mm nodule in the anterior segment of the right lower lobe, not present on the comparison study. (17) Brain compression Status: Acute Response to Treatment: Controlled Problem Specific Plan: Monitor Clinically Problem Text: Dr. Jordan, brain edema and swelling treated with the left lateral ventriculostomy on 11/24/16. (18) HTN (hypertension) Status: Chronic Problem Specific Plan: Monitor Clinically Problem Text: BP is well controlled today. Continue current regimen of Bisoprolol (19) CAD (coronary artery disease) Status: Chronic Problem Specific Plan: Monitor Clinically Problem Text: No active symptoms (20) COPD (chronic obstructive pulmonary disease) Status: Chronic Problem Specific Plan: Monitor Clinically Problem Text: Stable Plan/VTE VTE Prophylaxis Ordered?: Yes (TEDs and SCDs) VTE Exclusion Pharmacological: Bleeding Risk (intracranial procedure) Plan Therapy: PT, OT Anticipated Discharge: Home With Services (based on therapy's recommendation) VS, I&O, 24H, [facility] Vital Signs/I&O Vital Signs Date Time Temp Pulse Resp B/P (MAP) Pulse Ox O2 Delivery O2 Flow Rate FiO2 01/11/17 10:25 Nasal Cannula 1.0 01/11/17 07:59 68 120/62 01/11/17 06:00 97.3 18 96 I&O- Last 24 Hours up to 6 AM 01/12/17 06:00 Intake Total 240 ml Balance 240 ml Laboratory Data 24H LABS Laboratory Tests 2 01/11/17 05:35: Immature Granulocyte % (Auto) , Nucleated Red Blood Cells % (auto) 0.0, Neutrophils 83H, Band Neutrophils 1, Lymphocytes (Manual) 9L, Monocytes (Manual ) 7, Platelet Estimate NORMAL, Basophilic Stippling 2+, Anisocytosis 1+, Anion Gap 5L, Glomerular Filtration Rate > 60.0, Blood Urea Nitrogen 28H, Creatinine 0.60, Sodium Level 141, Potassium Level 3.7, Chloride Level 103, Carbon Dioxide Level 33H, Calcium Level 9.5 CBC/BMP Laboratory Tests 01/11/17 05:35 Red Blood Count 3.39 L, Mean Corpuscular Volume 84.7, Mean Corpuscular Hemoglobin 26.8 L, Mean Corpuscular Hemoglobin Concent 31.7 L, Red Cell Distribution Width 16.0 H, Calcium Level 9.5 Microbiology Microbiology 01/09/17 Gram Stain - Final, Complete 01/09/17 CSF Culture - Final, Complete KERRI SAWYER MD Jan 11, 2017 13:28
[2017-01-11 14:00] VITALS: BP 134/72
[2017-01-11] MEDS: ACETAMINOPHEN 500 MG TAB PO PRN (21:45)
[2017-01-11] MEDS: ROSUVASTATIN 10 MG TAB (CRESTOR) PO SCH (21:45)
[2017-01-11 22:00] VITALS: BP 126/61
[2017-01-12] MEDS: SODIUM CHLORIDE 0.9% INJ 10 ML SYR IV SCH ×2 (05:17→14:00)
[2017-01-12 05:51] LABS: MEAN CORPUSCULAR HEMOGLOBIN 26.4 pg (27.0-33.0); MEAN CORPUSCULAR HGB CONC 31.4 g/dl (32.0-36.5); PLATELET COUNT, AUTOMATED 310 10^3/uL (150-450); RED CELL DISTRIBUTION WIDTH 15.9 % (11.5-14.5)
[2017-01-12 05:52] LABS: ADD MANUAL DIFFER YES; DIFF SLIDE NUMBER 105; POS COUNT POS FLAG; POSITIVE DIFF POS FLAG; POSITIVE MORPH POS FLAG
[2017-01-12 06:00] VITALS: BP 122/56
[2017-01-12 06:12] LABS: ANION GAP 5 MEQ/L (8-16); BLOOD UREA NITROGEN 31 MG/DL (7-18); CALCIUM LEVEL 9.7 MG/DL (8.8-10.2); CARBON DIOXIDE LEVEL 31 MEQ/L (21-32); CHLORIDE LEVEL 105 MEQ/L (98-107); CREATININE FOR GFR 0.52 MG/DL (0.55-1.02); GLOMERULAR FILTRATION RATE > 60.0 (>39); GLUCOSE, FASTING 111 MG/DL (83-110); POTASSIUM SERUM 3.8 MEQ/L (3.5-5.1); SODIUM LEVEL 141 MEQ/L (136-145)
[2017-01-12 06:42] LABS: ANISOCYTOSIS 1+; BANDS 1 % (< 11); POIKILOCYTOSIS 1+
[2017-01-12] MEDS: ALBUTEROL SULFATE 2.5 MG/0.5 ML INH NEB SOLN NEB SCH ×3 (07:09→20:26)
[2017-01-12] MEDS: BUDESONIDE 0.5 MG/2 ML INHALATION SUSPENSION INH SCH ×2 (07:09→20:09)
[2017-01-12] MEDS: SUCRALFATE SUSP 1GM/10ML UD PO SCH ×4 (08:02→20:12)
[2017-01-12] MEDS: MIRALAX *UNIT DOSE* 17GM PACKET PO SCH (08:02)
[2017-01-12 08:03] VITALS: BP 122/56
[2017-01-12] MEDS: CALCIUM/VITAMIN D 500 MG TAB PO SCH ×2 (08:03→20:13)
[2017-01-12] MEDS: levETIRAcetam 250MG TABLET (KEPPRA) PO SCH ×2 (08:03→20:13)
[2017-01-12] MEDS: CYANOCOBALAMIN 500 MCG TAB PO SCH (08:03)
[2017-01-12] MEDS: ONDANSETRON 4 MG ORAL DISINTEGRATING TAB (S0181) PO SCH ×3 (08:03→17:35)
[2017-01-12] MEDS: BISOPROLOL FUMARATE 5 MG TAB PO SCH (08:03)
[2017-01-12] MEDS: OLANZapine 2.5MG TABLET PO SCH ×2 (08:04→20:12)
[2017-01-12] MEDS: PANTOPRAZOLE 40MG TAB (PROTONIX) PO SCH (08:04)
[2017-01-12] MEDS: NYSTATIN 100,000 UNITS/GM TOPICAL PWD 15 GM TOP SCH ×2 (08:04→20:13)
[2017-01-12] MEDS: LORATADINE 10 MG TAB PO SCH (08:04)
[2017-01-12 14:00] VITALS: BP 144/72
--- NOTE | 2017-01-12 14:25 | IPNPDOC ---
Subjective Date Seen The patient was seen on 01/12/17. Subjective Chief Complaint/HPI The patient is a 76-year-old female admitted with a reason for visit of Brain Mass. Events since last encounter Nursing does not report any concerns today. Patient states that she is doing ok today. She does not have any acute concerns. Constitutional: Denies: Chills, Fever ENT: Denies: Head Aches Pulmonary: Denies: Dyspnea Cardiovascular: Denies: Chest Pain Gastrointestinal: Denies: Abdominal Pain Genitourinary: Denies: Dysuria, Hematuria Objective Physical Examination General Exam: Positive: Alert (awake and able to answer questions appropriately ), No Acute Distress Chest Exam: Positive: Clear to auscultation, Diminished, Negative: Rales, Rhonchi, Wheezing Heart Exam: Positive: Rate Normal, Irregular Rhythm, Normal S1, Normal S2, Negative: Gallops, Murmurs, Rubs Abdomen Exam: Positive: Normal bowel sounds, Soft, Negative: Tenderness, Hepatospenomegaly, Mass Extremity Exam: Negative: Edema Assessment /Plan Problems (1) Cerebral ventriculitis Status: Resolved Problem Text: s/p Hospital Aquired 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 She is not having any fevers, not complaining of shortness of breath, urinary pain, suspicion for infectious cause is low. However due to her increased white count we will rule out infectious causes with UA, 2 view chest x-ray and blood cultures. 01/11: WBCs continue to climb, however final culture on CSF from 01/09/17 is negative, she remains afebrile with normal BP/HR, and she does not appear ill; she required some O2 overnight but is saturating well on room air today and lungs are clear on exam. No indication for antibiotics at this time with no clear signs of infection. Continue to monitor. 01/10: White blood cell count stable at 14.9, care was discussed with infectious disease since they have signed off on her case. Since she is asymptomatic and afebrile, they do not believe she needs any further intervention at this time. We will continue to monitor. 01/09 - WBC rising - up to 15.5 today Last Abx 01/03 01/08: White blood cell count has risen to 10.4 today, continue to monitor 01/07: White blood cell count of 8.9 off of antibiotics, continue to monitor (3) Nausea & vomiting Status: Chronic Problem Text: 01/11: Patient no longer complaining of nausea or vomiting, continue to monitor (4) Atrial fibrillation and flutter Status: Acute Problem Text: Telemetry has shown A-fib/Flutter since 12/22. 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 Dr. Jordan's notes over last few days reviewed - no clear discussion of plan 01/08: A family visit was held yesterday, at this time family believes that they will be able to provide 24/7 care for her once she is discharged. There has been talk about patient potentially having a PROGRAM MANAGER [employer]SP[employer] shunt placed early next week. 01/06/17 - per Neurosurgery 11/24/16 sp Stent-based frameless stereotactic left posterior temporal-parietal craniotomy with microsurgical resection of large mass, cranioplasty, and marked brain edema and swelling treated with the left lateral ventriculostomy for Left temporal-parietal GBM with brain swelling by Dr. Jordan (6) Regurgitation of food Problem Text: 01/11: no further regurgitation seen or noted by nursing staff 01/07: Patient having some regurgitation while examining patient, continue to monitor 01/04: Per nursing most of the nausea happens when the patient tells them she is nervous. She has been nauseated today, but was able to keep down lunch and a snack. I have increased her olanzapine to BId, and have recommended that she take smaller bites and eat more slowly. Her family members do admit that she tends to "ibarra down food." chronic PP NBNB vomiting p solids-favor central nausea and gastritis-induced by anorexia, chronic po steroids, abx effect 01/03 changed ondansetron OD 4 AC TID 30 mins prior to meals, continue panto 40 qAM and + Carafate 1 AC TID/QHS, last day of vanco/meropen 01/[address] consulted (7) Hypotension Status: Acute Response to Treatment: Stable Problem Text: 01/11: BPs remain stable 01/07: Blood pressure stable, continue to monitor 01/05: Stable today with pressures around 115-120/70-80. 01/04: Stable, today 103/54 01/03: Stable, continue dexamethasone 01/02: Blood pressure stable at 108/57 today, continue dexamethasone 01/01: Blood pressure 103/62 today, lowest blood pressure over last 24 hours 90/ 50. Patient has been stable for about the last 24 hours. Continue dexamethasone. 12/31/2016: soft BP this am 94/50. 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 01/07: Patient not very conversive on examination today 01/06 - Her mental status waxes and wanes - alert at times and groggy at other times. 01/04: Patient is awake, alert and able to answer questions appropriately. 01/03: Somnolent and easily arousable, verbal and able to answer questions appropriately 01/02: Patient easily arousable today, verbal and able to answer questions appropriately 01/01: Patient initially sleepy but arousable on examination. Verbal and able to answer questions. Her changes in mental status appear to be secondary to her neurological condition. 12/31: Change in responsiveness compared to yesterday. CT head and chest today. Dr. Jordan, notified and will eval patient. (9) Septic shock Status: Resolved Problem Text: 01/06 - BP variable but overall stable on Bisoprolol 01/03: Final day of vancomycin and meropenem 01/01: Continue vancomycin and meropenem until 01/03/17 12/30/2016: see ID note. IV Meropenem and Vancomycin until 01/03/17. 12/29: Patient maintaining blood pressure without levophed. She did have some lower blood pressures around 1:00 this afternoon, she will remain in ICU through tomorrow. If she maintains her blood pressure, does not require restarting of pressors, she may be able to be transferred to PCU tomorrow. If patient does drop her blood pressure, hypotension may be secondary to pituitary dysfunction, consider trial of hydrocortisone 12/28: maintaining bp with 5mcg levophed, CVP 7. Rhythm varies between sinus and afib 12/28: BP down, respiratory difficulties with fluid challenge. Back to ICU with Levophed initiated. New lactic acid ordered stat and for 4 hours. Will check CVP as another indicator of volume status. Code status still Full Code. 12/27: Resolved, patient stable in PCU off of pressors. Continue to monitor for recurrence. 12/25: Patient required initiation of norepinephrine overnight. Blood pressure stable on norepinephrine. A discussion was had with the family regarding her current situation, they were made aware of her recent deterioration. She will remain a full code at this time, family will discuss her further care amongst themselves. 12/24: Developed septic shock today, T-max overnight of 103.4, hypotension with blood pressure as low as 76/42. Patient was given a 30 mL per KG fluid bolus. Patient was transferred to ICU and intensive care was consulted. (10) Meningitis Status: Resolved Response to Treatment: Stable, Improving Discussed With: Nurse, Patient Problem Specific Plan: Consult Specialist, Monitor Clinically, Repeat Labs Problem Text: 01/03: Final day of vancomycin and meropenem 01/01: Continue Vanco and meropenem until 01/03/17 12/30/2016: see ID note. IV Meropenem and Vancomycin until 01/03/17. 12/28 continue vancomycin and meropenem 12/27: As per infectious disease patient will continue on Vanco and meropenem for a treatment duration of 2 weeks 12/25: CSF PCR negative, repeat CSF Gram stain and culture was negative, anaerobic culture negative, blood culture 1 no growth after 24 hours 12/24: Patient had drain of scalp swelling yesterday which was consistent CSF, showing 718 white blood cells, 95% PMNs, glucose of 15, total protein of 82. She is concurrently being managed by infectious disease, she will continue on vancomycin and meropenem. 12/23: Pt with Nosocomial meningitis, she is being followed by ID. She has had LP with pleocytosis and neutrophils, her T protein is elevated. her cultures have been Neg but she had received Rocephin prior to LP being performed. Vanco/ Meropenam dosing per ID. (11) Diastolic congestive heart failure Permanent Comment: 12/22/16: Echocardiogram showed hyperdynamic left ventricular systolic function, LVEF 75%, atrial flutter. Moderate elevation of pulmonary artery systolic pressure. Mild aortic valve sclerosis, mild aortic regurgitation. Negative for mitral regurgitation. Mild left atrial dilation Last Edited By: Alexus Herman PA-C on Dec 23, 2016 10:09 Status: Chronic Problem Text: 12/28: acute decompensation yesterday when attempt to use fluid bolus to support hypotension was made. she developed mild dyspnea, cxr showed vascular engorgement, moved to ICU for levophed to address hypotension. 12/23 appears compensated. 12/21 BNP 1541 c mild decompensation-held IVF and amlo 2.5 BID-repeat TTE (12) Seizure disorder Status: Chronic Problem Text: 12/25: CSF PCR negative, repeat CSF Gram stain and culture was negative, anaerobic culture negative, blood culture 1 no growth after 24 hours 12/22: CSF culture did not show any organisms, CSF PCR still pending 12/21/2016: LP completed a 12/20/2016. Patient has some soreness in the back around puncture site. CSF culture pending. 2 focus 2 brain tumor resection 12/[address] head c stable STS/fluid collection seen on 12/18 CT-case dw Dr. Jordan who agrees favors fluid is 2 to necrotic tissue, but given fever/MS change, agrees c LP (as did Dr. Castillo)-case dw c Dr. Arturo Foster who wanted clearance from [facility] 12/19 Dr. Herrera increased leve to 1000 BID given sz episode-partially 2 UTI/hypoNa /? fluid collection 12/19 EEG This EEG in awake, drowsy states, stage 1 and 2 sleep is abnormal due to presence of left temporal intermittent rhythmic delta activity/temporal intermittent rhythmic delta activity (TIRDA) with separate to left central head region consistent with focal cortical structural or functional abnormality with epileptic potential. No clinical or electrographic seizures were recorded. Clinical correlation is recommended. DD: KERRI HERRERA MD 12/20/16 0658 12/18 CT head The patient is status post resection of a left temporal lobe tumor. There is postoperative change in the posterior left temporal lobe with decreased mass effect compared to the previous study. There is increased soft tissue swelling and fluid overlying the craniotomy site. (13) Anemia Status: Chronic Problem Specific Plan: Monitor Clinically Problem Text: 01/11: Hemoglobin stable at 9.1, continue to monitor 01/08: Hemoglobin stable at 9.8 01/05: Hemoglobin at 9.5 today from 10.6 yesterday. Continue to monitor daily. 01/01: Hemoglobin stable at 9.8 12/29: Hemoglobin stable at 10.8 12/27: Hemoglobin stable at 10.3 12/25: Hemoglobin stable at 10.5 12/23 - No labs ordered, will obtain. Hgb had trended from 10.8 12/21 to 9.7 12/21/2016: Hemoglobin improving today, 10.8. caution on chronic po steroid (on panto 40 QD for px) 12/20 hgb down to 9.4 (10.2, 11.2)-check HO baseline hgb 12s (12/09 wt 69, 12/20 79) On Supplemental B12 and Iron. 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 Patient was set up for biopsy of the nodule to rule out primary lesion. The nodule could not be biopsied by interventional radiology secondary to size. Dr. Morales noted that the lesion was unlikely a primary metastatic lesion. Patient proceeded to have a biopsy of her brain mass which resulted in glioblastoma. Lung nodule will need to be followed as outpatient. 11/24/2016: I reconfirmed this assessment with Dr. 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 (telemarketing agent) 11/19/16: Per Interventional Rad: most likely not a primary. Proceed with brain mass bx and pathology prior to lung nodule eval. 11/17/2016: Pulmonology, informal consult, advised against bronchoscopy. Recommends interventional to see if can get to nodule. Dr. Jordan is requesting that we strongly consider working up this lung nodule while she is in the hospital. He has a strong clinical suspicion that the brain lesion is metastatic. Additionally if she has a primary lung cancer it may change his recommendation to do an excisional bx of the brain lesion which almost assuredly leave her with some weakness and speech deficits. Tomorrow we should contact IR and/or Pulm to see whether CT guided bx or navigational bronchoscopy with bx is the best way to get a sample of this lesion. ------ CT Chest: 14 mm nodule in the anterior segment of the right lower lobe, not present on the comparison study. (17) Brain compression Status: Acute Response to Treatment: Controlled Problem Specific Plan: Monitor Clinically Problem Text: Dr. Jordan, brain edema and swelling treated with the left lateral ventriculostomy on 11/24/16. (18) HTN (hypertension) Status: Chronic Problem Specific Plan: Monitor Clinically Problem Text: BP is well controlled today. Continue current regimen of Bisoprolol (19) CAD (coronary artery disease) Status: Chronic Problem Specific Plan: Monitor Clinically Problem Text: No active symptoms (20) COPD (chronic obstructive pulmonary disease) Status: Chronic Problem Specific Plan: Monitor Clinically Problem Text: Stable Plan/VTE VTE Prophylaxis Ordered?: Yes (TEDs and SCDs) VTE Exclusion Pharmacological: Bleeding Risk (intracranial procedure) Plan Therapy: PT, OT Anticipated Discharge: Home With Services (based on therapy's recommendation) VS, I&O, 24H, Fishbone Vital Signs/I&O Vital Signs Date Time Temp Pulse Resp B/P (MAP) Pulse Ox O2 Delivery O2 Flow Rate FiO2 01/12/17 08:03 122/56 01/12/17 06:00 97.7 65 17 97 Nasal Cannula 2.0 Laboratory Data 24H LABS Laboratory Tests 2 01/12/17 05:40: Immature Granulocyte % (Auto) , White Blood Count 25.0H, Red Blood Count 3.75L, Hemoglobin 9.9L, Hematocrit 31.5L, Mean Corpuscular Volume 84.0, Mean Corpuscular Hemoglobin 26.4L, Mean Corpuscular Hemoglobin Concent 31.4L, Red Cell Distribution Width 15.9H, Platelet Count 310, Monocytes # (Auto) , Nucleated Red Blood Cells % (auto) 0.0, Neutrophils 88H, Band Neutrophils 1, Lymphocytes (Manual) 6L, Monocytes (Manual) 3, Metamyelocytes 1H, Myelocytes 1H , Platelet Estimate NORMAL, Poikilocytosis 1+, Anisocytosis 1+, Anion Gap 5L, Glomerular Filtration Rate > 60.0, Blood Urea Nitrogen 31H, Creatinine 0.52L, Sodium Level 141, Potassium Level 3.8, Chloride Level 105, Carbon Dioxide Level 31, Calcium Level 9.7 CBC/BMP Laboratory Tests 01/12/17 05:40 Red Blood Count 3.75 L, Mean Corpuscular Volume 84.0, Mean Corpuscular Hemoglobin 26.4 L, Mean Corpuscular Hemoglobin Concent 31.4 L, Red Cell Distribution Width 15.9 H, Monocytes # (Auto) , Calcium Level 9.7 Microbiology Microbiology 01/12/17 Blood Culture, Received Pending 01/12/17 Blood Culture, Received Pending 01/09/17 Gram Stain - Final, Complete 01/09/17 CSF Culture - Final, Complete GME ATTESTATION GME ATTESTATION My faculty preceptor for this patient encounter was physically present during the encounter and was fully available. All aspects of the patient interview, examination, medical decision making process, and medical care plan development were reviewed and approved by the faculty preceptor. The faculty preceptor is aware and concurs with the plan as stated in the body of this note and will attest to such by his/her cosignature. EMMA DUFFY DO Jan 12, 2017 14:25
[2017-01-12] MEDS: ACETAMINOPHEN 500 MG TAB PO PRN (15:07)
[2017-01-12] MEDS: ROSUVASTATIN 10 MG TAB (CRESTOR) PO SCH (20:12)
[2017-01-12 22:00] VITALS: BP 101/50
[2017-01-12] MEDS ORDERED: NS 500 ML IV ONE (22:30)
[2017-01-12] MEDS ORDERED: NS 1,000 ML IV SCH (22:30)
[2017-01-12 23:00] VITALS: BP 116/64
[2017-01-13] VITALS: BP 125/64
[2017-01-13 02:00] VITALS: BP 117/57
[2017-01-13] MEDS: ALBUTEROL SULFATE 2.5 MG/0.5 ML INH NEB SOLN NEB SCH ×4 (02:00→20:33)
--- NOTE | 2017-01-13 05:01 | REP ---
Clinical: Leukocytosis and hypoxemia . Comparison: 12/27/2016 . Technique: PA and lateral. Findings: The the patient is status post sternotomy, central line placement, and cholecystectomy. mediastinum and cardiac silhouette are normal. The lung jeronimo demonstrate chronic changes including bibasilar atelectasis without acute consolidation, effusion, or pneumothorax. The skeletal structures are intact and normal. Impression: 1. Chronic-appearing changes. Signed by Grady Stewart MD 01/13/2017 04:53 A
[2017-01-13 06:00] VITALS: BP 119/63
[2017-01-13] MEDS: BUDESONIDE 0.5 MG/2 ML INHALATION SUSPENSION INH SCH ×2 (07:24→20:33)
[2017-01-13] MEDS: SUCRALFATE SUSP 1GM/10ML UD PO SCH ×4 (08:43→20:28)
[2017-01-13] MEDS: levETIRAcetam 250MG TABLET (KEPPRA) PO SCH ×2 (08:43→20:27)
[2017-01-13] MEDS: MIRALAX *UNIT DOSE* 17GM PACKET PO SCH (08:43)
[2017-01-13] MEDS: NYSTATIN 100,000 UNITS/GM TOPICAL PWD 15 GM TOP SCH ×2 (08:43→20:28)
[2017-01-13] MEDS: CALCIUM/VITAMIN D 500 MG TAB PO SCH ×2 (08:44→20:28)
[2017-01-13] MEDS: OLANZapine 2.5MG TABLET PO SCH ×2 (08:44→20:27)
[2017-01-13] MEDS: LORATADINE 10 MG TAB PO SCH (08:44)
[2017-01-13] MEDS: ONDANSETRON 4 MG ORAL DISINTEGRATING TAB (S0181) PO SCH ×3 (08:44→17:10)
[2017-01-13] MEDS: PANTOPRAZOLE 40MG TAB (PROTONIX) PO SCH (08:44)
[2017-01-13] MEDS: CYANOCOBALAMIN 500 MCG TAB PO SCH (08:45)
[2017-01-13 10:00] VITALS: BP 124/58
[2017-01-13 10:23] LABS: MEAN CORPUSCULAR HEMOGLOBIN 26.7 pg (27.0-33.0); MEAN CORPUSCULAR HGB CONC 30.6 g/dl (32.0-36.5); MEAN CORPUSCULAR VOLUME 87.2 fl (80.0-96.0); PLATELET COUNT, AUTOMATED 350 10^3/uL (150-450); RED CELL DISTRIBUTION WIDTH 15.7 % (11.5-14.5); WHITE BLOOD COUNT 26.8 10^3/uL (4.0-10.0)
[2017-01-13 10:24] LABS: ADD MANUAL DIFFER YES; DIFF SLIDE NUMBER 9; POS COUNT POS FLAG; POSITIVE MORPH POS FLAG
[2017-01-13 10:53] LABS: ALBUMIN 1.9 GM/DL (3.2-5.2); ALBUMIN/GLOBULIN RATIO 0.48 (1.00-1.93); ALKALINE PHOSPHATASE 77 U/L (45-117); ALT/SGPT 15 U/L (12-78); ANION GAP 9 MEQ/L (8-16); AST/SGOT 11 U/L (7-37); BILIRUBIN,TOTAL 0.3 MG/DL (0.2-1.0); BLOOD UREA NITROGEN 33 MG/DL (7-18); CALCIUM LEVEL 10.1 MG/DL (8.8-10.2); CARBON DIOXIDE LEVEL 26 MEQ/L (21-32); CHLORIDE LEVEL 104 MEQ/L (98-107); GLOMERULAR FILTRATION RATE > 60.0 (>39); GLUCOSE, FASTING 247 MG/DL (83-110); POTASSIUM SERUM 3.8 MEQ/L (3.5-5.1); SODIUM LEVEL 139 MEQ/L (136-145); TOTAL PROTEIN 5.9 GM/DL (6.4-8.2)
[2017-01-13 10:58] LABS: ANISOCYTOSIS 1+
--- NOTE | 2017-01-13 12:04 | IPNPDOC ---
Subjective Date Seen The patient was seen on 01/13/17. Subjective Chief Complaint/HPI The patient is a 76-year-old female admitted with a reason for visit of Brain Mass. Events since last encounter Feels good today States she at well without n/v - reports that id she puts Ensure on her food, she can keep it down better Constitutional: Reports: Fever (Tmax 100.2), Denies: Chills ENT: Denies: Head Aches Pulmonary: Denies: Dyspnea, Cough Cardiovascular: Denies: Chest Pain, Palpitations, Orthopnea Gastrointestinal: Denies: Nausea, Vomiting, Abdominal Pain, Diarrhea, Constipation Objective Physical Examination General Exam: Positive: Alert (Bright and alert - answers questions appropr. ) , No Acute Distress Chest Exam: Positive: Clear to auscultation, Diminished, Negative: Rales, Rhonchi, Wheezing Heart Exam: Positive: Rate Normal, Irregular Rhythm, Normal S1, Normal S2, Negative: Gallops, Murmurs, Rubs Abdomen Exam: Positive: Normal bowel sounds, Soft, Negative: Tenderness, Hepatospenomegaly, Mass Extremity Exam: Negative: Edema Assessment /Plan Problems (1) Glioblastoma multiforme Status: Chronic Problem Text: 01/13 - Per Dr. Jordan's note yesterday "family waiting for chemo and RT" - Plan needs to be clarified there had been discussion of SECONDARY CONNECTOR ARMATURE shunt placement, but Dr. Jordan's notes do not indicate that he is planning this 01/08: A family visit was held yesterday, at this time family believes that they will be able to provide 24/7 care for her once she is discharged. There has been talk about patient potentially having a SECONDARY CONNECTOR ARMATURE shunt placed early next week. 11/24/16 sp Stent-based frameless stereotactic left posterior temporal-parietal craniotomy with microsurgical resection of large mass, cranioplasty, and marked brain edema and swelling treated with the left lateral ventriculostomy for Left temporal-parietal GBM with brain swelling by Dr. Jordan (2) Leukocytosis Status: Acute Problem Text: 01/13: White blood cell count has increased to 26.x today. Tmax 100.2. Bp soft Recent LP/CSF cultures were negative Triple Lumen removed and catheter cultures pending - I will d/w Dr. Castillo what abx to start empirically for line sepsis. 01/11: WBCs continue to climb, however final culture on CSF from 01/09/17 is negative, she remains afebrile with normal BP/HR, and she does not appear ill; she required some O2 overnight but is saturating well on room air today and lungs are clear on exam. No indication for antibiotics at this time with no clear signs of infection. Continue to monitor. 01/10: White blood cell count stable at 14.9, care was discussed with infectious disease since they have signed off on her case. Since she is asymptomatic and afebrile, they do not believe she needs any further intervention at this time. We will continue to monitor. 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 Echo 12/22 showed a-flutter LA 4 cm Rate controlled on bisoprolol Not candidate for anticoagulation until after neurosurgical procedure (6) Regurgitation of food Problem Text: 01/11: no further regurgitation seen or noted by nursing staff 01/07: Patient having some regurgitation while examining patient, continue to monitor 01/04: Per nursing most of the nausea happens when the patient tells them she is nervous. She has been nauseated today, but was able to keep down lunch and a snack. I have increased her olanzapine to BId, and have recommended that she take smaller bites and eat more slowly. Her family members do admit that she tends to "ibarra down food." chronic PP NBNB vomiting p solids-favor central nausea and gastritis-induced by anorexia, chronic po steroids, abx effect 01/03 changed ondansetron OD 4 AC TID 30 mins prior to meals, continue panto 40 qAM and + Carafate 1 AC TID/QHS, last day of vanco/meropen 01/[address] (7) Hypotension Status: Acute Response to Treatment: Stable Problem Text: 01/11: BPs remain stable 01/07: Blood pressure stable, continue to monitor 01/05: Stable today with pressures around 115-120/70-80. 01/04: Stable, today 103/54 01/03: Stable, continue dexamethasone 01/02: Blood pressure stable at 108/57 today, continue dexamethasone 01/01: Blood pressure 103/62 today, lowest blood pressure over last 24 hours 90/ 50. Patient has been stable for about the last 24 hours. Continue dexamethasone. 12/31/2016: soft BP this am 94/50. 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 01/07: Patient not very conversive on examination today 01/06 - Her mental status waxes and wanes - alert at times and groggy at other times. 01/04: Patient is awake, alert and able to answer questions appropriately. 01/03: Somnolent and easily arousable, verbal and able to answer questions appropriately 01/02: Patient easily arousable today, verbal and able to answer questions appropriately 01/01: Patient initially sleepy but arousable on examination. Verbal and able to answer questions. Her changes in mental status appear to be secondary to her neurological condition. 12/31: Change in responsiveness compared to yesterday. CT head and chest today. Dr. Jordan, notified and will eval patient. (9) Septic shock Status: Resolved Problem Text: 01/06 - BP variable but overall stable on Bisoprolol 01/03: Final day of vancomycin and meropenem 01/01: Continue vancomycin and meropenem until 01/03/17 12/30/2016: see ID note. IV Meropenem and Vancomycin until 01/03/17. 12/29: Patient maintaining blood pressure without levophed. She did have some lower blood pressures around 1:00 this afternoon, she will remain in ICU through tomorrow. If she maintains her blood pressure, does not require restarting of pressors, she may be able to be transferred to PCU tomorrow. If patient does drop her blood pressure, hypotension may be secondary to pituitary dysfunction, consider trial of hydrocortisone 12/28: maintaining bp with 5mcg levophed, CVP 7. Rhythm varies between sinus and afib 12/28: BP down, respiratory difficulties with fluid challenge. Back to ICU with Levophed initiated. New lactic acid ordered stat and for 4 hours. Will check CVP as another indicator of volume status. Code status still Full Code. 12/27: Resolved, patient stable in PCU off of pressors. Continue to monitor for recurrence. 12/25: Patient required initiation of norepinephrine overnight. Blood pressure stable on norepinephrine. A discussion was had with the family regarding her current situation, they were made aware of her recent deterioration. She will remain a full code at this time, family will discuss her further care amongst themselves. 12/24: Developed septic shock today, T-max overnight of 103.4, hypotension with blood pressure as low as 76/42. Patient was given a 30 mL per KG fluid bolus. Patient was transferred to ICU and intensive care was consulted. (10) Meningitis Status: Resolved Response to Treatment: Stable, Improving Discussed With: Nurse, Patient Problem Specific Plan: Consult Specialist, Monitor Clinically, Repeat Labs Problem Text: 01/03: Final day of vancomycin and meropenem 01/01: Continue Vanco and meropenem until 01/03/17 12/30/2016: see ID note. IV Meropenem and Vancomycin until 01/03/17. 12/28 continue vancomycin and meropenem 12/27: As per infectious disease patient will continue on Vanco and meropenem for a treatment duration of 2 weeks 12/25: CSF PCR negative, repeat CSF Gram stain and culture was negative, anaerobic culture negative, blood culture 1 no growth after 24 hours 12/24: Patient had drain of scalp swelling yesterday which was consistent CSF, showing 718 white blood cells, 95% PMNs, glucose of 15, total protein of 82. She is concurrently being managed by infectious disease, she will continue on vancomycin and meropenem. 12/23: Pt with Nosocomial meningitis, she is being followed by ID. She has had LP with pleocytosis and neutrophils, her T protein is elevated. her cultures have been Neg but she had received Rocephin prior to LP being performed. Vanco/ Meropenam dosing per ID. (11) Diastolic congestive heart failure Permanent Comment: 12/22/16: Echocardiogram showed hyperdynamic left ventricular systolic function, LVEF 75%, atrial flutter. Moderate elevation of pulmonary artery systolic pressure. Mild aortic valve sclerosis, mild aortic regurgitation. Negative for mitral regurgitation. Mild left atrial dilation Last Edited By: Alexus Herman PA-C on Dec 23, 2016 10:09 Status: Chronic Problem Text: 12/28: acute decompensation yesterday when attempt to use fluid bolus to support hypotension was made. she developed mild dyspnea, cxr showed vascular engorgement, moved to ICU for levophed to address hypotension. 12/23 appears compensated. 12/21 BNP 1541 c mild decompensation-held IVF and amlo 2.5 BID-repeat TTE (12) Seizure disorder Status: Chronic Problem Text: 12/25: CSF PCR negative, repeat CSF Gram stain and culture was negative, anaerobic culture negative, blood culture 1 no growth after 24 hours 12/22: CSF culture did not show any organisms, CSF PCR still pending 12/21/2016: LP completed a 12/20/2016. Patient has some soreness in the back around puncture site. CSF culture pending. 2 focus 2 brain tumor resection 12/[address] head c stable STS/fluid collection seen on 12/18 CT-case dw Dr. Jordan who agrees favors fluid is 2 to necrotic tissue, but given fever/MS change, agrees c LP (as did Dr. Castillo)-case dw c Dr. Arturo Foster who wanted clearance from [facility] 12/19 Dr. Herrera increased leve to 1000 BID given sz episode-partially 2 UTI/hypoNa /? fluid collection 12/19 EEG This EEG in awake, drowsy states, stage 1 and 2 sleep is abnormal due to presence of left temporal intermittent rhythmic delta activity/temporal intermittent rhythmic delta activity (TIRDA) with separate to left central head region consistent with focal cortical structural or functional abnormality with epileptic potential. No clinical or electrographic seizures were recorded. Clinical correlation is recommended. DD: KERRI HERRERA MD 12/20/16 0658 12/18 CT head The patient is status post resection of a left temporal lobe tumor. There is postoperative change in the posterior left temporal lobe with decreased mass effect compared to the previous study. There is increased soft tissue swelling and fluid overlying the craniotomy site. (13) Anemia Status: Chronic Problem Specific Plan: Monitor Clinically Problem Text: 01/11: Hemoglobin stable at 9.1, continue to monitor 01/08: Hemoglobin stable at 9.8 01/05: Hemoglobin at 9.5 today from 10.6 yesterday. Continue to monitor daily. 01/01: Hemoglobin stable at 9.8 12/29: Hemoglobin stable at 10.8 12/27: Hemoglobin stable at 10.3 12/25: Hemoglobin stable at 10.5 12/23 - No labs ordered, will obtain. Hgb had trended from 10.8 12/21 to 9.7 12/21/2016: Hemoglobin improving today, 10.8. caution on chronic po steroid (on panto 40 QD for px) 12/20 hgb down to 9.4 (10.2, 11.2)-check HO baseline hgb 12s (12/09 wt 69, 12/20 79) On Supplemental B12 and Iron. 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 Patient was set up for biopsy of the nodule to rule out primary lesion. The nodule could not be biopsied by interventional radiology secondary to size. Dr. Morales noted that the lesion was unlikely a primary metastatic lesion. Patient proceeded to have a biopsy of her brain mass which resulted in glioblastoma. Lung nodule will need to be followed as outpatient. 11/24/2016: I reconfirmed this assessment with Dr. 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 (smog technician) 11/19/16: Per Interventional Rad: most likely not a primary. Proceed with brain mass bx and pathology prior to lung nodule eval. 11/17/2016: Pulmonology, informal consult, advised against bronchoscopy. Recommends interventional to see if can get to nodule. Dr. Jordan is requesting that we strongly consider working up this lung nodule while she is in the hospital. He has a strong clinical suspicion that the brain lesion is metastatic. Additionally if she has a primary lung cancer it may change his recommendation to do an excisional bx of the brain lesion which almost assuredly leave her with some weakness and speech deficits. Tomorrow we should contact IR and/or Pulm to see whether CT guided bx or navigational bronchoscopy with bx is the best way to get a sample of this lesion. ------ CT Chest: 14 mm nodule in the anterior segment of the right lower lobe, not present on the comparison study. (17) Brain compression Status: Acute Response to Treatment: Controlled Problem Specific Plan: Monitor Clinically Problem Text: Dr. Jordan, brain edema and swelling treated with the left lateral ventriculostomy on 11/24/16. (18) HTN (hypertension) Status: Chronic Problem Specific Plan: Monitor Clinically Problem Text: BP is well controlled today. Continue current regimen of Bisoprolol (19) CAD (coronary artery disease) Status: Chronic Problem Specific Plan: Monitor Clinically Problem Text: No active symptoms (20) COPD (chronic obstructive pulmonary disease) Status: Chronic Problem Specific Plan: Monitor Clinically Problem Text: Stable Plan/VTE VTE Prophylaxis Ordered?: Yes (TEDs and SCDs) VTE Exclusion Pharmacological: Bleeding Risk (intracranial procedure) Plan Therapy: PT, OT Anticipated Discharge: Home With Services (based on therapy's recommendation) VS, I&O, 24H, Fishbone Vital Signs/I&O Vital Signs Date Time Temp Pulse Resp B/P (MAP) Pulse Ox O2 Delivery O2 Flow Rate FiO2 01/13/17 06:00 97.6 67 16 119/63 (81) 97 Nasal Cannula 2.0 Laboratory Data 24H LABS Laboratory Tests 2 01/13/17 09:59: Anion Gap 9, Glomerular Filtration Rate > 60.0, Blood Urea Nitrogen 33H, Creatinine 0.70, Sodium Level 139, Potassium Level 3.8, Chloride Level 104, Carbon Dioxide Level 26, Calcium Level 10.1, Aspartate Amino Transf (AST/SGOT) 11, Alanine Aminotransferase (ALT/SGPT) 15, Alkaline Phosphatase 77, Total Bilirubin 0.3, Total Protein 5.9L, Albumin 1.9L, Albumin/Globulin Ratio 0.48L 01/13/17 10:09: Immature Granulocyte % (Auto) , Nucleated Red Blood Cells % (auto) 0.0, Neutrophils 91H, Lymphocytes (Manual) 8L, Myelocytes 1H, Platelet Estimate NORMAL, Basophilic Stippling 1+, Anisocytosis 1+ CBC/BMP Laboratory Tests 01/13/17 09:59 Calcium Level 10.1, Aspartate Amino Transf (AST/SGOT) 11, Alanine Aminotransferase (ALT/SGPT) 15, Alkaline Phosphatase 77, Total Bilirubin 0.3, Total Protein 5.9 L, Albumin 1.9 L 01/13/17 10:09 Red Blood Count 3.75 L, Mean Corpuscular Volume 87.2, Mean Corpuscular Hemoglobin 26.7 L, Mean Corpuscular Hemoglobin Concent 30.6 L, Red Cell Distribution Width 15.7 H Microbiology Microbiology 01/12/17 Blood Culture, Received Pending 01/12/17 Blood Culture, Received Pending 01/09/17 Gram Stain - Final, Complete 01/09/17 CSF Culture - Final, Complete 01/12/17 Respiratory Virus Panel (PCR) ([facility]) - Final, Complete 01/12/17 Catheter Tip Culture, Received Pending NEVAEH MORROW PA-C Jan 13, 2017 12:04
[2017-01-13 14:00] VITALS: BP 126/62
[2017-01-13 17:26] LABS: CALCIUM OXALATE CRYSTALS SMALL
--- NOTE | 2017-01-13 19:11 | IPN ---
INFECTIOUS DISEASE PROGRESS NOTE: 01/13/2017 Mrs. Santos has been having diarrhea for the past couple days. On 01/11/2017 she had five documented bowel movements, yesterday four and today about two. They are watery and foul-smelling. The patient has been on MiraLax for the past month. That has not been discontinued in spite of being on laxatives. She denies any abdominal pain, nausea or vomiting. Her appetite is fair. She denies any headache. The concern is her white count has increased over the past 5 days from 8.9 to 26,000. She has had low grade fevers up to a T-max of 100.2 yesterday. Today she is afebrile. Temperature is 97, pulse 89, respirations 21, blood pressure 126/62, O2 sat 93% on 2 liters nasal cannula. Heart: Normal S1, S2 with no murmurs. Lungs are clear. No wheezes, rales or rhonchi. Abdomen is soft, mildly tender in the right and left lower quadrants. No guarding. Extremities: No clubbing, cyanosis or edema. No calf tenderness. Chest wall has the site of an IV catheter. Central line was removed yesterday and sent for culture. LABORATORY DATA: White count is 26.8, hemoglobin 10, hematocrit 32.7, platelets 350, 91% neutrophils, 8% lymphocytes. Sodium 139, potassium 3.8, chloride 104, bicarb 26, BUN 33, creatinine 0.7, glucose 247, calcium 10.1, AST 11, ALT 15, alkaline phosphatase 77, CRP 21.1, which has increased from 2.8 on 01/04/2017, 10 days ago. Blood cultures on 01/12/2017 two sets were drawn were no growth after 24 hours. Catheter tip culture is pending. Respiratory panel is negative. Urinalysis had only 19 white cells, 0 red cells. The patient had a lumbar puncture done on 01/09/2017. It had 38 white cells, down from 718 on 12/23/2016 and 100% monocytes, less than 2 red cells, glucose 50, protein was not sent. Culture, CSF on 01/09/2017 was negative. Chest x-ray done on 01/12/2017 shows chronic appearing changes. Lungs have chronic basilar atelectasis without acute consolidation, effusion or pneumothorax. IMPRESSION 1. Diarrhea with leukocytosis in a patient who has been on laxative for over a month. The patient could have Clostridium (C.) difficile although she has been on laxative; it is much more watery and foul-smelling. Concern is she has some abdominal tenderness and severe leukocytosis. No other source of infection and therefore C. difficile would be a concern. 2. Glioblastoma of the brain, status post biopsy on 11/24/2016. Would obtain a followup MRI of the brain to rule out brain infection. 3. History of nosocomial meningitis with culture positive for P acne. The patient recently finished antibiotic course of vancomycin and meropenem. Antibiotics were discontinued on 01/03/2017 and therefore puts her at very high risk of C difficile. Repeat Lumbar puncture was benign 5 days ago PLAN: Send stool for C. Difficile, discontinue MiraLAX, Dulcolax. If the patient positive for C. Difficile, then would start vancomycin 125 mg by mouth four times a day. Will add probiotics. Obtain MRI of the brain with Gadolinium. Does not seem that the line is the source of infection or pulmonary and therefore I would not start empiric antibiotic unless the patient looks septic. MTDD
[2017-01-13] MEDS: LACTOBACILLUS ACIDOPHILUS CAP (BACID) PO SCH (20:27)
[2017-01-13] MEDS: ROSUVASTATIN 10 MG TAB (CRESTOR) PO SCH (20:28)
[2017-01-13 22:00] VITALS: BP 133/76
[2017-01-14] MEDS: VANCOMYCIN ORAL SOL 250MG/5ML ORAL SYRINGE PO SCH ×4 (00:04→17:40)
[2017-01-14] MEDS: ALBUTEROL SULFATE 2.5 MG/0.5 ML INH NEB SOLN NEB SCH ×4 (01:55→21:00)
[2017-01-14 02:00] VITALS: BP 118/58
[2017-01-14 06:00] VITALS: BP 140/58
[2017-01-14 06:37] LABS: MEAN CORPUSCULAR HEMOGLOBIN 26.3 pg (27.0-33.0); MEAN CORPUSCULAR HGB CONC 31.7 g/dl (32.0-36.5); MEAN CORPUSCULAR VOLUME 83.1 fl (80.0-96.0); PLATELET COUNT, AUTOMATED 423 10^3/uL (150-450); RED CELL DISTRIBUTION WIDTH 15.7 % (11.5-14.5)
[2017-01-14 06:39] LABS: POS COUNT POS FLAG; POSITIVE DIFF POS FLAG; POSITIVE MORPH POS FLAG
[2017-01-14 06:40] LABS: ADD MANUAL DIFFER YES; DIFF SLIDE NUMBER 1
[2017-01-14 06:41] LABS: WHITE BLOOD COUNT 32.2 10^3/uL (4.0-10.0)
[2017-01-14 07:13] LABS: ANION GAP 8 MEQ/L (8-16); BLOOD UREA NITROGEN 33 MG/DL (7-18); CALCIUM LEVEL 10.2 MG/DL (8.8-10.2); CARBON DIOXIDE LEVEL 29 MEQ/L (21-32); CHLORIDE LEVEL 105 MEQ/L (98-107); CREATININE FOR GFR 0.59 MG/DL (0.55-1.02); GLOMERULAR FILTRATION RATE > 60.0 (>39); GLUCOSE, FASTING 136 MG/DL (83-110); POTASSIUM SERUM 3.6 MEQ/L (3.5-5.1); SODIUM LEVEL 142 MEQ/L (136-145)
[2017-01-14] MEDS: BUDESONIDE 0.5 MG/2 ML INHALATION SUSPENSION INH SCH ×2 (07:25→21:00)
[2017-01-14 08:26] LABS: BANDS 3 % (< 11)
[2017-01-14 08:28] LABS: ANISOCYTOSIS 1+
[2017-01-14] MEDS: SUCRALFATE SUSP 1GM/10ML UD PO SCH ×4 (09:06→21:37)
[2017-01-14] MEDS: LACTOBACILLUS ACIDOPHILUS CAP (BACID) PO SCH ×2 (09:07→21:38)
[2017-01-14] MEDS: CYANOCOBALAMIN 500 MCG TAB PO SCH (09:07)
[2017-01-14] MEDS: ONDANSETRON 4 MG ORAL DISINTEGRATING TAB (S0181) PO SCH ×3 (09:07→17:40)
[2017-01-14] MEDS: levETIRAcetam 250MG TABLET (KEPPRA) PO SCH ×2 (09:07→21:38)
[2017-01-14] MEDS: LORATADINE 10 MG TAB PO SCH (09:07)
[2017-01-14] MEDS: CALCIUM/VITAMIN D 500 MG TAB PO SCH ×2 (09:07→21:37)
[2017-01-14] MEDS: OLANZapine 2.5MG TABLET PO SCH ×2 (09:07→21:38)
[2017-01-14] MEDS: NYSTATIN 100,000 UNITS/GM TOPICAL PWD 15 GM TOP SCH ×2 (09:08→21:37)
[2017-01-14] MEDS: PREPARATION H OINTMENT (HEMORRHOID) PR PRN ×2 (09:08→21:37)
--- NOTE | 2017-01-14 13:37 | IPNPDOC ---
Subjective Date Seen The patient was seen on 01/14/17. Subjective Chief Complaint/HPI The patient is a 76-year-old female admitted with a reason for visit of Brain Mass. Events since last encounter Patient's C. difficile PCR came back positive, she was started on vancomycin 250 mg by mouth every 6 hours. She does not have any acute concerns today. Constitutional: Denies: Chills, Fever ENT: Denies: Head Aches Pulmonary: Denies: Dyspnea Cardiovascular: Denies: Chest Pain Gastrointestinal: Denies: Abdominal Pain Objective Physical Examination General Exam: Positive: Alert, No Acute Distress Chest Exam: Positive: Clear to auscultation, Diminished, Negative: Rales, Rhonchi, Wheezing Heart Exam: Positive: Rate Normal, Irregular Rhythm, Normal S1, Normal S2, Negative: Gallops, Murmurs, Rubs Abdomen Exam: Positive: Normal bowel sounds, Soft, Negative: Tenderness, Hepatospenomegaly, Mass Assessment /Plan Problems (1) C. difficile diarrhea Status: Acute Problem Text: 01/14: Patient's PCR for C. difficile positive, she was started on vancomycin 250 mg by mouth every 6 hours overnight. We will back off on dose to vancomycin 125 mg by mouth every 6 hours as recommended by infectious disease (2) Glioblastoma multiforme Status: Chronic Problem Text: 01/14: Plan to discuss patient's care further tomorrow with Dr. Jordan in Dr. Ramírez's 01/13 - Per Dr. Jordan's note yesterday "family waiting for chemo and RT" - Plan needs to be clarified there had been discussion of FIELD CR[employer] TECHNICAL OFFICER shunt placement, but Dr. Jordan's notes do not indicate that he is planning this 01/08: A family visit was held yesterday, at this time family believes that they will be able to provide 24/7 care for her once she is discharged. There has been talk about patient potentially having a FIELD [employer] TECHNICAL OFFICER shunt placed early next week. 11/24/16 sp Stent-based frameless stereotactic left posterior temporal-parietal craniotomy with microsurgical resection of large mass, cranioplasty, and marked brain edema and swelling treated with the left lateral ventriculostomy for Left temporal-parietal GBM with brain swelling by Dr. Jordan (3) Leukocytosis Status: Acute Problem Text: 01/14: What blood cell count has increased to 32.2, started on by mouth vancomycin for C. difficile infection 01/13: White blood cell count has increased to 26.x today. Tmax 100.2. Bp soft Recent LP/CSF cultures were negative Triple Lumen removed and catheter cultures pending - I will d/w Dr. Castillo what abx to start empirically for line sepsis. 01/11: WBCs continue to climb, however final culture on CSF from 01/09/17 is negative, she remains afebrile with normal BP/HR, and she does not appear ill; she required some O2 overnight but is saturating well on room air today and lungs are clear on exam. No indication for antibiotics at this time with no clear signs of infection. Continue to monitor. 01/10: White blood cell count stable at 14.9, care was discussed with infectious disease since they have signed off on her case. Since she is asymptomatic and afebrile, they do not believe she needs any further intervention at this time. We will continue to monitor. 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 Echo 12/22 showed a-flutter LA 4 cm Rate controlled on bisoprolol Not candidate for anticoagulation until after neurosurgical procedure (7) Regurgitation of food Problem Text: 01/11: no further regurgitation seen or noted by nursing staff 01/07: Patient having some regurgitation while examining patient, continue to monitor 01/04: Per nursing most of the nausea happens when the patient tells them she is nervous. She has been nauseated today, but was able to keep down lunch and a snack. I have increased her olanzapine to BId, and have recommended that she take smaller bites and eat more slowly. Her family members do admit that she tends to "ibarra down food." chronic PP NBNB vomiting p solids-favor central nausea and gastritis-induced by anorexia, chronic po steroids, abx effect 01/03 changed ondansetron OD 4 AC TID 30 mins prior to meals, continue panto 40 qAM and + Carafate 1 AC TID/QHS, last day of vanco/meropen 01/[address] (8) Hypotension Status: Acute Response to Treatment: Stable Problem Text: 01/11: BPs remain stable 01/07: Blood pressure stable, continue to monitor 01/05: Stable today with pressures around 115-120/70-80. 01/04: Stable, today 103/54 01/03: Stable, continue dexamethasone 01/02: Blood pressure stable at 108/57 today, continue dexamethasone 01/01: Blood pressure 103/62 today, lowest blood pressure over last 24 hours 90/ 50. Patient has been stable for about the last 24 hours. Continue dexamethasone. 12/31/2016: soft BP this am 94/50. 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 01/07: Patient not very conversive on examination today 01/06 - Her mental status waxes and wanes - alert at times and groggy at other times. 01/04: Patient is awake, alert and able to answer questions appropriately. 01/03: Somnolent and easily arousable, verbal and able to answer questions appropriately 01/02: Patient easily arousable today, verbal and able to answer questions appropriately 01/01: Patient initially sleepy but arousable on examination. Verbal and able to answer questions. Her changes in mental status appear to be secondary to her neurological condition. 12/31: Change in responsiveness compared to yesterday. CT head and chest today. Dr. Jordan, notified and will eval patient. (10) Septic shock Status: Resolved Problem Text: 01/06 - BP variable but overall stable on Bisoprolol 01/03: Final day of vancomycin and meropenem 01/01: Continue vancomycin and meropenem until 01/03/17 12/30/2016: see ID note. IV Meropenem and Vancomycin until 01/03/17. 12/29: Patient maintaining blood pressure without levophed. She did have some lower blood pressures around 1:00 this afternoon, she will remain in ICU through tomorrow. If she maintains her blood pressure, does not require restarting of pressors, she may be able to be transferred to PCU tomorrow. If patient does drop her blood pressure, hypotension may be secondary to pituitary dysfunction, consider trial of hydrocortisone 12/28: maintaining bp with 5mcg levophed, CVP 7. Rhythm varies between sinus and afib 12/28: BP down, respiratory difficulties with fluid challenge. Back to ICU with Levophed initiated. New lactic acid ordered stat and for 4 hours. Will check CVP as another indicator of volume status. Code status still Full Code. 12/27: Resolved, patient stable in PCU off of pressors. Continue to monitor for recurrence. 12/25: Patient required initiation of norepinephrine overnight. Blood pressure stable on norepinephrine. A discussion was had with the family regarding her current situation, they were made aware of her recent deterioration. She will remain a full code at this time, family will discuss her further care amongst themselves. 12/24: Developed septic shock today, T-max overnight of 103.4, hypotension with blood pressure as low as 76/42. Patient was given a 30 mL per KG fluid bolus. Patient was transferred to ICU and intensive care was consulted. (11) Meningitis Status: Resolved Response to Treatment: Stable, Improving Discussed With: Nurse, Patient Problem Specific Plan: Consult Specialist, Monitor Clinically, Repeat Labs Problem Text: 01/03: Final day of vancomycin and meropenem 01/01: Continue Vanco and meropenem until 01/03/17 12/30/2016: see ID note. IV Meropenem and Vancomycin until 01/03/17. 12/28 continue vancomycin and meropenem 12/27: As per infectious disease patient will continue on Vanco and meropenem for a treatment duration of 2 weeks 12/25: CSF PCR negative, repeat CSF Gram stain and culture was negative, anaerobic culture negative, blood culture 1 no growth after 24 hours 12/24: Patient had drain of scalp swelling yesterday which was consistent CSF, showing 718 white blood cells, 95% PMNs, glucose of 15, total protein of 82. She is concurrently being managed by infectious disease, she will continue on vancomycin and meropenem. 12/23: Pt with Nosocomial meningitis, she is being followed by ID. She has had LP with pleocytosis and neutrophils, her T protein is elevated. her cultures have been Neg but she had received Rocephin prior to LP being performed. Vanco/ Meropenam dosing per ID. (12) Diastolic congestive heart failure Permanent Comment: 12/22/16: Echocardiogram showed hyperdynamic left ventricular systolic function, LVEF 75%, atrial flutter. Moderate elevation of pulmonary artery systolic pressure. Mild aortic valve sclerosis, mild aortic regurgitation. Negative for mitral regurgitation. Mild left atrial dilation Last Edited By: Alexus Herman PA-C on Dec 23, 2016 10:09 Status: Chronic Problem Text: 12/28: acute decompensation yesterday when attempt to use fluid bolus to support hypotension was made. she developed mild dyspnea, cxr showed vascular engorgement, moved to ICU for levophed to address hypotension. 12/23 appears compensated. 12/21 BNP 1541 c mild decompensation-held IVF and amlo 2.5 BID-repeat TTE (13) Seizure disorder Status: Chronic Problem Text: 12/25: CSF PCR negative, repeat CSF Gram stain and culture was negative, anaerobic culture negative, blood culture 1 no growth after 24 hours 12/22: CSF culture did not show any organisms, CSF PCR still pending 12/21/2016: LP completed a 12/20/2016. Patient has some soreness in the back around puncture site. CSF culture pending. 2 focus 2 brain tumor resection 12/[address] head c stable STS/fluid collection seen on 12/18 CT-case dw Dr. Jordan who agrees favors fluid is 2 to necrotic tissue, but given fever/MS change, agrees c LP (as did Dr. Castillo)-case dw c Dr. Arturo Foster who wanted clearance from [facility] 12/19 Dr. Herrera increased leve to 1000 BID given sz episode-partially 2 UTI/hypoNa /? fluid collection 12/19 EEG This EEG in awake, drowsy states, stage 1 and 2 sleep is abnormal due to presence of left temporal intermittent rhythmic delta activity/temporal intermittent rhythmic delta activity (TIRDA) with separate to left central head region consistent with focal cortical structural or functional abnormality with epileptic potential. No clinical or electrographic seizures were recorded. Clinical correlation is recommended. DD: KERRI HERRERA MD 12/20/16 0658 12/18 CT head The patient is status post resection of a left temporal lobe tumor. There is postoperative change in the posterior left temporal lobe with decreased mass effect compared to the previous study. There is increased soft tissue swelling and fluid overlying the craniotomy site. (14) Anemia Status: Chronic Problem Specific Plan: Monitor Clinically Problem Text: 01/11: Hemoglobin stable at 9.1, continue to monitor 01/08: Hemoglobin stable at 9.8 01/05: Hemoglobin at 9.5 today from 10.6 yesterday. Continue to monitor daily. 01/01: Hemoglobin stable at 9.8 12/29: Hemoglobin stable at 10.8 12/27: Hemoglobin stable at 10.3 12/25: Hemoglobin stable at 10.5 12/23 - No labs ordered, will obtain. Hgb had trended from 10.8 12/21 to 9.7 12/21/2016: Hemoglobin improving today, 10.8. caution on chronic po steroid (on panto 40 QD for px) 12/20 hgb down to 9.4 (10.2, 11.2)-check HO baseline hgb 12s (12/09 wt 69, 12/20 79) On Supplemental B12 and Iron. 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 Patient was set up for biopsy of the nodule to rule out primary lesion. The nodule could not be biopsied by interventional radiology secondary to size. Dr. Morales noted that the lesion was unlikely a primary metastatic lesion. Patient proceeded to have a biopsy of her brain mass which resulted in glioblastoma. Lung nodule will need to be followed as outpatient. 11/24/2016: I reconfirmed this assessment with Dr. 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 (generalist) 11/19/16: Per Interventional Rad: most likely not a primary. Proceed with brain mass bx and pathology prior to lung nodule eval. 11/17/2016: Pulmonology, informal consult, advised against bronchoscopy. Recommends interventional to see if can get to nodule. Dr. Jordan is requesting that we strongly consider working up this lung nodule while she is in the hospital. He has a strong clinical suspicion that the brain lesion is metastatic. Additionally if she has a primary lung cancer it may change his recommendation to do an excisional bx of the brain lesion which almost assuredly leave her with some weakness and speech deficits. Tomorrow we should contact IR and/or Pulm to see whether CT guided bx or navigational bronchoscopy with bx is the best way to get a sample of this lesion. ------ CT Chest: 14 mm nodule in the anterior segment of the right lower lobe, not present on the comparison study. (18) Brain compression Status: Acute Response to Treatment: Controlled Problem Specific Plan: Monitor Clinically Problem Text: Dr. Jordan, brain edema and swelling treated with the left lateral ventriculostomy on 11/24/16. (19) HTN (hypertension) Status: Chronic Problem Specific Plan: Monitor Clinically Problem Text: BP is well controlled today. Continue current regimen of Bisoprolol (20) CAD (coronary artery disease) Status: Chronic Problem Specific Plan: Monitor Clinically Problem Text: No active symptoms (21) COPD (chronic obstructive pulmonary disease) Status: Chronic Problem Specific Plan: Monitor Clinically Problem Text: Stable Plan/VTE VTE Prophylaxis Ordered?: Yes (TEDs and SCDs) VTE Exclusion Pharmacological: Bleeding Risk (intracranial procedure) Plan Therapy: PT, OT Anticipated Discharge: Home With Services (based on therapy's recommendation) VS, I&O, 24H, Fishbone Vital Signs/I&O Vital Signs Date Time Temp Pulse Resp B/P (MAP) Pulse Ox O2 Delivery O2 Flow Rate FiO2 01/14/17 09:10 Nasal Cannula 2.0 01/14/17 06:00 98.0 75 20 140/58 (85) 97 I&O- Last 24 Hours up to 6 AM 01/15/17 06:00 Intake Total 240 ml Balance 240 ml Laboratory Data 24H LABS Laboratory Tests 2 01/13/17 16:45: Urine Appearance HAZY, Urine Color YELLOW, Urine pH 5.0, Urine Specific Clyde 1.024, Urine Protein 1+H, Urine Glucose (UA) 1+H, Urine Ketones NEGATIVE, Urine Urobilinogen 2.0H, Urine Bilirubin NEGATIVE, Urine Leukocyte Esterase 3+H, Urine Blood NEGATIVE, Urine Nitrite NEGATIVE, Urine WBC (Auto) 19H, Urine RBC ( Auto) 0, Urine Hyaline Casts (Auto) 0, Urine Bacteria (Auto) 1+H, Urine Squamous Epithelial Cells 2, Urine Calcium Oxalate Cryst (Auto) SMALL, Urine Amorphous Sediment SMALLH, Urine Mucus (Auto) SMALL, Urine Sperm (Auto) 01/14/17 05:50: Immature Granulocyte % (Auto) , White Blood Count 32.2*H, Red Blood Count 3.91L , Hemoglobin 10.3L, Hematocrit 32.5L, Mean Corpuscular Volume 83.1, Mean Corpuscular Hemoglobin 26.3L, Mean Corpuscular Hemoglobin Concent 31.7L, Red Cell Distribution Width 15.7H, Platelet Count 423, Monocytes # (Auto) , Nucleated Red Blood Cells % (auto) 0.1H, Neutrophils 85H, Band Neutrophils 3, Lymphocytes (Manual) 6L, Monocytes (Manual) 5, Atypical Lymphocytes 1, Platelet Estimate NORMAL, Basophilic Stippling 1+, Anisocytosis 1+, Anion Gap 8, Glomerular Filtration Rate > 60.0, Blood Urea Nitrogen 33H, Creatinine 0.59, Sodium Level 142, Potassium Level 3.6, Chloride Level 105, Carbon Dioxide Level 29, Calcium Level 10.2 CBC/BMP Laboratory Tests 01/14/17 05:50 Red Blood Count 3.91 L, Mean Corpuscular Volume 83.1, Mean Corpuscular Hemoglobin 26.3 L, Mean Corpuscular Hemoglobin Concent 31.7 L, Red Cell Distribution Width 15.7 H, Monocytes # (Auto) , Calcium Level 10.2 Microbiology Microbiology 01/12/17 Blood Culture - Preliminary, Resulted No growth after 24 hours . All specim... 01/12/17 Blood Culture - Preliminary, Resulted No growth after 24 hours . All specim... 01/09/17 Gram Stain - Final, Complete 01/09/17 CSF Culture - Final, Complete 01/13/17 Clostridium difficile (PCR) - Final, Complete 01/12/17 Respiratory Virus Panel (PCR) ([facility]) - Final, Complete 01/12/17 Catheter Tip Culture - Final, Complete GME ATTESTATION GME ATTESTATION My faculty preceptor for this patient encounter was physically present during the encounter and was fully available. All aspects of the patient interview, examination, medical decision making process, and medical care plan development were reviewed and approved by the faculty preceptor. The faculty preceptor is aware and concurs with the plan as stated in the body of this note and will attest to such by his/her cosignature. EMMA DUFFY DO Jan 14, 2017 13:37
[2017-01-14 14:00] VITALS: BP 138/86
[2017-01-14] MEDS ORDERED: PROHANCE 279.3MG/ML 15ML VIAL (A9576) As Ordered ONE (20:26)
[2017-01-14] MEDS: ROSUVASTATIN 10 MG TAB (CRESTOR) PO SCH (21:38)
[2017-01-14] MEDS: ACETAMINOPHEN 500 MG TAB PO PRN (21:39)
[2017-01-14 22:00] VITALS: BP 91/57
[2017-01-15] MEDS: VANCOMYCIN ORAL SOL 250MG/5ML ORAL SYRINGE PO SCH ×5 (00:20→23:19)
[2017-01-15] MEDS: ALBUTEROL SULFATE 2.5 MG/0.5 ML INH NEB SOLN NEB SCH ×4 (02:00→21:28)
[2017-01-15 05:47] VITALS: BP 101/62
[2017-01-15] MEDS: ACETAMINOPHEN 500 MG TAB PO PRN ×2 (05:51→12:14)
[2017-01-15 07:31] LABS: MEAN CORPUSCULAR HEMOGLOBIN 26.4 pg (27.0-33.0); MEAN CORPUSCULAR HGB CONC 31.8 g/dl (32.0-36.5); MEAN CORPUSCULAR VOLUME 83.1 fl (80.0-96.0); PLATELET COUNT, AUTOMATED 443 10^3/uL (150-450); RED CELL DISTRIBUTION WIDTH 15.4 % (11.5-14.5)
[2017-01-15 07:42] LABS: ADD MANUAL DIFFER YES; DIFF SLIDE NUMBER 1; POS COUNT POS FLAG; POSITIVE DIFF POS FLAG; WHITE BLOOD COUNT 46.9 10^3/uL (4.0-10.0)
[2017-01-15 07:53] LABS: ANION GAP 9 MEQ/L (8-16); BLOOD UREA NITROGEN 40 MG/DL (7-18); CALCIUM LEVEL 9.9 MG/DL (8.8-10.2); CARBON DIOXIDE LEVEL 25 MEQ/L (21-32); CHLORIDE LEVEL 106 MEQ/L (98-107); CREATININE FOR GFR 0.77 MG/DL (0.55-1.02); GLOMERULAR FILTRATION RATE > 60.0 (>39); GLUCOSE, FASTING 125 MG/DL (83-110); POTASSIUM SERUM 3.6 MEQ/L (3.5-5.1); SODIUM LEVEL 140 MEQ/L (136-145)
[2017-01-15] MEDS: BUDESONIDE 0.5 MG/2 ML INHALATION SUSPENSION INH SCH ×2 (08:00→21:27)
[2017-01-15] MEDS: OLANZapine 2.5MG TABLET PO SCH ×2 (08:07→21:07)
[2017-01-15] MEDS: levETIRAcetam 250MG TABLET (KEPPRA) PO SCH ×2 (08:07→21:06)
[2017-01-15] MEDS: CYANOCOBALAMIN 500 MCG TAB PO SCH (08:07)
[2017-01-15] MEDS: LACTOBACILLUS ACIDOPHILUS CAP (BACID) PO SCH ×2 (08:07→21:06)
[2017-01-15] MEDS: SUCRALFATE SUSP 1GM/10ML UD PO SCH ×4 (08:07→21:06)
[2017-01-15] MEDS: LORATADINE 10 MG TAB PO SCH (08:08)
[2017-01-15] MEDS: NYSTATIN 100,000 UNITS/GM TOPICAL PWD 15 GM TOP SCH ×2 (08:08→21:07)
[2017-01-15] MEDS: CALCIUM/VITAMIN D 500 MG TAB PO SCH ×2 (08:08→21:06)
[2017-01-15] MEDS: ONDANSETRON 4 MG ORAL DISINTEGRATING TAB (S0181) PO SCH ×3 (08:08→17:19)
[2017-01-15] MEDS: PREPARATION H OINTMENT (HEMORRHOID) PR PRN (08:09)
[2017-01-15 08:33] LABS: BANDS 4 % (< 11)
[2017-01-15 08:40] LABS: ANISOCYTOSIS 1+
--- NOTE | 2017-01-15 09:01 | REP ---
MR BRAIN WITHOUT AND WITH CONTRAST: HISTORY: Leukocytosis. CONTRAST: ProHance 14 mL. COMPARISON: 12/26/2016 The patient is status post left temporoparietal craniotomy resection of a left temporal lobe tumor. Mixed signal intensity is present in the posterior left temporal lobe. This represents subacute and chronic hemorrhage and gliosis. A component with moderate irregular ring-like enhancement is present. This measures 2.8 cm in transverse by 4.3 cm in AP by 2.6 cm in cephalocaudal dimensions and is unchanged compared to the previous study. There is mass effect with partial effacement of the overlying cortical sulci and partial effacement of the atrium and temporal horn of the left lateral ventricle. The mass effect is unchanged. Surrounding vasogenic edema is present that is increased compared to the previous study. There is no midline shift. An area of increased signal intensity on T2-weighted images is present in the medial left frontal and parietal lobes. There is mass effect with effacement of the overlying cortical sulci. There is no enhancement with contrast. Areas of increased signal intensity on T2-weighted images are present in the periventricular and subcortical white matter. This represents small vessel ischemic disease. The ventricular system and cortical sulci are dilated consistent with moderate volume loss. There is no extracerebral collection. A retention cyst is present in the left maxillary sinus. IMPRESSION: 1. The patient is status post resection of a left temporal lobe tumor. There is enhancement of the operative site that is unchanged compared to the previous study. There is persistent mass effect and increased vasogenic edema. These findings are suspicious for residual tumor. A repeat examination is recommended for further evaluation. 2. There is an area of increased signal intensity in the medial left frontal and parietal lobes with mass effect consistent with a tumor. 3. Small vessel ischemic disease. 4. Moderate volume loss. Signed by Elias Ruelas MD 01/15/2017 11:15 A
[2017-01-15 14:00] VITALS: BP 110/62
--- NOTE | 2017-01-15 16:01 | IPNPDOC ---
Subjective Date Seen The patient was seen on 01/15/17. Subjective Chief Complaint/HPI The patient is a 76-year-old female admitted with a reason for visit of Brain Mass. Events since last encounter Patient is continuing to complain of abdominal pain. She does not have any other concerns today. Constitutional: Reports: Fever, Denies: Chills Pulmonary: Denies: Dyspnea Cardiovascular: Denies: Chest Pain Gastrointestinal: Reports: Abdominal Pain Objective Physical Examination General Exam: Positive: Alert, No Acute Distress Chest Exam: Positive: Clear to auscultation, Diminished, Negative: Rales, Rhonchi, Wheezing Heart Exam: Positive: Rate Normal, Irregular Rhythm, Normal S1, Normal S2, Negative: Gallops, Murmurs, Rubs Abdomen Exam: Positive: Normal bowel sounds, Soft, Tenderness (diffuse), Negative: Hepatospenomegaly, Mass Assessment /Plan Problems (1) C. difficile diarrhea Status: Acute Problem Text: 01/15: White blood cell count has increased today, likely secondary to C. difficile infection, continue current treatment 01/14: Patient's PCR for C. difficile positive, she was started on vancomycin 250 mg by mouth every 6 hours overnight. We will back off on dose to vancomycin 125 mg by mouth every 6 hours as recommended by infectious disease (2) Glioblastoma multiforme Status: Chronic Problem Text: 01/15: I spoke with Dr. Ramírez's on the phone today, she stated that she would be able to call the patient's family to give them an update on her status. She was provided with contact information for patient's daughter who is her healthcare proxy. I attempted to call Dr. Jordan's office but was unable to speak with him today. 01/14: Plan to discuss patient's care further tomorrow with Dr. Jordan in Dr. Ramírez's 01/13 - Per Dr. Jordan's note yesterday "family waiting for chemo and RT" - Plan needs to be clarified there had been discussion of [employer] shunt placement, but Dr. Jordan's notes do not indicate that he is planning this 01/08: A family visit was held yesterday, at this time family believes that they will be able to provide 24/7 care for her once she is discharged. There has been talk about patient potentially having a [employer] shunt placed early next week. 11/24/16 sp Stent-based frameless stereotactic left posterior temporal-parietal craniotomy with microsurgical resection of large mass, cranioplasty, and marked brain edema and swelling treated with the left lateral ventriculostomy for Left temporal-parietal GBM with brain swelling by Dr. Jordan (3) Leukocytosis Status: Acute Problem Text: 01/15: White blood cell count increased to 46.9 today, patient does not have any other concerns, triple lumen catheter tip culture was negative. Increase in white count likely secondary to C. difficile infection 01/14: What blood cell count has increased to 32.2, started on by mouth vancomycin for C. difficile infection 01/13: White blood cell count has increased to 26.x today. Tmax 100.2. Bp soft Recent LP/CSF cultures were negative Triple Lumen removed and catheter cultures pending - I will d/w Dr. Castillo what abx to start empirically for line sepsis. 01/11: WBCs continue to climb, however final culture on CSF from 01/09/17 is negative, she remains afebrile with normal BP/HR, and she does not appear ill; she required some O2 overnight but is saturating well on room air today and lungs are clear on exam. No indication for antibiotics at this time with no clear signs of infection. Continue to monitor. 01/10: White blood cell count stable at 14.9, care was discussed with infectious disease since they have signed off on her case. Since she is asymptomatic and afebrile, they do not believe she needs any further intervention at this time. We will continue to monitor. 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 Echo 12/22 showed a-flutter LA 4 cm Rate controlled on bisoprolol Not candidate for anticoagulation until after neurosurgical procedure (7) Regurgitation of food Problem Text: 01/11: no further regurgitation seen or noted by nursing staff 01/07: Patient having some regurgitation while examining patient, continue to monitor 01/04: Per nursing most of the nausea happens when the patient tells them she is nervous. She has been nauseated today, but was able to keep down lunch and a snack. I have increased her olanzapine to BId, and have recommended that she take smaller bites and eat more slowly. Her family members do admit that she tends to "ibarra down food." chronic PP NBNB vomiting p solids-favor central nausea and gastritis-induced by anorexia, chronic po steroids, abx effect 01/03 changed ondansetron OD 4 AC TID 30 mins prior to meals, continue panto 40 qAM and + Carafate 1 AC TID/QHS, last day of vanco/meropen 01/[address] (8) Hypotension Status: Acute Response to Treatment: Stable Problem Text: 01/15: Blood pressures remain stable 01/11: BPs remain stable 01/07: Blood pressure stable, continue to monitor 01/05: Stable today with pressures around 115-120/70-80. 01/04: Stable, today 103/54 01/03: Stable, continue dexamethasone 01/02: Blood pressure stable at 108/57 today, continue dexamethasone 01/01: Blood pressure 103/62 today, lowest blood pressure over last 24 hours 90/ 50. Patient has been stable for about the last 24 hours. Continue dexamethasone. 12/31/2016: soft BP this am 94/50. 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 01/07: Patient not very conversive on examination today 01/06 - Her mental status waxes and wanes - alert at times and groggy at other times. 01/04: Patient is awake, alert and able to answer questions appropriately. 01/03: Somnolent and easily arousable, verbal and able to answer questions appropriately 01/02: Patient easily arousable today, verbal and able to answer questions appropriately 01/01: Patient initially sleepy but arousable on examination. Verbal and able to answer questions. Her changes in mental status appear to be secondary to her neurological condition. 12/31: Change in responsiveness compared to yesterday. CT head and chest today. Dr. Jordan, notified and will eval patient. (10) Septic shock Status: Resolved Problem Text: 01/06 - BP variable but overall stable on Bisoprolol 01/03: Final day of vancomycin and meropenem 01/01: Continue vancomycin and meropenem until 01/03/17 12/30/2016: see ID note. IV Meropenem and Vancomycin until 01/03/17. 12/29: Patient maintaining blood pressure without levophed. She did have some lower blood pressures around 1:00 this afternoon, she will remain in ICU through tomorrow. If she maintains her blood pressure, does not require restarting of pressors, she may be able to be transferred to PCU tomorrow. If patient does drop her blood pressure, hypotension may be secondary to pituitary dysfunction, consider trial of hydrocortisone 12/28: maintaining bp with 5mcg levophed, CVP 7. Rhythm varies between sinus and afib 12/28: BP down, respiratory difficulties with fluid challenge. Back to ICU with Levophed initiated. New lactic acid ordered stat and for 4 hours. Will check CVP as another indicator of volume status. Code status still Full Code. 12/27: Resolved, patient stable in PCU off of pressors. Continue to monitor for recurrence. 12/25: Patient required initiation of norepinephrine overnight. Blood pressure stable on norepinephrine. A discussion was had with the family regarding her current situation, they were made aware of her recent deterioration. She will remain a full code at this time, family will discuss her further care amongst themselves. 12/24: Developed septic shock today, T-max overnight of 103.4, hypotension with blood pressure as low as 76/42. Patient was given a 30 mL per KG fluid bolus. Patient was transferred to ICU and intensive care was consulted. (11) Meningitis Status: Resolved Response to Treatment: Stable, Improving Discussed With: Nurse, Patient Problem Specific Plan: Consult Specialist, Monitor Clinically, Repeat Labs Problem Text: 01/03: Final day of vancomycin and meropenem 01/01: Continue Vanco and meropenem until 01/03/17 12/30/2016: see ID note. IV Meropenem and Vancomycin until 01/03/17. 12/28 continue vancomycin and meropenem 12/27: As per infectious disease patient will continue on Vanco and meropenem for a treatment duration of 2 weeks 12/25: CSF PCR negative, repeat CSF Gram stain and culture was negative, anaerobic culture negative, blood culture 1 no growth after 24 hours 12/24: Patient had drain of scalp swelling yesterday which was consistent CSF, showing 718 white blood cells, 95% PMNs, glucose of 15, total protein of 82. She is concurrently being managed by infectious disease, she will continue on vancomycin and meropenem. 12/23: Pt with Nosocomial meningitis, she is being followed by ID. She has had LP with pleocytosis and neutrophils, her T protein is elevated. her cultures have been Neg but she had received Rocephin prior to LP being performed. Vanco/ Meropenam dosing per ID. (12) Diastolic congestive heart failure Permanent Comment: 12/22/16: Echocardiogram showed hyperdynamic left ventricular systolic function, LVEF 75%, atrial flutter. Moderate elevation of pulmonary artery systolic pressure. Mild aortic valve sclerosis, mild aortic regurgitation. Negative for mitral regurgitation. Mild left atrial dilation Last Edited By: Alexus Herman PA-C on Dec 23, 2016 10:09 Status: Chronic Problem Text: 12/28: acute decompensation yesterday when attempt to use fluid bolus to support hypotension was made. she developed mild dyspnea, cxr showed vascular engorgement, moved to ICU for levophed to address hypotension. 12/23 appears compensated. 12/21 BNP 1541 c mild decompensation-held IVF and amlo 2.5 BID-repeat TTE (13) Seizure disorder Status: Chronic Problem Text: 12/25: CSF PCR negative, repeat CSF Gram stain and culture was negative, anaerobic culture negative, blood culture 1 no growth after 24 hours 12/22: CSF culture did not show any organisms, CSF PCR still pending 12/21/2016: LP completed a 12/20/2016. Patient has some soreness in the back around puncture site. CSF culture pending. 2 focus 2 brain tumor resection 12/[address] head c stable STS/fluid collection seen on 12/18 CT-case dw Dr. Jordan who agrees favors fluid is 2 to necrotic tissue, but given fever/MS change, agrees c LP (as did Dr. Castillo)-case dw c Dr. Arturo Foster who wanted clearance from [facility] 12/19 Dr. Herrera increased leve to 1000 BID given sz episode-partially 2 UTI/hypoNa /? fluid collection 12/19 EEG This EEG in awake, drowsy states, stage 1 and 2 sleep is abnormal due to presence of left temporal intermittent rhythmic delta activity/temporal intermittent rhythmic delta activity (TIRDA) with separate to left central head region consistent with focal cortical structural or functional abnormality with epileptic potential. No clinical or electrographic seizures were recorded. Clinical correlation is recommended. DD: KERRI HERRERA MD 12/20/16 0658 12/18 CT head The patient is status post resection of a left temporal lobe tumor. There is postoperative change in the posterior left temporal lobe with decreased mass effect compared to the previous study. There is increased soft tissue swelling and fluid overlying the craniotomy site. (14) Anemia Status: Chronic Problem Specific Plan: Monitor Clinically Problem Text: 01/15: Hemoglobin has risen to 11.1, continue to monitor 01/11: Hemoglobin stable at 9.1, continue to monitor 01/08: Hemoglobin stable at 9.8 01/05: Hemoglobin at 9.5 today from 10.6 yesterday. Continue to monitor daily. 01/01: Hemoglobin stable at 9.8 12/29: Hemoglobin stable at 10.8 12/27: Hemoglobin stable at 10.3 12/25: Hemoglobin stable at 10.5 12/23 - No labs ordered, will obtain. Hgb had trended from 10.8 12/21 to 9.7 12/21/2016: Hemoglobin improving today, 10.8. caution on chronic po steroid (on panto 40 QD for px) 12/20 hgb down to 9.4 (10.2, 11.2)-check HO baseline hgb 12s (12/09 wt 69, 12/20 79) On Supplemental B12 and Iron. 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 Patient was set up for biopsy of the nodule to rule out primary lesion. The nodule could not be biopsied by interventional radiology secondary to size. Dr. Morales noted that the lesion was unlikely a primary metastatic lesion. Patient proceeded to have a biopsy of her brain mass which resulted in glioblastoma. Lung nodule will need to be followed as outpatient. 11/24/2016: I reconfirmed this assessment with Dr. 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 (clerk supervisor) 11/19/16: Per Interventional Rad: most likely not a primary. Proceed with brain mass bx and pathology prior to lung nodule eval. 11/17/2016: Pulmonology, informal consult, advised against bronchoscopy. Recommends interventional to see if can get to nodule. Dr. Jordan is requesting that we strongly consider working up this lung nodule while she is in the hospital. He has a strong clinical suspicion that the brain lesion is metastatic. Additionally if she has a primary lung cancer it may change his recommendation to do an excisional bx of the brain lesion which almost assuredly leave her with some weakness and speech deficits. Tomorrow we should contact IR and/or Pulm to see whether CT guided bx or navigational bronchoscopy with bx is the best way to get a sample of this lesion. ------ CT Chest: 14 mm nodule in the anterior segment of the right lower lobe, not present on the comparison study. (18) Brain compression Status: Acute Response to Treatment: Controlled Problem Specific Plan: Monitor Clinically Problem Text: Dr. Jordan, brain edema and swelling treated with the left lateral ventriculostomy on 11/24/16. (19) HTN (hypertension) Status: Chronic Problem Specific Plan: Monitor Clinically Problem Text: BP is well controlled today. Continue current regimen of Bisoprolol (20) CAD (coronary artery disease) Status: Chronic Problem Specific Plan: Monitor Clinically Problem Text: No active symptoms (21) COPD (chronic obstructive pulmonary disease) Status: Chronic Problem Specific Plan: Monitor Clinically Problem Text: Stable Plan/VTE VTE Prophylaxis Ordered?: Yes (TEDs and SCDs) VTE Exclusion Pharmacological: Bleeding Risk (intracranial procedure) Plan Therapy: PT, OT Anticipated Discharge: Home With Services (based on therapy's recommendation) VS, I&O, 24H, Fishbone Vital Signs/I&O Vital Signs Date Time Temp Pulse Resp B/P (MAP) Pulse Ox O2 Delivery O2 Flow Rate FiO2 01/15/17 08:15 Nasal Cannula 2.0 01/15/17 05:47 98.0 100 18 101/62 (75) 95 I&O- Last 24 Hours up to 6 AM 01/16/17 06:00 Intake Total 780 ml Balance 780 ml Laboratory Data 24H LABS Laboratory Tests 2 01/15/17 06:35: White Blood Count 46.9*H, Red Blood Count 4.20, Hemoglobin 11.1L, Hematocrit 34.9L, Mean Corpuscular Volume 83.1, Mean Corpuscular Hemoglobin 26.4L, Mean Corpuscular Hemoglobin Concent 31.8L, Red Cell Distribution Width 15.4H, Platelet Count 443, Neutrophils # (Auto) , Monocytes # (Auto) , Nucleated Red Blood Cells % (auto) 0.1H, Neutrophils 80H, Band Neutrophils 4, Lymphocytes ( Manual) 14L, Monocytes (Manual) 2, Platelet Estimate NORMAL, Anisocytosis 1+, Anion Gap 9, Glomerular Filtration Rate > 60.0, Blood Urea Nitrogen 40H, Creatinine 0.77, Sodium Level 140, Potassium Level 3.6, Chloride Level 106, Carbon Dioxide Level 25, Calcium Level 9.9 CBC/BMP Laboratory Tests 01/15/17 06:35 Red Blood Count 4.20, Mean Corpuscular Volume 83.1, Mean Corpuscular Hemoglobin 26.4 L, Mean Corpuscular Hemoglobin Concent 31.8 L, Red Cell Distribution Width 15.4 H, Neutrophils # (Auto) , Monocytes # (Auto) , Calcium Level 9.9 Microbiology Microbiology 01/12/17 Blood Culture - Preliminary, Resulted No Growth after 72 hours. All specime... 01/12/17 Blood Culture - Preliminary, Resulted No Growth after 72 hours. All specime... 01/09/17 Gram Stain - Final, Complete 01/09/17 CSF Culture - Final, Complete 01/13/17 Clostridium difficile (PCR) - Final, Complete 01/12/17 Respiratory Virus Panel (PCR) ([facility]) - Final, Complete 01/12/17 Catheter Tip Culture - Final, Complete GME ATTESTATION GME ATTESTATION My faculty preceptor for this patient encounter was physically present during the encounter and was fully available. All aspects of the patient interview, examination, medical decision making process, and medical care plan development were reviewed and approved by the faculty preceptor. The faculty preceptor is aware and concurs with the plan as stated in the body of this note and will attest to such by his/her cosignature. EMMA DUFFY DO Jan 15, 2017 16:01
[2017-01-15 21:00] VITALS: BP 123/85
[2017-01-15] MEDS: ROSUVASTATIN 10 MG TAB (CRESTOR) PO SCH (21:06)
[2017-01-16] MEDS: ALBUTEROL SULFATE 2.5 MG/0.5 ML INH NEB SOLN NEB SCH ×4 (01:19→19:25)
[2017-01-16] MEDS: VANCOMYCIN ORAL SOL 250MG/5ML ORAL SYRINGE PO SCH ×4 (05:23→23:43)
[2017-01-16 06:30] VITALS: BP 114/68
[2017-01-16] MEDS: LACTOBACILLUS ACIDOPHILUS CAP (BACID) PO SCH ×2 (07:44→20:06)
[2017-01-16] MEDS: levETIRAcetam 250MG TABLET (KEPPRA) PO SCH ×2 (07:44→20:06)
[2017-01-16] MEDS: CALCIUM/VITAMIN D 500 MG TAB PO SCH ×2 (07:44→20:06)
[2017-01-16] MEDS: ONDANSETRON 4 MG ORAL DISINTEGRATING TAB (S0181) PO SCH ×3 (07:44→17:25)
[2017-01-16] MEDS: CYANOCOBALAMIN 500 MCG TAB PO SCH (07:44)
[2017-01-16] MEDS: SUCRALFATE SUSP 1GM/10ML UD PO SCH ×4 (07:45→20:07)
[2017-01-16] MEDS: LORATADINE 10 MG TAB PO SCH (07:45)
[2017-01-16] MEDS: OLANZapine 2.5MG TABLET PO SCH ×2 (07:46→20:06)
[2017-01-16] MEDS: NYSTATIN 100,000 UNITS/GM TOPICAL PWD 15 GM TOP SCH ×2 (07:46→20:06)
[2017-01-16] MEDS: BUDESONIDE 0.5 MG/2 ML INHALATION SUSPENSION INH SCH ×2 (08:00→19:25)
[2017-01-16 09:56] LABS: MEAN CORPUSCULAR HEMOGLOBIN 26.5 pg (27.0-33.0); MEAN CORPUSCULAR HGB CONC 31.5 g/dl (32.0-36.5); MEAN CORPUSCULAR VOLUME 84.3 fl (80.0-96.0); PLATELET COUNT, AUTOMATED 476 10^3/uL (150-450); RED CELL DISTRIBUTION WIDTH 15.4 % (11.5-14.5)
[2017-01-16 09:58] LABS: POSITIVE DIFF POS FLAG; WHITE BLOOD COUNT 35.5 10^3/uL (4.0-10.0)
[2017-01-16 09:59] LABS: POS COUNT POS FLAG
[2017-01-16 10:00] LABS: ADD MANUAL DIFFER YES; DIFF SLIDE NUMBER 2
[2017-01-16 11:35] LABS: ANISOCYTOSIS 1+
--- NOTE | 2017-01-16 12:33 | IPNPDOC ---
Subjective Date Seen The patient was seen on 01/16/17. Subjective Chief Complaint/HPI The patient is a 76-year-old female admitted with a reason for visit of Brain Mass. Events since last encounter Still with diarrhea. Denies abd pain or n/v Constitutional: Denies: Chills, Fever Pulmonary: Denies: Dyspnea, Cough Cardiovascular: Denies: Chest Pain, Palpitations, Orthopnea Gastrointestinal: Reports: Diarrhea, Denies: Nausea, Vomiting, Abdominal Pain, Constipation Objective Physical Examination General Exam: Positive: Alert, No Acute Distress Chest Exam: Positive: Clear to auscultation, Diminished, Negative: Rales, Rhonchi, Wheezing Heart Exam: Positive: Rate Normal, Irregular Rhythm, Normal S1, Normal S2, Negative: Gallops, Murmurs, Rubs Abdomen Exam: Positive: Normal bowel sounds, Soft, Negative: Tenderness Assessment /Plan Problems (1) C. difficile diarrhea Status: Acute Problem Text: 01/16 - WBC trending down Still with diarrhea Cont higher dose oral Vanco and Probiotics. 01/15: White blood cell count has increased today, likely secondary to C. difficile infection, continue current treatment 01/14: Patient's PCR for C. difficile positive, she was started on vancomycin 250 mg by mouth every 6 hours overnight. We will back off on dose to vancomycin 125 mg by mouth every 6 hours as recommended by infectious disease (2) Glioblastoma multiforme Status: Chronic Problem Text: 01/15: I spoke with Dr. Ramírez's on the phone today, she stated that she would be able to call the patient's family to give them an update on her status. She was provided with contact information for patient's daughter who is her healthcare proxy. I attempted to call Dr. Jordan's office but was unable to speak with him today. 01/14: Plan to discuss patient's care further tomorrow with Dr. Jordan in Dr. Ramírez's 01/13 - Per Dr. Jordan's note yesterday "family waiting for chemo and RT" - Plan needs to be clarified there had been discussion of ENERGY ADVISOR shunt placement, but Dr. Jordan's notes do not indicate that he is planning this 01/08: A family visit was held yesterday, at this time family believes that they will be able to provide 24/7 care for her once she is discharged. There has been talk about patient potentially having a ENERGY ADVISOR shunt placed early next week. 11/24/16 sp Stent-based frameless stereotactic left posterior temporal-parietal craniotomy with microsurgical resection of large mass, cranioplasty, and marked brain edema and swelling treated with the left lateral ventriculostomy for Left temporal-parietal GBM with brain swelling by Dr. 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 Echo 12/22 showed a-flutter LA 4 cm Rate controlled on bisoprolol Not candidate for anticoagulation until after neurosurgical procedure (6) Regurgitation of food Problem Text: 01/11: no further regurgitation seen or noted by nursing staff 01/07: Patient having some regurgitation while examining patient, continue to monitor 01/04: Per nursing most of the nausea happens when the patient tells them she is nervous. She has been nauseated today, but was able to keep down lunch and a snack. I have increased her olanzapine to BId, and have recommended that she take smaller bites and eat more slowly. Her family members do admit that she tends to "ibarra down food." chronic PP NBNB vomiting p solids-favor central nausea and gastritis-induced by anorexia, chronic po steroids, abx effect 01/03 changed ondansetron OD 4 AC TID 30 mins prior to meals, continue panto 40 qAM and + Carafate 1 AC TID/QHS, last day of vanco/meropen 01/[address] (7) Hypotension Status: Resolved Response to Treatment: Stable Problem Text: 01/15: Blood pressures remain stable 01/11: BPs remain stable 01/07: Blood pressure stable, continue to monitor 01/05: Stable today with pressures around 115-120/70-80. 01/04: Stable, today 103/54 01/03: Stable, continue dexamethasone 01/02: Blood pressure stable at 108/57 today, continue dexamethasone 01/01: Blood pressure 103/62 today, lowest blood pressure over last 24 hours 90/ 50. Patient has been stable for about the last 24 hours. Continue dexamethasone. 12/31/2016: soft BP this am 94/50. 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 01/07: Patient not very conversive on examination today 01/06 - Her mental status waxes and wanes - alert at times and groggy at other times. 01/04: Patient is awake, alert and able to answer questions appropriately. 01/03: Somnolent and easily arousable, verbal and able to answer questions appropriately 01/02: Patient easily arousable today, verbal and able to answer questions appropriately 01/01: Patient initially sleepy but arousable on examination. Verbal and able to answer questions. Her changes in mental status appear to be secondary to her neurological condition. 12/31: Change in responsiveness compared to yesterday. CT head and chest today. Dr. Jordan, notified and will eval patient. (9) Septic shock Status: Resolved Problem Text: 01/06 - BP variable but overall stable on Bisoprolol 01/03: Final day of vancomycin and meropenem 01/01: Continue vancomycin and meropenem until 01/03/17 12/30/2016: see ID note. IV Meropenem and Vancomycin until 01/03/17. 12/29: Patient maintaining blood pressure without levophed. She did have some lower blood pressures around 1:00 this afternoon, she will remain in ICU through tomorrow. If she maintains her blood pressure, does not require restarting of pressors, she may be able to be transferred to PCU tomorrow. If patient does drop her blood pressure, hypotension may be secondary to pituitary dysfunction, consider trial of hydrocortisone 12/28: maintaining bp with 5mcg levophed, CVP 7. Rhythm varies between sinus and afib 12/28: BP down, respiratory difficulties with fluid challenge. Back to ICU with Levophed initiated. New lactic acid ordered stat and for 4 hours. Will check CVP as another indicator of volume status. Code status still Full Code. 12/27: Resolved, patient stable in PCU off of pressors. Continue to monitor for recurrence. 12/25: Patient required initiation of norepinephrine overnight. Blood pressure stable on norepinephrine. A discussion was had with the family regarding her current situation, they were made aware of her recent deterioration. She will remain a full code at this time, family will discuss her further care amongst themselves. 12/24: Developed septic shock today, T-max overnight of 103.4, hypotension with blood pressure as low as 76/42. Patient was given a 30 mL per KG fluid bolus. Patient was transferred to ICU and intensive care was consulted. (10) Meningitis Status: Resolved Response to Treatment: Stable, Improving Discussed With: Nurse, Patient Problem Specific Plan: Consult Specialist, Monitor Clinically, Repeat Labs Problem Text: 01/03: Final day of vancomycin and meropenem 01/01: Continue Vanco and meropenem until 01/03/17 12/30/2016: see ID note. IV Meropenem and Vancomycin until 01/03/17. 12/28 continue vancomycin and meropenem 12/27: As per infectious disease patient will continue on Vanco and meropenem for a treatment duration of 2 weeks 12/25: CSF PCR negative, repeat CSF Gram stain and culture was negative, anaerobic culture negative, blood culture 1 no growth after 24 hours 12/24: Patient had drain of scalp swelling yesterday which was consistent CSF, showing 718 white blood cells, 95% PMNs, glucose of 15, total protein of 82. She is concurrently being managed by infectious disease, she will continue on vancomycin and meropenem. 12/23: Pt with Nosocomial meningitis, she is being followed by ID. She has had LP with pleocytosis and neutrophils, her T protein is elevated. her cultures have been Neg but she had received Rocephin prior to LP being performed. Vanco/ Meropenam dosing per ID. (11) Diastolic congestive heart failure Permanent Comment: 12/22/16: Echocardiogram showed hyperdynamic left ventricular systolic function, LVEF 75%, atrial flutter. Moderate elevation of pulmonary artery systolic pressure. Mild aortic valve sclerosis, mild aortic regurgitation. Negative for mitral regurgitation. Mild left atrial dilation Last Edited By: Alexus Herman PA-C on Dec 23, 2016 10:09 Status: Chronic Problem Text: 12/28: acute decompensation yesterday when attempt to use fluid bolus to support hypotension was made. she developed mild dyspnea, cxr showed vascular engorgement, moved to ICU for levophed to address hypotension. 12/23 appears compensated. 12/21 BNP 1541 c mild decompensation-held IVF and amlo 2.5 BID-repeat TTE (12) Seizure disorder Status: Chronic Problem Text: 12/25: CSF PCR negative, repeat CSF Gram stain and culture was negative, anaerobic culture negative, blood culture 1 no growth after 24 hours 12/22: CSF culture did not show any organisms, CSF PCR still pending 12/21/2016: LP completed a 12/20/2016. Patient has some soreness in the back around puncture site. CSF culture pending. 2 focus 2 brain tumor resection 12/[address] head c stable STS/fluid collection seen on 12/18 CT-case dw Dr. Jordan who agrees favors fluid is 2 to necrotic tissue, but given fever/MS change, agrees c LP (as did Dr. Castillo)-case dw c Dr. Arturo Foster who wanted clearance from [facility] 12/19 Dr. Herrera increased leve to 1000 BID given sz episode-partially 2 UTI/hypoNa /? fluid collection 12/19 EEG This EEG in awake, drowsy states, stage 1 and 2 sleep is abnormal due to presence of left temporal intermittent rhythmic delta activity/temporal intermittent rhythmic delta activity (TIRDA) with separate to left central head region consistent with focal cortical structural or functional abnormality with epileptic potential. No clinical or electrographic seizures were recorded. Clinical correlation is recommended. DD: KERRI HERRERA MD 12/20/16 0658 12/18 CT head The patient is status post resection of a left temporal lobe tumor. There is postoperative change in the posterior left temporal lobe with decreased mass effect compared to the previous study. There is increased soft tissue swelling and fluid overlying the craniotomy site. (13) Anemia Status: Chronic Problem Specific Plan: Monitor Clinically Problem Text: 01/15: Hemoglobin has risen to 11.1, continue to monitor 01/11: Hemoglobin stable at 9.1, continue to monitor 01/08: Hemoglobin stable at 9.8 01/05: Hemoglobin at 9.5 today from 10.6 yesterday. Continue to monitor daily. 01/01: Hemoglobin stable at 9.8 12/29: Hemoglobin stable at 10.8 12/27: Hemoglobin stable at 10.3 12/25: Hemoglobin stable at 10.5 12/23 - No labs ordered, will obtain. Hgb had trended from 10.8 12/21 to 9.7 12/21/2016: Hemoglobin improving today, 10.8. caution on chronic po steroid (on panto 40 QD for px) 12/20 hgb down to 9.4 (10.2, 11.2)-check HO baseline hgb 12s (12/09 wt 69, 12/20 79) On Supplemental B12 and Iron. 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 Patient was set up for biopsy of the nodule to rule out primary lesion. The nodule could not be biopsied by interventional radiology secondary to size. Dr. Morales noted that the lesion was unlikely a primary metastatic lesion. Patient proceeded to have a biopsy of her brain mass which resulted in glioblastoma. Lung nodule will need to be followed as outpatient. 11/24/2016: I reconfirmed this assessment with Dr. 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 (qualitative field coordinator) 11/19/16: Per Interventional Rad: most likely not a primary. Proceed with brain mass bx and pathology prior to lung nodule eval. 11/17/2016: Pulmonology, informal consult, advised against bronchoscopy. Recommends interventional to see if can get to nodule. Dr. Jordan is requesting that we strongly consider working up this lung nodule while she is in the hospital. He has a strong clinical suspicion that the brain lesion is metastatic. Additionally if she has a primary lung cancer it may change his recommendation to do an excisional bx of the brain lesion which almost assuredly leave her with some weakness and speech deficits. Tomorrow we should contact IR and/or Pulm to see whether CT guided bx or navigational bronchoscopy with bx is the best way to get a sample of this lesion. ------ CT Chest: 14 mm nodule in the anterior segment of the right lower lobe, not present on the comparison study. (17) Brain compression Status: Acute Response to Treatment: Controlled Problem Specific Plan: Monitor Clinically Problem Text: Dr. Jordan, brain edema and swelling treated with the left lateral ventriculostomy on 11/24/16. (18) HTN (hypertension) Status: Chronic Problem Specific Plan: Monitor Clinically Problem Text: BP is well controlled today. Continue current regimen of Bisoprolol (19) CAD (coronary artery disease) Status: Chronic Problem Specific Plan: Monitor Clinically Problem Text: No active symptoms (20) COPD (chronic obstructive pulmonary disease) Status: Chronic Problem Specific Plan: Monitor Clinically Problem Text: Stable Plan/VTE VTE Prophylaxis Ordered?: Yes (TEDs and SCDs) VTE Exclusion Pharmacological: Bleeding Risk (intracranial procedure) Plan Therapy: PT, OT Anticipated Discharge: Home With Services (based on therapy's recommendation) VS, I&O, 24H, Fishbone Vital Signs/I&O Vital Signs Date Time Temp Pulse Resp B/P (MAP) Pulse Ox O2 Delivery O2 Flow Rate FiO2 01/16/17 06:30 96.9 110 18 114/68 (83) 96 Nasal Cannula 2.0 Laboratory Data 24H LABS Laboratory Tests 2 01/16/17 09:43: White Blood Count 35.5*H, Red Blood Count 4.07, Hemoglobin 10.8L, Hematocrit 34.3L, Mean Corpuscular Volume 84.3, Mean Corpuscular Hemoglobin 26.5L, Mean Corpuscular Hemoglobin Concent 31.5L, Red Cell Distribution Width 15.4H, Platelet Count 476H, Neutrophils # (Auto) , Monocytes # (Auto) , Nucleated Red Blood Cells % (auto) 0.1H, Neutrophils 88H, Lymphocytes (Manual) 3L, Monocytes ( Manual) 9H, Platelet Estimate INCREASED, Anisocytosis 1+ CBC/BMP Laboratory Tests 01/16/17 09:43 Red Blood Count 4.07, Mean Corpuscular Volume 84.3, Mean Corpuscular Hemoglobin 26.5 L, Mean Corpuscular Hemoglobin Concent 31.5 L, Red Cell Distribution Width 15.4 H, Neutrophils # (Auto) , Monocytes # (Auto) Microbiology Microbiology 01/12/17 Blood Culture - Preliminary, Resulted No Growth after 72 hours. All specime... 01/12/17 Blood Culture - Preliminary, Resulted No Growth after 72 hours. All specime... 01/09/17 Gram Stain - Final, Complete 01/09/17 CSF Culture - Final, Complete 01/13/17 Clostridium difficile (PCR) - Final, Complete 01/12/17 Respiratory Virus Panel (PCR) ([facility]) - Final, Complete 01/12/17 Catheter Tip Culture - Final, Complete NEVAEH MORROW PA-C Jan 16, 2017 12:33
[2017-01-16 14:00] VITALS: BP 124/70
--- NOTE | 2017-01-16 16:25 | IPN ---
DATE: 01/16/2017 Mrs. Santos seems to be slowly failing. She is very lethargic. She barely can sit up to be examined. She denies any fever, chills. She has mild abdominal pain. Her diarrhea has improved. She was seen today by Dr. Esparza who was questioning whether she would be a good candidate for radiation for her brain glioblastoma. On physical exam temperature is 96.9, pulse 110, respirations 18, blood pressure 114/68, O2 sat 96% on 2 liters nasal cannula. Heart: Normal S1-S2. No murmurs. Tachycardia. Lungs: Clear. No wheezes or rhonchi. Abdomen is soft, nontender. No visceromegaly. Extremities: No edema. The patient moves all extremities no neck stiffness. No swelling at surgical site. LABORATORY DATA: White count is 35.5 down from 46.9, hemoglobin 10.8, hematocrit 34.3, platelets 476. Sodium 140, potassium 3.6, chloride 106, bicarb 25, BUN 40 , creatinine 0.77, glucose 125, calcium 9.9. Stool for C diff was positive, Peck 1 strain positive. IMPRESSION: 1. Severe C difficile colitis with NAP1 strain positive on vancomycin 250 mg four times a day. Leukocytosis has improved. 2. Astrocytoma with worsening edema and recurrent tumor. The patient options are radiation and [facility] versus hospice. Patient has drastically deteriorated over the past month and has not had been debilitated not being and able to get out of bed. PLAN: Continue vancomycin for total of 2 weeks. The case will be discussed with her family and Dr. Smiht regarding treatment of her glioblastoma. MTDD
[2017-01-16] MEDS: ROSUVASTATIN 10 MG TAB (CRESTOR) PO SCH (20:06)
[2017-01-16 22:00] VITALS: BP 127/77
[2017-01-17] MEDS: ALBUTEROL SULFATE 2.5 MG/0.5 ML INH NEB SOLN NEB SCH ×4 (01:16→19:58)
[2017-01-17] MEDS: VANCOMYCIN ORAL SOL 250MG/5ML ORAL SYRINGE PO SCH ×4 (05:49→23:41)
[2017-01-17 06:00] VITALS: BP 123/73
[2017-01-17] MEDS: BUDESONIDE 0.5 MG/2 ML INHALATION SUSPENSION INH SCH ×2 (07:17→19:58)
[2017-01-17 07:18] LABS: MEAN CORPUSCULAR HEMOGLOBIN 26.1 pg (27.0-33.0); MEAN CORPUSCULAR HGB CONC 31.6 g/dl (32.0-36.5); MEAN CORPUSCULAR VOLUME 82.5 fl (80.0-96.0); PLATELET COUNT, AUTOMATED 438 10^3/uL (150-450); RED CELL DISTRIBUTION WIDTH 15.4 % (11.5-14.5); WHITE BLOOD COUNT 26.7 10^3/uL (4.0-10.0)
[2017-01-17 07:41] LABS: ADD MANUAL DIFFER YES; DIFF SLIDE NUMBER 2; POS COUNT POS FLAG; POSITIVE DIFF POS FLAG; POSITIVE MORPH POS FLAG
[2017-01-17 07:48] LABS: BANDS 2 % (< 11); TOXIC VACUOLATION 1+
[2017-01-17 07:50] LABS: POLYCHROMASIA 1+
[2017-01-17] MEDS: LACTOBACILLUS ACIDOPHILUS CAP (BACID) PO SCH ×2 (08:03→20:04)
[2017-01-17] MEDS: OLANZapine 2.5MG TABLET PO SCH ×2 (08:03→20:04)
[2017-01-17] MEDS: ONDANSETRON 4 MG ORAL DISINTEGRATING TAB (S0181) PO SCH ×3 (08:03→17:17)
[2017-01-17] MEDS: SUCRALFATE SUSP 1GM/10ML UD PO SCH ×4 (08:03→20:04)
[2017-01-17] MEDS: CALCIUM/VITAMIN D 500 MG TAB PO SCH ×2 (08:03→20:04)
[2017-01-17] MEDS: CYANOCOBALAMIN 500 MCG TAB PO SCH (08:03)
[2017-01-17] MEDS: levETIRAcetam 250MG TABLET (KEPPRA) PO SCH ×2 (08:03→20:04)
[2017-01-17] MEDS: LORATADINE 10 MG TAB PO SCH (08:03)
[2017-01-17] MEDS: NYSTATIN 100,000 UNITS/GM TOPICAL PWD 15 GM TOP SCH ×2 (08:03→20:05)
[2017-01-17 14:00] VITALS: BP 137/80
[2017-01-17] MEDS: ROSUVASTATIN 10 MG TAB (CRESTOR) PO SCH (20:04)
--- NOTE | 2017-01-17 21:16 | IPNPDOC ---
Subjective Date Seen The patient was seen on 01/17/17. Subjective Chief Complaint/HPI The patient is a 76-year-old female admitted with a reason for visit of Brain Mass. Events since last encounter Patient states that she feels weak today. Family members tells me that she only wants to eat soup and is refusing to eat solid foods. Additionally, she is not drinking Ensure supplement. They had spoke with oncology yesterday and they understand that chemotherapy and radiation therapy are not good options at this time. They are considering hospice care if she qualifies. Patient is afebrile. Is in no pain at the moment. Objective Physical Examination General Exam: Positive: Alert, No Acute Distress Chest Exam: Positive: Clear to auscultation, Diminished, Negative: Rales, Rhonchi, Wheezing Heart Exam: Positive: Rate Normal, Irregular Rhythm, Normal S1, Normal S2, Negative: Gallops, Murmurs, Rubs Abdomen Exam: Positive: Normal bowel sounds, Soft, Negative: Tenderness Assessment /Plan Problems (1) C. difficile diarrhea Status: Acute Problem Text: 01/17 WBC 26.7 continues to trend down (from 35.5 yesterday). Still has loose stools, 4x yesterday. Continue with Vanco and probiotics. 01/16 - WBC trending down Still with diarrhea Cont higher dose oral Vanco and Probiotics. 01/15: White blood cell count has increased today, likely secondary to C. difficile infection, continue current treatment 01/14: Patient's PCR for C. difficile positive, she was started on vancomycin 250 mg by mouth every 6 hours overnight. We will back off on dose to vancomycin 125 mg by mouth every 6 hours as recommended by infectious disease (2) Glioblastoma multiforme Status: Chronic Problem Text: 01/16: Family members understand that radiation or chemotherapy are poor options for her given her infections and weak state. They mentioned possible hospice care. 01/15: I spoke with Dr. Ramírez's on the phone today, she stated that she would be able to call the patient's family to give them an update on her status. She was provided with contact information for patient's daughter who is her healthcare proxy. I attempted to call Dr. Jordan's office but was unable to speak with him today. 01/14: Plan to discuss patient's care further tomorrow with Dr. Jordan in Dr. Ramírez's 01/13 - Per Dr. Jordan's note yesterday "family waiting for chemo and RT" - Plan needs to be clarified there had been discussion of SHELL SORTER shunt placement, but Dr. Jordna's notes do not indicate that he is planning this 01/08: A family visit was held yesterday, at this time family believes that they will be able to provide 24/7 care for her once she is discharged. There has been talk about patient potentially having a SHELL SORTER shunt placed early next week. 11/24/16 sp Stent-based frameless stereotactic left posterior temporal-parietal craniotomy with microsurgical resection of large mass, cranioplasty, and marked brain edema and swelling treated with the left lateral ventriculostomy for Left temporal-parietal GBM with brain swelling by Dr. 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 Echo 12/22 showed a-flutter LA 4 cm Rate controlled on bisoprolol Not candidate for anticoagulation until after neurosurgical procedure (6) Regurgitation of food Problem Text: 01/11: no further regurgitation seen or noted by nursing staff 01/07: Patient having some regurgitation while examining patient, continue to monitor 01/04: Per nursing most of the nausea happens when the patient tells them she is nervous. She has been nauseated today, but was able to keep down lunch and a snack. I have increased her olanzapine to BId, and have recommended that she take smaller bites and eat more slowly. Her family members do admit that she tends to "ibarra down food." chronic PP NBNB vomiting p solids-favor central nausea and gastritis-induced by anorexia, chronic po steroids, abx effect 01/03 changed ondansetron OD 4 AC TID 30 mins prior to meals, continue panto 40 qAM and + Carafate 1 AC TID/QHS, last day of vanco/meropen 01/[address] (7) Hypotension Status: Resolved Response to Treatment: Stable Problem Text: 01/15: Blood pressures remain stable 01/11: BPs remain stable 01/07: Blood pressure stable, continue to monitor 01/05: Stable today with pressures around 115-120/70-80. 01/04: Stable, today 103/54 01/03: Stable, continue dexamethasone 01/02: Blood pressure stable at 108/57 today, continue dexamethasone 01/01: Blood pressure 103/62 today, lowest blood pressure over last 24 hours 90/ 50. Patient has been stable for about the last 24 hours. Continue dexamethasone. 12/31/2016: soft BP this am 94/50. 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 01/07: Patient not very conversive on examination today 01/06 - Her mental status waxes and wanes - alert at times and groggy at other times. 01/04: Patient is awake, alert and able to answer questions appropriately. 01/03: Somnolent and easily arousable, verbal and able to answer questions appropriately 01/02: Patient easily arousable today, verbal and able to answer questions appropriately 01/01: Patient initially sleepy but arousable on examination. Verbal and able to answer questions. Her changes in mental status appear to be secondary to her neurological condition. 12/31: Change in responsiveness compared to yesterday. CT head and chest today. Dr. Jordan, notified and will eval patient. (9) Septic shock Status: Resolved Problem Text: 01/06 - BP variable but overall stable on Bisoprolol 01/03: Final day of vancomycin and meropenem 01/01: Continue vancomycin and meropenem until 01/03/17 12/30/2016: see ID note. IV Meropenem and Vancomycin until 01/03/17. 12/29: Patient maintaining blood pressure without levophed. She did have some lower blood pressures around 1:00 this afternoon, she will remain in ICU through tomorrow. If she maintains her blood pressure, does not require restarting of pressors, she may be able to be transferred to PCU tomorrow. If patient does drop her blood pressure, hypotension may be secondary to pituitary dysfunction, consider trial of hydrocortisone 12/28: maintaining bp with 5mcg levophed, CVP 7. Rhythm varies between sinus and afib 12/28: BP down, respiratory difficulties with fluid challenge. Back to ICU with Levophed initiated. New lactic acid ordered stat and for 4 hours. Will check CVP as another indicator of volume status. Code status still Full Code. 12/27: Resolved, patient stable in PCU off of pressors. Continue to monitor for recurrence. 12/25: Patient required initiation of norepinephrine overnight. Blood pressure stable on norepinephrine. A discussion was had with the family regarding her current situation, they were made aware of her recent deterioration. She will remain a full code at this time, family will discuss her further care amongst themselves. 12/24: Developed septic shock today, T-max overnight of 103.4, hypotension with blood pressure as low as 76/42. Patient was given a 30 mL per KG fluid bolus. Patient was transferred to ICU and intensive care was consulted. (10) Meningitis Status: Resolved Response to Treatment: Stable, Improving Discussed With: Nurse, Patient Problem Specific Plan: Consult Specialist, Monitor Clinically, Repeat Labs Problem Text: 01/03: Final day of vancomycin and meropenem 01/01: Continue Vanco and meropenem until 01/03/17 12/30/2016: see ID note. IV Meropenem and Vancomycin until 01/03/17. 12/28 continue vancomycin and meropenem 12/27: As per infectious disease patient will continue on Vanco and meropenem for a treatment duration of 2 weeks 12/25: CSF PCR negative, repeat CSF Gram stain and culture was negative, anaerobic culture negative, blood culture 1 no growth after 24 hours 12/24: Patient had drain of scalp swelling yesterday which was consistent CSF, showing 718 white blood cells, 95% PMNs, glucose of 15, total protein of 82. She is concurrently being managed by infectious disease, she will continue on vancomycin and meropenem. 12/23: Pt with Nosocomial meningitis, she is being followed by ID. She has had LP with pleocytosis and neutrophils, her T protein is elevated. her cultures have been Neg but she had received Rocephin prior to LP being performed. Vanco/ Meropenam dosing per ID. (11) Diastolic congestive heart failure Permanent Comment: 12/22/16: Echocardiogram showed hyperdynamic left ventricular systolic function, LVEF 75%, atrial flutter. Moderate elevation of pulmonary artery systolic pressure. Mild aortic valve sclerosis, mild aortic regurgitation. Negative for mitral regurgitation. Mild left atrial dilation Last Edited By: Alexus Herman PA-C on Dec 23, 2016 10:09 Status: Chronic Problem Text: 12/28: acute decompensation yesterday when attempt to use fluid bolus to support hypotension was made. she developed mild dyspnea, cxr showed vascular engorgement, moved to ICU for levophed to address hypotension. 12/23 appears compensated. 12/21 BNP 1541 c mild decompensation-held IVF and amlo 2.5 BID-repeat TTE (12) Seizure disorder Status: Chronic Problem Text: 12/25: CSF PCR negative, repeat CSF Gram stain and culture was negative, anaerobic culture negative, blood culture 1 no growth after 24 hours 12/22: CSF culture did not show any organisms, CSF PCR still pending 12/21/2016: LP completed a 12/20/2016. Patient has some soreness in the back around puncture site. CSF culture pending. 2 focus 2 brain tumor resection 12/[address] head c stable STS/fluid collection seen on 12/18 CT-case dw Dr. Jordan who agrees favors fluid is 2 to necrotic tissue, but given fever/MS change, agrees c LP (as did Dr. Castillo)-case dw c Dr. Arturo Foster who wanted clearance from [facility] 12/19 Dr. Herrera increased leve to 1000 BID given sz episode-partially 2 UTI/hypoNa /? fluid collection 12/19 EEG This EEG in awake, drowsy states, stage 1 and 2 sleep is abnormal due to presence of left temporal intermittent rhythmic delta activity/temporal intermittent rhythmic delta activity (TIRDA) with separate to left central head region consistent with focal cortical structural or functional abnormality with epileptic potential. No clinical or electrographic seizures were recorded. Clinical correlation is recommended. DD: KERRI HERRERA MD 12/20/16 0658 12/18 CT head The patient is status post resection of a left temporal lobe tumor. There is postoperative change in the posterior left temporal lobe with decreased mass effect compared to the previous study. There is increased soft tissue swelling and fluid overlying the craniotomy site. (13) Anemia Status: Chronic Problem Specific Plan: Monitor Clinically Problem Text: 01/15: Hemoglobin has risen to 11.1, continue to monitor 01/11: Hemoglobin stable at 9.1, continue to monitor 01/08: Hemoglobin stable at 9.8 01/05: Hemoglobin at 9.5 today from 10.6 yesterday. Continue to monitor daily. 01/01: Hemoglobin stable at 9.8 12/29: Hemoglobin stable at 10.8 12/27: Hemoglobin stable at 10.3 12/25: Hemoglobin stable at 10.5 12/23 - No labs ordered, will obtain. Hgb had trended from 10.8 12/21 to 9.7 12/21/2016: Hemoglobin improving today, 10.8. caution on chronic po steroid (on panto 40 QD for px) 12/20 hgb down to 9.4 (10.2, 11.2)-check HO baseline hgb 12s (12/09 wt 69, 12/20 79) On Supplemental B12 and Iron. 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 Patient was set up for biopsy of the nodule to rule out primary lesion. The nodule could not be biopsied by interventional radiology secondary to size. Dr. Morales noted that the lesion was unlikely a primary metastatic lesion. Patient proceeded to have a biopsy of her brain mass which resulted in glioblastoma. Lung nodule will need to be followed as outpatient. 11/24/2016: I reconfirmed this assessment with Dr. 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 Proceed with brain mass bx and pathology prior to lung nodule eval. 11/17/2016: Pulmonology, informal consult, advised against bronchoscopy. Recommends interventional to see if can get to nodule. Dr. Jordan is requesting that we strongly consider working up this lung nodule while she is in the hospital. He has a strong clinical suspicion that the brain lesion is metastatic. Additionally if she has a primary lung cancer it may change his recommendation to do an excisional bx of the brain lesion which almost assuredly leave her with some weakness and speech deficits. Tomorrow we should contact IR and/or Pulm to see whether CT guided bx or navigational bronchoscopy with bx is the best way to get a sample of this lesion. ------ CT Chest: 14 mm nodule in the anterior segment of the right lower lobe, not present on the comparison study. (17) Brain compression Status: Acute Response to Treatment: Controlled Problem Specific Plan: Monitor Clinically Problem Text: Dr. Jordan, brain edema and swelling treated with the left lateral ventriculostomy on 11/24/16. (18) HTN (hypertension) Status: Chronic Problem Specific Plan: Monitor Clinically Problem Text: BP is well controlled today. Continue current regimen of Bisoprolol (19) CAD (coronary artery disease) Status: Chronic Problem Specific Plan: Monitor Clinically Problem Text: No active symptoms (20) COPD (chronic obstructive pulmonary disease) Status: Chronic Problem Specific Plan: Monitor Clinically Problem Text: Stable Plan/VTE VTE Prophylaxis Ordered?: Yes (TEDs and SCDs) VTE Exclusion Pharmacological: Bleeding Risk (intracranial procedure) Plan Therapy: PT, OT Anticipated Discharge: Home With Services (based on therapy's recommendation) VS, I&O, 24H, Fishbone Vital Signs/I&O Vital Signs Date Time Temp Pulse Resp B/P (MAP) Pulse Ox O2 Delivery O2 Flow Rate FiO2 01/17/17 07:18 Nasal Cannula 2.0 01/17/17 06:00 96.9 106 18 123/73 (90) 98 I&O- Last 24 Hours up to 6 AM 01/18/17 06:00 Intake Total 240 ml Balance 240 ml Laboratory Data 24H LABS Laboratory Tests 2 01/17/17 07:09: Immature Granulocyte % (Auto) , Nucleated Red Blood Cells % (auto) 0.1H, Neutrophils 81H, Band Neutrophils 2, Lymphocytes (Manual) 6L, Monocytes (Manual ) 9H, Metamyelocytes 2H, Toxic Vacuolation 1+, Platelet Estimate INCREASED, Polychromasia 1+, Basophilic Stippling 1+ CBC/BMP Laboratory Tests 01/17/17 07:09 Red Blood Count 4.06, Mean Corpuscular Volume 82.5, Mean Corpuscular Hemoglobin 26.1 L, Mean Corpuscular Hemoglobin Concent 31.6 L, Red Cell Distribution Width 15.4 H Microbiology Microbiology 01/12/17 Blood Culture - Final, Complete NO GROWTH AFTER 5 DAYS 01/12/17 Blood Culture - Final, Complete NO GROWTH AFTER 5 DAYS 01/09/17 Gram Stain - Final, Complete 01/09/17 CSF Culture - Final, Complete 01/13/17 Clostridium difficile (PCR) - Final, Complete 01/12/17 Respiratory Virus Panel (PCR) (HE[facility]) - Final, Complete 01/12/17 Catheter Tip Culture - Final, Complete GME ATTESTATION GME ATTESTATION My preceptor for this patient encounter was physically present in the building during the encounter and was fully available. As needed, all aspects of the patient interview, examination, medical decision making process, and medical care plan development were reviewed and approved by the preceptor. Preceptor is aware and concurs with the plan as stated in the body of this note and will attest to such by his/her cosignature. CARRIE GARZA DO Jan 17, 2017 14:45
[2017-01-17 22:00] VITALS: BP 130/70
[2017-01-18] MEDS: ALBUTEROL SULFATE 2.5 MG/0.5 ML INH NEB SOLN NEB SCH ×4 (02:00→19:56)
[2017-01-18] MEDS: VANCOMYCIN ORAL SOL 250MG/5ML ORAL SYRINGE PO SCH ×4 (05:31→23:33)
[2017-01-18 06:00] VITALS: BP 115/68
[2017-01-18 06:21] LABS: MEAN CORPUSCULAR HEMOGLOBIN 26.3 pg (27.0-33.0); MEAN CORPUSCULAR HGB CONC 31.9 g/dl (32.0-36.5); MEAN CORPUSCULAR VOLUME 82.3 fl (80.0-96.0); PLATELET COUNT, AUTOMATED 426 10^3/uL (150-450); RED CELL DISTRIBUTION WIDTH 15.4 % (11.5-14.5); WHITE BLOOD COUNT 25.1 10^3/uL (4.0-10.0)
[2017-01-18 06:22] LABS: ADD MANUAL DIFFER YES; DIFF SLIDE NUMBER 1; POS COUNT POS FLAG; POSITIVE DIFF POS FLAG; POSITIVE MORPH POS FLAG
[2017-01-18 06:41] LABS: BANDS 1 % (< 11)
[2017-01-18 06:42] LABS: ANISOCYTOSIS 1+; POLYCHROMASIA 1+
[2017-01-18 06:43] LABS: TOXIC VACUOLATION 1+
[2017-01-18] MEDS: BUDESONIDE 0.5 MG/2 ML INHALATION SUSPENSION INH SCH ×2 (07:49→19:56)
[2017-01-18] MEDS: LORATADINE 10 MG TAB PO SCH (08:46)
[2017-01-18] MEDS: ONDANSETRON 4 MG ORAL DISINTEGRATING TAB (S0181) PO SCH ×3 (08:46→17:11)
[2017-01-18] MEDS: levETIRAcetam 250MG TABLET (KEPPRA) PO SCH ×2 (08:46→20:15)
[2017-01-18] MEDS: CYANOCOBALAMIN 500 MCG TAB PO SCH (08:46)
[2017-01-18] MEDS: OLANZapine 2.5MG TABLET PO SCH ×2 (08:46→20:15)
[2017-01-18] MEDS: LACTOBACILLUS ACIDOPHILUS CAP (BACID) PO SCH ×2 (08:46→20:15)
[2017-01-18] MEDS: CALCIUM/VITAMIN D 500 MG TAB PO SCH ×2 (08:46→20:16)
[2017-01-18] MEDS: SUCRALFATE SUSP 1GM/10ML UD PO SCH ×4 (08:46→20:16)
[2017-01-18] MEDS: NYSTATIN 100,000 UNITS/GM TOPICAL PWD 15 GM TOP SCH ×2 (08:46→20:16)
[2017-01-18] MEDS: PREPARATION H OINTMENT (HEMORRHOID) PR PRN (08:47)
[2017-01-18 14:00] VITALS: BP 133/64
--- NOTE | 2017-01-18 17:33 | IPNPDOC ---
Subjective Date Seen The patient was seen on 01/18/17. Subjective Chief Complaint/HPI The patient is a 76-year-old female admitted with a reason for visit of Brain Mass. Events since last encounter Patient is seen today with a family member present in the room. Patient complains of discomfort in R eye that is hard for her to describe; she denies it being pain, itchiness, or blurriness. Otherwise, she denies any complaints. Family is concerned that mother has not been up or working with PT, stating that the patient has been too tired to do PT. She is worried that her mother has not been really eating or drinking much. Constitutional: Denies: Chills, Fever Eyes: Reports: Other (ill-defined discomfort R eye) Skin: Denies: Rash Pulmonary: Denies: Dyspnea, Cough Cardiovascular: Denies: Chest Pain Gastrointestinal: Reports: Nausea, Abdominal Pain, Diarrhea Objective Physical Examination General Exam: Positive: Alert, No Acute Distress Chest Exam: Positive: Clear to auscultation, Diminished, Negative: Rales, Rhonchi, Wheezing Heart Exam: Positive: Rate Normal, Irregular Rhythm, Normal S1, Normal S2, Negative: Gallops, Murmurs, Rubs Abdomen Exam: Positive: Normal bowel sounds, Soft, Negative: Tenderness Assessment /Plan Problems (1) C. difficile diarrhea Status: Acute Problem Text: 01/18 WBC slightly lower than yesterday. 2 documented BMs by midafternoon. Associated with poor appetite. Nutrition consult made. I&Os. 01/17 WBC 26.7 continues to trend down (from 35.5 yesterday). Still has loose stools, 4x yesterday. Continue with Vanco and probiotics. 01/16 - WBC trending down Still with diarrhea Cont higher dose oral Vanco and Probiotics. 01/15: White blood cell count has increased today, likely secondary to C. difficile infection, continue current treatment 01/14: Patient's PCR for C. difficile positive, she was started on vancomycin 250 mg by mouth every 6 hours overnight. We will back off on dose to vancomycin 125 mg by mouth every 6 hours as recommended by infectious disease (2) Glioblastoma multiforme Status: Chronic Problem Text: 01/16: Family members understand that radiation or chemotherapy are poor options for her given her infections and weak state. They mentioned possible hospice care. 01/15: I spoke with Dr. Ramírez's on the phone today, she stated that she would be able to call the patient's family to give them an update on her status. She was provided with contact information for patient's daughter who is her healthcare proxy. I attempted to call Dr. Jordan's office but was unable to speak with him today. 01/14: Plan to discuss patient's care further tomorrow with Dr. Jordan in Dr. Ramírez's 01/13 - Per Dr. Jordan's note yesterday "family waiting for chemo and RT" - Plan needs to be clarified there had been discussion of SHIRT FOLDER shunt placement, but Dr. Jordan's notes do not indicate that he is planning this 01/08: A family visit was held yesterday, at this time family believes that they will be able to provide 24/7 care for her once she is discharged. There has been talk about patient potentially having a SHIRT FOLDER shunt placed early next week. 11/24/16 sp Stent-based frameless stereotactic left posterior temporal-parietal craniotomy with microsurgical resection of large mass, cranioplasty, and marked brain edema and swelling treated with the left lateral ventriculostomy for Left temporal-parietal GBM with brain swelling by Dr. 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 Echo 12/22 showed a-flutter LA 4 cm Rate controlled on bisoprolol Not candidate for anticoagulation until after neurosurgical procedure (6) Regurgitation of food Status: Resolved Problem Text: 01/11: no further regurgitation seen or noted by nursing staff 01/07: Patient having some regurgitation while examining patient, continue to monitor 01/04: Per nursing most of the nausea happens when the patient tells them she is nervous. She has been nauseated today, but was able to keep down lunch and a snack. I have increased her olanzapine to BId, and have recommended that she take smaller bites and eat more slowly. Her family members do admit that she tends to "ibarra down food." chronic PP NBNB vomiting p solids-favor central nausea and gastritis-induced by anorexia, chronic po steroids, abx effect 01/03 changed ondansetron OD 4 AC TID 30 mins prior to meals, continue panto 40 qAM and + Carafate 1 AC TID/QHS, last day of vanco/meropen 01/[address] (7) Hypotension Status: Resolved Response to Treatment: Stable Problem Text: 01/15: Blood pressures remain stable 01/11: BPs remain stable 01/07: Blood pressure stable, continue to monitor 01/05: Stable today with pressures around 115-120/70-80. 01/04: Stable, today 103/54 01/03: Stable, continue dexamethasone 01/02: Blood pressure stable at 108/57 today, continue dexamethasone 01/01: Blood pressure 103/62 today, lowest blood pressure over last 24 hours 90/ 50. Patient has been stable for about the last 24 hours. Continue dexamethasone. 12/31/2016: soft BP this am 94/50. 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 01/10: Mental status continues to wax and wane, she was alert, verbal and able to answer questions appropriately today. 01/07: Patient not very conversive on examination today 01/06 - Her mental status waxes and wanes - alert at times and groggy at other times. 01/04: Patient is awake, alert and able to answer questions appropriately. 01/03: Somnolent and easily arousable, verbal and able to answer questions appropriately 01/02: Patient easily arousable today, verbal and able to answer questions appropriately 01/01: Patient initially sleepy but arousable on examination. Verbal and able to answer questions. Her changes in mental status appear to be secondary to her neurological condition. 12/31: Change in responsiveness compared to yesterday. CT head and chest today. Dr. Jordan, notified and will eval patient. (9) Septic shock Status: Resolved Problem Text: 01/06 - BP variable but overall stable on Bisoprolol 01/03: Final day of vancomycin and meropenem 01/01: Continue vancomycin and meropenem until 01/03/17 12/30/2016: see ID note. IV Meropenem and Vancomycin until 01/03/17. 12/29: Patient maintaining blood pressure without levophed. She did have some lower blood pressures around 1:00 this afternoon, she will remain in ICU through tomorrow. If she maintains her blood pressure, does not require restarting of pressors, she may be able to be transferred to PCU tomorrow. If patient does drop her blood pressure, hypotension may be secondary to pituitary dysfunction, consider trial of hydrocortisone 12/28: maintaining bp with 5mcg levophed, CVP 7. Rhythm varies between sinus and afib 12/28: BP down, respiratory difficulties with fluid challenge. Back to ICU with Levophed initiated. New lactic acid ordered stat and for 4 hours. Will check CVP as another indicator of volume status. Code status still Full Code. 12/27: Resolved, patient stable in PCU off of pressors. Continue to monitor for recurrence. 12/25: Patient required initiation of norepinephrine overnight. Blood pressure stable on norepinephrine. A discussion was had with the family regarding her current situation, they were made aware of her recent deterioration. She will remain a full code at this time, family will discuss her further care amongst themselves. 12/24: Developed septic shock today, T-max overnight of 103.4, hypotension with blood pressure as low as 76/42. Patient was given a 30 mL per KG fluid bolus. Patient was transferred to ICU and intensive care was consulted. (10) Meningitis Status: Resolved Response to Treatment: Stable, Improving Discussed With: Nurse, Patient Problem Specific Plan: Consult Specialist, Monitor Clinically, Repeat Labs Problem Text: 01/03: Final day of vancomycin and meropenem 01/01: Continue Vanco and meropenem until 01/03/17 12/30/2016: see ID note. IV Meropenem and Vancomycin until 01/03/17. 12/28 continue vancomycin and meropenem 12/27: As per infectious disease patient will continue on Vanco and meropenem for a treatment duration of 2 weeks 12/25: CSF PCR negative, repeat CSF Gram stain and culture was negative, anaerobic culture negative, blood culture 1 no growth after 24 hours 12/24: Patient had drain of scalp swelling yesterday which was consistent CSF, showing 718 white blood cells, 95% PMNs, glucose of 15, total protein of 82. She is concurrently being managed by infectious disease, she will continue on vancomycin and meropenem. 12/23: Pt with Nosocomial meningitis, she is being followed by ID. She has had LP with pleocytosis and neutrophils, her T protein is elevated. her cultures have been Neg but she had received Rocephin prior to LP being performed. Vanco/ Meropenam dosing per ID. (11) Diastolic congestive heart failure Permanent Comment: 12/22/16: Echocardiogram showed hyperdynamic left ventricular systolic function, LVEF 75%, atrial flutter. Moderate elevation of pulmonary artery systolic pressure. Mild aortic valve sclerosis, mild aortic regurgitation. Negative for mitral regurgitation. Mild left atrial dilation Last Edited By: Alexus Herman PA-C on Dec 23, 2016 10:09 Status: Chronic Problem Text: 12/28: acute decompensation yesterday when attempt to use fluid bolus to support hypotension was made. she developed mild dyspnea, cxr showed vascular engorgement, moved to ICU for levophed to address hypotension. 12/23 appears compensated. 12/21 BNP 1541 c mild decompensation-held IVF and amlo 2.5 BID-repeat TTE (12) Seizure disorder Status: Chronic Problem Text: 12/25: CSF PCR negative, repeat CSF Gram stain and culture was negative, anaerobic culture negative, blood culture 1 no growth after 24 hours 12/22: CSF culture did not show any organisms, CSF PCR still pending 12/21/2016: LP completed a 12/20/2016. Patient has some soreness in the back around puncture site. CSF culture pending. 2 focus 2 brain tumor resection 12/[address] head c stable STS/fluid collection seen on 12/18 CT-case dw Dr. Jordan who agrees favors fluid is 2 to necrotic tissue, but given fever/MS change, agrees c LP (as did Dr. Castillo)-case dw c Dr. Arturo Foster who wanted clearance from [facility] 12/19 Dr. Herrera increased leve to 1000 BID given sz episode-partially 2 UTI/hypoNa /? fluid collection 12/19 EEG This EEG in awake, drowsy states, stage 1 and 2 sleep is abnormal due to presence of left temporal intermittent rhythmic delta activity/temporal intermittent rhythmic delta activity (TIRDA) with separate to left central head region consistent with focal cortical structural or functional abnormality with epileptic potential. No clinical or electrographic seizures were recorded. Clinical correlation is recommended. DD: KERRI HERRERA MD 12/20/16 0658 12/18 CT head The patient is status post resection of a left temporal lobe tumor. There is postoperative change in the posterior left temporal lobe with decreased mass effect compared to the previous study. There is increased soft tissue swelling and fluid overlying the craniotomy site. (13) Anemia Status: Chronic Problem Specific Plan: Monitor Clinically Problem Text: 01/15: Hemoglobin has risen to 11.1, continue to monitor 01/11: Hemoglobin stable at 9.1, continue to monitor 01/08: Hemoglobin stable at 9.8 01/05: Hemoglobin at 9.5 today from 10.6 yesterday. Continue to monitor daily. 01/01: Hemoglobin stable at 9.8 12/29: Hemoglobin stable at 10.8 12/27: Hemoglobin stable at 10.3 12/25: Hemoglobin stable at 10.5 12/23 - No labs ordered, will obtain. Hgb had trended from 10.8 12/21 to 9.7 12/21/2016: Hemoglobin improving today, 10.8. caution on chronic po steroid (on panto 40 QD for px) 12/20 hgb down to 9.4 (10.2, 11.2)-check HO baseline hgb 12s (12/09 wt 69, 12/20 79) On Supplemental B12 and Iron. 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 Patient was set up for biopsy of the nodule to rule out primary lesion. The nodule could not be biopsied by interventional radiology secondary to size. Dr. Morales noted that the lesion was unlikely a primary metastatic lesion. Patient proceeded to have a biopsy of her brain mass which resulted in glioblastoma. Lung nodule will need to be followed as outpatient. 11/24/2016: I reconfirmed this assessment with Dr. 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 Proceed with brain mass bx and pathology prior to lung nodule eval. 11/17/2016: Pulmonology, informal consult, advised against bronchoscopy. Recommends interventional to see if can get to nodule. Dr. Jordan is requesting that we strongly consider working up this lung nodule while she is in the hospital. He has a strong clinical suspicion that the brain lesion is metastatic. Additionally if she has a primary lung cancer it may change his recommendation to do an excisional bx of the brain lesion which almost assuredly leave her with some weakness and speech deficits. Tomorrow we should contact IR and/or Pulm to see whether CT guided bx or navigational bronchoscopy with bx is the best way to get a sample of this lesion. ------ CT Chest: 14 mm nodule in the anterior segment of the right lower lobe, not present on the comparison study. (17) Brain compression Status: Acute Response to Treatment: Controlled Problem Specific Plan: Monitor Clinically Problem Text: Dr. Jordan, brain edema and swelling treated with the left lateral ventriculostomy on 11/24/16. (18) HTN (hypertension) Status: Chronic Problem Specific Plan: Monitor Clinically Problem Text: BP is well controlled today. Continue current regimen of Bisoprolol (19) CAD (coronary artery disease) Status: Chronic Problem Specific Plan: Monitor Clinically Problem Text: No active symptoms (20) COPD (chronic obstructive pulmonary disease) Status: Chronic Problem Specific Plan: Monitor Clinically Problem Text: Stable Plan/VTE VTE Prophylaxis Ordered?: Yes (TEDs and SCDs) VTE Exclusion Pharmacological: Bleeding Risk (intracranial procedure) Plan Therapy: PT, OT Anticipated Discharge: Home With Services (based on therapy's recommendation) VS, I&O, 24H, Fishbone Vital Signs/I&O Vital Signs Date Time Temp Pulse Resp B/P (MAP) Pulse Ox O2 Delivery O2 Flow Rate FiO2 01/18/17 14:00 98.3 70 19 133/64 (87) 98 Nasal Cannula 2.0 I&O- Last 24 Hours up to 6 AM 01/19/17 06:00 Intake Total 220 ml Balance 220 ml Laboratory Data 24H LABS Laboratory Tests 2 01/18/17 06:15: Immature Granulocyte % (Auto) , White Blood Count 25.1H, Red Blood Count 4.00, Hemoglobin 10.5L, Hematocrit 32.9L, Mean Corpuscular Volume 82.3, Mean Corpuscular Hemoglobin 26.3L, Mean Corpuscular Hemoglobin Concent 31.9L, Red Cell Distribution Width 15.4H, Platelet Count 426, Monocytes # (Auto) , Nucleated Red Blood Cells % (auto) 0.1H, Neutrophils 85H, Band Neutrophils 1, Lymphocytes (Manual) 5L, Monocytes (Manual) 6, Metamyelocytes 2H, Myelocytes 1H , Toxic Vacuolation 1+, Platelet Estimate INCREASED, Polychromasia 1+, Basophilic Stippling 1+, Anisocytosis 1+ CBC/BMP Laboratory Tests 01/18/17 06:15 Red Blood Count 4.00, Mean Corpuscular Volume 82.3, Mean Corpuscular Hemoglobin 26.3 L, Mean Corpuscular Hemoglobin Concent 31.9 L, Red Cell Distribution Width 15.4 H, Monocytes # (Auto) Microbiology Microbiology 01/12/17 Blood Culture - Final, Complete NO GROWTH AFTER 5 DAYS 01/12/17 Blood Culture - Final, Complete NO GROWTH AFTER 5 DAYS 01/09/17 Gram Stain - Final, Complete 01/09/17 CSF Culture - Final, Complete 01/13/17 Clostridium difficile (PCR) - Final, Complete 01/12/17 Respiratory Virus Panel (PCR) (HECTOR) - Final, Complete 01/12/17 Catheter Tip Culture - Final, Complete AMI POOLE DO Jan 18, 2017 17:33
[2017-01-18] MEDS: ROSUVASTATIN 10 MG TAB (CRESTOR) PO SCH (20:16)
[2017-01-18 22:00] VITALS: BP 134/76
[2017-01-19] MEDS: ACETAMINOPHEN TAB 650MG DOSE (2X325MG) PO PRN (00:54)
[2017-01-19] MEDS: ALBUTEROL SULFATE 2.5 MG/0.5 ML INH NEB SOLN NEB SCH ×4 (02:00→19:21)
[2017-01-19] MEDS: VANCOMYCIN ORAL SOL 250MG/5ML ORAL SYRINGE PO SCH ×2 (05:23→12:14)
[2017-01-19 06:00] VITALS: BP 129/75
[2017-01-19 06:22] LABS: MEAN CORPUSCULAR HGB CONC 32.1 g/dl (32.0-36.5); MEAN CORPUSCULAR VOLUME 81.3 fl (80.0-96.0); PLATELET COUNT, AUTOMATED 372 10^3/uL (150-450); RED CELL DISTRIBUTION WIDTH 15.5 % (11.5-14.5); WHITE BLOOD COUNT 26.4 10^3/uL (4.0-10.0)
[2017-01-19 06:38] LABS: POS COUNT POS FLAG; POSITIVE MORPH POS FLAG
[2017-01-19 06:39] LABS: ADD MANUAL DIFFER YES; ALBUMIN 1.7 GM/DL (3.2-5.2); ALBUMIN/GLOBULIN RATIO 0.53 (1.00-1.93); ALKALINE PHOSPHATASE 74 U/L (45-117); ALT/SGPT 14 U/L (12-78); ANION GAP 8 MEQ/L (8-16); AST/SGOT 11 U/L (7-37); BILIRUBIN,TOTAL 0.2 MG/DL (0.2-1.0); BLOOD UREA NITROGEN 26 MG/DL (7-18); CARBON DIOXIDE LEVEL 27 MEQ/L (21-32); CHLORIDE LEVEL 107 MEQ/L (98-107); CREATININE FOR GFR 0.44 MG/DL (0.55-1.02); DIFF SLIDE NUMBER 1; GLOMERULAR FILTRATION RATE > 60.0 (>39); GLUCOSE, FASTING 106 MG/DL (83-110); POTASSIUM SERUM 3.7 MEQ/L (3.5-5.1); SODIUM LEVEL 142 MEQ/L (136-145); TOTAL PROTEIN 4.9 GM/DL (6.4-8.2)
[2017-01-19 06:50] LABS: BANDS 5 % (< 11); PLATELET CLUMPS MODERATE AMT
[2017-01-19 06:51] LABS: ANISOCYTOSIS 1+; POIKILOCYTOSIS 1+
[2017-01-19] MEDS: BUDESONIDE 0.5 MG/2 ML INHALATION SUSPENSION INH SCH ×2 (07:14→19:21)
[2017-01-19] MEDS: OLANZapine 2.5MG TABLET PO SCH ×2 (08:18→20:10)
[2017-01-19] MEDS: LACTOBACILLUS ACIDOPHILUS CAP (BACID) PO SCH ×2 (08:19→20:10)
[2017-01-19] MEDS: CALCIUM/VITAMIN D 500 MG TAB PO SCH ×2 (08:19→20:10)
[2017-01-19] MEDS: levETIRAcetam 250MG TABLET (KEPPRA) PO SCH ×2 (08:20→20:10)
[2017-01-19] MEDS: ONDANSETRON 4 MG ORAL DISINTEGRATING TAB (S0181) PO SCH ×3 (08:20→17:08)
[2017-01-19] MEDS: SUCRALFATE SUSP 1GM/10ML UD PO SCH ×4 (08:21→20:11)
[2017-01-19] MEDS: LORATADINE 10 MG TAB PO SCH (08:21)
[2017-01-19] MEDS: CYANOCOBALAMIN 500 MCG TAB PO SCH (08:21)
[2017-01-19] MEDS: NYSTATIN 100,000 UNITS/GM TOPICAL PWD 15 GM TOP SCH ×2 (08:22→20:11)
--- NOTE | 2017-01-19 09:46 | IPNPDOC ---
Subjective Date Seen The patient was seen on 01/19/17. Subjective Chief Complaint/HPI The patient is a 76-year-old female admitted with a reason for visit of Brain Mass. Events since last encounter Pt this morning without new concerns. Nursing reports that she has had a slight cough intermittently today. General: Denies: Fatigue Constitutional: Denies: Chills, Fever Pulmonary: Reports: Cough, Denies: Dyspnea Cardiovascular: Denies: Chest Pain, Palpitations Gastrointestinal: Reports: Nausea, Denies: Vomiting Neurological: Reports: Weakness Psych: Reports: Memory Issues Objective Physical Examination General Exam: Positive: Alert, No Acute Distress Chest Exam: Positive: Clear to auscultation, Diminished, Negative: Rales, Rhonchi, Wheezing Heart Exam: Positive: Rate Normal, Irregular Rhythm, Normal S1, Normal S2, Negative: Gallops, Murmurs, Rubs Abdomen Exam: Positive: Normal bowel sounds, Soft, Negative: Tenderness Extremity Exam: Negative: Edema Assessment /Plan Problems (1) C. difficile diarrhea Status: Acute Problem Text: 01/19 - B[place] [address], Vanco 250 Q6h 01/18 WBC slightly lower than yesterday. 2 documented BMs by midafternoon. Associated with poor appetite. Nutrition consult made. I&Os. 01/17 WBC 26.7 continues to trend down (from 35.5 yesterday). Still has loose stools, 4x yesterday. Continue with Vanco and probiotics. 01/16 - WBC trending down Still with diarrhea Cont higher dose oral Vanco and Probiotics. 01/15: White blood cell count has increased today, likely secondary to C. difficile infection, continue current treatment 01/14: Patient's PCR for C. difficile positive, she was started on vancomycin 250 mg by mouth every 6 hours overnight. We will back off on dose to vancomycin 125 mg by mouth every 6 hours as recommended by infectious disease (2) Glioblastoma multiforme Status: Chronic Problem Text: 01/19: Reviewed chart, will need to determine NS plans to include CONE FORMER shunt, and Onc recommendations regarding further treatment options then need to plan for Family meeting to discuss discharge planning and end of life care. Address with attending. 01/16: Family members understand that radiation or chemotherapy are poor options for her given her infections and weak state. They mentioned possible hospice care. 01/15: I spoke with Dr. Ramírez's on the phone today, she stated that she would be able to call the patient's family to give them an update on her status. She was provided with contact information for patient's daughter who is her healthcare proxy. I attempted to call Dr. Jordan's office but was unable to speak with him today. 01/14: Plan to discuss patient's care further tomorrow with Dr. Jordan in Dr. Ramírez's 01/13 - Per Dr. Jordan's note yesterday "family waiting for chemo and RT" - Plan needs to be clarified there had been discussion of CONE FORMER shunt placement, but Dr. Jordan's notes do not indicate that he is planning this 01/08: A family visit was held yesterday, at this time family believes that they will be able to provide 24/7 care for her once she is discharged. There has been talk about patient potentially having a CONE FORMER shunt placed early next week. 11/24/16 sp Stent-based frameless stereotactic left posterior temporal-parietal craniotomy with microsurgical resection of large mass, cranioplasty, and marked brain edema and swelling treated with the left lateral ventriculostomy for Left temporal-parietal GBM with brain swelling by Dr. 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 Echo 12/22 showed a-flutter LA 4 cm Rate controlled on bisoprolol Not candidate for anticoagulation until after neurosurgical procedure (6) Regurgitation of food Status: Resolved Problem Text: 01/11: no further regurgitation seen or noted by nursing staff 01/07: Patient having some regurgitation while examining patient, continue to monitor 01/04: Per nursing most of the nausea happens when the patient tells them she is nervous. She has been nauseated today, but was able to keep down lunch and a snack. I have increased her olanzapine to BId, and have recommended that she take smaller bites and eat more slowly. Her family members do admit that she tends to "ibarra down food." chronic PP NBNB vomiting p solids-favor central nausea and gastritis-induced by anorexia, chronic po steroids, abx effect 01/03 changed ondansetron OD 4 AC TID 30 mins prior to meals, continue panto 40 qAM and + Carafate 1 AC TID/QHS, last day of vanco/meropen 01/[address] (7) Hypotension Status: Resolved Response to Treatment: Stable Problem Text: 01/15: Blood pressures remain stable 01/11: BPs remain stable 01/07: Blood pressure stable, continue to monitor 01/05: Stable today with pressures around 115-120/70-80. 01/04: Stable, today 103/54 01/03: Stable, continue dexamethasone 01/02: Blood pressure stable at 108/57 today, continue dexamethasone 01/01: Blood pressure 103/62 today, lowest blood pressure over last 24 hours 90/ 50. Patient has been stable for about the last 24 hours. Continue dexamethasone. 12/31/2016: soft BP this am 94/50. 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 01/10: Mental status continues to wax and wane, she was alert, verbal and able to answer questions appropriately today. 01/07: Patient not very conversive on examination today 01/06 - Her mental status waxes and wanes - alert at times and groggy at other times. 01/04: Patient is awake, alert and able to answer questions appropriately. 01/03: Somnolent and easily arousable, verbal and able to answer questions appropriately 01/02: Patient easily arousable today, verbal and able to answer questions appropriately 01/01: Patient initially sleepy but arousable on examination. Verbal and able to answer questions. Her changes in mental status appear to be secondary to her neurological condition. 12/31: Change in responsiveness compared to yesterday. CT head and chest today. Dr. Jordan, notified and will eval patient. (9) Septic shock Status: Resolved Problem Text: 01/06 - BP variable but overall stable on Bisoprolol 01/03: Final day of vancomycin and meropenem 01/01: Continue vancomycin and meropenem until 01/03/17 12/30/2016: see ID note. IV Meropenem and Vancomycin until 01/03/17. 12/29: Patient maintaining blood pressure without levophed. She did have some lower blood pressures around 1:00 this afternoon, she will remain in ICU through tomorrow. If she maintains her blood pressure, does not require restarting of pressors, she may be able to be transferred to PCU tomorrow. If patient does drop her blood pressure, hypotension may be secondary to pituitary dysfunction, consider trial of hydrocortisone 12/28: maintaining bp with 5mcg levophed, CVP 7. Rhythm varies between sinus and afib 12/28: BP down, respiratory difficulties with fluid challenge. Back to ICU with Levophed initiated. New lactic acid ordered stat and for 4 hours. Will check CVP as another indicator of volume status. Code status still Full Code. 12/27: Resolved, patient stable in PCU off of pressors. Continue to monitor for recurrence. 12/25: Patient required initiation of norepinephrine overnight. Blood pressure stable on norepinephrine. A discussion was had with the family regarding her current situation, they were made aware of her recent deterioration. She will remain a full code at this time, family will discuss her further care amongst themselves. 12/24: Developed septic shock today, T-max overnight of 103.4, hypotension with blood pressure as low as 76/42. Patient was given a 30 mL per KG fluid bolus. Patient was transferred to ICU and intensive care was consulted. (10) Meningitis Status: Resolved Response to Treatment: Stable, Improving Discussed With: Nurse, Patient Problem Specific Plan: Consult Specialist, Monitor Clinically, Repeat Labs Problem Text: 01/03: Final day of vancomycin and meropenem 01/01: Continue Vanco and meropenem until 01/03/17 12/30/2016: see ID note. IV Meropenem and Vancomycin until 01/03/17. 12/28 continue vancomycin and meropenem 12/27: As per infectious disease patient will continue on Vanco and meropenem for a treatment duration of 2 weeks 12/25: CSF PCR negative, repeat CSF Gram stain and culture was negative, anaerobic culture negative, blood culture 1 no growth after 24 hours 12/24: Patient had drain of scalp swelling yesterday which was consistent CSF, showing 718 white blood cells, 95% PMNs, glucose of 15, total protein of 82. She is concurrently being managed by infectious disease, she will continue on vancomycin and meropenem. 12/23: Pt with Nosocomial meningitis, she is being followed by ID. She has had LP with pleocytosis and neutrophils, her T protein is elevated. her cultures have been Neg but she had received Rocephin prior to LP being performed. Vanco/ Meropenam dosing per ID. (11) Diastolic congestive heart failure Permanent Comment: 12/22/16: Echocardiogram showed hyperdynamic left ventricular systolic function, LVEF 75%, atrial flutter. Moderate elevation of pulmonary artery systolic pressure. Mild aortic valve sclerosis, mild aortic regurgitation. Negative for mitral regurgitation. Mild left atrial dilation Last Edited By: Aydee Herman PA-C on Dec 23, 2016 10:09 Status: Chronic Problem Text: 12/28: acute decompensation yesterday when attempt to use fluid bolus to support hypotension was made. she developed mild dyspnea, cxr showed vascular engorgement, moved to ICU for levophed to address hypotension. 12/23 appears compensated. 12/21 BNP 1541 c mild decompensation-held IVF and amlo 2.5 BID-repeat TTE (12) Seizure disorder Status: Chronic Problem Text: 12/25: CSF PCR negative, repeat CSF Gram stain and culture was negative, anaerobic culture negative, blood culture 1 no growth after 24 hours 12/22: CSF culture did not show any organisms, CSF PCR still pending 12/21/2016: LP completed a 12/20/2016. Patient has some soreness in the back around puncture site. CSF culture pending. 2 focus 2 brain tumor resection 12/[address] head c stable STS/fluid collection seen on 12/18 CT-case dw Dr. Jordan who agrees favors fluid is 2 to necrotic tissue, but given fever/MS change, agrees c LP (as did Dr. Castillo)-case dw c Dr. Arturo Foster who wanted clearance from [facility] 12/19 Dr. Herrera increased leve to 1000 BID given sz episode-partially 2 UTI/hypoNa /? fluid collection 12/19 EEG This EEG in awake, drowsy states, stage 1 and 2 sleep is abnormal due to presence of left temporal intermittent rhythmic delta activity/temporal intermittent rhythmic delta activity (TIRDA) with separate to left central head region consistent with focal cortical structural or functional abnormality with epileptic potential. No clinical or electrographic seizures were recorded. Clinical correlation is recommended. DD: KERRI HERRERA MD 12/20/16 0658 12/18 CT head The patient is status post resection of a left temporal lobe tumor. There is postoperative change in the posterior left temporal lobe with decreased mass effect compared to the previous study. There is increased soft tissue swelling and fluid overlying the craniotomy site. (13) Anemia Status: Chronic Problem Specific Plan: Monitor Clinically Problem Text: 01/15: Hemoglobin has risen to 11.1, continue to monitor 01/11: Hemoglobin stable at 9.1, continue to monitor 01/08: Hemoglobin stable at 9.8 01/05: Hemoglobin at 9.5 today from 10.6 yesterday. Continue to monitor daily. 01/01: Hemoglobin stable at 9.8 12/29: Hemoglobin stable at 10.8 12/27: Hemoglobin stable at 10.3 12/25: Hemoglobin stable at 10.5 12/23 - No labs ordered, will obtain. Hgb had trended from 10.8 12/21 to 9.7 12/21/2016: Hemoglobin improving today, 10.8. caution on chronic po steroid (on panto 40 QD for px) 12/20 hgb down to 9.4 (10.2, 11.2)-check HO baseline hgb 12s (12/09 wt 69, 12/20 79) On Supplemental B12 and Iron. 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 Patient was set up for biopsy of the nodule to rule out primary lesion. The nodule could not be biopsied by interventional radiology secondary to size. Dr. Morales noted that the lesion was unlikely a primary metastatic lesion. Patient proceeded to have a biopsy of her brain mass which resulted in glioblastoma. Lung nodule will need to be followed as outpatient. 11/24/2016: I reconfirmed this assessment with Dr. 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 (side stitcher) 11/19/16: Per Interventional Rad: most likely not a primary. Proceed with brain mass bx and pathology prior to lung nodule eval. 11/17/2016: Pulmonology, informal consult, advised against bronchoscopy. Recommends interventional to see if can get to nodule. Dr. Jordan is requesting that we strongly consider working up this lung nodule while she is in the hospital. He has a strong clinical suspicion that the brain lesion is metastatic. Additionally if she has a primary lung cancer it may change his recommendation to do an excisional bx of the brain lesion which almost assuredly leave her with some weakness and speech deficits. Tomorrow we should contact IR and/or Pulm to see whether CT guided bx or navigational bronchoscopy with bx is the best way to get a sample of this lesion. ------ CT Chest: 14 mm nodule in the anterior segment of the right lower lobe, not present on the comparison study. (17) Brain compression Status: Acute Response to Treatment: Controlled Problem Specific Plan: Monitor Clinically Problem Text: Dr. Jordan, brain edema and swelling treated with the left lateral ventriculostomy on 11/24/16. (18) HTN (hypertension) Status: Chronic Problem Specific Plan: Monitor Clinically Problem Text: BP is well controlled today. Continue current regimen of Bisoprolol (19) CAD (coronary artery disease) Status: Chronic Problem Specific Plan: Monitor Clinically Problem Text: No active symptoms (20) COPD (chronic obstructive pulmonary disease) Status: Chronic Problem Specific Plan: Monitor Clinically Problem Text: Stable Plan/VTE VTE Prophylaxis Ordered?: Yes (TEDs and SCDs) VTE Exclusion Pharmacological: Bleeding Risk (intracranial procedure) Plan Therapy: PT, OT Anticipated Discharge: Home With Services (based on therapy's recommendation) VS, I&O, 24H, Fishbone Vital Signs/I&O Vital Signs Date Time Temp Pulse Resp B/P (MAP) Pulse Ox O2 Delivery O2 Flow Rate FiO2 01/19/17 06:00 97.0 85 18 129/75 (93) 97 Nasal Cannula 2.0 Laboratory Data 24H LABS Laboratory Tests 2 01/19/17 05:58: Immature Granulocyte % (Auto) , Nucleated Red Blood Cells % (auto) 0.0, Neutrophils 78H, Band Neutrophils 5, Lymphocytes (Manual) 6L, Monocytes (Manual ) 8, Metamyelocytes 1H, Myelocytes 2H, Platelet Estimate NORMAL, Clumped Platelets MODERATE AMT, Poikilocytosis 1+, Anisocytosis 1+, Anion Gap 8, Glomerular Filtration Rate > 60.0, Blood Urea Nitrogen 26H, Creatinine 0.44L, Sodium Level 142, Potassium Level 3.7, Chloride Level 107, Carbon Dioxide Level 27, Calcium Level 10.0, Aspartate Amino Transf (AST/SGOT) 11, Alanine Aminotransferase (ALT/SGPT) 14, Alkaline Phosphatase 74, Total Bilirubin 0.2, Total Protein 4.9L, Albumin 1.7L, Albumin/Globulin Ratio 0.53L CBC/BMP Laboratory Tests 01/19/17 05:58 Red Blood Count 3.84 L, Mean Corpuscular Volume 81.3, Mean Corpuscular Hemoglobin 26.0 L, Mean Corpuscular Hemoglobin Concent 32.1, Red Cell Distribution Width 15.5 H, Calcium Level 10.0, Aspartate Amino Transf (AST/SGOT ) 11, Alanine Aminotransferase (ALT/SGPT) 14, Alkaline Phosphatase 74, Total Bilirubin 0.2, Total Protein 4.9 L, Albumin 1.7 L Microbiology Microbiology 01/12/17 Blood Culture - Final, Complete NO GROWTH AFTER 5 DAYS 01/12/17 Blood Culture - Final, Complete NO GROWTH AFTER 5 DAYS 01/09/17 Gram Stain - Final, Complete 01/09/17 CSF Culture - Final, Complete 01/13/17 Clostridium difficile (PCR) - Final, Complete 01/12/17 Respiratory Virus Panel (PCR) ([facility]) - Final, Complete 01/12/17 Catheter Tip Culture - Final, Complete AYDEE HERMAN PA-C Jan 19, 2017 09:46
[2017-01-19] MEDS: ACETAMINOPHEN 500 MG TAB PO PRN (13:14)
[2017-01-19 14:00] VITALS: BP 132/78
--- NOTE | 2017-01-19 16:43 | IPN ---
DATE: 01/19/2017 Savanna is seen on [facility]. This note supplements Alexus Herman's note. I spoke to Savanna's daughter, who is her healthcare decision-maker, her name is Elda. We discussed the patient's deteriorating clinical course, poor prognosis, and what their wishes are for ongoing care. They want to the patient to be discharged home to hospice. I think this is a compassionate and appropriate decision. At this point she is a "full code," so tomorrow I plan to meet with the family around lunchtime. We will get a Medical Orders for Life Sustaining Treatment (MOLST) form taken care of. I have put a consult in for hospice and asked patient and family services (PFS) to help facilitate her transfer home for end of life care, hopefully being discharged sometime this week.
[2017-01-19] MEDS: FIDAXOMICIN 200 MG TAB (DIFICID) PO SCH (20:10)
[2017-01-19] MEDS: ROSUVASTATIN 10 MG TAB (CRESTOR) PO SCH (20:11)
[2017-01-19 22:00] VITALS: BP 142/73
--- NOTE | 2017-01-19 23:42 | IPN ---
DATE: 01/19/2017 Mrs. Santos seems to be more lethargic today, although she responds appropriately to questions. She still has diarrhea in spite of 5 days of oral vancomycin and her white count remains elevated to 26,000. She has no abdominal pain. No nausea or vomiting. Her appetite is poor. She will be going home on hospice. She has four family members who are willing to help. LABORATORY DATA: White count is 26.4, hemoglobin 10, hematocrit 31.2, platelets 372, 78% neutrophils, 5% lymphocytes, 6% monocytes. Sodium 142, potassium 3.7, chloride 107, bicarbonate 27, BUN 26, creatinine 0.4, glucose 106. Heart: Normal S1, S2, no murmurs, rubs or gallop. Abdomen is soft, nontender. No hepatosplenomegaly. Extremities: No edema. Temperature is 98.7, pulse 88, respirations 20, blood pressure 132/78, oxygen saturation 96% on 2 liters nasal cannula. IMPRESSION: 1. Clostridium difficile colitis. The patient had five bowel movements yesterday with persistent leukocytosis, so will switch her to fidaxomicin 200 mg by mouth twice a day, it decreases risk of recurrence and she had slow response to oral vancomycin. Hopefully this will be covered by insurance. If it is not covered, she could be switched back to vancomycin on discharge. 2. High grade glioblastoma. The patient will be hopefully going home on hospice as she has deteriorated drastically in the past month. PLAN: Infectious disease signing off. Continue fidaxomicin for 10 days. MTDD
[2017-01-20] MEDS: ALBUTEROL SULFATE 2.5 MG/0.5 ML INH NEB SOLN NEB SCH ×4 (01:06→19:40)
[2017-01-20 05:43] LABS: MEAN CORPUSCULAR HEMOGLOBIN 26.3 pg (27.0-33.0); MEAN CORPUSCULAR HGB CONC 32.8 g/dl (32.0-36.5); MEAN CORPUSCULAR VOLUME 80.2 fl (80.0-96.0); PLATELET COUNT, AUTOMATED 286 10^3/uL (150-450); POS COUNT POS FLAG; POSITIVE MORPH POS FLAG; RED CELL DISTRIBUTION WIDTH 15.3 % (11.5-14.5); WHITE BLOOD COUNT 25.1 10^3/uL (4.0-10.0)
[2017-01-20 05:44] LABS: ADD MANUAL DIFFER YES; DIFF SLIDE NUMBER 4
[2017-01-20 06:00] VITALS: BP 124/73
[2017-01-20 06:05] LABS: ALBUMIN 1.6 GM/DL (3.2-5.2); ALKALINE PHOSPHATASE 74 U/L (45-117); ALT/SGPT 16 U/L (12-78); ANION GAP 10 MEQ/L (8-16); AST/SGOT 16 U/L (7-37); BILIRUBIN,TOTAL 0.3 MG/DL (0.2-1.0); BLOOD UREA NITROGEN 26 MG/DL (7-18); CALCIUM LEVEL 10.1 MG/DL (8.8-10.2); CARBON DIOXIDE LEVEL 26 MEQ/L (21-32); CHLORIDE LEVEL 104 MEQ/L (98-107); CREATININE FOR GFR 0.41 MG/DL (0.55-1.02); GLOMERULAR FILTRATION RATE > 60.0 (>39); GLUCOSE, FASTING 91 MG/DL (83-110); POTASSIUM SERUM 3.7 MEQ/L (3.5-5.1); SODIUM LEVEL 140 MEQ/L (136-145); TOTAL PROTEIN 4.8 GM/DL (6.4-8.2)
[2017-01-20 06:10] LABS: BANDS 1 % (< 11); TOXIC VACUOLATION 1+
[2017-01-20 06:13] LABS: ANISOCYTOSIS 1+
[2017-01-20] MEDS: BUDESONIDE 0.5 MG/2 ML INHALATION SUSPENSION INH SCH ×2 (07:04→19:40)
[2017-01-20] MEDS: CYANOCOBALAMIN 500 MCG TAB PO SCH (10:07)
[2017-01-20] MEDS: levETIRAcetam 250MG TABLET (KEPPRA) PO SCH ×2 (10:08→20:25)
[2017-01-20] MEDS: OLANZapine 2.5MG TABLET PO SCH ×2 (10:09→20:26)
[2017-01-20] MEDS: LACTOBACILLUS ACIDOPHILUS CAP (BACID) PO SCH ×2 (10:09→20:26)
[2017-01-20] MEDS: FIDAXOMICIN 200 MG TAB (DIFICID) PO SCH ×2 (10:09→20:25)
[2017-01-20] MEDS: ONDANSETRON 4 MG ORAL DISINTEGRATING TAB (S0181) PO SCH ×3 (10:09→17:05)
--- NOTE | 2017-01-20 10:09 | IPNPDOC ---
Subjective Date Seen The patient was seen on 01/20/17. Subjective Chief Complaint/HPI The patient is a 76-year-old female admitted with a reason for visit of Brain Mass. Events since last encounter Pt without new concerns this morning. She cont to have loose stools. General: Denies: Fatigue Constitutional: Denies: Fever Pulmonary: Denies: Dyspnea Cardiovascular: Denies: Chest Pain, Palpitations Gastrointestinal: Reports: Diarrhea, Denies: Nausea, Vomiting Neurological: Denies: Weakness Psych: Reports: Mood Normal Objective Physical Examination General Exam: Positive: Alert, No Acute Distress ENT Exam: Positive: Mucous membr. moist/pink Chest Exam: Positive: Clear to auscultation, Diminished, Negative: Rales, Rhonchi, Wheezing Heart Exam: Positive: Rate Normal, Irregular Rhythm, Normal S1, Normal S2, Negative: Gallops, Murmurs, Rubs Abdomen Exam: Positive: Normal bowel sounds, Soft, Negative: Tenderness Extremity Exam: Negative: Edema Psych Exam: Negative: Oriented x 3 Assessment /Plan Problems (1) C. difficile diarrhea Status: Acute Problem Text: 01/20 - regimen changed yesterday per Dr Castillo. [place] [address]. She has 2 BMs yesterday. 01/19 - 5 BMs [place]. [place] [address], Vanco 250 Q6h 01/18 WBC slightly lower than yesterday. 2 documented BMs by midafternoon. Associated with poor appetite. Nutrition consult made. I&Os. 01/17 WBC 26.7 continues to trend down (from 35.5 yesterday). Still has loose stools, 4x yesterday. Continue with Vanco and probiotics. 01/16 - WBC trending down Still with diarrhea Cont higher dose oral Vanco and Probiotics. 01/15: White blood cell count has increased today, likely secondary to C. difficile infection, continue current treatment 01/14: Patient's PCR for C. difficile positive, she was started on vancomycin 250 mg by mouth every 6 hours overnight. We will back off on dose to vancomycin 125 mg by mouth every 6 hours as recommended by infectious disease (2) Glioblastoma multiforme Status: Chronic Problem Text: 01/20 - Plans for family meeting today with Dr Gregorio. 01/19: Reviewed chart, will need to determine NS plans to include SENIOR TECHNOLOGIST shunt, and Onc recommendations regarding further treatment options then need to plan for Family meeting to discuss discharge planning and end of life care. Address with attending. 01/16: Family members understand that radiation or chemotherapy are poor options for her given her infections and weak state. They mentioned possible hospice care. 01/15: I spoke with Dr. Ramírez's on the phone today, she stated that she would be able to call the patient's family to give them an update on her status. She was provided with contact information for patient's daughter who is her healthcare proxy. I attempted to call Dr. Jordan's office but was unable to speak with him today. 01/14: Plan to discuss patient's care further tomorrow with Dr. Jordan in Dr. Ramírez's 01/13 - Per Dr. Jordan's note yesterday "family waiting for chemo and RT" - Plan needs to be clarified there had been discussion of SENIOR TECHNOLOGIST shunt placement, but Dr. Jordan's notes do not indicate that he is planning this 01/08: A family visit was held yesterday, at this time family believes that they will be able to provide 01/09 care for her once she is discharged. There has been talk about patient potentially having a SENIOR TECHNOLOGIST shunt placed early next week. 11/24/16 sp Stent-based frameless stereotactic left posterior temporal-parietal craniotomy with microsurgical resection of large mass, cranioplasty, and marked brain edema and swelling treated with the left lateral ventriculostomy for Left temporal-parietal GBM with brain swelling by Dr. 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 Echo 12/22 showed a-flutter LA 4 cm Rate controlled on bisoprolol Not candidate for anticoagulation until after neurosurgical procedure (6) Regurgitation of food Status: Resolved Problem Text: 01/11: no further regurgitation seen or noted by nursing staff 01/07: Patient having some regurgitation while examining patient, continue to monitor 01/04: Per nursing most of the nausea happens when the patient tells them she is nervous. She has been nauseated today, but was able to keep down lunch and a snack. I have increased her olanzapine to BId, and have recommended that she take smaller bites and eat more slowly. Her family members do admit that she tends to "ibarra down food." chronic PP NBNB vomiting p solids-favor central nausea and gastritis-induced by anorexia, chronic po steroids, abx effect 01/03 changed ondansetron OD 4 AC TID 30 mins prior to meals, continue panto 40 qAM and + Carafate 1 AC TID/QHS, last day of vanco/meropen 01/[address] (7) Hypotension Status: Resolved Response to Treatment: Stable Problem Text: 01/15: Blood pressures remain stable 01/11: BPs remain stable 01/07: Blood pressure stable, continue to monitor 01/05: Stable today with pressures around 115-120/70-80. 01/04: Stable, today 103/54 01/03: Stable, continue dexamethasone 01/02: Blood pressure stable at 108/57 today, continue dexamethasone 01/01: Blood pressure 103/62 today, lowest blood pressure over last 24 hours 90/ 50. Patient has been stable for about the last 24 hours. Continue dexamethasone. 12/31/2016: soft BP this am 94/50. 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 01/10: Mental status continues to wax and wane, she was alert, verbal and able to answer questions appropriately today. 01/07: Patient not very conversive on examination today 01/06 - Her mental status waxes and wanes - alert at times and groggy at other times. 01/04: Patient is awake, alert and able to answer questions appropriately. 01/03: Somnolent and easily arousable, verbal and able to answer questions appropriately 01/02: Patient easily arousable today, verbal and able to answer questions appropriately 01/01: Patient initially sleepy but arousable on examination. Verbal and able to answer questions. Her changes in mental status appear to be secondary to her neurological condition. 12/31: Change in responsiveness compared to yesterday. CT head and chest today. Dr. Jordan, notified and will eval patient. (9) Septic shock Status: Resolved Problem Text: 01/06 - BP variable but overall stable on Bisoprolol 01/03: Final day of vancomycin and meropenem 01/01: Continue vancomycin and meropenem until 01/03/17 12/30/2016: see ID note. IV Meropenem and Vancomycin until 01/03/17. 12/29: Patient maintaining blood pressure without levophed. She did have some lower blood pressures around 1:00 this afternoon, she will remain in ICU through tomorrow. If she maintains her blood pressure, does not require restarting of pressors, she may be able to be transferred to PCU tomorrow. If patient does drop her blood pressure, hypotension may be secondary to pituitary dysfunction, consider trial of hydrocortisone 12/28: maintaining bp with 5mcg levophed, CVP 7. Rhythm varies between sinus and afib 12/28: BP down, respiratory difficulties with fluid challenge. Back to ICU with Levophed initiated. New lactic acid ordered stat and for 4 hours. Will check CVP as another indicator of volume status. Code status still Full Code. 12/27: Resolved, patient stable in PCU off of pressors. Continue to monitor for recurrence. 12/25: Patient required initiation of norepinephrine overnight. Blood pressure stable on norepinephrine. A discussion was had with the family regarding her current situation, they were made aware of her recent deterioration. She will remain a full code at this time, family will discuss her further care amongst themselves. 12/24: Developed septic shock today, T-max overnight of 103.4, hypotension with blood pressure as low as 76/42. Patient was given a 30 mL per KG fluid bolus. Patient was transferred to ICU and intensive care was consulted. (10) Meningitis Status: Resolved Response to Treatment: Stable, Improving Discussed With: Nurse, Patient Problem Specific Plan: Consult Specialist, Monitor Clinically, Repeat Labs Problem Text: 01/03: Final day of vancomycin and meropenem 01/01: Continue Vanco and meropenem until 01/03/17 12/30/2016: see ID note. IV Meropenem and Vancomycin until 01/03/17. 12/28 continue vancomycin and meropenem 12/27: As per infectious disease patient will continue on Vanco and meropenem for a treatment duration of 2 weeks 12/25: CSF PCR negative, repeat CSF Gram stain and culture was negative, anaerobic culture negative, blood culture 1 no growth after 24 hours 12/24: Patient had drain of scalp swelling yesterday which was consistent CSF, showing 718 white blood cells, 95% PMNs, glucose of 15, total protein of 82. She is concurrently being managed by infectious disease, she will continue on vancomycin and meropenem. 12/23: Pt with Nosocomial meningitis, she is being followed by ID. She has had LP with pleocytosis and neutrophils, her T protein is elevated. her cultures have been Neg but she had received Rocephin prior to LP being performed. Vanco/ Meropenam dosing per ID. (11) Diastolic congestive heart failure Permanent Comment: 12/22/16: Echocardiogram showed hyperdynamic left ventricular systolic function, LVEF 75%, atrial flutter. Moderate elevation of pulmonary artery systolic pressure. Mild aortic valve sclerosis, mild aortic regurgitation. Negative for mitral regurgitation. Mild left atrial dilation Last Edited By: Aydee Herman PA-C on Dec 23, 2016 10:09 Status: Chronic Problem Text: 12/28: acute decompensation yesterday when attempt to use fluid bolus to support hypotension was made. she developed mild dyspnea, cxr showed vascular engorgement, moved to ICU for levophed to address hypotension. 12/23 appears compensated. 12/21 BNP 1541 c mild decompensation-held IVF and amlo 2.5 BID-repeat TTE (12) Seizure disorder Status: Chronic Problem Text: 12/25: CSF PCR negative, repeat CSF Gram stain and culture was negative, anaerobic culture negative, blood culture 1 no growth after 24 hours 12/22: CSF culture did not show any organisms, CSF PCR still pending 12/21/2016: LP completed a 12/20/2016. Patient has some soreness in the back around puncture site. CSF culture pending. 2 focus 2 brain tumor resection 12/[address] head c stable STS/fluid collection seen on 12/18 CT-case dw Dr. Jordan who agrees favors fluid is 2 to necrotic tissue, but given fever/MS change, agrees c LP (as did Dr. Castillo)-case dw c Dr. Arturo Foster who wanted clearance from [facility] 12/19 Dr. Herrera increased leve to 1000 BID given sz episode-partially 2 UTI/hypoNa /? fluid collection 12/19 EEG This EEG in awake, drowsy states, stage 1 and 2 sleep is abnormal due to presence of left temporal intermittent rhythmic delta activity/temporal intermittent rhythmic delta activity (TIRDA) with separate to left central head region consistent with focal cortical structural or functional abnormality with epileptic potential. No clinical or electrographic seizures were recorded. Clinical correlation is recommended. DD: KERRI HERRERA MD 12/20/16 0658 12/18 CT head The patient is status post resection of a left temporal lobe tumor. There is postoperative change in the posterior left temporal lobe with decreased mass effect compared to the previous study. There is increased soft tissue swelling and fluid overlying the craniotomy site. (13) Anemia Status: Chronic Problem Specific Plan: Monitor Clinically Problem Text: 01/15: Hemoglobin has risen to 11.1, continue to monitor 01/11: Hemoglobin stable at 9.1, continue to monitor 01/08: Hemoglobin stable at 9.8 01/05: Hemoglobin at 9.5 today from 10.6 yesterday. Continue to monitor daily. 01/01: Hemoglobin stable at 9.8 12/29: Hemoglobin stable at 10.8 12/27: Hemoglobin stable at 10.3 12/25: Hemoglobin stable at 10.5 12/23 - No labs ordered, will obtain. Hgb had trended from 10.8 12/21 to 9.7 12/21/2016: Hemoglobin improving today, 10.8. caution on chronic po steroid (on panto 40 QD for px) 12/20 hgb down to 9.4 (10.2, 11.2)-check HO baseline hgb 12s (12/09 wt 69, 12/20 79) On Supplemental B12 and Iron. 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 Patient was set up for biopsy of the nodule to rule out primary lesion. The nodule could not be biopsied by interventional radiology secondary to size. Dr. Morales noted that the lesion was unlikely a primary metastatic lesion. Patient proceeded to have a biopsy of her brain mass which resulted in glioblastoma. Lung nodule will need to be followed as outpatient. 11/24/2016: I reconfirmed this assessment with Dr. 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 (developmental therapist) 11/19/16: Per Interventional Rad: most likely not a primary. Proceed with brain mass bx and pathology prior to lung nodule eval. 11/17/2016: Pulmonology, informal consult, advised against bronchoscopy. Recommends interventional to see if can get to nodule. Dr. Jordan is requesting that we strongly consider working up this lung nodule while she is in the hospital. He has a strong clinical suspicion that the brain lesion is metastatic. Additionally if she has a primary lung cancer it may change his recommendation to do an excisional bx of the brain lesion which almost assuredly leave her with some weakness and speech deficits. Tomorrow we should contact IR and/or Pulm to see whether CT guided bx or navigational bronchoscopy with bx is the best way to get a sample of this lesion. ------ CT Chest: 14 mm nodule in the anterior segment of the right lower lobe, not present on the comparison study. (17) Brain compression Status: Acute Response to Treatment: Controlled Problem Specific Plan: Monitor Clinically Problem Text: Dr. Jordan, brain edema and swelling treated with the left lateral ventriculostomy on 11/24/16. (18) HTN (hypertension) Status: Chronic Problem Specific Plan: Monitor Clinically Problem Text: BP is well controlled today. Continue current regimen of Bisoprolol (19) CAD (coronary artery disease) Status: Chronic Problem Specific Plan: Monitor Clinically Problem Text: No active symptoms (20) COPD (chronic obstructive pulmonary disease) Status: Chronic Problem Specific Plan: Monitor Clinically Problem Text: Stable Plan/VTE VTE Prophylaxis Ordered?: Yes (TEDs and SCDs) VTE Exclusion Pharmacological: Bleeding Risk (intracranial procedure) Plan Therapy: PT, OT Anticipated Discharge: Home With Services (based on therapy's recommendation) VS, I&O, 24H, Fishbone Vital Signs/I&O Vital Signs Date Time Temp Pulse Resp B/P (MAP) Pulse Ox O2 Delivery O2 Flow Rate FiO2 01/20/17 06:00 96.7 108 17 124/73 (90) 98 Nasal Cannula 2.0 Laboratory Data 24H LABS Laboratory Tests 2 01/20/17 05:32: Immature Granulocyte % (Auto) , Nucleated Red Blood Cells % (auto) 0.0, Neutrophils 90H, Band Neutrophils 1, Lymphocytes (Manual) 1L, Monocytes (Manual ) 7, Atypical Lymphocytes 1, Toxic Vacuolation 1+, Platelet Estimate NORMAL, Basophilic Stippling 1+, Anisocytosis 1+, Anion Gap 10, Glomerular Filtration Rate > 60.0, Blood Urea Nitrogen 26H, Creatinine 0.41L, Sodium Level 140, Potassium Level 3.7, Chloride Level 104, Carbon Dioxide Level 26, Calcium Level 10.1, Aspartate Amino Transf (AST/SGOT) 16, Alanine Aminotransferase (ALT/SGPT) 16, Alkaline Phosphatase 74, Total Bilirubin 0.3, Total Protein 4.8L, Albumin 1.6L, Albumin/Globulin Ratio 0.50L CBC/BMP Laboratory Tests 01/20/17 05:32 Red Blood Count 3.99 L, Mean Corpuscular Volume 80.2, Mean Corpuscular Hemoglobin 26.3 L, Mean Corpuscular Hemoglobin Concent 32.8, Red Cell Distribution Width 15.3 H, Calcium Level 10.1, Aspartate Amino Transf (AST/SGOT ) 16, Alanine Aminotransferase (ALT/SGPT) 16, Alkaline Phosphatase 74, Total Bilirubin 0.3, Total Protein 4.8 L, Albumin 1.6 L Microbiology Microbiology 01/12/17 Blood Culture - Final, Complete NO GROWTH AFTER 5 DAYS 01/12/17 Blood Culture - Final, Complete NO GROWTH AFTER 5 DAYS 01/13/17 Clostridium difficile (PCR) - Final, Complete 01/12/17 Respiratory Virus Panel (PCR) ([facility]) - Final, Complete 01/12/17 Catheter Tip Culture - Final, Complete AYDEE HERMAN PA-C Jan 20, 2017 10:09
[2017-01-20] MEDS: LORATADINE 10 MG TAB PO SCH (10:10)
[2017-01-20] MEDS: SUCRALFATE SUSP 1GM/10ML UD PO SCH ×4 (10:10→20:25)
[2017-01-20] MEDS: CALCIUM/VITAMIN D 500 MG TAB PO SCH ×2 (10:10→20:25)
[2017-01-20] MEDS: NYSTATIN 100,000 UNITS/GM TOPICAL PWD 15 GM TOP SCH ×2 (10:16→20:26)
[2017-01-20] MEDS: ACETAMINOPHEN 500 MG TAB PO PRN (12:45)
[2017-01-20 14:00] VITALS: BP 110/55
--- NOTE | 2017-01-20 14:54 | IPN ---
DATE: 01/20/2017 I met with Savanna Carballo's daughter. We discussed her condition as well as her poor prognosis. Yesterday, we spoke on the phone and she wanted to meet to discuss end of life planning, specifically being discharged home on hospice. We met and we discussed this today. We discussed options for her including discharge home on hospice. This would require her to have a DO NOT RESUSCITATE order as well as COMFORT MEASURES ONLY on her medical orders for life-sustaining treatment (MOLST) form. Kait was not prepared to sign this today. She wanted to meet with her siblings first. I filled the form out up to the point of them being able to sign it and we can institute those orders upon their agreement. Discussed with patient and family services, the nursing staff, and Kait that the patient could be discharged home on hospice as soon as arrangements are made.
[2017-01-20] MEDS ORDERED: NORCO, ANEXSIA 5/325MG TABLET (HYDROcodone/ACETAMINOPHEN) PO PRN (16:00)
[2017-01-20] MEDS: ROSUVASTATIN 10 MG TAB (CRESTOR) PO SCH (20:26)
[2017-01-20 22:00] VITALS: BP 133/71
[2017-01-21] MEDS: ALBUTEROL SULFATE 2.5 MG/0.5 ML INH NEB SOLN NEB SCH ×4 (01:49→20:02)
[2017-01-21 06:00] VITALS: BP 132/79
[2017-01-21 06:38] LABS: MEAN CORPUSCULAR HEMOGLOBIN 26.3 pg (27.0-33.0); MEAN CORPUSCULAR HGB CONC 32.1 g/dl (32.0-36.5); PLATELET COUNT, AUTOMATED 337 10^3/uL (150-450); RED CELL DISTRIBUTION WIDTH 15.5 % (11.5-14.5)
[2017-01-21 06:48] LABS: ADD MANUAL DIFFER YES; DIFF SLIDE NUMBER 5; POS COUNT POS FLAG; POSITIVE MORPH POS FLAG
[2017-01-21 07:06] LABS: ALBUMIN 1.7 GM/DL (3.2-5.2); ALBUMIN/GLOBULIN RATIO 0.52 (1.00-1.93); ALKALINE PHOSPHATASE 75 U/L (45-117); ALT/SGPT 17 U/L (12-78); ANION GAP 6 MEQ/L (8-16); AST/SGOT 16 U/L (7-37); BILIRUBIN,TOTAL 0.2 MG/DL (0.2-1.0); BLOOD UREA NITROGEN 25 MG/DL (7-18); CALCIUM LEVEL 10.2 MG/DL (8.8-10.2); CARBON DIOXIDE LEVEL 28 MEQ/L (21-32); CHLORIDE LEVEL 106 MEQ/L (98-107); GLOMERULAR FILTRATION RATE > 60.0 (>39); GLUCOSE, FASTING 90 MG/DL (83-110); POTASSIUM SERUM 3.8 MEQ/L (3.5-5.1); SODIUM LEVEL 140 MEQ/L (136-145)
[2017-01-21] MEDS: BUDESONIDE 0.5 MG/2 ML INHALATION SUSPENSION INH SCH ×2 (07:12→20:02)
--- NOTE | 2017-01-21 07:26 | IPNPDOC ---
Subjective Date Seen The patient was seen on 01/21/17. Subjective Chief Complaint/HPI The patient is a 76-year-old female admitted with a reason for visit of Brain Mass. Events since last encounter Family discussion held yesterday regarding Hospice care. Family opted out of Hospice and is requesting to start chemotx and radiation once patient is stable and C. Diff infection has resolved. This is per PFS notes. General: Reports: ROS Unobtainable Objective Physical Examination General Exam: Positive: Alert, No Acute Distress ENT Exam: Positive: Mucous membr. moist/pink Chest Exam: Positive: Clear to auscultation, Diminished, Negative: Rales, Rhonchi, Wheezing Heart Exam: Positive: Rate Normal, Irregular Rhythm, Normal S1, Normal S2, Negative: Gallops, Murmurs, Rubs Abdomen Exam: Positive: Normal bowel sounds, Soft, Negative: Tenderness Extremity Exam: Positive: Edema Psych Exam: Negative: Oriented x 3 Assessment /Plan Problems (1) C. difficile diarrhea Status: Acute Problem Text: 01/21/17: started Fidaxomicin yesterday. 01/20 - regimen changed yesterday per Dr Castillo. [place] [address]. She has 2 BMs yesterday. 01/19 - 5 BMs [place]. [place] [address], Vanco 250 Q6h 01/18 WBC slightly lower than yesterday. 2 documented BMs by midafternoon. Associated with poor appetite. Nutrition consult made. I&Os. 01/17 WBC 26.7 continues to trend down (from 35.5 yesterday). Still has loose stools, 4x yesterday. Continue with Vanco and probiotics. 01/16 - WBC trending down Still with diarrhea Cont higher dose oral Vanco and Probiotics. 01/15: White blood cell count has increased today, likely secondary to C. difficile infection, continue current treatment 01/14: Patient's PCR for C. difficile positive, she was started on vancomycin 250 mg by mouth every 6 hours overnight. We will back off on dose to vancomycin 125 mg by mouth every 6 hours as recommended by infectious disease (2) Glioblastoma multiforme Status: Chronic Problem Text: 01/21/17: Family has opted out of Hospice care per PFS. Will need to re-address patient's status. Patient is not in a condition to start Chemotherapy or radiation at this time. 01/20 - Plans for family meeting today with Dr Gregorio. 01/19: Reviewed chart, will need to determine NS plans to include PLANER OPERATOR shunt, and Onc recommendations regarding further treatment options then need to plan for Family meeting to discuss discharge planning and end of life care. Address with attending. 01/16: Family members understand that radiation or chemotherapy are poor options for her given her infections and weak state. They mentioned possible hospice care. 01/15: I spoke with Dr. Ramírez's on the phone today, she stated that she would be able to call the patient's family to give them an update on her status. She was provided with contact information for patient's daughter who is her healthcare proxy. I attempted to call Dr. Jordan's office but was unable to speak with him today. 01/14: Plan to discuss patient's care further tomorrow with Dr. Jordan in Dr. Ramírez's 01/13 - Per Dr. Jordan's note yesterday "family waiting for chemo and RT" - Plan needs to be clarified there had been discussion of PLANER OPERATOR shunt placement, but Dr. Jordan's notes do not indicate that he is planning this 01/08: A family visit was held yesterday, at this time family believes that they will be able to provide 24/7 care for her once she is discharged. There has been talk about patient potentially having a PLANER OPERATOR shunt placed early next week. 11/24/16 sp Stent-based frameless stereotactic left posterior temporal-parietal craniotomy with microsurgical resection of large mass, cranioplasty, and marked brain edema and swelling treated with the left lateral ventriculostomy for Left temporal-parietal GBM with brain swelling by Dr. Jordan (3) Cerebral ventriculitis Status: Resolved Problem Text: s/p Hospital Aquired Ventriculitis s/p biopsy of Astrocytoma [employer]CH[employer]IC grew Proprionibacterium Acnes 01/03: Final day of vancomycin and meropenem (4) Nausea & vomiting Status: Chronic Problem Text: 01/13 - No emesis reported since 01/08 It should be noted that 01/09 she had 40 cc CSF drained Not sure if this is what contributed to improvement in N/v in which case shunt may be in order Need to monitor symptoms - (5) Atrial fibrillation and flutter Status: Acute Problem Text: Telemetry has shown A-fib/Flutter since 12/22. Echo 12/22 showed a-flutter LA 4 cm Rate controlled on bisoprolol Not candidate for anticoagulation until after neurosurgical procedure (6) Regurgitation of food Status: Resolved Problem Text: 01/11: no further regurgitation seen or noted by nursing staff 01/07: Patient having some regurgitation while examining patient, continue to monitor 01/04: Per nursing most of the nausea happens when the patient tells them she is nervous. She has been nauseated today, but was able to keep down lunch and a snack. I have increased her olanzapine to BId, and have recommended that she take smaller bites and eat more slowly. Her family members do admit that she tends to "ibarra down food." chronic PP NBNB vomiting p solids-favor central nausea and gastritis-induced by anorexia, chronic po steroids, abx effect 01/03 changed ondansetron OD 4 AC TID 30 mins prior to meals, continue panto 40 qAM and + Carafate 1 AC TID/QHS, last day of vanco/meropen 01/[address] (7) Hypotension Status: Resolved Response to Treatment: Stable Problem Text: 01/15: Blood pressures remain stable 01/11: BPs remain stable 01/07: Blood pressure stable, continue to monitor 01/05: Stable today with pressures around 115-120/70-80. 01/04: Stable, today 103/54 01/03: Stable, continue dexamethasone 01/02: Blood pressure stable at 108/57 today, continue dexamethasone 01/01: Blood pressure 103/62 today, lowest blood pressure over last 24 hours 90/ 50. Patient has been stable for about the last 24 hours. Continue dexamethasone. 12/31/2016: soft BP this am 94/50. 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 01/10: Mental status continues to wax and wane, she was alert, verbal and able to answer questions appropriately today. 01/07: Patient not very conversive on examination today 01/06 - Her mental status waxes and wanes - alert at times and groggy at other times. 01/04: Patient is awake, alert and able to answer questions appropriately. 01/03: Somnolent and easily arousable, verbal and able to answer questions appropriately 01/02: Patient easily arousable today, verbal and able to answer questions appropriately 01/01: Patient initially sleepy but arousable on examination. Verbal and able to answer questions. Her changes in mental status appear to be secondary to her neurological condition. 12/31: Change in responsiveness compared to yesterday. CT head and chest today. Dr. Jordan, notified and will eval patient. (9) Septic shock Status: Resolved Problem Text: 01/06 - BP variable but overall stable on Bisoprolol 01/03: Final day of vancomycin and meropenem 01/01: Continue vancomycin and meropenem until 01/03/17 12/30/2016: see ID note. IV Meropenem and Vancomycin until 01/03/17. 12/29: Patient maintaining blood pressure without levophed. She did have some lower blood pressures around 1:00 this afternoon, she will remain in ICU through tomorrow. If she maintains her blood pressure, does not require restarting of pressors, she may be able to be transferred to PCU tomorrow. If patient does drop her blood pressure, hypotension may be secondary to pituitary dysfunction, consider trial of hydrocortisone 12/28: maintaining bp with 5mcg levophed, CVP 7. Rhythm varies between sinus and afib 12/28: BP down, respiratory difficulties with fluid challenge. Back to ICU with Levophed initiated. New lactic acid ordered stat and for 4 hours. Will check CVP as another indicator of volume status. Code status still Full Code. 12/27: Resolved, patient stable in PCU off of pressors. Continue to monitor for recurrence. 12/25: Patient required initiation of norepinephrine overnight. Blood pressure stable on norepinephrine. A discussion was had with the family regarding her current situation, they were made aware of her recent deterioration. She will remain a full code at this time, family will discuss her further care amongst themselves. 12/24: Developed septic shock today, T-max overnight of 103.4, hypotension with blood pressure as low as 76/42. Patient was given a 30 mL per KG fluid bolus. Patient was transferred to ICU and intensive care was consulted. (10) Meningitis Status: Resolved Response to Treatment: Stable, Improving Discussed With: Nurse, Patient Problem Specific Plan: Consult Specialist, Monitor Clinically, Repeat Labs Problem Text: 01/03: Final day of vancomycin and meropenem 01/01: Continue Vanco and meropenem until 01/03/17 12/30/2016: see ID note. IV Meropenem and Vancomycin until 01/03/17. 12/28 continue vancomycin and meropenem 12/27: As per infectious disease patient will continue on Vanco and meropenem for a treatment duration of 2 weeks 12/25: CSF PCR negative, repeat CSF Gram stain and culture was negative, anaerobic culture negative, blood culture 1 no growth after 24 hours 12/24: Patient had drain of scalp swelling yesterday which was consistent CSF, showing 718 white blood cells, 95% PMNs, glucose of 15, total protein of 82. She is concurrently being managed by infectious disease, she will continue on vancomycin and meropenem. 12/23: Pt with Nosocomial meningitis, she is being followed by ID. She has had LP with pleocytosis and neutrophils, her T protein is elevated. her cultures have been Neg but she had received Rocephin prior to LP being performed. Vanco/ Meropenam dosing per ID. (11) Diastolic congestive heart failure Permanent Comment: 12/22/16: Echocardiogram showed hyperdynamic left ventricular systolic function, LVEF 75%, atrial flutter. Moderate elevation of pulmonary artery systolic pressure. Mild aortic valve sclerosis, mild aortic regurgitation. Negative for mitral regurgitation. Mild left atrial dilation Last Edited By: Alexus Herman PA-C on Dec 23, 2016 10:09 Status: Chronic Problem Text: 12/28: acute decompensation yesterday when attempt to use fluid bolus to support hypotension was made. she developed mild dyspnea, cxr showed vascular engorgement, moved to ICU for levophed to address hypotension. 12/23 appears compensated. 12/21 BNP 1541 c mild decompensation-held IVF and amlo 2.5 BID-repeat TTE (12) Seizure disorder Status: Chronic Problem Text: 12/25: CSF PCR negative, repeat CSF Gram stain and culture was negative, anaerobic culture negative, blood culture 1 no growth after 24 hours 12/22: CSF culture did not show any organisms, CSF PCR still pending 12/21/2016: LP completed a 12/20/2016. Patient has some soreness in the back around puncture site. CSF culture pending. 2 focus 2 brain tumor resection 12/[address] head c stable STS/fluid collection seen on 12/18 CT-case dw Dr. Jordan who agrees favors fluid is 2 to necrotic tissue, but given fever/MS change, agrees c LP (as did Dr. Castillo)-case dw c Dr. Arturo Foster who wanted clearance from [facility] 12/19 Dr. Herrera increased leve to 1000 BID given sz episode-partially 2 UTI/hypoNa /? fluid collection 12/19 EEG This EEG in awake, drowsy states, stage 1 and 2 sleep is abnormal due to presence of left temporal intermittent rhythmic delta activity/temporal intermittent rhythmic delta activity (TIRDA) with separate to left central head region consistent with focal cortical structural or functional abnormality with epileptic potential. No clinical or electrographic seizures were recorded. Clinical correlation is recommended. DD: KERRI HERRERA MD 12/20/16 0658 12/18 CT head The patient is status post resection of a left temporal lobe tumor. There is postoperative change in the posterior left temporal lobe with decreased mass effect compared to the previous study. There is increased soft tissue swelling and fluid overlying the craniotomy site. (13) Anemia Status: Chronic Problem Specific Plan: Monitor Clinically Problem Text: 01/15: Hemoglobin has risen to 11.1, continue to monitor 01/11: Hemoglobin stable at 9.1, continue to monitor 01/08: Hemoglobin stable at 9.8 01/05: Hemoglobin at 9.5 today from 10.6 yesterday. Continue to monitor daily. 01/01: Hemoglobin stable at 9.8 12/29: Hemoglobin stable at 10.8 12/27: Hemoglobin stable at 10.3 12/25: Hemoglobin stable at 10.5 12/23 - No labs ordered, will obtain. Hgb had trended from 10.8 12/21 to 9.7 12/21/2016: Hemoglobin improving today, 10.8. caution on chronic po steroid (on panto 40 QD for px) 12/20 hgb down to 9.4 (10.2, 11.2)-check HO baseline hgb 12s (12/09 wt 69, 12/20 79) On Supplemental B12 and Iron. 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 Patient was set up for biopsy of the nodule to rule out primary lesion. The nodule could not be biopsied by interventional radiology secondary to size. Dr. Morales noted that the lesion was unlikely a primary metastatic lesion. Patient proceeded to have a biopsy of her brain mass which resulted in glioblastoma. Lung nodule will need to be followed as outpatient. 11/24/2016: I reconfirmed this assessment with Dr. 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 (web marketing strategist) 11/19/16: Per Interventional Rad: most likely not a primary. Proceed with brain mass bx and pathology prior to lung nodule eval. 11/17/2016: Pulmonology, informal consult, advised against bronchoscopy. Recommends interventional to see if can get to nodule. Dr. Jordan is requesting that we strongly consider working up this lung nodule while she is in the hospital. He has a strong clinical suspicion that the brain lesion is metastatic. Additionally if she has a primary lung cancer it may change his recommendation to do an excisional bx of the brain lesion which almost assuredly leave her with some weakness and speech deficits. Tomorrow we should contact IR and/or Pulm to see whether CT guided bx or navigational bronchoscopy with bx is the best way to get a sample of this lesion. ------ CT Chest: 14 mm nodule in the anterior segment of the right lower lobe, not present on the comparison study. (17) Brain compression Status: Acute Response to Treatment: Controlled Problem Specific Plan: Monitor Clinically Problem Text: Dr. Jordan, brain edema and swelling treated with the left lateral ventriculostomy on 11/24/16. (18) HTN (hypertension) Status: Chronic Problem Specific Plan: Monitor Clinically Problem Text: BP is well controlled today. Continue current regimen of Bisoprolol (19) CAD (coronary artery disease) Status: Chronic Problem Specific Plan: Monitor Clinically Problem Text: No active symptoms (20) COPD (chronic obstructive pulmonary disease) Status: Chronic Problem Specific Plan: Monitor Clinically Problem Text: Stable Plan/VTE VTE Prophylaxis Ordered?: Yes (TEDs and SCDs) VTE Exclusion Pharmacological: Bleeding Risk (intracranial procedure) Plan Therapy: PT, OT Anticipated Discharge: Home With Services (based on therapy's recommendation) VS, I&O, 24H, Fishbone Vital Signs/I&O Vital Signs Date Time Temp Pulse Resp B/P (MAP) Pulse Ox O2 Delivery O2 Flow Rate FiO2 01/21/17 00:08 Room Air 01/20/17 22:00 97.0 100 16 133/71 (91) 95 2.0 Laboratory Data 24H LABS Laboratory Tests 2 01/21/17 06:14: Immature Granulocyte % (Auto) , Nucleated Red Blood Cells % (auto) 0.0, Anion Gap 6L, Glomerular Filtration Rate > 60.0, Blood Urea Nitrogen 25H, Creatinine 0.40L, Sodium Level 140, Potassium Level 3.8, Chloride Level 106, Carbon Dioxide Level 28, Calcium Level 10.2, Aspartate Amino Transf (AST/SGOT) 16, Alanine Aminotransferase (ALT/SGPT) 17, Alkaline Phosphatase 75, Total Bilirubin 0.2, Total Protein 5.0L, Albumin 1.7L, Albumin/Globulin Ratio 0.52L CBC/BMP Laboratory Tests 01/21/17 06:14 Red Blood Count 4.10, Mean Corpuscular Volume 82.0, Mean Corpuscular Hemoglobin 26.3 L, Mean Corpuscular Hemoglobin Concent 32.1, Red Cell Distribution Width 15.5 H, Calcium Level 10.2, Aspartate Amino Transf (AST/SGOT) 16, Alanine Aminotransferase (ALT/SGPT) 17, Alkaline Phosphatase 75, Total Bilirubin 0.2, Total Protein 5.0 L, Albumin 1.7 L Microbiology Microbiology 01/12/17 Blood Culture - Final, Complete NO GROWTH AFTER 5 DAYS 01/12/17 Blood Culture - Final, Complete NO GROWTH AFTER 5 DAYS 01/13/17 Clostridium difficile (PCR) - Final, Complete 01/12/17 Respiratory Virus Panel (PCR) ([facility]) - Final, Complete 01/12/17 Catheter Tip Culture - Final, Complete Nancy Johns Jan 21, 2017 07:26
[2017-01-21 07:56] LABS: BANDS 2 % (< 11)
[2017-01-21 07:57] LABS: ANISOCYTOSIS 1+; POIKILOCYTOSIS 1+
[2017-01-21] MEDS: CALCIUM/VITAMIN D 500 MG TAB PO SCH ×2 (08:10→20:19)
[2017-01-21] MEDS: FIDAXOMICIN 200 MG TAB (DIFICID) PO SCH ×2 (08:10→20:19)
[2017-01-21] MEDS: LORATADINE 10 MG TAB PO SCH (08:10)
[2017-01-21] MEDS: SUCRALFATE SUSP 1GM/10ML UD PO SCH ×4 (08:10→20:18)
[2017-01-21] MEDS: CYANOCOBALAMIN 500 MCG TAB PO SCH (08:10)
[2017-01-21] MEDS: LACTOBACILLUS ACIDOPHILUS CAP (BACID) PO SCH ×2 (08:10→20:18)
[2017-01-21] MEDS: NYSTATIN 100,000 UNITS/GM TOPICAL PWD 15 GM TOP SCH ×2 (08:10→20:19)
[2017-01-21] MEDS: ONDANSETRON 4 MG ORAL DISINTEGRATING TAB (S0181) PO SCH ×3 (08:10→16:08)
[2017-01-21] MEDS: PREPARATION H OINTMENT (HEMORRHOID) PR PRN (08:10)
[2017-01-21] MEDS: OLANZapine 2.5MG TABLET PO SCH ×2 (08:10→20:19)
[2017-01-21] MEDS: levETIRAcetam 250MG TABLET (KEPPRA) PO SCH ×2 (08:10→20:19)
[2017-01-21] MEDS: ACETAMINOPHEN TAB 650MG DOSE (2X325MG) PO PRN ×3 (09:33→20:20)
[2017-01-21 14:00] VITALS: BP 130/70
--- NOTE | 2017-01-21 15:06 | IPN ---
DATE: 01/21/2017 This dictation supplements Nancy Johns's note from today. I met with the family Thursday and Thursday of this week to discuss the patient's poor clinical condition, probable residual tumor seen on MRI scan, recent hospital acquired meningitis with septic shock, current C. difficile colitis resistant to conventional therapy and being treated with Dificid. Patient has had no clinical improvement over several weeks and after discussion with members of our rounding group, infectious disease and oncology, it was felt that hospice was the patient's best option. Apparently, neurosurgery rounded yesterday (there were no notes either dictated or written and the details of Dr. Jordan's discussion with the family come from the family and not anything that I can find in the record). Per the family, he did not feel she was appropriate for hospice and thought that she would recover and should be receiving radiation chemotherapy. I called Dr. Maryann Smith to confirm my impression that she did not feel the patient was a candidate for chemotherapy and she confirmed that this patient is not an appropriate candidate for chemotherapy. She has active C. difficile colitis, is bed bound and debilitated. She also indicated that Dr. Amezquita does not feel the patient is a candidate for radiation therapy as well. Essentially at this point, the family has been told two conflicting prognoses. It is my opinion this patient's clinical condition has failed to improve, that her prognosis is poor, and that hospice is the most compassionate and appropriate option. The daughter in her room today is angry at this opinion and wants to believe the neurosurgical opinion this patient will someday recover and return to her previous status. My professional opinion is that this is extremely unlikely. However, since the neurosurgical visit yesterday, the patient's family is adamantly opposed to hospice care. At this point, I do not see this situation improving at all. She will probably be slowly declining over the next several months. She has been admitted for two months already now and attempt to discharge to hospice, which I thought was the most appropriate disposition, are now being abandoned.
[2017-01-21 17:15] VITALS: BP 139/71
[2017-01-21] MEDS ORDERED: SCOPOLAMINE 1MG TRANSDERMAL PATCH TOP PRN (17:45)
[2017-01-21] MEDS ORDERED: MORPHINE 2 MG/ML 1ML SYRINGE IV PRN (17:45)
[2017-01-21] MEDS ORDERED: LORazepam 2 MG/ML VIAL (J2060) IV PRN (17:45)
[2017-01-21] MEDS: ROSUVASTATIN 10 MG TAB (CRESTOR) PO SCH (20:18)
--- NOTE | 2017-01-21 22:13 | IPN ---
DATE: 01/21/2017 I had extensive conversations this evening with Mrs. Santos's daughter and healthcare proxy Kait, as well as her son Arcenio ([phone]). These discussions were initiated by Kait, who found her mother stating that she felt that she was going to soon. When she came to visit her mother this evening, the patient indicated she thought she was going to soon and she wanted to be home. She stated that she "just wanted to be comfortable" and wanted to be discharged from the hospital as soon as possible. I had a conversation with Kait and then at her request I called her brother Arcenio who shares healthcare proxy duties. They both affirmed that they wanted their mother to enroll in hospice care. They were hoping it could happen today, but we lost a day due to the delays described in my previous dictation today. With their permission and agreement, a Medical Orders for Life-Sustaining Treatment (MOLST) form was signed for comfort measures only and DO NOT RESUSCITATE status. I initiated comfort measures only orders for palliative end of life care. Patient and family services (PFS) can help facilitate hospice involvement and the patient's family is hoping for her discharge at the earliest opportunity home for end of life care through hospice.
[2017-01-22] MEDS: ALBUTEROL SULFATE 2.5 MG/0.5 ML INH NEB SOLN NEB SCH ×2 (02:12→07:23)
[2017-01-22] MEDS: BUDESONIDE 0.5 MG/2 ML INHALATION SUSPENSION INH SCH (07:23)
[2017-01-22] MEDS: ONDANSETRON 4 MG ORAL DISINTEGRATING TAB (S0181) PO SCH ×2 (08:44→13:19)
[2017-01-22] MEDS: SUCRALFATE SUSP 1GM/10ML UD PO SCH ×2 (08:44→13:19)
[2017-01-22] MEDS: LORATADINE 10 MG TAB PO SCH (08:45)
[2017-01-22] MEDS: LACTOBACILLUS ACIDOPHILUS CAP (BACID) PO SCH (08:45)
[2017-01-22] MEDS: CALCIUM/VITAMIN D 500 MG TAB PO SCH (08:45)
[2017-01-22] MEDS: levETIRAcetam 250MG TABLET (KEPPRA) PO SCH (08:46)
[2017-01-22] MEDS: CYANOCOBALAMIN 500 MCG TAB PO SCH (08:46)
[2017-01-22] MEDS: FIDAXOMICIN 200 MG TAB (DIFICID) PO SCH (08:46)
[2017-01-22] MEDS: OLANZapine 2.5MG TABLET PO SCH (08:47)
[2017-01-22] MEDS: NYSTATIN 100,000 UNITS/GM TOPICAL PWD 15 GM TOP SCH (08:48)
[2017-01-22] MEDS ORDERED: HYOS0.1258 PO (10:27)
[2017-01-22] MEDS ORDERED: DIFI200T PO (10:27)
[2017-01-22] MEDS ORDERED: MORP20SO3 PO (10:27)
[2017-01-22] MEDS ORDERED: ATIV1TAB10 PO (10:27)
--- NOTE | 2017-01-22 11:14 | DSES ---
DATE OF ADMISSION: 11/11/2016 DATE OF DISCHARGE: PRINCIPAL DIAGNOSIS: Glioblastoma, WHO Grade IV, IDH wild type, ATRX expression retained. PRINCIPAL PROCEDURES: Stent based frameless stereotactic left posterior temporal parietal craniotomy with microsurgical resection of large mass, cranioplasty, marked brain edema and swelling treated with left lateral ventriculostomy by Dr. Jordan 11/24/2016. Right subclavian CVP placement by Dr. Manolo Bates for hypovolemia and hypotension on 12/24/2016. Aspiration of cerebrospinal fluid 12/23/[address] Jordan. Left parietal bur hole placement and stereotactic brain tumor biopsy by Dr. Andres on 11/14/2016. SECONDARY DIAGNOSES: 1. 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 2. Hypotensive shock secondary to sepsis requiring fluid resuscitation and pressors in intensive care unit (ICU). 3. Heart failure with preserved ejection fraction. 4. Seizure disorder. 5. Anemia of chronic disease. 6. Hyponatremia. 7. Escherichia (E) coli urinary tract infection. 8. Ligia nodule significance uncertain. 9. Coronary artery disease. 10. Cerebral edema secondary to brain tumor. 11. Chronic obstructive pulmonary disease (COPD). 12. Hypertension. 13. Clostridium (C) difficile colitis, NAP1 positive. 14. Feeding difficulties. CONSULTATIONS: 1. Dr. Isaac. 2. Dr. Castillo. 3. Dr. Maryann Smith. 4. Dr. Jordan. HISTORY: Savanna Santos was admitted with a brain mass. Details are on the initial admission note. HOSPITAL COURSE: The patient was admitted to a medical bed. She had extensive workup. It was felt that the brain mass was probably primary. She had a biopsy and neurosurgery as summarized above. She underwent a brain biopsy by Dr. Andres on 11/14/2016. The results were nondiagnostic. She ultimately had a craniotomy as summarized above with pathology as noted above. She had a shan postoperative course including meningitis/ventriculitis with P. acnes growing out of her spinal fluid, treated with prolonged antibiotic therapy. She developed C. Difficile colitis that was NAP1 positive. She was on vancomycin. She did not respond to it and was placed on Dificid to which she did have a clinical response. She went into septic shock from the meningitis and had to be transferred to the intensive care unit (ICU). Details of all this are in her record. She was seen by oncology, Dr. Maryann Smith, who did not feel that the patient had the performance status to tolerate chemotherapy. She discussed the situation with Dr. Amezquita who did not feel the patient would be a good candidate for radiation therapy. The family was approached on several occasions about the possibility of palliative care through hospice. They accepted this towards the last few days of her hospitalization. We had a delay on discharge, it is summarized in the dictated notes, but ultimately the family requested comfort measures only (HOSPITAL NURSE) status on the evening of 01/21/2017 and it was requested by the patient that she get home as soon as possible as the patient understands and expresses to her family that she feels she is near the end of her life and wants to be home for the end of life care. DISPOSITION: Patient is discharged home with hospice. DISCHARGE MEDICATIONS: - Dificid 200 mg twice a day for five days - hyoscyamine 0.125 mg tablets every 4 hours as needed for terminal secretions - Ativan 1 mg one half to one tablet every 4 hours as needed for agitation - morphine sulfate concentrate 100 mg per 5 mL, 0.5 to 1 mL every 2 hours as needed for pain or dyspnea PROGNOSIS: Poor. The case has been discussed with Dr. Barr, her primary provider. He is aware of her discharge and discharge plans. Appreciate Dr. Maryann Smith assistance in clarifying prognosis and helping the family come to understand the need for palliative care.
== END 2017-01-22 14:08 | disposition hospice, home (50) | DRG 25 ==
LOC: M MSPAV 16:54 → M ICU 11-14 13:24 → M MSPAV 11-18 11:40 → M ICU 11-24 12:43 → M PCU 11-28 19:59 → M MSPAV 11-29 18:00 → M ICU 12-19 18:06 → M PCU 12-21 15:50 → M ICU 12-24 13:00 → M PCU 12-26 13:41 → M ICU 12-28 02:55 → M PCU 12-30 16:40 → M MSPAV 01-09 20:15
PROVIDERS: ADMIT Family Medicine; ATTEND Family Medicine
PROC: 00B00ZX Excision of Brain, Open Approach, Diagnostic (ICD-10-PCS; principal; 2016-11-14 08:30)
PROC: 00B00ZZ Excision of Brain, Open Approach (ICD-10-PCS; 2016-11-24)
PROC: 00900ZZ Drainage of Brain, Open Approach (ICD-10-PCS; 2016-11-24)
PROC: 009 Central Nervous System and Cranial Nerves, Drainage (ICD-10-PCS; 2016-12-23)
PROC: 02HV33Z Insertion of Infusion Device into Superior Vena Cava, Percutaneous Approach (ICD-10-PCS; 2016-12-24)
PROC: 009U3ZX Drainage of Spinal Canal, Percutaneous Approach, Diagnostic (ICD-10-PCS; 2016-12-30)
PROC: 009U3ZX Drainage of Spinal Canal, Percutaneous Approach, Diagnostic (ICD-10-PCS; 2017-01-09)
DX: C71.2 Malignant neoplasm of temporal lobe (principal); G93.6 Cerebral edema; G93.5 Compression of brain; A41.9 Sepsis, unspecified organism; G93.40 Encephalopathy, unspecified; I50.33 Acute on chronic diastolic (congestive) heart failure; G00.9 Bacterial meningitis, unspecified; R65.21 Severe sepsis with septic shock; G04.39 Other acute necrotizing hemorrhagic encephalopathy; E87.1 Hypo-osmolality and hyponatremia; N39.0 Urinary tract infection, site not specified; E87.2 Acidosis; G91.0 Communicating hydrocephalus; A04.72 Enterocolitis due to Clostridium difficile, not specified as recurrent; I48.92 Unspecified atrial flutter; G81.91 Hemiplegia, unspecified affecting right dominant side; Z51.5 Encounter for palliative care; Z66 Do not resuscitate; G44.52 New daily persistent headache (NDPH); I11.0 Hypertensive heart disease with heart failure; D50.9 Iron deficiency anemia, unspecified; J45.30 Mild persistent asthma, uncomplicated; J44.9 Chronic obstructive pulmonary disease, unspecified; E78.5 Hyperlipidemia, unspecified; E55.9 Vitamin D deficiency, unspecified; I25.10 Atherosclerotic heart disease of native coronary artery without angina pectoris; R91.1 Solitary pulmonary nodule; G56.01 Carpal tunnel syndrome, right upper limb; I25.2 Old myocardial infarction; R73.01 Impaired fasting glucose; M51.36 Other intervertebral disc degeneration, lumbar region; G40.909 Epilepsy, unspecified, not intractable, without status epilepticus; M47.892 Other spondylosis, cervical region; M16.12 Unilateral primary osteoarthritis, left hip; E87.6 Hypokalemia; K29.70 Gastritis, unspecified, without bleeding; I48.91 Unspecified atrial fibrillation; F06.33 Mood disorder due to known physiological condition with manic features; H53.461 Homonymous bilateral field defects, right side; R47.02 Dysphasia; K64.8 Other hemorrhoids; B96.20 Unspecified Escherichia coli [E. coli] as the cause of diseases classified elsewhere; K59.00 Constipation, unspecified; Z99.81 Dependence on supplemental oxygen; Z88.0 Allergy status to penicillin; Z88.2 Allergy status to sulfonamides; Z87.891 Personal history of nicotine dependence; Z88.5 Allergy status to narcotic agent; Z88.8 Allergy status to other drugs, medicaments and biological substances; Z79.82 Long term (current) use of aspirin; Z79.02 Long term (current) use of antithrombotics/antiplatelets; Z79.899 Other long term (current) drug therapy; Z77.22 Contact with and (suspected) exposure to environmental tobacco smoke (acute) (chronic); Z95.1 Presence of aortocoronary bypass graft; Y95 Nosocomial condition

== ENCOUNTER → 2016-11-11 | Outpatient (CLI) | payer OTHER ==
[~2016-11-11] MED LIST changes: +ACET30TAB PO; +ADV250INH INH; +AMLO25TA PO; +ASPI81TA18 PO; +ASTE0.15; +AVAP150T31 PO; +BENA25TA10 PO; +BISO10TA PO; +BISO5TAB5 PO; +CALC1TAB74 PO; +CLAR1TAB2 PO; +COLA100C5 PO; +DESFLURANE 240 ML INHALANT As Ordered ONE; +FERR240T PO; +FERR32TA PO; +GLYCOPYRROLATE INJ 0.2 MG/ML 2 ML VIAL As Ordered ONE; +MELA3TAB49 PO; +MIDAZOLAM INJ 2 MG/2 ML VIAL (J2250) As Ordered ONE; +MIRA3350 PO; +MULT1CHW39 PO; +NEOSTIGMINE 10 MG/10 ML VIAL (J2710) As Ordered ONE; +OMEG100011 PO; +PHENYLEPHRINE INJ 10MG/ML VIAL (J2370) As Ordered ONE; +PHENYLephrine HCL 500 MCG/5 ML (100MCG/ML) SYRINGE (J2370) As Ordered ONE; +PROPOFOL 500 MG/50 ML VIAL As Ordered ONE; +PROT1TAB2 PO; +REMIFENTANIL 1MG 3ML VIAL As Ordered ONE; +ROCURONIUM BROMIDE 50 MG/5 ML VIAL/SYRINGE As Ordered ONE; +VITA10006 PO; +VITA100066 PO; +VITMTA PO; +ePHEDrine SULFATE 25 MG/5 ML(5MG/ML) SYRINGE As Ordered ONE; +fentaNYL 100 MCG/2 ML INJECTION (J3010) As Ordered ONE
--- NOTE | 2016-11-11 10:32 | REP ---
CT Head without contrast HISTORY: Headache COMPARISON: None Decreased density consistent with edema is present in the posterior left temporal and parietal lobes. There is mass effect with partial effacement of the overlying cortical sulci and posterior body and atrium of the left lateral ventricle. There is no midline shift. There is no intraparenchymal hemorrhage or infarct. There is no hydrocephalus or extra cerebral collection. There is no fracture. The visualized sinuses are clear. IMPRESSION: There is edema with mass effect in the posterior left temporal and parietal lobes without midline shift. This is secondary to an underlying mass. Contrast enhanced CT is recommended for further evaluation. Signed by Elias Ruelas MD 11/11/2016 10:23 A
== END ==
LOC: M RAD 09:39
PROVIDERS: ATTEND Nurse Practitioner Family
DX: G44.52 New daily persistent headache (NDPH) (principal); G93.89 Other specified disorders of brain; G93.6 Cerebral edema

== ENCOUNTER → 2016-12-04 | Outpatient (CLI) | payer OTHER ==
[~2016-12-04] MED LIST changes: +ADV250INH INH; +BISO5TAB5 PO; +CALC1TAB74 PO; +FERR32TA PO; +VITMTA PO
--- NOTE | 2016-12-08 09:32 | RADONC ---
RADIATION ONCOLOGY CONSULTATION NOTE DATE: 12/04/2016 CHART NUMBER: [id number] DIAGNOSIS: Glioblastoma multiforme. GRADE: 4. ECOG PERFORMANCE STATUS: 3. CONSULTATION NOTE: Ms. Santos is a very pleasant 76-year-old white female with the diagnosis of glioblastoma multiforme who is presenting to us today status post craniotomy for consideration of external beam radiation therapy with IMRT / IGRT as a therapeutic option. HISTORY OF PRESENT ILLNESS: The patient was in the usual state of health until recently when she began developing some headaches and difficulty with speech. An MRI of the brain was done 11/12/2016 which showed a ring enhancing mass in the left temporal lobe consistent with a high-grade lymphoma. Of note CT scan of the chest done 11/11/2016 showed a 14 mm nodule in the anterior segment of the right lower lobe which was not present on previous CT done on February 04, 2006. On 11/24/2016 the patient underwent craniotomy for her left temporal parietal mass lesion in the brain. Pathology revealed a grade 4 glioblastoma multiforme. She is doing well since surgery and is now presenting for consideration of definitive external beam radiation therapy with IMRT. PAST MEDICAL HISTORY: The patient's past medical history is positive for arthritis, bronchitis, MRSA, hypertension, urinary tract infections, asthma, emphysema, coronary problems with bypass surgery and a history of seizure activity as a child. In addition, the patient had bilateral cataract surgeries, a tonsillectomy and appendectomy some type of bladder surgery, hysterectomy, a cholecystectomy some type of esophageal surgery in the past. ALLERGIES: The patient is allergic to PENICILLIN, MEPERIDINE, CALCIUM CHANNEL BLOCKERS, and SULFA DRUGS. SOCIAL HISTORY: The patient does not use alcohol or cigarettes. FAMILY HISTORY: The patient's family history is positive for a father with lung cancer. A paternal grandfather with prostate cancer, and a son with Hodgkin's lymphoma. REVIEW OF SYSTEMS: The patient's review of systems is positive for anxiety, weight loss, lack of energy physical limitations, dizziness, migraine headaches, weakness in her arms and legs, sore throat, generalized aches and pains dental problems. She denies nausea, vomiting, fevers, chills, night sweats, chest pain. PHYSICAL EXAMINATION: The patient is a 76-year-old white female who is presenting in a wheelchair. HEENT: Exam is positive for a healing surgical scar present over her left temporal region. There is surgical vickie still in place. The wound has not yet healed and indeed is only 10 days out. There is no evidence of other trauma to the head. HEENT: Exam is normocephalic, atraumatic. Extraocular movements are intact. There is no palpable cervical, supraclavicular, infraclavicular, axillary or inguinal lymphadenopathy present. Her lungs are clear to auscultation and percussion. Her heart has regular rate and rhythm. Her abdomen is benign with no hepatosplenomegaly, masses or tenderness. Neurologically: She appears to be intact to sensory and motor. Skeletal examination reveals no tenderness to pressure or percussion of the bony skeleton. IMAGING: I have personally reviewed the patient's MRI done 11/12/2016 which showed a ring enhancing mass in the left temporal lobe. In addition, I have personally reviewed the patient's CT scan of the chest which showed the 14 mm nodule in the anterior segment of the right lower lobe. MEDICAL NECESSITY: IMRT/IGRT is clinically indicated for the highly conformal dose planning required. The target volume is in close proximity to critical structures, such as the normal brain, brainstem, eyes, optic nerves, spinal cord. The volume of interest must be covered with narrow margins to adequately protect immediately adjacent structures. The plan requires interpretation of complex testing such as CT localization. As noted above, special planning (IMRT) and localizing (IGRT) is required and essential to maximally protect sensitive normal tissue structures which cannot be accomplished using conventional 3-dimensional planning. ASSESSMENT Clearly the patient is a candidate for external beam radiation therapy and I have so informed her. I have discussed with the patient in detail the potential benefits as well as possible acute and chronic sequelae of external beam radiation therapy. We have discussed the logistics of treatment planning, simulation and subsequent fractionated daily radiation treatments. The patient is still only 10 days since surgery and her surgical wound has not yet healed. Therefore we will undertake the planning session sometime next week and radiation treatments will follow subsequently. Thank you for allowing us to participate in the care of this very pleasant woman. If I could be of any further assistance or provide you with any information, please feel free to contact me at anytime. We will also coordinate her care with medical oncology. Clearly it [facility], this will be coordinated. cc: Day Charlotte, MD FarMD Vipul Vaughn MD Rory Sears, DO FCCP Tushar Barr MD
== END ==
LOC: M ONCR 08:00
PROVIDERS: ATTEND Radiology Radiation Oncology
DX: C71.9 Malignant neoplasm of brain, unspecified (principal)